=== PATIENT | male | born 1950 | race Caucasian/White ===

== ENCOUNTER 2019-06-18 12:07 | Observation (INO) | payer MEDICARE, OTHER, SELFPAY ==
[2019-06-18] VITALS (16 sets, daily range): BP systolic 122–177; BP diastolic 78–101; PULSE 66–98; RESP 14–21; TEMP 36.5–36.6; O2SAT 96–99; BMI 28.8; BMI 27.1
[2019-06-18 12:25] LABS: Bedside Glucose 133 mg/dL (70-110)
--- NOTE | 2019-06-18 12:30 | CM.ED ---
SOCIAL WORK RESPONDED TO STROKE ALERT. NO FAMILY PRESENT AT THIS TIME. THIS WORKER TO REMAIN AVAILABLE FOR NEEDS. Eva MADDEN, HEAD SCREEN WORKER, NET UI DEVELOPER.
--- NOTE | 2019-06-18 12:35 | CT_ITS ---
We are attempting to reach an attending provider to discuss findings. An addendum with communication details will be sent when the communication is complete. STUDY: CT BRAIN WITHOUT CONTRAST REASON FOR EXAM: Male, 68 years old. RT EYE TWITCHING, CVA RADIATION DOSAGE (If Supplied By Facility): CTDIvol = ( 44.99 ) mGy, DLP = ( 779.24 ) mGycm TECHNIQUE: Transaxial CT imaging of the brain was performed without administration of intravenous contrast material. Individualized dose optimization techniques were used for this CT. CLINICAL HISTORY: 68 years Male, RT EYE TWITCHING, CVA COMPARISON: TECHNIQUE: A CT scan of the head was performed without IV contrast in the axial plane. Coronal and sagittal reconstruction images were also obtained. This exam was performed according to our departmental dose-optimization program, which includes automated exposure control, adjustment of the mA and/or kV according to patient size and/or use of iterative reconstruction technique. FINDINGS: The rosette, medulla, and cerebellum appear to be normal. The ventricles appear normal in size. There appears to be some mild asymmetry in the right frontal cortical sulci probably due to mild head rotation. The basal ganglia appear to be normal. The inner and outer tables of the skull are intact. The frontal, ethmoid, maxillary, and sphenoid sinuses are normal. The mastoid air cells are normal. CT/Brain/Head without Contrast IMPRESSION: Normal CT scan of the head. Electronically Signed: Zach Escobedo, at 13:06 EST Tel , Service support ,
--- NOTE | 2019-06-18 12:41 | EKG12_ITS ---
Test Reason : STROKE ALERT Blood Pressure : / mmHG Vent. Rate : 081 BPM Atrial Rate : 081 BPM P-R Int : 156 ms QRS Dur : 110 ms QT Int : 402 ms P-R-T Axes : 033 013 006 degrees QTc Int : 466 ms Normal sinus rhythm Normal ECG Confirmed by OSEAS AGUERO, JESSI ([id number]), production editor DEN HECK ([id number]) on 06/23/2019 8:43:17 AM Referred By: RICK Confirmed By:ALEX FAROOQ MD
--- NOTE | 2019-06-18 12:45 | RAD_ITS ---
EXAM DESCRIPTION: PORTABLE AP CHEST CLINICAL HISTORY: 68 years Male, blurred vision, stroke protocol blurred vision, stroke protocol COMPARISON: None FINDINGS: The thorax is intact. The heart and mediastinum appear to be within normal limits. The patient''s taken a somewhat poor inspiratory effort with mild eventration of the right hemidiaphragm. This is causing some mild vascular and interstitial crowding in the right perihilar region. There is no evidence of pneumonic consolidation or pleural effusion. RAD/Chest 1 View IMPRESSION: No acute pathology. Electronically Signed: Zach Escobedo, at 13:56 EST Tel , Service support ,
[2019-06-18 12:53] LABS: Absolute Lymphocyte Count 1.13 X10^3/uL (0.83-4.51); Basophil# 0.05 X10^3/uL; Basophil% 0.9 % (0-1); Eosinophil# 0.22 X10^3/uL; Eosinophils% 3.8 % (0-5); Hematocrit 41.9 % (40-54); Hemoglobin 14.4 g/dL (13.0-16.5); Lymphocyte # 1.13 X10^3/ul (4.0); Lymphocyte % 19.3 % (19-41); Mean Corp Hgb Conc 34.4 g/dL (32-36); Mean Corpuscular Hgb 32.1 pg (27.0-32.0); Mean Corpuscular Volume 93.5 fL (80-94); Mean Platelet Vol. 8.8 fl (6.2-12.0); Monocyte# 0.48 X10^3/uL; Monocyte% 8.2 % (0-10); NRBC Flagged by Analyzer 0 % (0-5); Neutrophil # 3.97 X10^3/uL (2.7-7.7); Neutrophil % 67.6 % (47-70); Platelet Count 272 K/mm3 (150-450); RBC Distribution Width CV 12.9 % (11.6-14.6); RBC Distribution Width SD 44.1 fl (35.1-43.9); Red Blood Count 4.48 M/mm3 (4.6-6.2); White Blood Count 5.9 K/mm3 (4.4-11.0)
[2019-06-18 13:02] LABS: International Normalized Ratio 1.1; Prothrombin Time (Protime)PT. 13.8 SECONDS (11.7-14.9)
[2019-06-18 13:03] LABS: Partial Thromboplast Time 28.3 Seconds (24.1-36.2)
--- NOTE | 2019-06-18 13:10 | CT_ITS ---
STUDY: CTA HEAD AND NECK WITH CONTRAST REASON FOR EXAM: Male, 68 years old. VISION CHANGES RADIATION DOSAGE (If Supplied By Facility): CTDIvol = ( 17.43 ) mGy, DLP = ( 720.02 ) mGycm TECHNIQUE: CT angiography was performed with a multi-detector CT scanner. Data acquisition was obtained from the skull base through the vertex following intravenous administration of 100ML [id number]. MIP images were reconstructed from the axial data set. Post-processing of the angiographic images was performed, with multiplanar reformation and 3D reconstruction. Individualized dose optimization techniques were used for this CT. COMPARISON: No relevant priors. FINDINGS: Normal bilateral petrous carotid arteries. Normal right cavernous carotid artery with a normal supraclinoid bifurcation. Normal left cavernous carotid artery with a normal supraclinoid bifurcation. There is hypoplastic development of the right A1 segment of the anterior cerebral arteries with an atretic but intact artery. Normal left A1 segments of the anterior cerebral artery. Normal intact anterior communicating artery (ACOM). Normal bilateral A2 segments of the anterior cerebral arteries. Normal right M1 and M2 segments of the middle cerebral arteries, with a normal M1 bifurcation. Normal left M1 and M2 segments of the middle cerebral arteries, with a normal M1 bifurcation. There is a persistent origin of the right posterior cerebral artery with absence of the posterior communicating artery (PCOM). Normal left posterior communicating artery (PCOM). Normal bilateral vertebral arteries. Normal basilar artery with a normal basilar bifurcation. The visualized bilateral superior cerebellar (SCA) arteries are normal. Normal bilateral P1, P2 and visualized P3 segments of the posterior cerebral arteries. There is no demonstrated aneurysm of the [place]. There is no demonstrated abnormality of the visualized brain. AORTIC ARCH: There is a bovine origin of the great vessels arising from the aortic arch with a common origin of the brachiocephalic and left common carotid artery. Normal origin of the left subclavian artery. Normal origins of the brachiocephalic, left common carotid, and left subclavian arteries. RIGHT CAROTID ARTERIES: Normal right common carotid artery (CCA). There is moderate atherosclerotic plaque formation with moderate narrowing of the right carotid bulb. There is moderate atherosclerotic plaque formation of the origin of the right internal carotid artery with an estimated stenosis of 50-69% stenosis. Normal visualized cervical portion of the right internal carotid artery. Normal origin of the right external carotid artery (ECA). LEFT CAROTID ARTERIES: Normal left common carotid artery (CCA). There is mild atherosclerotic plaque formation with minimal narrowing of the left carotid bulb. There is mild atherosclerotic plaque formation of the origin of the left internal carotid artery with less than 50% cross sectional diameter stenosis. Normal visualized cervical portion of the left internal carotid artery. Normal origin of the left external carotid artery (ECA). VERTEBRAL ARTERIES: Normal bilateral vertebral arteries. CT/CTA Head AND Neck W/ Contrast IMPRESSION: 1. Bovine arch. 2. Moderate (60%) (right carotid stenosis. 3. Mild (30%) stenosis left carotid stenosis. 4. Patent vertebral arteries bilaterally. 5. 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 6. Persistent origin of the right posterior cerebral artery. 7. No intracranial stenosis or aneurysm. Electronically Signed: oTrsten Rodrigues MD at 14:37 EST Tel , Service support ,
[2019-06-18 13:12] LABS: Anion Gap 5 (5-15); BUN 14 mg/dL (7-18); BUN/Creat Ratio 12.1 RATIO (10-20); CRP < 2.90 mg/L (0.0-3.0); Calcium,Total 8.9 mg/dL (8.5-10.1); Chloride 103 mmol/L (98-107); Creatinine, Serum 1.16 mg/dL (0.70-1.30); EST Glomerular Filtration Rate 67 mL/min (>60); Est Glom Filt Rate - Afr Amer 81 mL/min (>60); Glucose 126 mg/dL (74-106); Potassium 3.2 mmol/L (3.5-5.1); Sodium Level 137 mmol/L (136-145)
[2019-06-18 13:13] LABS: Erythrocyte Sedimentation Rate 7 mm/hr (0-20)
--- NOTE | 2019-06-18 14:03 | ED.DCSUM_ITS ---
History of Present Illness Chief Complaint: Headache Informant: Patient Onset: Today Context: Sudden Onset Timing: Intermittent Quality and Location: - - Vision changes Associated Symptoms: Headache. Negative for: Nausea, Vomiting, Chest Pain Narrative: Patient is a 68-year-old male seen with blurry vision. Patient states he was at home when he suddenly had bilateral blurry vision. He developed a headache. He called 911 was brought to the hospital. His blurry vision had resolved initially when he was in the emergency room. At 1225 he started blurry vision again in his left eye. He states he still has a mild headache but the headache has improved. He denies any other symptoms. He states he otherwise feels well. He is never anything like this before. No other complaints at this time. Past Medical History - Allergies and Home Meds Allergies/Adverse Reactions: Allergies No Known Allergies Allergy (Verified 06/18/19 12:17) Past Medical History: None Surgical History: no surgical history Lives: Alone Smoking Status: Never smoker Alcohol: None Drugs: None Review of Systems General: Denies: Chills, Fever, Sweats Eyes: Reports: Blurred Vision - bilaterally. Denies: Visual changes - bilaterally, Diplopia ENT: Denies: Rhinorrhea, Sore throat Cardiovascular: Denies: Chest pain, Palpitations Respiratory: Denies: Dyspnea, Cough, Dyspnea on exertion Gastrointestinal: Denies: Abdominal pain, Nausea, Vomiting, Diarrhea, Melena, Hematochezia Genitourinary: Denies: Dysuria, Hematuria, Frequency Musculoskeletal: Denies: Back pain, Extremity Pain Skin: Denies: Rash, Wounds Neurological: Reports: Headache. Denies: Weakness, Numbness STROKE Vital Signs/Narrative: Vital Signs Temp Pulse Resp BP Pulse Ox 06/18/19 14:00 86 18 177/98 H 99 06/18/19 13:48 79 16 143/88 H 99 06/18/19 13:15 82 14 151/92 H 97 06/18/19 13:04 81 15 160/94 H 99 06/18/19 12:52 87 18 172/96 H 97 06/18/19 12:14 97.7 F L 89 19 H 176/101 H 98 Inital Vital Signs reviewed: Yes General: Well nourished, Well developed Head: Normocephalic, Atraumatic Eyes: Perrl, EOMI, - - Conjunctival injection, no nystagmus, no visual field cut ENT: Moist mucous membranes, No rhinorrhea Neck: Supple, Nontender Cardiovascular: Regular rate, Regular rhythm, No murmurs Respiratory: No distress, CTA bilaterally, Chest nontender Abdomen: Soft, Nontender, Nondistended, Normal bowel sounds Back: Nontender, Normal Inspection Extremities: Nontender, No edema Skin: Normal color, No rash Neurological: Alert, Oriented x3, Cranial nerves II-XII grossly intact, Normal Strength, Normal Sensation, Normal Gait, - - 0= NIH. Negative for: Parasthesia, Weakness, Left side facial droop, Right side facial droop Psychological: Normal affect Diagnostic/Tx/Re-eval Clinical Impression(s) from Imaging Studies Brain CT 06/18/19 12:35 IMPRESSION: Normal CT scan of the head. Electronically Signed: Zach Escobedo at 13:06 EST Tel , Service support , ADDENDUM: 06/18/19 1344 IMPRESSION: Normal CT scan of the head. N.B. : The above information has been verbally conveyed by Zach Escobedo to dr. Bob MD, on 06/18/2019 13:37:52 (ET). Electronically Signed: Zach Escobedo at 13:06 EST Tel , Service support , Chest X-Ray 06/18/19 12:45 IMPRESSION: No acute pathology. Electronically Signed: Zach Escobedo at 13:56 EST Tel , Service support , Head/Neck CTA 06/18/19 13:10 IMPRESSION: 1. Bovine arch. 2. Moderate (60%) (right carotid stenosis. 3. Mild (30%) stenosis left carotid stenosis. 4. Patent vertebral arteries bilaterally. 5. 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 6. Persistent origin of the right posterior cerebral artery. 7. No intracranial stenosis or aneurysm. Electronically Signed: Torsten Rodrigues MD at 14:37 EST Tel , Service support , Laboratory Data 06/18/19 06/18/19 06/18/19 12:15 12:15 12:15 WBC 5.9 RBC 4.48 L Hgb 14.4 Hct 41.9 MCV 93.5 MCH 32.1 H MCHC 34.4 RDW Std Deviation 44.1 H RDW Coeff of [place] 12.9 Plt Count 272 MPV 8.8 Immature Gran % (Auto) 0.200 Neut % (Auto) 67.6 Lymph % (Auto) 19.3 [place] % (Auto) 8.2 Eos % (Auto) 3.8 Baso % (Auto) 0.9 Absolute Neuts (auto) 4.0 Absolute Lymphs (auto) 1.13 Nucleated RBC % 0 ESR 7 PT 13.8 INR 1.1 APTT 28.3 Sodium 137 Potassium 3.2 L Chloride 103 Carbon Dioxide 29.0 Anion Gap 5 BUN 14 Creatinine 1.16 Estim Creat Clear Calc 60.60 Est GFR (MDRD) Af Amer 81 Est GFR (MDRD) Non-Af 67 BUN/Creatinine Ratio 12.1 Glucose 126 H Hemoglobin A1c Calcium 8.9 Magnesium Troponin I < 0.015 C-React Prot Ext Range < 2.90 TSH POC Glucose 06/18/19 06/18/19 06/18/19 12:15 12:15 12:18 WBC RBC Hgb Hct MCV MCH MCHC RDW Std Deviation RDW Coeff of [place] Plt Count MPV Immature Gran % (Auto) Neut % (Auto) Lymph % (Auto) [place] % (Auto) Eos % (Auto) Baso % (Auto) Absolute Neuts (auto) Absolute Lymphs (auto) Nucleated RBC % ESR PT INR APTT Sodium Potassium Chloride Carbon Dioxide Anion Gap BUN Creatinine Estim Creat Clear Calc Est GFR (MDRD) Af Amer Est GFR (MDRD) Non-Af BUN/Creatinine Ratio Glucose Hemoglobin A1c 5.6 Calcium Magnesium 2.2 Troponin I C-React Prot Ext Range TSH 2.33 POC Glucose 133 H Chest X-Ray - ED: 1 View, Read by ED Physician, Read by Radiologist, No Acute Disease - Rhythm Strip Rhythm Strip: Sinus Rhythm Rate: 81 Ectopy: None - EKG Initial EKG Interpretation: Sinus Rhythm, - - Sinus rhythm at a rate of 81 Normal axis Normal herbals Normal ST segments Compared to prior EKG on 02/10/2008 patient has reversal of T wave inversions in aVF - Medical Decision Making Stroke Team Activated: Yes Reviewed Inclusion/Exclusion criteria: No - NIH 0, symptoms resolved Patient evaluated for sudden onset of blurry vision bilaterally. His symptoms resolved but then returned in his left eye while in the emergency room. When his symptoms returned a stroke alert was called. His NIH was still 0 however. Patient was evaluated by , is concerned about TIA but did not think TPA was indicated at this time. She was stroke neurologist from [facility]. CTA does show some stenosis but no LVO. Patient is given aspirin the emergency room. He will be admitted for further neurologic evaluation. He is agreeable with this. His symptoms did once again resolved while in the emergency room. Of note shahrzad combs is mildly hypertensive while in the emergency room. Is possible that he has undiagnosed hypertension as he is not seen a doctor in years. I did check CRP and ESR as patient was having of vision changes with pain in his left tenriism. This was negative. I have a low suspicion for temporal arteritis. Patient does not currently have any vision changes and does not report any flashers, floaters or visual field cut. I have a lower suspicion for something like acute angle glaucoma with his relapsing and remitting nature. This does sound atypical for something like a retinal artery occlusion, retinal vein occlusion or retinal detachment. I do not think patient needs emergent ophthalmology evaluation at this time. Patient be admitted for medicine service and further evaluation. He is agreeable with this plan. He stable at time of disposition. ED Disposition - Plan for ED Patient: Disposition: Acute Care Hospital [facility] Diagnosis: Vision changes, Stroke-like symptoms
--- NOTE | 2019-06-18 14:32 | PCM.HP.STD ---
Problem List (1) TIA (transient ischemic attack) Status: Acute (2) Elevated BP without diagnosis of hypertension Status: Acute (3) Hypokalemia Status: Acute (4) Hyperglycemia Status: Acute (5) Vision changes Status: Acute History of Present Illness Date of Admission: 06/18/19 Chief Complaint: Vision changes, headache The patient is a 68 y/o M w/ no significant PMHx on no medications who presents to the [facility] ED on 06/18/19 with history of fasting all day the day prior for unclear reason but notes that he had breakfast this morning and went out to the post office when he was talking with an acquaintance in the parking lot at approximately 11 AM he notes sudden onset of bilateral blurry vision as well as bilateral temporal discomfort, not specifically a throbbing, rated maybe 1-2 out of 10 with some improvement upon returning to his car, notes that he sat for approximately 5 to 10 minutes and once he felt he was safe to drive drove down the street to a clinic and asked to be seen by physician with immediate call to EMS and transport to the hospital. Upon transport to the hospital he had resolution of his blurry vision but still had a mild headache but this resolved while in the emergency room. He did have a recurrent episode of left eye vision redness with stroke call at that time. Upon evaluation per hospitalist he had complete resolution of all symptoms. Work-up in the ED in the included T is 97.7, heart rate 89, BP initially 176/101, respiratory rate 18, 90% room air, CBC with WC 5.9, hemoglobin 14.4, platelet 272 without shift, unremarkable coags, BMP with potassium 3.2, glucose 126, troponin less than 0.015, EKG was sinus rhythm with no acute evidence of ischemia, chest x-ray with no acute cardiopulmonary findings, CT brain with no acute intracranial findings, CTA head and neck with a bovine arch, moderate 60% right carotid stenosis, mild 30% stenosis of the left carotid, patent vertebral arteries bilaterally, hypoplastic A1 segment of the right anterior cerebral artery, persistent origin of the right posterior cerebral artery, no intracranial stenosis or aneurysm evident. [facility] telemetry stroke consultation with recommended ESR and CRP which were also obtained and unremarkable. Following evaluation recommended admission to the hospital, FLP, hemoglobin A1c, basic labs as well as coags, echo, EKG, telemetry monitoring to be continued. Past Medical History Allergies No Known Allergies Allergy (Verified 06/18/19 12:17) Home Medications: Ambulatory Orders Medication Instructions Recorded NK 06/18/19 Surgical History: - - Cholecystectomy, left upper extremity surgery status post trauma with hardware. Psychiatric History: No pertinent psych hx Lives: Alone Smoking Status: Never smoker Tobacco Use: Non-smoker Alcohol: Occasional Drugs: None - *Family History Maternal History Items: High Cholesterol, Heart Disease, Hypertension, - - Patient notes that his mother at age 90, had a CABG in her 80s. Paternal History Items: - - Patient notes that his father in his 90s, no significant history, was healthy, no heart disease, diabetes, cancer. Review of Systems Constitutional: Reports: Malaise, Weakness, Fatigue. Denies: Anorexia, Chills, Fever, Weight Change HEENT: Reports: Head Aches, Visual Changes. Denies: Sinus Congestion, Sinus Drainage Cardiovascular: Denies: Chest Pain, Palpitations Respiratory: Denies: Cough, Shortness of breath at rest, Sputum production Gastrointestinal: Denies: Abdominal Pain, Nausea, Vomiting Genitourinary: Denies: Dysuria Musculoskeletal: Denies: Joint Pain, Joint Tenderness Skin: Denies: Rash, Wounds Neurological: Reports: Blurred vision. Denies: Focal weakness, Numbness, Tingling Psychiatric: Denies: Anxiety, Depression, Homicidal Ideations, Suicidal Ideations Hematologic/ Lymphatic: Denies: Easy Bruising, Easy Bleeding VTE Information - Inpt Only VTE Present on Admission: No VTE Mechan Device Prophylaxis: SCD's VTE Pharm Prophylaxis ordered?: Yes Patient Problems: Active and Suspected Problems Vision changes (Acute) Stroke-like symptoms (Acute) TIA (transient ischemic attack) (Acute) Elevated BP without diagnosis of hypertension (Acute) Hypokalemia (Acute) Hyperglycemia (Acute) Subjective: Seated upright in ED bed, no acute stress, continued complete resolution of vision changes and headache now resolved. Objective: Physical Examination: General: awake, alert, oriented x 3 and cooperative, seated upright in the ED bed in no apparent distress. Skin: normal color, turgor, no icterus, cyanosis. HEENT: AT/NC, EOMI, PERRLA, MMM, despite carotid stenosis noted bilaterally no obvious carotid bruits or JVD noted. Lungs: CTA bilaterally, moderate effort, mild decrease BL bases, no rales, ronchi or wheezing. Heart: Regular rate and rhythm; no gallop, rub audible. Abdomen: soft, NTTP, ND, normal BS, no HSM. Extremities: no cyanosis, clubbing, or edema. Neurological: patient awake, alert, oriented x 3; cognitive function intact; pupils equally reactive to light and accomodation; cranial nerves II-XII grossly normal, moving all 4 extremities, no focal deficits, strength preserved, sensation intact, [id number] and [id number] bilaterally appropriate, appropriate chase of vision, negative Babinski, no drift to lower extremities. Psychiatric: affect appears normal, no acute evidence of depressive or anxiety feelings. - Physical Exam Vitals/I&O's: Vital Signs Temp Pulse Resp BP Pulse Ox 97.7 F L 79 21 H 154/97 H 99 06/18/19 12:14 06/18/19 14:31 06/18/19 14:31 06/18/19 14:31 06/18/19 14:31 Oxygen Delivery Method Room Air Weight: 190 lb 0.615 oz Body Mass Index (BMI) 28.8 Finger Stick Blood Glucose 133 Laboratory Results 06/18/19 12:15: WBC 5.9, RBC 4.48 L, Hgb 14.4, Hct 41.9, MCV 93.5, MCH 32.1 H, MCHC 34.4, RDW Std Deviation 44.1 H, RDW Coeff of [place] 12.9, Plt Count 272, MPV 8.8, Immature Gran % (Auto) 0.200, Neut % (Auto) 67.6, Lymph % (Auto) 19.3, [place] % (Auto) 8.2, Eos % (Auto) 3.8, Baso % (Auto) 0.9, Absolute Neuts (auto) 4.0, Absolute Lymphs (auto) 1.13, Nucleated RBC % 0, ESR 7 06/18/19 12:15: PT 13.8, INR 1.1, APTT 28.3 06/18/19 12:15: Sodium 137, Potassium 3.2 L, Chloride 103, Carbon Dioxide 29.0, Anion Gap 5, BUN 14, Creatinine 1.16, Estim Creat Clear Calc 60.60, Est GFR (MDRD) Af Amer 81, Est GFR (MDRD) Non-Af 67, BUN/Creatinine Ratio 12.1, Glucose 126 H, Calcium 8.9, Troponin I < 0.015, C-React Prot Ext Range < 2.90 06/18/19 12:18: POC Glucose 133 H Assessment/Plan All Active Problems Vision changes (Acute) Stroke-like symptoms (Acute) TIA (transient ischemic attack) (Acute) Elevated BP without diagnosis of hypertension (Acute) Hypokalemia (Acute) Hyperglycemia (Acute) The patient is a 68 y/o M w/ no significant PMHx on no medications who presents to the [facility] ED on 06/18/19 with history of fasting all day the day prior for unclear reason but notes that he had breakfast this morning and went out to the post office when he was talking with an acquaintance in the parking lot at approximately 11 AM he notes sudden onset of bilateral blurry vision as well as bilateral temporal discomfort, not specifically a throbbing, rated maybe 1-2 out of 10 with some improvement upon returning to his car, notes that he sat for approximately 5 to 10 minutes and once he felt he was safe to drive drove down the street to a clinic and asked to be seen by physician with immediate call to EMS and transport to the hospital. 1. Transient bilateral vision changes and temporal headache concerning for possible TIA/CVA: Work-up in the ED in the included T is 97.7, heart rate 89, BP initially 176/101, respiratory rate 18, 90% room air, CBC with WC 5.9, hemoglobin 14.4, platelet 272 without shift, unremarkable coags, BMP with potassium 3.2, glucose 126, CRP and ESR normal, troponin less than 0.015, EKG was sinus rhythm with no acute evidence of ischemia, chest x-ray with no acute cardiopulmonary findings, CT brain with no acute intracranial findings, CTA head and neck with a bovine arch, moderate 60% right carotid stenosis, mild 30% stenosis of the left carotid, patent vertebral arteries bilaterally, hypoplastic A1 segment of the right anterior cerebral artery, 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 Will allow permissive HTN, maintain on asa, add high dose statin w/ AM FLP, fall precautions. Obtain mag, TSH, HgbA1c levels. 2. Carotid stenosis bilaterally: We will plan consultation with Dr. Ramirez however will initially obtain carotid ultrasound and once resulted will plan discussion of case with him. 3. Elevated BP without hypertensive diagnosis: We will continue permissive hypertension but if remains elevated once clinically appropriate may need to add oral regimen. 4. Hyperglycemia, mild: Admission glucose 126, possibly stress response, will obtain hemoglobin A1c per protocol #1. 5. Hypokalemia: Admission K+ 3.2, supplementation given, repeat level in AM. 6. DVT prophylaxis: SCDs, Lovenox. Code Visit OBSV E&M: 35047 Initial observation care L3
[2019-06-18] MEDS: Aspirin 325 MG Tablet PO (14:33)
--- NOTE | 2019-06-18 15:31 | MRI_ITS ---
STUDY: MRI BRAIN WITHOUT CONTRAST REASON FOR EXAM: Male, 68 years old. stroke -- blurred vision left eye, burk, today, now resolved TECHNIQUE: Standardized multiplanar fat and water weighted pulse sequences were obtained. COMPARISON: CT of the brain June 18, 2019. FINDINGS: Mild atrophy and mild to moderate periventricular white matter ischemic changes without mass effect or restricted diffusion.. Normal bilateral basal ganglia. Normal thalami. There is no extra-axial fluid accumulation. Normal flow voids within the major intracranial circulation suggesting patency by spin echo criteria. Normal sella turcica, pituitary gland, infundibular stalk, optic chiasm and hypothalamus. Normal tectal plate and pineal gland. Normal midbrain, rosette and medulla. Normal cerebellum. Normal basal cisterns. Normal bilateral temporal bones. Normal bilateral internal auditory canals. No demonstrated orbital abnormality, within the constraints of a routine brain study. Mild mucosal thickening of the ethmoid air cells.. Normal calvarium and skull base. Normal visualized soft tissue structures. Normal visualized upper cervical spine. MRI/Brain without Contrast IMPRESSION: Mild atrophy and mild to moderate periventricular white matter ischemic change without evidence for acute infarct. Electronically Signed: Elijah Marsh MD at 17:06 EST , Service support ,
--- NOTE | 2019-06-18 15:31 | CDU_ITS ---
Reason For Study: CVA Rt. Velocities/BP Lt. Velocities/BP Prox CCA 99.5/10.8 cm/sec. Prox CCA 91.9/18.8 cm/sec. Mid CCA 90.4/20 cm/sec. Mid CCA 97.4/27.9 cm/sec. Dist CCA 100.8/22.6 cm/sec. Dist CCA 95.5/27.9 cm/sec. Prox ICA 136.7/40.2 cm/sec. Prox ICA 71.8/22.5 cm/sec. Mid ICA 101.5/20.4 cm/sec. Mid ICA 70.6/23.4 cm/sec. Dist ICA 72.8/24.9 cm/sec. Dist ICA 85/31.1 cm/sec. Rt. ICA/CCA = 1.4. Lt. ICA/CCA = 0.9. Prox ECA 103.8/24.8 cm/sec. Prox ECA 101/20.6 cm/sec. Rt. Vert. 49.5/17.6 cm/sec. Lt. Vert. 48.7/15.7 cm/sec. Right Extracranial There is intimal thickening but no significant atherosclerotic plaque noted in the right common carotid artery. There is heterogeneous, irregular atherosclerotic plaque noted in the right internal carotid artery. There is intimal thickening but no significant atherosclerotic plaque noted in the right external carotid artery. Antegrade flow is noted in the right vertebral artery. Left Extracranial There is homogeneous, smooth atherosclerotic plaque noted in the left common carotid artery. There is homogeneous, smooth atherosclerotic plaque noted in the left internal carotid artery. There is intimal thickening but no significant atherosclerotic plaque noted in the left external carotid artery. Antegrade flow is noted in the left vertebral artery. Procedure Carotid Duplex [id number]. Exam performed portable in patient room. Interpretation Summary Irregular calcific plague at the proximal right internal and external carotid arteries 50-69% stenosis right internal carotid <50% stenosis right external carotid Smooth plague at the proximal left internal and external carotid arteries. <50% stenosis left internal carotid <50% stenosis left external carotid Patent, antegrade vertebrals bilaterally Ordering Physician: Christel Miguel Referring Physician: Adis Hickman Performed By: Leti Pham RVT
--- NOTE | 2019-06-18 15:31 | ECHOD_ITS ---
Reason For Study: TIA/CVA Procedure This was a 2D Doppler, Color Flow transthoracic echocardiogram. Exam performed portable in patient room. Left Ventricle Normal LV size. The estimated ejection fraction is 60 %. Normal diastology for age. No regional wall motion abnormalities noted. Right Ventricle Normal RV size. Normal systolic function. Atria Normal left atrium. Normal right atrium. No doppler evidence for ASD. Mitral Valve There is no mitral valve stenosis. No mitral valve insufficiency. Tricuspid Valve There is no tricuspid stenosis. Trivial tricuspid valve insufficiency. Unable to estimate RV systolic pressure due to insufficient tricuspid regurgitant envelope. Aortic Valve Trisinus/trileaflet aortic valve. There is no aortic stenosis. No aortic valve insufficiency. Pulmonic Valve There is no pulmonic valvular stenosis. No pulmonic valve insufficiency. Great Vessels Normal aortic root. Pericardium/Pleural No pericardial effusion. Medication Performed a rapid injection of agitated mix of 9 cc saline and 1cc air to assess for atrial septal defect. MMode/2D Measurements & Calculations LVIDd: 4.3 cm IVSd: 0.89 cm Ao root diam: 4.0 cm LVIDs: 2.8 cm LVPWd: 0.89 cm RVDd: 4.2 cm FS: 35.4 % LAV(MOD-bp): 29.6 ml LVAd ap4: 32.4 cm2 SV(MOD-sp4): 61.6 ml LAV(MOD-bp) Indexed: 14.8 ml/m2 EDV(MOD-sp4): 99.1 ml LAV(MOD-sp2): 26.1 ml EDV(sp4-el): 104.0 ml LAV(MOD-sp4): 28.8 ml LVAs ap4: 17.3 cm2 ESV(MOD-sp4): 37.4 ml ESV(sp4-el): 38.6 ml EF(MOD-sp4): 62.2 % EF(sp4-el): 62.9 % SV(sp4-el): 65.4 ml LA A4 area: 12.8 cm2 LA dimension(2D): 3.4 cm RA A4 area: 9.7 cm2 Time Measurements MV dec time: 0.20 sec Doppler Measurements & Calculations MV E max scott: 69.1 cm/sec Lat Peak E' Scott: 10.1 cm/sec Med Peak E' Scott: 8.3 cm/sec MV A max scott: 80.5 cm/sec E/E' lat: 6.8 E/E' med: 8.4 MV E/A: 0.86 Ao V2 max: 120.3 cm/sec LV V1 max: 100.7 cm/sec Ao max P.8 mmHg LV V1 max P.1 mmHg Interpretation Summary The estimated ejection fraction is 60 %. Normal diastology for age. Trivial tricuspid valve insufficiency. Ordering Physician: Christel Miguel Referring Physician: NURYS HUTCHINSON Performed By: Chetna Sanford, ORAL, RVT
[2019-06-18 15:59] LABS: Magnesium 2.2 mg/dL (1.6-2.6); Thyroid Stim Hormone (TSH) 2.33 uIU/mL (0.358-3.74)
[2019-06-18 16:01] LABS: Hemoglobin A1c 5.6 % (4.2-6.3)
[2019-06-18] MEDS: 0.9% Normal Saline 1,000 ML 100 ML IV (17:13)
[2019-06-18 19:04] LABS: Bacteria 0 SEEN /hpf (None Seen); Mucous, Urine 0 SEEN /hpf (<or=2+); Squamous Epithelial Cells - UA 0 SEEN /hpf (0-5); White Blood Cells 0 SEEN /hpf (0-5)
[2019-06-18 19:06] LABS: Color, Urine Yellow (Yellow); Glucose, Dipstick Normal (Normal); Ketone-Dipstick 50 mg/dl (Negative); Leukocyte Esterase-Dipstick Negative /ul (Negative); Nitrite-Dipstick Negative (Negative); Occult Blood-Urine 150 /ul (Negative); Protein-Dipstick Negative (Negative); Specific Gravity, Urine 1.015 (1.002-1.030); Urine Bilirubin Dipstick Negative (Negative); Urine Clarity Clear (Clear); Urine Urobilinogen Normal (Normal); Urine pH 6.5 (5.0 - 8.0)
[2019-06-18 19:17] LABS: Red Blood Cells-Urine 0-5 SEEN /hpf (0-5)
[2019-06-19 03:00] VITALS: PULSE 63
[2019-06-19 03:45] VITALS: BP 141/74; PULSE 66; RESP 16; TEMP 36.9; O2SAT 97
[2019-06-19] MEDS: Sodium Chloride 0.65% 1 SPRAY SPRAY.BTL NASAL (03:47)
[2019-06-19] MEDS: 0.9% Normal Saline 1,000 ML 100 ML IV (04:17)
[2019-06-19 06:18] LABS: Absolute Lymphocyte Count 1.06 X10^3/uL (0.83-4.51); Absolute Neutrophil Count 3.1 X10^3/uL (2.0-7.7); Basophil# 0.04 X10^3/uL; Basophil% 0.8 % (0-1); Eosinophil# 0.26 X10^3/uL; Eosinophils% 5.3 % (0-5); Hematocrit 38.3 % (40-54); Hemoglobin 13.3 g/dL (13.0-16.5); Lymphocyte # 1.06 X10^3/ul (4.0); Lymphocyte % 21.8 % (19-41); Mean Corp Hgb Conc 34.7 g/dL (32-36); Mean Corpuscular Hgb 32.4 pg (27.0-32.0); Mean Corpuscular Volume 93.4 fL (80-94); Mean Platelet Vol. 8.8 fl (6.2-12.0); Monocyte# 0.45 X10^3/uL; Monocyte% 9.2 % (0-10); NRBC Flagged by Analyzer 0 % (0-5); Neutrophil # 3.05 X10^3/uL (2.7-7.7); Neutrophil % 62.7 % (47-70); Platelet Count 231 K/mm3 (150-450); RBC Distribution Width CV 12.8 % (11.6-14.6); RBC Distribution Width SD 43.6 fl (35.1-43.9); White Blood Count 4.9 K/mm3 (4.4-11.0)
[2019-06-19 06:39] LABS: Anion Gap 6 (5-15); BUN 13 mg/dL (7-18); BUN/Creat Ratio 13.2 RATIO (10-20); Calcium,Total 8.5 mg/dL (8.5-10.1); Chloride 113 mmol/L (98-107); Cholesterol 136 mg/dL (200); Creatinine, Serum 0.98 mg/dL (0.70-1.30); EST Glomerular Filtration Rate 81 mL/min (>60); Est Glom Filt Rate - Afr Amer 98 mL/min (>60); Estimated Creatinine Clearance 71.73 ml/min; Glucose 101 mg/dL (74-106); High Density Lipoprotein 34 mg/dL; Potassium 3.6 mmol/L (3.5-5.1); Sodium Level 143 mmol/L (136-145); Triglycerides 114 mg/dL; Very Low Density Lipoprotein 23 mg/dL (5-40)
[2019-06-19 07:00] VITALS: PULSE 69
[2019-06-19 07:15] VITALS: O2SAT 98
[2019-06-19 09:43] VITALS: BP 152/93; PULSE 85; RESP 14; TEMP 36.6; O2SAT 96
--- NOTE | 2019-06-19 11:19 | DCINST_ITS ---
- Discharge Diagnoses Current Active Problems: Current Active and Chronic Problems Vision changes (Acute) Stroke-like symptoms (Acute) TIA (transient ischemic attack) (Acute) Elevated BP without diagnosis of hypertension (Acute) Hypokalemia (Acute) Hyperglycemia (Acute) You will use the following diet at home:: No restrictions Your food should be the consistency of: Regular Your liquids should be the consistency of: Regular/Thin Discharge Activity: Return to Normal Activity Weight Bearing Status: Full weight bearing Additional Instructions: You will need follow up periodically with your Family Doctor regarding you right carotid narrowing-you will need to discuss this with him-make an appointment with the next three months with your physician for follow up Allergies/Adverse Reactions: Allergies No Known Allergies Allergy (Verified 06/18/19 12:17) Medications to take at Discharge NK 06/18/19 Primary Care Physician: Adis Hickman MD [Primary Care Provider] - Please follow up with your Primary Care Physician in: as directed Test Results: Test results from this visit will be discussed in further detail at your follow- up appointment, if applicable.
--- NOTE | 2019-06-19 13:08 | CASEMGMT ---
Patient declined PHQ-9 as he said he did not have a Stroke or TIA. Yas LEON MSW
--- NOTE | 2019-06-22 09:00 | DS.PCM_ITS ---
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 Patient called 911 and was brought into the hospital by squad, blurred vision resolved initially when he was seen in the emergency room but this complaint began again in the left eye shortly after he arrived in the emergency room. A stroke team was called, patient had a CT of the brain and a CT of the head and neck, CT of the brain showed no evidence of stroke, CT of the neck showed moderate right carotid stenosis at 60% and mild left carotid stenosis. Tele- neurologist from [facility] did not feel the patient warranted TPA. Patient was placed in observation status on PCU and neurochecks were carried out, patient had an echocardiogram which was unremarkable, arterial duplex scan of the carotids which showed 50 to 69% stenosis in the right internal carotid and less than 50% stenosis in the left internal carotid. Patient underwent an MRI scan of the brain which showed no evidence of stroke. On 06/19/2019, patient was seen and examined: On examination he appeared in good health and spirits. Vital signs as documented. Skin warm and dry and without overt rashes. Neck without JVD. Lungs clear. Heart exam notable for regular rhythm, normal sounds and absence of murmurs, rubs or gallops. Abdomen unremarkable and without evidence of organomegaly, masses, or abdominal aortic enlargement. Extremities nonedematous. Neuro: Cranial nerves II through XII are grossly intact, no focal motor deficits were noted, sensation to light touch and pinprick intact. Psych: Patient is alert and oriented x3, he does not appear anxious or depressed On 06/19/2019, patient was seen and examined and felt to be in stable condition for discharge home, he was instructed to follow-up with his eye doctor concerning his complaints of blurred vision. - Physical Exam Vitals/I&O's: Vital Signs Temp Pulse Resp BP Pulse Ox 97.8 F 85 14 152/93 H 96 06/19/19 09:43 06/19/19 09:43 06/19/19 09:43 06/19/19 09:43 06/19/19 09:43 Oxygen Delivery Method Room Air Weight: 80.9 kg Body Mass Index (BMI) 27.1 Finger Stick Blood Glucose 133 Discharge Activity: Return to Normal Activity Weight Bearing Status: Full weight bearing Home Medications: Medications to take at Discharge NK 06/18/19 Primary Care Physician: Adis Hickman MD [Primary Care Provider] - Please follow up with your Primary Care Physician in: as directed Disposition: Home Minutes spent on discharge:: 30 Patient Condition:: Stable Medical Necessity - Tobacco Use Smoking Status: Never smoker Tobacco Use: Non-smoker Meaningful Use Info Meaningful Use Diagnoses (Choose all that apply): None applicable Code Visit OBSV E&M: 88443 Observation care discharge
== END 2019-06-19 11:23 | disposition home or self-care (01) ==
LOC: ED 14:16 → PCU 15:17
PROVIDERS: Admitting Provider Family Medicine; Emergency Provider Emergency Medicine; PCP Internal Medicine; Visit Provider Internal Medicine
DX: R51 Headache (principal); E87.6 Hypokalemia; H53.8 Other visual disturbances; R03.0 Elevated blood-pressure reading, without diagnosis of hypertension; R73.9 Hyperglycemia, unspecified; I65.23 Occlusion and stenosis of bilateral carotid arteries; I07.1 Rheumatic tricuspid insufficiency; R29.700 NIHSS score 0
CPT/HCPCS: 36415; 70450; 70496; 70498; 70551; 71045; 80048; 80061; 81001; 82962; 83036; 83735; 84443; 84484; 85025; 85610; 85652; 85730; 86140; 93005; 93306; 93880; 94762; 99285; J7030; Q9967; A4216

== ENCOUNTER 2019-09-01 11:21 | Inpatient (IN) | payer MEDICARE, SELFPAY ==
[2019-06-18 23:10] VITALS: BMI 27.1
[2019-09-01] VITALS (9 sets, daily range): BP systolic 138–160; BP diastolic 73–95; PULSE 75–87; RESP 14–20; TEMP 36.1–36.8; O2SAT 98–100; BMI 25.0; BMI 25.9
--- NOTE | 2019-09-01 11:45 | EKG12_ITS ---
Test Reason : CP Blood Pressure : / mmHG Vent. Rate : 085 BPM Atrial Rate : 085 BPM P-R Int : 120 ms QRS Dur : 104 ms QT Int : 398 ms P-R-T Axes : 012 029 019 degrees QTc Int : 473 ms Normal sinus rhythm Normal ECG Confirmed by FRITZ OBRIEN ([id number]), image editor JOSE MARTIN VASQUEZ ([id number]) on 09/08/2019 1:44:19 PM Referred By: ANJEL/IDRIS Confirmed By:FRITZ OBRIEN
--- NOTE | 2019-09-01 11:48 | ED.DCSUM_ITS ---
- ER Visit Summary Date of Service: 09/01/19 Chief Complaint: Chest pain and fatigue History of Present Illness: The patient is a 69 M who presents with fatigue and chest pain that is been getting worse over the past 2 weeks. Patient states is been waxing and waning but is been constant. Patient states it is worse with any exertion. Patient states he gets better with rest. Patient describes it as tightness. Patient states it is localized to the left chest area. Patient admits to some shortness of breath. Patient also admits to some lightheadedness that is worse when he bends over. Patient also admits to some acid reflux symptoms. Patient denies any nausea or vomiting. Patient denies any di aphoresis. Patient denies any cardiac or PE risk factors. Physical Examination: Vital signs are stable. Patient is afebrile. Patient is in no acute distress. Pupils are equal, round, reactive to light bilaterally. Extraocular muscles are intact. Neck is supple. Trachea is midline. There is no JVD. Heart was regular rate and rhythm. Lungs are clear and equal bilatera lly. Abdomen is soft. Bowel sounds are normal. There is no tenderness. Cranial nerves II through XII are intact. There are no focal motor or sensory deficits noted. Extremities are intact. There is no calf tenderness or edema. Skin is warm and dry. There is some icterus noted. Test Results: EKG showed normal sinus rhythm with a rate of 85. There are no acute ST or T wave changes. CBC is within normal limits. Comprehensive metabolic profile showed an elevated total bilirubin of 4.2, ALT of 308, AST of 185, and alk phos of 606. Lipase was added and is pending. Troponin was normal. CT scan of the abdomen pelvis was obtained. There is dilation of the bile duct, hepatic duct, and pancreatic ducts. This was interpreted by the radiologist and reviewed by myself. Emergency Department Course and Treatment: Patient was given aspirin. Patient was feeling better on reevaluation. Given the CT findings, case was discussed with Dr. Rodriguez. He will admit the patient to his service. Patient understood and was agreeable with the plan. All questions were answered. Disposition: Admit to hospital Impression: Biliary obstruction This note was generated with [employer] dictation software. It may contain incorrect words, spelling, and punctuation that were not noted in review of the chart prior to signing ED Disposition - Plan for ED Patient: Disposition: Acute Care Hospital [facility] Diagnosis: Biliary obstruction Referrals: Anjelica Mendoza MD [Primary Care Provider] -
[2019-09-01 11:54] LABS: Absolute Lymphocyte Count 0.67 X10^3/uL (0.83-4.51); Absolute Neutrophil Count 4.3 X10^3/uL (2.0-7.7); Basophil# 0.05 X10^3/uL; Basophil% 0.9 % (0-1); Eosinophil# 0.28 X10^3/uL; Eosinophils% 4.9 % (0-5); Hematocrit 38.9 % (40-54); Hemoglobin 13.1 g/dL (13.0-16.5); Lymphocyte # 0.67 X10^3/ul (4.0); Lymphocyte % 11.7 % (19-41); Mean Corp Hgb Conc 33.7 g/dL (32-36); Mean Corpuscular Hgb 33.2 pg (27.0-32.0); Mean Corpuscular Volume 98.7 fL (80-94); Mean Platelet Vol. 9.4 fl (6.2-12.0); Monocyte# 0.44 X10^3/uL; Monocyte% 7.7 % (0-10); NRBC Flagged by Analyzer 0 % (0-5); Neutrophil # 4.28 X10^3/uL (2.7-7.7); Neutrophil % 74.5 % (47-70); Platelet Count 382 K/mm3 (150-450); RBC Distribution Width CV 13.6 % (11.6-14.6); RBC Distribution Width SD 49.9 fl (35.1-43.9); Red Blood Count 3.94 M/mm3 (4.6-6.2); White Blood Count 5.7 K/mm3 (4.4-11.0)
--- NOTE | 2019-09-01 11:55 | RAD_ITS ---
STUDY: X-RAY CHEST REASON FOR EXAM: Male, 69 years old. chest tightness for several days, fatigue, insomnia, increased thirst, abd discomfort for a couple of weeks TECHNIQUE: Single AP portable view of the chest. COMPARISON: June 18, 2019 FINDINGS: The lungs are clear and expanded. There is no demonstrated pleural abnormality. Normal size heart. Stable visualized mediastinal and osseous structures. RAD/Chest 1 View (Portable) IMPRESSION: No acute process Electronically Signed: Fili Hines MD at 12:07 EDT , Service support ,
[2019-09-01 12:00] LABS: International Normalized Ratio 1.2; Partial Thromboplast Time 29.1 Seconds (24.1-36.2); Prothrombin Time (Protime)PT. 14.3 SECONDS (11.7-14.9)
[2019-09-01 12:07] LABS: ALB/GLOB Ratio 0.7 RATIO (0.9-2.4); AST(SGOT) 185 U/L (15-37); Alanine Aminotransfer ALT/SGPT 308 U/L (16-61); Alkaline Phosphatase 606 U/L (45-117); Anion Gap 6 (5-15); BUN 11 mg/dL (7-18); BUN/Creat Ratio 10.3 RATIO (10-20); Chloride 104 mmol/L (98-107); Creatinine, Serum 1.07 mg/dL (0.70-1.30); EST Glomerular Filtration Rate 73 mL/min (>60); Est Glom Filt Rate - Afr Amer 89 mL/min (>60); Estimated Creatinine Clearance 64.81 ml/min; Globulin 4.5 g/dL (2.2-4.2); Glucose 159 mg/dL (74-106); Protein, Total 7.5 g/dL (6.4-8.2); Sodium Level 139 mmol/L (136-145)
[2019-09-01] MEDS: Aspirin 81 MG TAB.CHEW 324 MG PO (12:11)
--- NOTE | 2019-09-01 12:20 | CT_ITS ---
STUDY: CT ABDOMEN AND PELVIS WITH CONTRAST REASON FOR EXAM: Male, 69 years old. CHEST HEAVINESS FOR SEVERAL DAYS, INCREASED FATIGUE, INSOMNIA, INCREASED THIRST, ABD DISCOMFORT, JAUNDICE, CHOLECYSTECTOMY RADIATION DOSAGE (If Supplied By Facility): CTDIvol = ( 12.66 ) mGy, DLP = ( 1652.30 ) mGycm TECHNIQUE: Transaxial images were obtained from the dome of the diaphragm to the symphysis pubis with oral contrast. Oral and amp;amp; IV Gastrografin and amp;amp; 100mL Isovue-300 was administered. Sagittal and coronal images were reconstructed. Individualized dose optimization techniques were used for this CT. COMPARISON: None. FINDINGS: Minimal degree of bibasilar atelectasis. Coronary artery calcification. The patient is status post cholecystectomy. There is evidence of a intrahepatic biliary ductal dilatation with the dilatation of the common bile duct down to the level of the ampulla of Vater. There is evidence of a diverticulum in the second portion of the duodenum. The common bile duct measures 1.5 cm distally. Normal spleen. There is evidence of a dilated pancreatic duct throughout the entire course of the pancreas. There is diffuse atrophy of the pancreas. Normal bilateral adrenal glands. Normal right kidney. Normal left kidney. Normal visualized stomach. Diverticulum in the second portion of the duodenum. Normal colon. The appendix is visualized and appears normal. There is scattered atherosclerotic calcification of the abdominal aorta, without a demonstrated aneurysm. Normal inferior vena cava. Normal retroperitoneum. Normal urinary bladder. Normal abdominal wall. Normal osseous structures. CT/Abdomen/Pelvis WITH Contrast IMPRESSION: Status post cholecystectomy. Dilatation of the intra and extrahepatic biliary ducts as well as the pancreatic duct. The pancreas is diffusely atrophied. Electronically Signed: Keenan Littlejohn, at 14:49 EDT , Service support ,
[2019-09-01 16:04] LABS: Lipase 541 U/L (73-393)
--- NOTE | 2019-09-01 16:36 | NURSING ---
MED SURG [facility] BILIARY OBSTRUCTION
--- NOTE | 2019-09-01 16:48 | MRI_ITS ---
HISTORY: jaundice, weight loss, abd pain, SOB x 2 days ADDITIONAL HISTORY: None provided. COMPARISON: CT 09/01/2019 TECHNIQUE: Multiplanar, multisequence MRI of the abdomen without contrast. MRCP images acquired with 2D and 3D MRCP images reviewed. FINDINGS: LOWER THORAX: Mild basilar atelectasis. LIVER: No concerning focal lesion, evaluation limited in the absence of contrast. GALLBLADDER: Cholecystectomy. BILE DUCTS: Moderate intrahepatic and extra hepatic biliary dilatation with abrupt caliber transition at the level of the pancreatic head. PANCREAS: Atrophic with pancreatic ductal dilatation including side branch dilatation. Area of slightly T2 hyperintense fullness is present at the caudal aspect of the ductal transition measuring approximately 2.3 x 2.6 cm on series 3 image 16. KIDNEYS/URETERS: Unremarkable. ADRENAL GLANDS: Unremarkable. SPLEEN: Unremarkable. GI TRACT: Unremarkable as imaged. LYMPH NODES: No pathologic appearing adenopathy. FREE FLUID: None. SKELETON AND SOFT TISSUES: No acute findings. MRI/MRCP Abdomen without Contrast IMPRESSION: Biliary and pancreatic ductal obstruction. Suspect pancreatic head mass, evaluation limited due to lack of contrast and due to motion artifact. Dynamic enhanced pancreatic mass protocol MRI or CT of the pancreas versus endoscopic ultrasound recommended for further evaluation. at 0034 Reported and signed by: Savannah Matta MD Electronically Signed: Savannah Matta MD at 0:33 EDT Tel , Service support ,
--- NOTE | 2019-09-01 16:50 | HP.PCM_ITS ---
Problem List (1) Biliary obstruction Status: Acute History of Present Illness Date of Admission: 09/01/19 The patient is a 69 year old M with multiple complaints. The patient reports for last 2 weeks has been very fatigued. He reports he is not able to take deep breaths as he is having chest pain. He does not say he is having shortness of breath or fevers or chills. He has having some nausea. He was recently admitted for rule out TIA after having blurry vision. He is not describe any back pain. He says he had his gallbladder out years ago. He also says he has had 10 pounds of weight loss over the past 2 weeks. Past Medical History Allergies No Known Allergies Allergy (Verified 09/01/19 11:23) Home Medications: Ambulatory Orders Medication Instructions Recorded NK 06/18/19 Surgical History: - - Cholecystectomy, left upper extremity surgery status post trauma with hardware. Psychiatric History: No pertinent psych hx Smoking Status: Never smoker - *Family History Maternal History Items: High Cholesterol, Heart Disease, Hypertension, - - Patient notes that his mother at age 90, had a CABG in her 80s. Paternal History Items: - - Patient notes that his father in his 90s, no significant history, was healthy, no heart disease, diabetes, cancer. Review of Systems Constitutional: Reports: Anorexia. Denies: Chills, Fever Eyes: Reports: Blurred vision HEENT: Denies: Difficulty Swallowing Cardiovascular: Reports: Chest Pain Respiratory: Denies: Cough, Shortness of Breath Gastrointestinal: Reports: Abdominal Pain, Nausea. Denies: Constipation, Diarrhea, Dyspepsia, Hematemesis, Hematochezia, Vomiting Genitourinary: Denies: Dysuria Skin: Reports: Jaundice Neurological: Denies: Balance problems Hematologic/ Lymphatic: Denies: Anemia VTE Information - Inpt Only VTE Present on Admission: No VTE Mechan Device Prophylaxis: SCD's Patient Problems: Active and Suspected Problems Biliary obstruction (Acute) - Physical Exam Vitals/I&O's: Vital Signs Temp Pulse Resp BP Pulse Ox 96.9 F L 80 14 138/94 H 98 09/01/19 11:23 09/01/19 15:38 09/01/19 15:38 09/01/19 15:38 09/01/19 15:38 Oxygen Delivery Method Room Air Weight: 165 lb Body Mass Index (BMI) 25.0 Finger Stick Blood Glucose 133 General: Alert, Oriented x3 HEENT: Atraumatic Neck: No JVD Lungs: Normal air movement Cardiovascular: Regular rate, Regular Rhythm Abdomen: Soft, Non-Distended Extremities: No clubbing Skin: No rashes Musculoskeletal: No Muscle Wasting Neurological: Cranial nerves II-XII grossly intact Psych/Mental Status: Normal Affect Laboratory Results 09/01/19 11:35: Sodium 139, Potassium 3.0 L, Chloride 104, Carbon Dioxide 29.0, Anion Gap 6, BUN 11, Creatinine 1.07, Estim Creat Clear Calc 64.81, Est GFR (MDRD) Af Amer 89, Est GFR (MDRD) Non-Af 73, BUN/Creatinine Ratio 10.3, Glucose 159 H, Calcium 9.0, Total Bilirubin 4.20 H, AST 185 H, ALT 308 H, Alkaline Phosphatase 606 H, Troponin I < 0.015, Total Protein 7.5, Albumin 3.0 L, Globulin 4.5 H, Albumin/Globulin Ratio 0.7 L 09/01/19 11:35: WBC 5.7, RBC 3.94 L, Hgb 13.1, Hct 38.9 L, MCV 98.7 H, MCH 33.2 H, MCHC 33.7, RDW Std Deviation 49.9 H, RDW Coeff of [place] 13.6, Plt Count 382, MPV 9.4, Immature Gran % (Auto) 0.300, Neut % (Auto) 74.5 H, Lymph % (Auto) 11.7 L, [place] % (Auto) 7.7, Eos % (Auto) 4.9, Baso % (Auto) 0.9, Absolute Neuts (auto) 4.3, Absolute Lymphs (auto) 0.67 L, Nucleated RBC % 0 09/01/19 11:35: PT 14.3, INR 1.2, APTT 29.1 09/01/19 11:35: Lipase 541 H 09/01/19 12:35: Hepatitis A IgM Ab Pending, Hep Bs Antigen Pending, Hep B Core IgM Ab Pending, Hepatitis C Ab (EIA) Pending Clinical Impression(s) from Imaging Studies Chest X-Ray 09/01/19 11:55 IMPRESSION: No acute process Electronically Signed: Fili Hines MD at 12:07 EDT , Service support , Abdomen/Pelvis CT 09/01/19 12:20 IMPRESSION: Status post cholecystectomy. Dilatation of the intra and extrahepatic biliary ducts as well as the pancreatic duct. The pancreas is diffusely atrophied. Electronically Signed: Keenan Littlejohn, at 14:49 EDT , Service support , Current Medications Sodium Chloride () 1,000 mls @ 125 mls/hr IV .Q8H BRIGITTE Morphine Sulfate () 2 - 4 mg IV Q2H PRN PRN PRN Reason: Pain Score 4-10/10 Ondansetron HCl (Zofran) 4 mg IV Q6H PRN PRN PRN Reason: NAUSEA Assessment/Plan All Active Problems Vision changes (Acute) Stroke-like symptoms (Acute) TIA (transient ischemic attack) (Acute) Elevated BP without diagnosis of hypertension (Acute) Hypokalemia (Acute) Hyperglycemia (Acute) Biliary obstruction (Acute) 69-year-old male with obstructive jaundice 1. The patient has many nonspecific symptoms. He does have elevated liver enzymes indicative of obstruction. His CT scan does show dilated bile ducts with no obvious stone or mass. I will admit the patient and order an MRCP. I will also consult the hospitalist group for second opinion due to his nonspecific symptoms. Navneet Rodriguez MD Pager: [facility] [address] [place] [address], [address] [place] [address] Office:
--- NOTE | 2019-09-01 16:51 | PN_ITS ---
Patient Problems: Active and Suspected Problems Biliary obstruction (Acute) Subjective: Patient is a 69-year-old male who was admitted through the ED with a constellation of very vague symptoms. He was admitted with a complaint of fatigue which have been going on for about 2 to 3 weeks and states that been worsening. He also found it difficult taking in a deep breath though he denied any chest pain or chest pressure. He admitted to some occasional shortness of breath and some lightheadedness and also thought he might have some reflux symptoms but denied any fever or chills, nausea vomiting or any recent travels. In the ED, vitals were significant for blood pressure of 153/82 with respiratory rate of 20 and was otherwise normal. Chemistry showed potassium of 3 and total bilirubin of 4.2 with AST of 185, ALT of 3 oh 88 ALP of 606. Lipase was 541. Total protein was 7.5 and albumin was 3. CBC showed hemoglobin of 13.1 and white cell count of 5.7 with platelets of 382. CT of the abdomen and pelvis shows status post cholecystectomy with dilatation of the intra-and extrahepatic biliary duct as well as pancreatic duct with the pancreas diffusely atrophic. He has been admitted to the general surgery service but hospitalist service was consulted by general surgery to help with medical management. Vitals/I&O's: Vital Signs Temp Pulse Resp BP Pulse Ox 96.9 F L 80 14 138/94 H 98 09/01/19 11:23 09/01/19 15:38 09/01/19 15:38 09/01/19 15:38 09/01/19 15:38 Oxygen Delivery Method Room Air Weight: 165 lb Body Mass Index (BMI) 25.0 Finger Stick Blood Glucose 133 General: Alert, Oriented x3, Cooperative, No apparent distress HEENT: Atraumatic, PERRLA, EOMI, Normocephalic, - - jaundiced sclera Oral: Dry Mucosa Neck: Supple, No JVD, Negative Carotid Bruits Lungs: Clear to auscultation, Normal air movement, No rhonchi, No wheeze, No rales Cardiovascular: Regular rate, Regular Rhythm, Normal S1, Normal S2, No murmurs Abdomen: Bowel Sounds Present, Soft, Non Tender, Non-Distended, No Hepato- splenomegaly Extremities: No clubbing, No cyanosis, No edema, Capillary Refill Less than 3 Seconds Skin: No rashes, No breakdown, - - has icteric skin Musculoskeletal: No Tenderness to Palpation of Joints or Extremities Lymphatic: No Cervical, Supraclavicular, or Inguinal Adenopathy Neurological: Cranial nerves II-XII grossly intact, Neuro grossly intact, Motor Exam 5/5 strength throughout Psych/Mental Status: Normal Affect, Appropriate, Alert and oriented to time, place, person, mood and affect Laboratory Results 09/01/19 11:35: Sodium 139, Potassium 3.0 L, Chloride 104, Carbon Dioxide 29.0, Anion Gap 6, BUN 11, Creatinine 1.07, Estim Creat Clear Calc 64.81, Est GFR (MDRD) Af Amer 89, Est GFR (MDRD) Non-Af 73, BUN/Creatinine Ratio 10.3, Glucose 159 H, Calcium 9.0, Total Bilirubin 4.20 H, AST 185 H, ALT 308 H, Alkaline Phosphatase 606 H, Troponin I < 0.015, Total Protein 7.5, Albumin 3.0 L, Globulin 4.5 H, Albumin/Globulin Ratio 0.7 L 09/01/19 11:35: WBC 5.7, RBC 3.94 L, Hgb 13.1, Hct 38.9 L, MCV 98.7 H, MCH 33.2 H, MCHC 33.7, RDW Std Deviation 49.9 H, RDW Coeff of [place] 13.6, Plt Count 382, MPV 9.4, Immature Gran % (Auto) 0.300, Neut % (Auto) 74.5 H, Lymph % (Auto) 11.7 L, [place] % (Auto) 7.7, Eos % (Auto) 4.9, Baso % (Auto) 0.9, Absolute Neuts (auto) 4.3, Absolute Lymphs (auto) 0.67 L, Nucleated RBC % 0 09/01/19 11:35: PT 14.3, INR 1.2, APTT 29.1 09/01/19 11:35: Lipase 541 H 09/01/19 12:35: Hepatitis A IgM Ab Pending, Hep Bs Antigen Pending, Hep B Core IgM Ab Pending, Hepatitis C Ab (EIA) Pending Diagnostic Data Chest X-Ray 09/01/19 11:55 IMPRESSION: No acute process Electronically Signed: Fili Hines MD at 12:07 EDT , Service support , Abdomen/Pelvis CT 09/01/19 12:20 IMPRESSION: Status post cholecystectomy. Dilatation of the intra and extrahepatic biliary ducts as well as the pancreatic duct. The pancreas is diffusely atrophied. Electronically Signed: Keenan Littlejohn, at 14:49 EDT , Service support , Current Medications Sodium Chloride () 1,000 mls @ 125 mls/hr IV .Q8H BRIGITTE Morphine Sulfate () 2 - 4 mg IV Q2H PRN PRN PRN Reason: Pain Score 4-10/10 Ondansetron HCl (Zofran) 4 mg IV Q6H PRN PRN PRN Reason: NAUSEA STROKE Vital Signs/Narrative: Vital Signs Pulse Resp BP Pulse Ox 09/01/19 15:38 80 14 138/94 H 98 Medical Necessity - Tobacco Use Smoking Status: Never smoker Assessment/Plan All Active Problems Vision changes (Acute) Stroke-like symptoms (Acute) TIA (transient ischemic attack) (Acute) Elevated BP without diagnosis of hypertension (Acute) Hypokalemia (Acute) Hyperglycemia (Acute) Biliary obstruction (Acute) 69 y/o admitted with a complaint of weakness and lethargy and found to have jaundice. 1. Obstructive jaundice of unclear etiology * CT of the abdomen and pelvis showed dilated intra-and extrahepatic ducts and dilated pancreatic duct as well. * Total bilirubin is 4.2 with AST of 185 and ALT of 308 with ALP of 606. * General surgery on board. For MRCP tomorrow. * 2. Chest pressure * Patient complains of vague occasional chest pressure but denies that is actually like chest pain. * IT does not worsen with exertion or relieved by rest. He has no cardiac history. He complains of mild rhinorrhea but denies any cough or shortness of breath. * Patient has other very vague symptoms which are not indicated of any clear pathology and had numerous complaints ranging from weakness to some abdominal pain though abdomen was soft on examination to lethargy and difficulty breathing though he denied being short of breath. There is no clear pathology apart from the obstructive jaundice and the vague chest pressure. * Initial troponin is negative. Will cycle troponins * Will consider stress test tomorrow if troponins are negative. * 3. Elevated blood pressure: * Blood pressure is 153/82 on admission. * Had come down to 138/94 at time of review. * Patient has no diagnosis of high blood pressure. * Put on IV hydralazine PRN. If blood pressure remains elevated, will consider starting oral blood pressure medication. * DVT prophylaxis: As per primary team. Thank you for the courtesy of the consult. We will continue to follow with you. Inpatient E&M: [id number] Subs Hosp L2
[2019-09-01] MEDS: 0.9% Normal Saline 1,000 ML 125 ML IV (20:56)
[2019-09-01] MEDS: 0.9% Saline Lock 10 ML Syringe IV (20:56)
[2019-09-02 03:01] VITALS: PULSE 74
--- NOTE | 2019-09-02 03:12 | NURSING ---
Verbal report given to Lorna Guillaume RN. She will resume care of patient.
[2019-09-02 04:25] VITALS: BP 122/62; PULSE 75; RESP 16; TEMP 36.8; O2SAT 100
[2019-09-02] MEDS: 0.9% Normal Saline 1,000 ML 125 ML IV (04:30)
[2019-09-02 05:07] LABS: HEPATITIS B SURFACE AG Negative (Negative); Hepatitis A IgM Antibody Negative (Negative); Hepatitis B Core AB IgM Negative (Negative)
--- NOTE | 2019-09-02 05:13 | NURSING ---
Handoff received from Sweta DIALLO. Nurse called in to help and report was then given to Gerda DIALLO.
[2019-09-02 05:54] LABS: Hep C Antibodies 0.1 s/co ratio (0.0-0.9)
--- NOTE | 2019-09-02 05:55 | EKG12_ITS ---
Test Reason : AM EKG Blood Pressure : / mmHG Vent. Rate : 073 BPM Atrial Rate : 073 BPM P-R Int : 150 ms QRS Dur : 100 ms QT Int : 406 ms P-R-T Axes : 040 045 025 degrees QTc Int : 447 ms Normal sinus rhythm Normal ECG When compared with ECG of 01-SEP-2019 11:34, MANUAL COMPARISON REQUIRED, DATA IS UNCONFIRMED Confirmed by FRITZ OBRIEN ([id number]), field map editor JOSE MARTIN VASQUEZ ([id number]) on 09/08/2019 1:57:20 PM Referred By: DR GALLO Confirmed By:FRITZ OBRIEN
[2019-09-02 06:09] VITALS: BP 124/74; PULSE 66; RESP 18; TEMP 37.3; O2SAT 99
[2019-09-02 06:51] VITALS: PULSE 63
[2019-09-02 07:27] LABS: Absolute Lymphocyte Count 0.69 X10^3/uL (0.83-4.51); Absolute Neutrophil Count 4.5 X10^3/uL (2.0-7.7); Basophil# 0.05 X10^3/uL; Basophil% 0.8 % (0-1); Eosinophil# 0.35 X10^3/uL; Eosinophils% 5.7 % (0-5); Hematocrit 32.9 % (40-54); Hemoglobin 11.4 g/dL (13.0-16.5); Lymphocyte # 0.69 X10^3/ul (4.0); Lymphocyte % 11.3 % (19-41); Mean Corp Hgb Conc 34.7 g/dL (32-36); Mean Corpuscular Hgb 33.8 pg (27.0-32.0); Mean Corpuscular Volume 97.6 fL (80-94); Mean Platelet Vol. 9.3 fl (6.2-12.0); Monocyte# 0.55 X10^3/uL; NRBC Flagged by Analyzer 0 % (0-5); Neutrophil # 4.47 X10^3/uL (2.7-7.7); Platelet Count 316 K/mm3 (150-450); RBC Distribution Width SD 50.3 fl (35.1-43.9); Red Blood Count 3.37 M/mm3 (4.6-6.2); White Blood Count 6.1 K/mm3 (4.4-11.0)
[2019-09-02 07:55] LABS: ALB/GLOB Ratio 0.6 RATIO (0.9-2.4); AST(SGOT) 181 U/L (15-37); Alanine Aminotransfer ALT/SGPT 274 U/L (16-61); Albumin, Serum 2.5 g/dL (3.2-5.0); Alkaline Phosphatase 575 U/L (45-117); Anion Gap 5 (5-15); BUN 9 mg/dL (7-18); BUN/Creat Ratio 13.5 RATIO (10-20); Calcium,Total 8.6 mg/dL (8.5-10.1); Chloride 107 mmol/L (98-107); Creatinine, Serum 0.67 mg/dL (0.70-1.30); EST Glomerular Filtration Rate 127 mL/min (>60); Est Glom Filt Rate - Afr Amer 153 mL/min (>60); Estimated Creatinine Clearance 69.35 ml/min; Globulin 4.1 g/dL (2.2-4.2); Glucose 101 mg/dL (74-106); Lipase 460 U/L (73-393); Potassium 3.8 mmol/L (3.5-5.1); Protein, Total 6.6 g/dL (6.4-8.2); Sodium Level 138 mmol/L (136-145)
--- NOTE | 2019-09-02 09:30 | PCM.PN.SRG ---
Patient Problems: Active and Suspected Problems Biliary obstruction (Acute) Subjective: Patient reports no changes overnight - Physical Exam Vitals/I&O's: Vital Signs Temp Pulse Resp BP Pulse Ox 99.1 F 63 18 124/74 H 99 09/02/19 06:09 09/02/19 06:51 09/02/19 06:09 09/02/19 06:09 09/02/19 06:09 Oxygen Flow Rate (L/min) 2 Oxygen Delivery Method Nasal Cannula Weight: 170 lb 6.4 oz Body Mass Index (BMI) 25.9 Finger Stick Blood Glucose 133 Intake and Output for Last 24 Hours 08/31/19 09/01/19 09/02/19 23:59 23:59 23:59 Intake Total 490 / 490 945.83 / 945.83 Balance 490 / 490 945.83 / 945.83 General: Alert, Oriented x3 Neck: No JVD Lungs: Normal air movement Abdomen: Soft, Non Tender, Non-Distended Laboratory Results 09/01/19 11:35: Sodium 139, Potassium 3.0 L, Chloride 104, Carbon Dioxide 29.0, Anion Gap 6, BUN 11, Creatinine 1.07, Estim Creat Clear Calc 64.81, Est GFR (MDRD) Af Amer 89, Est GFR (MDRD) Non-Af 73, BUN/Creatinine Ratio 10.3, Glucose 159 H, Calcium 9.0, Total Bilirubin 4.20 H, AST 185 H, ALT 308 H, Alkaline Phosphatase 606 H, Troponin I < 0.015, Total Protein 7.5, Albumin 3.0 L, Globulin 4.5 H, Albumin/Globulin Ratio 0.7 L 09/01/19 11:35: WBC 5.7, RBC 3.94 L, Hgb 13.1, Hct 38.9 L, MCV 98.7 H, MCH 33.2 H, MCHC 33.7, RDW Std Deviation 49.9 H, RDW Coeff of [place]ato 13.6, Plt Count 382, MPV 9.4, Immature Gran % (Auto) 0.300, Neut % (Auto) 74.5 H, Lymph % (Auto) 11.7 L, [place] % (Auto) 7.7, Eos % (Auto) 4.9, Baso % (Auto) 0.9, Absolute Neuts (auto) 4.3, Absolute Lymphs (auto) 0.67 L, Nucleated RBC % 0 09/01/19 11:35: PT 14.3, INR 1.2, APTT 29.1 09/01/19 11:35: Lipase 541 H 09/01/19 12:35: Hepatitis A IgM Ab Negative, Hep Bs Antigen Negative, Hep B Core IgM Ab Negative, Hepatitis C Ab (EIA) 0.1 09/01/19 18:26: Troponin I < 0.015 09/01/19 21:15: Troponin I < 0.015 09/02/19 07:11: WBC 6.1, RBC 3.37 L, Hgb 11.4 L, Hct 32.9 L, MCV 97.6 H, MCH 33.8 H, MCHC 34.7, RDW Std Deviation 50.3 H, RDW Coeff of [place] 14.0, Plt Count 316, MPV 9.3, Immature Gran % (Auto) 0.200, Neut % (Auto) 73.0 H, Lymph % (Auto) 11.3 L, [place] % (Auto) 9.0, Eos % (Auto) 5.7 H, Baso % (Auto) 0.8, Absolute Neuts (auto) 4.5, Absolute Lymphs (auto) 0.69 L, Nucleated RBC % 0 09/02/19 07:11: Sodium 138, Potassium 3.8, Chloride 107, Carbon Dioxide 26.0, Anion Gap 5, BUN 9, Creatinine 0.67 L, Estim Creat Clear Calc 69.35, Est GFR (MDRD) Af Amer 153, Est GFR (MDRD) Non-Af 127, BUN/Creatinine Ratio 13.5, Glucose 101, Calcium 8.6, Total Bilirubin 5.80 H, AST 181 H, ALT 274 H, Alkaline Phosphatase 575 H, Total Protein 6.6, Albumin 2.5 L, Globulin 4.1, Albumin/Globulin Ratio 0.6 L, Lipase 460 H 09/02/19 07:11: Carcinoembryonic Ag Pending, CA 19-9 Serial Monitor Pending 09/02/19 07:11: CA 19-9 Serial Monitor Pending Current Medications Sodium Chloride () 1,000 mls @ 125 mls/hr IV .Q8H BRIGITTE Last Admin: 09/02/19 04:30 Dose: 125 mls/hr Documented by: Sodium Chloride () 250 mls @ 15 mls/hr IV .[id number] PRN PRN Reason: Saline Flush Sodium Chloride () 250 mls @ 15 mls/hr IV .[id number] PRN PRN Reason: Additional IVPB Infusion Morphine Sulfate () 2 - 4 mg IV Q2H PRN PRN PRN Reason: Pain Score 4-10/10 Ondansetron HCl (Zofran) 4 mg IV Q6H PRN PRN PRN Reason: NAUSEA Sodium Chloride () 10 - 40 ml IV UD PRN PRN Reason: SALINE FLUSH Last Admin: 09/01/19 20:56 Dose: 10 ml Documented by: Medical Necessity - Tobacco Use Smoking Status: Never smoker Assessment/Plan All Active Problems Vision changes (Acute) Stroke-like symptoms (Acute) TIA (transient ischemic attack) (Acute) Elevated BP without diagnosis of hypertension (Acute) Hypokalemia (Acute) Hyperglycemia (Acute) Biliary obstruction (Acute) 69-year-old male with probable pancreatic mass 1. The patient had obstructive jaundice and a CT scan showed dilated bile ducts. Patient had MRCP yesterday evening which shows a probable pancreatic mass. CA-19-9 and CEA were checked this morning and are pending. I have discussed transfer to [facility] to the pancreatic surgeon. The pancreatic surgeon did accept. I discussed this with the patient in detail. I informed him of the mass and I informed that it was likely cancerous. I discussed transfer with him and he was agreeable. Navneet Rodriguez MD Pager: [facility] [address] [place] [address], [address] [place] [address] Office:
[2019-09-02 10:02] VITALS: BP 153/98; PULSE 82; RESP 16; TEMP 36.5; O2SAT 95
--- NOTE | 2019-09-02 10:05 | PN_ITS ---
Subjective: And examined. He said he felt much better today. He denied any fever, chills, nausea vomiting, abdominal pain or diarrhea. Review of systems otherwise negative. He has been managed for obstructive jaundice and he was due to have stress test today on account of vague complaints of chest pressure though he denied it was really pain. Review of symptoms otherwise negative. However per discussion with general surgery, his MRCP of the abdomen today showed a pancreatic mass so he is being transferred to [facility]. Vitals/I&O's: Vital Signs Temp Pulse Resp BP Pulse Ox 97.7 F L 82 16 153/98 H 95 09/02/19 10:02 09/02/19 10:02 09/02/19 10:02 09/02/19 10:02 09/02/19 10:02 Oxygen Flow Rate (L/min) 2 Oxygen Delivery Method Room Air Weight: 170 lb 6.4 oz Body Mass Index (BMI) 25.9 Finger Stick Blood Glucose 133 Intake and Output for Last 24 Hours 08/31/19 09/01/19 09/02/19 23:59 23:59 23:59 Intake Total 490 / 490 945.83 / 945.83 Balance 490 / 490 945.83 / 945.83 General: Alert, Oriented x3, Cooperative, No apparent distress HEENT: Atraumatic, PERRLA, EOMI, Normocephalic, - - jaundiced sclera Oral: Dry Mucosa Neck: Supple, No JVD, Negative Carotid Bruits Lungs: Clear to auscultation, Normal air movement, No rhonchi, No wheeze, No rales Cardiovascular: Regular rate, Regular Rhythm, Normal S1, Normal S2, No murmurs Abdomen: Bowel Sounds Present, Soft, Non Tender, Non-Distended, No Hepato- splenomegaly Extremities: No clubbing, No cyanosis, No edema, Capillary Refill Less than 3 Seconds Skin: No rashes, No breakdown, - - has icteric skin Musculoskeletal: No Tenderness to Palpation of Joints or Extremities Lymphatic: No Cervical, Supraclavicular, or Inguinal Adenopathy Neurological: Cranial nerves II-XII grossly intact, Neuro grossly intact, Motor Exam 5/5 strength throughout Psych/Mental Status: Normal Affect, Appropriate, Alert and oriented to time, place, person, mood and affect Laboratory Results 09/01/19 11:35: Sodium 139, Potassium 3.0 L, Chloride 104, Carbon Dioxide 29.0, Anion Gap 6, BUN 11, Creatinine 1.07, Estim Creat Clear Calc 64.81, Est GFR (MDRD) Af Amer 89, Est GFR (MDRD) Non-Af 73, BUN/Creatinine Ratio 10.3, Glucose 159 H, Calcium 9.0, Total Bilirubin 4.20 H, AST 185 H, ALT 308 H, Alkaline Phosphatase 606 H, Troponin I < 0.015, Total Protein 7.5, Albumin 3.0 L, Globulin 4.5 H, Albumin/Globulin Ratio 0.7 L 09/01/19 11:35: WBC 5.7, RBC 3.94 L, Hgb 13.1, Hct 38.9 L, MCV 98.7 H, MCH 33.2 H, MCHC 33.7, RDW Std Deviation 49.9 H, RDW Coeff of [place]ato 13.6, Plt Count 382, MPV 9.4, Immature Gran % (Auto) 0.300, Neut % (Auto) 74.5 H, Lymph % (Auto) 11.7 L, [place] % (Auto) 7.7, Eos % (Auto) 4.9, Baso % (Auto) 0.9, Absolute Neuts (auto) 4.3, Absolute Lymphs (auto) 0.67 L, Nucleated RBC % 0 09/01/19 11:35: PT 14.3, INR 1.2, APTT 29.1 09/01/19 11:35: Lipase 541 H 09/01/19 12:35: Hepatitis A IgM Ab Negative, Hep Bs Antigen Negative, Hep B Core IgM Ab Negative, Hepatitis C Ab (EIA) 0.1 09/01/19 18:26: Troponin I < 0.015 09/01/19 21:15: Troponin I < 0.015 09/02/19 07:11: WBC 6.1, RBC 3.37 L, Hgb 11.4 L, Hct 32.9 L, MCV 97.6 H, MCH 33.8 H, MCHC 34.7, RDW Std Deviation 50.3 H, RDW Coeff of [place] 14.0, Plt Count 316, MPV 9.3, Immature Gran % (Auto) 0.200, Neut % (Auto) 73.0 H, Lymph % (Auto) 11.3 L, [place] % (Auto) 9.0, Eos % (Auto) 5.7 H, Baso % (Auto) 0.8, Absolute Neuts (auto) 4.5, Absolute Lymphs (auto) 0.69 L, Nucleated RBC % 0 09/02/19 07:11: Sodium 138, Potassium 3.8, Chloride 107, Carbon Dioxide 26.0, Anion Gap 5, BUN 9, Creatinine 0.67 L, Estim Creat Clear Calc 69.35, Est GFR (MDRD) Af Amer 153, Est GFR (MDRD) Non-Af 127, BUN/Creatinine Ratio 13.5, Gluco se 101, Calcium 8.6, Total Bilirubin 5.80 H, AST 181 H, ALT 274 H, Alkaline Phosphatase 575 H, Total Protein 6.6, Albumin 2.5 L, Globulin 4.1, Albumin/Globulin Ratio 0.6 L, Lipase 460 H 09/02/19 07:11: Carcinoembryonic Ag Pending, CA 19-9 Serial Monitor Pending 09/02/19 07:11: CA 19-9 Serial Monitor Pending Diagnostic Data Chest X-Ray 09/01/19 11:55 IMPRESSION: No acute process Electronically Signed: Fili Hines MD at 12:07 EDT , Service support , Abdomen/Pelvis CT 09/01/19 12:20 IMPRESSION: Status post cholecystectomy. Dilatation of the intra and extrahepatic biliary ducts as well as the pancreatic duct. The pancreas is diffusely atrophied. Electronically Signed: Keenan Littlejohn, at 14:49 EDT , Service support , MRCP 09/01/19 16:48 IMPRESSION: Biliary and pancreatic ductal obstruction. Suspect pancreatic head mass, evaluation limited due to lack of contrast and due to motion artifact. Dynamic enhanced pancreatic mass protocol MRI or CT of the pancreas versus endoscopic ultrasound recommended for further evaluation. at 0034 Reported and signed by: Savannah Matta MD Electronically Signed: Savannah Matta MD at 0:33 EDT Tel , Service support , Current Medications Sodium Chloride () 1,000 mls @ 125 mls/hr IV .Q8H BRIGITTE Last Admin: 09/02/19 04:30 Dose: 125 mls/hr Documented by: Sodium Chloride () 250 mls @ 15 mls/hr IV .[id number] PRN PRN Reason: Saline Flush Sodium Chloride () 250 mls @ 15 mls/hr IV .[id number] PRN PRN Reason: Additional IVPB Infusion Morphine Sulfate () 2 - 4 mg IV Q2H PRN PRN PRN Reason: Pain Score 4-10/10 Ondansetron HCl (Zofran) 4 mg IV Q6H PRN PRN PRN Reason: NAUSEA Sodium Chloride () 10 - 40 ml IV UD PRN PRN Reason: SALINE FLUSH Last Admin: 09/01/19 20:56 Dose: 10 ml Documented by: STROKE Vital Signs/Narrative: Vital Signs Temp Pulse Resp BP Pulse Ox 09/02/19 10:02 97.7 F L 82 16 153/98 H 95 09/02/19 06:51 63 09/02/19 06:09 99.1 F 66 18 124/74 H 99 Medical Necessity - Tobacco Use Smoking Status: Never smoker Assessment/Plan All Active Problems Vision changes (Acute) Stroke-like symptoms (Acute) TIA (transient ischemic attack) (Acute) Elevated BP without diagnosis of hypertension (Acute) Hypokalemia (Acute) Hyperglycemia (Acute) Biliary obstruction (Acute) 69 y/o admitted with a complaint of weakness and lethargy and found to have jaundice. 1. Obstructive jaundice * Due to mass at the head of the pancreas * CT of the abdomen and pelvis showed dilated intra-and extrahepatic ducts and dilated pancreatic duct as well. * MRCP today showed suspected pancreatic head mass with evaluation limited due to contrast and biliary and pancreatic ductal obstruction * Bilirubin today is up to 5.8 with AST of 181 and ALT of 274 with ALP of 575 * Per discussion with general surgery, for transfer to [facility] today * * 2. Chest pressure * Patient complains of vague occasional chest pressure but denies that is actually like chest pain. * IT does not worsen with exertion or relieved by rest. He has no cardiac history. He complains of mild rhinorrhea but denies any cough or shortness of breath. * tropnins x 3 were negative * EKG showed no acute ST changes. * Due for stress test today but this was canceled as patient has been transferred to [facility] * 3. Elevated blood pressure: * Blood pressure went down to the 120s systolic but is up to 153/98 today. * Has no diagnosis of hypertension. * Will start patient on p.o. amlodipine 10 mg daily. * IV hydralazine 10mg prn * DVT prophylaxis: As per primary team. Thank you for the courtesy of the consult. We will continue to follow with you. Disposition: for transfer to [facility] today Inpatient E&M: [id number] Subs Hosp L3
--- NOTE | 2019-09-02 10:12 | PHA.DC.MR ---
Pharmacy Service has performed discharge medication reconciliation for this patient. The patient's discharge medication list was reviewed for discrepancies and discrepancies were resolved. Pt being transferred, inpatient medications also reviewed. Home Medications NK 06/18/19
--- NOTE | 2019-09-02 10:17 | NURSING ---
called report to kalen at [facility]. patient to be transfered to room 5210.
[2019-09-02] MEDS: Morphine 2 MG/ML Syringe IV (10:59)
[2019-09-02] MEDS: 0.9% Saline Lock 10 ML Syringe IV (11:00)
[2019-09-05 00:47] LABS: Carbohydrate Ag 19-9 2261 504 U/mL (0-35)
== END 2019-09-02 11:08 | disposition short-term general hospital (02) | DRG 446 ==
LOC: ED 16:28 → PCU 18:08
PROVIDERS: Student in an Organized Health Care Education/Training Program; Admitting Provider Surgery; Emergency Provider Emergency Medicine; PCP Internal Medicine; Visit Provider Surgery
DX: K83.1 Obstruction of bile duct (principal); K86.89 Other specified diseases of pancreas; R07.89 Other chest pain; R03.0 Elevated blood-pressure reading, without diagnosis of hypertension; Z90.49 Acquired absence of other specified parts of digestive tract
CPT/HCPCS: 36415; 71045; 74177; 74181; 80053; 80074; 82378; 83690; 84484; 85025; 85610; 85730; 86301; 93005; 96360; 96361; 99285; J7030; Q9967; A4216

== ENCOUNTER 2019-10-23 08:42 | Day surgery (SDC) | payer MEDICARE, SELFPAY ==
--- NOTE | 2019-10-17 01:00 | HP_ITS ---
Intake Intake Visit Reasons: PORT PLACEMENT Chief Complaint: Pancreas cancer Tongue Trimmer Required: No Is patient in pain?: No Allergies No Known Allergies Allergy (Verified 10/17/19 10:17) Medications Berberine Xts 2 tab PO BID 10/16/19 [History Confirmed 10/17/19] Armando Med 2 tab PO DAILY 10/16/19 [History Confirmed 10/17/19] Dr Trejo Super Food Plus 2 tab PO DAILY 10/16/19 [History Confirmed 10/17/19] Magnesium Oxide [Magnesium] 500 mg PO DAILY 10/16/19 [History Confirmed 10/17/19] [place] 3/Dha/Epa/Other Om3/D3 [[place]-3 + Vitamin D3 Liquid] 200 ml PO BID 10/16/19 [History Confirmed 10/17/19] Ondansetron [Zofran] 8 mg PO Q8H PRN PRN 10/16/19 [History Confirmed 10/17/19] Prochlorperazine Maleate [Compazine] 10 mg PO Q6H PRN 10/16/19 [History Confirmed 10/17/19] Super C Plus 1 tab PO BID 10/16/19 [History Confirmed 10/17/19] PFSH Medical History (Updated 10/17/19 @ 13:[address] Navneet Rodriguez MD) Adenocarcinoma of pancreas (Acute) Carotid artery stenosis (Acute) Hearing loss (Acute) Herpes zoster (Acute) PIN IN LEFT ARM (Acute) Surgical History History of cholecystectomy (Acute) Social History (Updated 10/17/19 @ 13:[address] Navneet Rodriguez MD) Smoking Status: Never smoker HPI HPI HPI: MOUSTAPHA VASQUEZ, is a 69 M who presents to the office today for HPI HPI Surgical H&P: Yes HPI: MOUSTAPHA VASQUEZ, is a 69 M who presents to the office today for Port placement. Patient was found to have pancreatic cancer and is receiving chemotherapy. ROS General General: No weight change or fatigue Cardio Cardiovascular: No murmur, pacemaker, heart disease, atrial fibrillation, high blood pressure, heart attack, heart stent, palpitations, shortness of breat with exertion or chest pain Psych Psychiatric: No depression or anxiety Resp Respiratory: No shortness of breath, No sleep apnea, No cough, No COPD, No asthma, No emphysema, No wheezing Gastro Gastrointestinal: No abdominal pain, No nausea or vomiting, No diarrhea, No constipation, No blood in stool, No acid reflux, No hemorrhoids, No ulcers, No gallbladder problem, No black,tarry stools Yasir Hematologic: No blood thinners Exam Const General: cooperative Orientation: alert, oriented x3 Resp Effort & Inspection: normal respiratory effort Auscultation: clear to auscultation bilaterally Cardio Rate: regular rate Rhythm: regular rhythm Heart Sounds: no murmurs GI Inspection: non-distended Palpation: soft, nontender Assessment & Plan Problems 1. Malignant neoplasm of head of pancreas C25.0 2. Encounter for adjustment and management of vascular access device Z45.2 Plan Patient requires port for chemotherapy. I discussed port placement with the patient in detail as well as the risks including but not limited to bleeding, infection, pneumothorax, line infection, DVT. Patient agrees to proceed with port placement. We discussed the current risks associated with COVID-19. While it is understood that there is a community spread of COVID-19, the risk of huan COVID-19 while at [facility] ([facility]) is very low; however, the risk cannot be completely mitigated because of the community spread of the disease. We discussed in detail the risk of exposure to and/or potential harm posed by the COVID-19 virus with having a surgery/procedure at this time versus the risk of delaying the surgery/procedure. It is not possible to know either the risk of delaying the surgery or procedure or chance of getting an infection with perfect accuracy, but a joint decision was made to proceed at this time with the scheduled surgery/procedure as indicated on the consent form. Patient was notified that we will need to comply with any screening or testing [facility] wishes to perform or that surgery may be delayed for any positive results. Navneet Rodriguez MD Pager: [facility] [address] [place] [address], [address] [place] [address] Office: Coding Level of Care Code Off vis,est,level 3 Diagnoses Malignant neoplasm of head of pancreas C25.0 ??Pancreatic malignancy location: head of pancreas Encounter for adjustment and management of vascular access device Z45.2 10/17/19 1300 <Electronically signed by Navneet mortensen MD> Date _ Navneet Rodriguez MD I have re-examined the patient. There are no clinical changes since date of exam.
[2019-10-17 10:17] VITALS: BMI 24.5
[2019-10-22 09:57] VITALS: BMI 24.1
[2019-10-23] VITALS (7 sets, daily range): BP systolic 118–144; BP diastolic 70–86; PULSE 67–77; RESP 16; TEMP 36.4–36.8; O2SAT 97–100; BMI 24.8
[2019-10-23] MEDS: Lactated Ringers 1,000 ML 100 ML IV (09:08)
[2019-10-23] MEDS: Cefazolin 2 GM in 0.9% Normal Saline 100 ML IV (10:12)
[2019-10-23] MEDS: Bupiv/Epi 0.5% Mpf 30 ML Vial (10:22)
--- NOTE | 2019-10-23 10:51 | PCM.DC.POR ---
Discharge Diet: No Restrictions - Pain medication may cause nausea. You should typically eat light foods as you take your pain medication. Discharge Activity: Return to Normal Activity, May Shower - with your bandage in place in 1-2 days after surgery. DO NOT SHOWER WHEN YOUR PORT IS ACCESSED. Call your doctor if your incision/area has: Continuous Slow Oozing, Sudden Increased Bleeding, Increased Pain/ Swelling, Increased Redness Call your doctor if you observe: Fever of 101 or Higher Remove Dressing in (days):: 3 - When you remove the bandage, leave the steri-strips intact until they fall off. Allergies/Adverse Reactions: Allergies No Known Allergies Allergy (Verified 10/23/19 09:02) Medications to take at Discharge Armando Med 2 tab PO DAILY 10/16/19 Dr Trejo Super Food Plus 2 packet PO DAILY 10/16/19 Magnesium Oxide [Magnesium] 500 mg PO DAILY 10/16/19 Ondansetron [Zofran] 8 mg PO Q8H PRN PRN 10/16/19 Super C Plus 1 tab PO BID 10/16/19 Cholecalciferol (Vitamin D3) [Vitamin D3] 3 drp PO DAILY 10/20/19 Digestive Plus 1 packet PO DAILY 10/22/19 Lidocaine/Prilocaine [Lidocaine-Prilocaine Cream] 1 applicatio TP DAILY PRN PRN 30 Days #1 tube 10/22/19 Orders to be completed after discharge: CORONAVIRUS 19, JENNIFER SCREEN Time Frame: 10/17/19, Facility: [facility], Location: Laboratory Primary Care Physician: Anjelica Mendoza MD [Primary Care Provider] - Test Results: Test results from this visit will be discussed in further detail at your follow-up appointment, if applicable. Please Follow Up With: Navneet Rodriguez MD When: Call to schedule 2 week follow up appt [phone]
--- NOTE | 2019-10-23 10:55 | RAD_ITS ---
STUDY: X-RAY CHEST REASON FOR EXAM: Male, 69 years old. POST PORT PLACEMENT TECHNIQUE: Single AP portable view of the chest. COMPARISON: Comparison is made with prior study dated September 01, 2019. FINDINGS: A right-sided anastasia catheter has been placed. The tip is at the junction of the superior vena cava and right atrium. Stable mild elevation of the right hemidiaphragm. No acute abnormality is seen. There is no demonstrated pleural abnormality. Normal size heart. Normal mediastinum and harvinder. Normal visualized pulmonary arteries. Normal visualized aortic arch and descending thoracic aorta. There are diffuse degenerative changes of the visualized thoracic spine. Normal visualized ribs, clavicles, and shoulders. There is no demonstrated abnormality of the visualized soft tissue structures of the upper abdomen. RAD/CXR for Line Placement IMPRESSION: The tip of the right anastasia catheter is at the junction of the superior vena cava and right atrium. Electronically Signed: Keenan Littlejohn, at 11:11 EDT , Service support ,
--- NOTE | 2019-10-23 12:42 | OP.PCM_ITS ---
Problem List (1) Pancreas cancer Status: Acute Qualifiers: Pancreatic malignancy location: unspecified Qualified Code(s): C25.9 - Malignant neoplasm of pancreas, unspecified Report of Operation Date of Procedure: 10/23/19 Pre-Operative Diagnosis: Pancreatic cancer need for vascular access port Post-Operative Diagnosis: Same Surgery/Procedure Performed:: Ultrasound and fluoroscopy guided right IJ chest port placement Description of Procedure: After obtaining informed consent patient was brought back to the operating room MAC anesthesia was induced and the right chest and neck were prepped in normal sterile fashion. Ultrasound was used to evaluate both IJs and the right IJ was selected. Next, using a needle, the right IJ was accessed and a guidewire was passed on into the superior vena cava under fluoroscopy guidance. A small incision was made over the puncture site and the dilator introducer was placed over the guidewire. Next this was capped and the pocket was made for the port. 1% lidocaine with epinephrine was injected in the proposed port site. An incision was made with scalpel. Electrocautery was used to make a pocket under the skin and subcutaneous tissue. Hemostasis was obtained. Next, the catheter was tunneled up to the neck incision site and placed through the introducer. The peel-away introducer was removed and the position of the catheter was confirmed on fluoroscopy. Next, the catheter was trimmed and attached to the port with the locking device. Interrupted 2-0 Vicryl sutures were used to anchor the port to the chest wall and then the port was placed inside the pocket. The pocket was then flushed with saline and the port irrigated with saline. There was good blood return and the port flushed easily. Next, heparin was injected into the port. The skin was closed with subcutaneous interrupted 3-0 Vicryl sutures. A single 3-0 Vicryl sutures placed under the skin at the neck incision site. Steri-Strips were placed as well as op sites. Patient tolerated procedure well, was taken to PACU in stable condition. Chest x-ray will be obtained. Grafts/Implants Used: 8 [place] PowerPort - Admit VTE Documentation VTE Mechan Device Prophylaxis: SCD's
== END 2019-10-23 11:56 | disposition home or self-care (01) ==
LOC: SDC 08:47 → AC 08:48
PROVIDERS: Anesthesiology; PCP Internal Medicine; Referring Provider Internal Medicine; Visit Provider Surgery
PROC: (CPT 36561; principal; 2019-10-23 10:15)
DX: Z45.2 Encounter for adjustment and management of vascular access device (principal); C25.0 Malignant neoplasm of head of pancreas; Z11.59 Encounter for screening for other viral diseases
CPT/HCPCS: 00532; 36561; 71045; 77001; 87635; G2023; J7120; C1788; U0003

== ENCOUNTER 2020-05-17 15:37 | Emergency (ER) | payer MEDICARE, SELFPAY ==
[2020-01-20 14:49] VITALS: BMI 24.7
[2020-05-17 15:39] VITALS: BP 132/56; PULSE 98; RESP 16; TEMP 36.6; O2SAT 99; BMI 22.0
--- NOTE | 2020-05-17 16:13 | CT_ITS ---
STUDY: CT ABDOMEN AND PELVIS WITH CONTRAST REASON FOR EXAM: Male, 69 years old. WEAKNESS,UNABLE TO EAT, BACK PAIN RADIATION DOSAGE (If Supplied By Facility): CTDIvol = ( 10.95 ) mGy, DLP = ( 498.44 ) mGycm TECHNIQUE: Transaxial images were obtained from the dome of the diaphragm to the symphysis pubis with oral contrast. 100 ML ISOVUE 370 was administered. Sagittal and coronal images were reconstructed. Individualized dose optimization techniques were used for this CT. COMPARISON: September 01, 2019 FINDINGS: There is lower lung atelectasis. There are coronary artery calcifications. There is mild pneumobilia. There is improvement of previously noted biliary dilatation. There is a 5.6 x 5.3 cm lobular fluid collection adjacent to the inferior vena cava, series 2 images 21/140 through 28/140. The gallbladder is not seen consistent with cholecystectomy. Normal spleen. There is diffuse atrophy of the pancreas. There is resection of the pancreatic head. Normal bilateral adrenal glands. Normal right kidney. Normal left kidney. Postoperative changes with resection of the distal stomach. Normal small intestine. There are multiple colonic diverticula consistent with diverticulosis. The appendix is visualized and appears normal. There is diffuse atherosclerotic calcification of the abdominal aorta, without a demonstrated aneurysm. Normal inferior vena cava. Normal retroperitoneum. Normal urinary bladder. There is subcutaneous air along the anterior abdominal wall. There is degenerative change of the spine. CT/Abdomen/Pelvis WITH Contrast IMPRESSION: Postoperative change. Improvement of previously noted biliary dilatation. There is mild pneumobilia. Fluid collection in the upper abdomen with possible seroma or biloma. Subcutaneous air of the abdominal wall could be related to recent postoperative change or infection. Electronically Signed: Armando Bingham MD at 19:30 EST , Service support ,
--- NOTE | 2020-05-17 16:13 | EKG12_ITS ---
Test Reason : ILLNESS Blood Pressure : / mmHG Vent. Rate : 083 BPM Atrial Rate : 083 BPM P-R Int : 144 ms QRS Dur : 106 ms QT Int : 406 ms P-R-T Axes : 043 042 011 degrees QTc Int : 477 ms Normal sinus rhythm Nonspecific ST abnormality Abnormal ECG Confirmed by ZACH AGUERO, RICA ([id number]), editor house organ ОЛЕГ GREGORY ([id number]) on 05/19/2020 11:14:21 AM Referred By: MARILUZ Confirmed By:RICA SERRANO MD
--- NOTE | 2020-05-17 16:14 | ED.VIS.GEN ---
History of Present Illness Chief Complaint: Weakness Informant: Patient Onset: Weeks Context: Gradual Onset Current Severity: Moderate Maximum Severity: Moderate Narrative: Patient presents secondary to generalized weakness. He has a history of pancreatic cancer. 3 weeks ago he had surgery at [facility] in [place]. Prior to his surgery he underwent chemotherapy and radiation here locally. Patient states that he remained in the hospital for 1 week after his surgery. Has been home for the past 1 week. He states he has had increasing weakness with very poor appetite. He is able to keep food and drink down, but really has no interest in eating. He states he has normal bowel movements and normal urine output. He has noted that he has back pain especially when he stands or walks across his lower back. He received a phone call from his cancer doctors in [place] today who advised him that if he was still feeling this way he should go to the emergency room. - Past Medical History (1) Pancreas cancer Status: Chronic (2) TIA (transient ischemic attack) Status: Chronic Past Medical History - Allergies and Home Meds Allergies/Adverse Reactions: Allergies No Known Allergies Allergy (Verified 05/17/20 15:39) Primary Care Physician: Anjelica Mendoza MD [Primary Care Provider] - Prior records reviewed: Yes Surgical History: - - Cholecystectomy, left upper extremity surgery status post trauma with hardware. Smoking Status: Never smoker - Family History Maternal Family History: Family History (Last Reviewed 01/19/20 @ 09:50 by Corina Powell) Son No problems noted. Sister Diabetes Mother CAD (coronary artery disease) Grandmother Breast cancer Family History: Reports: High Cholesterol, Heart Disease, Hypertension, - - Patient notes that his mother at age 90, had a CABG in her 80s. Paternal Family History: Family History (Last Reviewed 01/19/20 @ 09:50 by Corina Powell) Son No problems noted. Sister Diabetes Mother CAD (coronary artery disease) Grandmother Breast cancer Family History: Reports: - - Patient notes that his father in his 90s, no significant history, was healthy, no heart disease, diabetes, cancer. Review of Systems General: Denies: Chills, Fever Eyes: Denies: Visual changes - bilaterally ENT: Denies: Bilateral ear pain Cardiovascular: Denies: Chest pain Respiratory: Denies: Dyspnea, Cough Gastrointestinal: Reports: Abdominal pain. Denies: Vomiting Genitourinary: Denies: Dysuria Musculoskeletal: Denies: Swelling, Extremity Pain Skin: Denies: Rash Neurological: Reports: Weakness - Generalized weakness Allergy: Denies: Uticaria Physical Exam Vital Signs/Narrative: Vital Signs Temp Pulse Resp BP Pulse Ox 05/17/20 15:39 98 F 98 16 132/56 H 99 Inital Vital Signs reviewed: Yes General: Well nourished, Well developed Head: Normocephalic ENT: Moist mucous membranes Neck: Supple Cardiovascular: Regular rate, Regular rhythm Respiratory: No distress, CTA bilaterally Abdomen: Soft, Nontender, Hypoactive bowel sounds Extremities: Nontender, No edema Skin: - - Healing abdominal incisions. No sign of infection. Neurological: Alert, Oriented x3 Psychological: Normal affect Diagnostic/Tx/Re-eval Impressions Abdomen/Pelvis CT 05/17/20 16:13 IMPRESSION: Postoperative change. Improvement of previously noted biliary dilatation. There is mild pneumobilia. Fluid collection in the upper abdomen with possible seroma or biloma. Subcutaneous air of the abdominal wall could be related to recent postoperative change or infection. Electronically Signed: Armando Bingham MD at 19:30 EST , Service support , 05/17/20 16:13 Abdomen/Pelvis WITH Contrast [CT] Stat Laboratory Results 05/17/20 05/17/20 05/17/20 16:23 16:23 17:10 WBC 5.9 RBC 3.82 L Hgb 12.2 L Hct 36.0 L MCV 94.2 H MCH 31.9 MCHC 33.9 RDW Std Deviation 45.5 H RDW Coeff of [place] 13.2 Plt Count 357 MPV 8.2 Immature Gran % (Auto) 0.300 Neut % (Auto) 77.9 H Lymph % (Auto) 7.4 L [place] % (Auto) 10.2 H Eos % (Auto) 3.9 Baso % (Auto) 0.3 Absolute Neuts (auto) 4.6 Absolute Lymphs (auto) 0.44 L Nucleated RBC % 0 Differential Comment Platelet Estimate ADEQUATE RBC Morphology NORM C+C Sodium 138 Potassium 2.7 L* Chloride 99 Carbon Dioxide 29.0 Anion Gap 10 BUN 10 Creatinine 0.94 Estim Creat Clear Calc 70.94 Est GFR (MDRD) Af Amer 102 Est GFR (MDRD) Non-Af 85 BUN/Creatinine Ratio 10.6 Glucose 98 Calcium 9.0 Total Bilirubin 0.60 Direct Bilirubin 0.20 AST 36 ALT 58 Alkaline Phosphatase 127 H Total Protein 7.3 Albumin 3.0 L Globulin 4.3 H Lipase 26 L Urine Color Yellow Urine Clarity Clear Urine pH 7.0 Ur Specific [place] 1.005 Urine Protein Negative Urine Glucose (UA) Normal Urine Ketones 50 H Urine Occult Blood 25 H Urine Nitrite Negative Urine Bilirubin Negative Urine Urobilinogen Normal Ur Leukocyte Esterase Negative Urine RBC 0 SEEN Urine WBC 0 SEEN Ur Squamous Epith Cells 0 SEEN Urine Bacteria 0 SEEN Urine Mucus 0 SEEN - EKG Initial EKG Interpretation: Sinus Rhythm - Sinus 83 with no acute ischemia. - Medical Decision Making Patient was given fentanyl and Zofran for pain. He was given IV fluids. Upon completion of his lab work he is given p.o. replacement for potassium. Test results are discussed with him. I was able to have Dr. Mantilla review his CT images and look at this reported fluid collection. It does not appear to be concerning for infection, more consistent with a seroma. I did speak with Dr. Munroe and he is willing to follow patient up for repeat potassium levels. Patient has a meeting with his doctors in [place] on Sunday via telephone. He believes they will be ordering blood work at that time as well. Patient be given prescription for potassium replacement. ED Disposition - Plan for ED Patient: Disposition: Home or Assisted Living Diagnosis: Hypokalemia Instructions: ED Hypokalemia Prescriptions: Potassium Chl Soln 20 meq PO BID #5 days Transmission Status: Pending to [facility] Referrals: Anjelica Mendoza MD [Primary Care Provider] - 5-7 Days
[2020-05-17] MEDS: 0.9% Normal Saline 1,000 ML 150 ML IV (16:33)
[2020-05-17] MEDS: fentaNYL 100 MCG/2 ML Ampul 25 MCG IV ×2 (16:33→20:07)
[2020-05-17] MEDS: Ondansetron 4 MG/2 ML Vial IV (16:33)
[2020-05-17 16:35] LABS: Absolute Lymphocyte Count 0.44 X10^3/uL (0.83-4.51); Absolute Neutrophil Count 4.6 X10^3/uL (2.0-7.7); Basophil# 0.02 X10^3/uL; Basophil% 0.3 % (0-1); Eosinophil# 0.23 X10^3/uL; Eosinophils% 3.9 % (0-5); Hemoglobin 12.2 g/dL (13.0-16.5); Lymphocyte # 0.44 X10^3/ul (4.0); Lymphocyte % 7.4 % (19-41); Mean Corp Hgb Conc 33.9 g/dL (32-36); Mean Corpuscular Hgb 31.9 pg (27.0-32.0); Mean Corpuscular Volume 94.2 fL (80-94); Mean Platelet Vol. 8.2 fl (6.2-12.0); Monocyte% 10.2 % (0-10); NRBC Flagged by Analyzer 0 % (0-5); Neutrophil % 77.9 % (47-70); POSITIVE DIFFERENTIAL YES; Platelet Count 357 K/mm3 (150-450); RBC Distribution Width CV 13.2 % (11.6-14.6); RBC Distribution Width SD 45.5 fl (35.1-43.9); Red Blood Count 3.82 M/mm3 (4.6-6.2); White Blood Count 5.9 K/mm3 (4.4-11.0)
[2020-05-17 16:40] LABS: Differential Indicated SCAN CRITERIA MET
[2020-05-17 17:03] LABS: AST(SGOT) 36 U/L (15-37); Alanine Aminotransfer ALT/SGPT 58 U/L (16-61); Alkaline Phosphatase 127 U/L (45-117); Anion Gap 10 (5-15); BUN 10 mg/dL (7-18); BUN/Creat Ratio 10.6 RATIO (10-20); Chloride 99 mmol/L (98-107); Creatinine, Serum 0.94 mg/dL (0.70-1.30); EST Glomerular Filtration Rate 85 mL/min (>60); Est Glom Filt Rate - Afr Amer 102 mL/min (>60); Estimated Creatinine Clearance 70.94 ml/min; Globulin 4.3 g/dL (2.2-4.2); Glucose 98 mg/dL (74-106); Lipase 26 U/L (73-393); Potassium 2.7 mmol/L (3.5-5.1); Protein, Total 7.3 g/dL (6.4-8.2); Sodium Level 138 mmol/L (136-145)
[2020-05-17 17:17] LABS: Bacteria 0 SEEN /hpf (None Seen); Mucous, Urine 0 SEEN /hpf (<or=2+); Red Blood Cells-Urine 0 SEEN /hpf (0-5); Squamous Epithelial Cells - UA 0 SEEN /hpf (0-5)
[2020-05-17 17:18] LABS: Color, Urine Yellow (Yellow); Glucose, Dipstick Normal (Normal); Ketone-Dipstick 50 mg/dl (Negative); Leukocyte Esterase-Dipstick Negative /ul (Negative); Nitrite-Dipstick Negative (Negative); Occult Blood-Urine 25 /ul (Negative); Protein-Dipstick Negative (Negative); Specific Gravity, Urine 1.005 (1.002-1.030); Urine Bilirubin Dipstick Negative (Negative); Urine Clarity Clear (Clear); Urine Urobilinogen Normal (Normal)
[2020-05-17 17:22] LABS: Platelet Estimate ADEQUATE (ADEQ); Red Cell Morphology NORM C+C NORMAL (NORM C&C)
[2020-05-17 17:25] LABS: White Blood Cells 0 SEEN /hpf (0-5)
[2020-05-17 17:31] VITALS: BP 134/94; PULSE 86; RESP 13; O2SAT 98
[2020-05-17 18:31] VITALS: TEMP 36.6
[2020-05-17 20:49] VITALS: BP 170/99; PULSE 80; RESP 16; O2SAT 97
[2020-05-17 21:05] LABS: Magnesium 1.9 mg/dL (1.6-2.6)
== END 2020-05-17 21:31 | disposition home or self-care (01) ==
PROVIDERS: Emergency Provider Emergency Medicine; PCP Internal Medicine
DX: E87.6 Hypokalemia (principal); Z86.73 Personal history of transient ischemic attack (TIA), and cerebral infarction without residual deficits
CPT/HCPCS: 74177; 80048; 80076; 81001; 83690; 83735; 85025; 93005; 96361; 96374; 96375; 96376; 99285; J7030; Q9967; A4216; J2405

== ENCOUNTER 2020-05-26 20:02 | Inpatient (IN) | payer MEDICARE, SELFPAY ==
[2020-05-26 20:03] VITALS: BP 158/86; PULSE 93; RESP 25; TEMP 36.4; O2SAT 100; BMI 22.3
[2020-05-26 20:08] VITALS: BP 158/86; PULSE 93; RESP 22; O2SAT 99
--- NOTE | 2020-05-26 20:19 | EKG12_ITS ---
Test Reason : NAUESA Blood Pressure : / mmHG Vent. Rate : 086 BPM Atrial Rate : 086 BPM P-R Int : 140 ms QRS Dur : 100 ms QT Int : 398 ms P-R-T Axes : 000 125 142 degrees QTc Int : 476 ms Normal sinus rhythm Left posterior fascicular block Nonspecific ST abnormality Abnormal ECG Confirmed by ZACH AGUERO, RICA ([id number]), editorial director ОЛЕГ GREGORY ([id number]) on 05/28/2020 11:09:24 AM Referred By: BERLIN Confirmed By:RICA SERRANO MD
--- NOTE | 2020-05-26 20:20 | CT_ITS ---
STUDY: CT BRAIN WITHOUT CONTRAST REASON FOR EXAM: Male, 69 years old. DIZZINESS,NAUSEA AND VOMITING -- HX:PANCREATIC CANCER RADIATION DOSAGE (If Supplied By Facility): CTDIvol = ( 44.99 ) mGy, DLP = ( 829.85 ) mGycm TECHNIQUE: Transaxial CT imaging of the brain was performed without administration of intravenous contrast material. Individualized dose optimization techniques were used for this CT. COMPARISON: 06/18/2019. FINDINGS: Normal soft tissue structures. Normal calvarium. Mild atrophy and periventricular white matter ischemic change. Normal basal ganglia and thalami. Normal brainstem. Normal cerebellum. There is no intracranial hemorrhage. There are no findings of an acute ischemic infarction. Normal visualized paranasal sinuses. CT/Brain/Head without Contrast IMPRESSION: Mild atrophy and periventricular white matter ischemic change. No mass or acute bleed. MRI with contrast would be useful for further evaluation if concern for metastatic disease. Electronically Signed: Elijah Marsh MD at 21:27 EST , Service support ,
--- NOTE | 2020-05-26 20:21 | ED.VIS.GEN ---
History of Present Illness Chief Complaint: Nausea/Vomiting Narrative: This patient is a 69-year-old male who presents with pancreatic cancer. He has multiple complaints. He is a poor informant. He has a history of pancreatic cancer and underwent chemotherapy here. About 1 month ago he had an abdominal robotic surgery in [place]. He was also treated with a experimental medication while there. He was seen here in the emergency department for nausea and abdominal pain. He had hypokalemia and possibly a postoperative seroma. Patient states that since yesterday he just does not feel right. He has a funny feeling in his head. He states he feels lightheaded worse with standing. He continues to have abdominal pain. He has had intermittent vomiting since his surgery. It is unclear if this is worse currently. Past Medical History - Allergies and Home Meds Allergies/Adverse Reactions: Allergies No Known Allergies Allergy (Verified 05/26/20 20:02) Primary Care Physician: Anjelica Mendoza MD [Primary Care Provider] - Past Medical History: - - Pancreatic cancer Surgical History: - - Cholecystectomy, left upper extremity surgery status post trauma with hardware. Smoking Status: Never smoker - Family History Maternal Family History: Family History (Last Reviewed 01/19/20 @ 09:50 by Corina Powell) Son No problems noted. Sister Diabetes Mother CAD (coronary artery disease) Grandmother Breast cancer Family History: Reports: High Cholesterol, Heart Disease, Hypertension, - - Patient notes that his mother at age 90, had a CABG in her 80s. Paternal Family History: Family History (Last Reviewed 01/19/20 @ 09:50 by Corina Powell) Son No problems noted. Sister Diabetes Mother CAD (coronary artery disease) Grandmother Breast cancer Family History: Reports: - - Patient notes that his father in his 90s, no significant history, was healthy, no heart disease, diabetes, cancer. Review of Systems All systems negative except as indicated General: Denies: Fever Eyes: Denies: Visual changes - bilaterally ENT: Denies: Bilateral ear pain Cardiovascular: Denies: Chest pain Respiratory: Denies: Dyspnea Gastrointestinal: Reports: Abdominal pain, Nausea, Vomiting Neurological: Reports: Parasthesia - Of toes, - - Dizziness Hematologic: Denies: Easy bruising Allergy: Denies: Uticaria Physical Exam Vital Signs/Narrative: Vital Signs Temp Pulse Resp BP Pulse Ox 05/26/20 20:08 93 22 H 158/86 H 99 05/26/20 20:03 97.6 F L 93 25 H 158/86 H 100 Inital Vital Signs reviewed: Yes General: Well nourished, Well developed Head: Normocephalic Eyes: EOMI ENT: Moist mucous membranes Neck: Supple Cardiovascular: Regular rate, Regular rhythm Respiratory: No distress, CTA bilaterally Abdomen: Soft, Tender - Mild diffuse nonfocal abdominal tenderness without guarding without rebound surgical wounds clean dry and intact Skin: Normal color Neurological: Alert, - - No focal or lateralizing neurological deficit, normal strength, normal sensation Psychological: Normal affect Diagnostic/Tx/Re-eval Impressions Brain CT 05/26/20 20:20 IMPRESSION: Mild atrophy and periventricular white matter ischemic change. No mass or acute bleed. MRI with contrast would be useful for further evaluation if concern for metastatic disease. Electronically Signed: Elijah Marsh MD at 21:27 EST , Service support , Chest X-Ray 05/26/20 21:17 IMPRESSION: No acute cardiopulmonary pathology Electronically Signed: Elijah Marsh MD at 21:28 EST , Service support , Abdomen/Pelvis CT 05/26/20 22:07 IMPRESSION: Postoperative change including with resection of the pancreatic head. There is intrahepatic biliary dilatation. Stable fluid collection with possible biloma or seroma. Colonic diverticulosis. No obstruction. Electronically Signed: Armando Bingham MD at 23:41 EST , Service support , 05/26/20 20:20 CT Head [Brain/Head without Contrast] [CT] Stat 05/26/20 21:17 Chest 1 View (Portable) [RAD] Stat 05/26/20 22:07 CT Abd [Abdomen/Pelvis W IV Cont ONLY] [CT] Stat Laboratory Results 05/26/20 05/26/20 19:42 19:42 WBC 14.1 H RBC 3.90 L Hgb 12.6 L Hct 36.2 L MCV 92.8 MCH 32.3 H MCHC 34.8 RDW Std Deviation 43.8 RDW Coeff of [place] 12.9 Plt Count 384 MPV 8.9 Immature Gran % (Auto) 0.600 Neut % (Auto) 88.1 H Lymph % (Auto) 3.6 L [place] % (Auto) 7.2 Eos % (Auto) 0.3 Baso % (Auto) 0.2 Absolute Neuts (auto) 12.4 H Absolute Lymphs (auto) 0.50 L Nucleated RBC % 0 Differential Comment SCANNED Sodium 130 L Potassium 3.0 L Chloride 94 L Carbon Dioxide 27.0 Anion Gap 9 BUN 11 Creatinine 0.87 Estim Creat Clear Calc 77.50 Est GFR (MDRD) Af Amer 113 Est GFR (MDRD) Non-Af 93 BUN/Creatinine Ratio 12.7 Glucose 118 H Calcium 9.2 Total Bilirubin 0.80 AST 22 ALT 44 Alkaline Phosphatase 124 H Troponin I < 0.015 Total Protein 7.9 Albumin 3.0 L Globulin 4.9 H Albumin/Globulin Ratio 0.6 L Lipase 29 L - Medical Decision Making Patient was treated with IV fluids morphine Zofran. He required repeat dosing of intravenous opiates for pain control. EKG shows normal sinus rhythm with left posterior fascicular block at a rate of 86. CT the head shows no acute process. CT abdomen pelvis shows a stable seroma. Labs are notable for right blood cell count of 14,000. Chest x-ray shows no infiltrate. Urinalysis is ordered and pending at the time of this dictation. I did discuss the CT imaging results with Dr. Mantilla. She reviewed imaging and does not believe there is any acute surgical pathology. Patient we discussed with the hospitalist service and admitted. He was given IV potassium and IV fluids here. ED Disposition - Plan for ED Patient: Disposition: Acute Care Hospital [facility] Diagnosis: Hyponatremia, Hypokalemia, Abdominal pain Referrals: Anjelica Mendoza MD [Primary Care Provider] -
[2020-05-26] MEDS: Morphine 4 MG/ML Syringe IV ×2 (20:40→22:32)
[2020-05-26] MEDS: 0.9% Normal Saline 1,000 ML 1000 ML IV (20:40)
[2020-05-26] MEDS: Ondansetron 4 MG/2 ML Vial IV ×2 (20:40→22:32)
[2020-05-26 20:54] LABS: Absolute Neutrophil Count 12.4 X10^3/uL (2.0-7.7); Basophil# 0.03 X10^3/uL; Basophil% 0.2 % (0-1); Eosinophil# 0.04 X10^3/uL; Eosinophils% 0.3 % (0-5); Hematocrit 36.2 % (40-54); Hemoglobin 12.6 g/dL (13.0-16.5); Lymphocyte % 3.6 % (19-41); Mean Corp Hgb Conc 34.8 g/dL (32-36); Mean Corpuscular Hgb 32.3 pg (27.0-32.0); Mean Corpuscular Volume 92.8 fL (80-94); Mean Platelet Vol. 8.9 fl (6.2-12.0); Monocyte# 1.01 X10^3/uL; Monocyte% 7.2 % (0-10); NRBC Flagged by Analyzer 0 % (0-5); Neutrophil % 88.1 % (47-70); POSITIVE DIFFERENTIAL YES; Platelet Count 384 K/mm3 (150-450); RBC Distribution Width CV 12.9 % (11.6-14.6); RBC Distribution Width SD 43.8 fl (35.1-43.9); White Blood Count 14.1 K/mm3 (4.4-11.0)
[2020-05-26 20:57] LABS: Differential Indicated SCAN CRITERIA MET
[2020-05-26 21:09] LABS: ALB/GLOB Ratio 0.6 RATIO (0.9-2.4); AST(SGOT) 22 U/L (15-37); Alanine Aminotransfer ALT/SGPT 44 U/L (16-61); Alkaline Phosphatase 124 U/L (45-117); Anion Gap 9 (5-15); BUN 11 mg/dL (7-18); BUN/Creat Ratio 12.7 RATIO (10-20); Calcium,Total 9.2 mg/dL (8.5-10.1); Chloride 94 mmol/L (98-107); Creatinine, Serum 0.87 mg/dL (0.70-1.30); EST Glomerular Filtration Rate 93 mL/min (>60); Est Glom Filt Rate - Afr Amer 113 mL/min (>60); Globulin 4.9 g/dL (2.2-4.2); Glucose 118 mg/dL (74-106); Lipase 29 U/L (73-393); Protein, Total 7.9 g/dL (6.4-8.2); Sodium Level 130 mmol/L (136-145)
--- NOTE | 2020-05-26 21:17 | RAD_ITS ---
STUDY: X-RAY CHEST REASON FOR EXAM: Male, 69 years old. NAUSEA AND VOMITING FOR 2 DAYS WITH EATING. REPORT RECENTLY HAVING SURGERY FOR PANCREATIC CA IN [facility]. TECHNIQUE: AP portable COMPARISON: 10/23/2019 FINDINGS: There is elevated right hemidiaphragm and minor atelectasis at the right base. Lungs are clear.. There is no demonstrated pleural abnormality. Mediport catheter seen on the right with tip in distal superior vena cava Normal size heart. Normal mediastinum and harvinder. Normal visualized pulmonary arteries. Normal visualized aortic arch and descending thoracic aorta. Normal visualized thoracic spine. Normal visualized ribs, clavicles, and shoulders. There is no demonstrated abnormality of the visualized soft tissue structures of the upper abdomen. No significant change since prior exam RAD/Chest 1 View (Portable) IMPRESSION: No acute cardiopulmonary pathology Electronically Signed: Elijah Marsh MD at 21:28 EST , Service support ,
[2020-05-26 21:33] LABS: Differential Comment SCANNED
[2020-05-26 22:02] VITALS: BP 136/87; PULSE 70; RESP 19; O2SAT 97
--- NOTE | 2020-05-26 22:07 | CT_ITS ---
STUDY: CT ABDOMEN AND PELVIS WITH CONTRAST REASON FOR EXAM: Male, 69 years old. NAUSEA AND VOMITING,ELEVATED WBC,RECENT PANCREAS SURGERY FOR CANCER RADIATION DOSAGE (If Supplied By Facility): CTDIvol = ( 10.65 ) mGy, DLP = ( 466.62 ) mGycm TECHNIQUE: Transaxial images were obtained from the dome of the diaphragm to the symphysis pubis without oral contrast. IV 100mL Isovue-300 was administered. Sagittal and coronal images were reconstructed. Individualized dose optimization techniques were used for this CT. COMPARISON: May 17, 2020 and September 01, 2019. FINDINGS: There is lower lung scarring or atelectasis. There are coronary artery calcifications. There is mild intrahepatic biliary dilatation. Gallbladder is not seen consistent with cholecystectomy. There is stable 5.7 cm lobular fluid collection adjacent to the inferior vena cava and portal region, series 2 images 28/141 through 36/141. Normal spleen. There is resection of the pancreatic head. There is atrophy of the body and tail of the pancreas. Normal bilateral adrenal glands. Normal right kidney. Normal left kidney. Postoperative changes of the stomach and proximal small intestine. There are multiple colonic diverticula consistent with diverticulosis. The appendix is visualized and appears normal. There is diffuse atherosclerotic calcification of the abdominal aorta, without a demonstrated aneurysm. Normal inferior vena cava. Normal retroperitoneum. Normal urinary bladder. There is mild free fluid in the pelvis. Normal abdominal wall. Mild degenerative changes of the spine. Degenerative change of the right hip. CT/Abdomen/Pelvis W IV Cont ONLY IMPRESSION: Postoperative change including with resection of the pancreatic head. There is intrahepatic biliary dilatation. Stable fluid collection with possible biloma or seroma. Colonic diverticulosis. No obstruction. Electronically Signed: Armando Bingham MD at 23:41 EST , Service support ,
--- NOTE | 2020-05-26 22:18 | ED.RN ---
patient states he forgot to ask for pain med and nausea med again but feels it is coming back and would like more. He is on his way to [place] and aware we will get him down there and this nurse will talk to Dr Souza, in meantime, for request. rest of meds are pending return from imaging as well.
[2020-05-26] MEDS: Potassium Chloride 10mEq/100mL 10 MEQ/100 ML IV.SOLN. 100 MEQ IV BOLUS ×2 (22:35→23:36)
[2020-05-26] MEDS: 0.9% Normal Saline 1,000 ML 999 ML IV (22:35)
--- NOTE | 2020-05-26 22:50 | ED.RN ---
Patient states he cannot pee and is aware we will try for a specimen to send for lab when next potassium bag is due
--- NOTE | 2020-05-26 23:11 | ED.RN ---
Patient c/p pain from IV potassium. No s/sx of infiltration and flushes easily with good blood return. Addd IV NS to dilute IV potassium to see if will help him with the pain. Will monitor and reassess.
--- NOTE | 2020-05-26 23:23 | NURSING ---
Patient reports the pain at IV site had gone away.
[2020-05-26 23:29] VITALS: BP 141/84; PULSE 89; RESP 17; TEMP 37.6; O2SAT 97
[2020-05-27] VITALS (10 sets, daily range): BP systolic 138–160; BP diastolic 83–97; PULSE 85–99; RESP 16–18; TEMP 36.4–36.9; O2SAT 95–100; BMI 21.6; BMI 21.7
[2020-05-27] MEDS: Potassium Chloride 10mEq/100mL 10 MEQ/100 ML IV.SOLN. 100 MEQ IV BOLUS ×2 (00:44→02:17)
--- NOTE | 2020-05-27 00:44 | PCM.HP.STD ---
Problem List (1) TIA (transient ischemic attack) Status: Chronic (2) Hypokalemia Status: Acute (3) Pancreas cancer Status: Acute Qualifiers: Pancreatic malignancy location: unspecified Qualified Code(s): C25.9 - Malignant neoplasm of pancreas, unspecified (4) Lung nodule Status: Chronic (5) Hyponatremia Status: Acute (6) Abdominal pain Status: Acute History of Present Illness Date of Admission: 05/27/20 Chief Complaint: Light Headedness The patient is a 69 year old M with a significant history of pancreatic cancer who present to the emergency department with lightheadedness. Associated with symptoms is nausea and dysgeusia which causes him to vomit. Also he has some loose stools but within the last 24 hours his bowels has not moved because he has not been eating. His symptoms has been going on for the past 2 days. He was at our emergency department on 05/17/2020 where he was treated for hypokalemia. In regard to his prostate cancer he is status post chemotherapy; radiation and surgery. He was at [place] where he had robotic pancreatic surgery in April 26, 2020. In the past he saw Dr. Rodriguez and also Dr. Kaur. Previous CT of the abdomen had showed seroma. On this presentation Emergency department doctor discussed the case with Dr. Mantilla who upon reviewing the imaging agreed that patient continues to have seroma. Past Medical History Past Medical History (Chronic Problems): Chronic Problems (Last Reviewed 05/27/20 @ 04:[address] Vinny Fuentes MD) TIA (transient ischemic attack) (Chronic) Lung nodule (Chronic) Medical History: Medical History (Last Reviewed 05/27/20 @ 04:[address] Vinny Fuentes MD) Adenocarcinoma of pancreas C25.9 Carotid artery stenosis I65.29 Hearing loss H91.90 left ear 60 percent Herpes zoster B02.9 PIN IN LEFT ARM 2003 [place] October 2019 Allergies No Known Allergies Allergy (Verified 05/26/20 20:02) Surgical History: Surgical History (Last Reviewed 05/27/20 @ 04:[address] Vinny Fuentes MD) History of cholecystectomy Z90.49 2003 Surgical History: - - Cholecystectomy, left upper extremity surgery status post trauma with hardware. Psychiatric History: No pertinent psych hx Smoking Status: Never smoker - *Family History Maternal Family History: Family History (Last Reviewed 05/27/20 @ 01:[address] Vinny Fuentes MD) Son No problems noted. Sister Diabetes Mother CAD (coronary artery disease) Grandmother Breast cancer History Items: High Cholesterol, Heart Disease, Hypertension, - - Patient notes that his mother at age 90, had a CABG in her 80s. Paternal Family History: Family History (Last Reviewed 05/27/20 @ 01:[address] Vinny Fuentes MD) Son No problems noted. Sister Diabetes Mother CAD (coronary artery disease) Grandmother Breast cancer History Items: - - Patient notes that his father in his 90s, no significant history, was healthy, no heart disease, diabetes, cancer. Review of Systems Constitutional: Reports: Anorexia, Chills - Chronic, Weight Change - Lost 35 pounds since September 2019.. Denies: Fever HEENT: Denies: Head Aches, Sinus Congestion, Sinus Drainage Cardiovascular: Denies: Chest Pain, Palpitations Respiratory: Denies: Cough, Shortness of breath at rest, Sputum production Gastrointestinal: Reports: Abdominal Pain, Nausea, Vomiting Genitourinary: Denies: Dysuria Musculoskeletal: Denies: Joint Pain, Joint Tenderness Skin: Denies: Rash, Wounds Neurological: Denies: Numbness, Tingling, Focal weakness Psychiatric: Denies: Anxiety, Depression, Homicidal Ideations, Suicidal Ideations Hematologic/ Lymphatic: Denies: Easy Bruising, Easy Bleeding VTE Information - Inpt Only VTE Present on Admission: No VTE Mechan Device Prophylaxis: None VTE Pharm Prophylaxis ordered?: Yes Patient Problems: Active and Suspected Problems (Last Reviewed 05/27/20 @ 04:[address] Vinny Fuentes MD) Hypokalemia (Acute) Pancreas cancer (Acute) Hyponatremia (Acute) Abdominal pain (Acute) - Physical Exam Vitals/I&O's: Vital Signs Temp Pulse Resp BP Pulse Ox 99.6 F H 89 17 141/84 H 97 05/26/20 23:29 05/26/20 23:29 05/26/20 23:29 05/26/20 23:29 05/26/20 23:29 Oxygen Delivery Method Room Air Weight: 66.5 kg Body Mass Index (BMI) 22.3 Finger Stick Blood Glucose 133 Intake and Output for Last 24 Hours 05/25/20 05/26/20 05/27/20 23:59 23:59 23:59 Intake Total 1100 / 1100 100 / 100 Balance 1100 / 1100 100 / 100 General: Alert, Oriented x3, Cooperative HEENT: Atraumatic, PERRLA, EOMI, Normocephalic Neck: Supple, No JVD, Negative Carotid Bruits Lungs: Clear to auscultation, Normal air movement Cardiovascular: Regular rate, Normal S1, Normal S2, No murmurs Abdomen: Bowel Sounds Present, Soft, Non Tender, - - Healed incisions on abdomen Extremities: No edema, Capillary Refill Less than 3 Seconds Skin: No rashes, No breakdown Musculoskeletal: No Tenderness to Palpation of Joints or Extremities Neurological: Cranial nerves II-XII grossly intact Psych/Mental Status: Normal Affect, Appropriate Laboratory Results 05/26/20 19:42: WBC 14.1 H, RBC 3.90 L, Hgb 12.6 L, Hct 36.2 L, MCV 92.8, MCH 32.3 H, MCHC 34.8, RDW Std Deviation 43.8, RDW Coeff of [place] 12.9, Plt Count 384, MPV 8.9, Immature Gran % (Auto) 0.600, Neut % (Auto) 88.1 H, Lymph % (Auto) 3.6 L, [place] % (Auto) 7.2, Eos % (Auto) 0.3, Baso % (Auto) 0.2, Absolute Neuts (auto) 12.4 H, Absolute Lymphs (auto) 0.50 L, Nucleated RBC % 0, Differential Comment SCANNED 05/26/20 19:42: Sodium 130 L, Potassium 3.0 L, Chloride 94 L, Carbon Dioxide 27.0, Anion Gap 9, BUN 11, Creatinine 0.87, Estim Creat Clear Calc 77.50, Est GFR (MDRD) Af Amer 113, Est GFR (MDRD) Non-Af 93, BUN/Creatinine Ratio 12.7, Glucose 118 H, Calcium 9.2, Total Bilirubin 0.80, AST 22, ALT 44, Alkaline Phosphatase 124 H, Troponin I < 0.015, Total Protein 7.9, Albumin 3.0 L, Globulin 4.9 H, Albumin/Globulin Ratio 0.6 L, Lipase 29 L Current Medications Potassium Chloride () 10 meq in 100 mls @ 100 mls/hr IV BOLUS Q1H BRIGITTE Stop: 05/27/20 02:14 Last Infusion: 05/27/20 00:35 Dose: Infused Documented by: Assessment/Plan All Active Problems (Last Reviewed 05/27/20 @ 04:[address] Vinny Fuentes MD) Hypokalemia (Acute) Pancreas cancer (Acute) Hyponatremia (Acute) Abdominal pain (Acute) Biliary obstruction (Resolved) The patient is a 69 year old M with a significant history of pancreatic cancer status post chemotherapy, radiation and pancreatomy who present to the emergency department with light headedness; nausea; dysgeusia; vomiting; and abdominal pain. S/P pancreatectomy CT abdomen and pelvis with post operative changes with no evidence of evidence of pancreatic cancer. Supportive treatment with normal saline with IV potassium. Regular diet. Advised patient to direct all food which he may like. Dietitian consult. Pain control with IV as needed morphine. Antiemetics with as needed Zofran. He reports that he is on pancreatic enzymes. Pancreatic enzymes ordered. General surgery consult Lightheadedness Etiology could be from nausea and vomiting. Brain CT showed mild atrophy and periventricular white matter ischemic changes but with no mass of acute bleed. MRI contrast was recommended in the setting of history of cancer. MRI brain ordered. Hypokalemia Review of medical department labs showed a potassium of 3.0. Received potassium IV at the emergency department. Normal saline potassium as above. Trend CMP. Hyponatremia Review of medical department labs show sodium of 130. Normal saline potassium infusion as above. Trend CMP. Leukocytosis and low-grade fever Likely reactive Blood culture obtained in the emergency department; follow. DVT prophylaxis Subcutaneous Lovenox ordered. Inpatient E&M: 82095 Init Hosp L3
[2020-05-27 00:49] LABS: Bacteria 0 SEEN /hpf (None Seen); Mucous, Urine 0 SEEN /hpf (<or=2+); Squamous Epithelial Cells - UA 0 SEEN /hpf (0-5)
[2020-05-27 00:55] LABS: Color, Urine Yellow (Yellow); Glucose, Dipstick Normal (Normal); Ketone-Dipstick 50 mg/dl (Negative); Leukocyte Esterase-Dipstick Negative /ul (Negative); Nitrite-Dipstick Negative (Negative); Occult Blood-Urine 50 /ul (Negative); Protein-Dipstick 15 mg/dl (Negative); Urine Bilirubin Dipstick Negative (Negative); Urine Clarity Clear (Clear); Urine Urobilinogen Normal (Normal)
[2020-05-27 01:06] LABS: Red Blood Cells-Urine 0-5 SEEN /hpf (0-5); White Blood Cells 0-5 SEEN /hpf (0-5)
--- NOTE | 2020-05-27 01:31 | MRI_ITS ---
STUDY: MRI BRAIN WITH AND WITHOUT CONTRAST REASON FOR EXAM: Male, 69 years old patient with nausea, vomiting and lightheadedness. History of adenocarcinoma of the pancreas. Questionable metastases. TECHNIQUE: Standardized multiplanar fat and water weighted pulse sequences were obtained. 13 ml of IV Dotarem was administered for the contrast portion of the examination. Several images are limited by patient motion. COMPARISON: CT of the head dated 05/25/2020. FINDINGS: There is mild cerebral atrophy with widening of the extra-axial spaces and ventricular dilatation. There are a limited number of small white matter hyperintensities, distributed throughout the deep white matter tracts of the cerebral hemispheres, consistent with mild chronic white matter ischemic changes. There is no evidence for recent intracranial ischemia or other cause of cytotoxic edema on diffusion weighted imaging (DWI). Normal T2* images of the brain without demonstrated susceptibility artifact. There is no demonstrated hemosiderin stain. There are prominent perivascular spaces (PVS) involving the basal ganglia. Normal thalami. There is no extra-axial fluid accumulation. Normal flow voids within the major intracranial circulation suggesting patency by spin echo criteria. Normal venous enhancement. There is no enhancing intra-axial or extra-axial abnormality. Normal sella turcica, pituitary gland, infundibular stalk, optic chiasm and hypothalamus. Normal tectal plate and pineal gland. Normal midbrain, rosette and medulla. There is mild atrophy of the cerebellum. There are large basal cisterns. Normal bilateral temporal bones. Normal bilateral internal auditory canals. No demonstrated orbital abnormality, within the constraints of a routine brain study. Normal visualized paranasal sinuses. Normal calvarium and skull base. Normal visualized soft tissue structures. Normal visualized upper cervical spine. MRI/Brain W/WO Contrast IMPRESSION: 1. Involutional changes of the brain, as described above. 2. No MR evidence for acute infarct or metastasis Electronically Signed: Jyotsna Queen MD at 11:29 EST , Service support ,
[2020-05-27] MEDS: Morphine 2 MG/ML Syringe IV ×4 (02:00→23:45)
[2020-05-27] MEDS: Potassium Chloride 40 MEQ in 0.9% Normal Saline 1,000 ML 100 MEQ IV ×3 (02:03→23:45)
[2020-05-27 06:50] LABS: Absolute Lymphocyte Count 0.49 X10^3/uL (0.83-4.51); Absolute Neutrophil Count 12.6 X10^3/uL (2.0-7.7); Basophil# 0.05 X10^3/uL; Basophil% 0.4 % (0-1); Eosinophil# 0.03 X10^3/uL; Eosinophils% 0.2 % (0-5); Hematocrit 37.6 % (40-54); Hemoglobin 12.7 g/dL (13.0-16.5); Lymphocyte # 0.49 X10^3/ul (4.0); Lymphocyte % 3.4 % (19-41); Mean Corp Hgb Conc 33.8 g/dL (32-36); Mean Corpuscular Hgb 32.1 pg (27.0-32.0); Mean Corpuscular Volume 94.9 fL (80-94); Mean Platelet Vol. 9.5 fl (6.2-12.0); Monocyte# 1.04 X10^3/uL; Monocyte% 7.3 % (0-10); NRBC Flagged by Analyzer 0 % (0-5); Neutrophil # 12.61 X10^3/uL (2.7-7.7); Neutrophil % 88.3 % (47-70); POSITIVE DIFFERENTIAL YES; Platelet Count 352 K/mm3 (150-450); RBC Distribution Width SD 45.1 fl (35.1-43.9); Red Blood Count 3.96 M/mm3 (4.6-6.2); White Blood Count 14.3 K/mm3 (4.4-11.0)
[2020-05-27 06:57] LABS: Differential Indicated SCAN CRITERIA MET
[2020-05-27 07:07] LABS: Differential Comment SCANNED
[2020-05-27 07:25] LABS: ALB/GLOB Ratio 0.6 RATIO (0.9-2.4); AST(SGOT) 27 U/L (15-37); Alanine Aminotransfer ALT/SGPT 40 U/L (16-61); Albumin, Serum 2.9 g/dL (3.2-5.0); Alkaline Phosphatase 119 U/L (45-117); Anion Gap 9 (5-15); BUN 9 mg/dL (7-18); BUN/Creat Ratio 11.6 RATIO (10-20); Calcium,Total 9.2 mg/dL (8.5-10.1); Chloride 100 mmol/L (98-107); Creatinine, Serum 0.78 mg/dL (0.70-1.30); EST Glomerular Filtration Rate 105 mL/min (>60); Est Glom Filt Rate - Afr Amer 128 mL/min (>60); Globulin 4.6 g/dL (2.2-4.2); Glucose 102 mg/dL (74-106); Potassium 3.6 mmol/L (3.5-5.1); Protein, Total 7.5 g/dL (6.4-8.2); Sodium Level 130 mmol/L (136-145)
--- NOTE | 2020-05-27 08:38 | PCM.CONS.GEN ---
Reason for Consult Date of Consultation: 05/27/20 History of Present Illness: The patient is a 69 year old M Presented to the ER due to nausea and decreased appetite. Patient recently had a robotic Whipple done at [facility] on April 26, 2020For stage I pancreatic cancer patient also had previously had chemo and radiation. Patient was down there for 2 weeks.Patient states that more recently has not been able to tolerate the Ensure protein drinks. Patient did have a telephone appointment with his surgeon yesterday states that he was not surprised by the fluid collection previously seen on his CAT scan when he came to the ER here.Patient previously also states he was drinking a lot of water which his surgeon did tell him to cut back on the water and he did switch to electrolyte drinks. Patient sodium was 130 when he came in and potassium was 3.Patient also leukocytosis of 14.1 Past Medical History Past Medical History (Chronic Problems): Chronic Problems (Last Reviewed 05/27/20 @ 04:[address] Vinny Fuentes MD) TIA (transient ischemic attack) (Chronic) Lung nodule (Chronic) Medical History: Medical History (Last Reviewed 05/27/20 @ 04:[address] Vinny Fuentes MD) Adenocarcinoma of pancreas C25.9 Carotid artery stenosis I65.29 Hearing loss H91.90 left ear 60 percent Herpes zoster B02.9 PIN IN LEFT ARM 2003 [place] October 2019 Allergies No Known Allergies Allergy (Verified 05/26/20 20:02) Surgical History: Surgical History (Last Reviewed 05/27/20 @ 04:[address] Vinny Fuentes MD) History of cholecystectomy Z90.49 2003 Surgical History: - - Cholecystectomy, left upper extremity surgery status post trauma with hardware, Robotic Whipple done at [facility] on 04/26/2020-Status post Neoadjuvant chemo and radiation Psychiatric History: No pertinent psych hx Smoking Status: Never smoker - *Family History Maternal Family History: Family History (Last Reviewed 05/27/20 @ 01:[address] Vinny Fuentes MD) Son No problems noted. Sister Diabetes Mother CAD (coronary artery disease) Grandmother Breast cancer History Items: High Cholesterol, Heart Disease, Hypertension, - - Patient notes that his mother at age 90, had a CABG in her 80s. Paternal Family History: Family History (Last Reviewed 05/27/20 @ 01:[address] Vinny Fuentes MD) Son No problems noted. Sister Diabetes Mother CAD (coronary artery disease) Grandmother Breast cancer History Items: - - Patient notes that his father in his 90s, no significant history, was healthy, no heart disease, diabetes, cancer. Review of Systems Constitutional: Reports: Anorexia Eyes: Denies: Blurred vision HEENT: Denies: Difficulty Swallowing Cardiovascular: Denies: Chest Pain Respiratory: Denies: Cough Gastrointestinal: Reports: Nausea, Vomiting. Denies: Abdominal Pain, Constipation, Diarrhea Genitourinary: Denies: Dysuria Patient Problems: Active and Suspected Problems (Last Reviewed 05/27/20 @ 04:[address] Vinny Fuentes MD) Hypokalemia (Acute) Pancreas cancer (Acute) Hyponatremia (Acute) Abdominal pain (Acute) - Physical Exam Vitals/I&O's: Vital Signs Temp Pulse Resp BP Pulse Ox 97.6 F L 99 16 152/87 H 97 05/27/20 01:39 05/27/20 01:39 05/27/20 01:39 05/27/20 01:39 05/27/20 07:40 Oxygen Delivery Method Room Air Weight: 142 lb 6.698 oz Body Mass Index (BMI) 21.6 Finger Stick Blood Glucose 133 Intake and Output for Last 24 Hours 05/25/20 05/26/20 05/27/20 23:59 23:59 23:59 Intake Total 2099 550 / 550 Balance 2099 550 / 550 General: Alert, Cooperative, No apparent distress HEENT: Atraumatic Lungs: Normal air movement Cardiovascular: Regular rate Abdomen: Soft, Non Tender, Non-Distended, - - incisions healing well w dermabond Extremities: No clubbing, No cyanosis, No edema Neurological: Cranial nerves II-XII grossly intact Psych/Mental Status: Normal Affect Laboratory Results 05/26/20 19:42: WBC 14.1 H, RBC 3.90 L, Hgb 12.6 L, Hct 36.2 L, MCV 92.8, MCH 32.3 H, MCHC 34.8, RDW Std Deviation 43.8, RDW Coeff of [place] 12.9, Plt Count 384, MPV 8.9, Immature Gran % (Auto) 0.600, Neut % (Auto) 88.1 H, Lymph % (Auto) 3.6 L, [place] % (Auto) 7.2, Eos % (Auto) 0.3, Baso % (Auto) 0.2, Absolute Neuts (auto) 12.4 H, Absolute Lymphs (auto) 0.50 L, Nucleated RBC % 0, Differential Comment SCANNED 05/26/20 19:42: Sodium 130 L, Potassium 3.0 L, Chloride 94 L, Carbon Dioxide 27.0, Anion Gap 9, BUN 11, Creatinine 0.87, Estim Creat Clear Calc 77.50, Est GFR (MDRD) Af Amer 113, Est GFR (MDRD) Non-Af 93, BUN/Creatinine Ratio 12.7, Glucose 118 H, Calcium 9.2, Total Bilirubin 0.80, AST 22, ALT 44, Alkaline Phosphatase 124 H, Troponin I < 0.015, Total Protein 7.9, Albumin 3.0 L, Globulin 4.9 H, Albumin/Globulin Ratio 0.6 L, Lipase 29 L 05/27/20 00:40: Urine Color Yellow, Urine Clarity Clear, Urine pH 7.0, Ur Specific [place] 1.010, Urine Protein 15 H, Urine Glucose (UA) Normal, Urine Ketones 50 H, Urine Occult Blood 50 H, Urine Nitrite Negative, Urine Bilirubin Negative, Urine Urobilinogen Normal, Ur Leukocyte Esterase Negative, Urine RBC 0-5 SEEN, Urine WBC 0-5 SEEN, Ur Squamous Epith Cells 0 SEEN, Urine Bacteria 0 SEEN, Urine Mucus 0 SEEN 05/27/20 06:30: WBC 14.3 H, RBC 3.96 L, Hgb 12.7 L, Hct 37.6 L, MCV 94.9 H, MCH 32.1 H, MCHC 33.8, RDW Std Deviation 45.1 H, RDW Coeff of [place] 13.0, Plt Count 352, MPV 9.5, Immature Gran % (Auto) 0.400, Neut % (Auto) 88.3 H, Lymph % (Auto) 3.4 L, [place] % (Auto) 7.3, Eos % (Auto) 0.2, Baso % (Auto) 0.4, Absolute Neuts (auto) 12.6 H, Absolute Lymphs (auto) 0.49 L, Nucleated RBC % 0, Differential Comment SCANNED 05/27/20 06:30: Sodium 130 L, Potassium 3.6, Chloride 100, Carbon Dioxide 21.0, Anion Gap 9, BUN 9, Creatinine 0.78, Estim Creat Clear Calc 65.50, Est GFR (MDRD) Af Amer 128, Est GFR (MDRD) Non-Af 105, BUN/Creatinine Ratio 11.6, Glucose 102, Calcium 9.2, Total Bilirubin 0.70, AST 27, ALT 40, Alkaline Phosphatase 119 H, Total Protein 7.5, Albumin 2.9 L, Globulin 4.6 H, Albumin/Globulin Ratio 0.6 L Current Medications Acetaminophen (Acetaminophen 325 Mg Tablet) 650 mg PO Q6H PRN PRN PRN Reason: Pain Score 1-10/Temp > 100.7 F Potassium Chloride 40 meq/ (Sodium Chloride) 1,020 mls @ 100 mls/hr IV .[id number] [facility] Last Admin: 05/27/20 02:03 Dose: 100 mls/hr Documented by: Sodium Chloride () 250 mls @ 15 mls/hr IV .[id number] PRN PRN Reason: Saline Flush Sodium Chloride () 250 mls @ 15 mls/hr IV .[id number] PRN PRN Reason: Additional IVPB Infusion Melatonin (Melatonin 3 Mg Tablet) 3 mg PO QHS PRN PRN PRN Reason: INSOMNIA Morphine Sulfate (Morphine 2 Mg/Ml Syringe) 2 mg IV Q3H PRN PRN PRN Reason: Pain Score 6-10 Last Admin: 05/27/20 02:00 Dose: 2 mg Documented by: Nutritional Formula (Lactose Free) (Ensure Enlive 120 Ml Liquid) 120 ml PO 4X/DAY [facility] Ondansetron HCl (Ondansetron 4 Mg/2 Ml Vial) 4 mg IV Q8H PRN PRN PRN Reason: NAUSEA/VOMITING Pancrelipase (Creon 3,[address] Capsule) 1 capsule PO TIDCM [facility] Senna/Docusate Sodium (Senna/Docusate Sodium 1 Tablet) 2 tablet PO BID PRN PRN PRN Reason: Constipation Sodium Chloride (0.9% Saline Lock 10 Ml Syringe) 10 - 40 ml IV UD PRN PRN Reason: SALINE FLUSH Assessment/Plan All Active Problems (Last Reviewed 05/27/20 @ 04:[address] Vinny Fuentes MD) Hypokalemia (Acute) Pancreas cancer (Acute) Hyponatremia (Acute) Abdominal pain (Acute) Biliary obstruction (Resolved) 69-year-old male status post Robotic Whipple at [facility] on April 26 (Status post Neoadjuvant chemo and radiation) with decreased appetite and nausea 1. We will attempt clears and Ensure as patient states his appetite has been decreased also have antinausea meds. CT abdomen pelvis looks to be postop changes. And the fluid collection looks actually a little smaller posteriorly-Likely postoperative. 2. Patient's white blood cell count was elevated at 14.3 unsure of etiology. 3. Discussed with patient that if he were to need surgical intervention would not be planning to do that here; as we do not perform Whipple's here. Patient states that that were to be the case he would prefer to go to [facility]. Marisabel Mantilla M.D. Pager: [phone] [facility] [address] [place] [address], [facility], [address] [place] [id number] Office: [phone] Inpatient E&M: 01830 Init Hosp L2
--- NOTE | 2020-05-27 09:06 | NURSING ---
pt to mri
[2020-05-27] MEDS: 0.9% Saline Lock 10 ML Syringe IV ×3 (09:08→12:18)
[2020-05-27] MEDS: Ondansetron 4 MG/2 ML Vial IV ×2 (09:08→20:45)
[2020-05-27] MEDS: Ensure Clear 120 ML Liquid PO (10:17)
--- NOTE | 2020-05-27 10:45 | CASEMGMT ---
RN MARLENE Face to Face with patient for initial transition planning/care coordination assessment. RN CM introduced self and role at [facility]. Patient lying in bed, alert and oriented. Patient willing to participate in assessment and is able to answer all questions appropriately. Care providers, pharmacy, and demographics verified. Patient wishes to discharge home, denies need for home health at this time. Patient states he has no further needs or concerns at this time. CM to follow for discharge planning needs that may arise. PCP: Reji Specialists: none Preferred Pharmacy: [facility] in [place] Insurance: [facility] Prescription Benefit: none Living Will/HPOA: none LNOK: sons Living Arrangements: Patient lives alone in a 1 story home with 3 steps to enter the home. Patient states he is independent. Son lives next door Transportation: self/son DME/HHC: Patient denies DME or previous HHC. Disposition Plan: Patient to discharge home with family support and follow-up plans in place. Leti BENITEZ, RN, CM
--- NOTE | 2020-05-27 11:48 | NURSING ---
The student RN informed primary nurse that the patient takes a baby Asprin daily. Clinical instructor updated home medication list.
[2020-05-27] MEDS: Creon 3,000 unit DR Capsule 1 CAP PO (13:43)
[2020-05-27] MEDS: Sodium Chloride 0.65% 1 SPRAY SPRAY.BTL 2 SPRAY NASAL (23:15)
[2020-05-28] MEDS: Morphine 2 MG/ML Syringe IV ×3 (05:59→20:30)
[2020-05-28] MEDS: Ondansetron 4 MG/2 ML Vial IV ×2 (05:59→12:54)
[2020-05-28 06:05] VITALS: BP 162/101; PULSE 99; RESP 18; TEMP 36.8; O2SAT 98
--- NOTE | 2020-05-28 07:10 | PCS.PANDOC ---
PANDEMIC DOCUMENTATION INITIATED: Date: 03/29/2020 Time:
[2020-05-28 07:14] LABS: Absolute Lymphocyte Count 0.31 X10^3/uL (0.83-4.51); Absolute Neutrophil Count 8.3 X10^3/uL (2.0-7.7); Basophil# 0.03 X10^3/uL; Basophil% 0.3 % (0-1); Eosinophil# 0.11 X10^3/uL; Eosinophils% 1.2 % (0-5); Hematocrit 33.2 % (40-54); Hemoglobin 11.3 g/dL (13.0-16.5); Lymphocyte # 0.31 X10^3/ul (4.0); Lymphocyte % 3.3 % (19-41); Mean Corpuscular Hgb 32.2 pg (27.0-32.0); Mean Corpuscular Volume 94.6 fL (80-94); Mean Platelet Vol. 8.8 fl (6.2-12.0); Monocyte# 0.62 X10^3/uL; Monocyte% 6.6 % (0-10); NRBC Flagged by Analyzer 0 % (0-5); Neutrophil # 8.26 X10^3/uL (2.7-7.7); Neutrophil % 88.1 % (47-70); POSITIVE DIFFERENTIAL YES; Platelet Count 279 K/mm3 (150-450); RBC Distribution Width CV 13.1 % (11.6-14.6); Red Blood Count 3.51 M/mm3 (4.6-6.2); White Blood Count 9.4 K/mm3 (4.4-11.0)
[2020-05-28 07:17] LABS: Differential Indicated SCAN CRITERIA MET
[2020-05-28 08:01] LABS: ALB/GLOB Ratio 0.5 RATIO (0.9-2.4); AST(SGOT) 45 U/L (15-37); Alanine Aminotransfer ALT/SGPT 45 U/L (16-61); Albumin, Serum 2.3 g/dL (3.2-5.0); Alkaline Phosphatase 108 U/L (45-117); Anion Gap 6 (5-15); BUN 4 mg/dL (7-18); BUN/Creat Ratio 7.3 RATIO (10-20); Calcium,Total 8.6 mg/dL (8.5-10.1); Chloride 101 mmol/L (98-107); Creatinine, Serum 0.55 mg/dL (0.70-1.30); EST Glomerular Filtration Rate 158 mL/min (>60); Est Glom Filt Rate - Afr Amer 191 mL/min (>60); Globulin 4.4 g/dL (2.2-4.2); Glucose 107 mg/dL (74-106); Potassium 3.6 mmol/L (3.5-5.1); Protein, Total 6.7 g/dL (6.4-8.2); Sodium Level 134 mmol/L (136-145)
[2020-05-28 09:43] VITALS: BP 137/77; PULSE 97; RESP 16; TEMP 36.8; O2SAT 97
--- NOTE | 2020-05-28 10:09 | PN_ITS ---
Patient Problems: Active and Suspected Problems (Last Reviewed 05/27/20 @ 04:[address] Vinny Fuentes MD) Hypokalemia (Acute) Pancreas cancer (Acute) Hyponatremia (Acute) Abdominal pain (Acute) Subjective: Was able to tolerate some clear liquids yesterday. Denies any significant abdominal pain but he still has some nausea though does appear to be improving Vitals/I&O's: Vital Signs Temp Pulse Resp BP Pulse Ox 98.3 F 97 16 137/77 H 97 05/28/20 09:43 05/28/20 09:43 05/28/20 09:43 05/28/20 09:43 05/28/20 09:43 Oxygen Delivery Method Room Air Weight: 142 lb 6.698 oz Body Mass Index (BMI) 21.6 Finger Stick Blood Glucose 133 Intake and Output for Last 24 Hours 05/26/20 05/27/20 05/28/20 23:59 23:59 23:59 Intake Total 2099 / 2100 2908.33 / 2908.33 1126.67 / 1126.67 Output Total 1750 / 1750 1200 / 1200 Balance 2099 / 2100 1158.33 / 1158.33 -73.33 / -73.33 General: Alert, Oriented x3, Cooperative, No apparent distress HEENT: Atraumatic, PERRLA, EOMI, Normocephalic Oral: Moist Mucosa Neck: Supple, No JVD Lungs: Clear to auscultation, Normal air movement, No rhonchi, No wheeze, No rales Cardiovascular: Regular rate, Regular Rhythm, Normal S1, Normal S2, No murmurs Abdomen: Soft, Non Tender, Non-Distended, No Hepato-splenomegaly Extremities: No edema, Capillary Refill Less than 3 Seconds Skin: No rashes, No breakdown Neurological: Neuro grossly intact, Sensory exam intact to light touch and pain Psych/Mental Status: Normal Affect, Appropriate Laboratory Results 05/28/20 06:55: WBC 9.4, RBC 3.51 L, Hgb 11.3 L, Hct 33.2 L, MCV 94.6 H, MCH 32.2 H, MCHC 34.0, RDW Std Deviation 46.0 H, RDW Coeff of [place] 13.1, Plt Count 279, MPV 8.8, Immature Gran % (Auto) 0.500, Neut % (Auto) 88.1 H, Lymph % (Auto) 3.3 L, [place] % (Auto) 6.6, Eos % (Auto) 1.2, Baso % (Auto) 0.3, Absolute Neuts (auto) 8.3 H, Absolute Lymphs (auto) 0.31 L, Nucleated RBC % 0, Differential Comment COMMENT 05/28/20 06:55: Sodium 134 L, Potassium 3.6, Chloride 101, Carbon Dioxide 27.0, Anion Gap 6, BUN 4 L, Creatinine 0.55 L, Estim Creat Clear Calc 65.50, Est GFR (MDRD) Af Amer 191, Est GFR (MDRD) Non-Af 158, BUN/Creatinine Ratio 7.3 L, Glucose 107 H, Calcium 8.6, Total Bilirubin 0.60, AST 45 H, ALT 45, Alkaline Phosphatase 108, Total Protein 6.7, Albumin 2.3 L, Globulin 4.4 H, Albumin/Globulin Ratio 0.5 L Current Medications Acetaminophen (Acetaminophen 325 Mg Tablet) 650 mg PO Q6H PRN PRN PRN Reason: Pain Score 1-10/Temp > 100.7 F Potassium Chloride 40 meq/ (Sodium Chloride) 1,020 mls @ 100 mls/hr IV .[id number] [facility] Last Infusion: 05/28/20 09:49 Dose: 0 mls/hr Documented by: Sodium Chloride () 250 mls @ 15 mls/hr IV .[id number] PRN PRN Reason: Saline Flush Sodium Chloride () 250 mls @ 15 mls/hr IV .[id number] PRN PRN Reason: Additional IVPB Infusion Pantoprazole Sodium 40 mg/ (Sodium Chloride) 110 mls @ 330 mls/hr IV Q24 [facility] Last Admin: 05/28/20 09:48 Dose: 330 mls/hr Documented by: Melatonin (Melatonin 3 Mg Tablet) 3 mg PO QHS PRN PRN PRN Reason: INSOMNIA Morphine Sulfate (Morphine 2 Mg/Ml Syringe) 2 mg IV Q3H PRN PRN PRN Reason: Pain Score 6-10 Last Admin: 05/28/20 05:59 Dose: 2 mg Documented by: Nutritional Formula (Lactose Free) (Ensure Clear 120 Ml Liquid) 120 ml PO 4X/DAY [facility] Last Admin: 05/28/20 09:49 Dose: Not Given Documented by: Ondansetron HCl (Ondansetron 4 Mg/2 Ml Vial) 4 mg IV Q8H PRN PRN PRN Reason: NAUSEA/VOMITING Last Admin: 05/28/20 05:59 Dose: 4 mg Documented by: Pancrelipase (Creon 3,[address] Capsule) 1 capsule PO TIDCM [facility] Last Admin: 05/28/20 09:50 Dose: Not Given Documented by: Senna/Docusate Sodium (Senna/Docusate Sodium 1 Tablet) 2 tablet PO BID PRN PRN PRN Reason: Constipation Sodium Chloride (0.9% Saline Lock 10 Ml Syringe) 10 - 40 ml IV UD PRN PRN Reason: SALINE FLUSH Last Admin: 05/27/20 12:18 Dose: 10 ml Documented by: Sodium Chloride (Sodium Chloride 0.65% 1 [place].Btl) 2 spray NASAL TID PRN PRN PRN Reason: NASAL DRYNESS Last Admin: 05/27/20 23:15 Dose: 2 spray Documented by: STROKE Vital Signs/Narrative: Vital Signs Temp Pulse Resp BP Pulse Ox 05/28/20 09:43 98.3 F 97 16 137/77 H 97 Medical Necessity - Tobacco Use Smoking Status: Never smoker Assessment/Plan All Active Problems (Last Reviewed 05/27/20 @ 04:[address] Vinny Fuentes MD) Hypokalemia (Acute) Pancreas cancer (Acute) Hyponatremia (Acute) Abdominal pain (Acute) Biliary obstruction (Resolved) 1. Viral gastritis and dehydration/status post pancreatectomy about a month ago/hypokalemia/hyponatremia -White blood cell count is normalized -Continue with IV fluids -Appreciate surgical assistance -Continue with antinausea medications -Seroma on CT scan as expected after his pancreatectomy -Evaluated by PT and OT, for possible placement though he is hesitant about going to a care home facility though he does endorse being weak -Continue with Creon as well as PPI -I discussed with him that if he continues to refuse p.o. intake, he will only get weaker and then will be forced to go to a care home facility for rehab -Hyponatremia and hypokalemia resolving DVT: Lovenox Inpatient E&M: [id number] Subs Hosp L2
[2020-05-28] MEDS: Potassium Chloride 40 MEQ in 0.9% Normal Saline 1,000 ML 100 MEQ IV ×2 (10:29→21:25)
--- NOTE | 2020-05-28 12:21 | NURSING ---
pt states he gives permission for nurse to release information to Fabio Bret who is a son. Son states that he is concerned about pt- states that when pt was in [place], his dad did not want to get oob and move and has been nauseated, tired for the last 3 weeks. pt states he had to make his dad get oob and move. son states that his father has been through a lot. he has been sick, been mentally depressed, has very little support, has just been through a divorce this past year and he doesn't talk with anyone about this. Son is requesting that a social media marketing analyst speak with his dad so he can voice some of his emotions and frustrations, he needs to talk with someone and get it out. He needs to find a reason to push through this. Phone number given to [facility] floor and son Fabio states he will call back, updated on visitation policy. Will notify Md of son's concern.
[2020-05-28] MEDS: 0.9% Saline Lock 10 ML Syringe IV ×2 (12:55→20:34)
[2020-05-28 15:33] VITALS: BP 158/99; PULSE 94; RESP 18; TEMP 36.9; O2SAT 99
--- NOTE | 2020-05-28 15:59 | NT.THERAPY_ITS ---
Nutrition Therapy Report - History Nutrition Services has been consulted to:: Manage nutrient details of diet order Current diet / nutrition support order:: regular, 120mL ensure clear 4x/day - Anthropometric Measurements Height:: 5 ft 8 in Weight:: 64.6 kg Body Mass Index (BMI):: 21.6 - Relevant Labs Relevant Labs:: WBC 14.3 K/mm3 (4.4-11.0) H 05/27/20 06:30 RBC 3.51 M/mm3 (4.6-6.2) L 05/28/20 06:55 Hgb 11.3 g/dL (13.0-16.5) L 05/28/20 06:55 Hct 33.2 % (40-54) L 05/28/20 06:55 MCV 94.6 fL (80-94) H 05/28/20 06:55 MCH 32.2 pg (27.0-32.0) H 05/28/20 06:55 RDW Std Deviation 46.0 fl (35.1-43.9) H 05/28/20 06:55 Neut % (Auto) 88.1 % (47-70) H 05/28/20 06:55 Lymph % (Auto) 3.3 % (19-41) L 05/28/20 06:55 Absolute Neuts (auto) 8.3 X10^3/uL (2.0-7.7) H 05/28/20 06:55 Absolute Lymphs (auto) 0.31 X10^3/uL (0.83-4.51) L 05/28/20 06:55 Sodium 134 mmol/L (136-145) L 05/28/20 06:55 Potassium 3.0 mmol/L (3.5-5.1) L 05/26/20 19:42 Chloride 94 mmol/L (98-107) L 05/26/20 19:42 BUN 4 mg/dL (7-18) L 05/28/20 06:55 Creatinine 0.55 mg/dL (0.70-1.30) L 05/28/20 06:55 BUN/Creatinine Ratio 7.3 RATIO (10-20) L 05/28/20 06:55 Glucose 107 mg/dL (74-106) H 05/28/20 06:55 AST 45 U/L (15-37) H 05/28/20 06:55 Alkaline Phosphatase 119 U/L (45-117) H 05/27/20 06:30 Albumin 2.3 g/dL (3.2-5.0) L 05/28/20 06:55 Globulin 4.4 g/dL (2.2-4.2) H 05/28/20 06:55 Albumin/Globulin Ratio 0.5 RATIO (0.9-2.4) L 05/28/20 06:55 Lipase 29 U/L (73-393) L 05/26/20 19:42 - Assessment Food / Nutrition-Related History:: S/p whipple procedure on 04/26/20 for pancreatic cancer. Continues w/ very minimal PO intake- only tolerated sips of clears today. C/o abd pain, nausea. States he weighed 175# in October 2019-32.6#/ 18.6% wt loss x 7 months, significant for malnutrition. Overall decreased appetite/intake d/t cancer. States he was tolerating a regular diet a few weeks after whipple surgery and recently began not tolerating ensure at home. - Nutrition Diagnosis Problem / Etiology / Signs & Symptoms (PES):: chronic, severe malnutrition related to increased energy needs w/ pancreatic cancer as evidenced by estimated PO intake meeting less than 75% of estimated nutritional needs >3 months, wt loss of 32.6#/18.6% x 7 months. Evidence of Malnutrition Exists:: Yes Severe PCM:: Chronic Illness - Nutrition Intervention Nutrition Prescription:: Kcal:7236-0902 (30 kcal/kg). Pro:65-75g (1g/kg). Fluid: 5743-9309 (1mL/kcal) - Food / Nutrient Delivery Interventions Summary of nutrition intervention:: Pt refusing other offers of Ensure/supplements, foods. Encouraged PO intake. Discussed w/ RN Rosemarie- pt may be w/ low motivation d/t depression. Antidepressant started by hospitalist. Nutrition support ordered as / adjusted to:: Continue Regular diet w/ ONS ensure clear w/ medpass. Consider nutrition support if unable to tolerate PO intake. Nutrition education provided?: Yes - MNT Monitoring Further MNT monitoring and evaluation required?: Yes MNT Follow-up in:: 3-5 days
[2020-05-28 16:14] VITALS: BMI 21.6
[2020-05-28 18:04] VITALS: BP 165/93; PULSE 97; RESP 16; O2SAT 98
[2020-05-28] MEDS: Sodium Chloride 0.65% 1 SPRAY SPRAY.BTL 2 SPRAY NASAL (20:05)
[2020-05-28 21:39] VITALS: BP 171/104; PULSE 111; RESP 20; TEMP 36.8; O2SAT 95
[2020-05-29 03:55] VITALS: BP 163/103; PULSE 101; RESP 20; TEMP 36.7; O2SAT 97
[2020-05-29] MEDS: Ondansetron 4 MG/2 ML Vial IV ×3 (04:06→21:40)
[2020-05-29] MEDS: 0.9% Saline Lock 10 ML Syringe IV ×3 (04:08→21:40)
[2020-05-29] MEDS: Potassium Chloride 40 MEQ in 0.9% Normal Saline 1,000 ML 100 MEQ IV (06:02)
[2020-05-29 07:30] VITALS: O2SAT 97
--- NOTE | 2020-05-29 09:47 | PN.SURG_ITS ---
Patient Problems: Active and Suspected Problems (Last Reviewed 05/27/20 @ 04:[address] Vinny Fuentes MD) Hypokalemia (Acute) Pancreas cancer (Acute) Hyponatremia (Acute) Abdominal pain (Acute) Subjective: Patient complaining still of significant nausea and vomiting. Even the smell of food makes him want to gag. Not able to put in any p.o. intake. Not complaining of any abdominal pain. Objective: Incisions are healing well there is no signs of infection his abdomen is soft nontender nondistended. - Physical Exam Vitals/I&O's: Vital Signs Temp Pulse Resp BP Pulse Ox 98.1 F 101 H 20 H 163/103 H 97 05/29/20 03:55 05/29/20 03:55 05/29/20 03:55 05/29/20 03:55 05/29/20 03:55 Oxygen Delivery Method Room Air Weight: 142 lb 6.698 oz Body Mass Index (BMI) 21.6 Finger Stick Blood Glucose 133 Intake and Output for Last 24 Hours 05/27/20 05/28/20 05/29/20 23:59 23:59 23:59 Intake Total 2908.33 / 2908.33 2286.67 / 2286.67 861.67 / 861.67 Output Total 1750 / 1750 1200 / 1200 Balance 1158.33 / 1158.33 1086.67 / 1086.67 861.67 / 861.67 Microbiology Past 72 Hours 05/27/20 01:00 Blood Culture (Wb) - Anticubital Left Blood Culture - Preliminary No growth in 48 hours. 05/27/20 01:12 Blood Culture (Wb) - Anticubital Right Blood Culture - Preliminary No growth in 48 hours. 05/28/20 14:15 Mucosa - Nose SARS-CoV-2 Antigen (Rapid) - Final Current Medications Acetaminophen (Acetaminophen 325 Mg Tablet) 650 mg PO Q6H PRN PRN PRN Reason: Pain Score 1-10/Temp > 100.7 F Sodium Chloride () 250 mls @ 15 mls/hr IV .[id number] PRN PRN Reason: Saline Flush Sodium Chloride () 250 mls @ 15 mls/hr IV .[id number] PRN PRN Reason: Additional IVPB Infusion Pantoprazole Sodium 40 mg/ (Sodium Chloride) 110 mls @ 330 mls/hr IV Q24 [facility] Last Infusion: 05/28/20 10:31 Dose: Infused Documented by: Potassium Chloride/Dextrose/Sod Cl () 1,000 mls @ 100 mls/hr IV .Q10H [facility] Melatonin (Melatonin 3 Mg Tablet) 3 mg PO QHS PRN PRN PRN Reason: INSOMNIA Morphine Sulfate (Morphine 2 Mg/Ml Syringe) 2 mg IV Q3H PRN PRN PRN Reason: Pain Score 6-10 Last Admin: 05/28/20 20:30 Dose: 2 mg Documented by: Nutritional Formula (Lactose Free) (Ensure Clear 120 Ml Liquid) 120 ml PO 4X/DAY [facility] Last Admin: 05/28/20 21:25 Dose: Not Given Documented by: Ondansetron HCl (Ondansetron 4 Mg/2 Ml Vial) 4 mg IV Q8H PRN PRN PRN Reason: NAUSEA/VOMITING Last Admin: 05/29/20 04:06 Dose: 4 mg Documented by: Pancrelipase (Creon 3,[address] Capsule) 1 capsule PO TIDCM [facility] Last Admin: 05/28/20 15:35 Dose: Not Given Documented by: Senna/Docusate Sodium (Senna/Docusate Sodium 1 Tablet) 2 tablet PO BID PRN PRN PRN Reason: Constipation Sertraline HCl (Sertraline 50 Mg Tablet) 50 mg PO DAILY [facility] Last Admin: 05/28/20 15:36 Dose: Not Given Documented by: Sodium Chloride (0.9% Saline Lock 10 Ml Syringe) 10 - 40 ml IV UD PRN PRN Reason: SALINE FLUSH Last Admin: 05/29/20 06:07 Dose: 10 ml Documented by: Sodium Chloride (Sodium Chloride 0.65% 1 [place].Btl) 2 spray NASAL TID PRN PRN PRN Reason: NASAL DRYNESS Last Admin: 05/28/20 20:05 Dose: 2 spray Documented by: Medical Necessity - Tobacco Use Smoking Status: Never smoker Assessment/Plan All Active Problems (Last Reviewed 05/27/20 @ 04:[address] Vinny Fuentes MD) Hypokalemia (Acute) Pancreas cancer (Acute) Hyponatremia (Acute) Abdominal pain (Acute) Biliary obstruction (Resolved) This point I would place a PICC line in him. Start him on TPN. He has had over a week of almost no p.o. intake. And he is probably starting to be significantly in negative nitrogen balance. Probably would order a small bowel follow-through on him on Sunday.
[2020-05-29 09:55] VITALS: BP 150/96; PULSE 90; RESP 16; TEMP 36.7; O2SAT 98
[2020-05-29] MEDS: Creon 3,000 unit DR Capsule 1 CAP PO (10:15)
[2020-05-29] MEDS: Ensure Clear 120 ML Liquid PO ×2 (10:15→14:54)
--- NOTE | 2020-05-29 11:16 | PCM.PN.HOSP ---
Patient Problems: Active and Suspected Problems (Last Reviewed 05/27/20 @ 04:[address] Vinny Fuentes MD) Hypokalemia (Acute) Pancreas cancer (Acute) Hyponatremia (Acute) Abdominal pain (Acute) Subjective: Still with nausea, unable to eat anything. Mild abdominal pain that seems to have improved a little Vitals/I&O's: Vital Signs Temp Pulse Resp BP Pulse Ox 98.0 F 90 16 150/96 H 98 05/29/20 09:55 05/29/20 09:55 05/29/20 09:55 05/29/20 09:55 05/29/20 09:55 Oxygen Delivery Method Room Air Weight: 142 lb 6.698 oz Body Mass Index (BMI) 21.6 Finger Stick Blood Glucose 133 Intake and Output for Last 24 Hours 05/27/20 05/28/20 05/29/20 23:59 23:59 23:59 Intake Total 2908.33 / 2908.33 2286.67 / 2286.67 971.67 / 971.67 Output Total 1750 / 1750 1200 / 1200 Balance 1158.33 / 1158.33 1086.67 / 1086.67 971.67 / 971.67 General: Alert, Oriented x3, Cooperative, No apparent distress HEENT: Atraumatic, PERRLA, EOMI, Normocephalic Oral: Moist Mucosa Neck: Supple, No JVD Lungs: Clear to auscultation, Normal air movement, No rhonchi, No wheeze, No rales Cardiovascular: Regular rate, Regular Rhythm, Normal S1, Normal S2, No murmurs Abdomen: Soft, Non Tender, Non-Distended, No Hepato-splenomegaly Extremities: No edema, Capillary Refill Less than 3 Seconds Skin: No rashes, No breakdown Neurological: Neuro grossly intact, Sensory exam intact to light touch and pain Psych/Mental Status: Normal Affect, Appropriate Microbiology Past 72 Hours 05/27/20 01:00 Blood Culture (Wb) - Anticubital Left Blood Culture - Preliminary No growth in 48 hours. 05/27/20 01:12 Blood Culture (Wb) - Anticubital Right Blood Culture - Preliminary No growth in 48 hours. 05/28/20 14:15 Mucosa - Nose SARS-CoV-2 Antigen (Rapid) - Final Current Medications Acetaminophen (Acetaminophen 325 Mg Tablet) 650 mg PO Q6H PRN PRN PRN Reason: Pain Score 1-10/Temp > 100.7 F Sodium Chloride () 250 mls @ 15 mls/hr IV .[id number] PRN PRN Reason: Saline Flush Sodium Chloride () 250 mls @ 15 mls/hr IV .[id number] PRN PRN Reason: Additional IVPB Infusion Pantoprazole Sodium 40 mg/ (Sodium Chloride) 110 mls @ 330 mls/hr IV Q24 [facility] Last Infusion: 05/29/20 10:45 Dose: Infused Documented by: Potassium Chloride/Dextrose/Sod Cl () 1,000 mls @ 100 mls/hr IV .Q10H [facility] Melatonin (Melatonin 3 Mg Tablet) 3 mg PO QHS PRN PRN PRN Reason: INSOMNIA Morphine Sulfate (Morphine 2 Mg/Ml Syringe) 2 mg IV Q3H PRN PRN PRN Reason: Pain Score 6-10 Last Admin: 05/28/20 20:30 Dose: 2 mg Documented by: Nutritional Formula (Lactose Free) (Ensure Clear 120 Ml Liquid) 120 ml PO 4X/DAY [facility] Last Admin: 05/29/20 10:15 Dose: 120 ml Documented by: Ondansetron HCl (Ondansetron 4 Mg/2 Ml Vial) 4 mg IV Q8H PRN PRN PRN Reason: NAUSEA/VOMITING Last Admin: 05/29/20 04:06 Dose: 4 mg Documented by: Pancrelipase (Creon 3,[address] Capsule) 1 capsule PO TIDCM [facility] Last Admin: 05/29/20 10:15 Dose: 1 capsule Documented by: Prochlorperazine Edisylate (Prochlorperazine 10 Mg/2 Ml Vial) 5 mg IV Q4H PRN PRN PRN Reason: NAUSEA/VOMITING Senna/Docusate Sodium (Senna/Docusate Sodium 1 Tablet) 2 tablet PO BID PRN PRN PRN Reason: Constipation Sertraline HCl (Sertraline 50 Mg Tablet) 50 mg PO DAILY [facility] Last Admin: 05/29/20 10:15 Dose: Not Given Documented by: Sodium Chloride (0.9% Saline Lock 10 Ml Syringe) 10 - 40 ml IV UD PRN PRN Reason: SALINE FLUSH Last Admin: 05/29/20 06:07 Dose: 10 ml Documented by: Sodium Chloride (Sodium Chloride 0.65% 1 [place].Btl) 2 spray NASAL TID PRN PRN PRN Reason: NASAL DRYNESS Last Admin: 05/28/20 20:05 Dose: 2 spray Documented by: STROKE Vital Signs/Narrative: Vital Signs Temp Pulse Resp BP Pulse Ox 05/29/20 09:55 98.0 F 90 16 150/96 H 98 05/29/20 07:30 97 Medical Necessity - Tobacco Use Smoking Status: Never smoker Assessment/Plan All Active Problems (Last Reviewed 05/27/20 @ 04:[address] Vinny Fuentes MD) Hypokalemia (Acute) Pancreas cancer (Acute) Hyponatremia (Acute) Abdominal pain (Acute) Biliary obstruction (Resolved) 1. Viral gastritis and dehydration/status post pancreatectomy about a month ago/hypokalemia/hyponatremia -White blood cell count is normalized -Given his lack of p.o. intake, will place a PICC line and start him on TPN -Appreciate surgical assistance, they would like to proceed with small bowel follow-through on Sunday to make sure there is no stricture -Continue with antinausea medications -Seroma on CT scan as expected after his pancreatectomy -Evaluated by PT and OT, for possible placement though he is hesitant about going to a snf facility though he does endorse being weak -Continue with Creon as well as PPI, I discussed with him that he needs to take his p.o. medications can help him with digestion and possibly his nausea DVT: Lovenox Inpatient E&M: [id number] Subs Hosp L2
[2020-05-29] MEDS: proCHLORPERazine 10 MG/2 ML Vial 5 MG IV (11:47)
--- NOTE | 2020-05-29 12:42 | NURSING ---
access services representative in to start picc line when pt asked why cant you just use my port i have here? charge machine operator aware and texted ok to use port. port accessed by access services representative at bedside.
--- NOTE | 2020-05-29 13:35 | NT.THERAPY_ITS ---
Nutrition Therapy Report - History Nutrition Services has been consulted to:: Manage parenteral nutrition Current diet / nutrition support order:: Regular vegetarian w/ CIB at meals - Anthropometric Measurements Height:: 5 ft 8 in Weight:: 64.6 kg Body Mass Index (BMI):: 21.6 - Relevant Labs Relevant Labs:: WBC 14.3 K/mm3 (4.4-11.0) H 05/27/20 06:30 RBC 3.51 M/mm3 (4.6-6.2) L 05/28/20 06:55 Hgb 11.3 g/dL (13.0-16.5) L 05/28/20 06:55 Hct 33.2 % (40-54) L 05/28/20 06:55 MCV 94.6 fL (80-94) H 05/28/20 06:55 MCH 32.2 pg (27.0-32.0) H 05/28/20 06:55 RDW Std Deviation 46.0 fl (35.1-43.9) H 05/28/20 06:55 Neut % (Auto) 88.1 % (47-70) H 05/28/20 06:55 Lymph % (Auto) 3.3 % (19-41) L 05/28/20 06:55 Absolute Neuts (auto) 8.3 X10^3/uL (2.0-7.7) H 05/28/20 06:55 Absolute Lymphs (auto) 0.31 X10^3/uL (0.83-4.51) L 05/28/20 06:55 Sodium 134 mmol/L (136-145) L 05/28/20 06:55 Potassium 3.0 mmol/L (3.5-5.1) L 05/26/20 19:42 Chloride 94 mmol/L (98-107) L 05/26/20 19:42 BUN 4 mg/dL (7-18) L 05/28/20 06:55 Creatinine 0.55 mg/dL (0.70-1.30) L 05/28/20 06:55 BUN/Creatinine Ratio 7.3 RATIO (10-20) L 05/28/20 06:55 Glucose 107 mg/dL (74-106) H 05/28/20 06:55 AST 45 U/L (15-37) H 05/28/20 06:55 Alkaline Phosphatase 119 U/L (45-117) H 05/27/20 06:30 Albumin 2.3 g/dL (3.2-5.0) L 05/28/20 06:55 Globulin 4.4 g/dL (2.2-4.2) H 05/28/20 06:55 Albumin/Globulin Ratio 0.5 RATIO (0.9-2.4) L 05/28/20 06:55 Lipase 29 U/L (73-393) L 05/26/20 19:42 - Assessment Food / Nutrition-Related History:: Has port - plan per surgery to start TPN for nutrition - given verbal order by Dr. Hernandez to order TPN. Continues w/ very minimal PO intake- only tolerated sips of clears today. C/o abd pain, nausea. S tates he weighed 175# in October 2019. [ End ] - Nutrition Diagnosis Problem / Etiology / Signs & Symptoms (PES):: Altered GI function r/t alteration in GI tract structure reported nausea, abd pain and need for TPN for adequate nutrition Evidence of Malnutrition Exists:: Yes Severe PCM:: Chronic Illness - Nutrition Intervention Nutrition Prescription:: Kcal:4106-8514 (30 kcal/kg). Pro:65-75g (1g/kg). Fluid: 4534-7545 (1mL/kcal). [ End ] - Food / Nutrient Delivery Interventions Summary of nutrition intervention:: Need to be cautious w/ TPN d/t possible issues w/ refeeding syndrome: Provide 15-25 kcal/kg/day x days 1-3, then increase to 30 neha/kg/day x day 3 = 969 - 1615 neha/ 65-75 gm pro/day. [ End ] Nutrition support ordered as / adjusted to:: 1 L 4.25%AA/10%dextrose to provide ~510 neha/ 42 gm pro/day. [ End ] Nutrition education provided?: No - MNT Monitoring Further MNT monitoring and evaluation required?: Yes MNT Follow-up in:: 1-2 days - please call if questions @ [phone]
[2020-05-29 13:42] VITALS: BMI 21.6
[2020-05-29] MEDS: Morphine 2 MG/ML Syringe IV ×2 (13:57→21:40)
[2020-05-29 14:00] VITALS: BP 167/85; PULSE 99; RESP 16; TEMP 37; O2SAT 99
[2020-05-29 21:37] VITALS: BP 156/91; PULSE 105; RESP 18; TEMP 36.8; O2SAT 97
[2020-05-29 23:10] LABS: Bedside Glucose 196 mg/dL (70-110)
--- NOTE | 2020-05-29 23:20 | PCM.PN.BLA ---
Progress Note With hyperglycemia with TPN. Start on low dose correction scale insulin. Check A1C. STROKE Vital Signs/Narrative: Vital Signs Temp Pulse Resp BP Pulse Ox 05/29/20 21:37 98.3 F 105 H 18 156/91 H 97
[2020-05-29] MEDS: Insulin Lispro 100 UNIT/ML INSULN.PEN SC (23:27)
[2020-05-30] VITALS (11 sets, daily range): BP systolic 131–162; BP diastolic 80–94; PULSE 93–108; RESP 16–20; TEMP 36.3–36.7; O2SAT 94–98
--- NOTE | 2020-05-30 01:11 | NURSING ---
pt called out reporting TPN is making his head feel like it's exploding and making him sick this rn at bedside and pt is demanding to be unhooked from TPN. Discussed importance of the nutrition for this pt given his condition and inability to take in P.O. pt states i need a break, i want it off until morning when the doctor comes in. SL pt's port. pt dry heaving. discussed other nausea medications with pt, pt declines. informed MD Agyepong that pt is refusing TPN and demanded to be unhooked from it and believes it is making him sick. MD came to pt's room and spoke with him about options for his nausea and pt declines. continue current treatment plan, per MD.
[2020-05-30 05:56] LABS: Bedside Glucose 133 mg/dL (70-110)
[2020-05-30 07:28] LABS: Absolute Lymphocyte Count 0.27 X10^3/uL (0.83-4.51); Absolute Neutrophil Count 12.4 X10^3/uL (2.0-7.7); Basophil# 0.02 X10^3/uL; Basophil% 0.1 % (0-1); Eosinophil# 0.01 X10^3/uL; Eosinophils% 0.1 % (0-5); Hematocrit 33.3 % (40-54); Hemoglobin 11.4 g/dL (13.0-16.5); Lymphocyte # 0.27 X10^3/ul (4.0); Mean Corp Hgb Conc 34.2 g/dL (32-36); Mean Corpuscular Hgb 31.9 pg (27.0-32.0); Mean Corpuscular Volume 93.3 fL (80-94); Monocyte# 1.01 X10^3/uL; Monocyte% 7.4 % (0-10); NRBC Flagged by Analyzer 0 % (0-5); Neutrophil # 12.35 X10^3/uL (2.7-7.7); POSITIVE DIFFERENTIAL YES; Platelet Count 339 K/mm3 (150-450); RBC Distribution Width CV 12.8 % (11.6-14.6); RBC Distribution Width SD 43.9 fl (35.1-43.9); Red Blood Count 3.57 M/mm3 (4.6-6.2); White Blood Count 13.7 K/mm3 (4.4-11.0)
[2020-05-30 07:31] LABS: Differential Indicated SCAN CRITERIA MET
[2020-05-30 07:48] LABS: ALB/GLOB Ratio 0.5 RATIO (0.9-2.4); AST(SGOT) 42 U/L (15-37); Alanine Aminotransfer ALT/SGPT 56 U/L (16-61); Albumin, Serum 2.3 g/dL (3.2-5.0); Alkaline Phosphatase 122 U/L (45-117); Anion Gap 9 (5-15); BUN 11 mg/dL (7-18); BUN/Creat Ratio 17.4 RATIO (10-20); Calcium,Total 8.9 mg/dL (8.5-10.1); Chloride 96 mmol/L (98-107); Creatinine, Serum 0.63 mg/dL (0.70-1.30); EST Glomerular Filtration Rate 134 mL/min (>60); Est Glom Filt Rate - Afr Amer 162 mL/min (>60); Globulin 4.9 g/dL (2.2-4.2); Glucose 142 mg/dL (74-106); Potassium 3.4 mmol/L (3.5-5.1); Protein, Total 7.2 g/dL (6.4-8.2); Sodium Level 131 mmol/L (136-145); Triglycerides 73 mg/dL
[2020-05-30 08:02] LABS: Atypical Lymphocyte 1+ %
[2020-05-30 08:04] LABS: Hemoglobin A1c 5.7 % (3.8-5.6)
[2020-05-30] MEDS: Ensure Clear 120 ML Liquid PO ×2 (09:05→17:05)
--- NOTE | 2020-05-30 09:28 | PN.SURG_ITS ---
Patient Problems: Active and Suspected Problems (Last Reviewed 05/27/20 @ 04:[address] Vinny Fuentes MD) Hypokalemia (Acute) Pancreas cancer (Acute) Hyponatremia (Acute) Abdominal pain (Acute) Subjective: No complaints of abdominal pain today. Was unable to tolerate the TPN felt very lightheaded short of breath which improved with them discontinuing it. Still unable to eat having nausea with just the smell of food. Objective: Abdomen is soft and nontender - Physical Exam Vitals/I&O's: Vital Signs Temp Pulse Resp BP Pulse Ox 97.5 F L 100 20 H 141/86 H 94 05/30/20 05:50 05/30/20 05:50 05/30/20 08:00 05/30/20 05:50 05/30/20 08:00 Oxygen Delivery Method Room Air Weight: 139 lb 15.896 oz Body Mass Index (BMI) 21.6 Finger Stick Blood Glucose 133 Intake and Output for Last 24 Hours 05/28/20 05/29/20 05/30/20 23:59 23:59 23:59 Intake Total 2286.67 / 2286.67 2068.34 / 2068.34 818.8 / 818.8 Output Total 1200 / 1200 Balance 1086.67 / 1086.67 2068.34 / 2068.34 818.8 / 818.8 Microbiology Past 72 Hours 05/27/20 01:00 Blood Culture (Wb) - Anticubital Left Blood Culture - Preliminary No growth in 48 hours. 05/27/20 01:12 Blood Culture (Wb) - Anticubital Right Blood Culture - Preliminary No growth in 48 hours. 05/28/20 14:15 Mucosa - Nose SARS-CoV-2 Antigen (Rapid) - Final Laboratory Results 05/29/20 23:05: POC Glucose 196 H 05/30/20 05:40: POC Glucose 133 H 05/30/20 06:19: WBC 13.7 H, RBC 3.57 L, Hgb 11.4 L, Hct 33.3 L, MCV 93.3, MCH 31.9, MCHC 34.2, RDW Std Deviation 43.9, RDW Coeff of [place] 12.8, Plt Count 339, MPV 9.0, Immature Gran % (Auto) 0.400, Neut % (Auto) 90.0 H, Lymph % (Auto) 2.0 L, [place] % (Auto) 7.4, Eos % (Auto) 0.1, Baso % (Auto) 0.1, Absolute Neuts (auto) 12.4 H, Absolute Lymphs (auto) 0.27 L, Nucleated RBC % 0, Atypical Lymphocytes 1+ 05/30/20 06:19: Sodium 131 L, Potassium 3.4 L, Chloride 96 L, Carbon Dioxide 26.0, Anion Gap 9, BUN 11, Creatinine 0.63 L, Estim Creat Clear Calc 65.50, Est GFR (MDRD) Af Amer 162, Est GFR (MDRD) Non-Af 134, BUN/Creatinine Ratio 17.4, Glucose 142 H, Calcium 8.9, Total Bilirubin 0.80, AST 42 H, ALT 56, Alkaline Phosphatase 122 H, Total Protein 7.2, Albumin 2.3 L, Globulin 4.9 H, Albumin/Globulin Ratio 0.5 L, Triglycerides 73 05/30/20 06:19: Hemoglobin A1c 5.7 H Current Medications Acetaminophen (Acetaminophen 325 Mg Tablet) 650 mg PO Q6H PRN PRN PRN Reason: Pain Score 1-10/Temp > 100.7 F Dextrose (Dextrose 50%-Water 25 Gm/50 Ml Disp.Syrin) 0 gm IV X1 PRN; Protocol PRN Reason: Hypoglycemia Glucagon (Glucagon 1 Mg/Ml Syringe) 1 mg IM .X1 PRN PRN Reason: Hypoglycemia Sodium Chloride () 250 mls @ 15 mls/hr IV .[id number] PRN PRN Reason: Saline Flush Sodium Chloride () 250 mls @ 15 mls/hr IV .[id number] PRN PRN Reason: Additional IVPB Infusion Pantoprazole Sodium 40 mg/ (Sodium Chloride) 110 mls @ 330 mls/hr IV Q24 [facility] Last Infusion: 05/29/20 10:45 Dose: Infused Documented by: Multivitamins 10 ml/ Chromium/Copper/Manganese/Seleni/Zn 1 ml/ Folic Acid 1 mg/ Amino Acids/Electrolytes/Dextrose 2,011 mls @ 84 mls/hr IV .[id number] [facility] Stop: 05/30/20 15:48 Last Infusion: 05/30/20 00:50 Dose: 0 mls/hr Documented by: Potassium Chloride/Dextrose/Sod Cl () 1,000 mls @ 100 mls/hr IV .Q10H [facility] Insulin Human Lispro (Insulin Lispro 100 Unit/Ml Insuln.Pen) 0 unit SC Q6 [facility]; Protocol Last Admin: 05/30/20 05:57 Dose: Not Given Documented by: Melatonin (Melatonin 3 Mg Tablet) 3 mg PO QHS PRN PRN PRN Reason: INSOMNIA Morphine Sulfate (Morphine 2 Mg/Ml Syringe) 2 mg IV Q3H PRN PRN PRN Reason: Pain Score 6-10 Last Admin: 05/29/20 21:40 Dose: 2 mg Documented by: Nutritional Formula (Lactose Free) (Ensure Clear 120 Ml Liquid) 120 ml PO 4X/DAY [facility] Last Admin: 05/30/20 09:05 Dose: 120 ml Documented by: Ondansetron HCl (Ondansetron 4 Mg/2 Ml Vial) 4 mg IV Q8H PRN PRN PRN Reason: NAUSEA/VOMITING Last Admin: 05/29/20 21:40 Dose: 4 mg Documented by: Pancrelipase (Creon 3,[address] Capsule) 1 capsule PO TIDCM [facility] Last Admin: 05/30/20 09:03 Dose: Not Given Documented by: Prochlorperazine Edisylate (Prochlorperazine 10 Mg/2 Ml Vial) 5 mg IV Q4H PRN PRN PRN Reason: NAUSEA/VOMITING Last Admin: 05/29/20 11:47 Dose: 5 mg Documented by: Senna/Docusate Sodium (Senna/Docusate Sodium 1 Tablet) 2 tablet PO BID PRN PRN PRN Reason: Constipation Sertraline HCl (Sertraline 50 Mg Tablet) 50 mg PO DAILY [facility] Last Admin: 05/29/20 10:15 Dose: Not Given Documented by: Sodium Chloride (0.9% Saline Lock 10 Ml Syringe) 10 - 40 ml IV UD PRN PRN Reason: SALINE FLUSH Last Admin: 05/29/20 21:40 Dose: 10 ml Documented by: Sodium Chloride (Sodium Chloride 0.65% 1 [place].Btl) 2 spray NASAL TID PRN PRN PRN Reason: NASAL DRYNESS Last Admin: 05/28/20 20:05 Dose: 2 spray Documented by: Medical Necessity - Tobacco Use Smoking Status: Never smoker Assessment/Plan All Active Problems (Last Reviewed 05/27/20 @ 04:[address] Vinny Fuentes MD) Hypokalemia (Acute) Pancreas cancer (Acute) Hyponatremia (Acute) Abdominal pain (Acute) Biliary obstruction (Resolved) In a precarious situation here. Patient's been without nutrition not quite a week. Not responding to antiemetic medications still having nausea and vomiting with just the simplest attempts of p.o. unsuccessful tolerating TPN not quite sure if this is a component of just how fast it was infused and will need to get looked into by nutrition on Sunday. More pressing situation is if he can tolerate TPN and he had no way of getting nutritional therapy he will need to be transferred out to a tertiary referral center for possible operation and placement of a jejunostomy tube. I do not think there is anything we can offer him here [facility]. He needs to be at a center where they actually do Whipple procedures. We will cancel small bowel follow-through for tomorrow.
--- NOTE | 2020-05-30 09:52 | PN_ITS ---
Patient Problems: Active and Suspected Problems (Last Reviewed 05/27/20 @ 04:[address] Vinny Fuentes MD) Hypokalemia (Acute) Pancreas cancer (Acute) Hyponatremia (Acute) Abdominal pain (Acute) Subjective: Was unable to tolerate TPN last night, it was running at 84 cc/h so slower than his IV fluids have been running at earlier which he tolerated just fine. Continues to be nauseated and not taking in any p.o. Vitals/I&O's: Vital Signs Temp Pulse Resp BP Pulse Ox 97.5 F L 100 20 H 141/86 H 94 05/30/20 05:50 05/30/20 05:50 05/30/20 08:00 05/30/20 05:50 05/30/20 08:00 Oxygen Delivery Method Room Air Weight: 139 lb 15.896 oz Body Mass Index (BMI) 21.6 Finger Stick Blood Glucose 133 Intake and Output for Last 24 Hours 05/28/20 05/29/20 05/30/20 23:59 23:59 23:59 Intake Total 2286.67 / 2286.67 2068.34 / 2068.34 818.8 / 818.8 Output Total 1200 / 1200 Balance 1086.67 / 1086.67 2068.34 / 2068.34 818.8 / 818.8 General: Alert, Oriented x3, Cooperative, No apparent distress HEENT: Atraumatic, PERRLA, EOMI, Normocephalic Oral: Moist Mucosa Neck: Supple, No JVD Lungs: Clear to auscultation, Normal air movement, No rhonchi, No wheeze, No rales Cardiovascular: Regular rate, Regular Rhythm, Normal S1, Normal S2, No murmurs Abdomen: Soft, Non Tender, Non-Distended, No Hepato-splenomegaly Extremities: No edema, Capillary Refill Less than 3 Seconds Skin: No rashes, No breakdown Neurological: Neuro grossly intact, Sensory exam intact to light touch and pain Psych/Mental Status: Appears apathetic and depressed Microbiology Past 72 Hours 05/27/20 01:00 Blood Culture (Wb) - Anticubital Left Blood Culture - Preliminary No growth in 48 hours. 05/27/20 01:12 Blood Culture (Wb) - Anticubital Right Blood Culture - Preliminary No growth in 48 hours. 05/28/20 14:15 Mucosa - Nose SARS-CoV-2 Antigen (Rapid) - Final Laboratory Results 05/29/20 23:05: POC Glucose 196 H 05/30/20 05:40: POC Glucose 133 H 05/30/20 06:19: WBC 13.7 H, RBC 3.57 L, Hgb 11.4 L, Hct 33.3 L, MCV 93.3, MCH 31.9, MCHC 34.2, RDW Std Deviation 43.9, RDW Coeff of [place] 12.8, Plt Count 339, MPV 9.0, Immature Gran % (Auto) 0.400, Neut % (Auto) 90.0 H, Lymph % (Auto) 2.0 L, [place] % (Auto) 7.4, Eos % (Auto) 0.1, Baso % (Auto) 0.1, Absolute Neuts (auto) 12.4 H, Absolute Lymphs (auto) 0.27 L, Nucleated RBC % 0, Atypical Lymphocytes 1+ 05/30/20 06:19: Sodium 131 L, Potassium 3.4 L, Chloride 96 L, Carbon Dioxide 26.0, Anion Gap 9, BUN 11, Creatinine 0.63 L, Estim Creat Clear Calc 65.50, Est GFR (MDRD) Af Amer 162, Est GFR (MDRD) Non-Af 134, BUN/Creatinine Ratio 17.4, Glucose 142 H, Calcium 8.9, Total Bilirubin 0.80, AST 42 H, ALT 56, Alkaline Phosphatase 122 H, Total Protein 7.2, Albumin 2.3 L, Globulin 4.9 H, Albumin/Globulin Ratio 0.5 L, Triglycerides 73 05/30/20 06:19: Hemoglobin A1c 5.7 H Current Medications Acetaminophen (Acetaminophen 325 Mg Tablet) 650 mg PO Q6H PRN PRN PRN Reason: Pain Score 1-10/Temp > 100.7 F Dextrose (Dextrose 50%-Water 25 Gm/50 Ml Disp.Syrin) 0 gm IV X1 PRN; Protocol PRN Reason: Hypoglycemia Glucagon (Glucagon 1 Mg/Ml Syringe) 1 mg IM .X1 PRN PRN Reason: Hypoglycemia Sodium Chloride () 250 mls @ 15 mls/hr IV .[id number] PRN PRN Reason: Saline Flush Sodium Chloride () 250 mls @ 15 mls/hr IV .[id number] PRN PRN Reason: Additional IVPB Infusion Pantoprazole Sodium 40 mg/ (Sodium Chloride) 110 mls @ 330 mls/hr IV Q24 [facility] Last Infusion: 05/29/20 10:45 Dose: Infused Documented by: Multivitamins 10 ml/ Chromium/Copper/Manganese/Seleni/Zn 1 ml/ Folic Acid 1 mg/ Amino Acids/Electrolytes/Dextrose 2,011 mls @ 84 mls/hr IV .[id number] [facility] Stop: 05/30/20 15:48 Last Infusion: 05/30/20 00:50 Dose: 0 mls/hr Documented by: Potassium Chloride/Dextrose/Sod Cl () 1,000 mls @ 100 mls/hr IV .Q10H [facility] Insulin Human Lispro (Insulin Lispro 100 Unit/Ml Insuln.Pen) 0 unit SC Q6 [facility]; Protocol Last Admin: 05/30/20 05:57 Dose: Not Given Documented by: Melatonin (Melatonin 3 Mg Tablet) 3 mg PO QHS PRN PRN PRN Reason: INSOMNIA Morphine Sulfate (Morphine 2 Mg/Ml Syringe) 2 mg IV Q3H PRN PRN PRN Reason: Pain Score 6-10 Last Admin: 05/29/20 21:40 Dose: 2 mg Documented by: Nutritional Formula (Lactose Free) (Ensure Clear 120 Ml Liquid) 120 ml PO 4X/DAY [facility] Last Admin: 05/30/20 09:05 Dose: 120 ml Documented by: Ondansetron HCl (Ondansetron 4 Mg/2 Ml Vial) 4 mg IV Q8H PRN PRN PRN Reason: NAUSEA/VOMITING Last Admin: 05/29/20 21:40 Dose: 4 mg Documented by: Pancrelipase (Creon 3,[address] Capsule) 1 capsule PO TIDCM [facility] Last Admin: 05/30/20 09:03 Dose: Not Given Documented by: Prochlorperazine Edisylate (Prochlorperazine 10 Mg/2 Ml Vial) 5 mg IV Q4H PRN PRN PRN Reason: NAUSEA/VOMITING Last Admin: 05/29/20 11:47 Dose: 5 mg Documented by: Senna/Docusate Sodium (Senna/Docusate Sodium 1 Tablet) 2 tablet PO BID PRN PRN PRN Reason: Constipation Sertraline HCl (Sertraline 50 Mg Tablet) 50 mg PO DAILY [facility] Last Admin: 05/29/20 10:15 Dose: Not Given Documented by: Sodium Chloride (0.9% Saline Lock 10 Ml Syringe) 10 - 40 ml IV UD PRN PRN Reason: SALINE FLUSH Last Admin: 05/29/20 21:40 Dose: 10 ml Documented by: Sodium Chloride (Sodium Chloride 0.65% 1 [place].Btl) 2 spray NASAL TID PRN PRN PRN Reason: NASAL DRYNESS Last Admin: 05/28/20 20:05 Dose: 2 spray Documented by: STROKE Vital Signs/Narrative: Vital Signs Resp Pulse Ox 05/30/20 08:00 20 H 94 Medical Necessity - Tobacco Use Smoking Status: Never smoker Assessment/Plan All Active Problems (Last Reviewed 05/27/20 @ 04:[address] Vinny Fuentes MD) Hypokalemia (Acute) Pancreas cancer (Acute) Hyponatremia (Acute) Abdominal pain (Acute) Biliary obstruction (Resolved) 1. Viral gastritis and dehydration/status post pancreatectomy about a month ago/hypokalemia/hyponatremia -White blood cell count is normalized -Refused TPN because he said it gave him a headache still not taking anything p.o. -Surgery will discuss whether or not they should proceed with a small bowel follow-through or plan for transfer to a tertiary care center that performs Whipple's on Sunday. -Continue with antinausea medications -Seroma on CT scan as expected after his pancreatectomy -Evaluated by PT and OT, for possible placement though he is hesitant about going to a correction facility though he does endorse being weak -Continue with Creon as well as PPI, I discussed with him that he needs to take his p.o. medications can help him with digestion and possibly his nausea 2. Depression -Refusing all attempts at assistance, refuses all medications offered DVT: Lovenox Inpatient E&M: 86525 Subs Hosp L2
--- NOTE | 2020-05-30 10:56 | CT_ITS ---
STUDY: CT ABDOMEN AND PELVIS WITH CONTRAST REASON FOR EXAM: Male, 69 years old. Intractable nausea/vomiting, 1 month post Whipple, eval for possible anastomotic leak. RADIATION DOSAGE (If Supplied By Facility): CTDIvol = ( 12.73 ) mGy, DLP = ( 521.02 ) mGycm TECHNIQUE: Transaxial images were obtained from the dome of the diaphragm to the symphysis pubis with oral contrast. Oral and amp; IV Gastrografin and amp; 100mL Isovue-370 was administered. Sagittal and coronal images were reconstructed. Individualized dose optimization techniques were used for this CT. COMPARISON: 05/26/2020 FINDINGS: There is atelectasis of the right lung base. The visualized portions of the heart are within normal limits. Minimal intrahepatic bile duct dilation although lesser amount as compared to the prior study. Normal gallbladder and extrahepatic biliary system. Normal spleen. Normal pancreas. Normal bilateral adrenal glands. Normal right kidney. Normal left kidney. Operative changes compatible with WHIPPLE procedure. No extraluminal contrast or pneumoperitoneum identified. Horseshoe-shaped fluid collection adjacent to the caudate lobe is smaller when compared to the prior study, extending to the pancreatic bed region. No dilated loops of small bowel. Moderate fecal retention of the colon. The appendix is visualized and appears normal. There is diffuse atherosclerotic calcification of the abdominal aorta, without a demonstrated aneurysm. Normal inferior vena cava. Normal retroperitoneum. Normal urinary bladder. Trace pelvic free fluid. Normal abdominal wall. No lytic or sclerotic bone lesions. There are degenerative changes of the lumbar spine. There are degenerative changes of the right more than left hip. CT/Abdomen/Pelvis WITH Contrast IMPRESSION: 1. No extraluminal contrast or pneumoperitoneum. Anastomotic leak/breakdown UNLIKELY. 2. Status post WHIPPLE. Decreased horseshoe fluid collection adjacent to the caudate head/pancreatic/surgical bed. Could represent postoperative biloma or seroma. 3. Decreased intrahepatic bile duct dilation. 4. Moderate fecal retention. Electronically Signed: Louis Marroquin MD ([place]) at 14:32 EST , Service support ,
[2020-05-30] MEDS: 0.9% Saline Lock 10 ML Syringe IV ×2 (12:20→14:23)
--- NOTE | 2020-05-30 12:29 | NURSING ---
[id number] Dr June called this nurse. new orders given-see JUN, CT abd/pelvis, restart TPN. Also requested Dr Spring to call Dr Cain. Genoveva Pendleton RN
--- NOTE | 2020-05-30 15:14 | NURSING ---
sent both Dr. Hernandez and Dr. June copy of CT results as they were faxed.
--- NOTE | 2020-05-30 16:29 | NURSING ---
1625 talked to pt about restarting TPN. Pt does not want to restart TPN. informed pt rate would be decreased. Pt does not want TPN, will inform Dr. Genoveva Gallego RN
[2020-05-30] MEDS: Senna/Docusate Sodium 1 Tablet 2 TABLET PO (17:06)
--- NOTE | 2020-05-30 17:09 | NURSING ---
[address] Hernandez's instructions on importance of TPN. Pt still refuses TPN. informed pt this nurse will start IVFS. pt understands Genoveva Gallego RN
[2020-05-31] VITALS (11 sets, daily range): BP systolic 146–160; BP diastolic 82–90; PULSE 81–99; RESP 18; TEMP 36.6–37.2; O2SAT 98–99
[2020-05-31] MEDS: 0.9% Saline Lock 10 ML Syringe IV ×2 (04:13→10:35)
--- NOTE | 2020-05-31 07:42 | PCM.PN.SRG ---
Patient Problems: Active and Suspected Problems (Last Reviewed 05/27/20 @ 04:[address] Vinny Fuentes MD) Hypokalemia (Acute) Pancreas cancer (Acute) Hyponatremia (Acute) Abdominal pain (Acute) Subjective: Patient evaluated resting restlessly in bed. Patient was noted to continuously moan and move his body throughout the interview. I had addressed this and he noted he was hot. Patient stated he did not want to try the TPN again yesterday due to having symptoms the night previously. He noted having high blood pressure, elevated pulse, and headache following 8 hours of TPN. He refused to try TPN at half the rate. He noted he had a little bit of mashed potatoes and eggs yesterday. He noted drinking the contrast did not help him with his diet yesterday. Patient states he has had minimal nausea. He notes very little abdominal discomfort in the left upper quadrant. - Physical Exam Vitals/I&O's: Vital Signs Temp Pulse Resp BP Pulse Ox 98.3 F 99 18 146/90 H 98 05/31/20 02:10 05/31/20 04:05 05/31/20 02:10 05/31/20 02:10 05/31/20 02:10 Oxygen Delivery Method Room Air Weight: 140 lb 3.424 oz Body Mass Index (BMI) 21.6 Finger Stick Blood Glucose 133 Intake and Output for Last 24 Hours 05/29/20 05/30/20 05/31/20 23:59 23:59 23:59 Intake Total 8.34 / 2068.34 1957.72 / 1957.72 868.33 / 868.33 Output Total 200 / 200 800 / 800 Balance 8.34 / 8.34 1757.72 / 1757.72 68.33 / 68.33 General: Alert, Oriented x3, Cooperative Abdomen: Bowel Sounds Present, Soft, Tender - minimally tender in the LUQ Psych/Mental Status: Anxious, Restless Microbiology Past 72 Hours 05/27/20 01:00 Blood Culture (Wb) - Anticubital Left Blood Culture - Preliminary No growth in 48 hours. 05/27/20 01:12 Blood Culture (Wb) - Anticubital Right Blood Culture - Preliminary No growth in 48 hours. 05/28/20 14:15 Mucosa - Nose SARS-CoV-2 Antigen (Rapid) - Final Laboratory Results 05/30/20 06:19: Atypical Lymphocytes 1+ 05/30/20 06:19: Sodium 131 L, Potassium 3.4 L, Chloride 96 L, Carbon Dioxide 26.0, Anion Gap 9, BUN 11, Creatinine 0.63 L, Estim Creat Clear Calc 65.50, Est GFR (MDRD) Af Amer 162, Est GFR (MDRD) Non-Af 134, BUN/Creatinine Ratio 17.4, Glucose 142 H, Calcium 8.9, Total Bilirubin 0.80, AST 42 H, ALT 56, Alkaline Phosphatase 122 H, Total Protein 7.2, Albumin 2.3 L, Globulin 4.9 H, Albumin/Globulin Ratio 0.5 L, Triglycerides 73 05/30/20 06:19: Hemoglobin A1c 5.7 H Current Medications Acetaminophen (Acetaminophen 325 Mg Tablet) 650 mg PO Q6H PRN PRN PRN Reason: Pain Score 1-10/Temp > 100.7 F Dextrose (Dextrose 50%-Water 25 Gm/50 Ml Disp.Syrin) 0 gm IV X1 PRN; Protocol PRN Reason: Hypoglycemia Glucagon (Glucagon 1 Mg/Ml Syringe) 1 mg IM .X1 PRN PRN Reason: Hypoglycemia Sodium Chloride () 250 mls @ 15 mls/hr IV .[id number] PRN PRN Reason: Saline Flush Sodium Chloride () 250 mls @ 15 mls/hr IV .[id number] PRN PRN Reason: Additional IVPB Infusion Last Infusion: 05/30/20 17:49 Dose: 0 mls/hr Documented by: Pantoprazole Sodium 40 mg/ (Sodium Chloride) 110 mls @ 330 mls/hr IV Q24 [facility] Last Infusion: 05/30/20 13:20 Dose: Infused Documented by: Erythromycin Lactobionate 250 (mg/ Sodium Chloride) 105 mls @ 100 mls/hr IV Q8 [facility] Last Infusion: 05/31/20 06:25 Dose: Infused Documented by: Multivitamins 10 ml/ Chromium/Copper/Manganese/Seleni/Zn 1 ml/ Folic Acid 1 mg/ Amino Acids/Electrolytes/Dextrose 2,011 mls @ 42 mls/hr IV .Q24H [facility] Stop: 05/31/20 15:47 Last Admin: 05/30/20 17:00 Dose: Not Given Documented by: Potassium Chloride/Dextrose/Sod Cl () 1,000 mls @ 100 mls/hr IV .Q10H [facility] Last Infusion: 05/31/20 06:25 Dose: 100 mls/hr Documented by: Insulin Human Lispro (Insulin Lispro 100 Unit/Ml Insuln.Pen) 0 unit SC Q6 [facility]; Protocol Last Admin: 05/31/20 05:05 Dose: Not Given Documented by: Melatonin (Melatonin 3 Mg Tablet) 3 mg PO QHS PRN PRN PRN Reason: INSOMNIA Nutritional Formula (Lactose Free) (Ensure Clear 120 Ml Liquid) 120 ml PO 4X/DAY [facility] Last Admin: 05/30/20 21:52 Dose: Not Given Documented by: Ondansetron HCl (Ondansetron 4 Mg/2 Ml Vial) 4 mg IV Q8H PRN PRN PRN Reason: NAUSEA/VOMITING Last Admin: 05/29/20 21:40 Dose: 4 mg Documented by: Pancrelipase (Creon 3,[address] Capsule) 1 capsule PO TIDCM [facility] Last Admin: 05/30/20 17:08 Dose: Not Given Documented by: Prochlorperazine Edisylate (Prochlorperazine 10 Mg/2 Ml Vial) 5 mg IV Q4H PRN PRN PRN Reason: NAUSEA/VOMITING Last Admin: 05/29/20 11:47 Dose: 5 mg Documented by: Senna/Docusate Sodium (Senna/Docusate Sodium 1 Tablet) 2 tablet PO BID PRN PRN PRN Reason: Constipation Last Admin: 05/30/20 17:06 Dose: 2 tablet Documented by: Sertraline HCl (Sertraline 50 Mg Tablet) 50 mg PO DAILY [facility] Last Admin: 05/30/20 11:50 Dose: Not Given Documented by: Sodium Chloride (0.9% Saline Lock 10 Ml Syringe) 10 - 40 ml IV UD PRN PRN Reason: SALINE FLUSH Last Admin: 05/31/20 04:13 Dose: 10 ml Documented by: Sodium Chloride (Sodium Chloride 0.65% 1 [place].Btl) 2 spray NASAL TID PRN PRN PRN Reason: NASAL DRYNESS Last Admin: 05/28/20 20:05 Dose: 2 spray Documented by: Medical Necessity - Tobacco Use Smoking Status: Never smoker Assessment/Plan All Active Problems (Last Reviewed 05/27/20 @ 04:[address] Vinny Fuentes MD) Hypokalemia (Acute) Pancreas cancer (Acute) Hyponatremia (Acute) Abdominal pain (Acute) Biliary obstruction (Resolved) I am following this patient in conjunction with Dr. Mantilla Impression: S/p Whipple for pancreatic cancer in [place]. Nausea, vomiting, lack of appetite. Etiology probable gastroparesis. Discussed patient with Dr. Mantilla Trial of regular vegetarian diet with Ensure clear If tolerates without nausea/vomiting, may be discharged Nutrition may need to discuss smaller more frequent meals. Will hold off on the TPN at this time. Inpatient E&M: 40792 Subs Hosp L2
--- NOTE | 2020-05-31 07:51 | PN_ITS ---
Patient Problems: Active and Suspected Problems (Last Reviewed 05/27/20 @ 04:[address] Vinny Fuentes MD) Hypokalemia (Acute) Pancreas cancer (Acute) Hyponatremia (Acute) Abdominal pain (Acute) Subjective: Patient overnight with continued various complaints including abdominal discomfort, flushed sensation, elevated blood pressures and pulse as well as headache following TPN initiation which was then discontinued and refused. Patient has tolerated oral intake and notes decreased nausea. He states that his emesis is primarily increased oral secretions causing him to cough these had no significantly recently witnessed emesis. Patient currently noting he feels improved this a.m. and is willing to trial a vegetarian, lactose-free diet per surgery recommendation. He is currently tolerated breakfast and understands that he would benefit from at least some small portion of meal intake with each meal around. Patient denies fevers, chills, chest pain or dyspnea. Objective: Physical Examination: General: awake, alert, oriented x 3 and cooperative, seated upright in the medical surgical bed, no acute distress. Skin: normal color, turgor, no icterus, cyanosis, resolving recent abdominal surgical incisions, well appearing. HEENT: AT/NC, EOMI, PERRLA, mildly dry MM. Lungs: Diminished breath sounds, greater bases, moderate effort, no rales, ronchi or wheezing. Heart: Regular rate and rhythm; no gallop, rub audible. Abdomen: soft, mild diffuse generalized discomfort but no rebound or guarding, worse in the left upper quadrant, no obvious distention, normal bowel sounds, see skin. Extremities: no cyanosis, clubbing, or edema. Neurological: patient awake, alert, oriented as noted; cognitive function intact; pupils equally reactive to light and accomodation; cranial nerves II-XII grossly normal, moving all 4 extremities, no focal deficits, strength mildly global decreased secondary to patient recent history, recent surgery and patient unwillingness to be more active. Psychiatric: affect appears flat, suspect underlying depression but patient has refused any interventions or treatments, no obvious anxiety feelings. Vitals/I&O's: Vital Signs Temp Pulse Resp BP Pulse Ox 98.3 F 99 18 146/90 H 98 05/31/20 02:10 05/31/20 04:05 05/31/20 02:10 05/31/20 02:10 05/31/20 02:10 Oxygen Delivery Method Room Air Weight: 140 lb 3.424 oz Body Mass Index (BMI) 21.6 Finger Stick Blood Glucose 133 Intake and Output for Last 24 Hours 05/29/20 05/30/20 05/31/20 23:59 23:59 23:59 Intake Total 2067.34 / 2067.34 1957.72 / 7.72 868.33 / 868.33 Output Total 200 / 200 800 / 800 Balance 8.34 / 8.34 1757.72 / 1757.72 68.33 / 68.33 Microbiology Past 72 Hours 05/27/20 01:00 Blood Culture (Wb) - Anticubital Left Blood Culture - Preliminary No growth in 48 hours. 05/27/20 01:12 Blood Culture (Wb) - Anticubital Right Blood Culture - Preliminary No growth in 48 hours. 05/28/20 14:15 Mucosa - Nose SARS-CoV-2 Antigen (Rapid) - Final Laboratory Results 05/30/20 06:19: Atypical Lymphocytes 1+ 05/30/20 06:19: Hemoglobin A1c 5.7 H 05/31/20 07:40: WBC Pending, RBC Pending, Hgb Pending, Hct Pending, MCV Pending, MCH Pending, MCHC Pending, RDW Std Deviation Pending, RDW Coeff of Nato Pending, Plt Count Pending, Neut % (Auto) Pending, Absolute Neuts (auto) Pending 05/31/20 07:40: Sodium Pending, Potassium Pending, Chloride Pending, Carbon Dioxide Pending, Anion Gap Pending, BUN Pending, Creatinine Pending, Est GFR (MDRD) Af Amer Pending, Est GFR (MDRD) Non-Af Pending, BUN/Creatinine Ratio Pending, Glucose Pending, Calcium Pending, Total Bilirubin Pending, AST Pending, ALT Pending, Alkaline Phosphatase Pending, Total Protein Pending, Albumin Pending Current Medications Acetaminophen (Acetaminophen 325 Mg Tablet) 650 mg PO Q6H PRN PRN PRN Reason: Pain Score 1-10/Temp > 100.7 F Dextrose (Dextrose 50%-Water 25 Gm/50 Ml Disp.Syrin) 0 gm IV X1 PRN; Protocol PRN Reason: Hypoglycemia Glucagon (Glucagon 1 Mg/Ml Syringe) 1 mg IM .X1 PRN PRN Reason: Hypoglycemia Sodium Chloride () 250 mls @ 15 mls/hr IV .[id number] PRN PRN Reason: Saline Flush Sodium Chloride () 250 mls @ 15 mls/hr IV .[id number] PRN PRN Reason: Additional IVPB Infusion Last Infusion: 05/30/20 17:49 Dose: 0 mls/hr Documented by: Pantoprazole Sodium 40 mg/ (Sodium Chloride) 110 mls @ 330 mls/hr IV Q24 [facility] Last Infusion: 05/30/20 13:20 Dose: Infused Documented by: Erythromycin Lactobionate 250 (mg/ Sodium Chloride) 105 mls @ 100 mls/hr IV Q8 [facility] Last Infusion: 05/31/20 06:25 Dose: Infused Documented by: Multivitamins 10 ml/ Chromium/Copper/Manganese/Seleni/Zn 1 ml/ Folic Acid 1 mg/ Amino Acids/Electrolytes/Dextrose 2,011 mls @ 42 mls/hr IV .Q24H [facility] Stop: 05/31/20 15:47 Last Admin: 05/30/20 17:00 Dose: Not Given Documented by: Potassium Chloride/Dextrose/Sod Cl () 1,000 mls @ 100 mls/hr IV .Q10H [facility] Last Infusion: 05/31/20 06:25 Dose: 100 mls/hr Documented by: Insulin Human Lispro (Insulin Lispro 100 Unit/Ml Insuln.Pen) 0 unit SC Q6 [facility]; Protocol Last Admin: 05/31/20 05:05 Dose: Not Given Documented by: Melatonin (Melatonin 3 Mg Tablet) 3 mg PO QHS PRN PRN PRN Reason: INSOMNIA Nutritional Formula (Lactose Free) (Ensure Clear 120 Ml Liquid) 120 ml PO 4X/DAY [facility] Last Admin: 05/30/20 21:52 Dose: Not Given Documented by: Ondansetron HCl (Ondansetron 4 Mg/2 Ml Vial) 4 mg IV Q8H PRN PRN PRN Reason: NAUSEA/VOMITING Last Admin: 05/29/20 21:40 Dose: 4 mg Documented by: Pancrelipase (Creon 3,[address] Capsule) 1 capsule PO TIDCM [facility] Last Admin: 05/30/20 17:08 Dose: Not Given Documented by: Prochlorperazine Edisylate (Prochlorperazine 10 Mg/2 Ml Vial) 5 mg IV Q4H PRN PRN PRN Reason: NAUSEA/VOMITING Last Admin: 05/29/20 11:47 Dose: 5 mg Documented by: Senna/Docusate Sodium (Senna/Docusate Sodium 1 Tablet) 2 tablet PO BID PRN PRN PRN Reason: Constipation Last Admin: 05/30/20 17:06 Dose: 2 tablet Documented by: Sertraline HCl (Sertraline 50 Mg Tablet) 50 mg PO DAILY [facility] Last Admin: 05/30/20 11:50 Dose: Not Given Documented by: Sodium Chloride (0.9% Saline Lock 10 Ml Syringe) 10 - 40 ml IV UD PRN PRN Reason: SALINE FLUSH Last Admin: 05/31/20 04:13 Dose: 10 ml Documented by: Sodium Chloride (Sodium Chloride 0.65% 1 [place].Btl) 2 spray NASAL TID PRN PRN PRN Reason: NASAL DRYNESS Last Admin: 05/28/20 20:05 Dose: 2 spray Documented by: STROKE Vital Signs/Narrative: Vital Signs Pulse 05/31/20 04:05 99 Medical Necessity - Tobacco Use Smoking Status: Never smoker Assessment/Plan All Active Problems (Last Reviewed 05/27/20 @ 04:[address] Vinny Fuentes MD) Hypokalemia (Acute) Pancreas cancer (Acute) Hyponatremia (Acute) Abdominal pain (Acute) Biliary obstruction (Resolved) The patient is a 69 y/o M w/ PMHx: Hx TIA, Hx carotid stenosis, Hx chronic L sided hearing loss, Pancreatic cancer s/p recent Whipple at [facility] ~ 1 month prior who presented to the [facility] ED on 05/27/20 with history of persistent nausea and occasional emesis although describes increased oral secretions as primary source with some loose stools ongoing x2 days with inability to care for self and some intractable abdominal pain following recent surgery prompting ED evaluation. 1. Pancreatic cancer with recent Whipple with intractable nausea, emesis and poor oral intake with failure to thrive in adult: Patient with surgery at [facility] in [place] with robotic pancreatic intervention 04/26/2020, admitted secondary to failure to thrive with poor oral intake and reported nausea and emesis, initially attempted TPN however this has failed this patient significant side effects, often picking and choosing what interventions he is amenable to, general surgery consulted and following, repeat CT of the abdomen and pelvis upon presentation and most recently 05/30/2020 with no extraluminal contrast or pneumoperitoneum with anastomotic leak or breakdown considered very unlikely wi th evidence status post Whipple with decreased horseshoe fluid collection adjacent to the caudate head/pancreatic/surgical bed possibly postoperative bilioma or seroma with decreased intrahepatic bile duct dilatation and noted moderate fecal retention. Given patient current presentation and often unwillingness to perform recommended medical interventions felt transfer would not benefit patient and eventually he became willing on 05/31/2020 to trial oral intake specifically low-fat, low-cholesterol, vegetarian and lactose free diet which she is tolerated through the day. If patient continues to have appropriate oral intake would encourage continuation of this diet with possible discharge 06/01/2020 pending reevaluation. We will also continue patient erythromycin IV as well as Protonix IV with need for oral transition if clinically continued to improve and possible to discharge 06/01/2020. We will continue as needed antiemetic and pain regimen. We will continue patient Creon additionally. 2. Anxiety and depression, uncontrolled: Contributing to likely current presentation and failure to thrive as noted #1, started on Zoloft however patient has been intermittently refusing this medication, will encourage continued intake at discharge and encourage follow-up therapy. 3. Hyperglycemia: Patient with intermittently elevated blood sugars, hemoglobin A1c obtained and noted to be 5.7%, given current presentation with #1 we will continue broadened allowed diet but will encourage close follow-up especially given Whipple status with primary care physician to monitor hemoglobin A1c is currently in the prediabetic stage. 4. Hyponatremia, hypovolemic: Admission sodium 130, likely secondary to poor oral intake and questionable GI losses, judiciously hydrated, oral intake initiated and currently successful, repeat 05/31/2020 sodium 133, continue to monitor. 5. Hypokalemia: Admission K+ 3.2, supplementation given, repeat level in AM. 6. Elevated LFTs: Patient LFTs have increased through admission, admission 05/26/2020 AST/ALT 22/44, alk phos 124, increased 05/31/2020 2 total bilirubin 0.8, AST/ALT 169/139, alk phos 133, general surgery following, CT abdomen pelvis upon presentation and repeat 05/31/2020 as noted, continue to trend CMP and appreciate surgery input. 7. Elevated BP without hypertensive diagnosis: Patient with elevated blood pressures throughout admission above goal, given prediabetic status will attempt addition of low-dose DYLON inhibitor with continued close monitoring, as needed hydralazine. 8. History of prostate cancer: Patient status post radiation, surgery and chemotherapy, resolved and considered in remission. 9. Chronic anemia: Admission hemoglobin 12.7, 05/31/2020 hemoglobin 10.6, MCV normal, will continue to closely monitor, did have recent extensive surgery, encourage follow-up outpatient with oncology. 10. History of TIA and carotid stenosis: We will continue aspirin therapy, not on statin and given elevated LFTs and recent interventions will defer, BP as above goal therefore will initiate oral regimen with continue as needed agents. 11. DVT prophylaxis: radha Caban. Inpatient E&M: [id number] [facility] L3
[2020-05-31 07:52] LABS: Absolute Lymphocyte Count 0.37 X10^3/uL (0.83-4.51); Absolute Neutrophil Count 8.7 X10^3/uL (2.0-7.7); Basophil# 0.01 X10^3/uL; Basophil% 0.1 % (0-1); Eosinophil# 0.05 X10^3/uL; Eosinophils% 0.5 % (0-5); Hemoglobin 10.6 g/dL (13.0-16.5); Lymphocyte # 0.37 X10^3/ul (4.0); Lymphocyte % 3.7 % (19-41); Mean Corp Hgb Conc 35.3 g/dL (32-36); Mean Corpuscular Hgb 32.2 pg (27.0-32.0); Mean Corpuscular Volume 91.2 fL (80-94); Mean Platelet Vol. 8.7 fl (6.2-12.0); Monocyte# 0.83 X10^3/uL; Monocyte% 8.3 % (0-10); NRBC Flagged by Analyzer 0 % (0-5); Neutrophil # 8.69 X10^3/uL (2.7-7.7); Neutrophil % 86.8 % (47-70); POSITIVE DIFFERENTIAL YES; Platelet Count 311 K/mm3 (150-450); RBC Distribution Width CV 12.6 % (11.6-14.6); RBC Distribution Width SD 42.2 fl (35.1-43.9); Red Blood Count 3.29 M/mm3 (4.6-6.2)
[2020-05-31 07:53] LABS: Differential Indicated SCAN CRITERIA MET
[2020-05-31 08:08] LABS: ALB/GLOB Ratio 0.4 RATIO (0.9-2.4); AST(SGOT) 169 U/L (15-37); Alanine Aminotransfer ALT/SGPT 139 U/L (16-61); Alkaline Phosphatase 133 U/L (45-117); Anion Gap 8 (5-15); BUN 7 mg/dL (7-18); BUN/Creat Ratio 12.2 RATIO (10-20); Calcium,Total 8.3 mg/dL (8.5-10.1); Chloride 99 mmol/L (98-107); Creatinine, Serum 0.57 mg/dL (0.70-1.30); EST Glomerular Filtration Rate 150 mL/min (>60); Est Glom Filt Rate - Afr Amer 182 mL/min (>60); Estimated Creatinine Clearance 63.57 ml/min; Globulin 4.6 g/dL (2.2-4.2); Glucose 141 mg/dL (74-106); Potassium 3.2 mmol/L (3.5-5.1); Protein, Total 6.6 g/dL (6.4-8.2); Sodium Level 133 mmol/L (136-145)
[2020-05-31 08:11] LABS: Hypochromasia RARE; Platelet Estimate ADEQUATE (ADEQ)
[2020-05-31] MEDS: Creon 3,000 unit DR Capsule 1 CAP PO ×2 (09:44→12:57)
[2020-05-31] MEDS: Ensure Clear 120 ML Liquid PO ×3 (09:48→17:25)
[2020-05-31] MEDS: Ondansetron 4 MG/2 ML Vial IV ×2 (10:34→20:24)
--- NOTE | 2020-05-31 13:58 | CASEMGMT ---
Addendum entered by Leti Tucker 05/31/20 14:33: SW in to speak with pt. SW introduced self and role at [facility]. Pt is alert and orientated. Pt states I just got done talking to Oscar but pt is agreeable to speaking to this worker again. Pt states that about a year ago his second left him. Pt states that he was to his first and had his two sons with her. Pt states that the relationship with his first is ok. Pt states that about seven years ago he got to his second . Pt states his second was younger than him and had a four year old daughter. Pt states that he helped her get out of a bad relationship with her then . Pt states that he was close with her four year daughter and would go to her soccer games and school events. Pt states he thought the world of his second . Pt states that his second all of sudden up and left him. Pt states his second 's son came and got her one night and she was gone. 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 SW explored with pt about how he not only lost the relationship with his second but also lost relationships with her daughter and the rest of her family. Pt states he still talks to his ex-'s parents and son in law. Pt states soon after his left, about a year to the day, he was diagnosed with pancreatic cancer. Pt states that from September-December he was on chemo. Pt states that he then went to [facility] to get a second opinion as [facility] in the [facility]. Pt states that in January he was scheduled to have surgery but instead spent three weeks in [place] having radiation treatment. Pt states that he recently had the Whipple Procedure and is still recovering from it. Pt states he had only been home a couple weeks and then had to come to [facility]. Pt states he had nausea and vomiting and was dehydrated and his electrolytes were off. Pt states if I had to do the surgery over again, I wouldn't. Pt states he is being told now though that he is Cancer free at this time. Pt states it can always come back, but right now I am cancer free. SW offered support to pt. SW spoke with pt regarding mental health. Pt denied having been diagnosed with Anxiety or Depression. SW completed PHQ-9 with pt. Pt scored 13 which is Moderate on Depression Scale. SW spoke with pt regarding counseling and medications. Pt states he was offered antidepressants but doesn't believe in them. Pt denied any history and current suicidal thoughts/plans/ideations. Pt states his neighbor is a counselor and he spoke to him a lot last Summer and may speak to him again. SW offered to provide pt with counseling resources and Cancer Support group resources and pt denied. Pt states he used to attend [facility] in [place] and there was a new voodoo that is by his home and he may start going there. Pt states he has been not wanting to go due to COVID but again states he may start going again. Pt states he doesn't believe in spiritism but does believe in relationship with Brock Bowens. Pt states I want to live as long as the world lets me. Support System: Pt states that he has two sons, one that lives next door to him and one that lives in [place]. Pt states he talks daily to the son that lives in [place] and he was the son that went to [place] with him for surgery. Pt states he also has three grandchildren. Pt states he will sometimes talk to his grandchildren and he will see them a couple times a year. Pt also mentioned his neighbor and voodoo being good supports for him as well. Coping Skills. Pt states he used to like to Watch TV, go out to eat and liked to watch High School Basketball. Pt states that his one son coaches basketball and his one grandchild plays basketball. SW spent much time with pt, offering support to pt. Pt with flat affect and minimal eye contact. Pt is able to identify support systems and coping skills. Pt is future thinking, able to state he has a relationship with Brock Bowens. Pt plans on starting to talk to his neighbor again, who is a counselor, and plans to start going back to voodoo. Pt denied additional needs or concerns at this time. Leti Tucker MSW, [employer]ACHINE [employer]EDER Original Note: Social Work Note SW received consult for recent divorce, recent pancreatic cancer, recent Whipple, limited support system. SW attempted to meet with pt, Internal Control Manager is currently with pt. SW will attempt again to meet with pt as time allows. Leti Tucker MSW, [employer] MACHINE FEEDER
--- NOTE | 2020-05-31 14:45 | CHAPLAIN ---
Type of Pastoral Visit _x__ Initial Visit ___ Follow-up Visit ___ On-call Visit ___ General Patient Visit ___ Spiritual Assessment ___ Family Conference ___ Bereavement ___ Rapid Response ___ Code Blue ___ Other (describe below) Pastoral Care Referral From ___ Patient ___ Family _x__ Nurse ___ Physician ___ Crystal Gazer ___ Refrigeration Engineer ___ Other (describe below) Sacrament/Intervention _x__ Active listening ___ Anointing ___ Latter-Day ___ Bereavement ___ Communion _x__ Rama exploration ___ _x__ Life review _x__ Prayer ___ Reconciliation ___ Sacrament of Sick _x__ Supportive presence ___ Wedding ___ Other (describe below) Pastoral Comments support recommended by primary RN; met with patient who tells his current situation and his review of life; pt is tearful throughout the conversation; pt had recent cancer surgery but has had difficulty since the surgery; pt spouse left him one year to the day before his cancer diagnosis; pt has one son that lives locally and one son that lives out of state; pt states that his support is rama in the [employer]; pt welcomes the support of the comparator operator and the time for talking about it and prayer; pt would benefit from further visits
[2020-05-31] MEDS: Lisinopril 5 MG Tablet PO (17:25)
[2020-05-31] MEDS: MELATONIN 3 MG TABLET PO (22:26)
[2020-06-01 03:14] VITALS: PULSE 88; RESP 18; TEMP 36.9; O2SAT 98
[2020-06-01] MEDS: proCHLORPERazine 10 MG/2 ML Vial 5 MG IV (03:23)
[2020-06-01 03:29] VITALS: PULSE 86
[2020-06-01] MEDS: Enoxaparin 40 MG/0.4 ML Syringe SC (05:28)
[2020-06-01 06:38] LABS: Absolute Lymphocyte Count 0.32 X10^3/uL (0.83-4.51); Absolute Neutrophil Count 6.2 X10^3/uL (2.0-7.7); Basophil# 0.01 X10^3/uL; Basophil% 0.1 % (0-1); Eosinophil# 0.08 X10^3/uL; Eosinophils% 1.1 % (0-5); Hematocrit 28.8 % (40-54); Hemoglobin 9.8 g/dL (13.0-16.5); Lymphocyte # 0.32 X10^3/ul (4.0); Lymphocyte % 4.4 % (19-41); Mean Corpuscular Hgb 31.6 pg (27.0-32.0); Mean Corpuscular Volume 92.9 fL (80-94); Mean Platelet Vol. 8.7 fl (6.2-12.0); Monocyte% 9.5 % (0-10); NRBC Flagged by Analyzer 0 % (0-5); Neutrophil # 6.16 X10^3/uL (2.7-7.7); Neutrophil % 84.1 % (47-70); POSITIVE DIFFERENTIAL YES; Platelet Count 278 K/mm3 (150-450); RBC Distribution Width CV 13.1 % (11.6-14.6); RBC Distribution Width SD 44.4 fl (35.1-43.9); White Blood Count 7.3 K/mm3 (4.4-11.0)
[2020-06-01 06:39] LABS: Differential Indicated SCAN CRITERIA MET
[2020-06-01 07:00] VITALS: PULSE 83
[2020-06-01 07:05] LABS: ALB/GLOB Ratio 0.5 RATIO (0.9-2.4); AST(SGOT) 174 U/L (15-37); Alanine Aminotransfer ALT/SGPT 181 U/L (16-61); Alkaline Phosphatase 144 U/L (45-117); Anion Gap 6 (5-15); BUN 4 mg/dL (7-18); Calcium,Total 8.3 mg/dL (8.5-10.1); Chloride 101 mmol/L (98-107); Creatinine, Serum 0.57 mg/dL (0.70-1.30); EST Glomerular Filtration Rate 150 mL/min (>60); Est Glom Filt Rate - Afr Amer 181 mL/min (>60); Estimated Creatinine Clearance 63.57 ml/min; Globulin 4.4 g/dL (2.2-4.2); Glucose 134 mg/dL (74-106); Potassium 2.9 mmol/L (3.5-5.1); Protein, Total 6.4 g/dL (6.4-8.2); Sodium Level 133 mmol/L (136-145)
[2020-06-01 07:16] VITALS: O2SAT 97
--- NOTE | 2020-06-01 07:19 | PN_ITS ---
Patient Problems: Active and Suspected Problems (Last Reviewed 05/27/20 @ 04:[address] Vinny Fuentes MD) Hypokalemia (Acute) Pancreas cancer (Acute) Hyponatremia (Acute) Abdominal pain (Acute) Vitals/I&O's: Vital Signs Temp Pulse Resp BP Pulse Ox 98.5 F 86 18 151/82 H 98 06/01/20 03:14 06/01/20 03:29 06/01/20 03:14 05/31/20 22:11 06/01/20 03:14 Oxygen Delivery Method Room Air Weight: 138 lb 3.677 oz Body Mass Index (BMI) 21.6 Finger Stick Blood Glucose 133 Intake and Output for Last 24 Hours 05/30/20 05/31/20 06/01/20 23:59 23:59 23:59 Intake Total 1957.72 / 1957.72 3243.33 / 3243.33 878.33 / 878.33 Output Total 200 / 200 800 / 800 Balance 1757.72 / 1757.72 2443.33 / 2443.33 878.33 / 878.33 Microbiology Past 72 Hours 05/27/20 01:00 Blood Culture (Wb) - Anticubital Left Blood Culture - Preliminary No growth in 48 hours. 05/27/20 01:12 Blood Culture (Wb) - Anticubital Right Blood Culture - Preliminary No growth in 48 hours. Laboratory Results 05/31/20 07:40: WBC 10.0, RBC 3.29 L, Hgb 10.6 L, Hct 30.0 L, MCV 91.2, MCH 32.2 H, MCHC 35.3, RDW Std Deviation 42.2, RDW Coeff of Nato 12.6, Plt Count 311, MPV 8.7, Immature Gran % (Auto) 0.600, Neut % (Auto) 86.8 H, Lymph % (Auto) 3.7 L, Eddy % (Auto) 8.3, Eos % (Auto) 0.5, Baso % (Auto) 0.1, Absolute Neuts (auto) 8.7 H, Absolute Lymphs (auto) 0.37 L, Nucleated RBC % 0, Platelet Estimate ADEQU ATE, Hypochromasia RARE 05/31/20 07:40: Sodium 133 L, Potassium 3.2 L, Chloride 99, Carbon Dioxide 26.0, Anion Gap 8, BUN 7, Creatinine 0.57 L, Estim Creat Clear Calc 63.57, Est GFR (MDRD) Af Amer 182, Est GFR (MDRD) Non-Af 150, BUN/Creatinine Ratio 12.2, Glucose 141 H, Calcium 8.3 L, Total Bilirubin 0.80, AST 169 H, ALT 139 H, Alkaline Phosphatase 133 H, Total Protein 6.6, Albumin 2.0 L, Globulin 4.6 H, Albumin/Globulin Ratio 0.4 L 06/01/20 06:20: WBC 7.3, RBC 3.10 L, Hgb 9.8 L, Hct 28.8 L, MCV 92.9, MCH 31.6, MCHC 34.0, RDW Std Deviation 44.4 H, RDW Coeff of Nato 13.1, Plt Count 278, MPV 8.7, Immature Gran % (Auto) 0.800, Neut % (Auto) 84.1 H, Lymph % (Auto) 4.4 L, Eddy % (Auto) 9.5, Eos % (Auto) 1.1, Baso % (Auto) 0.1, Absolute Neuts (auto) 6.2, Absolute Lymphs (auto) 0.32 L, Nucleated RBC % 0 06/01/20 06:20: Sodium 133 L, Potassium 2.9 L, Chloride 101, Carbon Dioxide 26.0, Anion Gap 6, BUN 4 L, Creatinine 0.57 L, Estim Creat Clear Calc 63.57, Est GFR (MDRD) Af Amer 181, Est GFR (MDRD) Non-Af 150, BUN/Creatinine Ratio 7.0 L, Glucose 134 H, Calcium 8.3 L, Total Bilirubin 0.70, AST 174 H, ALT 181 H, Alkaline Phosphatase 144 H, Total Protein 6.4, Albumin 2.0 L, Globulin 4.4 H, Albumin/Globulin Ratio 0.5 L Current Medications Acetaminophen (Acetaminophen 325 Mg Tablet) 650 mg PO Q6H PRN PRN PRN Reason: Pain Score 1-10/Temp > 100.7 F Dextrose (Dextrose 50%-Water 25 Gm/50 Ml Disp.Syrin) 0 gm IV X1 PRN; Protocol PRN Reason: Hypoglycemia Enoxaparin Sodium (Enoxaparin 40 Mg/0.4 Ml Syringe) 40 mg SC DAILY@0600 [facility] Last Admin: 02/09/21 05:28 Dose: 40 mg Documented by: Glucagon (Glucagon 1 Mg/Ml Syringe) 1 mg IM .X1 PRN PRN Reason: Hypoglycemia Hydralazine HCl (Hydralazine 20 Mg/Ml Vial) 10 mg IV Q4H PRN PRN PRN Reason: SBP > 160 Sodium Chloride () 250 mls @ 15 mls/hr IV .[id number] PRN PRN Reason: Saline Flush Sodium Chloride () 250 mls @ 15 mls/hr IV .[id number] PRN PRN Reason: Additional IVPB Infusion Last Infusion: 05/30/20 17:49 Dose: 0 mls/hr Documented by: Pantoprazole Sodium 40 mg/ (Sodium Chloride) 110 mls @ 330 mls/hr IV Q24 [facility] Last Infusion: 05/31/20 10:04 Dose: Infused Documented by: Erythromycin Lactobionate 250 (mg/ Sodium Chloride) 105 mls @ 100 mls/hr IV Q8 [facility] Last Infusion: 06/01/20 06:31 Dose: Infused Documented by: Potassium Chloride/Dextrose/Sod Cl () 1,000 mls @ 100 mls/hr IV .Q10H [facility] Last Infusion: 06/01/20 06:31 Dose: 100 mls/hr Documented by: Lisinopril (Lisinopril 5 Mg Tablet) 5 mg PO DAILY [facility] Melatonin (Melatonin 3 Mg Tablet) 3 mg PO QHS PRN PRN PRN Reason: INSOMNIA Last Admin: 05/31/20 22:26 Dose: 3 mg Documented by: Nutritional Formula (Lactose Free) (Ensure Clear 120 Ml Liquid) 120 ml PO 4X/DAY [facility] Last Admin: 05/31/20 22:11 Dose: Not Given Documented by: Ondansetron HCl (Ondansetron 4 Mg/2 Ml Vial) 4 mg IV Q8H PRN PRN PRN Reason: NAUSEA/VOMITING Last Admin: 05/31/20 20:24 Dose: 4 mg Documented by: Pancrelipase (Creon 3,[address] Capsule) 1 capsule PO TIDCM [facility] Last Admin: 05/31/20 18:19 Dose: Not Given Documented by: Potassium Chloride (Potassium Chloride 20 Meq Tablet) 40 meq PO X1 ONE Stop: 06/01/20 07:19 Prochlorperazine Edisylate (Prochlorperazine 10 Mg/2 Ml Vial) 5 mg IV Q4H PRN PRN PRN Reason: NAUSEA/VOMITING Last Admin: 06/01/20 03:23 Dose: 5 mg Documented by: Senna/Docusate Sodium (Senna/Docusate Sodium 1 Tablet) 2 tablet PO BID PRN PRN PRN Reason: Constipation Last Admin: 05/30/20 17:06 Dose: 2 tablet Documented by: Sertraline HCl (Sertraline 50 Mg Tablet) 50 mg PO DAILY [facility] Last Admin: 05/31/20 09:55 Dose: Not Given Documented by: Sodium Chloride (0.9% Saline Lock 10 Ml Syringe) 10 - 40 ml IV UD PRN PRN Reason: SALINE FLUSH Last Admin: 05/31/20 10:35 Dose: 10 ml Documented by: Sodium Chloride (Sodium Chloride 0.65% 1 [place].Btl) 2 spray NASAL TID PRN PRN PRN Reason: NASAL DRYNESS Last Admin: 05/28/20 20:05 Dose: 2 spray Documented by: STROKE Vital Signs/Narrative: Vital Signs Pulse 06/01/20 03:29 86 Medical Necessity - Tobacco Use Smoking Status: Never smoker Assessment/Plan All Active Problems (Last Reviewed 05/27/20 @ 04:[address] Vinny Fuentes MD) Hypokalemia (Acute) Pancreas cancer (Acute) Hyponatremia (Acute) Abdominal pain (Acute) Biliary obstruction (Resolved)
[2020-06-01] MEDS: Creon 3,000 unit DR Capsule 1 CAP PO ×2 (08:41→12:15)
--- NOTE | 2020-06-01 08:44 | PCM.DC ---
- Discharge Diagnoses Current Active Problems: Current Active and Chronic Problems (Last Reviewed 05/27/20 @ 04:[address] Vinny Fuentes MD) 1. Pancreatic cancer with recent Whipple with intractable nausea primarily, rare emesis with poor oral intake with failure to thrive in adult, complicated in large part by Depression 2. Anxiety and depression, uncontrolled 3. Hyperglycemia with Prediabetes mellitus (HgbA1c 5.7%) 4. Hyponatremia, hypovolemic 5. Hypokalemia 6. Elevated LFTs, possible secondary to recent surgery (No acute findings on CT A/P, Surgery recommended continued follow-up of profile with PCP) 7. Elevated BP without hypertensive diagnosis 8. History of prostate cancer 9. Chronic anemia 10. History of TIA and carotid stenosis You will use the following diet at home:: Other - Surgery recommends continued vegetarian diet with avoidance of lactose products. Also recommend consideration ADA given rising HgBA1c. We encourage routine meals and recommend that you eat a small portion of each meals even if you do not have an appetite. Your food should be the consistency of: Regular Your liquids should be the consistency of: Regular/Thin Discharge Activity: - - Encourage regular movement and activity. Please be out of bed for all meals. We recommend you walk at least around your house several times a day. Please continue usage of your incentive spirometer 10x/hr 7a-7p. Call your doctor if your incision/area has: Continuous Slow Oozing, Sudden Increased Bleeding, Increased Pain/ Swelling, Increased Redness, Foul Smelling Discharge, Swelling at the incision site Call your doctor if you observe: Fever of 101 or Higher, Inability to urinate, Inability to have a bowel movement, Shortness of breath, Dizziness, Chest pain, Uncontrolled pain, - - Recurrent intractable emesis of your actual meals, not saliva. Instructions: What Can Cause Depression?, Counseling for Depression, Depression: Tips to Help Yourself, Know the Signs and Symptoms of Depression, Selective Serotonin Reuptake Inhibitors, Oncology: Controlling Nausea and Vomiting, Prediabetes Additional Instructions: Please continue to trend your liver panel with your primary care physician at follow-up. Per discussion with Surgery your CT A/P with oral and IV contrast does not show any concerning findings with your liver at this time and the duct appears appropriate. Your bilirubin remained normal, only your LFTs and alk phos elevated mildly. Please assure your continue to closely follow-up with your surgeon, PCP as well as Oncology. WE STRONGLY recommend you take the sertraline regimen and undergo routine counseling for depression as we believe this is in part affecting your oral intake and ability for you to care for your self at home. This medication may be increased incrementally per your primary care physician (PCP) at follow-up. Surgery would like you to continue protonix daily as well as oral erythromycin prior to your meals 3x daily for 4 weeks to assess if this helps with your symptoms. We recommend you keep a diet diary and bring this with you to your follow-up with your primary care and your surgeon. While in the hospital you declined meals several times but again WE strongly recommend you eat a small portion of each meal and if needed may pretreat with nausea medications. During the admission your blood pressure was routinely elevated above goal. We started you on low dose lisinopril. Please continue to have your blood pressure assessed per your primary care and the regimen altered as needed. Please also have repeat basic metabolic panel in 1-2 weeks with your primary care physician. During the admission your blood sugars were elevated. Your HgbA1c was obtained and noted to be 5.7% which given your recent surgery is not unexpected. Please continue to follow this with your primary care. Allergies/Adverse Reactions: Allergies No Known Allergies Allergy (Verified 05/26/20 20:02) Medications to take at Discharge Aspirin [Aspirin, Baby] 81 mg PO DAILY@0800 05/27/20 Ensure Clear 120 ml PO 4X/DAY liquid 06/01/20 Erythromycin Base 250 mg PO TIDCM #90 tab 06/01/20 Lisinopril [Prinivil] 10 mg PO DAILY #30 tab 06/01/20 Ondansetron [Zofran Odt] 4 mg PO Q8H PRN PRN #30 tab 06/01/20 Pantoprazole Sodium [Protonix] 40 mg PO DAILY #30 tab 06/01/20 Sertraline HCl [Zoloft] 50 mg PO DAILY #30 tab 06/01/20 lipase/protease/amylase [Augie COPELAND 3,000 Unit Capsule] 1 cap PO TIDCM #90 cap 06/01/20 The following prescriptions were given: lipase/protease/amylase [Auige COPELAND 3,000 Unit Capsule] 1 cap PO TIDCM #90 cap Transmission Status: Pending to [facility] Erythromycin Base 250 mg PO TIDCM #90 tab Transmission Status: Pending to [facility] Lisinopril [Prinivil] 10 mg PO DAILY #30 tab Transmission Status: Pending to [facility] Pantoprazole Sodium [Protonix] 40 mg PO DAILY #30 tab Transmission Status: Pending to [facility] Ondansetron [Zofran Odt] 4 mg PO Q8H PRN PRN #30 tab PRN Reason: nausea, emesis Transmission Status: Pending to [facility] Sertraline HCl [Zoloft] 50 mg PO DAILY #30 tab Transmission Status: Pending to [facility] Primary Care Physician: Anjelica Mendoza MD [Primary Care Provider] - Please follow up with your Primary Care Physician in: Follow-up within 3-5 days to review admission. Have repeat hepatic profile. Test Results: Test results from this visit will be discussed in further detail at your follow-up appointment, if applicable. Please Follow Up With: Peyton Kaur MD When: Follow-up within 1 week. Please Follow Up With: [facility] When: Follow-up with your surgeon arranged at d/c from [facility] within 1 week. Proposed Discharge Date: 06/01/20
[2020-06-01] MEDS: Acetaminophen 325 MG Tablet 650 MG PO (08:49)
--- NOTE | 2020-06-01 09:02 | PCM.DC.SUM ---
Discharge Date and Diagnosis - Problem List Patient Problems: Active and Suspected Problems (Last Reviewed 05/27/20 @ 04:[address] Vinny Fuentes MD) Hypokalemia (Acute) Pancreas cancer (Acute) Hyponatremia (Acute) Abdominal pain (Acute) Date of Admission: 05/27/20 Date of Discharge: 06/01/20 - Primary Discharge Diagnosis Acute Problems: Active Problems (Last Reviewed 05/27/20 @ 04:[address] Vinny Fuentes MD) 1. Pancreatic cancer with recent Whipple with intractable nausea primarily, rare emesis suspected secondary to gastroparesis component with poor oral intake with failure to thrive in adult, complicated in large part by Depression 2. Anxiety and depression, uncontrolled 3. Hyperglycemia with Prediabetes mellitus (HgbA1c 5.7%) 4. Hyponatremia, hypovolemic 5. Hypokalemia 6. Elevated LFTs, possible secondary to recent surgery (No acute findings on CT A/P, Surgery recommended continued follow-up of profile with PCP) 7. Elevated BP without hypertensive diagnosis 8. History of prostate cancer 9. Chronic anemia 10. History of TIA and carotid stenosis - Secondary Discharge Diagnosis Chronic Problems: Chronic Problems (Last Reviewed 05/27/20 @ 04:[address] Vinny Fuentes MD) TIA (transient ischemic attack) (Chronic) Lung nodule (Chronic) Hospital Course and Treatment Dr. Mantilla General Surgery Operations: None Procedures: - - Serial CT A/P assessment Summary of Care Provided: The patient is a 69 y/o M w/ PMHx: Hx TIA, Hx carotid stenosis, Hx chronic L sided hearing loss, Pancreatic cancer s/p recent Whipple at [facility] ~ 1 month prior who presented to the [facility] ED on 05/27/20 with history of persistent nausea and occasional emesis although describes increased oral secretions as primary source with some loose stools ongoing x2 days with inability to care for self and some intractable abdominal pain following recent surgery prompting ED evaluation. Patient with surgery at [facility] in [place] with robotic pancreatic intervention 04/26/2020, admitted secondary to failure to thrive with poor oral intake and reported nausea and emesis, initially attempted TPN however this has failed this patient significant side effects, often picking and choosing what interventions he is amenable to, general surgery consulted and following, repeat CT of the abdomen and pelvis upon presentation and most recently 05/30/2020 with no extraluminal contrast or pneumoperitoneum with anastomotic leak or breakdown considered very unlikely with evidence status post Whipple with decreased horseshoe fluid collection adjacent to the caudate head/pancreatic/surgical bed possibly postoperative bilioma or seroma with decreased intrahepatic bile duct dilatation and noted moderate fecal retention. Given patient current presentation and often unwillingness to perform recommended medical interventions felt transfer would not benefit patient and eventually he became willing on 05/31/2020 to trial oral intake specifically low-fat, low-cholesterol, vegetarian and lactose free diet which was tolerated when patient willing. Patient transitioned from IV to oral erythromycin per Surgery recommendation and maintained on creon as well as protonix. Discussed depression as significant etiology for his current presentation several times, by several providers during admission with zoloft start; however, patient frequently refused. Encouraged continuation at discharge as well as therapy/counseling. Patient with intermittently elevated blood sugars, hemoglobin A1c obtained and noted to be 5.7%, thus encouraged close follow-up especially given Whipple status with primary care physician to monitor hemoglobin A1c is currently in the prediabetic stage. Patient LFTs have increased through admission, admission 05/26/2020 AST/ALT 22/44, alk phos 124, increased 06/01/2020 total bilirubin 0.7, AST/ALT 174/181, alk phos [address] abdomen pelvis upon presentation and repeat 05/31/2020 as noted. Surgery noted given CT with oral and IV contrast no need for additional liver imaging. Recommended continued trending with his PCP upon discharge. Patient with elevated blood pressures throughout admission above goal, given prediabetic status added low-dose DYLON inhibitor with recommended BP trending with PCP and follow-up renal function given this start. Given patient tolerance of oral intake when not refusing per discussion with Surgery, patient discharged to home given family present from out of state to be of more assist with strong recommendations to continue altered diet, at least small portion intake with each meal, continued 4 week course erythromycin, continued creon and protonix with follow-up with his PCP, Oncology and his surgeon arranged per [facility] following his recent surgery. Strongly encouraged continuation of his sertraline and outpatient counseling. DAY OF DISCHARGE PROGRESS NOTE: Subjective: Patient without acute event overnight per self and nursing report. Patient ambulating in his room without issue. He has no abdominal pain. He is tolerating his diet when he is willing to eat. Notes occasional nausea improved with zofran. Patient denies fever, chills, emesis, abdominal pain, chest pain or dyspnea. Patient agreeable to discharge to home although reticent and continues to request staff perform near all his activities. Still refusing depression medications or that he is depressed. Patient will be discharged with follow-up with primary care physician within 3-5 days in addition to Oncology and planned [facility] surgeon previously arranged but earlier following his discharge. Objective: T 97.8, heart rate 88, BP 147/90, respiratory rate 14, 98% on room air. Physical Examination: General: awake, alert, oriented x 3 and cooperative, seated upright in the medical surgical bed, no acute distress, notes he was up and walking and now fatigued. Skin: normal color, turgor, no icterus, cyanosis, resolving recent abdominal surgical incisions, well appearing. HEENT: AT/NC, EOMI, PERRLA, mildly dry MM. Lungs: Diminished breath sounds, greater bases, moderate effort, no rales, ronchi or wheezing. Heart: Regular rate and rhythm; no gallop, rub audible. Abdomen: soft, mild diffuse generalized discomfort but no rebound or guarding, worse in the left upper quadrant, no obvious distention, normal bowel sounds, see skin. Extremities: no cyanosis, clubbing, or edema. Neurological: patient awake, alert, oriented as noted; cognitive function intact; pupils equally reactive to light and accomodation; cranial nerves II-XII grossly normal, moving all 4 extremities, no focal deficits, strength mildly global decreased secondary to patient recent history, up and moving more today. Psychiatric: affect appears flat, suspect underlying depression but patient has refused any interventions or treatments, no obvious anxiety feelings. Assessment and Plan: Please see hospital summary above. Patient Problems: Active and Suspected Problems (Last Reviewed 05/27/20 @ 04:[address] Vinny Funetes MD) Hypokalemia (Acute) Pancreas cancer (Acute) Hyponatremia (Acute) Abdominal pain (Acute) - Physical Exam Vitals/I&O's: Vital Signs Temp Pulse Resp BP Pulse Ox 98.5 F 86 18 151/82 H 97 06/01/20 03:14 06/01/20 03:29 06/01/20 03:14 05/31/20 22:11 06/01/20 07:16 Oxygen Delivery Method Room Air Weight: 138 lb 3.677 oz Body Mass Index (BMI) 21.6 Finger Stick Blood Glucose 133 Intake and Output for Last 24 Hours 05/30/20 05/31/20 06/01/20 23:59 23:59 23:59 Intake Total 1957.72 / 1957.72 3243.33 / 3243.33 878.33 / 878.33 Output Total 200 / 200 800 / 800 Balance 1757.72 / 1757.72 2443.33 / 2443.33 878.33 / 878.33 Microbiology Past 72 Hours 05/27/20 01:00 Blood Culture (Wb) - Anticubital Left Blood Culture - Final No growth in 5 days. 05/27/20 01:12 Blood Culture (Wb) - Anticubital Right Blood Culture - Final No growth in 5 days. Laboratory Results 06/01/20 06:20: WBC 7.3, RBC 3.10 L, Hgb 9.8 L, Hct 28.8 L, MCV 92.9, MCH 31.6, MCHC 34.0, RDW Std Deviation 44.4 H, RDW Coeff of [place] 13.1, Plt Count 278, MPV 8.7, Immature Gran % (Auto) 0.800, Neut % (Auto) 84.1 H, Lymph % (Auto) 4.4 L, [place] % (Auto) 9.5, Eos % (Auto) 1.1, Baso % (Auto) 0.1, Absolute Neuts (auto) 6.2, Absolute Lymphs (auto) 0.32 L, Nucleated RBC % 0 06/01/20 06:20: Sodium 133 L, Potassium 2.9 L, Chloride 101, Carbon Dioxide 26.0, Anion Gap 6, BUN 4 L, Creatinine 0.57 L, Estim Creat Clear Calc 63.57, Est GFR (MDRD) Af Amer 181, Est GFR (MDRD) Non-Af 150, BUN/Creatinine Ratio 7.0 L, Glucose 134 H, Calcium 8.3 L, Total Bilirubin 0.70, AST 174 H, ALT 181 H, Alkaline Phosphatase 144 H, Total Protein 6.4, Albumin 2.0 L, Globulin 4.4 H, Albumin/Globulin Ratio 0.5 L Current Medications Acetaminophen (Acetaminophen 325 Mg Tablet) 650 mg PO Q6H PRN PRN PRN Reason: Pain Score 1-10/Temp > 100.7 F Dextrose (Dextrose 50%-Water 25 Gm/50 Ml Disp.Syrin) 0 gm IV X1 PRN; Protocol PRN Reason: Hypoglycemia Enoxaparin Sodium (Enoxaparin 40 Mg/0.4 Ml Syringe) 40 mg SC DAILY@0600 [facility] Last Admin: 06/01/20 05:28 Dose: 40 mg Documented by: Erythromycin (Erythromycin Base 250 Mg Tablet) 250 mg PO TID [facility] Glucagon (Glucagon 1 Mg/Ml Syringe) 1 mg IM .X1 PRN PRN Reason: Hypoglycemia Hydralazine HCl (Hydralazine 20 Mg/Ml Vial) 10 mg IV Q4H PRN PRN PRN Reason: SBP > 160 Sodium Chloride () 250 mls @ 15 mls/hr IV .[id number] PRN PRN Reason: Saline Flush Sodium Chloride () 250 mls @ 15 mls/hr IV .[id number] PRN PRN Reason: Additional IVPB Infusion Last Infusion: 05/30/20 17:49 Dose: 0 mls/hr Documented by: Potassium Chloride/Dextrose/Sod Cl () 1,000 mls @ 100 mls/hr IV .Q10H [facility] Last Infusion: 06/01/20 06:31 Dose: 100 mls/hr Documented by: Lisinopril (Lisinopril 10 Mg Tablet) 10 mg PO DAILY [facility] Melatonin (Melatonin 3 Mg Tablet) 3 mg PO QHS PRN PRN PRN Reason: INSOMNIA Last Admin: 05/31/20 22:26 Dose: 3 mg Documented by: Nutritional Formula (Lactose Free) (Ensure Clear 120 Ml Liquid) 120 ml PO 4X/DAY [facility] Last Admin: 05/31/20 22:11 Dose: Not Given Documented by: Ondansetron HCl (Ondansetron 4 Mg/2 Ml Vial) 4 mg IV Q8H PRN PRN PRN Reason: NAUSEA/VOMITING Last Admin: 05/31/20 20:24 Dose: 4 mg Documented by: Pancrelipase (Creon 3,[address] Capsule) 1 capsule PO TIDCM [facility] Last Admin: 05/31/20 18:19 Dose: Not Given Documented by: Pantoprazole Sodium (Pantoprazole Sodium 40 Mg Tablet) 40 mg PO DAILY [facility] Prochlorperazine Edisylate (Prochlorperazine 10 Mg/2 Ml Vial) 5 mg IV Q4H PRN PRN PRN Reason: NAUSEA/VOMITING Last Admin: 06/01/20 03:23 Dose: 5 mg Documented by: Senna/Docusate Sodium (Senna/Docusate Sodium 1 Tablet) 2 tablet PO BID PRN PRN PRN Reason: Constipation Last Admin: 05/30/20 17:06 Dose: 2 tablet Documented by: Sertraline HCl (Sertraline 50 Mg Tablet) 50 mg PO DAILY [facility] Last Admin: 05/31/20 09:55 Dose: Not Given Documented by: Sodium Chloride (0.9% Saline Lock 10 Ml Syringe) 10 - 40 ml IV UD PRN PRN Reason: SALINE FLUSH Last Admin: 05/31/20 10:35 Dose: 10 ml Documented by: Sodium Chloride (Sodium Chloride 0.65% 1 [place].Btl) 2 spray NASAL TID PRN PRN PRN Reason: NASAL DRYNESS Last Admin: 05/28/20 20:05 Dose: 2 spray Documented by: Discharge Activity: - - Encourage regular movement and activity. Please be out of bed for all meals. We recommend you walk at least around your house several times a day. Please continue usage of your incentive spirometer 10x/hr 7a-7p. Call your doctor if your incision/area has: Continuous Slow Oozing, Sudden Increased Bleeding, Increased Pain/ Swelling, Increased Redness, Foul Smelling Discharge, Swelling at the incision site Call your doctor if you observe: Fever of 101 or Higher, Inability to urinate, Inability to have a bowel movement, Shortness of breath, Dizziness, Chest pain, Uncontrolled pain, - - Recurrent intractable emesis of your actual meals, not saliva. Home Medications: Medications to take at Discharge Aspirin [Aspirin, Baby] 81 mg PO DAILY@0800 05/27/20 Ensure Clear 120 ml PO 4X/DAY liquid 06/01/20 Erythromycin Base 250 mg PO TIDCM #90 tab 06/01/20 Lisinopril [Prinivil] 10 mg PO DAILY #30 tab 06/01/20 Ondansetron [Zofran Odt] 4 mg PO Q8H PRN PRN #30 tab 06/01/20 Pantoprazole Sodium [Protonix] 40 mg PO DAILY #30 tab 06/01/20 Sertraline HCl [Zoloft] 50 mg PO DAILY #30 tab 06/01/20 lipase/protease/amylase [Crehugo DR 3,000 Unit Capsule] 1 cap PO TIDCM #90 cap 06/01/20 Following Prescriptions Were Given to Patient: lipase/protease/amylase [Creon DR 3,000 Unit Capsule] 1 cap PO TIDCM #90 cap Transmission Status: Received by [facility] Erythromycin Base 250 mg PO TIDCM #90 tab Transmission Status: Received by [facility] Lisinopril [Prinivil] 10 mg PO DAILY #30 tab Transmission Status: Received by [facility] Pantoprazole Sodium [Protonix] 40 mg PO DAILY #30 tab Transmission Status: Received by [facility] Ondansetron [Zofran Odt] 4 mg PO Q8H PRN PRN #30 tab PRN Reason: nausea, emesis [facility] Status[facility] Sertraline HCl [Zoloft] 50 mg PO DAILY #30 tab [facility] Status[facility] Primary Care Physician: Anjelica Mendoza MD [Primary Care Provider] - Please follow up with your Primary Care Physician in: Follow-up within 3-5 days to review admission. Have repeat hepatic profile. Please Follow Up With: Peyton Kaur MD When: Follow-up within 1 week. Please Follow Up With: [facility] When: Follow-up with your surgeon arranged at d/c from [facility] within 1 week. Patient Instructions: Prediabetes, Oncology: Controlling Nausea and Vomiting, What Can Cause Depression?, Counseling for Depression, Depression: Tips to Help Yourself, Know the Signs and Symptoms of Depression, Selective Serotonin Reuptake Inhibitors Disposition: Home Minutes spent on discharge:: 35 Patient Condition:: Fair Medical Necessity - Tobacco Use Smoking Status: Never smoker Meaningful Use Info Meaningful Use Diagnoses (Choose all that apply): None applicable Inpatient E&M: [id number] [facility]
[2020-06-01 09:06] VITALS: BP 147/90; PULSE 88; RESP 14; TEMP 36.6; O2SAT 98
--- NOTE | 2020-06-01 09:58 | PCM.PN.SRG ---
Patient Problems: Active and Suspected Problems (Last Reviewed 05/27/20 @ 04:[address] Vinny Fuentes MD) Hypokalemia (Acute) Pancreas cancer (Acute) Hyponatremia (Acute) Abdominal pain (Acute) Subjective: Patient evaluated resting comfortably in his chair. He states food went okay yesterday. He notes keeping all of his food down yesterday. He states however being slightly nauseated. Patient states he had vegetable soup with potatoes and broth. He is refusing antidepressant. He denies being depressed. He states his son is flying here from [place] today to stay with him for a few days. Patient is unsure when his next appointment is with his surgeon from [place]. He denies having an oncologist here locally. He states he was told he is cancer free and does not need a local oncologist. He does have a family physician, Dr. Mendoza. Patient is unsure if he will continue blood pressure medication at home. He does not like taking all of these pills. - Physical Exam Vitals/I&O's: Vital Signs Temp Pulse Resp BP Pulse Ox 97.8 F 88 14 147/90 H 98 06/01/20 09:06 06/01/20 09:06 06/01/20 09:06 06/01/20 09:06 06/01/20 09:06 Oxygen Delivery Method Room Air Weight: 138 lb 3.677 oz Body Mass Index (BMI) 21.6 Finger Stick Blood Glucose 133 Intake and Output for Last 24 Hours 05/30/20 05/31/20 06/01/20 23:59 23:59 23:59 Intake Total 1957.72 / 1957.72 3243.33 / 3243.33 878.33 / 878.33 Output Total 200 / 200 800 / 800 Balance 1757.72 / 1757.72 2443.33 / 2443.33 878.33 / 878.33 General: Alert, Oriented x3, Cooperative Abdomen: Bowel Sounds Present, Soft, Non Tender Psych/Mental Status: Flat Affect, Depressed, Restless Microbiology Past 72 Hours 05/27/20 01:00 Blood Culture (Wb) - Anticubital Left Blood Culture - Final No growth in 5 days. 05/27/20 01:12 Blood Culture (Wb) - Anticubital Right Blood Culture - Final No growth in 5 days. Laboratory Results 06/01/20 06:20: WBC 7.3, RBC 3.10 L, Hgb 9.8 L, Hct 28.8 L, MCV 92.9, MCH 31.6, MCHC 34.0, RDW Std Deviation 44.4 H, RDW Coeff of [place] 13.1, Plt Count 278, MPV 8.7, Immature Gran % (Auto) 0.800, Neut % (Auto) 84.1 H, Lymph % (Auto) 4.4 L, [place] % (Auto) 9.5, Eos % (Auto) 1.1, Baso % (Auto) 0.1, Absolute Neuts (auto) 6.2, Absolute Lymphs (auto) 0.32 L, Nucleated RBC % 0 06/01/20 06:20: Sodium 133 L, Potassium 2.9 L, Chloride 101, Carbon Dioxide 26.0, Anion Gap 6, BUN 4 L, Creatinine 0.57 L, Estim Creat Clear Calc 63.57, Est GFR (MDRD) Af Amer 181, Est GFR (MDRD) Non-Af 150, BUN/Creatinine Ratio 7.0 L, Glucose 134 H, Calcium 8.3 L, Total Bilirubin 0.70, AST 174 H, ALT 181 H, Alkaline Phosphatase 144 H, Total Protein 6.4, Albumin 2.0 L, Globulin 4.4 H, Albumin/Globulin Ratio 0.5 L Current Medications Acetaminophen (Acetaminophen 325 Mg Tablet) 650 mg PO Q6H PRN PRN PRN Reason: Pain Score 1-10/Temp > 100.7 F Last Admin: 06/01/20 08:49 Dose: 650 mg Documented by: Dextrose (Dextrose 50%-Water 25 Gm/50 Ml Disp.Syrin) 0 gm IV X1 PRN; Protocol PRN Reason: Hypoglycemia Enoxaparin Sodium (Enoxaparin 40 Mg/0.4 Ml Syringe) 40 mg SC DAILY@0600 BRIGITTE Last Admin: 06/01/20 05:28 Dose: 40 mg Documented by: Erythromycin (Erythromycin Base 250 Mg Tablet) 250 mg PO TID RBIGITTE Glucagon (Glucagon 1 Mg/Ml Syringe) 1 mg IM .X1 PRN PRN Reason: Hypoglycemia Hydralazine HCl (Hydralazine 20 Mg/Ml Vial) 10 mg IV Q4H PRN PRN PRN Reason: SBP > 160 Sodium Chloride () 250 mls @ 15 mls/hr IV .[id number] PRN PRN Reason: Saline Flush Sodium Chloride () 250 mls @ 15 mls/hr IV .[id number] PRN PRN Reason: Additional IVPB Infusion Last Infusion: 05/30/20 17:49 Dose: 0 mls/hr Documented by: Potassium Chloride/Dextrose/Sod Cl () 1,000 mls @ 100 mls/hr IV .Q10H [facility] Last Infusion: 06/01/20 06:31 Dose: 100 mls/hr Documented by: Lisinopril (Lisinopril 10 Mg Tablet) 10 mg PO DAILY [facility] Melatonin (Melatonin 3 Mg Tablet) 3 mg PO QHS PRN PRN PRN Reason: INSOMNIA Last Admin: 05/31/20 22:26 Dose: 3 mg Documented by: Nutritional Formula (Lactose Free) (Ensure Clear 120 Ml Liquid) 120 ml PO 4X/DAY [facility] Last Admin: 06/01/20 08:42 Dose: Not Given Documented by: Ondansetron HCl (Ondansetron 4 Mg/2 Ml Vial) 4 mg IV Q8H PRN PRN PRN Reason: NAUSEA/VOMITING Last Admin: 05/31/20 20:24 Dose: 4 mg Documented by: Pancrelipase (Creon 3,[address] Capsule) 1 capsule PO TIDCM [facility] Last Admin: 06/01/20 08:41 Dose: 1 capsule Documented by: Pantoprazole Sodium (Pantoprazole Sodium 40 Mg Tablet) 40 mg PO DAILY [facility] Last Admin: 06/01/20 09:05 Dose: Not Given Documented by: Prochlorperazine Edisylate (Prochlorperazine 10 Mg/2 Ml Vial) 5 mg IV Q4H PRN PRN PRN Reason: NAUSEA/VOMITING Last Admin: 06/01/20 03:23 Dose: 5 mg Documented by: Senna/Docusate Sodium (Senna/Docusate Sodium 1 Tablet) 2 tablet PO BID PRN PRN PRN Reason: Constipation Last Admin: 05/30/20 17:06 Dose: 2 tablet Documented by: Sertraline HCl (Sertraline 50 Mg Tablet) 50 mg PO DAILY [facility] Last Admin: 06/01/20 08:42 Dose: Not Given Documented by: Sodium Chloride (0.9% Saline Lock 10 Ml Syringe) 10 - 40 ml IV UD PRN PRN Reason: SALINE FLUSH Last Admin: 05/31/20 10:35 Dose: 10 ml Documented by: Sodium Chloride (Sodium Chloride 0.65% 1 [place].Btl) 2 spray NASAL TID PRN PRN PRN Reason: NASAL DRYNESS Last Admin: 05/28/20 20:05 Dose: 2 spray Documented by: Medical Necessity - Tobacco Use Smoking Status: Never smoker Assessment/Plan All Active Problems (Last Reviewed 05/27/20 @ 04:[address] Vinny Fuentes MD) Hypokalemia (Acute) Pancreas cancer (Acute) Hyponatremia (Acute) Abdominal pain (Acute) Biliary obstruction (Resolved) I am following this patient in conjunction with Dr. Mantilla Impression: S/p Robotic Whipple for pancreatic cancer in [place]. Nausea, vomiting, lack of appetite. Etiology probable gastroparesis. Discussed patient with Dr. Mantilla Continue regular vegetarian diet with Ensure clear at discharge Recommend smaller meals throughout the day Patient not receptive with follow-through and unwilling to assist in his care Recommend oncology establishment locally following discharge Follow-up with PCP at discharge No surgical intervention being recommended at this time Patient may continue with PPI and erythromycin x 4 weeks for gastroparesis. Patient ready for discharge Inpatient E&M: [id number] [facility] [[email or web address]] Hosp L1
--- NOTE | 2020-06-01 10:33 | CASEMGMT ---
YOEL ROSARIO NOTE: Therapy recommending walker and additional therapy. YOEL ROSRAIO to room to talk with pt and he was made aware of recommendations. He is agreeable to getting a walker. Provided with list of local DME co's. He denies having preference. Made aware Kam is affiliated with [facility] and he is agreeable to [facility]. Script obtained from Dr Miguel and faxed to [facility] at this time. Call placed to [facility] and they were made aware pt is discharging home today. They will deliver walker to pt's room today prior to discharge. Discussed HHC with pt and OP therapy. Pt states his son is coming from [place] and plans to stay with him for awhile. He declines wanting HHC or OP therapy at this time, stating, Maybe down the road. He states he wants to see how he does when he gets home first. Pt was made aware if he decides in the future that he would like either HHC or OP therapy to discuss this with his PCP. He voices understanding. Jacinto BENITEZ RN, CM
[2020-06-01] MEDS: 0.9% Saline Lock 10 ML Syringe IV (13:06)
--- NOTE | 2020-06-02 11:00 | CASEMGMT ---
YOEL ROSARIO Discharge Follow-up Phone Call: MURALI: Piedad Strata: 3 Call Date: 06/02/20 Discharge Date: 06/01/20 Time of Call: 1100 Duration: 15 min Admitting Diagnosis: Intractable nausea and vomiting YOEL ROSARIO received call from getachew Mccarthy stating that patient is not doing well at home. YOEL ROSARIO was updated by charge nurse that son had called in and that patient did not tile picker prescriptions and was nauseous all night. YOEL ROSARIO spoke to getachew Mccarthy. Fabio states that the patient has not been able to tolerate food at home and is not able to care for self at home. Getachew Mccarthy is here from [place] and will not be staying with patient. Patient has another son that lives close but is not able to help patient. Getachew Mccarthy inquired about possible SNF or rehab unit. YOEL ROSARIO instructed son to call patient's PCP Dr. Mendoza and update on patient's status and to assist with placement from the community. Getachew Mccarthy voiced understanding. YOEL ROSARIO provided contact information should son have any more questions or concerns.
--- NOTE | 2020-06-02 16:14 | CASEMGMT ---
This RN CM received a messaged from Dr. Mendoza (pt's PCP) regarding concerns expressed by pt's son of pt not being safe to stay by himself at home. This RN CM spoke with Dr. Mendoza's staff (Arianne and Ammy) and determined that the patient has not yet established with Dr. Mendoza but they do have an appointment scheduled for next week. Due to this, Dr. Mendoza would not be able to provide orders to the SNF at this time. This RN CM spoke with pt's son Fabio who states he has been in contact with the surgeon's office in [place] who is willing to provide orders for the SNF. Pt's son states he was just beginning to get on line to review potential SNF facilities. Provided him with Medicare.gov/care-compare website and talked him through the site to obtain a list of facilities around his father's zip code. Instructed him on how to use the compare site to review quality and resource use data of different facilities. Pt's son expressed understanding. Provided son with option to return his father to the ED where we could facilitate the SNF admission. Son states he is here until Sunday so he will use that as a last resort if he is unsuccessful by then. Return call received from pt's son Fabio stating he had spoken with Mihaela from [facility] and that she was helping him facilitate his father's admission and that HIM was sending the needed medical record documentation to [facility]. He denied any further needs. Kai Vazquez RN CM
== END 2020-06-01 14:26 | disposition home or self-care (01) | DRG 391 ==
LOC: ED 05-27 00:31 → MS3 05-27 00:48
PROVIDERS: Family Medicine; Admitting Provider Hospitalist; Emergency Provider Emergency Medicine; PCP Internal Medicine; Visit Provider Family Medicine
DX: K31.84 Gastroparesis (principal); E43 Unspecified severe protein-calorie malnutrition; E87.1 Hypo-osmolality and hyponatremia; R62.7 Adult failure to thrive; F32.9 Major depressive disorder, single episode, unspecified; F41.9 Anxiety disorder, unspecified; R73.03 Prediabetes; E87.6 Hypokalemia; R03.0 Elevated blood-pressure reading, without diagnosis of hypertension; E86.1 Hypovolemia; I65.29 Occlusion and stenosis of unspecified carotid artery; H91.92 Unspecified hearing loss, left ear; R63.8 Other symptoms and signs concerning food and fluid intake; Z83.3 Family history of diabetes mellitus; R91.1 Solitary pulmonary nodule; R42 Dizziness and giddiness; E86.0 Dehydration; D64.9 Anemia, unspecified; D72.829 Elevated white blood cell count, unspecified; R94.5 Abnormal results of liver function studies; Z53.29 Procedure and treatment not carried out because of patient's decision for other reasons; Z85.07 Personal history of malignant neoplasm of pancreas; Z90.411 Acquired partial absence of pancreas; Z85.46 Personal history of malignant neoplasm of prostate; Z92.3 Personal history of irradiation; Z92.21 Personal history of antineoplastic chemotherapy; Z90.49 Acquired absence of other specified parts of digestive tract; Z79.899 Other long term (current) drug therapy; Z86.73 Personal history of transient ischemic attack (TIA), and cerebral infarction without residual deficits
CPT/HCPCS: 36415; 70450; 70553; 71045; 74177; 80053; 81001; 82962; 83036; 83690; 84478; 84484; 85025; 87040; 87426; 93005; 97116; 97162; 97166; 97530; 97535; 97802; 97803; 99285; A9575; J7030; J7050; Q9967; A4216; J2405

== ENCOUNTER → 2020-06-07 15:33 | Outpatient (CLI) | payer MEDICARE, SELFPAY ==
[2020-06-07 13:56] VITALS: BMI 20.5
[2020-06-07 16:36] LABS: Absolute Lymphocyte Count 0.44 X10^3/uL (0.83-4.51); Absolute Neutrophil Count 4.1 X10^3/uL (2.0-7.7); Basophil# 0.03 X10^3/uL; Basophil% 0.6 % (0-1); Eosinophil# 0.08 X10^3/uL; Eosinophils% 1.6 % (0-5); Hematocrit 35.1 % (40-54); Hemoglobin 11.3 g/dL (13.0-16.5); Lymphocyte # 0.44 X10^3/ul (4.0); Lymphocyte % 8.6 % (19-41); Mean Corp Hgb Conc 32.2 g/dL (32-36); Mean Corpuscular Hgb 30.9 pg (27.0-32.0); Mean Corpuscular Volume 95.9 fL (80-94); Mean Platelet Vol. 10.5 fl (6.2-12.0); Monocyte# 0.41 X10^3/uL; NRBC Flagged by Analyzer 0 % (0-5); Neutrophil # 4.14 X10^3/uL (2.7-7.7); Neutrophil % 80.6 % (47-70); POSITIVE DIFFERENTIAL YES; Platelet Count 214 K/mm3 (150-450); RBC Distribution Width CV 13.3 % (11.6-14.6); RBC Distribution Width SD 47.2 fl (35.1-43.9); Red Blood Count 3.66 M/mm3 (4.6-6.2); White Blood Count 5.1 K/mm3 (4.4-11.0)
[2020-06-07 16:42] LABS: Differential Indicated SCAN CRITERIA MET
[2020-06-07 16:51] LABS: Vitamin D,25 Hydroxy 49.7 ng/mL
[2020-06-07 17:01] LABS: ALB/GLOB Ratio 0.4 RATIO (0.9-2.4); AST(SGOT) 59 U/L (15-37); Alanine Aminotransfer ALT/SGPT 93 U/L (16-61); Albumin, Serum 2.3 g/dL (3.2-5.0); Alkaline Phosphatase 202 U/L (45-117); Anion Gap 5 (5-15); BUN 13 mg/dL (7-18); BUN/Creat Ratio 16.4 RATIO (10-20); Calcium,Total 8.7 mg/dL (8.5-10.1); Chloride 96 mmol/L (98-107); Creatinine, Serum 0.79 mg/dL (0.70-1.30); EST Glomerular Filtration Rate 104 mL/min (>60); Est Glom Filt Rate - Afr Amer 125 mL/min (>60); Globulin 5.4 g/dL (2.2-4.2); Glucose 109 mg/dL (74-106); Magnesium 1.9 mg/dL (1.6-2.6); Potassium 3.5 mmol/L (3.5-5.1); Protein, Total 7.7 g/dL (6.4-8.2); Sodium Level 133 mmol/L (136-145); Thyroid Stim Hormone (TSH) 2.88 uIU/mL (0.358-3.74)
[2020-06-07 17:05] LABS: Differential Comment SCANNED
== END ==
PROVIDERS: PCP Internal Medicine; Referring Provider Internal Medicine; Visit Provider Internal Medicine
DX: H53.9 Unspecified visual disturbance (principal); E87.6 Hypokalemia; C25.9 Malignant neoplasm of pancreas, unspecified; E87.1 Hypo-osmolality and hyponatremia; K59.00 Constipation, unspecified; K76.9 Liver disease, unspecified
CPT/HCPCS: 36415; 80053; 82306; 83735; 84443; 85025

== ENCOUNTER → 2020-09-10 15:11 | Outpatient (CLI) | payer MEDICARE, SELFPAY ==
[2020-09-09 16:24] VITALS: BMI 20.5
[2020-09-10 16:34] LABS: Absolute Lymphocyte Count 0.44 X10^3/uL (0.83-4.51); Absolute Neutrophil Count 2.6 X10^3/uL (2.0-7.7); Basophil# 0.01 X10^3/uL; Basophil% 0.3 % (0-1); Eosinophil# 0.07 X10^3/uL; Eosinophils% 2.1 % (0-5); Hematocrit 32.6 % (40-54); Hemoglobin 11.1 g/dL (13.0-16.5); Lymphocyte # 0.44 X10^3/ul (0.83-4.51); Lymphocyte % 13.2 % (19-41); Mean Corpuscular Hgb 32.3 pg (27.0-32.0); Mean Corpuscular Volume 94.8 fL (80-94); Mean Platelet Vol. 8.7 fl (6.2-12.0); Monocyte# 0.26 X10^3/uL; Monocyte% 7.8 % (0-10); NRBC Flagged by Analyzer 0 % (0-5); Neutrophil # 2.55 X10^3/uL (2.7-7.7); Neutrophil % 76.3 % (47-70); POSITIVE DIFFERENTIAL YES; Platelet Count 269 K/mm3 (150-450); RBC Distribution Width CV 15.6 % (11.6-14.6); RBC Distribution Width SD 53.7 fl (35.1-43.9); Red Blood Count 3.44 M/mm3 (4.6-6.2); White Blood Count 3.3 K/mm3 (4.4-11.0)
[2020-09-10 16:39] LABS: Differential Indicated SCAN CRITERIA MET
[2020-09-10 16:50] LABS: Vitamin D,25 Hydroxy 63.8 ng/mL
[2020-09-10 16:54] LABS: ALB/GLOB Ratio 0.9 RATIO (0.9-2.4); AST(SGOT) 130 U/L (15-37); Alanine Aminotransfer ALT/SGPT 115 U/L (16-61); Albumin, Serum 2.7 g/dL (3.2-5.0); Alkaline Phosphatase 130 U/L (45-117); Anion Gap 4 (5-15); BUN 15 mg/dL (7-18); BUN/Creat Ratio 18.7 RATIO (10-20); Calcium,Total 8.2 mg/dL (8.5-10.1); Chloride 106 mmol/L (98-107); EST Glomerular Filtration Rate 102 mL/min (>60); Est Glom Filt Rate - Afr Amer 123 mL/min (>60); Globulin 3.1 g/dL (2.2-4.2); Glucose 111 mg/dL (74-106); Potassium 3.1 mmol/L (3.5-5.1); Protein, Total 5.8 g/dL (6.4-8.2); Sodium Level 140 mmol/L (136-145); Thyroid Stim Hormone (TSH) 3.75 uIU/mL (0.358-3.74)
[2020-09-12 08:42] LABS: Carbohydrate AG 19-9 41 U/mL (0-35)
[2020-09-13 13:26] LABS: Pathologist Review Reviewed
== END ==
PROVIDERS: PCP Internal Medicine; Referring Provider Internal Medicine; Visit Provider Internal Medicine
DX: H53.9 Unspecified visual disturbance (principal); K91.2 Postsurgical malabsorption, not elsewhere classified; K59.00 Constipation, unspecified; C25.9 Malignant neoplasm of pancreas, unspecified; R64 Cachexia
CPT/HCPCS: 36415; 80053; 82306; 84443; 85025; 86301

== ENCOUNTER → 2020-09-22 15:41 | Outpatient (CLI) | payer MEDICARE, SELFPAY ==
[2020-09-09 16:24] VITALS: BMI 20.5
--- NOTE | 2020-09-22 15:43 | CT_ITS ---
STUDY: CT ABDOMEN AND PELVIS WITH CONTRAST REASON FOR EXAM: Male, 70 years old. History S/P Whipple pancreatic CA weight loss RADIATION DOSAGE (If Supplied By Facility): CTDIvol = ( 10.28 ) mGy, DLP = ( 392.17 ) mGycm TECHNIQUE: Transaxial images were obtained from the dome of the diaphragm to the symphysis pubis without oral contrast. Oral and amp; IV Readi-CAT and amp; 100mL Isovue-300 was administered. Sagittal and coronal images were reconstructed. Individualized dose optimization techniques were used for this CT. COMPARISON: Prior abdomen and pelvic CT exam of 05/30/2020 FINDINGS: The visualized lung bases are unremarkable. Prior atelectasis has resolved. Normal liver. Status post cholecystectomy. Biliary dilatation as resolved. Minimal pneumobilia. The pancreatic head has been removed. Marked atrophy of the remaining pancreatic body and tail with a stable appearance of the pancreatic duct. Unremarkable spleen. The portal, splenic and superior mesenteric veins remain patent. The previous postoperative fluid collections have essentially resolved with minimal remaining fat stranding in the operative bed. Stable 7 mm adenoma of the right adrenal gland. Normal left adrenal gland. Normal right kidney. Normal left kidney. Unremarkable stomach status post gastrojejunostomy. Normal small intestine. Normal colon. The appendix is visualized and appears normal. Mild atherosclerotic changes of the aorta. Normal inferior vena cava. Incidental retroaortic left renal vein. Normal urinary bladder. Normal abdominal wall. Normal osseous structures. CT/Abdomen/Pelvis WITH Contrast IMPRESSION: Resolved right basilar atelectasis. Unremarkable liver. Status post cholecystectomy with no biliary dilatation, minimal pneumatobilia. Status post surgical removal of the pancreatic head with stable appearance of the remaining atrophic pancreatic body and tail. Stable prominence of the pancreatic duct. Peripancreatic fluid collections have essentially resolved. Minimal remaining postoperative changes. Stable 7 mm right adrenal adenoma. No acute renal findings or changes. Negative for bowel obstruction, perforation or inflammatory changes. Status post gastrojejunostomy. Electronically Signed: Jackie Aguilar MD at 16:20 EDT , Service support ,
[2020-09-22] MEDS: 0.9% Saline Lock 10 ML Syringe IV (16:05)
== END ==
PROVIDERS: PCP Internal Medicine; Referring Provider Internal Medicine; Visit Provider Internal Medicine
DX: C25.9 Malignant neoplasm of pancreas, unspecified (principal)
CPT/HCPCS: 74177; Q9967; A4216

== ENCOUNTER 2021-04-28 14:40 | Outpatient (CLI) | payer MEDICARE, SELFPAY | END 2021-04-28 23:59 | disposition short-term general hospital (02) | LOC: LABSPEC 14:41 | PROVIDERS: PCP Internal Medicine; Referring Provider Physician Assistant; Visit Provider Physician Assistant | DX: U07.1 COVID-19 (principal) | CPT/HCPCS: 87635; U0003; U0005 ==

== ENCOUNTER → 2021-09-26 | Outpatient (CLI) | payer MEDICARE, SELFPAY ==
[2021-09-26 15:28] LABS: Absolute Lymphocyte Count 0.76 X10^3/uL (0.83-4.51); Absolute Neutrophil Count 1.7 X10^3/uL (2.0-7.7); Basophil# 0.04 X10^3/uL; Basophil% 1.2 % (0-1); Eosinophil# 0.38 X10^3/uL; Eosinophils% 11.8 % (0-5); Hemoglobin 12.2 g/dL (13.0-16.5); Lymphocyte # 0.76 X10^3/ul (0.83-4.51); Lymphocyte % 23.6 % (19-41); Mean Corpuscular Hgb 33.1 pg (27.0-32.0); Mean Corpuscular Volume 100.3 fL (80-94); Mean Platelet Vol. 8.8 fl (6.2-12.0); Monocyte# 0.37 X10^3/uL; Monocyte% 11.5 % (0-10); NRBC Flagged by Analyzer 0 % (0-5); Neutrophil # 1.66 X10^3/uL (2.7-7.7); Neutrophil % 51.6 % (47-70); Platelet Count 246 K/mm3 (150-450); RBC Distribution Width CV 13.5 % (11.6-14.6); RBC Distribution Width SD 49.7 fl (35.1-43.9); Red Blood Count 3.69 M/mm3 (4.6-6.2); White Blood Count 3.2 K/mm3 (4.4-11.0)
[2021-09-26 16:25] LABS: Vitamin D,25 Hydroxy 13.9 ng/mL
[2021-09-26 17:02] LABS: AST(SGOT) 27 U/L (15-37); Alanine Aminotransfer ALT/SGPT 38 U/L (16-61); Albumin, Serum 3.2 g/dL (3.2-5.0); Alkaline Phosphatase 83 U/L (45-117); Anion Gap 6 (5-15); BUN 14 mg/dL (7-18); BUN/Creat Ratio 18.4 RATIO (10-20); Calcium,Total 8.3 mg/dL (8.5-10.1); Chloride 110 mmol/L (98-107); Creatinine, Serum 0.76 mg/dL (0.70-1.30); EST Glomerular Filtration Rate 108 mL/min (>60); Est Glom Filt Rate - Afr Amer 130 mL/min (>60); Globulin 3.3 g/dL (2.2-4.2); Glucose 86 mg/dL (74-106); PSA,Total - Annual Screen 0.73 ng/mL (0.00-4.00); Potassium 2.7 mmol/L (3.5-5.1); Protein, Total 6.5 g/dL (6.4-8.2); Sodium Level 141 mmol/L (136-145); Thyroid Stim Hormone (TSH) 3.51 uIU/mL (0.358-3.74)
[2021-09-27 08:50] LABS: Vitamin B12 270 pg/mL (211-911)
== END | disposition home or self-care (01) ==
LOC: BIMLAB 14:14
PROVIDERS: PCP Internal Medicine; Referring Provider Internal Medicine; Visit Provider Internal Medicine
DX: H53.9 Unspecified visual disturbance (principal); C25.9 Malignant neoplasm of pancreas, unspecified; R64 Cachexia; K76.9 Liver disease, unspecified; K59.00 Constipation, unspecified; R19.5 Other fecal abnormalities; R71.8 Other abnormality of red blood cells; Z12.5 Encounter for screening for malignant neoplasm of prostate
CPT/HCPCS: 36415; 80053; 82306; 82607; 84153; 84443; 85025; G0103

== ENCOUNTER → 2021-10-05 | Outpatient (CLI) | payer MEDICARE, SELFPAY ==
[2021-10-05 15:37] LABS: Anion Gap 8 (5-15); BUN 13 mg/dL (7-18); BUN/Creat Ratio 15.6 RATIO (10-20); Calcium,Total 8.2 mg/dL (8.5-10.1); Chloride 112 mmol/L (98-107); Creatinine, Serum 0.84 mg/dL (0.70-1.30); EST Glomerular Filtration Rate 97 mL/min (>60); Est Glom Filt Rate - Afr Amer 117 mL/min (>60); Glucose 202 mg/dL (74-106); Potassium 3.4 mmol/L (3.5-5.1); Sodium Level 143 mmol/L (136-145)
== END | disposition home or self-care (01) ==
LOC: BIMLAB 14:28
PROVIDERS: PCP Internal Medicine; Referring Provider Internal Medicine; Visit Provider Internal Medicine
DX: E87.6 Hypokalemia (principal)
CPT/HCPCS: 36415; 80048

== ENCOUNTER → 2021-10-07 | Outpatient (CLI) | payer MEDICARE, SELFPAY ==
--- NOTE | 2021-10-07 13:43 | CT_ITS ---
STUDY: CT ABDOMEN AND PELVIS WITH CONTRAST REASON FOR EXAM: Male, 71 years old. Followup whipple 2020 for pancreatic head cancer RADIATION DOSAGE (If Supplied By Facility): CTDIvol = ( 8.91 ) mGy, DLP = ( 442.12 ) mGycm TECHNIQUE: Transaxial images were obtained from the dome of the diaphragm to the symphysis pubis with oral contrast. Oral and amp; IV Readi-CAT and amp; 75mL Isovue-300 was administered. Sagittal and coronal images were reconstructed. Individualized dose optimization techniques were used for this CT. COMPARISON: Comparison is made with prior study dated 09/22/2020. FINDINGS: The visualized lung bases are unremarkable. Coronary artery calcification. There is decreased attenuation of the liver consistent with steatosis. Stable minimal central intrahepatic biliary ductal dilatation. The patient is status post WHIPPLE procedure with resection of the gallbladder in the head of the pancreas. There is evidence of diffuse atrophy of the body and tail portions of the pancreas with diffuse punctate calcifications in comparison with the findings suggestive of chronic pancreatitis. Normal spleen. Stable 7 mm adenoma of the right adrenal gland. Normal right kidney. Normal left kidney. Normal visualized stomach. Normal small intestine. Moderate amount of fecal material is seen throughout the colon. The appendix is visualized and appears normal. There is scattered atherosclerotic calcification of the abdominal aorta, without a demonstrated aneurysm. Normal inferior vena cava. Normal retroperitoneum. Normal urinary bladder. Normal abdominal wall. Mild degree of degenerative changes of the lumbar spine. CT/Abdomen/Pelvis WITH Contrast IMPRESSION: Stable examination. Electronically Signed: Keenan Littlejohn MD at 15:26 EDT ,
== END | disposition home or self-care (01) ==
LOC: CT 13:41
PROVIDERS: PCP Internal Medicine; Referring Provider Internal Medicine; Visit Provider Internal Medicine
DX: C25.9 Malignant neoplasm of pancreas, unspecified (principal)
CPT/HCPCS: 74177; Q9967

== ENCOUNTER 2022-04-26 10:53 | Observation (INO) | payer MEDICARE, SELFPAY ==
[2022-04-26] VITALS (11 sets, daily range): BP systolic 128–151; BP diastolic 76–96; PULSE 60–86; RESP 14–18; TEMP 35.9–36.8; O2SAT 98–100; BMI 22.6; BMI 20.7
--- NOTE | 2022-04-26 11:01 | CT_ITS ---
We are attempting to reach an attending provider to discuss findings. An addendum with communication details will be sent when the communication is complete. EXAM: CT HEAD WITHOUT INTRAVENOUS CONTRAST CLINICAL INDICATION: Neuro deficit, acute, stroke suspected TECHNIQUE: Multiple axial images were obtained of the head without intravenous contrast. This CT exam was performed using one or more of the following dose reduction techniques: automated exposure control, adjustment of the mA and/or kV according to patient size, and/or use of iterative reconstruction technique. This report was created using [employer] report [employer] technology. COMPARISON: CT Head dated 05/26/2020 FINDINGS: BRAIN AND EXTRA-AXIAL SPACES: Areas of diminished white matter density noted within both cerebral hemispheres suggestive of chronic microvascular change. Prominence of the cortical sulci and ventricles related to volume loss change. No intra- or extra-axial hemorrhage. No evidence of acute infarct. No intracranial mass or mass effect. There is preservation of the lopez/white matter interface. Posterior fossa structures are unremarkable. Basal cisterns are patent. BONES/JOINTS: Normal. No discrete lytic or blastic abnormalities. SINUSES: Unremarkable as visualized. No acute sinusitis. MASTOID AIR CELLS: Normal. Clear. ORBITS: Visualized globes, extraocular muscles, optic nerves and retrobulbar fat appear unremarkable. CT/STROKE Brain/Head without Cont IMPRESSION: 1. No acute intracranial abnormality. 2. Senescent changes. Aspect score 10 Electronically Signed: Jarett Jacobsen MD at 11:33 EST ,
--- NOTE | 2022-04-26 11:01 | EKG12_ITS ---
Test Reason : DYSRHYTHMIA Blood Pressure : / mmHG Vent. Rate : 063 BPM Atrial Rate : 063 BPM P-R Int : 166 ms QRS Dur : 114 ms QT Int : 444 ms P-R-T Axes : 056 052 038 degrees QTc Int : 454 ms Normal sinus rhythm with sinus arrhythmia Normal ECG Confirmed by OSEAS AGUERO, JESSI ([id number]), design editor DEN HECK ([id number]) on 04/28/2022 6:26:43 AM Referred By: LUÍS Confirmed By:ALEX FAROOQ MD
[2022-04-26 11:15] LABS: Absolute Lymphocyte Count 0.73 X10^3/uL (0.83-4.51); Absolute Neutrophil Count 1.7 X10^3/uL (2.0-7.7); Basophil# 0.03 X10^3/uL; Eosinophil# 0.31 X10^3/uL; Eosinophils% 10.1 % (0-5); Hematocrit 36.1 % (40-54); Hemoglobin 12.6 g/dL (13.0-16.5); Lymphocyte # 0.73 X10^3/ul (0.83-4.51); Lymphocyte % 23.9 % (19-41); Mean Corp Hgb Conc 34.9 g/dL (32-36); Mean Corpuscular Hgb 33.9 pg (27.0-32.0); Mean Platelet Vol. 8.6 fl (6.2-12.0); Monocyte# 0.27 X10^3/uL; Monocyte% 8.8 % (0-10); NRBC Flagged by Analyzer 0 % (0-5); Neutrophil # 1.72 X10^3/uL (2.7-7.7); Neutrophil % 56.2 % (47-70); Platelet Count 212 K/mm3 (150-450); RBC Distribution Width CV 13.9 % (11.6-14.6); RBC Distribution Width SD 49.6 fl (35.1-43.9); Red Blood Count 3.72 M/mm3 (4.6-6.2); White Blood Count 3.1 K/mm3 (4.4-11.0)
--- NOTE | 2022-04-26 11:15 | RAD_ITS ---
EXAM: XR CHEST, 1 VIEW CLINICAL INDICATION: Neuro deficit, acute, stroke suspected TECHNIQUE: Frontal view of the chest. This report was created using [employer] report generation technology. COMPARISON: XR Chest dated 05/26/2020 FINDINGS: LUNGS AND PLEURAL SPACES: Normal. No consolidation or edema. No pneumothorax. No effusion. HEART: Normal heart size. MEDIASTINUM: No mediastinal or hilar mass. BONES/JOINTS: No acute abnormality. SOFT TISSUES: Normal. TUBES, LINES AND DEVICES: Interval removal of the right-sided infusion catheter. RAD/Chest 1 View IMPRESSION: No acute cardiopulmonary abnormality. Electronically Signed: Jarett Jacobsen MD at 11:41 EST ,
--- NOTE | 2022-04-26 11:15 | ED.VIS.STROK ---
HPI History of Present Illness Chief Complaint: Neuro S/Sx Informant: patient Onset/Context/Timing Onset: Hours (1) Context: Sudden Onset Timing: Continuous and Lasts (20-30 min) Quality and Location: Positive for Left Arm Weakness Current Severity: Gone Maximum Severity: Severe Worsened by: nothing Relieved by: nothing Associated Symptoms Associated Symptoms: Negative for Headache, Nausea, Vomiting or Chest Pain Narrative Narrative: Patient states he was using his left arm and then suddenly it was paralyzed/weak to the point where he could not use it. He was at work. EMS was called. He states now it is back to normal. He had no other symptoms. He did have some global blurry vision earlier this morning that did not last very long, he has had that off and on for several months but not very often. EMS checked his blood sugar, it was 320. They did not administer any medication such as insulin. [facility] Medical History Adenocarcinoma of pancreas Carotid artery stenosis Hearing loss Herpes zoster PIN IN LEFT ARM [place] Home Medications Digestive Enzymes(mal,lac,inv) 2 tab PO/SL TIDCM DIGESTION 04/26/22 [History Last Taken Unknown] Allergy/AdvReac Type Severity Reaction Status Date / Time No Known Allergies Allergy Verified 04/26/22 11:03 Family History Son No problems noted. Sister Diabetes Mother CAD (coronary artery disease) Grandmother Breast cancer Surgical History History of cholecystectomy whipple surgery Social History Smoking Status: Never smoker alcohol intake: current alcohol intake frequency: holidays/special occasions only substance use type: does not use ROS ROS ED Constitutional Constitutional ED: Denies chills or fever(s) Eyes Eyes: Reports blurry vision bilateral (Earlier, presently gone, but occurred during the evaluation again transiently, with all visual chase intact while blurry); Denies change in vision or diplopia ENT ENT ED: Denies rhinorrhea or sore throat Cardiovascular Cardiovascular: Denies chest pain or palpitations Respiratory/Chest Respiratory/Chest: Denies cough or dyspnea Gastrointestinal Gastrointestinal: Denies abdominal pain, diarrhea, nausea or vomiting Genitourinary Genitourinary ED: Denies dysuria or hematuria Musculoskeletal Musculoskeletal: Denies back pain or neck pain Integumentary Denies abscess or rash Neurologic Neurologic: Reports weakness; Denies headache(s) or paresthesias Psychiatric Psychiatric: Denies anxiety or suicidal thoughts Endocrine Endocrinology: Reports polydipsia and other Details: Significant increased thirst for the past month or so ; Denies polyuria EXAM Physical Exam Const Vital Signs: 04/26/22 10:56 04/26/22 11:04 Temperature 96.6 F L Temperature Source Temporal Pulse Rate 66 Respiratory Rate 18 Blood Pressure 146/96 H Blood Pressure Mean 112 Pulse Ox 100 100 Oxygen Delivery Method Room Air Room Air Positive well nourished and well developed General Appearance ED: well developed and NAD HEENT Reports moist mucous membranes normocephalic and atraumatic Eyes PERRL and EOMs intact bilaterally Neck full ROM and supple Resp normal respiratory effort and clear to auscultation bilaterally Cardio regular rate, regular rhythm and no murmurs GI non-tender and non-distended Auscultation: normoactive bowel sounds Palpation: soft Back/Spine no CVA tenderness General Back: other FROM Extremity normal to inspection General Extremety ED: Negative for edema, pulses abnormal or tenderness General Extremity: Negative for edema or pulses abnormal Neuro oriented x3, CN's II-XII intact bilaterally and no sensory deficits noted Sensorium / Orientation: awake and alert Motor Exam: strength 5/5 throughout Skin no rashes or lesions noted and no wounds NIHSS NIHSS Initial: 1a Level of Consciousness: 0 1b LOC Questions (Score 2 if aphasic/stupor): 0 1c LOC Commands (Only score 1st attempt): 0 2 Best Gaze (If aphasic, use reflexive mvmts.): 0 3 Visual: 0 4 Facial Palsy: 0 5 Motor Arm Right (UN = amputation/fusion): 0 5 Motor Arm Left: 0 6 Motor Leg Right: 0 6 Motor Leg Left: 0 7 Limb ataxia (Only + if out of proportion): 0 8 Sensory (Aphasia/stupor=0 or 1, coma=2): 0 9 Best Language: 0 10 Dysarthria (mute, coma=2, intubated=UN): 0 11 Extinction and Inattention (only scored if +): 0 Total Score: 0 MDM MDM MDM Narrative Medical decision making narrative: Stroke work-up ordered, but I did not call a team since the patient symptoms are completely resolved and he is more likely a TIA at this point, not a tPA candidate for that. He is not a known diabetic, but he has had polydipsia, he has been urinating quite a bit every morning but not necessarily urinating more than he usually does or more often to his knowledge. I discussed with him this is consistent with diabetes, it may or may not be related to the fact that he had a Whipple procedure for pancreatic cancer remotely. Work-up shows that his potassium is very low at 2.4, however this does not usually cause focal paralysis, more generalized weakness/paralysis if diagnosis was periodic hypokalemic paralysis. We will start treating this, and admit him to the hospital. My interpretation of the CT agrees with that of the radiologist. CT is negative for anything acute. Appears blood sugar is 167 on his chemistry panel. Why this is somewhat lower than just prior to getting here at 320 is unclear at this time. Lab Data Attestation: I reviewed the patient's lab results. Labs: Laboratory Results - last 24 hr 04/26/22 04/26/22 04/26/22 11:00 11:00 11:00 WBC 3.1 L RBC 3.72 L Hgb 12.6 L Hct 36.1 L MCV 97.0 H MCH 33.9 H MCHC 34.9 RDW Std Deviation 49.6 H RDW Coeff of [place] 13.9 Plt Count 212 MPV 8.6 Immature Gran % (Auto) 0.000 Neut % (Auto) 56.2 Lymph % (Auto) 23.9 [place] % (Auto) 8.8 Eos % (Auto) 10.1 H Baso % (Auto) 1.0 Absolute Neuts (auto) 1.7 L Absolute Lymphs (auto) 0.73 L Nucleated RBC % 0 PT 13.9 INR 1.1 APTT 24.6 Sodium 143 Potassium 2.4 L* Chloride 114 H Carbon Dioxide 25.0 Anion Gap 4 L BUN 15 Creatinine 0.87 Estim Creat Clear Calc 76.40 Est GFR (MDRD) Af Amer 112 Est GFR (MDRD) Non-Af 92 BUN/Creatinine Ratio 17.2 Glucose 167 H Calcium 8.1 L Troponin I High Sens 11 Radiography Diagnostic Testing: Clinical Impression(s) from Imaging Studies Brain CT 04/26/22 11:01 IMPRESSION: 1. No acute intracranial abnormality. 2. Senescent changes. Aspect score 10 Electronically Signed: Jarett Jacobsen MD at 11:33 EST , ADDENDUM: 04/26/22 1146 IMPRESSION: 1. No acute intracranial abnormality. 2. Senescent changes. Aspect score 10 N.B. : The above Results were Read Back by Jarett Jacobsen MD to Armando Chan MD, and understanding confirmed on 04/26/2022 11:39:43 (ET). Electronically Signed: Jarett Jacobsen MD at 11:33 EST , Chest X-Ray 04/26/22 11:15 IMPRESSION: No acute cardiopulmonary abnormality. Electronically Signed: Jarett Jacobsen MD at 11:41 EST , Rhythm Strip Rhythm Strip: Sinus Rhythm Rate: 63 Ectopy: None EKG Initial EKG: Attestation: I personally reviewed and interpreted this EKG as follows: Interpretation: Sinus Rhythm and No Acute Injury Pattern Stroke Documentation Questions Stroke Team Activated: No (sx resolvedm, nihss 0) Was Patient considered for Endovascular Intervention?: No-CTA not indicated (Symptoms resolved, no bulbar/cortical symptoms) IV Alteplase (t-PA) Administered: No (Symptoms resolved) Discharge Plan Dx/Rx/DC Orders Clinical Impression: Brain TIA, Hypokalemia, Hyperglycemia Disposition Disposition: Acute Care Hospital [facility]
[2022-04-26 11:26] LABS: International Normalized Ratio 1.1; Prothrombin Time (Protime)PT. 13.9 SECONDS (11.7-14.9)
[2022-04-26 11:27] LABS: Partial Thromboplast Time 24.6 Seconds (24.1-36.2)
[2022-04-26 11:34] LABS: Anion Gap 4 (5-15); BUN 15 mg/dL (7-18); BUN/Creat Ratio 17.2 RATIO (10-20); Calcium,Total 8.1 mg/dL (8.5-10.1); Chloride 114 mmol/L (98-107); Creatinine, Serum 0.87 mg/dL (0.70-1.30); EST Glomerular Filtration Rate 92 mL/min (>60); Est Glom Filt Rate - Afr Amer 112 mL/min (>60); Glucose 167 mg/dL (74-106); Potassium 2.4 mmol/L (3.5-5.1); Sodium Level 143 mmol/L (136-145); Troponin-I HS 11 pg/mL (3.0-78.0)
[2022-04-26] MEDS: Potassium Chloride 10mEq/100mL 10 MEQ/100 ML IV.SOLN. 100 MEQ IV BOLUS ×4 (12:43→23:15)
--- NOTE | 2022-04-26 17:02 | CT_ITS ---
INDICATION: LEFT ARM WEAKNESS EXAMINATION: CT BRAIN WITH CONTRAST TECHNIQUE: Noncontrast axial images were obtained of the brain. Subsequently, routine carotid CT angiogram protocol was performed without and with IV contrast. In addition, images were obtained of the [place]. NASCET criteria using the distal ICAs for comparison were used for evaluation of stenoses. 3D reconstructions were reviewed. A radiation dose optimization technique was used for this scan. IV Contrast dosage and agent: COMPARISON: None. FINDINGS: --CT BRAIN: BRAIN PARENCHYMA: No intra- or extra-axial hemorrhage. No evidence of acute infarct. No intracranial mass or mass effect. There is preservation of the lopez/white matter interface. Posterior fossa structures are unremarkable. CSF SPACES: Mild atrophy and periventricular white matter ischemic changes. Basal cisterns are patent. CALVARIUM, SKULL BASE, PARANASAL SINUSES AND MASTOID AIR CELLS: Clear. No discrete lytic or blastic abnormalities. ASPECTS Score for Acute Strokes: 10 --CTA NECK: AORTIC ARCH AND BRANCHES: Normal anatomy, patent. RIGHT CCA: No occlusion, significant stenosis or dissection. Moderate calcific plaquing of the right carotid bulb RIGHT ICA: Severe calcific plaquing of the origin of the right internal carotid creating borderline hemodynamically significant stenosis LEFT CCA: Minor calcific plaquing without occlusion, significant stenosis or dissection. LEFT ICA: No occlusion, significant stenosis or dissection. RIGHT VERTEBRAL ARTERY: No occlusion, significant stenosis or dissection. LEFT VERTEBRAL ARTERY: No occlusion, significant stenosis or dissection. NECK SOFT TISSUES: Unremarkable. --CTA HEAD: --Anterior circulation: ICAs: No significant stenosis at the intracranial/visualized segments. ACAs: No significant stenosis at the visualized segments. ACOM: Present. MCAs: No significant stenosis at the visualized segments. --Posterior circulation: PCOMs: Normal left posterior communicating artery and absence of the right posterior communicating artery public policy associate: Left posterior cerebral is normal.. origin of the right posterior cerebral artery BASILAR ARTERY: No significant stenosis. VERTEBRAL ARTERIES: No significant stenosis at the intradural/visualized segments. No evidence of intracranial aneurysm or vascular malformation. CT/CTA Head AND Neck W/ Contrast IMPRESSION: Mild atrophy and periventricular white matter ischemic changes. No acute bleed If concern for acute infarct MRI recommended No significant atherosclerotic disease of the brain Atherosclerotic changes of the neck more severe on the right with borderline hemodynamically significant stenosis of the origin of the internal carotid. .. Catheter angiography would be helpful for further evaluation if clinically warranted Electronically Signed: Elijah Marsh MD at 21:04 EST ,
[2022-04-26] MEDS: KCL 20MEQ in 0.9% NS 20 MEQ/1,000 ML IV.SOLN. 75 MEQ IV (18:44)
[2022-04-26] MEDS: Potassium Chloride Oral Tablet 20 MEQ 40 MEQ PO (18:44)
--- NOTE | 2022-04-26 19:29 | MRI_ITS ---
INDICATION: left arm weakness EXAMINATION: MRI - MR Brain W/O Contrast TECHNIQUE: MRI examination of the brain obtained with standard protocol clearly multiplanar multiecho noncontrast imaging. IV Contrast Dosage and Agent: None. COMPARISON: 05/27/2020 MRI, and CT examination of 04/26/2022 FINDINGS: HEMISPHERES, CEREBELLUM AND BRAINSTEM: 1. The cerebral parenchyma, ventricular system and gyral pattern have normal configuration. Mild involutional changes and chronic microvascular deep white matter disease is present. 2. Current examination remarkable for a subtle area of fluid restriction along the subependymal surface of the atrium of the RIGHT lateral ventricle measuring approximately 5 mm which matched 80 cc abnormality consistent with a small focal acute nonhemorrhagic lacunar infarct.. 3. No other intraparenchymal mass, hemorrhage, or acute territorial infarct. 4. The cerebellum, brainstem, basilar and suprasellar cisterns have normal appearance. No Chiari malformation. PITUITARY: Infundibulum and pituitary have normal configuration. Midline structures appear normal. CSF SPACES: Appropriate for age. No hydrocephalus. Basal cisterns are patent. VESSELS: 1. There are normal flow voids noted in the great vessels at the skull base ORBITS AND PARANASAL SINUSES: 1. Both globes, extraocular muscles, optic nerves and retrobulbar fat appear unremarkable. 2. Paranasal sinuses are clear. BONY ELEMENTS: Bony elements of the cranial vault, facial skeleton and skull base have normal appearance. SCALP AND SOFT TISSUES: Normal appearance of the soft tissues of the scalp and the visualized face OTHER: None MRI/Brain without Contrast IMPRESSION: 1. There is a subtle area of fluid restriction along the subependymal surface of the RIGHT lateral ventricle measuring approximately 5 mm consistent with a acute nonhemorrhagic lacunar infarct 2. No other evidence mass, hemorrhage, or acute territorial infarct. 3. Chronic microvascular deep white matter changes are present. Electronically Signed: Torsten Layton MD at 20:56 EST ,
--- NOTE | 2022-04-26 20:04 | HP.PCM.HOS_ITS ---
HPI - General General Date of Admission: 04/26/22 Date of Service: 04/26/22 Chief Complaint: Weakness in the left arm and hand, paralysis of the left arm and hand HPI Narrative MOUSTAPHA VASQUEZ, is a 71 M who presents to the emergency room at [facility] after being brought in by squad, patient was at a restaurant earlier today and suddenly noticed that his left hand would not function, then he noticed he was unable to move his left arm. The squad was called, patient had no problems with speech or vision, he had no problems on his right side. Patient takes no medications except for pancreatic enzymes which he gets over-th [id number] has had a history 2 years ago of pancreatic cancer and was treated with radiation therapy, chemotherapy, and surgical resection. He has not had a recurrence of the cancer. By the time the patient got to the emergency room, he stated that his left hand and arm were functioning properly, labs obtained in the emergency room showed a white blood cell count of 3.1, hemoglobin was 12.6, chemistry panel was abnormal for potassium of 2.4, patient's glucose was 167. Patient had a CT of the brain which showed no pathology. Patient's NIH score was 0. Patient was admitted to PCU, he will be given IV potassium and labs will be monitored, I do not think it necessary at this point to perform neurochecks-the patient's NIH score is 0, he will undergo an MRI of the brain and a CT of the head and neck, I have elected to place the patient on an aspirin a day, I will obtain lipid profile. [facility] Medical History Adenocarcinoma of pancreas Carotid artery stenosis Hearing loss Herpes zoster PIN IN LEFT ARM [place] Home Medications Digestive Enzymes(mal,lac,inv) 2 tab PO/SL TIDCM DIGESTION 04/26/22 [History Last Taken Unknown] Allergy/AdvReac Type Severity Reaction Status Date / Time No Known Allergies Allergy Verified 04/26/22 11:03 Family History Son No problems noted. Sister Diabetes Mother CAD (coronary artery disease) Grandmother Breast cancer Surgical History History of cholecystectomy whipple surgery Social History Smoking Status: Never smoker alcohol intake: current alcohol intake frequency: holidays/special occasions only substance use type: does not use ROS Constitutional Constitutional: Denies anorexia, change in weight, chills, fatigue, fever(s), night sweats or weakness Eyes Eyes: Denies blurry vision, change in vision, discharge from eye(s) or eye pain Cardiovascular Cardiovascular: Denies chest pain, claudication, edema or palpitations Respiratory/Chest Respiratory/Chest: Denies cough, hemoptysis, shortness of breath at rest or shortness of breath with exertion Gastrointestinal Gastrointestinal: Denies abdominal pain, constipation, diarrhea, hematemesis, hematochezia, melena, nausea or vomiting Genitourinary Genitourinary: Denies dysuria, hematuria, urinary frequency, urinary hesitancy, urinary incontinence or urinary urgency Musculoskeletal Musculoskeletal: Denies back pain, joint pain, joint stiffness, joint swelling, myalgias or neck pain Neurologic Neurologic: Reports focal weakness; Denies abnormal gait, abnormal speech, dizziness, headache(s), loss of vision, numbness, other visual disturbances, paresthesias, syncope or tingling Psychiatric Psychiatric: Denies anxiety, cognitive impairment, depression, irritability, mood swings or suicidal ideation Endocrine Endocrinology: Denies change in body appearance, cold intolerance, excessive sweating, heat intolerance, polydipsia or polyuria Hematologic/Lymphatic Hematologic/Lymphatic: Denies none, anemia, easy bleeding, easy bruising or lymphadenopathy Allergic/Immunologic Allergic/Immunologic: Denies rhinitis, urticaria, eczemia or asthma Vital Signs Vital Signs Vital Signs: 04/26/22 10:56 04/26/22 11:04 04/26/22 11:34 Temperature 96.6 F L Temperature Source Temporal Pulse Rate 66 67 Respiratory Rate 18 16 Respiratory Effort Respiratory Depth Respiratory Pattern Blood Pressure 146/96 H 134/76 H Blood Pressure Mean 112 95 Blood Pressure Source Blood Pressure Position Blood Pressure Location Pulse Ox 100 100 99 Oxygen Delivery Method Room Air Room Air Room Air 04/26/22 12:04 04/26/22 12:34 04/26/22 13:08 Temperature 96.6 F L Temperature Source Temporal Pulse Rate 66 61 Respiratory Rate 16 14 Respiratory Effort Respiratory Depth Respiratory Pattern Blood Pressure 128/81 H 145/83 H Blood Pressure Mean 96 103 Blood Pressure Source Blood Pressure Position Blood Pressure Location Pulse Ox 98 99 99 Oxygen Delivery Method Room Air Room Air Room Air 04/26/22 13:10 04/26/22 14:00 04/26/22 17:18 Temperature 97.9 F 97.8 F Temperature Source Oral Oral Pulse Rate 61 60 Respiratory Rate 16 16 Respiratory Effort Normal Non-Labored Respiratory Depth Normal Respiratory Pattern Normal Blood Pressure 151/81 H 134/81 H Blood Pressure Mean 104 93 Blood Pressure Source Monitor Monitor Blood Pressure Position Semi-Fowlers Semi-Fowlers Blood Pressure Location Left Arm Left Arm Pulse Ox 100 99 Oxygen Delivery Method Room Air Room Air Room Air 04/26/22 14:03 Temperature Temperature Source Pulse Rate 64 Respiratory Rate Respiratory Effort Respiratory Depth Respiratory Pattern Blood Pressure Blood Pressure Mean Blood Pressure Source Blood Pressure Position Blood Pressure Location Pulse Ox Oxygen Delivery Method Weight Weight: 62 kg Body Mass Index (BMI) 20.7 Physical Exam Const alert, oriented x3, no apparent distress, average body habitus and healthy appearing General Appearance: cooperative, well kempt and well developed Orientation / Consciousness: awake, oriented to person, oriented to place and oriented to time HEENT normocephalic, head/scalp atraumatic, hearing grossly normal bilaterally and moist oral mucous membranes Eyes PERRL, EOMs intact bilaterally and conjunctivae normal Neck supple, no JVD, thyroid normal and no carotid bruits General: trachea midline Resp normal respiratory effort, no retractions, no use of accessory muscles and clear to auscultation bilaterally Auscultation: Negative for rales, rhonchi or wheezes Cardio regular rate, regular rhythm, S1 normal heart sound, S2 normal heart sound, no murmurs, no rub and no gallops GI normal to inspection, nondistended, normoactive bowel sounds, soft to palpation, non-tender and non-distended Extremity no clubbing, cyanosis or edema Skin no rashes or lesions noted General Skin Exam: no breakdown Neuro oriented x3, CN's II-XII intact bilaterally, no focal motor deficits and no sensory deficits noted Sensorium / Orientation: awake, alert, oriented to person, oriented to place and oriented to time Speech: speech normal Psych affect normal Results Lab / Micro Data Result Diagrams: 04/26/22 11:00 04/26/22 11:00 Labs: Laboratory Results - last 24 hr 04/26/22 11:00: WBC 3.1 L, RBC 3.72 L, Hgb 12.6 L, Hct 36.1 L, MCV 97.0 H, MCH 33.9 H, MCHC 34.9, RDW Std Deviation 49.6 H, RDW Coeff of [place] 13.9, Plt Count 212, MPV 8.6, Immature Gran % (Auto) 0.000, Neut % (Auto) 56.2, Lymph % (Auto) 23.9, [place] % (Auto) 8.8, Eos % (Auto) 10.1 H, Baso % (Auto) 1.0, Absolute Neuts (auto) 1.7 L, Absolute Lymphs (auto) 0.73 L, Nucleated RBC % 0 04/26/22 11:00: PT 13.9, INR 1.1, APTT 24.6 04/26/22 11:00: Sodium 143, Potassium 2.4 L*, Chloride 114 H, Carbon Dioxide 25.0, Anion Gap 4 L, BUN 15, Creatinine 0.87, Estim Creat Clear Calc 76.40, Est GFR (MDRD) Af Amer 112, Est GFR (MDRD) Non-Af 92, BUN/Creatinine Ratio 17.2, Glucose 167 H, Calcium 8.1 L, Troponin I High Sens 11 Rhythm Strip Rhythm Strip: Sinus Rhythm Rate: 63 Ectopy: None Radiology Impression Brain CT 04/26/22 11:01 IMPRESSION: 1. No acute intracranial abnormality. 2. Senescent changes. Aspect score 10 Electronically Signed: Jarett Jacobsen MD at 11:33 EST Reading Location ID and State: [facility] / MD Tel , Service support , ADDENDUM: 04/26/22 1146 IMPRESSION: 1. No acute intracranial abnormality. 2. Senescent changes. Aspect score 10 N.B. : The above Results were Read Back by Jarett Jacobsen MD to Armando Chan MD, and understanding confirmed on 04/26/2022 11:39:43 (ET). Electronically Signed: Jarett Jacobsen MD at 11:33 EST , Chest X-Ray 04/26/22 11:15 IMPRESSION: No acute cardiopulmonary abnormality. Electronically Signed: Jarett Jacobsen MD at 11:41 EST Reading Location ID and State: [address] [place] [address] Tel , Service support , Assessment & Plan Assessment/Plan (1) Stroke-like symptoms: PLAN: Plan 1. Transient paralysis of the left arm-etiology unclear at this point, patient appears back to baseline at this time, patient's NIH score is 0. Patient will be admitted to PCU, I do not feel he needs neurochecks at this time, he will undergo an MRI of the brain as well as a CT of the head and neck. I have elected to place the patient on aspirin-he is not taking this at home, I have ordered a lipid profile and will not start a statin at this time. I do not think the patient needs to see PT, OT or speech therapy at this time #2 hypokalemia-etiology unclear at this time, patient will be given potassium supplementation and a BMP will be rechecked tomorrow, I will draw a serum magnesium on the patient #3 pancreatic insufficiency-patient takes [id number] pancreatic enzymes #4 hyperglycemia-patient's blood sugar in the emergency room was slightly elevated, the squad got a different reading-they got a highly elevated blood sugar of 320, patient has never had diabetes in the past, patient will get another BMP tomorrow morning, if the blood sugar is high tomorrow morning he will need hemoglobin A1c ordered. Total clinical time spent by myself addressing the patient's medical issues, reviewing all the data, and collaborating with patient's care team: 75 minutes Charges/Coding Visit Charges Inpatient E&M: 26313 Init Hosp L3
[2022-04-26 21:48] LABS: Cholesterol 119 mg/dL (200); High Density Lipoprotein 53 mg/dL; Magnesium 2.2 mg/dL (1.6-2.6); Triglycerides 92 mg/dL; Very Low Density Lipoprotein 18 mg/dL (5-40)
[2022-04-27] VITALS (7 sets, daily range): BP systolic 122–141; BP diastolic 70–85; PULSE 56–66; RESP 14–18; TEMP 36.4–36.7; O2SAT 97–100; BMI 20.7
--- NOTE | 2022-04-27 07:58 | ECHOD_ITS ---
Reason For Study: tia Procedure This was a 2D Doppler, Color Flow transthoracic echocardiogram. Exam performed portable in patient room. Left Ventricle Normal LV size. The estimated ejection fraction is 60 %. No evidence for diastolic dysfunction. No regional wall motion abnormalities noted. Right Ventricle Normal RV size. Normal systolic function. Atria Normal left atrium. Normal right atrium. No doppler evidence for ASD. Mitral Valve There is mild to moderate mitral annular calcification. There is no mitral valve stenosis. No mitral valve insufficiency. Tricuspid Valve There is no tricuspid stenosis. Unable to estimate RV systolic pressure due to inadequate jet, pulmonary artery pressure probably normal. Aortic Valve Trisinus/trileaflet aortic valve. There is no aortic stenosis. No aortic valve insufficiency. Pulmonic Valve There is no pulmonic valvular stenosis. No pulmonic valve insufficiency. Great Vessels Normal aortic root. Pericardium/Pleural No pericardial effusion. MMode/2D Measurements & Calculations LVIDd: 4.5 cm IVSd: 0.72 cm LAV(MOD-sp4): 40.5 ml LVIDs: 3.1 cm LVPWd: 0.88 cm FS: 31.3 % LVAd ap4: 29.3 cm2 SV(MOD-sp4): 60.0 ml SV(sp4-el): 64.0 ml LVLd ap4: 8.1 cm EDV(MOD-sp4): 84.9 ml EDV(sp4-el): 89.9 ml LVAs ap4: 13.3 cm2 LVLs ap4: 5.8 cm ESV(MOD-sp4): 24.9 ml ESV(sp4-el): 25.8 ml EF(MOD-sp4): 70.6 % EF(sp4-el): 71.3 % LA A4 area: 16.6 cm2 RA A4 area: 10.9 cm2 Time Measurements MV dec time: 0.24 sec Doppler Measurements & Calculations MV E max scott: 52.5 cm/sec Lat Peak E' Scott: 12.7 cm/sec Med Peak E' Scott: 8.6 cm/sec MV A max scott: 51.3 cm/sec E/E' lat: 4.1 E/E' med: 6.1 MV E/A: 1.0 MV V2 max: 66.0 cm/sec Ao V2 max: 113.1 cm/sec MV max P.7 mmHg MV dec slope: 239.5 cm/sec2 Ao max P.1 mmHg MV V2 mean: 38.9 cm/sec Ao V2 mean: 76.6 cm/sec MV mean P.72 mmHg Ao mean P.7 mmHg MV V2 VTI: 19.5 cm Ao V2 VTI: 26.1 cm AV (velocity ratio): 0.74 LV V1 max: 82.2 cm/sec LV V1 max P.7 mmHg LV V1 mean P.4 mmHg LV V1 mean: 56.1 cm/sec LV V1 VTI: 19.2 cm ECHO/Echo Complete Interpretation Summary The estimated ejection fraction is 60 %. No evidence for diastolic dysfunction. Ordering Physician: Cosmo Hernandez Referring Physician: Anjelica Mendoza M.D. Performed By: Lucia Barrera RCS
[2022-04-27 08:09] LABS: Anion Gap 7 (5-15); BUN 11 mg/dL (7-18); BUN/Creat Ratio 13.8 RATIO (10-20); Calcium,Total 7.9 mg/dL (8.5-10.1); Chloride 118 mmol/L (98-107); EST Glomerular Filtration Rate 102 mL/min (>60); Est Glom Filt Rate - Afr Amer 123 mL/min (>60); Estimated Creatinine Clearance 76.42 ml/min; Glucose 107 mg/dL (74-106); Potassium 2.6 mmol/L (3.5-5.1); Sodium Level 146 mmol/L (136-145)
[2022-04-27 08:31] LABS: Magnesium 2.1 mg/dL (1.6-2.6); Phosphorus 3.1 mg/dL (2.5-4.9)
[2022-04-27] MEDS: KCL 20MEQ in 0.9% NS 20 MEQ/1,000 ML IV.SOLN. 75 MEQ IV (09:01)
[2022-04-27] MEDS: Potassium Chloride Oral Tablet 20 MEQ 60 MEQ PO (10:19)
--- NOTE | 2022-04-27 10:20 | CASEMGMT ---
RN CM Face to Face with patient for initial transition planning/care coordination assessment. RN CM introduced self and role at [facility]. Patient lying in bed, alert and oriented. Patient willing to participate in assessment and is able to answer all questions appropriately. Care providers, pharmacy, and demographics verified. Patient wishes to discharge home, denies need for home health at this time. Patient states he has no further needs or concerns at this time. CM to follow for discharge planning needs that may arise. PCP: Reji Specialists: none Preferred Pharmacy: [facility]; [facility] [place] at [place] Insurance: [employer] Prescription Benefit: yes Living Will/HPOA: patient is not sure believes it would be his son LNOK: sons Living Arrangements: Patient lives in a single story home with 3 steps with no railing, no step at front door. Patient lives next door to son. Patient states he is independent at home. Transportation: self, son DME/HHC: Patient denies DME in the home. Patient was previously at [facility]. No previous HHC. Disposition Plan: Patient to discharge home with family support and follow-up plans in place. Leti BENITEZ, RN, CM
[2022-04-27] MEDS: Aspirin 81 MG TAB.CHEW PO (10:22)
--- NOTE | 2022-04-27 12:25 | DCINST_ITS ---
Discharge Instructions Diet Discharge Diet: Low fat / Low cholesterol Activity Discharge Activity: Return to Normal Activity Dressing / Incision Call your doctor if you observe: Fever of 101 or Higher, Shortness of breath, Dizziness, Fainting spells, Swelling in the ankles, Chest pain and Increased palpitations (irregular heartbeat) Follow Up Care Test Results: Test results from this visit will be discussed in further detail at your follow- up appointment, if applicable. Discharge Plan Admission Admit Date/Time: 04/26/22 16:18 Attending Provider: Cosmo Hernandez Primary Care Provider: Anjelica Mendoza Consulting Providers: Justo Crum Additional Instructions / Restrictions: Follow-up with your PCP in 3 to 5 days to evaluate your potassium, will discharge on potassium replacement. Discharge Orders/Prescriptions Prescriptions: New aspirin 81 mg Tablet,Chewable 81 mg PO BREAKFAST Qty: 30 0RF potassium chloride 20 mEq tablet extended release 20 meq PO DAILY Qty: 30 0RF atorvastatin [Lipitor] 40 mg tablet 40 mg PO QHS Qty: 30 0RF Continued Digestive Enzymes(mal,lac,inv) 2 tab PO/SL TIDCM Referrals / Follow Up: Anjelica Mendoza MD [Primary Care Provider] - Within 1 Week Roger Butler MD [Non-Staff] - Within 3 Months Disposition Disposition (needs filled in before D/C Order can be placed): Home, Self Care
--- NOTE | 2022-04-27 15:17 | DS.PCM_ITS ---
Providers Date of Admission: 04/26/22 Primary Care Physician: Dr. Anjelica Mendoza MD Reason For Visit: TIA, HYPOKALEMIA Diagnosis Discharge Diagnosis (1) Stroke-like symptoms: Status: Inactive Code(s): R29.90 - Unspecified symptoms and signs involving the nervous system Medications at Discharge Home Medications Digestive Enzymes(mal,lac,inv) 2 tab PO/SL TIDCM DIGESTION 04/26/22 aspirin 81 mg chewable tablet 81 mg PO BREAKFAST #30 tabs 04/27/22 atorvastatin 40 mg tablet (Lipitor) 40 mg PO QHS #30 tabs 04/27/22 potassium chloride 20 mEq tablet,extended release 20 meq PO DAILY #30 tabs 04/27/22 Hospital Course Operations None Procedures 2-D Echocardiogram Summary of Care Provided Minutes Spent on Discharge: 38 Hospital Course: Per HPI: MOUSTAPHA VASQUEZ, is a 71 M who presents to the emergency room at [facility] after being brought in by squad, patient was at a restaurant earlier today and suddenly noticed that his left hand would not function, then he noticed he was unable to move his left arm.? The squad was called, patient had no problems with speech or vision, he had no problems on his right side.? Patient takes no medications except for pancreatic enzymes which he gets [id number]-patient has had a history 2 years ago of pancreatic cancer and was treated with radiation therapy, chemotherapy, and surgical resection.? He has not had a recurrence of the cancer. By the time the patient got to the emergency room, he stated that his left hand and arm were functioning properly, labs obtained in the emergency room showed a white blood cell count of 3.1, hemoglobin was 12.6, chemistry panel was abnormal for potassium of 2.4, patient's glucose was 167.? Patient had a CT of the brain which showed no pathology. Patient's NIH score was 0.? Patient was admitted to PCU, he will be given IV potassium and labs will be monitored, I do not think it necessary at this point to perform neurochecks-the patient's NIH score is 0, he will undergo an MRI of the brain and a CT of the head and neck, I have elected to place the patient on an aspirin a day, I will obtain lipid profile. Hospital Course: 1. Right-sided lacunar infarct?71-year-old male presented to the hospital after he had an episode yesterday of his left arm being completely paralyzed for about 5 to 10 minutes. He states that he was in breakfast and his left hand was paralyzed and then his left arm was paralyzed, he could not move it. When he presented to the ER he was an NIH of 0 at that time a CTA was not done however a CTA was done on admission which was unremarkable. An MRI was obtained which demonstrated right lacunar infarct. An echo was obtained after his MRI came back positive for stroke which was unremarkable. Given the fact that his symptoms are completely resolved and he did not take any that home, and given the current volume in the hospital I elected to discharge on aspirin and Lipitor, despite a normal lipid panel, and have him follow-up as an outpatient with neurology. I discussed with him the plan for discharge today and he expressed understanding of the risk benefits of going home and would like to go home today. I discussed with him the possibility of having [facility] neurology consulted but that it could potentially delay discharge and he would prefer to go home today. Of note he was also hypokalemic and he states that he was supposed to be on potassium pills but he stopped taking them he was repleted today with 60 mEq p.o. and I did discharge him on 20 mEq p.o. potassium chloride and I discussed with him the need to follow-up with his PCP as an outpatient for repeat lab work to monitor his electrolytes. He had resolution of his symptoms and required no further interventions which is why he was discharged earlier than expected. Physical Exam Narrative General: Alert, Oriented x3, Cooperative, No apparent distress HEENT: Atraumatic, PERRLA, EOMI, Normocephalic Oral: Moist Mucosa Neck: Supple, No JVD Lungs: Clear to auscultation, Normal air movement, No rhonchi, No wheeze, No rales Cardiovascular: Regular rate, Regular Rhythm, Normal S1, Normal S2, No murmurs Abdomen: Soft, Non Tender, Non-Distended, No Hepato-splenomegaly Extremities: No edema, Capillary Refill Less than 3 Seconds Skin: No rashes, No breakdown Musculoskeletal: No Tenderness to Palpation of Joints or Extremities Neurological: Cranial nerves II-XII grossly intact, Motor Exam 5/5 strength throughout, Sensory exam intact to light touch and pain Psych/Mental Status: Normal Affect, Appropriate Weight / BMI Weight Weight: 136 lb 10.986 oz Body Mass Index (BMI) 20.7 ABG / Lab / Microbiology Data Result Diagrams: 04/26/22 11:00 04/27/22 06:05 Laboratory: Laboratory Results - last 24 hr 04/26/22 11:00: Magnesium 2.2, Triglycerides 92, Cholesterol 119, LDL Cholesterol 48, VLDL Cholesterol 18, HDL Cholesterol 53 04/27/22 06:05: Sodium 146 H, Potassium 2.6 L*, Chloride 118 H, Carbon Dioxide 21.0, Anion Gap 7, BUN 11, Creatinine 0.80, Estim Creat Clear Calc 76.42, Est GFR (MDRD) Af Amer 123, Est GFR (MDRD) Non-Af 102, BUN/Creatinine Ratio 13.8, Glucose 107 H, Calcium 7.9 L 04/27/22 06:05: Phosphorus 3.1, Magnesium 2.1 Radiography Diagnostic Testing: Radiology Impression Head/Neck CTA 04/26/22 17:02 IMPRESSION: Mild atrophy and periventricular white matter ischemic changes. No acute bleed If concern for acute infarct MRI recommended No significant atherosclerotic disease of the brain Atherosclerotic changes of the neck more severe on the right with borderline hemodynamically significant stenosis of the origin of the internal carotid. .. Catheter angiography would be helpful for further evaluation if clinically warranted Electronically Signed: Elijah Marsh MD at 21:04 EST , Brain MRI 04/26/22 19:29 IMPRESSION: 1. There is a subtle area of fluid restriction along the subependymal surface of the RIGHT lateral ventricle measuring approximately 5 mm consistent with a acute nonhemorrhagic lacunar infarct 2. No other evidence mass, hemorrhage, or acute territorial infarct. 3. Chronic microvascular deep white matter changes are present. Electronically Signed: Torsten Layton MD at 20:56 EST , Echocardiogram 04/27/22 07:58 Interpretation Summary The estimated ejection fraction is 60 %. No evidence for diastolic dysfunction. Ordering Physician: Cosmo Hernandez Referring Physician: Anjelica Mendoza M.D. Performed By: Lucia Barrera RCS D/C Instructions Discharge Diet: Low fat / Low cholesterol Call your doctor if you observe: Fever of 101 or Higher, Shortness of breath, Dizziness, Fainting spells, Swelling in the ankles, Chest pain and Increased palpitations (irregular heartbeat) Meaningful Use Info Meaningful Use Diagnoses (Choose all that apply): None applicable Discharge Plan Admission Admit Date/Time: 04/26/22 16:18 Attending Provider: Cosmo Hernandez Primary Care Provider: Anjelica Mendoza Consulting Providers: Justo Crum Instructions Additional Instructions / Restrictions: Follow-up with your PCP in 3 to 5 days to evaluate your potassium, will discharge on potassium replacement. Discharge Orders/Prescriptions Prescriptions: New aspirin 81 mg Tablet,Chewable 81 mg PO BREAKFAST Qty: 30 0RF potassium chloride 20 mEq tablet extended release 20 meq PO DAILY Qty: 30 0RF atorvastatin [Lipitor] 40 mg tablet 40 mg PO QHS Qty: 30 0RF Continued Digestive Enzymes(mal,lac,inv) 2 tab PO/SL TIDCM Referrals / Follow Up: Anjelica Mendoza MD [Primary Care Provider] - Within 1 Week Roger Butler MD [Non-Staff] - Within 3 Months Disposition Disposition (needs filled in before D/C Order can be placed): Home, Self Care Charges/Coding Visit Charges Inpatient E&M: 66656 Disch Hosp >30min
== END 2022-04-27 14:13 | disposition home or self-care (01) | DRG 66 ==
LOC: ED 11:55 → PCU 12:43
PROVIDERS: Admitting Provider Internal Medicine; Emergency Provider Emergency Medicine; PCP Internal Medicine; Visit Provider Family Medicine
DX: I63.81 Other cerebral infarction due to occlusion or stenosis of small artery (principal); G83.24 Monoplegia of upper limb affecting left nondominant side; K86.89 Other specified diseases of pancreas; E87.6 Hypokalemia; R29.700 NIHSS score 0; R73.9 Hyperglycemia, unspecified; Z79.82 Long term (current) use of aspirin; Z79.899 Other long term (current) drug therapy; Z85.07 Personal history of malignant neoplasm of pancreas; Z92.3 Personal history of irradiation; Z92.21 Personal history of antineoplastic chemotherapy; H53.8 Other visual disturbances
CPT/HCPCS: 36415; 70450; 70496; 70498; 70551; 71045; 80048; 80061; 83735; 84100; 84484; 85025; 85610; 85730; 93005; 93306; 96365; 96366; 97161; 97166; 99221; 99285; J7040; Q9967; A4216; G0378

== ENCOUNTER → 2022-05-08 | Outpatient (CLI) | payer MEDICARE, SELFPAY ==
[2022-05-08 15:39] LABS: ALB/GLOB Ratio 1.2 RATIO (0.9-2.4); AST(SGOT) 28 U/L (15-37); Alanine Aminotransfer ALT/SGPT 38 U/L (16-61); Albumin, Serum 3.6 g/dL (3.2-5.0); Alkaline Phosphatase 79 U/L (45-117); Anion Gap 9 (5-15); BUN 14 mg/dL (7-18); BUN/Creat Ratio 18.3 RATIO (10-20); Calcium,Total 8.2 mg/dL (8.5-10.1); Chloride 111 mmol/L (98-107); Creatinine, Serum 0.76 mg/dL (0.70-1.30); EST Glomerular Filtration Rate 107 mL/min (>60); Est Glom Filt Rate - Afr Amer 130 mL/min (>60); Globulin 3.1 g/dL (2.2-4.2); Glucose 98 mg/dL (74-106); Magnesium 2.1 mg/dL (1.6-2.6); Protein, Total 6.7 g/dL (6.4-8.2); Sodium Level 144 mmol/L (136-145)
== END | disposition home or self-care (01) ==
LOC: LAB 14:42
PROVIDERS: PCP Internal Medicine; Referring Provider Internal Medicine; Visit Provider Internal Medicine
DX: E87.6 Hypokalemia (principal); H53.9 Unspecified visual disturbance; R73.9 Hyperglycemia, unspecified; R19.5 Other fecal abnormalities; Z86.73 Personal history of transient ischemic attack (TIA), and cerebral infarction without residual deficits
CPT/HCPCS: 36415; 80053; 83735

== ENCOUNTER → 2022-06-29 | Outpatient (CLI) | payer MEDICARE, SELFPAY ==
[2022-06-29 09:18] LABS: Anion Gap 7 (5-15); BUN 15 mg/dL (7-18); BUN/Creat Ratio 18.7 RATIO (10-20); Calcium,Total 8.4 mg/dL (8.5-10.1); Chloride 113 mmol/L (98-107); EST Glomerular Filtration Rate 101 mL/min (>60); Est Glom Filt Rate - Afr Amer 122 mL/min (>60); Glucose 106 mg/dL (74-106); Potassium 2.8 mmol/L (3.5-5.1); Sodium Level 146 mmol/L (136-145)
== END | disposition home or self-care (01) ==
LOC: LAB 08:29
PROVIDERS: PCP Internal Medicine; Visit Provider Internal Medicine
DX: E87.6 Hypokalemia (principal)
CPT/HCPCS: 36415; 80048

== ENCOUNTER → 2022-07-17 | Outpatient (CLI) | payer MEDICARE, SELFPAY ==
[2022-07-17 10:29] LABS: Anion Gap 5 (5-15); BUN 17 mg/dL (7-18); BUN/Creat Ratio 20.3 RATIO (10-20); Calcium,Total 8.4 mg/dL (8.5-10.1); Chloride 117 mmol/L (98-107); Creatinine, Serum 0.84 mg/dL (0.70-1.30); EST Glomerular Filtration Rate 96 mL/min (>60); Est Glom Filt Rate - Afr Amer 117 mL/min (>60); Glucose 116 mg/dL (74-106); Potassium 3.2 mmol/L (3.5-5.1); Sodium Level 144 mmol/L (136-145)
== END | disposition home or self-care (01) ==
LOC: LAB 09:29
PROVIDERS: PCP Internal Medicine; Referring Provider Internal Medicine; Visit Provider Internal Medicine
DX: E87.6 Hypokalemia (principal)
CPT/HCPCS: 36415; 80048

== ENCOUNTER → 2022-09-12 | Outpatient (CLI) | payer MEDICARE, SELFPAY ==
[2022-09-12 13:08] LABS: Anion Gap 7 (5-15); BUN 17 mg/dL (7-18); BUN/Creat Ratio 20.2 RATIO (10-20); Calcium,Total 7.8 mg/dL (8.5-10.1); Chloride 115 mmol/L (98-107); Creatinine, Serum 0.84 mg/dL (0.70-1.30); EST Glomerular Filtration Rate 96 mL/min (>60); Est Glom Filt Rate - Afr Amer 116 mL/min (>60); Glucose 79 mg/dL (74-106); Potassium 2.9 mmol/L (3.5-5.1); Sodium Level 144 mmol/L (136-145)
== END | disposition home or self-care (01) ==
LOC: LAB 12:17
PROVIDERS: PCP Internal Medicine; Referring Provider Internal Medicine; Visit Provider Internal Medicine
DX: E87.6 Hypokalemia (principal)
CPT/HCPCS: 36415; 80048

== ENCOUNTER → 2023-05-09 | Outpatient (CLI) | payer MEDICARE, SELFPAY ==
--- OUTSIDE RECORDS SUMMARY | 2023-05-09 11:00 | XMS RPT_ITS | CCD ---
Author Name Unknown Address [address] [place] [address] [place] [id number] Organization [facility] Care Team Providers Care Concreter Name Role Phone SURESH CARRERA Attending Unavailable SELF, SELF Referring Unavailable NURYS HUTCHINSON Primary Care Unavailable SHANNON VASQUEZ MD Attending Unavailable SHANNON VASQUEZ MD Primary Care Unavailable SHANNON VASQUEZ MD Admitting Unavailable Results Test Name Value Interpretation Reference Range Facil ity Encounters Encounter Date Encounter Type Care Provider Facility Start: 06-09-2020 Encounter for genera l adult medical examination without abnormal findings SHANNONPRISCA VASQUEZ [facility] Start: 06-09-2020 End: 06-12-2020 Patient encounter procedure SHANNON AGUERO [facility] Start: 08-15-2019 Patient encounter procedure SURESH CARRERA Facility:[facility] Encounter for genera l adult medical examination without abnormal findings SHANNON [facility] Payers Date Payer Category Payer Unknown [id number] 1950 Unknown [id number] 1950 Unknown [id number] Medicare [id number] Summary Purpose Family History No Family History Records FoundNo Family History Records FoundNo Family History Records FoundNo Family History Records Found Advance Directives No Advanced Directives Records FoundNo Advanced Directives Records FoundNo Advanced Directives Records FoundNo Advanced Directives Records Found Hospital Course Note HNO ID: [id number] Author: Toby solis (Lynne Walker DO Service: General Surgery Author Type: Resident Type: Discharge Summary Filed: 09/07/2019 11:39 AM Note Text: Attestation signed by Navneet Benavides at 09/07/2019 11:47 AM I personally saw and examined the patient. I reviewed the resident's note. I agree with the resident's assessment and plan except as noted below. Plan of care discussed with Patient and RN DISCHARGE SUMMARY PATIENT NAME: Moustapha Vasquez Code Status: Not on file Highest Readmission Risk Score: 10 The 30 day readmissions risk score is derived from an internally validated risk model which evaluates patient level characteristics, utilization history, medication orders and lab results up until the day of discharge. Patients with a score of 40 or above are considered highest risk for readmission. Specif (more content not included)... Additional Source Comments (unrecognized sect ion and content) No Status Records FoundNo Status Records FoundNo Status Records FoundNo Status Records Found INFORMATION SOURCE (unrecogn ized section and content) DATE CREATED AUTHOR AUTHOR'S ORGANIZ ATION 09/19/2019 [facility] DATE CREATED AUTHOR AUTHOR'S ORGANIZ ATION 09/22/2019 [facility] DATE CREATED AUTHOR AUTHOR'S ORGANIZ ATION 06/21/2020 [facility] FOR RECORDS PERTAINING TO PATIENTS WHO ARE OR HAVE BEEN ENROLLED IN A CHEMICAL DEPENDENCY/SUBSTANCEABUSE PROGRAM, SOME INFORMATION MAY BE OMITTED. This clinical summary was aggregated from multiple sources. Caution should be exercised in using it in the provision of clinical care. This summary normalizes information from multiple sources, and as a consequence, information in this document may materially change the coding, format and clinical context of patient data. In addition, data may be omitted in some cases. CLINICAL DECISIONS SHOULD BE BASED ON THE PRIMARY CLINICAL RECORDS. [facility]. provides no warranty or guarantee of the accuracy or completeness of information in this document.
[2023-05-09 11:56] LABS: Urine Chloride 113 mmol/L (Not Establ.); Urine Sodium 92 mmol/L (Not Establ.)
[2023-05-09 11:58] LABS: Anion Gap 4 (5-15); BUN 16 mg/dL (7-18); BUN/Creat Ratio 18.7 RATIO (10-20); Calcium,Total 8.6 mg/dL (8.5-10.1); Chloride 115 mmol/L (98-107); Creatinine, Serum 0.86 mg/dL (0.70-1.30); EST Glomerular Filtration Rate 94 mL/min (>60); Est Glom Filt Rate - Afr Amer 114 mL/min (>60); Glucose 94 mg/dL (74-106); Magnesium 2.3 mg/dL (1.6-2.6); Potassium 3.1 mmol/L (3.5-5.1); Sodium Level 145 mmol/L (136-145)
== END | disposition home or self-care (01) ==
LOC: LAB 10:38
PROVIDERS: PCP Internal Medicine; Referring Provider Internal Medicine; Visit Provider Internal Medicine
DX: E87.6 Hypokalemia (principal)
CPT/HCPCS: 36415; 80048; 82436; 83735; 84133; 84300

== ENCOUNTER 2023-06-15 21:15 | Emergency (ER) | payer MEDICARE, SELFPAY ==
[2023-06-15 21:16] VITALS: BP 144/83; PULSE 77; RESP 16; TEMP 36.2; O2SAT 100; BMI 20.5
--- NOTE | 2023-06-15 21:27 | US_ITS ---
EXAM: US DUPLEX RIGHT LOWER EXTREMITY VEINS CLINICAL INDICATION: PAIN TECHNIQUE: Real-time duplex ultrasound scan of the right lower extremity veins integrating B-mode two-dimensional vascular structure, Doppler spectral analysis, color flow Doppler imaging and compression. COMPARISON: No relevant prior studies available. FINDINGS: DEEP VEINS: No significant abnormality. No DVT in the visualized common femoral, femoral, or popliteal veins. The veins demonstrate normal color flow, are normally compressible, with normal phasic flow and/or augmentation response. SUPERFICIAL VEINS: No significant abnormality. No thrombus in the visualized great saphenous vein. SOFT TISSUES: No significant findings. No popliteal cyst. US/Venous Duplex Imag/Limited/Uni IMPRESSION: Normal right lower extremity duplex venous ultrasound. Electronically Signed: Lacho Elizabeth DO at 21:59 EST ,
--- NOTE | 2023-06-15 22:59 | EDS_ITS ---
HPI History of Present Illness Chief Complaint: Lower Extremity Injury Informant: patient Narrative Narrative: Patient is a 72-year-old male with past medical history of pancreatic adenocarcinoma with last chemotherapy 3 years ago as well as previous TIA not on anticoagulation other than aspirin. He states that today he noticed a burning sensation along the inner aspect of his right thigh. He states there is no redness. He denies any injury or increased activity. He denies any recent travel surgery or history of DVT/PE. He denies any history of back disorders such as spinal stenosis or herniated disc. He states that the warmth sensation/burning is intermittent in nature but he was on his phone and read this could be possible to a blood clot so therefore he comes in for evaluation. [facility] Medical History Adenocarcinoma of pancreas Carotid artery stenosis Hearing loss Herpes zoster Hypokalemia PIN IN LEFT ARM Port Plalcement Home Medications Digestive Enzymes(mal,lac,inv) 2 tab PO/SL TIDCM DIGESTION 04/26/22 [History Last Taken Unknown] aspirin 81 mg chewable tablet 81 mg PO BREAKFAST #30 tabs 04/27/22 [Rx Last Taken Unknown] potassium chloride 20 mEq tablet,extended release 20 meq PO TID #270 tabs 07/17/22 [Rx Last Taken Unknown] Allergy/AdvReac Type Severity Reaction Status Date / Time No Known Allergies Allergy Verified 06/15/23 21:19 Family History Son No problems noted. Sister Diabetes Mother CAD (coronary artery disease) Grandmother Breast cancer Surgical History History of cholecystectomy whipple surgery Social History Smoking Status: Never smoker alcohol intake: current alcohol intake frequency: holidays/special occasions only substance use type: does not use ROS ROS ED Constitutional Constitutional ED: Denies chills or fever(s) Eyes Eyes: Denies change in vision ENT ENT ED: Denies sore throat Cardiovascular Cardiovascular: Denies chest pain Respiratory/Chest Respiratory/Chest: Denies cough or dyspnea Gastrointestinal Gastrointestinal: Denies abdominal pain, diarrhea, nausea or vomiting Genitourinary Genitourinary ED: Denies dysuria Musculoskeletal Musculoskeletal: Reports other Details: Positive right leg pain/burning ; Denies myalgias Integumentary Denies rash Neurologic Neurologic: Denies headache(s) Hematologic/Lymphatic Hematologic/Lymphatic: Denies easy bleeding or easy bruising EXAM Physical Exam Const Vital Signs: 06/15/23 21:16 Temperature 97.2 F L Temperature Source Temporal Pulse Rate 77 Respiratory Rate 16 Blood Pressure 144/83 H Blood Pressure Mean 103 Pulse Ox 100 Oxygen Delivery Method Room Air Positive well nourished and well developed General Appearance ED: well developed; Negative for pallor HEENT HEENT Narrative: Normocephalic atraumatic Eyes PERRL and EOMs intact bilaterally Neck supple Resp normal respiratory effort and clear to auscultation bilaterally Cardio regular rate and regular rhythm Extremity normal to inspection Extremity Narrative: Right lower extremity is neurovascularly intact. There is no asymmetric swelling no pitting edema and negative Homans' sign bilaterally. Patient reports a warm sensation along the medial aspect of his right distal thigh in the L1-3 dermatome. There is no overlying erythema or warmth no induration or fluctuance no ecchymosis noted. Neuro oriented x3, CN's II-XII intact bilaterally and no sensory deficits noted Sensorium / Orientation: alert Motor Exam: strength 5/5 throughout Psych mental status grossly normal Skin no rashes or lesions noted and no wounds General Skin Exam: Negative for jaundice or pallor MDM MDM MDM Narrative Medical decision making narrative: Patient presented to ER with stable vitals and reported a intermittent warm sensation to the medial aspect of his right thigh. He has no recent history of surgery or travel or previous DVT/PE and his risk factors for a DVT are low but as he had concern for this a venous duplex was obtained. This revealed no signs of DVT. Patient is also at risk for cellulitis versus abscess versus herpes zoster. However there are no overlying soft tissue changes to suggest this. Patient denies any recent increased physical activity but there is possibility that his warm sensation is just due to overuse of the muscle belly. However this time as the main concern for DVT has been ruled out by venous duplex and there are no signs of infection and otherwise his physical exam is normal he is otherwise safe for discharge History & Record Review Discussion w/independent historian: Patient Radiography Diagnostic Testing: Clinical Impression(s) from Imaging Studies Venous Duplex 06/15/23 21:27 IMPRESSION: Normal right lower extremity duplex venous ultrasound. Electronically Signed: Lacho Elizabeth DO at 21:59 EST , Discharge Plan Triage Chief Complaint: Lower Extremity Injury ED Provider: Chacorta Frey Dx/Rx/DC Orders Clinical Impression: Leg pain, medial, Pancreatic adenocarcinoma Instructions: ED Myalgias, ED Muscle Strain, Extremity Prescriptions: No Action Digestive Enzymes(mal,lac,inv) 2 tab PO/SL TIDCM aspirin 81 mg Tablet,Chewable 81 mg PO BREAKFAST Qty: 30 0RF potassium chloride 20 mEq tablet extended release 20 meq PO TID Qty: 270 1RF Primary Care Provider: Anjelica Mendoza Referrals: Anjelica Mendoza MD [Primary Care Provider] - Activity Restrictions/Additional Instructions: Your ultrasound showed no sign of DVT/blood clot and on exam there is no sign of infection. Follow-up with your family doctor for repeat evaluation return to the ER should you have any further concerns Disposition Disposition: Home, Self Care Discharge Date/Time: 06/15/23 23:07
--- OUTSIDE RECORDS SUMMARY | 2023-06-15 23:09 | XMS RPT_ITS | CCD ---
Author Name Unknown Address [address] [place] [address] [place] [address] Organization [facility] Care Team Providers Care Binding Printer Name Role Phone SUREHS CARRERA Attending Unavailable SELF, SELF Referring Unavailable NURYS HUTCHINSON Primary Care Unavailable SHANNON VASQUEZ MD Attending Unavailable SHANNON VASQUEZ MD Primary Care Unavailable SHANNON VASQUEZ MD Admitting Unavailable Results Test Name Value Interpretation Reference Range Facil ity Encounters Encounter Date Encounter Type Care Provider Facility Start: 06-09-2020 Encounter for genera l adult medical examination without abnormal findings SHANNONPRISCA VASQUEZ [facility] Start: 06-09-2020 End: 06-12-2020 Patient encounter procedure SHANNON AGUERO [facility] Start: 08-15-2019 Patient encounter procedure SURESH CARRERA Facility:[facility] Encounter for genera l adult medical examination without abnormal findings SHANNON [facility] Payers Date Payer Category Payer Unknown [id number] 1950 Unknown [id number] 1950 Unknown [id number] Medicare [id number] Summary Purpose Family History No Family History Records FoundNo Family History Records FoundNo Family History Records FoundNo Family History Records Found Advance Directives No Advanced Directives Records FoundNo Advanced Directives Records FoundNo Advanced Directives Records FoundNo Advanced Directives Records Found Hospital Course Note HNO ID: [id number] Author: Toby solis (Lynne Walker DO Service: [...] DATE CREATED AUTHOR AUTHOR'S ORGANIZ ATION 09/19/2019 [facility] DATE CREATED AUTHOR AUTHOR'S ORGANIZ ATION 09/22/2019 [facility] DATE CREATED AUTHOR AUTHOR'S ORGANIZ ATION 06/21/2020 [facility] FOR RECORDS PERTAINING TO PATIENTS WHO [...] BE BASED ON THE PRIMARY CLINICAL RECORDS. [facility] provides no warranty or guarantee of the accuracy or completeness of information in this document.
== END 2023-06-15 23:07 | disposition home or self-care (01) ==
LOC: ED 23:04
PROVIDERS: Emergency Provider Emergency Medicine; PCP Internal Medicine; Visit Provider Emergency Medicine
DX: M79.651 Pain in right thigh (principal); Z79.82 Long term (current) use of aspirin; Z85.07 Personal history of malignant neoplasm of pancreas; Z86.73 Personal history of transient ischemic attack (TIA), and cerebral infarction without residual deficits
CPT/HCPCS: 93971; 99282

== ENCOUNTER → 2023-10-05 | Outpatient (CLI) | payer MEDICARE, SELFPAY ==
[2023-10-05 12:13] LABS: Absolute Lymphocyte Count 0.79 X10^3/uL (0.83-4.51); Absolute Neutrophil Count 1.8 X10^3/uL (2.0-7.7); Basophil# 0.03 X10^3/uL; Basophil% 0.9 % (0-1); Eosinophil# 0.34 X10^3/uL; Eosinophils% 10.1 % (0-5); Hematocrit 35.7 % (40-54); Hemoglobin 12.3 g/dL (13.0-16.5); Lymphocyte # 0.79 X10^3/ul (0.83-4.51); Lymphocyte % 23.4 % (19-41); Mean Corp Hgb Conc 34.5 g/dL (32-36); Mean Corpuscular Volume 98.6 fL (80-94); Mean Platelet Vol. 8.9 fl (6.2-12.0); Monocyte# 0.42 X10^3/uL; Monocyte% 12.4 % (0-10); NRBC Flagged by Analyzer 0 % (0-5); Neutrophil # 1.79 X10^3/uL (2.7-7.7); Neutrophil % 52.9 % (47-70); Platelet Count 241 K/mm3 (150-450); RBC Distribution Width CV 13.7 % (11.6-14.6); RBC Distribution Width SD 49.5 fl (35.1-43.9); Red Blood Count 3.62 M/mm3 (4.6-6.2); White Blood Count 3.4 K/mm3 (4.4-11.0)
[2023-10-05 13:13] LABS: Vitamin B12 282 pg/mL (211-911)
--- NOTE | 2023-10-05 14:00 | CT_ITS ---
STUDY: CT ABDOMEN AND PELVIS WITH CONTRAST REASON FOR EXAM: Male, 73 years old. Ab pain, nausea, status post Whipple pancreatic CA RADIATION DOSAGE (If Supplied By Facility): CTDIvol = ( 10.38 ) mGy, DLP = ( 419.43 ) mGycm TECHNIQUE: Transaxial images were obtained from the dome of the diaphragm to the symphysis pubis with oral contrast. Oral and amp; IV Gastrografin and amp; 100mL Isovue-300 was administered. Sagittal and coronal images were reconstructed. Individualized dose optimization techniques were used for this CT. COMPARISON: Comparison is made with prior study dated October 07, 2021. FINDINGS: The visualized lung bases are unremarkable. Coronary artery calcification. There is decreased attenuation of the liver consistent with steatosis. The patient is status post cholecystectomy. Normal spleen. The patient is status post Whipple procedure. Marked degree of atrophy of the pancreas with a dilated pancreatic duct. The head portion of the pancreas has been resected. Normal bilateral adrenal glands. Normal right kidney. Normal left kidney. Normal visualized stomach. Normal small intestine. Moderate amount of fecal material is seen throughout the colon. The appendix is visualized and appears normal. There is scattered atherosclerotic calcification of the abdominal aorta, without a demonstrated aneurysm. Normal inferior vena cava. Normal retroperitoneum. Mild degree of diffuse bladder wall thickening. There is enlargement of the prostate gland. The prostate measures 3.8 cm x 5 cm. This causes indentation of the bladder base. Normal abdominal wall. There are mild degenerative changes of the visualized lumbar spine. CT/Abdomen/Pelvis WITH Contrast IMPRESSION: Fatty infiltration of the liver. Status post Whipple procedure. Moderate amount of fecal material is seen throughout the colon. Electronically Signed: Keenan Littlejohn MD at 14:27 EDT ,
[2023-10-05 14:21] LABS: CREATININE FINGERSTICK 1.2 mg/dL (0.70-1.30); EGFR FINGERSTICK > 60.0000 mL/min (>60)
[2023-10-05 14:50] LABS: AST(SGOT) 38 U/L (15-37); Alanine Aminotransfer ALT/SGPT 43 U/L (16-61); Albumin, Serum 3.4 g/dL (3.2-5.0); Alkaline Phosphatase 93 U/L (45-117); Anion Gap 9 (5-15); BUN 15 mg/dL (7-18); BUN/Creat Ratio 15.4 RATIO (10-20); Calcium,Total 8.5 mg/dL (8.5-10.1); Chloride 114 mmol/L (98-107); Creatinine, Serum 0.97 mg/dL (0.70-1.30); EST Glomerular Filtration Rate 81 mL/min (>60); Est Glom Filt Rate - Afr Amer 98 mL/min (>60); Globulin 3.3 g/dL (2.2-4.2); Glucose 91 mg/dL (74-106); Lipase < 10 U/L (13-75); Magnesium 2.4 mg/dL (1.6-2.6); PSA,Total - Annual Screen 0.79 ng/mL (0.00-4.00); Potassium 2.9 mmol/L (3.5-5.1); Protein, Total 6.7 g/dL (6.4-8.2); Sodium Level 144 mmol/L (136-145)
[2023-10-08 16:09] LABS: Carbohydrate Ag 19-9 2261 20 U/mL (0-35)
== END | disposition home or self-care (01) ==
LOC: CT 11:43
PROVIDERS: PCP Internal Medicine; Referring Provider Internal Medicine; Visit Provider Internal Medicine
DX: Z01.812 Encounter for preprocedural laboratory examination (principal); C25.9 Malignant neoplasm of pancreas, unspecified; R10.9 Unspecified abdominal pain; R11.0 Nausea; E87.1 Hypo-osmolality and hyponatremia; R73.9 Hyperglycemia, unspecified; E55.9 Vitamin D deficiency, unspecified; Z12.5 Encounter for screening for malignant neoplasm of prostate; Z13.220 Encounter for screening for lipoid disorders; E53.8 Deficiency of other specified B group vitamins
CPT/HCPCS: 36415; 74177; 80053; 82306; 82607; 83690; 83735; 84153; 84443; 85025; 86301; Q9967; G0103

== ENCOUNTER → 2024-03-27 | Outpatient (CLI) | payer MEDICARE, SELFPAY ==
[2024-03-27 12:47] LABS: Absolute Lymphocyte Count 0.73 X10^3/uL (0.83-4.51); Absolute Neutrophil Count 2.4 X10^3/uL (2.0-7.7); Basophil# 0.05 X10^3/uL; Basophil% 1.3 % (0-1); Eosinophil# 0.41 X10^3/uL; Eosinophils% 10.5 % (0-5); Hematocrit 37.3 % (40-54); Hemoglobin 12.4 g/dL (13.0-16.5); Lymphocyte # 0.73 X10^3/ul (0.83-4.51); Lymphocyte % 18.6 % (19-41); Mean Corp Hgb Conc 33.2 g/dL (32-36); Mean Corpuscular Hgb 32.6 pg (27.0-32.0); Mean Corpuscular Volume 98.2 fL (80-94); Mean Platelet Vol. 9.1 fl (6.2-12.0); Monocyte# 0.36 X10^3/uL; Monocyte% 9.2 % (0-10); NRBC Flagged by Analyzer 0 % (0-5); Neutrophil # 2.36 X10^3/uL (2.7-7.7); Neutrophil % 60.1 % (47-70); Platelet Count 268 K/mm3 (150-450); RBC Distribution Width CV 15.1 % (11.6-14.6); RBC Distribution Width SD 54.4 fl (35.1-43.9); White Blood Count 3.9 K/mm3 (4.4-11.0)
[2024-03-27 13:33] LABS: ALB/GLOB Ratio 1.1 RATIO (0.9-2.4); AST(SGOT) 23 U/L (15-37); Alanine Aminotransfer ALT/SGPT 37 U/L (16-61); Albumin, Serum 3.5 g/dL (3.2-5.0); Alkaline Phosphatase 91 U/L (45-117); Anion Gap 4 (5-15); BUN 15 mg/dL (7-18); Calcium,Total 8.4 mg/dL (8.5-10.1); Chloride 119 mmol/L (98-107); Creatinine, Serum 1.07 mg/dL (0.70-1.30); EST Glomerular Filtration Rate 72 mL/min (>60); Est Glom Filt Rate - Afr Amer 87 mL/min (>60); Globulin 3.2 g/dL (2.2-4.2); Glucose 140 mg/dL (74-106); Magnesium 2.4 mg/dL (1.6-2.6); Potassium 2.9 mmol/L (3.5-5.1); Protein, Total 6.7 g/dL (6.4-8.2); Sodium Level 144 mmol/L (136-145)
== END | disposition home or self-care (01) ==
LOC: LAB 11:05
PROVIDERS: PCP Internal Medicine; Referring Provider Internal Medicine; Visit Provider Internal Medicine
DX: R11.0 Nausea (principal); R63.0 Anorexia
CPT/HCPCS: 36415; 80053; 83735; 84443; 85025

== ENCOUNTER → 2024-04-01 | Outpatient (CLI) | payer MEDICARE, SELFPAY ==
[2024-04-11 15:07] LABS: Aldosterone, Serum 1.3 ng/dL (0.0-30.0)
== END | disposition home or self-care (01) ==
LOC: LAB 09:07
PROVIDERS: PCP Internal Medicine; Referring Provider Internal Medicine; Visit Provider Internal Medicine
DX: R11.0 Nausea (principal); E87.6 Hypokalemia
CPT/HCPCS: 36415; 82024; 82088; 82533; 84244

== ENCOUNTER → 2024-07-10 | Outpatient (CLI) | payer MEDICARE, SELFPAY ==
--- NOTE | 2024-07-10 12:54 | RAD_ITS ---
PROCEDURE: CHEST PA AND LATERAL (RADCXR), 07/10/2024 REASON FOR EXAM: COUGH TECHNIQUE: PA and lateral views of the chest were obtained. COMPARISON: 04/26/2022 FINDINGS: Heart: Unremarkable. Mediastinum: Unremarkable. Lungs/pleura: Similar elevation of the RIGHT hemidiaphragm. No convincing focal consolidation. No pleural effusion or visible pneumothorax. Bones: Suspect demineralization. Multilevel spondylosis.. Other: None. RAD/Chest PA and Lateral IMPRESSION: 1. No visible acute cardiopulmonary findings 2. Additional description as above. Reading Location: [id number]
== END | disposition home or self-care (01) ==
LOC: MTRAD 12:54
PROVIDERS: PCP Internal Medicine; Referring Provider Physician Assistant Surgical; Visit Provider Physician Assistant Surgical
DX: R05.9 Cough, unspecified (principal)
CPT/HCPCS: 71046

== ENCOUNTER → 2024-10-29 | Outpatient (CLI) | payer MEDICARE, SELFPAY ==
--- NOTE | 2024-10-29 12:32 | RAD_ITS ---
PROCEDURE: THORACIC SPINE 3 VIEWS 10/29/2024 REASON FOR EXAM: THORACIC BACK PAIN TECHNIQUE: THORACIC SPINE 3 VIEWS COMPARISON: None FINDINGS: The vertebral alignment is maintained with no spondylolisthesis visualized. No evidence of vertebral body fracture. Intervertebral disc spaces are reduced and facet joint arthropathy. No scoliosis seen. Degenerative osteophytes seen. Normal paravertebral soft tissue densities noted. RAD/Thoracic Spine 3 Views IMPRESSION: Thoracic spondylosis. No acute fracture. Reading Location[facility]
[2024-10-29 12:56] LABS: Hematocrit 33.2 % (40-54); Hemoglobin 10.9 g/dL (13.0-16.5); Immature Granulocytes Count 0.010 X10^3/uL (0.0-0.0); Mean Corp Hgb Conc 32.8 g/dL (32-36); Mean Corpuscular Volume 99.1 fL (80-94); Mean Platelet Vol. 8.7 fl (6.2-12.0); NRBC Flagged by Analyzer 0 % (0-5); Platelet Count 424 K/mm3 (150-450); RBC Distribution Width CV 13.5 % (11.6-14.6); RBC Distribution Width SD 49.5 fl (35.1-43.9); Red Blood Count 3.35 M/mm3 (4.6-6.2); White Blood Count 5.2 K/mm3 (4.4-11.0)
[2024-10-29 14:20] LABS: AST(SGOT) 28 U/L (<=37); Alanine Aminotransfer ALT/SGPT 29 U/L (<=46); Albumin, Serum 2.9 g/dL (3.4-4.8); Alkaline Phosphatase 98 U/L (40-129); Anion Gap 8 (5-15); BUN 12 mg/dL (4-19); BUN/Creat Ratio 11.7 RATIO (10-20); Calcium,Total 8.3 mg/dL (7.6-11.0); Carbon Dioxide 22.6 mmol/L (21.0-32.0); Chloride 108 mmol/L (98-108); Globulin 3.1 g/dL (2.2-4.2); Glucose 122 mg/dL (70-99); Lipase 6 U/L (13-75); Magnesium 1.9 mg/dL (1.5-2.2); Potassium 4.4 mmol/L (3.3-5.1)
== END | disposition home or self-care (01) ==
LOC: LAB 12:20
PROVIDERS: PCP Internal Medicine; Referring Provider Internal Medicine; Visit Provider Internal Medicine
DX: E87.6 Hypokalemia (principal); M54.6 Pain in thoracic spine
CPT/HCPCS: 36415; 72072; 80053; 83690; 83735; 85025

== ENCOUNTER → 2024-12-04 | Outpatient (CLI) | payer MEDICARE, SELFPAY ==
--- NOTE | 2024-12-04 13:21 | MRI_ITS ---
PROCEDURE: SPINE CERVICAL (ROUTINE) 12/04/2024 REASON FOR EXAM: CERVICAL NECK PAIN, HISTORY OF PANCREATIC CA TECHNIQUE: SPINE CERVICAL (ROUTINE) Multiplanar and multisequence images were obtained without IV contrast administration. COMPARISON: None. FINDINGS: Vertebrae: Cervical vertebral body heights are preserved. Bone marrow signal is unremarkable. Alignment: Normal. No spondylolisthesis. Spinal Cord: Cervical spinal cord is of normal size and signal intensities. Structures at the foramen magnum are unremarkable. C2-3: Unremarkable C3-4: Unremarkable C4-5: Unremarkable C5-6: Disc desiccation. Left paracentral disc osteophyte complex measures 3 mm. Severe left foramina stenosis. No canal stenosis. C6-7: Uncovertebral hypertrophy. Mild bilateral foramina stenosis. No canal stenosis. C7-T1: Unremarkable MRI/Spine Cervical (Routine) IMPRESSION: C5-6, disc desiccation. Left paracentral disc osteophyte complex measures 3 mm . Severe left foramina stenosis. No canal stenosis. Reading Location: [id number]
--- NOTE | 2024-12-04 13:21 | MRI_ITS ---
PROCEDURE: SPINE THORACIC (ROUTINE) 12/04/2024 REASON FOR EXAM: THORACIC BACK PAIN, HISTORY OF PANCREATIC CA TECHNIQUE: SPINE THORACIC (ROUTINE) Multiplanar and multisequence images were obtained. CONTRAST: None COMPARISON: October 29, 2024 x-ray FINDINGS: Vertebrae: Vertebral body height is preserved. No fracture seen. No bone marrow edema identified. No significant exit foraminal narrowing seen. Alignment: Normal thoracic kyphosis. Spinal Cord: No abnormal signal within the spinal cord. No central stenosis. Thoracic aorta is normal caliber. Branching pattern is conventional of the aortic arch. No mass is identified. MRI/Spine Thoracic (Routine) IMPRESSION: No acute abnormality Reading Location: [id number]
== END | disposition home or self-care (01) ==
LOC: MRI 13:19
PROVIDERS: PCP Internal Medicine; Referring Provider Internal Medicine; Visit Provider Internal Medicine
DX: M54.2 Cervicalgia (principal); C25.9 Malignant neoplasm of pancreas, unspecified; M54.6 Pain in thoracic spine
CPT/HCPCS: 72141; 72146

== ENCOUNTER → 2024-12-05 | Outpatient (CLI) | payer MEDICARE, SELFPAY ==
[2024-12-05 15:24] LABS: CRP 8.64 mg/L (0.0-3.0)
--- OUTSIDE RECORDS SUMMARY | 2024-12-05 19:50 | XMS RPT_ITS | CCD ---
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 Anjelica Mendoza Primary Care Provider Dr. Anjelica Mendoza Attending Provider [phone] Dr. Anjelica Mendoza Referring Provider [phone] Dr. Anjelica Mendoza Primary Care Provider Dr. Armando Chan Emergency Provider Dr. Suresh Crum Admit Provider Dr. Suresh Crum Attending Provider Dr. Suresh Crum Other Provider Dr. Russ Kim Attending Provider Dr. Cosmo Hernandez Attending Provider Dr. Cosmo Hernandez Other Provider Dr. Anjelica Mendoza Attending Provider [phone] Dr. Anjelica Mendoza Primary Care Provider Dr. Armando Chan Emergency Provider Dr. Suresh Crum Admit Provider Dr. Suresh Crum Attending Provider Dr. Suresh Crum Other Provider Dr. Russ Kim Attending Provider Dr. Cosmo Hernandez Attending Provider Dr. Cosmo Hernandez Other Provider Dr. Anjelica Mendoza Attending Provider Reji AGUERO, Dr. Dejesus Primary Care Provider Reji AGUERO, Dr. Dejesus Attending Provider Reji AGUERO, Dr. Dejesus Referring Provider Bhavin PA, Arsen Attending Provider Bhavin SINGER, Arsen Referring Provider Reji AGUERO, Dr. Dejesus Primary Care Provider Reji AGUERO, Dr. Dejesus Referring Provider Reji AGUERO, Dr. Dejesus Attending Provider Reji, Anjelica Primary Care Unavailable Reji, Anjelica Attending Unavailable Reji, Anjelica Referring Unavailable Reji, Anjelica Primary Care Unavailable RejiAnjelica Attending Unavailable Reji, Anjelica Referring Unavailable Bhavin PA, Arsen Attending Unavailable Bhavin PA, Arsen Referring Unavailable Reji, Anjelica Primary Care Unavailable Bhavin PA, Arsen Attending Unavailable Reji, Anjelica Referring Unavailable Reji, Anjelica Primary Care Unavailable Reji, Anjelica Attending Unavailable Reji, Anjelica Primary Care Unavailable Reji, Anjelica Primary Care Unavailable Reji, Anjelica Attending Unavailable Reji, Anjelica Attending Unavailable Reji, Anjelica Primary Care Unavailable Reji, Anjelica Attending Unavailable Reji, Anjelica Referring Unavailable Reji, Anjelica Primary Care Unavailable Medications Current Medications Medication Drug Class(es) Dates Sig (Normalized) Sig (Original) aspirin 81 mg chewable tablet (20 sources) Platelet Aggregation Inhibitor, Nonsteroidal Anti-inflammatory Drug Start: 04-27-2022 take 1 tablet by mouth at breakfast Aspirin 81 mg Tablet,Chewable Active 81 mg PO WITH BREAKFAST 30 0 April 27, 2022 1:00am Start: 05-27-2020 End: 04-07-2021 take 1 tablet by mouth once daily Aspirin 81 MG tablet,chewable Discontinued 81 mg PO DAILY@0800 May 27, 2020 1:00am April 07, 2021 4:08pm blood thinner benzocaine 15 mg / menthol 2.6 mg oral lozenge (3 sources) Standardized Chemical Allergen Start: 04-28-2021 Benzocaine-Menthol A ctive 1 LOZENGE MUCOUS MEM Q2H 16 April 28, 2021 1:00am Digestive Enzymes(mal,lac,inv ) (10 sources) Start: 04-26-2022 Digestive Enzymes(mal,lac,inv) Active 2 {tbl} SL/PO 3 TIMES DAILY WITH MEALS April 26, 2022 1:00am DIGESTION Start: 04-26-2022 Digestive Enzy mes(mal,lac,inv) Active 2 {tbl} SL/PO 3 TIMES DAILY WITH MEALS April 26, 2022 1:00am Start: 04-26-2022 take 2 tablets by mo ut three times daily at mealtime Digestive Enzymes(mal,lac,inv) Active 2 TABLET SL/PO 3 TIMES DAILY WITH MEALS April 26, 2022 1:00am Start: 04-26-2022 take 2 tablets by mo uth three times daily at mealtime Digestive Enzymes(mal,lac,inv) Active 2 TABLET SL/PO 3 TIMES DAILY WITH MEALS April 26, 2022 12:00am guaiFENesin 400 mg oral tablet (3 sources) Start: 04-28-2021 take 400 mg by mouth three times daily Guaifenesin Active 400 MG PO THREE TIMES A DAY April 28, 2021 1:00am rowdy-zyme (3 sources) Start: 04-07-2021 rowdy-zyme Acti ve PO April 07, 2021 4:09pm amylase 81,250 ,protease 81,250 , lipase 6,500 Start: 04-07-2021 rowdy-zyme Acti ve PO April 07, 2021 1:00am amylase 81,250 ,protease 81,250 , lipase 6,500 pancreas glanular lai (3 sources) Start: 04-07-2021 pancreas glanu lar lai Active PO April 07, 2021 4:08pm 1 before each meal Start: 04-07-2021 pancreas glanu lar lai Active PO April 07, 2021 1:00am 1 before each meal potassium chloride 1.33 meq/ml oral solution (20 sources) Start: 07-09-2025 take 1 tablet by mouth three times daily Potassium Chloride 20 mEq/15 mL liquid Active 20 meq PO THREE TIMES A DAY 1500 3 October 29, 2024 12:00am Pt. intolerant/unable to take tablet form of potassium. Fill as directed. Start: 06-29-2022 End: 10-23-2024 take 1 tablet by mouth three times daily Potassium Chloride 20 mEq tablet extended release Discontinued 20 meq PO THREE TIMES A DAY 270 1 October 04, 2023 3:14pm October 23, 2024 2:37pm Start: 04-27-2022 End: 06-29-2022 take 1 tablet by mouth once daily Potassium Chloride 20 mEq tablet extended release Discontinued 20 meq PO DAILY 30 April 27, 2022 1:00am June 29, 2022 12:56pm Start: 09-26-2021 take 20 mEq by mouth twice daily Potassium Chloride Active 20 MEQ PO TWICE A DAY 60 September 26, 2021 12:00am Completed/Discontinued Medications Medication Drug Class(es) Dates Sig (Normalized) Sig (Original) amylase 08397 unt / lipase 3000 unt / protease 9500 unt delayed release oral capsule (20 sources) Start: 06-01-2020 End: 04-07-2021 Rawlbx-Nyxkvcuh-Ivvo ase 3,000-9,500- 15,000 unit capsule,delayed release(DR/EC) Discontinued 1 NMA PO 3 TIMES DAILY WITH MEALS 90 February 16, 2021 2:40pm April 07, 2021 4:08pm Start: 06-01-2020 End: 04-07-2021 take 1 capsule by mouth three times daily at mealtime Mophab-Fswrscxg-Cfizqxp Discontinued 1 CAP PO 3 TIMES DAILY WITH MEALS February 16, 2021 1:40pm April 07, 2021 3:08pm atorvastatin 40 mg oral tablet (9 sources) HMG-CoA Reductase Inhibitor Start: 04-27-2022 End: 05-08-2022 take 1 tablet by mouth at bedtime Atorvastatin (Lipitor) 40 mg tablet Discontinued 40 mg PO AT BEDTIME 30 April 27, 2022 1:00am May 08, 2022 2:43pm benzonatate 100 mg oral capsule (6 sources) Non-narcotic Antitussive Start: 07-10-2024 End: 07-21-2024 take 2 capsules by mouth three times daily as needed for cough Benzonatate 100 mg capsule Discontinued 200 mg PO THREE TIMES A DAY as needed for cough 30 0 July 10, 2024 12:00am July 21, 2024 10:05am Start: 04-28-2021 take 200 mg by mouth three times daily Benzonatate Active 200 MG PO THREE TIMES A DAY April 28, 2021 1:00am erythromycin 250 mg oral tablet (13 sources) Macrolide, Macrolide Antimicrobial Start: 06-01-2020 End: 06-07-2020 take 1 tablet by mouth three times daily at mealtime Erythromycin 250 MG tablet Discontinued 250 mg PO 3 TIMES DAILY WITH MEALS 90 0 June 01, 2020 1:00am June 07, 2020 2:54pm Food Supplemt, Lactose-Reduced (10 sources) Start: 06-01-2020 End: 01-03-2021 take 1 mL by mouth four times daily Food Supplemt, Lactose-Reduced Discontinued 120 ML PO 4 TIMES DAILY June 01, 2020 9:41am January 03, 2021 1:20pm Start: 06-01-2020 End: 01-03-2021 take 1 mL by mouth four times daily Food Supplemt, Lactose-Reduced Discontinued 120 ML PO 4 TIMES DAILY June 01, 2020 12:00am January 03, 2021 12:20pm Start: 06-01-2020 End: 01-03-2021 take 1 mL by mouth four times daily Food Supplemt, Lactose-Reduced Discontinued 120 ML PO 4 TIMES DAILY June 01, 2020 1:00am January 03, 2021 1:20pm Food Supplemt, Lactose-Reduced 120 ML liquid (3 sources) Start: 06-01-2020 End: 01-03-2021 take 1 mL by mouth four times daily Food Supplemt, Lactose-Reduced 120 ML liquid Discontinued 120 mL PO 4 TIMES DAILY 0 June 01, 2020 1:00am January 03, 2021 1:20pm Start: 06-01-2020 End: 01-03-2021 take 1 mL by mouth four times daily Food Supplemt, Lactose-Reduced 120 ML liquid Discontinued 120 mL PO 4 TIMES DAILY June 01, 2020 1:00am January 03, 2021 1:20pm lisinopril 10 mg oral tablet (13 sources) Angiotensin Converting Enzyme Inhibitor Start: 06-01-2020 End: 06-07-2020 take 1 tablet by mouth once daily Lisinopril 10 MG tablet Discontinued 10 mg PO DAILY 30 June 01, 2020 1:00am June 07, 2020 2:54pm loperamide hydrochloride 2 mg oral tablet (16 sources) Opioid Agonist Start: 04-07-2021 End: 09-26-2021 take 1 tablet by mouth once daily as needed, then take 2 tablets by mouth once daily as needed Loperamide (Imodium A-D) 2 mg tablet Discontinued 0 PO DAILY as needed for loose stool 22 05April 07, 2021 1:00am September 26, 2021 2:56pm Take one or two tabs daily as needed. ondansetron 4 mg disintegrating oral tablet (13 sources) Serotonin-3 Receptor Antagonist Start: 06-01-2020 End: 09-09-2020 take 1 tablet by mouth every eight hours at mealtime as needed for nausea Ondansetron 4 MG tablet Discontinued 4 mg PO EVERY 8 HOURS NEEDED as needed for nausea, emesis June 01, 2020 1:00am September 09, 2020 4:22pm May take prior to meals to assist with oral intake to avoid nausea. pantoprazole 20 mg delayed release oral tablet (20 sources) Proton Pump Inhibitor Start: 08-31-2020 End: 09-09-2020 take 1 tablet by mouth once daily Pantoprazole 20 mg tablet,delayed release (DR/EC) Discontinued 20 mg PO DAILY 30 August 31, 2020 12:00am September 09, 2020 4:22pm Start: 06-01-2020 End: 08-31-2020 take 1 tablet by mouth once daily Pantoprazole 40 MG tablet Discontinued 40 mg PO DAILY 30 June 01, 2020 1:00am August 31, 2020 4:27pm sertraline 50 mg oral tablet (13 sources) Serotonin Reuptake Inhibitor Start: 06-01-2020 End: 09-09-2020 take 1 tablet by mouth once daily Sertraline 50 MG tablet Discontinued 50 mg PO DAILY 30 June 01, 2020 1:00am September 09, 2020 4:23pm Problems Active Problems Problem Classification Problem Date Documented Da te Episodic/Chronic Abdominal pain (13 sources) Abdominal pain; Translations: [Unspecified abdominal pain] 05-27-2020 Episodic Administrative/social admission (20 sources) Patient encounter status; Translations: [Counseling, unspecified] 05-27-2020 Episodic Biliary tract disease (13 sources) Obstruction of biliary tree; 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 Blindness and vision defects (13 sources) Eye / vision finding; Translations: [Unspecified visual disturbance] 05-27-2020 Episodic Cancer of pancreas (20 sources) Adenocarcinoma of pancreas; Translations: [Malignant neoplasm of pancreas, unspecified] Chronic Complications of surgical procedures or medical care (19 sources) Post-gastrointestina l tract surgery malnutrition; Translations: [Postsurgical malabsorption, not elsewhere classified] Chronic Diabetes mellitus without complication (17 sources) Hyperglycemia; Translations: [Hyperglycemia, unspecified] Episodic Diseases of mouth; excluding dental (4 sources) Xerostomia; Translations: [Dry mouth, unspecified] 07-21-2024 Episodic Fluid and electrolyte disorders (20 sources) Hyponatremia; Translations: [Hypo-osmolality and hyponatremia] Onset: 11-04-2024 Episodic Malaise and fatigue (2 sources) Tires quickly; Translations: [Other fatigue] 10-29-2024 Episodic Nutritional deficiencies (13 sources) Malignant cachexia; 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] 06-08-2020 Episodic Other circulatory disease (13 sources) Elevated blood-pressure reading without diagnosis of hypertension; Translations: [Elevated blood-pressure reading, without diagnosis of hypertension] 05-27-2020 Episodic Other connective tissue disease (5 sources) Neurological symptom; Translations: [Unspecified symptoms and signs involving the nervous system] Episodic Other connective tissue disease (4 sources) Pain in lower limb; Translations: [Pain in leg, unspecified] 06-15-2023 Episodic Other gastrointestinal disorders (14 sources) Loose stool; Translations: [Other fecal abnormalities] 04-07-2021 Episodic Other gastrointestinal disorders (13 sources) Constipation; Translations: [Constipation, unspecified] 05-27-2020 Episodic Other gastrointestinal disorders (3 sources) Other fecal abnormalities; Translations: [Abnormal feces] Episodic Other hematologic conditions (13 sources) MCV - raised; Translations: [Other abnormality of red blood cells] 09-26-2021 Episodic Other liver diseases (13 sources) Lesion of liver; Translations: [Liver disease, unspecified] 05-27-2020 Chronic Other lower respiratory disease (13 sources) Nodule of lung; Translations: [Solitary pulmonary nodule] 05-27-2020 Episodic Other nutritional; endocrine; and metabolic disorders (13 sources) Loss of appetite; Translations: [Anorexia] 06-08-2020 Episodic Other nutritional; endocrine; and metabolic disorders (13 sources) Abnormal weight loss; Translations: [Abnormal weight loss] 06-07-2020 Episodic Spondylosis; intervertebral disc disorders; other back problems (17 sources) Chronic back pain ; Translations: [Dorsalgia, unspecified] Onset: 10-29-2024 06-07-2020 Episodic Transient cerebral ischemia (20 sources) Transient cerebral ischemia; 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, unspecified] Chronic Unclassified (13 sources) Age more than 65 years; Translations: [Over 65 years old] 05-03-2021 Unclassified (11 sources) whipple surgery 11-12-2021 Unclassified (1 source) Cough, unspecified; Translations: [Cough, unspecified] Onset: 07-18-2024 Viral infection (13 sources) Disease caused by 2019-nCoV; Translations: [COVID-19] 05-03-2021 Episodic Past or Other Problems Problem Classification Problem Date Documented Da te Episodic/Chronic Influenza (7 sources) Influenza due to Influenza A virus; Translations: [Influenza due to other identified influenza virus with other respiratory manifestations] Onset: 07-11-2024 07-10-2024 Episodic Nausea and vomiting (18 sources) Nausea and vomiting; Translations: [Nausea with vomiting, unspecified] Onset: 04-30-2024 06-07-2020 Episodic Other nutritional; endocrine; and metabolic disorders (1 source) Anorexia; Translations: [Anorexia] Onset: 03-27-2024 Episodic Unclassified (10 sources) PIN IN LEFT ARM 11-12-2021 Comment on above: 2003 Unclassified (10 sources) [place] 11-12-2021 Comment on above: October 2019 removed Results Test Name Value Interpretation Reference Range Facility Absolute lymphocyte countOrd ered By: Anjelica Mendoza on 10-29-2024 Lymphocytes Auto (Unsp spec) [#/Vol] 0.63 10*3/uL Low 0.83-4.51 [facility] Absolute neutrophil countOrd ered By: Anjelica Mendoza on 10-29-2024 Neutrophils (Bld) [#/Vol] 3.8 10*3/uL 2.0-7.7 [facility] Anion gap in Serum or Plasma Ordered By: Anjelica Mendoza on 10-29-2024 Anion gap [Moles/Vol] 8 mmol/L 5-15 [facility] Automated lymphocyte count a s percentage of total leukocytesOrdered By: Anjelica Mendoza on 10-29-2024 Lymphocytes/100 WBC Auto (Unsp spec) 12.1 % Low 19- [facility] BUN/creatinine ratioOrdered By: Anjelica Mendoza on 10-29-2024 Urea nitrogen/Creatinine [Mass ratio] 11.7 mg/mg 10- [facility] Basophil percentageOrdered B y: Anjelica Mendoza on 10-29-2024 Basophils/100 WBC (Bld) 0.8 % 0-1 [facility] Bilirubin, totalOrdered By: Anjelica Mendoza on 10-29-2024 Bilirubin [Mass/Vol] 0.26 mg/dL 0.00-1.30 [facility] CBC W/Diff, Automatedon 07-0 Absolute Lymph 0.63 X10 3/uL Low 0.83-4.51 [facility] Comment on above: Performed By: #### L [id number], [id number], [id number], L100.0100 #### [facility] [address] [place], [address] Absolute Neut 3.8 X10 3/uL Normal 2.0-7.7 [facility] Comment on above: Performed By: #### L [id number], [id number], [id number], L100.0100 #### [facility] [address] [place], [address] Basophils/100 WBC (Bld) 0.8 % Normal 0-1 [facility] Comment on above: Performed By: #### L [id number], [id number], [id number], L100.0100 #### [facility] [address] [place], [address] Eosinophils/100 WBC (Bld) 5.4 % High 0-5 [facility] Comment on above: Performed By: #### L [id number], [id number], [id number], [id number] #### [facility] [address] [place], [address] Erythrocyte distribution width (RBC) [Ratio] 13.5 % Normal 11.6-14.6 [facility] Comment on above: Performed By: #### L [id number], [id number], [id number], L100.0100 #### [facility] [address] [place], [address] Hematocrit (Bld) [Volume fraction] 33.2 % Low 40-54 [facility] Comment on above: Performed By: #### L [id number], [id number], [id number], L100.0100 #### [facility] [address] [place], [address] Hemoglobin (Bld) [Mass/Vol] 10.9 g/dL Low 13.0-16.5 [facility] Comment on above: Performed By: #### L [id number], [id number], [id number], L100.0100 #### [facility] [address] [place], [address] IG% 0.200 Normal 0.0-0.9 [facility] Comment on above: Result Comment: IG% - Immature Granulocytes (promyelocytes, myelocytes and metamyelocytes) > 1% indicates that a LEFT SHIFT is Present. Performed By: #### L [id number], [id number], [id number], L100.0100 #### [facility] [address] [place], [address] Lymphocytes/100 WBC (Bld) 12.1 % Low 19-41 [facility] Comment on above: Performed By: #### L 501.5200, [id number], [id number], [id number] #### [facility] [address] [place], [address] MCH (RBC) [Entitic mass] 32.5 pg High 27.0-32.0 [facility] Comment on above: Performed By: #### L [id number], [id number], [id number], L100.0100 #### [facility] [address] [place], [address] MCHC (RBC) [Mass/Vol] 32.8 g/dL Normal 32-36 [facility] Comment on above: Performed By: #### L 501.5200, [id number], [id number], L100.0100 #### [facility] [address] [place], [address] MCV (RBC) [Entitic vol] 99.1 fL High 80-94 [facility] Comment on above: Performed By: #### L 501.5200, [id number], [id number], [id number] #### [facility] [address] [place], [address] Monocytes/100 WBC (Bld) 7.7 % Normal 0-10 [facility] Comment on above: Performed By: #### L 501.5200, [id number], [id number], L100.0100 #### [facility] [address] [place], [address] Neutrophils/100 WBC (Bld) 73.8 % High 47-70 [facility] Comment on above: Performed By: #### L 501.5200, [id number], [id number], L100.0100 #### [facility] [address] [place], [address] Nucleated RBC (Bld) [#/Vol] 0 10*3/uL Normal 0-5 [facility] Comment on above: Performed By: #### L 501.5200, [id number], [id number], L100.0100 #### [facility] [address] [place], [address] Platelet mean volume (Bld) [Entitic vol] 8.7 fL Normal 6.2-12.0 [facility] Comment on above: Performed By: #### L 501.5200, [id number], [id number], L100.0100 #### [facility] [address] [place], [address] Platelets (Bld) [#/Vol] 424 10*3/uL Normal 150-450 [facility] Comment on above: Performed By: #### L 501.5200, [id number], [id number], L100.0100 #### [facility] [address] [place], [address] RBC (Bld) [#/Vol] 3.35 10*6/uL Low 4.6-6.2 [facility] Comment on above: Performed By: #### L 501.5200, [id number], [id number], L100.0100 #### [facility] [address] [place], [address] RDW SD 49.5 fl High 35.1-43.9 [facility] Comment on above: Performed By: #### L 501.5200, [id number], [id number], L100.0100 #### [facility] [address] [place], [address] WBC (Bld) [#/Vol] 5.2 10*3/uL Normal 4.4-11.0 [facility] Comment on above: Performed By: #### L 501.5200, [id number], [id number], L100.0100 #### [facility] [address] [place], [address] Carbon dioxide, total [Moles /volume] in Central venous bloodOrdered By: Anjelica Mendoza on 10-29-2024 CO2 [Moles/Vol] 22.6 mmol/L 21.0-32.0 [facility] Chloride assayOrdered By: Margarita Mendoza on 10-29-2024 Chloride [Moles/Vol] 108 mmol/L 98-108 [facility] Comprehensive Metabolic Prof ilon 10-29-2024 Albumin [Mass/Vol] 2.9 g/dL Low 3.4-4.8 [facility] Comment on above: Performed By: #### L 501.5200, [id number], [id number], L100.0100 #### [facility] [address] [place], [address] Albumin/Globulin [Mass ratio] 0.9 {ratio} Normal 0.9-2.4 [facility] Comment on above: Performed By: #### L 501.5200, [id number], [id number], L100.0100 #### [facility] [address] [place], [address] ALK PHOS 98 U/L Normal 40-129 [facility] Comment on above: Performed By: #### L 501.5200, [id number], [id number], L100.0100 #### [facility] [address] [place], [address] ALT [Catalytic activity/Vol] 29 U/L Normal <=46 [facility] Comment on above: Performed By: #### L 501.5200, [id number], [id number], L100.0100 #### [facility] [address] [place], [address] AST [Catalytic activity/Vol] 28 U/L Normal <=37 [facility] Comment on above: Performed By: #### L 501.5200, [id number], [id number], L100.0100 #### [facility] [address] [place], [address] Bilirubin [Mass/Vol] 0.26 mg/dL Normal 0.00-1.30 [facility] Comment on above: Performed By: #### L 501.5200, [id number], [id number], L100.0100 #### [facility] [address] [place], [address] BUN/CRE 11.7 RATIO Normal 10-20 [facility] Comment on above: Performed By: #### L 501.5200, [id number], [id number], L100.0100 #### [facility] [address] [place], [address] Calcium [Mass/Vol] 8.3 mg/dL Normal 7.6-11.0 [facility] Comment on above: Performed By: #### L 501.5200, [id number], [id number], L100.0100 #### [facility] [address] [place], [address] Chloride [Moles/Vol] 108 mmol/L Normal 98-108 [facility] Comment on above: Performed By: #### L 501.5200, [id number], [id number], L100.0100 #### [facility] [address] [place], [address] CO2 [Moles/Vol] 22.6 mmol/L Normal 21.0-32.0 [facility] Comment on above: Performed By: #### L 501.5200, [id number], [id number], L100.0100 #### [facility] [address] [place], [address] Creatinine [Mass/Vol] 0.99 mg/dL Normal 0.70-1.20 [facility] Comment on above: Performed By: #### L 501.5200, [id number], [id number], L100.0100 #### [facility] [address] [place], [address] GAP 8 Normal 5-15 [facility] Comment on above: Performed By: #### L 501.5200, [id number], [id number], L100.0100 #### [facility] [address] [place], [address] GFR/1.73 sq M.predicted among non-blacks MDRD (S/P/Bld) [Vol rate/Area] 81 mL/min/{1.73_m2} Normal >60 [facility] Comment on above: Result Comment: mL/m in/1.73m2 CKD-EPI Creatinine Equation (2020) Performed By: #### L [id number], [id number], [id number], L100.0100 #### [facility] [address] [place], [address] Globulin (S) [Mass/Vol] 3.1 g/dL Normal 2.2-4.2 [facility] Comment on above: Performed By: #### L 501.5200, [id number], [id number], L100.0100 #### [facility] [address] [place], [address] Glucose [Mass/Vol] 122 mg/dL High 70-99 [facility] Comment on above: Performed By: #### L 501.5200, [id number], [id number], [id number] #### [facility] [address] [place], [address] Potassium [Moles/Vol] 4.4 mmol/L Normal 3.3-5.1 [facility] Comment on above: Performed By: #### L [id number], [id number], [id number], L100.0100 #### [facility] [address] [place], [address] Sodium [Moles/Vol] 138 mmol/L Normal 133-145 [facility] Comment on above: Performed By: #### L 501.5200, L501.2450, L500.4050, L100.0100 #### [facility] [address] [place], [address] T PROT 6.0 g/dL Normal 5.9-8.4 [facility] Comment on above: Performed By: #### L 501.5200, L501.2450, L500.4050, L100.0100 #### [facility] [address] [place], [address] Urea nitrogen [Mass/Vol] 12 mg/dL Normal 4-19 [facility] Comment on above: Performed By: #### L 501.5200, L501.2450, L500.4050, L100.0100 #### [facility] [address] [place], [address] Eosinophil percentageOrdered By: Anjelica Mendoza on 10-29-2024 Eosinophils/100 WBC (Bld) 5.4 % High 0-5 [facility] Erythrocyte distribution wid th ratioOrdered By: Anjelica Mendoza on 10-29-2024 Erythrocyte distribution width (RBC) [Ratio] 13.5 % 11.6-14.6 [facility] Erythrocyte distribution wid th standard deviationOrdered By: Anjelica Mendoza on 10-29-2024 Erythrocyte distribution width (RBC) [Ratio] 49.5 fl High 35.1-43.9 [facility] Glomerular filtration rate ( GFR) estimation/1.73 sq m using serum, plasma, or whole bOrdered By: Anjelica Mendoza on 07-09-2025 GFR/1.73 sq M.predicted among non-blacks MDRD (S/P/Bld) [Vol rate/Area] 81 mL/min/{1.73_m2} >60 [facility] Comment on above: mL/min/1.73m2 CKD-EP I Creatinine Equation (2020) Hematocrit Auto (Bld) [Volum e fraction]Ordered By: Anjelica Mendoza on 10-29-2024 Hematocrit (Bld) [Volume fraction] 33.2 % Low 40-54 [facility] Hemoglobin measurementOrdere d By: Anjelica Mendoza on 10-29-2024 Hemoglobin (Bld) [Mass/Vol] 10.9 g/dL Low 13.0-16.5 [facility] Immature granulocytes/100 WB C Auto (Bld)Ordered By: Anjelicaigor Mendoza on 10-29-2024 Immature granulocytes/100 WBC (Bld) 0.200 % 0.0-0.9 [facility] Comment on above: IG% - Immature Granu locytes (promyelocytes, myelocytes and metamyelocytes) > 1% indicates that a LEFT SHIFT is Present. Laboratory - Chemistry and C hemistry - challengeOrdered By: Anjelica Mendoza on 10-29-2024 AST [Catalytic activity/Vol] 28 U/L <38 [facility] Lipaseon 10-29-2024 Lipase [Catalytic activity/Vol] 6 U/L Low 13-75 [facility] Comment on above: Result Comment: David marcus note: LIPASE revised reference range effective 22. New Lipase methodology. Expected to produce lower values than the previous assay method. NEW Reference Range: 13 - 75 U/L Performed By: #### L 501.5200, L501.2450, L500.4050, L100.0100 ####[facility] [id number] [place], [place], [address] Lipase measurementOrdered By : Anjelica Mendoza on 10-29-2024 Lipase [Catalytic activity/Vol] 6 U/L Low 13-75 [facility] Comment on above: Please note:LIPASE r evised reference range effective 22. New Lipase methodology. Expected to produce lower values than the previous assay method. NEW Reference Range: 13 - 75 U/L MCV (mean corpuscular volume ) determinationOrdered By: Anjelica Mendoza on 10-29-2024 MCV (RBC) [Entitic vol] 99.1 fL High 80-94 [facility] MR/BMS.IMBon 10-29-2024 MR/BMS.IMB [facility] [address] [place] [address] OFFICE VISIT Date of Service: 10/29/24 MR#: [id number] Acct: [id number] Name: MOUSTAPHA VASQUEZ Rep #: [id number] : 1950 Provider: Dr. Anjelica crawford MD Age/Sex: 74/M Location: [facility] Status: Signed Intake Vital Signs 07/21/24 10:06 10/29/24 11:11 Height 5 ft 8 in 5 ft 8 in Weight: 129 lb 4 oz 131 lb 8 oz BMI 19.6 20.0 BP 120/73 98/58 L Blood Pressure Location Lt brachial Lt brachial Position Sitting Sitting Respiration 16 16 Pulse 65 72 Pulse Source Monitor Monitor Temp 98.2 F 98.6 F Temp Source Temporal Temporal Pulse Oximetry (%) 98 97 Oxygen Delivery Method room air room air Intake Visit Reasons: BACK PAIN, FATIGUE Chief Complaint: Back pain, fatigue Software Client Architect Required: No Accompanied by: Self Is patient in pain?: Yes (Back and neck) Pain scale (1-10): 7 Allergies No Known Allergies Allergy (Verified 10/29/24 11:05) Medications ???Medication ???Instructions ???Recorded ???Confirmed ???Type Digestive Enzymes(mal,lac,inv) 2 tab PO/SL TIDCM DIGESTION 10/29/24 History aspirin 81 mg chewable tablet 81 mg PO BREAKFAST #30 tabs 10/29/24 Rx potassium chloride 20 mEq 20 meq PO TID #270 tabs 10/23/24 0 10/29/24 Rx tablet,extended release potassium chloride 20 mEq/15 mL 20 meq (15 mL) PO TID #1,500 mL 10/29/24 Rx oral liquid Have you fallen in the past year?: No [facility] Medical History (Updated 07/09/25 @ 13:[address] Anjelica Mendoza MD) Easy fatigability Thoracic back pain Dry mouth Nausea Hypokalemia Port Plalcement PIN IN LEFT ARM Herpes zoster Hearing loss Carotid artery stenosis Adenocarcinoma of pancreas Surgical History whipple surgery History of cholecystectomy Family History Son No problems noted. Sister Diabetes Mother CAD (coronary artery disease) Grandmother Breast cancer Social History Smoking Status: Never smoker alcohol intake: current alcohol intake frequency: holidays/special occasions only substance use type: does not use HPI HPI Chief Complaint: Back pain, fatigue Details: MOUSTAPHA VASQUEZ, is a 74 M who presents to the office today for an acute care follow-up visit. 74-year-old gentleman presented today with several acute onset issues. Moustapha has a history of pancreatic cancer, who underwent chemotherapy followed by resection, at [facility]. He has not had follow-up there really basically since then. We had several CAT scans over the ensuing years, showing no clear evidence of recurrence. He has had problems with regulation of potassium since then. Presumably related to his treatment program. He was profoundly protein calorie malnourished but that has gradually improved. Diet has somewhat improved, largely focusing on better quality foods. He has been having regular bowel movements he states, daily. About 2+ weeks ago, he developed back pain, neck pain and spasm. He really points to the area initially he believes to be along the right side of the neck to where he developed pain. He did see chiropractic and had an adjustment. He did not feel any better afterwards, felt somewhat worse. He had been dealing with the pain, symptomatically at home without any specific treatment plan. He did see a massage therapist for a single visit and that seemed to help some but still has back pain, and neck discomfort. There was no acute trauma leading up to this. No heavy lifting. He has not had a history of osteoporosis, osteoporotic fractures. He has no rash on his back. No fever or chills. However after this back pain and treatment had started with chiropractic and massage, he developed profound tiredness, fatigue beyond his usual, unsteadiness upon standing, and change in bowel movements. He describes the changes to be having several bowel movements daily which has seemingly gotten a little bit better. No blood in the stool. He describes the consistency to be somewhat thick cottage cheese. He has not had tenesmus, abdominal cramping, bloody stools, madalyn watery diarrhea, foul-smelling stools. He has not been out of the area recently, consuming his usual regular diet. He again does have problems regulation of potassium which has been relieved since he returned after treatment for the pancreatic CA. He has been on potassium supplement 20 mill equivalents 3 times daily and despite that his potassium at best is mild to moderately subnormal range. Sometimes he cannot get the third dose down. He complains of the pill sticking in the throat, just difficult to take on a 3 time a day basis. He has been trying to mix with applesauc (more content not included)... Normal [facility] Magnesiumon 10-29-2024 Magnesium [Mass/Vol] 1.9 mg/dL Normal 1.5-2.2 [facility] Comment on above: Performed By: #### L 501.5200, L501.2450, L500.4050, L100.0100 ####[facility] [id number] [place], [place], [id number] Magnesium measurement (mass/ volume)Ordered By: Anjelica Mendoza on 10-29-2024 Magnesium (Unsp spec) [Mass/Vol] 1.9 mg/dL 1.5-2.2 [facility] Mean corpuscular hemoglobin (MCH) determinationOrdered By: Anjelica Mendoza on 10-29-2024 MCH (RBC) [Entitic mass] 32.5 pg High 27.0-32.0 [facility] Mean corpuscular hemoglobin concentration (MCHC) determinationOrdered By: Anjelica Mendoza on 10-29-2024 MCHC (RBC) [Mass/Vol] 32.8 g/dL 32-36 [facility] Mean platelet volume determi nationOrdered By: Anjelica Mendoza on 10-29-2024 Platelet mean volume (Bld) [Entitic vol] 8.7 fL 6.2-12.0 [facility] Monocyte percentageOrdered B y: Anjelica Mendzoa on 10-29-2024 Monocytes/100 WBC (Bld) 7.7 % 0-10 [facility] Neutrophil percentageOrdered By: Anjelica Mendoza on 10-29-2024 Neutrophils/100 WBC (Bld) 73.8 % High 47-70 [facility] Nucleated red blood cell per centageOrdered By: Anjelica Mendoza on 10-29-2024 Nucleated RBC/100 WBC (Bld) [Ratio] 0 % 0-5 [facility] Platelet countOrdered By: Margarita Mendoza on 10-29-2024 Platelets (Bld) [#/Vol] 424 10*3/uL 150-450 [facility] Potassium measurement (mass/ volume)Ordered By: Anjelica Mendoza on 10-29-2024 Potassium (Unsp spec) [Mass/Vol] 4.4 mmol/L 3.3-5.1 [facility] RBC Auto (Bld) [#/Vol]Ordere d By: Anjelica Mendoza on 10-29-2024 RBC (Bld) [#/Vol] 3.35 10*6/uL Low 4.6-6.2 [facility] Serum creatinine measurement (mass/volume)Ordered By: Anjelica Mendoza on 10-29-2024 Creatinine [Mass/Vol] 0.99 mg/dL 0.70-1.20 [facility] Serum globulin measurementOr dered By: Anjelica Mendoza on 10-29-2024 Globulin (S) [Mass/Vol] 3.1 g/dL 2.2-4.2 [facility] Serum glucose measurement (m ass/volume)Ordered By: Anjelica Mendoza on 10-29-2024 Glucose [Mass/Vol] 122 mg/dL High 70-99 [facility] Serum or plasma alanine webster otransferase (ALT) measurementOrdered By: Anjelica Mendoza on 10-29-2024 ALT [Catalytic activity/Vol] 29 U/L <47 [facility] Serum or plasma albumin pretty urement (mass/volume)Ordered By: Anjelica Mendoza on 10-29-2024 Albumin [Mass/Vol] 2.9 g/dL Low 3.4-4.8 [facility] Serum or plasma albumin/glob ulin mass ratioOrdered By: Anjelica Mendoza on 10-29-2024 Albumin/Globulin [Mass ratio] 0.9 {ratio} 0.9-2.4 [facility] Serum or plasma alkaline rosenda sphatase measurementOrdered By: Anjelica Mendoza on 10-29-2024 ALP [Catalytic activity/Vol] 98 U/L 40-129 [facility] Serum or plasma calcium pretty urement (mass/volume)Ordered By: Anjelica Mendoza on 10-29-2024 Calcium [Mass/Vol] 8.3 mg/dL 7.6-11.0 [facility] Serum or plasma urea nitroge n measurement (mass/volume)Ordered By: Anjelica Mendoza on 10-29-2024 Urea nitrogen [Mass/Vol] 12 mg/dL 4-19 [facility] Sodium levelOrdered By: Martha Mendoza on 10-29-2024 Sodium [Moles/Vol] 138 mmol/L 133-145 [facility] Thoracic Spine 3 Viewson Thoracic Spine 3 Views [facility] [address] [place], [place] [address] Thoracic Spine 3 Views MR#: [id number] Acct: [id number] Name: MOUSTAPHA VASQUEZ Rep #: [id number] : 1950 M 74 From: Kisha graham MD PCP: Dr. Anjelica Mendoza MD Status: REG CLI Study: Thoracic Spine 3 Views Date of Exam: 10/29/24 Exam# [id number] Ordering Dr: Anjelica Mendoza MD PROCEDURE: THORACIC SPINE 3 VIEWS 10/29/2024 REASON FOR EXAM: THORACIC BACK PAIN TECHNIQUE: THORACIC SPINE 3 VIEWS COMPARISON: None FINDINGS: The vertebral alignment is maintained with no spondylolisthesis visualized. No evidence of vertebral body fracture. Intervertebral disc spaces are reduced and facet joint arthropathy. No scoliosis seen. Degenerative osteophytes seen. Normal paravertebral soft tissue densities noted. RAD/Thoracic Spine 3 Views IMPRESSION: Thoracic spondylosis. No acute fracture. Reading Location: [place] [address] CC: Dr. Anjelica Mendoza MD Mathematics Faculty Member: Signed Normal [facility] Total proteinOrdered By: Jessica Mendoza on 10-29-2024 Protein [Mass/Vol] 6.0 g/dL 5.9-8.4 [facility] Vitamin B12 ser/plasOrdered By: Anjelica Mendoza on 10-29-2024 Cobalamin (Vitamin B12) [Mass/Vol] 301 pg/mL 180-914 [facility] White blood cell (WBC) count Ordered By: Anjelica Mendoza on 10-29-2024 WBC (Bld) [#/Vol] 5.2 10*3/uL 4.4-11.0 [facility] MR/BMS.IMBon 07-21-2024 MR/BMS.IMB [facility] [address] [place] [address] OFFICE VISIT Date of Service: 07/21/24 MR#: [id number] Acct: [id number] Name: MOUSTAPHA VASQUEZ Rep #: [id number] : 1950 Provider: Dr. Anjelica crawford MD Age/Sex: 74/M Location[place] [facility] Status: Signed Intake Vital Signs 03/27/24 10:19 07/21/24 10:06 Height 5 ft 8 in 5 ft 8 in Weight: 129 lb 4 oz BMI 19.6 BP 120/73 Blood Pressure Location Lt brachial Position Sitting Respiration 16 Pulse 65 Pulse Source Monitor Temp 98.2 F Temp Source Temporal Pulse Oximetry (%) 98 Oxygen Delivery Method room air Intake Visit Reasons: Dry Mouth Chief Complaint: Dry Mouth Software Client Architect Required: No Accompanied by: Self Is patient in pain?: No Allergies No Known Allergies Allergy (Verified 07/21/24 10:00) Medications ???Medication ???Instructions ???Recorded ???Confirmed ???Type Digestive Enzymes(mal,lac,inv) 2 tab PO/SL TIDCM DIGESTION 07/21/24 History aspirin 81 mg chewable tablet 81 mg PO BREAKFAST #30 tabs 07/21/24 Rx potassium chloride 20 mEq 20 meq PO TID #270 tabs 10/04/23 0 07/21/24 Rx tablet,extended release Have you fallen in the past year?: No [facility] Medical History (Updated 07/21/24 @ 13:[address] Anjelica Mendoza MD) Dry mouth Nausea Hypokalemia Port Plalcement PIN IN LEFT ARM Herpes zoster Hearing loss Carotid artery stenosis Adenocarcinoma of pancreas Surgical History whipple surgery History of cholecystectomy Family History Son No problems noted. Sister Diabetes Mother CAD (coronary artery disease) Grandmother Breast cancer Social History Smoking Status: Never smoker alcohol intake: current alcohol intake frequency: holidays/special occasions only substance use type: does not use HPI HPI Chief Complaint: Dry Mouth Details: MOUSTAPHA VASQUEZ, is a 74 M who presents to the office today for an acute care follow-up visit. This is a 74-year-old gentleman who has a history of pancreatic adenocarcinoma, status postchemotherapy followed by surgical resection, [place] in [place]. Also history of TIA. He takes aspirin although he has not been taking that recently states. Otherwise he does take potassium supplement 20 mill equivalents p.o. 3 times daily. He has had hypokalemia, since he had been treated with chemotherapy, gemcitabine and paclitaxel. That was noted while at [facility]. In any event, he presents today with dry mouth. This been going on for some months, did briefly mention it in the past. Tends to somewhat come and go. He has been using some chewing gum which she normally does not do and that seems to help. He just wonders if there is anything that can be done. We spent a fair amount of time discussing this issue. My suspicion is that this is probably related to his cancer treatment that he had. He has no longstanding autoimmune types of problems that could be associated with dry mouth/Sj???gren's syndrome. He does not have dry eyes he states. This is not painful, but not burning or any other symptoms aside from dry. Does make it little bit more difficult to eat at times. He does note some sense that some foods will have slow transit through the esophagus but does not block up he states. It some sense of uncomfortable but not pain. He does drink a fair amount of water through the day and that helps as well with the mouth. However that his natural tendency is to drink more water. He did have influenza A recently. Apparently he waited several days, by the time he presented to the now clinic, it had already been about 5 or 6 days since the onset of symptoms. He tested positive for influenza A. He was not given Tamiflu. Symptomatic care but he really did not take any specific medications for that. He picked up a prescription that was sent but he side effects and did not take it. He is feeling better from that standpoint but that was about 10 days ago when he was there in urgent care. Review of systems per chart. States that he saw ENT locally for hearing aids but was not happy with those. He is thinking about other options. He returned the ones that they got for him. Physical exam. Vital signs on chart. PERRLA. Sclera are clear. TMs are unremarkable with normal light reflexes. Minimal ceruminosis bilateral. Canals are unremarkable. Posterior pharynx is unremarkable. Good dentition. No cervical or supraclavicular lymph nodes enlarged or tender. No clear thyromegaly. No thyroid nodules readily palpable. Lungs are without wheeze, rhonchi, rales. No E/A changes are heard. Heart is regular. Not tachycardic. No clear murmur, rub, or gallop is ident (more content not included)... Normal [facility] Chest PA and Lateralon 07-10 Chest PA and Lateral [facility] [address], [place] [id number] Chest PA and Lateral MR#: [id number] Acct: [id number] Name: MOUSTAPHA VASQUEZ Rep #: [id number] : 1950 M 74 From: Suresh Rasmussen MD PCP: Dr. Anjelica Mendoza MD Status: REG CLI Study: Chest PA and Lateral Date of Exam: 07/10/24 Exam# [id number] Ordering Dr: Arsen Delcid PA PROCEDURE: CHEST PA AND LATERAL (RADCXR), 07/10/2024 REASON FOR EXAM: COUGH TECHNIQUE: PA and lateral views of the chest were obtained. COMPARISON: 04/26/2022 FINDINGS: Heart: Unremarkable. Mediastinum: Unremarkable. Lungs/pleura: Similar elevation of the RIGHT hemidiaphragm. No convincing focal consolidation. No pleural effusion or visible pneumothorax. Bones: Suspect demineralization. Multilevel spondylosis.. Other: None. RAD/Chest PA and Lateral IMPRESSION: 1. No visible acute cardiopulmonary findings 2. Additional description as above. Reading Location: [id number] CC: LUCRECIA Prieto; Dr. Anjelica Mendoza MD Mathematics Faculty Member: Signed Normal [facility] No Panel InformationOrdered By: Arsen Delcid on 07-10-2024 Influenza Types A,B Rapid (Clinic) Pos FLU A &Neg FLU B [facility] Urgent Care Visit Reporton 0 07-10-2024 Urgent Care Visit Report [facility] [address], [address] [place] [id number] OFFICE VISIT Date of Service: 07/10/24 MR#: [id number] Acct: [id number] Name: MOUSTAPHA VASQUEZ Rep #: [id number] : 1950 Provider: LUCRECIA Prieto Age/Sex: 74/M Location[place] [facility] [place] Status: Signed Intake Vital Signs 03/27/24 10:19 07/10/24 12:34 Height 5 ft 8 in Weight: 137 lb 8 oz BMI 20.9 BP 117/62 98/60 Blood Pressure Location Lt brachial Position Sitting Sitting Respiration 16 Pulse 77 61 Pulse Source Monitor Temp 98.6 F 98.0 F Temp Source Temporal Oral Pulse Oximetry (%) 97 96 Oxygen Delivery Method room air room air Intake Visit Reasons: Cough/ CLOGGED EARS Accompanied by: Self Allergies No Known Allergies Allergy (Verified 07/10/24 12:41) Medications ???Medication ???Instructions ???Recorded ???Confirmed ???Type Digestive Enzymes(mal,lac,inv) 2 tab PO/SL TIDCM DIGESTION 07/10/24 History aspirin 81 mg chewable tablet 81 mg PO BREAKFAST #30 tabs 07/10/24 Rx potassium chloride 20 mEq 20 meq PO TID #270 tabs 10/04/23 0 07/10/24 Rx tablet,extended release Have you fallen in the past year?: No Nurse's Note: Patient has a cough, and he is tired. Patient states his nose was plugged when this all first started on Sunday, but its not anymore. Patient has no wheezing or SOB but he is concerned for pneumonia. Patient also states that his ear are clogged. [facility] Medical History (Updated 07/10/24 @ 13:14 by LUCRECIA Pal) Nausea Hypokalemia Port Plalcement PIN IN LEFT ARM Herpes zoster Hearing loss Carotid artery stenosis Adenocarcinoma of pancreas Surgical History (Updated 03/27/24 @ 12:[address] Anjelica Mendoza MD) whipple surgery History of cholecystectomy Family History Son No problems noted. Sister Diabetes Mother CAD (coronary artery disease) Grandmother Breast cancer Social History Smoking Status: Never smoker alcohol intake: current alcohol intake frequency: holidays/special occasions only substance use type: does not use HPI HPI Details: MOUSTAPHA VASQUEZ, is a 74 M who presents to the office today for complaint of cough, congestion, fatigue and chills along with sweats. Patient states this started 5 days ago. Patient denies nausea, vomiting or diarrhea. No hemoptysis, shortness of breath or difficulty breathing. No loss of taste or smell. No other associated symptoms or alleviating/aggravating factors. ROS Const Constitutional: Positive for other (6 system ROS completed with pertinent findings in the HPI otherwise normal.) Exam Const General: cooperative and well developed HENUT Head: normal to inspection and atraumatic Ears: hearing grossly normal bilaterally Nose: nasal discharge clear Face and sinus: normal facial exam Mouth: oral mucosae normal Throat: abnormal tonsil bilaterally hypertrophy 1+ Resp Effort Inspection: normal respiratory effort and no audible wheezes Auscultation: Bilateral: Clear to Auscultation Cardio Rate: regular rate Rhythm: regular rhythm Neuro General: patient alert Psych Appearance: grossly normal Mental Status: mental status grossly normal Results POC FLU A B Office Flu A B Pos FLU A Neg FLU B Last Edit by Edita Liu MA on 07/10/24 13:09 Coding Level of Care Code Off vis,est,level 4 Diagnoses Influenza due to influenza virus, type A, human J10.1 Assessment and Plan Assessment and Plan (1) Influenza due to influenza virus, type A, human: Status: Acute Orders: Orders Chest PA and Lateral Today R05.9 - Cough, unspecified POC FLU A B Today R05.9 - Cough, unspecified Plan Chest x-ray two-view read and interpreted by myself finding no cardiopulmonary disease. Awaiting radiology interpretation at time of patient discharge. Encouraged to get plenty of rest, drink lots of clear liquids, and use Tylenol or Ibuprofen (unless contraindicated) for fever and comfort. Patient also educated on other symptomatic management techniques. To be seen in 7-10 days if no improvement; sooner if worsening of symptoms. Patient advised of potential red flags and when appropriate to report to the ED. Patient verbalized understanding and agreement with all the above. Clinical Quality Measures Falls Risk Screening/Assistive Devices Have you fallen in the past year?: No 07/10/24 1320 Date Arsen Hammond Signature: Date (if applicable) CC: Normal [facility] Aldosterone, Serumon 2 024 ALDOSTERONE,S 1.3 ng/dL Normal 0.0-30.0 [facility] Comment on above: Order Comment: Test( s) 444100-Szwdk Activity, Plasma was developed and its performance characteristics determined by [employer]. It has not been cleared or approved by the Food and Drug Administration. Performed By: #### L 509.6000, L3400.4000, L3300.1100 #### [facility] [address] [place], [place], [id number] Renin, Plasmaon 04-11-2024 RENIN, PLASMA 0.560 ng/mL/hr Normal 0.167-5.380 [facility] Comment on above: Order Comment: Test( s) 433923-Rmenz Activity, Plasma was developed and its performance characteristics determined by [employer]. It has not been cleared or approved by the Food and Drug Administration. Performed By: #### L 509.6000, L3400.4000, L3300.1100 #### [facility] [address] [place], [address] Aldosterone, serumOrdered By : Anjelica Mendoza on 04-01-2024 Aldosterone 1.3 ng/dL 0.0-30.0 [facility] CORTISOL SERUMon 04-01-2024 CORTISOL 13.80 ug/dL Normal 3.44-22.45 [facility] Comment on above: Result Comment: Adul t (AM) 5.27 - 22.45 ug/dL Adult (PM) 3.44 - 16.76 ug/dL Performed By: #### L 509.6000, L3400.4000, L3300.1100 #### [facility] [address] [place], [address] Cortisol [Mass/Vol]Ordered B y: Anjelcia Mendoza on 04-01-2024 Cortisol 13.80 ug/dL 3.44-22.45 [facility] Comment on above: Adult (AM) 5.27 - 22 .45 ug/dL Adult (PM) 3.44 - 16.76 ug/dL Renin (P) [Catalytic activit y/Vol]Ordered By: Anjelica Mendoza on 04-01-2024 Renin 0.560 ng/mL/hr 0.167-5.380 [facility] Absolute neutrophil countOrd ered By: Anjelica Mendoza on 03-27-2024 Neutrophils (Bld) [#/Vol] 2.4 10*3/uL 2.0-7.7 [facility] Albumin to globulin ratioOrd ered By: Anjelica Mendoza on 03-27-2024 Albumin/Globulin [Mass ratio] 1.1 {ratio} 0.9-2.4 [facility] Basophil percentageOrdered B y: Anjelica Mendoza on 03-27-2024 Basophils/100 WBC (Bld) 1.3 % High 0-1 [facility] Bilirubin, totalOrdered By: Anjelica Mendoza on 03-27-2024 Bilirubin [Mass/Vol] 0.50 mg/dL 0.20-1.00 [facility] Comment on above: For patients on eltr ombopag therapy, use of Dimension [place] TBIL is not recommended. Blood urea nitrogen (BUN)/cr eatinine ratioOrdered By: Anjelica Mendoza on 03-27-2024 Urea nitrogen/Creatinine [Mass ratio] 14.0 mg/mg 10- [facility] CBC W/Diff, Automatedon Absolute Lymph 0.73 X10 3/uL Low 0.83-4.51 [facility] Comment on above: Performed By: #### L 500.4050, L501.5200, L501.9520, L100.0100 ####[facility] [address] [place], [address] Absolute Neut 2.4 X10 3/uL Normal 2.0-7.7 [facility] Comment on above: Performed By: #### L 500.4050, L501.5200, L501.9520, L100.0100 ####[facility] [address] [place], [address] Basophils/100 WBC (Bld) 1.3 % High 0-1 [facility] Comment on above: Performed By: #### L 500.4050, L501.5200, L501.9520, L100.0100 ####[facility] [address] [place], [address] Eosinophils/100 WBC (Bld) 10.5 % High 0-5 [facility] Comment on above: Performed By: #### L 500.4050, L501.5200, L501.9520, L100.0100 ####[facility] [address] [place], [address] Erythrocyte distribution width (RBC) [Ratio] 15.1 % High 11.6-14.6 [facility] Comment on above: Performed By: #### L 500.4050, L501.5200, L501.9520, L100.0100 ####[facility] [address] [place], [address] Hematocrit (Bld) [Volume fraction] 37.3 % Low 40-54 [facility] Comment on above: Performed By: #### L 500.4050, L501.5200, L501.9520, L100.0100 ####[facility] [address] [place], [address] Hemoglobin (Bld) [Mass/Vol] 12.4 g/dL Low 13.0-16.5 [facility] Comment on above: Performed By: #### L 500.4050, L501.5200, L501.9520, L100.0100 ####[facility] [address] [place], [address] IG% 0.300 Normal 0.0-0.9 [facility] Comment on above: Result Comment: IG% - Immature Granulocytes (promyelocytes, myelocytes and metamyelocytes) > 1% indicates that a LEFT SHIFT is Present. Performed By: #### L 500.4050, L501.5200, L501.9520, L100.0100 ####[facility] [address] [place], [address] Lymphocytes/100 WBC (Bld) 18.6 % Low 19-41 [facility] Comment on above: Performed By: #### L 500.4050, L501.5200, L501.9520, L100.0100 ####[facility] [address] [place], [address] MCH (RBC) [Entitic mass] 32.6 pg High 27.0-32.0 [facility] Comment on above: Performed By: #### L 500.4050, L501.5200, L501.9520, L100.0100 ####[facility] [address] [place], [address] MCHC (RBC) [Mass/Vol] 33.2 g/dL Normal 32-36 [facility] Comment on above: Performed By: #### L 500.4050, L501.5200, L501.9520, L100.0100 ####[facility] [address] [place], [address] MCV (RBC) [Entitic vol] 98.2 fL High 80-94 [facility] Comment on above: Performed By: #### L 500.4050, L501.5200, L501.9520, L100.0100 ####[facility] [address] [place], [address] Monocytes/100 WBC (Bld) 9.2 % Normal 0-10 [facility] Comment on above: Performed By: #### L 500.4050, L501.5200, L501.9520, L100.0100 ####[facility] [address] [place], [address] Neutrophils/100 WBC (Bld) 60.1 % Normal 47-70 [facility] Comment on above: Performed By: #### L 500.4050, L501.5200, L501.9520, L100.0100 ####[facility] [address] [place], [address] Nucleated RBC (Bld) [#/Vol] 0 10*3/uL Normal 0-5 [facility] Comment on above: Performed By: #### L 500.4050, L501.5200, L501.9520, L100.0100 ####[facility] [address] [place], [address] Platelet mean volume (Bld) [Entitic vol] 9.1 fL Normal 6.2-12.0 [facility] Comment on above: Performed By: #### L 500.4050, L501.5200, L501.9520, L100.0100 ####[facility] [address] [place], [address] Platelets (Bld) [#/Vol] 268 10*3/uL Normal 150-450 [facility] Comment on above: Performed By: #### L 500.4050, L501.5200, L501.9520, L100.0100 ####[facility] [address] [place], [address] RBC (Bld) [#/Vol] 3.80 10*6/uL Low 4.6-6.2 [facility] Comment on above: Performed By: #### L 500.4050, L501.5200, L501.9520, L100.0100 ####[facility] [address] [place], [address] RDW SD 54.4 fl High 35.1-43.9 [facility] Comment on above: Performed By: #### L 500.4050, L501.5200, L501.9520, L100.0100 ####[facility] [address] [place], [address] WBC (Bld) [#/Vol] 3.9 10*3/uL Low 4.4-11.0 [facility] Comment on above: Performed By: #### L 500.4050, L501.5200, L501.9520, L100.0100 ####[facility] [address] [place], [address] Carbon dioxide measurementOr dered By: Anjelica Mendoza on 03-27-2024 CO2 [Moles/Vol] 21.0 mmol/L 21.0-32.0 [facility] Chloride measurementOrdered By: Anjelica Mendoza on 03-27-2024 Chloride [Moles/Vol] 119 mmol/L High 98-107 [facility] Comprehensive Metabolic Prof ilon 03-27-2024 Albumin [Mass/Vol] 3.5 g/dL Normal 3.2-5.0 [facility] Comment on above: Performed By: #### L 500.4050, L501.5200, L501.9520, L100.0100 ####[facility] [address] [place], [address] Albumin/Globulin [Mass ratio] 1.1 {ratio} Normal 0.9-2.4 [facility] Comment on above: Performed By: #### L 500.4050, L501.5200, L501.9520, L100.0100 ####[facility] [address] [place], [address] ALK P 91 U/L Normal 45-117 [facility] Comment on above: Performed By: #### L 500.4050, L501.5200, L501.9520, L100.0100 ####[facility] [address] [place], [address] ALT [Catalytic activity/Vol] 37 U/L Normal 16-61 [facility] Comment on above: Performed By: #### L 500.4050, L501.5200, L501.9520, L100.0100 ####[facility] [address] [place], [address] AST [Catalytic activity/Vol] 23 U/L Normal 15-37 [facility] Comment on above: Performed By: #### L 500.4050, L501.5200, L501.9520, L100.0100 ####[facility] [address] [place], [address] Bilirubin [Mass/Vol] 0.50 mg/dL Normal 0.20-1.00 [facility] Comment on above: Result Comment: For patients on eltrombopag therapy, use of Dimension Chandler TBIL is not recommended. Performed By: #### L 500.4050, L501.5200, L501.9520, L100.0100 ####[facility] [address] [place], [address] BUN/CRE 14.0 RATIO Normal 10-20 [facility] Comment on above: Performed By: #### L 500.4050, L501.5200, L501.9520, L100.0100 ####[facility] [address] [place], [address] CA,Total 8.4 mg/dL Low 8.5-10.1 [facility] Comment on above: Performed By: #### L 500.4050, L501.5200, L501.9520, L100.0100 ####[facility] [address] [place], [address] Chloride [Moles/Vol] 119 mmol/L High 98-107 [facility] Comment on above: Performed By: #### L 500.4050, L501.5200, L501.9520, L100.0100 ####[facility] [address] [place], [address] CO2 [Moles/Vol] 21.0 mmol/L Normal 21.0-32.0 [facility] Comment on above: Performed By: #### L 500.4050, L501.5200, L501.9520, L100.0100 ####[facility] [address] [place], [address] Creatinine [Mass/Vol] 1.07 mg/dL Normal 0.70-1.30 [facility] Comment on above: Result Comment: The validity of the calculated GFR GFRAA in patients over 70 years has not been determined. Clinical correlation is essential. Performed By: #### L 500.4050, L501.5200, L501.9520, L100.0100 ####[facility] [address] [place], [address] EST GFR - AA 87 mL/min Normal >60 [facility] Comment on above: Result Comment: Afri can Turkish GFR Calc Performed By: #### L 500.4050, L501.5200, L501.9520, L100.0100 ####[facility] [address] [place], [address] GAP 4 Low 5-15 [facility] Comment on above: Performed By: #### L 500.4050, L501.5200, L501.9520, L100.0100 ####[facility] [address] [place], [address] GFR/1.73 sq M.predicted among non-blacks MDRD (S/P/Bld) [Vol rate/Area] 72 mL/min/{1.73_m2} Normal >60 [facility] Comment on above: Result Comment: Non- GFR Calc Performed By: #### L 500.4050, L501.5200, L501.9520, L100.0100 ####[facility] [address] [place], [address] Globulin (S) [Mass/Vol] 3.2 g/dL Normal 2.2-4.2 [facility] Comment on above: Performed By: #### L 500.4050, L501.5200, L501.9520, L100.0100 ####[facility] [address] [place], [address] Glucose [Mass/Vol] 140 mg/dL High 74-106 [facility] Comment on above: Result Comment: Fast ing Glucose result greater than or equal to 126 mg/dL suggests DIABETES MELLITUS per A.D.A. criteria. Performed By: #### L 500.4050, L501.5200, L501.9520, L100.0100 ####[facility] [address] [place], [address] Potassium [Moles/Vol] 2.9 mmol/L Low 3.5-5.1 [facility] Comment on above: Performed By: #### L 500.4050, L501.5200, L501.9520, L100.0100 ####[facility] [address] [place], [address] Sodium [Moles/Vol] 144 mmol/L Normal 136-145 [facility] Comment on above: Performed By: #### L 500.4050, L501.5200, L501.9520, L100.0100 ####[facility] [address] [place], [address] T PROT 6.7 g/dL Normal 6.4-8.2 [facility] Comment on above: Performed By: #### L 500.4050, L501.5200, L501.9520, L100.0100 ####[facility] [address] [place], [address] Urea nitrogen [Mass/Vol] 15 mg/dL Normal 7-18 [facility] Comment on above: Performed By: #### L 500.4050, L501.5200, L501.9520, L100.0100 ####[facility] [address] [place], [address] Eosinophil percentageOrdered By: Anjelica Mendoza on 03-27-2024 Eosinophils/100 WBC (Bld) 10.5 % High 0-5 [facility] Erythrocyte distribution wid th ratioOrdered By: Anjelica Mendoza on 03-27-2024 Erythrocyte distribution width (RBC) [Ratio] 15.1 % High 11.6-14.6 [facility] Erythrocyte distribution wid th standard deviationOrdered By: Anjelica Mendoza on 03-27-2024 Erythrocyte distribution width (RBC) [Entitic vol] 54.4 fL High 35.1-43.9 [facility] Estimated glomerular filtrat ion rate (GFR) AmericanOrdered By: Anjelica Mendoza on 03-27-2024 Estimated GFR (MDRD) Amer 87 mL/min >60 [facility] Comment on above: GFR Calc Glomerular filtration rate ( GFR) estimationOrdered By: Anjelica Mendoza on 03-27-2024 Estimated GFR (MDRD) Non-Af Amer 72 mL/min >60 [facility] Comment on above: Non- GFR Calc Glucose measurementOrdered B y: Anjelica Mendoza on 03-27-2024 Glucose [Mass/Vol] 140 mg/dL High 74-106 [facility] Comment on above: Fasting Glucose resu lt greater than or equal to 126 mg/dL suggests DIABETES MELLITUS per A.D.A. criteria. Hematocrit Auto (Bld) [Volum e fraction]Ordered By: Anjelica Mendoza on 03-27-2024 Hematocrit (Bld) [Volume fraction] 37.3 % Low 40-54 [facility] Hemoglobin measurementOrdere d By: Anjelica Mendoza on 03-27-2024 Hemoglobin (Bld) [Mass/Vol] 12.4 g/dL Low 13.0-16.5 [facility] Immature granulocytes/100 WB C Auto (Bld)Ordered By: Anjelica Mendoza on 03-27-2024 Immature granulocytes/100 WBC (Bld) 0.300 % 0.0-0.9 [facility] Comment on above: IG% - Immature Granu locytes (promyelocytes, myelocytes and metamyelocytes) > 1% indicates that a LEFT SHIFT is Present. Laboratory - Chemistry and C hemistry - challengeOrdered By: Anjelica Mendoza on 03-27-2024 AST [Catalytic activity/Vol] 23 U/L 15-37 [facility] Lymphocytes Auto (Unsp spec) [#/Vol]Ordered By: Anjelica Mendoza on 03-27-2024 Lymphocytes (Bld) [#/Vol] 0.73 10*3/uL Low 0.83-4.51 [facility] Lymphocytes/100 WBC Auto (Un sp spec)Ordered By: Anjelica Mendoza on 03-27-2024 Lymphocytes/100 WBC (Bld) 18.6 % Low 19-41 [facility] MCV (mean corpuscular volume ) determinationOrdered By: Anjelica Mendoza on 03-27-2024 MCV (RBC) [Entitic vol] 98.2 fL High 80-94 [facility] MR/BMS.IMBon 03-27-2024 MR/BMS.IMB [facility] [address] [place], [place] [address] OFFICE VISIT Date of Service: 03/27/24 MR#: [id number] Acct: [id number] Name: MOUSTAPHA VASQUEZ Rep #: [id number] : 1950 Provider: Dr. Anjelica crawford MD Age/Sex: 73/M Location: [facility] Status: Signed Intake Vital Signs 06/15/23 21:16 03/27/24 10:19 Height 5 ft 8 in 5 ft 8 in Weight: 137 lb 8 oz BMI 20.9 BP 117/62 Blood Pressure Location Lt brachial Position Sitting Respiration 16 Pulse 77 Pulse Source Monitor Temp 98.6 F Temp Source Temporal Pulse Oximetry (%) 97 Oxygen Delivery Method room air Intake Visit Reasons: Annual/Physical Chief Complaint: annual/physical Software Client Architect Required: No Accompanied by: Self Is patient in pain?: No Allergies No Known Allergies Allergy (Verified 03/27/24 10:10) Medications ???Medication ???Instructions ???Recorded ???Confirmed ???Type Digestive Enzymes(mal,lac,inv) 2 tab PO/SL TIDCM DIGESTION 04/26/22 03/27/24 History aspirin 81 mg chewable tablet 81 mg PO BREAKFAST #30 tabs 04/27/22 03/27/24 Rx potassium chloride 20 mEq 20 meq PO TID #270 tabs 10/04/23 03/27/24 Rx tablet,extended release Have you fallen in the past year?: No PFSH Medical History (Updated 03/27/24 @ 10:[address] Anjelica Mendoza MD) Nausea Hypokalemia Port Plalcement PIN IN LEFT ARM Herpes zoster Hearing loss Carotid artery stenosis Adenocarcinoma of pancreas Surgical History (Updated 03/27/24 @ 12:[address] Anjelica Mendoza MD) whipple surgery History of cholecystectomy Family History Son No problems noted. Sister Diabetes Mother CAD (coronary artery disease) Grandmother Breast cancer Social History Smoking Status: Never smoker alcohol intake: current alcohol intake frequency: holidays/special occasions only substance use type: does not use HPI HPI Chief Complaint: annual/physical Details: MOUSTAPHA VASQUEZ, is a 73 M who presents to the office today for an acute care follow-up visit for nausea episodes. 73-year-old gentleman who had pancreatic cancer, initially diagnosed August 2019. He ultimately decided to go to [facility] where he underwent chemotherapy regimen, regimen that included probiotics that were in evaluation and then ultimately Whipple procedure. I saw him in 2020 after he had surgery. He had gradually improved. To this point there is been no recurrence of or evidence of recurrence of malignancy. He has been having nausea episodes however, pretty much on a daily basis. Does not wake with it in the morning and does not wake him up at night. He describes this seemingly most frequently as being perhaps an hour or so after eating. No accompanying vomiting. He has noted this over about 6 months, after I had last seen him. He may have had some minor episodes of this in the past but really did not think much of it but they are now more frequent, pretty much daily. He will feel weak, tired when these come as well. Will last a certain length of time, perhaps half hour to an hour and then we will rapidly clear and he feels like he is back to normal. From a diet standpoint he is eating a reasonable quality diet. No red meat but does eat some fish, and a lot of fruits and vegetables. He was instructed previously about doing small more frequent meals but basically has not been doing that. Sometimes he will only eat a couple of times a day. Bowel movements are regular. More formed than they had in the past over the last several months. Seemingly somewhat larger but again firmer but not hard and not constipated. He has not checked his sugar with any of these episodes. Has not checked blood pressure with these episodes either. Review of systems per chart. Physical exam. Vital signs on chart. PERRLA. Sclera are clear. TMs are unremarkable with normal light reflexes. Canals are unremarkable. Posterior pharynx is unremarkable. Good dentition. No cervical or supraclavicular lymph nodes enlarged or tender. No clear thyromegaly. No thyroid nodules readily palpable. Lungs are without wheeze, rhonchi, rales. No E/A changes are heard. Heart is regular. Not tachycardic. No clear murmur, rub, or gallop is identified. The abdomen is soft. Bowel sounds are present. Nontender nondistended abdomen. No clear palpable masses in the abdomen. No significant leg edema. No obvious rashes. ROS Const Constitutional: Positive for fatigue; No body ache, chills, excessive sweating, fever(s), frequent falls, headache(s), snoring, weakness or change in appetite Eyes Eyes: No blurry vision, change in vision, eye pain or Light sensitivity ENT ENT: No abnormal hearing, ear or mastoid pain, tinnitus, nasal congestion, headache(s), neck pa (more content not included)... Normal [facility] Magnesiumon 03-27-2024 Magnesium [Mass/Vol] 2.4 mg/dL Normal 1.6-2.6 [facility] Comment on above: Performed By: #### L 500.4050, L501.5200, L501.9520, L100.0100 ####[facility] [address] [place], [address] Magnesium measurementOrdered By: Anjelica Mendoza on 03-27-2024 Magnesium [Mass/Vol] 2.4 mg/dL 1.6-2.6 [facility] Mean corpuscular hemoglobin (MCH) determinationOrdered By: Anjelica Mendoza on 03-27-2024 MCH (RBC) [Entitic mass] 32.6 pg High 27.0-32.0 [facility] Mean corpuscular hemoglobin concentration (MCHC) determinationOrdered By: Anjelica Mendoza on 03-27-2024 MCHC (RBC) [Mass/Vol] 33.2 g/dL 32-36 [facility] Mean platelet volume determi nationOrdered By: Anjelica Mendoza on 03-27-2024 Platelet mean volume (Bld) [Entitic vol] 9.1 fL 6.2-12.0 [facility] Monocyte percentageOrdered B y: Anjelica Mendoza on 03-27-2024 Monocytes/100 WBC (Bld) 9.2 % 0-10 [facility] Neutrophil percentageOrdered By: Anjelica Mendoza on 03-27-2024 Neutrophils/100 WBC (Bld) 60.1 % 47-70 [facility] Nucleated red blood cell per centageOrdered By: Anjelica Mendoza on 03-27-2024 Nucleated RBC/100 WBC (Bld) [Ratio] 0 % 0-5 [facility] Platelet countOrdered By: Margarita Mendoza on 03-27-2024 Platelets (Bld) [#/Vol] 268 10*3/uL 150-450 [facility] Potassium measurementOrdered By: Anjelica Mendoza on 03-27-2024 Potassium [Moles/Vol] 2.9 mmol/L Low 3.5-5.1 [facility] RBC Auto (Bld) [#/Vol]Ordere d By: Anjelica Mendoza on 03-27-2024 RBC (Bld) [#/Vol] 3.80 10*6/uL Low 4.6-6.2 [facility] Serum anion gap measurementO rdered By: Anjelica Mendoza on 03-27-2024 Anion gap [Moles/Vol] 4 mmol/L Low 5-15 [facility] Serum globulin measurementOr dered By: Anjelica Mendoza on 03-27-2024 Globulin (S) [Mass/Vol] 3.2 g/dL 2.2-4.2 [facility] Serum or plasma alanine webster otransferase (ALT) measurementOrdered By: Anjelica Mendoza on 03-27-2024 ALT [Catalytic activity/Vol] 37 U/L 16-61 [facility] Serum or plasma albumin pretty urement (mass/volume)Ordered By: Anjelica Mendoza on 03-27-2024 Albumin [Mass/Vol] 3.5 g/dL 3.2-5.0 [facility] Serum or plasma alkaline rosenda sphatase measurementOrdered By: Anjelica Mendoza on 03-27-2024 ALP [Catalytic activity/Vol] 91 U/L 45-117 [facility] Serum or plasma calcium pretty urement (mass/volume)Ordered By: Anjelica Mendoza on 03-27-2024 Calcium [Mass/Vol] 8.4 mg/dL Low 8.5-10.1 [facility] Serum or plasma creatinine m easurement (mass/volume)Ordered By: Anjelica Mendoza on 03-27-2024 Creatinine [Mass/Vol] 1.07 mg/dL 0.70-1.30 [facility] Comment on above: The validity of the calculated GFR & GFRAA in patients over 70 years has not been determined. Clinical correlation is essential. Serum or plasma urea nitroge n measurement (mass/volume)Ordered By: Anjelica Mendoza on 03-27-2024 Urea nitrogen [Mass/Vol] 15 mg/dL 7-18 [facility] Sodium levelOrdered By: Martha Mendoza on 03-27-2024 Sodium [Moles/Vol] 144 mmol/L 136-145 [facility] TSH QnOrdered By: Anjelica Dickson hner on 03-27-2024 Thyroid Stimulating Hormone (TSH) 3.020 uIU/mL 0.358-3.740 [facility] Thyroid Stim Hormone (TSH)on 03-27-2024 TSH 3.020 uIU/mL Normal 0.358-3.740 [facility] Comment on above: Performed By: #### L 500.4050, L501.5200, L501.9520, L100.0100 ####[facility] [address] [place], [address] Total proteinOrdered By: Jessica Mendoza on 03-27-2024 Protein [Mass/Vol] 6.7 g/dL 6.4-8.2 [facility] White blood cell (WBC) count Ordered By: Anjelica Mendoza on 03-27-2024 WBC (Bld) [#/Vol] 3.9 10*3/uL Low 4.4-11.0 [facility] Basophil percentageOrdered B y: Anjelica Mendoza on 05-09-2023 Chloride [Moles/Vol] 115 mmol/L 98-107 [facility] Glucose [Mass/Vol] 94 mg/dL 74-106 [facility] Potassium [Moles/Vol] 3.1 mmol/L 3.5-5.1 [facility] Sodium [Moles/Vol] 145 mmol/L 136-145 [facility] Laboratory - Chemistry and C hemistry - challengeOrdered By: Anjelica Mendoza on 05-09-2023 CO2 [Moles/Vol] 26.0 mmol/L 21.0-32.0 [facility] Magnesium [Mass/Vol] 2.3 mg/dL 1.6-2.6 [facility] Sodium (U) [Moles/Vol] 92 mmol/L Not Establ. [facility] Urea nitrogen/Creatinine [Mass ratio] 18.7 mg/mg 10-20 [facility] No Panel InformationOrdered By: Anjelica Mendoza on 05-09-2023 Estimated GFR (MDRD) Amer 114 mL/min >60 [facility] Comment on above: GFR Calc Estimated GFR (MDRD) Non-Af Amer 94 mL/min >60 [facility] Comment on above: Non- GFR Calc Urine Potassium 7.0 mmol/L Not Establ. [facility] Serum or plasma calcium pretty urement (mass/volume)Ordered By: Anjelica Mendoza on 05-09-2023 Calcium [Mass/Vol] 8.6 mg/dL 8.5-10.1 [facility] Serum or plasma creatinine m easurement (mass/volume)Ordered By: Anjelica Mendoza on 05-09-2023 Creatinine [Mass/Vol] 0.86 mg/dL 0.70-1.30 [facility] Comment on above: The validity of the calculated GFR & GFRAA in patients over 70 years has not been determined. Clinical correlation is essential. Serum or plasma urea nitroge n measurement (mass/volume)Ordered By: Anjelica Mendoza on 05-09-2023 Urea nitrogen [Mass/Vol] 16 mg/dL 7-18 [facility] Thin prep Papanicolaou smear with manual screeningOrdered By: Anjelica Mendoza on 05-09-2023 Thin prep Papanicolaou smear with manual screening 4 5-15 [facility] Urine chloride measurement ( moles/volume)Ordered By: Anjelica Mendoza on 05-09-2023 Chloride (U) [Moles/Vol] 113 mmol/L Not Establ. [facility] Basophil percentageOrdered B y: Dr. Mendoza on 09-12-2022 Chloride [Moles/Vol] 115 mmol/L 98-107 [facility] Glucose [Mass/Vol] 79 mg/dL 74-106 [facility] Potassium [Moles/Vol] 2.9 mmol/L 3.5-5.1 [facility] Sodium [Moles/Vol] 144 mmol/L 136-145 [facility] Laboratory - Chemistry and C hemistry - challengeOrdered By: Dr. Mendoza on 09-12-2022 CO2 [Moles/Vol] 22.0 mmol/L 21.0-32.0 [facility] Urea nitrogen/Creatinine [Mass ratio] 20.2 mg/mg 10-20 [facility] No Panel InformationOrdered By: Dr. Mendoza on 09-12-2022 Estimated GFR (MDRD) Amer 116 mL/min >60 [facility] Comment on above: GFR Calc Estimated GFR (MDRD) Non-Af Amer 96 mL/min >60 [facility] Comment on above: Non- GFR Calc Serum or plasma calcium pretty urement (mass/volume)Ordered By: Dr. Mendoza on 09-12-2022 Calcium [Mass/Vol] 7.8 mg/dL 8.5-10.1 [facility] Serum or plasma creatinine m easurement (mass/volume)Ordered By: Dr. Mendoza on 09-12-2022 Creatinine [Mass/Vol] 0.84 mg/dL 0.70-1.30 [facility] Comment on above: The validity of the calculated GFR & GFRAA in patients over 70 years has not been determined. Clinical correlation is essential. Serum or plasma urea nitroge n measurement (mass/volume)Ordered By: Dr. Mendoza on 09-12-2022 Urea nitrogen [Mass/Vol] 17 mg/dL 7-18 [facility] Thin prep Papanicolaou smear with manual screeningOrdered By: Dr. Mendoza on 09-12-2022 Thin prep Papanicolaou smear with manual screening 7 5-15 [facility] Basophil percentageOrdered B y: Dr. Mendoza on 07-17-2022 Chloride [Moles/Vol] 117 mmol/L 98-107 [facility] Glucose [Mass/Vol] 116 mg/dL 74-106 [facility] Comment on above: Fasting Glucose resu lt from 100 to 125 mg/dL suggests IMPAIRED HOMEOSTASIS per A.D.A. criteria. Potassium [Moles/Vol] 3.2 mmol/L 3.5-5.1 [facility] Sodium [Moles/Vol] 144 mmol/L 136-145 [facility] Laboratory - Chemistry and C hemistry - challengeOrdered By: Dr. Mendoza on 07-17-2022 CO2 [Moles/Vol] 22.0 mmol/L 21.0-32.0 [facility] Urea nitrogen/Creatinine [Mass ratio] 20.3 mg/mg 10-20 [facility] No Panel InformationOrdered By: Dr. Mendoza on 07-17-2022 Estimated GFR (MDRD) Amer 117 mL/min >60 [facility] Comment on above: GFR Calc Estimated GFR (MDRD) Non-Af Amer 96 mL/min >60 [facility] Comment on above: Non- GFR Calc Serum or plasma calcium pretty urement (mass/volume)Ordered By: Dr. Mendoza on 07-17-2022 Calcium [Mass/Vol] 8.4 mg/dL 8.5-10.1 [facility] Serum or plasma creatinine m easurement (mass/volume)Ordered By: Dr. Mendoza on 07-17-2022 Creatinine [Mass/Vol] 0.84 mg/dL 0.70-1.30 [facility] Comment on above: The validity of the calculated GFR & GFRAA in patients over 70 years has not been determined. Clinical correlation is essential. Serum or plasma urea nitroge n measurement (mass/volume)Ordered By: Dr. Mendoza on 07-17-2022 Urea nitrogen [Mass/Vol] 17 mg/dL 7-18 [facility] Thin prep Papanicolaou smear with manual screeningOrdered By: Dr. Mendoza on 07-17-2022 Thin prep Papanicolaou smear with manual screening 5 5-15 [facility] Basophil percentageOrdered B y: Dr. Mendoza on 06-29-2022 Chloride [Moles/Vol] 113 mmol/L 98-107 [facility] Glucose [Mass/Vol] 106 mg/dL 74-106 [facility] Comment on above: Fasting Glucose resu lt from 100 to 125 mg/dL suggests IMPAIRED HOMEOSTASIS per A.D.A. criteria. Potassium [Moles/Vol] 2.8 mmol/L 3.5-5.1 [facility] Sodium [Moles/Vol] 146 mmol/L 136-145 [facility] Laboratory - Chemistry and C hemistry - challengeOrdered By: Dr. Mendoza on 06-29-2022 CO2 [Moles/Vol] 26.0 mmol/L 21.0-32.0 [facility] Urea nitrogen/Creatinine [Mass ratio] 18.7 mg/mg 10-20 [facility] No Panel InformationOrdered By: Dr. Mendoza on 06-29-2022 Estimated GFR (MDRD) Amer 122 mL/min >60 [facility] Comment on above: GFR Calc Estimated GFR (MDRD) Non-Af Amer 101 mL/min >60 [facility] Comment on above: Non- GFR Calc Serum or plasma calcium pretty urement (mass/volume)Ordered By: Dr. Mendoza on 06-29-2022 Calcium [Mass/Vol] 8.4 mg/dL 8.5-10.1 [facility] Serum or plasma creatinine m easurement (mass/volume)Ordered By: Dr. Mendoza on 06-29-2022 Creatinine [Mass/Vol] 0.80 mg/dL 0.70-1.30 [facility] Comment on above: The validity of the calculated GFR & GFRAA in patients over 70 years has not been determined. Clinical correlation is essential. Serum or plasma urea nitroge n measurement (mass/volume)Ordered By: Dr. Mendoza on 06-29-2022 Urea nitrogen [Mass/Vol] 15 mg/dL -18 [facility] Thin prep Papanicolaou smear with manual screeningOrdered By: Dr. Mendoza on 06-29-2022 Thin prep Papanicolaou smear with manual screening 7 -15 [facility] Basophil percentageOrdered B y: Dr. Mendoza on 05-08-2022 Bilirubin [Mass/Vol] 0.40 mg/dL 0.20-1.00 [facility] Comment on above: For patients on eltr ombopag therapy, use of Dimension [place] TBIL is not recommended. Chloride [Moles/Vol] 111 mmol/L 98-107 [facility] Glucose [Mass/Vol] 98 mg/dL 74-106 [facility] Potassium [Moles/Vol] 3.0 mmol/L 3.5-5.1 [facility] Protein [Mass/Vol] 6.7 g/dL 6.4-8.2 [facility] Sodium [Moles/Vol] 144 mmol/L 136-145 [facility] Laboratory - Chemistry and C hemistry - challengeOrdered By: Dr. Mendoza on 05-08-2022 ALP [Catalytic activity/Vol] 79 U/L 45-117 [facility] ALT [Catalytic activity/Vol] 38 U/L 16-61 [facility] CO2 [Moles/Vol] 24.0 mmol/L 21.0-32.0 [facility] Globulin (S) [Mass/Vol] 3.1 g/dL 2.2-4.2 [facility] Magnesium [Mass/Vol] 2.1 mg/dL 1.6-2.6 [facility] Urea nitrogen/Creatinine [Mass ratio] 18.3 mg/mg 10-20 [facility] No Panel InformationOrdered By: Dr. Mendoza on 05-08-2022 Estimated GFR (MDRD) Amer 130 mL/min >60 [facility] Comment on above: GFR Calc Estimated GFR (MDRD) Non-Af Amer 107 mL/min >60 [facility] Comment on above: Non- GFR Calc Serum or plasma albumin pretty urement (mass/volume)Ordered By: Dr. Mendoza on 05-08-2022 Albumin [Mass/Vol] 3.6 g/dL 3.2-5.0 [facility] Serum or plasma albumin/glob ulin mass ratioOrdered By: Dr. Mendoza on 05-08-2022 Albumin/Globulin [Mass ratio] 1.2 {ratio} 0.9-2.4 [facility] Serum or plasma calcium pretty urement (mass/volume)Ordered By: Dr. Mendoza on 05-08-2022 Calcium [Mass/Vol] 8.2 mg/dL 8.5-10.1 [facility] Serum or plasma creatinine m easurement (mass/volume)Ordered By: Dr. Mendoza on 05-08-2022 Creatinine [Mass/Vol] 0.76 mg/dL 0.70-1.30 [facility] Comment on above: The validity of the calculated GFR & GFRAA in patients over 70 years has not been determined. Clinical correlation is essential. Serum or plasma urea nitroge n measurement (mass/volume)Ordered By: Dr. Mendoza on 05-08-2022 Urea nitrogen [Mass/Vol] 14 mg/dL 7-18 [facility] Thin prep Papanicolaou smear with manual screeningOrdered By: Dr. Mendoza on 05-08-2022 Thin prep Papanicolaou smear with manual screening 28 U/L 15-37 [facility] Thin prep Papanicolaou smear with manual screening 9 5-15 [facility] Basophil percentageOrdered B y: Dr. Hernandez on 04-27-2022 Basophil percentage 3.1 mg/dL 2.5-4.9 [facility] Basophil percentageOrdered B y: Dr. Crum on 04-27-2022 Chloride [Moles/Vol] 118 mmol/L 98-107 [facility] Glucose [Mass/Vol] 107 mg/dL 74-106 [facility] Comment on above: Fasting Glucose resu lt from 100 to 125 mg/dL suggests IMPAIRED HOMEOSTASIS per A.D.A. criteria. Potassium [Moles/Vol] 2.6 mmol/L 3.5-5.1 [facility] Comment on above: Critical Result(s) C alled at: 08:15:44 04/27/2022 by: Fatou Mcgregor. Results read back by same. Sodium [Moles/Vol] 146 mmol/L 136-145 [facility] Laboratory - Chemistry and C hemistry - challengeOrdered By: Dr. Crum on 04-27-2022 CO2 [Moles/Vol] 21.0 mmol/L 21.0-32.0 [facility] Urea nitrogen/Creatinine [Mass ratio] 13.8 mg/mg 10-20 [facility] Laboratory - Chemistry and C hemistry - challengeOrdered By: Dr. Hernandez on 04-27-2022 Magnesium [Mass/Vol] 2.1 mg/dL 1.6-2.6 [facility] No Panel InformationOrdered By: Dr. Crum on 04-27-2022 Estimated Creatinine Clearance Calc 76.42 ml/min [facility] Estimated GFR (MDRD) Amer 123 mL/min >60 [facility] Comment on above: GFR Calc Estimated GFR (MDRD) Non-Af Amer 102 mL/min >60 [facility] Comment on above: Non- GFR Calc Serum or plasma calcium pretty urement (mass/volume)Ordered By: Dr. Crum on 04-27-2022 Calcium [Mass/Vol] 7.9 mg/dL 8.5-10.1 [facility] Serum or plasma creatinine m easurement (mass/volume)Ordered By: Dr. Crum on 04-27-2022 Creatinine [Mass/Vol] 0.80 mg/dL 0.70-1.30 [facility] Comment on above: The validity of the calculated GFR & GFRAA in patients over 70 years has not been determined. Clinical correlation is essential. Serum or plasma urea nitroge n measurement (mass/volume)Ordered By: Dr. Crum on 04-27-2022 Urea nitrogen [Mass/Vol] 11 mg/dL 7-18 [facility] Thin prep Papanicolaou smear with manual screeningOrdered By: Dr. Crum on 04-27-2022 Thin prep Papanicolaou smear with manual screening 7 5-15 [facility] Absolute lymphocyte countOrd ered By: Dr. Chan on 04-26-2022 Lymphocytes Auto (Unsp spec) [#/Vol] 0.73 10*3/uL 0.83-4.51 [facility] Basophil percentageOrdered B y: Dr. Chan on 04-26-2022 Basophils/100 WBC (Bld) 1.0 % 0-1 [facility] Eosinophils/100 WBC (Bld) 10.1 % 0-5 [facility] Neutrophils (Bld) [#/Vol] 1.7 10*3/uL 2.0-7.7 [facility] Neutrophils/100 WBC (Bld) 56.2 % 47-70 [facility] WBC (Bld) [#/Vol] 3.1 10*3/uL 4.4-11.0 [facility] Basophil percentageon 2022 Chloride [Moles/Vol] 114 mmol/L 98-107 [facility] Work Phone: Glucose [Mass/Vol] 167 mg/dL 74-106 [facility] Work Phone: Comment on above: Fasting Glucose resu lt greater than or equal to 126 mg/dL suggests DIABETES MELLITUS per A.D.A. criteria. Potassium [Moles/Vol] 2.4 mmol/L 3.5-5.1 [facility] Work Phone: Comment on above: Critical Result(s) C alled at: 11:41:36 04/26/2022 by: Fatou Hmephill to [facility]. Results read back by same. Sodium [Moles/Vol] 143 mmol/L 136-145 [facility] Work Phone: Basophil percentageOrdered B y: Dr. Crum on 04-26-2022 Cholesterol [Mass/Vol] 119 mg/dL <200 [facility] Comment on above: <200 mg/dL Desirable 200-240 mg/dL Borderline >240 mg/dL High Risk Triglyceride [Mass/Vol] 92 mg/dL <199 [facility] Comment on above: The drugs N-Acetylcy steine and Metamizole may falsely depress this assay.Serum Triglycerides Reference Interval Normal <150 mg/dL Borderline high 150 - 199 mg/dL High 200 - 499 mg/dL Very High > or = 500 mg/dL Blood erythrocytes count (nu mber/volume)Ordered By: Dr. Chan on 04-26-2022 RBC (Bld) [#/Vol] 3.72 10*6/uL 4.6-6.2 [facility] Blood hemoglobin measurement (mass/volume)Ordered By: Dr. Chan on 04-26-2022 Hemoglobin (Bld) [Mass/Vol] 12.6 g/dL 13.0-16.5 [facility] Blood lymphocytes/100 leukoc ytesOrdered By: Dr. Chan on 04-26-2022 Lymphocytes/100 WBC (Bld) 23.9 % 19-41 [facility] Blood monocytes/100 leukocyt esOrdered By: Dr. Chan on 04-26-2022 Monocytes/100 WBC (Bld) 8.8 % 0-10 [facility] Blood platelet mean volumeOr dered By: Dr. Chan on 04-26-2022 Platelet mean volume (Bld) [Entitic vol] 8.6 fL 6.2-12.0 [facility] Determination of erythrocyte mean corpuscular volume (MCV)Ordered By: Dr. Chan on 04-26-2022 MCV (RBC) [Entitic vol] 97.0 fL 80-94 [facility] Hematocrit Auto (Bld) [Volum e fraction]Ordered By: Dr. Chan on 04-26-2022 Hematocrit (Bld) [Volume fraction] 36.1 % 40-54 [facility] INR in Blood by Coagulation assayOrdered By: Dr. Chan on 04-26-2022 INR Coag (Bld) [Relative time] 1.1 {INR} [facility] Laboratory - Chemistry and C hemistry - challengeon 04-26-2022 CO2 [Moles/Vol] 25.0 mmol/L 21.0-32.0 [facility] Work Phone: Urea nitrogen/Creatinine [Mass ratio] 17.2 mg/mg 10-20 [facility] Work Phone: Laboratory - CoagulationOrde red By: Dr. Chan on 04-26-2022 aPTT Coag (Bld) [Time] 24.6 s 24.1-36.2 [facility] PT Coag (PPP) [Time] 13.9 s 11.7-14.9 [facility] Laboratory - Hematology and Cell countsOrdered By: Dr. Chan on 04-26-2022 Erythrocyte distribution width (RBC) [Entitic vol] 49.6 fL 35.1-43.9 [facility] Erythrocyte distribution width (RBC) [Ratio] 13.9 % 11.6-14.6 [facility] Immature granulocytes/100 WBC (Bld) 0.000 % 0.0-0.9 [facility] Comment on above: IG% - Immature Granu locytes (promyelocytes, myelocytes and metamyelocytes) > 1% indicates that a LEFT SHIFT is Present. MCH (RBC) [Entitic mass] 33.9 pg 27.0-32.0 [facility] Nucleated RBC/100 WBC (Bld) [Ratio] 0 % 0-5 [facility] MCHC Auto (RBC) [Mass/Vol]Or dered By: Dr. Chan on 04-26-2022 MCHC (RBC) [Mass/Vol] 34.9 g/dL 32-36 [facility] No Panel Informationon 04-26 Estimated Creatinine Clearance Calc 76.40 ml/min [facility] Work Phone: Estimated GFR (MDRD) Amer 112 mL/min >60 [facility] Work Phone: Comment on above: GFR Calc Estimated GFR (MDRD) Non-Af Amer 92 mL/min >60 [facility] Work Phone: Comment on above: Non- GFR Calc No Panel InformationOrdered By: Dr. Chan on 04-26-2022 Troponin I High Sensitivity 11 pg/mL 3.0-78.0 [facility] Comment on above: Please Note: [place] t Units and Gender Specific Reference Ranges. For more information see Policy Stat Procedure [place] High Sensitivity Troponin (TNIH) and attachments. Platelets bldOrdered By: Dr. Chan on 04-26-2022 Platelets (Bld) [#/Vol] 212 10*3/uL 150-450 [facility] Serum or plasma calcium pretty urement (mass/volume)on 04-26-2022 Calcium [Mass/Vol] 8.1 mg/dL 8.5-10.1 [facility] Work Phone: Serum or plasma cholesterol in HDL measurement (mass/volume)Ordered By: Dr. Crum on 04-26-2022 Cholesterol in HDL [Mass/Vol] 53 mg/dL >40 [facility] Comment on above: The drugs N-Acetylcy steine and Metamizole may falsely depress this assay. Reference Range HDL <40 mg/dL Low HDL Cholesterol HDL >or= 60 mg/dL High HDL Cholesterol Serum or plasma cholesterol in VLDL measurement (mass/volume)Ordered By: Dr. Crum on 04-26-2022 Cholesterol in VLDL [Mass/Vol] 18 mg/dL 5-40 [facility] Serum or plasma creatinine m easurement (mass/volume)on 04-26-2022 Creatinine [Mass/Vol] 0.87 mg/dL 0.70-1.30 [facility] Work Phone: Comment on above: The validity of the calculated GFR & GFRAA in patients over 70 years has not been determined. Clinical correlation is essential. Serum or plasma low density lipoprotein (LDL) cholesterol measurement (mass/volume)Ordered By: Dr. Crum on 04-26-2022 Cholesterol in LDL [Mass/Vol] 48 mg/dL 0-130 [facility] Serum or plasma urea nitroge n measurement (mass/volume)on 04-26-2022 Urea nitrogen [Mass/Vol] 15 mg/dL 7-18 [facility] Work Phone: Thin prep Papanicolaou smear with manual screeningon 04-26-2022 Thin prep Papanicolaou smear with manual screening 4 5-15 [facility] Work Phone: Basophil percentageon 2021 Chloride [Moles/Vol] 112 mmol/L 98-107 [facility] Work Phone: Glucose [Mass/Vol] 202 mg/dL 74-106 [facility] Work Phone: Comment on above: Glucose result great er than or equal to 200 mg/dLsuggests DIABETES MELLITUS per A.D.A. criteria. Potassium [Moles/Vol] 3.4 mmol/L 3.5-5.1 [facility] Work Phone: Sodium [Moles/Vol] 143 mmol/L 136-145 [facility] Work Phone: Laboratory - Chemistry and C hemistry - challengeon 10-05-2021 CO2 [Moles/Vol] 23.0 mmol/L 21.0-32.0 [facility] Work Phone: Urea nitrogen/Creatinine [Mass ratio] 15.6 mg/mg 10-20 [facility] Work Phone: No Panel Informationon 10-05 Estimated GFR (MDRD) Amer 117 mL/min >60 [facility] Work Phone: Comment on above: GFR Calc Estimated GFR (MDRD) Non-Af Amer 97 mL/min >60 [facility] Work Phone: Comment on above: Non- GFR Calc Serum or plasma calcium pretty urement (mass/volume)on 10-05-2021 Calcium [Mass/Vol] 8.2 mg/dL 8.5-10.1 [facility] Work Phone: Serum or plasma creatinine m easurement (mass/volume)on 10-05-2021 Creatinine [Mass/Vol] 0.84 mg/dL 0.70-1.30 [facility] Work Phone: Comment on above: The validity of the calculated GFR & GFRAA in patients over 70 years has not been determined. Clinical correlation is essential. Serum or plasma urea nitroge n measurement (mass/volume)on 10-05-2021 Urea nitrogen [Mass/Vol] 13 mg/dL 7-18 [facility] Work Phone: Thin prep Papanicolaou smear with manual screeningon 10-05-2021 Thin prep Papanicolaou smear with manual screening 8 5-15 [facility] Work Phone: Absolute lymphocyte counton 09-26-2021 Lymphocytes Auto (Unsp spec) [#/Vol] 0.76 10*3/uL 0.83-4.51 [facility] Work Phone: Basophil percentageon 2021 Basophils/100 WBC (Bld) 1.2 % 0-1 [facility] Work Phone: Bilirubin [Mass/Vol] 0.30 mg/dL 0.20-1.00 [facility] Work Phone: Comment on above: For patients on eltr ombopag therapy, use of Dimension [place] TBIL is not recommended. Chloride [Moles/Vol] 110 mmol/L 98-[address] [facility]: Eosinophils/100 WBC (Bld) 11.8 % 0-5 [facility] Work Phone: Glucose [Mass/Vol] 86 mg/dL 74-106 [facility] Work Phone: Neutrophils (Bld) [#/Vol] 1.7 10*3/uL 2.0-7.7 [facility] Work Phone: Neutrophils/100 WBC (Bld) 51.6 % 47-70 [facility] Work Phone: Potassium [Moles/Vol] 2.7 mmol/L 3.5-5.1 [facility] Work Phone: Comment on above: Critical Result(s) C alled at: 17:06:44 09/26/2021 by: Huber Hamilton to Dr Medina . Results read back by same. Protein [Mass/Vol] 6.5 g/dL 6.4-8.2 [facility] Work Phone: Sodium [Moles/Vol] 141 mmol/L 136-145 [facility] Work Phone: WBC (Bld) [#/Vol] 3.2 10*3/uL 4.4-11.0 [facility] Work Phone: Blood erythrocytes count (nu mber/volume)on 09-26-2021 RBC (Bld) [#/Vol] 3.69 10*6/uL 4.6-6.2 [facility] Work Phone: Blood hemoglobin measurement (mass/volume)on 09-26-2021 Hemoglobin (Bld) [Mass/Vol] 12.2 g/dL 13.0-16.5 [facility] Work Phone: Blood lymphocytes/100 leukoc yteson 09-26-2021 Lymphocytes/100 WBC (Bld) 23.6 % 19-41 [facility] Work Phone: Blood monocytes/100 leukocyt eson 09-26-2021 Monocytes/100 WBC (Bld) 11.5 % 0-10 [facility] Work Phone: Blood platelet mean volumeon 09-26-2021 Platelet mean volume (Bld) [Entitic vol] 8.8 fL 6.2-12.0 [facility] Work Phone: Determination of erythrocyte mean corpuscular volume (MCV)on 09-26-2021 MCV (RBC) [Entitic vol] 100.3 fL 80-94 [facility] Work Phone: Hematocrit Auto (Bld) [Volum e fraction]on 09-26-2021 Hematocrit (Bld) [Volume fraction] 37.0 % 40-54 [facility] Work Phone: Laboratory - Chemistry and C hemistry - challengeon 09-26-2021 Cobalamin (Vitamin B12) [Mass/Vol] 270 pg/mL 211-911 [facility] Work Phone: ALP [Catalytic activity/Vol] 83 U/L 45-117 [facility] Work Phone: ALT [Catalytic activity/Vol] 38 U/L 16-61 [facility] Work Phone: CO2 [Moles/Vol] 25.0 mmol/L 21.0-32.0 [facility] Work Phone: Globulin (S) [Mass/Vol] 3.3 g/dL 2.2-4.2 [facility] Work Phone: Urea nitrogen/Creatinine [Mass ratio] 18.4 mg/mg 10-20 [facility] Work Phone: Laboratory - Hematology and Cell countson 09-26-2021 Erythrocyte distribution width (RBC) [Entitic vol] 49.7 fL 35.1-43.9 [facility] Work Phone: Erythrocyte distribution width (RBC) [Ratio] 13.5 % 11.6-14.6 [facility] Work Phone: Immature granulocytes/100 WBC (Bld) 0.300 % 0.0-0.9 [facility] Work Phone: Comment on above: IG% - Immature Granu locytes (promyelocytes, myelocytes and metamyelocytes) > 1% indicates that a LEFT SHIFT is Present. MCH (RBC) [Entitic mass] 33.1 pg 27.0-32.0 [facility] Work Phone: Nucleated RBC/100 WBC (Bld) [Ratio] 0 % 0-5 [facility] Work Phone: MCHC Auto (RBC) [Mass/Vol]on 09-26-2021 MCHC (RBC) [Mass/Vol] 33.0 g/dL 32-36 [facility] Work Phone: No Panel Informationon 09-26 Estimated GFR (MDRD) Amer 130 mL/min >60 [facility] Work Phone: Comment on above: GFR Calc Estimated GFR (MDRD) Non-Af Amer 108 mL/min >60 [facility] Work Phone: Comment on above: Non- GFR Calc Prostate Specific Antigen Screen 0.73 ng/mL 0.00-4.00 [facility] Work Phone: Comment on above: This test was perfor med using the TPSA assay method for the[employer] chemistry system. Values obtained with differentassay methods cannot be used interchangably.When changing PSA assays in the course of monitoring apatient, additional sequential testing should be carriedout to confirm baseline values. Thyroid Stimulating Hormone (TSH) 3.51 uIU/mL 0.358-3.74 [facility] Work Phone: Vitamin D 25-Hydroxy 13.9 ng/mL [facility] Work Phone: Comment on above: Vitamin D 25(OH) Sta tus Range Deficiency <20 ng/mL (50nmol/L) Insufficiency 20 - 30 ng/mL (50 - 75 nmol/L) Sufficiency 30 - 100 ng/mL (75 - 250 nmol/L) Toxicity >100 ng/mL (>250 nmol/L) Platelets bldon 09-26-2021 Platelets (Bld) [#/Vol] 246 10*3/uL 150-450 [facility] Work Phone: Serum or plasma albumin pretty urement (mass/volume)on 09-26-2021 Albumin [Mass/Vol] 3.2 g/dL 3.2-5.0 [facility] Work Phone: Serum or plasma albumin/glob ulin mass ratioon 09-26-2021 Albumin/Globulin [Mass ratio] 1.0 {ratio} 0.9-2.4 [facility] Work Phone: Serum or plasma calcium pretty urement (mass/volume)on 09-26-2021 Calcium [Mass/Vol] 8.3 mg/dL 8.5-10.1 [facility] Work Phone: Serum or plasma creatinine m easurement (mass/volume)on 09-26-2021 Creatinine [Mass/Vol] 0.76 mg/dL 0.70-1.30 [facility] Work Phone: Comment on above: The validity of the calculated GFR & GFRAA in patients over 70 years has not been determined. Clinical correlation is essential. Serum or plasma urea nitroge n measurement (mass/volume)on 09-26-2021 Urea nitrogen [Mass/Vol] 14 mg/dL 7-18 [facility] Work Phone: Thin prep Papanicolaou smear with manual screeningon 09-26-2021 Thin prep Papanicolaou smear with manual screening 27 U/L 15-37 [facility] Work Phone: Thin prep Papanicolaou smear with manual screening 6 5-15 [facility] Work Phone: PROGRESSon 09-07-2019 PROGRESS HNO ID: [id number] Author: Sergey Ceron Service: General Surgery Author Type: Resident Type: Progress Notes Filed: 09/07/2019 12:22 PM Note Text: -- Attestation signed by Navneet Benavides at 09/07/2019 12:26 PM I personally saw and examined the patient. I reviewed the resident's note. I agree with the resident's assessment and plan except as noted below. Plan of care discussed with Patient and RN -- PROGRESS NOTE Elective Surgery Progress Note Elective General Surgery Service Pager: For questions or concerns Mon-Fri 6a-5p please page [phone]. After 5pm and on Weekends and Holidays, please page [phone] if in ICU or [phone] if on RNF. SERVICE DATE: 09/07/2019 SERVICE TIME: 12:21 PM SUBJECTIVE: Subjective Subjective: This is a 69 year old male w/ pancreatic mass s/p ERCP Pt feels well today. Pain better controled. Tolerating diet. Ambulating. Plan for discharge home. Bowel movement No Flatus Yes Diet DIET REGULAR Ambulating Yes Nausea No Emesis No Current Facility-Administered Medications Medication Dose Route Frequency - ibuprofen 600 mg tab(s) (MOTRIN) 600 mg ORAL TID - traMADol 100 mg tab(s) (ULTRAM) 100 mg ORAL q 6 H PRN - oxyCODONE IR 5 mg tab(s) (ROXICODONE) 5 mg ORAL q 4 H PRN - acetaminophen 975 mg tab(s) (TYLENOL) 975 mg ORAL q 6 H - diphenhydrAMINE 25 mg (BENADRYL) 25 mg ORAL q 6 H PRN - ondansetron (PF) 4 mg injection (ZOFRAN) 4 mg INTRAVENOUS PRN - benzocaine-menthol 1 Lozenge (CEPACOL) 1 Lozenge MUCOUS MEMBRANE (TOPICAL MOUTH AND THROAT) q 2 H PRN - melatonin 3 mg tab(s) 3 mg ORAL DAILY (8 PM) - morphine 2 mg injection 2 mg INTRAVENOUS q 2 H PRN - NaCl 0.9% 3-5 mL 3-5 mL INTRAVENOUS q 12 H - ondansetron 4 mg tab(s) (ZOFRAN) 4 mg ORAL q 6 H PRN Or - ondansetron (PF) 4 mg injection (ZOFRAN) 4 mg INTRAVENOUS q 6 H PRN - hydrOXYzine HCl 10 mg tab(s) (ATARAX) 10 mg ORAL q 6 H PRN - iv contrast (radiology procedure) INTRAVENOUS DIRECTED PRN OBJECTIVE: Objective PHYSICAL EXAM: VITAL SIGNS BP 135/99 Pulse 90 Temp (Src) 98.2 (Oral) Resp 18 Ht 5' 8 (1.73m) Wt 159 lb (72.1kg) SpO2 98% BMI 24.18 kg/(m2). O2 Therapy: Room Air Temp (24hrs), Av.7 ?C (98 ?F), Min:36.5 ?C (97.7 ?F), Max:36.8 ?C (98.2 ?F) Date 09/06/19 07 - 09/07/19 0659 09/07/19 07 - 09/08/19 0659 Shift 3301-2041 3744-3163 8592-0479 24 Hour Total 6533-9879 7054-0462 5434-0051 24 Hour Total INTAKE PO 340 240 240 820 360 360 PO 340 240 240 820 360 360 Shift Total 340 240 240 820 360 360 OUTPUT Urine Urine Not Saved. 2 x 1 x 1 x 4 x 1 x 1 x Shift Total Weight (kg) 72.1 72.1 72.1 72.1 72.1 72.1 72.1 72.1 GENERAL: Alert, no distress, cooperative SKIN: Skin, texture, turgor normal. Still jaundiced, No rashes or lesions. LUNGS: Unlabored breathing on O2 Therapy: Room Air on Liters: 3 sating at SpO2: 98 % CARDIAC: rate and rhythm as above, ABDOMEN: Benign, Soft, non-tender, No masses, hepatosplenomegaly and No lymphadenopathy EXTREMITIES: ROM of all joint grossly normal: strength grossly normal bilaterally. No deformities noted. WOUND: N/A DATA: Diagnostic tests reviewed for today's visit: No results for input(s): BODSITE, CTYPE, PH, PCO2, PO2, BE, HCO3, CO2CT, O2HB, COHB, MHGB, TEMP, PHTC, PCO2T, PO2T, O2AD in the last 72 hours. Recent Labs 09/05/19 0500 ALB 3.1* AST 97* ALT 168* ALKPHOS 438* TBILI 3.7* ASSESSMENT AND PLAN: Active Hospital Problems Diagnosis Date Noted - Pancreatic mass 09/02/2019 Assessment/Plan This is a 69 year old male admitted for CT A/P concerning for mass within the pancreatic head, dilation of bile ducts and diffuse atrophy of pancreas.?EUS 09/02: Mass in head of pancreas, Dilated PD and?CBD. ? - regular diet - abd pain improving - cytology pending - lvx - Plan discharge 09/06 SIGNATURE: Sergey Ceron MD PATIENT NAME: Moustapha Vasquez DATE: September 07, 2019 TIME: 12:21 PM PAGER: [phone] Plan of care discussed with: RN. Normal [facility] Lipase Bloodon 09-06-2019 Lipase Blood 534 U/L High 16-61 [facility] Comment on above: Performed By: #### P T #### [facility] [address] [address] PROGRESSon 09-06-2019 PROGRESS HNO ID: [id number] Author: Julio Hancock MD Service: General Surgery Author Type: Resident Type: Progress Notes Filed: 09/06/2019 6:52 AM Note Text: -- Attestation signed by Navneet Benavides at 09/07/2019 11:46 AM I personally saw and examined the patient. I reviewed the resident's note. I agree with the resident's assessment and plan except as noted below. Plan of care discussed with Patient and RN Delayed entry - I personally saw/examined the patient on 09/06/2019 -- PROGRESS NOTE Elective Surgery Progress Note Elective General Surgery Service Pager: For questions or concerns Mon-Sun 6a-5p please page [phone]. After 5pm and on Weekends and Holidays, please page [phone] if in ICU or [phone] if on RNF. SERVICE DATE: 09/06/2019 SERVICE TIME: 6:50 AM SUBJECTIVE: Pt complaining of intermittent pain in epigastric area. Some nausea, no vomiting, doesn't have much of an appetite. Not passing much gas or stool but states he hasn't been eating much. Current Facility-Administered Medications Medication Dose Route Frequency - oxyCODONE IR 5-10 mg tab(s) (ROXICODONE) 5-10 mg ORAL q 6 H PRN - diphenhydrAMINE 25 mg (BENADRYL) 25 mg ORAL q 6 H PRN - lactated ringers infusion 125 mL/hr INTRAVENOUS CONTINUOUS - ondansetron (PF) 4 mg injection (ZOFRAN) 4 mg INTRAVENOUS PRN - benzocaine-menthol 1 Lozenge (CEPACOL) 1 Lozenge MUCOUS MEMBRANE (TOPICAL MOUTH AND THROAT) q 2 H PRN - melatonin 3 mg tab(s) 3 mg ORAL DAILY (8 PM) - acetaminophen 325 mg tab(s) (TYLENOL) 325 mg ORAL q 4 H PRN - morphine 2 mg injection 2 mg INTRAVENOUS q 2 H PRN - NaCl 0.9% 3-5 mL 3-5 mL INTRAVENOUS q 12 H - ondansetron 4 mg tab(s) (ZOFRAN) 4 mg ORAL q 6 H PRN Or - ondansetron (PF) 4 mg injection (ZOFRAN) 4 mg INTRAVENOUS q 6 H PRN - hydrOXYzine HCl 10 mg tab(s) (ATARAX) 10 mg ORAL q 6 H PRN - iv contrast (radiology procedure) INTRAVENOUS DIRECTED PRN - dextrose 5% in LR infusion (D5-LR) 75 mL/hr INTRAVENOUS CONTINUOUS OBJECTIVE: Objective PHYSICAL EXAM: VITAL SIGNS BP 146/79 Pulse 71 Temp (Src) 98.1 (Oral) Resp 18 Ht 5' 8 (1.73m) Wt 159 lb (72.1kg) SpO2 98% BMI 24.18 kg/(m2). O2 Therapy: Room Air Temp (24hrs), Av.7 ?C (98.1 ?F), Min:36.4 ?C (97.5 ?F), Max:36.9 ?C (98.4 ?F) Date 09/05/19 07 - 09/06/19 0659 09/06/19 07 - 09/07/19 0659 Shift 1875-1994 8375-5206 1546-9430 24 Hour Total 5374-4465 8614-3525 0343-1062 24 Hour Total INTAKE PO 450 120 240 810 PO 450 120 240 810 IV 1000 1250 2250 Volume (mL) (lactated ringers infusion) 1000 1250 2250 Shift Total 2650 929 2776 3060 OUTPUT Urine 600 600 Void (ml) 600 600 Urine Not Saved. 2 x 1 x 1 x 4 x Shift Total 600 600 Weight (kg) 72.1 72.1 72.1 72.1 72.1 72.1 72.1 72.1 GENERAL: Alert, no distress, cooperative SKIN: jaundiced LUNGS: Unlabored breathing on O2 Therapy: Room Air on Liters: 3 sating at SpO2: 98 % CARDIAC: rate and rhythm as above, ABDOMEN:soft, nonTTP DATA: Diagnostic tests reviewed for today's visit: No results for input(s): BODSITE, CTYPE, PH, PCO2, PO2, BE, HCO3, CO2CT, O2HB, COHB, MHGB, TEMP, PHTC, PCO2T, PO2T, O2AD in the last 72 hours. Recent Labs 09/05/19 0500 09/03/19 0742 CREAT -- 0.65* BUN -- 5* NA -- 138 K -- 3.3* CHLOR -- 102 CO2 -- 25 ANION -- 11 GLUC -- 122* CA -- 8.7 ALB 3.1* 3.3* AST 97* 178* ALT 168* 228* ALKPHOS 438* 495* TBILI 3.7* 5.9* ASSESSMENT AND PLAN: Active Hospital Problems Diagnosis Date Noted - Pancreatic mass 09/02/2019 Assessment/Plan 69 year old male admitted for CT A/P concerning for mass within the pancreatic head, dilation of bile ducts and diffuse atrophy of pancreas.?EUS 09/02: Mass in head of pancreas, Dilated PD and?CBD. - regular diet - abd pain: low suspicion of pancreatitis, but will check blood lipase - cytology pending - lvx - likely dc today, will discuss Will d/w Dr. Benavides Elective General Surgery Service Pager: For questions or concerns Mon-Sun 6a-5p please page [phone]. After 5pm and on Weekends and Holidays, please page [phone] if in ICU or [phone] if on RNF. SIGNATURE: Julio Hancock MD PATIENT NAME: Moustapha Vasquez DATE: September 06, 2019 TIME: 6:50 AM PAGER: [facility] CASE MANAGEMon 09-05-2019 CASE MANAGEM HNO ID: [id number] Author: Tammy Barrios Service: Care Management Author Type: ? Type: Care Mgt Progress Note Filed: 09/05/2019 11:03 AM Note Text: CARE MANAGEMENT PROGRESS NOTE SERVICE DATE: 09/05/2019 SERVICE TIME: 0900 LOS: 3 days IMM Follow Up Copy Given: Yes(verbal reminder) Copy given to:: Patient Method: By Phone(covid protocol) SIGNATURE: Tammy Barrios PATIENT NAME: Moustapha Vasquez DATE: September 05, 2019 TIME: 11:02 AM PAGER/CONTACT #: [phone] [facility] CONSULT PROGon 09-05-2019 CONSULT PROG HNO ID: [id number] Author: Nabila Olivas (Pa) Service: Gastroenterology Author Type: Physician Bag Sewer Type: Consult Progress Note Filed: 09/05/2019 3:11 PM Note Text: GI CONSULT PROGRESS NOTE SERVICE DATE: 09/05/2019 SERVICE TIME: 3:04 PM CONSULTING SERVICE: Gastroenterology Subjective INTERVAL HISTORY: GI following for pancreatic head mass. S/p EUS 09/02, ERCP 09/03. Patient feeling okay today. Having some abdominal pain but well controlled w/ pain meds. Tolerating PO diet without N/V. MEDICATIONS: Current Facility-Administered Medications Medication Dose Route Frequency - NaCl 0.9% 3-5 mL 3-5 mL INTRAVENOUS q 12 H - ondansetron 4 mg tab(s) (ZOFRAN) 4 mg ORAL q 6 H PRN Or - ondansetron (PF) 4 mg injection (ZOFRAN) 4 mg INTRAVENOUS q 6 H PRN - hydrOXYzine HCl 10 mg tab(s) (ATARAX) 10 mg ORAL q 6 H PRN - iv contrast (radiology procedure) INTRAVENOUS DIRECTED PRN - dextrose 5% in LR infusion (D5-LR) 75 mL/hr INTRAVENOUS CONTINUOUS - lactated ringers infusion 125 mL/hr INTRAVENOUS CONTINUOUS - ondansetron (PF) 4 mg injection (ZOFRAN) 4 mg INTRAVENOUS PRN - benzocaine-menthol 1 Lozenge (CEPACOL) 1 Lozenge MUCOUS MEMBRANE (TOPICAL MOUTH AND THROAT) q 2 H PRN - melatonin 3 mg tab(s) 3 mg ORAL DAILY (8 PM) - acetaminophen 325 mg tab(s) (TYLENOL) 325 mg ORAL q 4 H PRN - morphine 2 mg injection 2 mg INTRAVENOUS q 2 H PRN - diphenhydrAMINE 25 mg (BENADRYL) 25 mg ORAL q 6 H PRN Objective PHYSICAL EXAM: VITALS:BP 151/85 Pulse 91 Temp 36.8 ?C (98.2 ?F) (Tympanic) Resp 18 Ht 172.7 cm (5' 8) Wt 72.1 kg (159 lb) SpO2 98% BMI 24.18 kg/m? ABDOMEN: PE deferred to decrease risk of spreading COVID 19 DATA: Diagnostic tests reviewed for today's visit: Most recent labs and imaging results. CBC, Coags, BMP, Mg, Phos Recent Labs 09/03/19 0742 NA 138 K 3.3* CHLOR 102 CO2 25 BUN 5* CREAT 0.65* GLUC 122* CA 8.7 CSF AND Dilantin Liver Function, Amylase, AND Lipase Recent Labs 09/05/19 0500 09/03/19 0742 TPROT 6.0* 6.2* ALB 3.1* 3.3* ALT 168* 228* AST 97* 178* ALKPHOS 438* 495* TBILI 3.7* 5.9* Cardiac Enzymes ABGs Impression/Recommendations 1) Pancreatic head mass: - s/p EUS 09/02 w/ biopsy, path pending - s/p ERCP 09/03 w/ fully covered metal stent placement - Down trending t bili and transaminases - pain and nausea management prn - Surgery following, planning for whipple September [address] Jonathan Orozco: likely DC today or early in AM - GI will sign off D/w Dr. Acevedo. SIGNATURE: Nabila Olivas PA-C PATIENT NAME: Moustapha Vasquez DATE: September 05, 2019 TIME: 3:04 PM PAGER/CONTACT #: [phone] [facility] Hepatic Function Panelon Albumin [Mass/Vol] 3.1 g/dL Low 3.9-4.9 [facility] Comment on above: Performed By: #### H FP #### [facility] [address] [place], [place] [address] ALP [Catalytic activity/Vol] 438 U/L High 38-113 [facility] Comment on above: Performed By: #### H FP #### [address] [address] ALT [Catalytic activity/Vol] 168 U/L High 10-54 [facility] Comment on above: Performed By: #### H FP #### [address] [address] AST [Catalytic activity/Vol] 97 U/L High 14-40 [facility] Comment on above: Performed By: #### H FP #### [address] [address] Bilirubin [Mass/Vol] 3.7 mg/dL High 0.2-1.3 [facility] Comment on above: Performed By: #### H FP #### [address] [address] Bilirubin [Mass/Vol] 2.3 mg/dL High 0.0-0.2 [facility] Comment on above: Performed By: #### H FP #### [address] [address] Protein [Mass/Vol] 6.0 g/dL Low 6.3-8.0 [facility] Comment on above: Performed By: #### H FP #### [address] [address] PROGRESSon 09-05-2019 PROGRESS HNO ID: [id number] Author: German Cruz DO Service: General Surgery Author Type: Resident Type: Progress Notes Filed: 09/05/2019 8:13 AM Note Text: -- Attestation signed by Margarita Castillo at 09/19/2019 2:01 PM (Updated) Attending Note I personally saw and examined the patient. I reviewed the resident's note. I agree with the resident's assessment and plan with the following revisions and/or additions: Pt with some pain now. DC tomorrow. Signature: Margarita Castillo MD Date: 09/05/2019 Time: 5:29 PM EUS shows pancreatic adenocarcinoma. Will plan on surgical resection in a few weeks -- Elective General Surgery Progress Note SERVICE DATE: 09/05/2019 Elective General Surgery Service Pager: For questions or concerns Mon-Fri 6a-5p please page [phone]. After 5pm and on Weekends and Holidays, please page [phone] if in ICU or [phone] if on RNF. SUBJECTIVE: NAEON. Having some pain s/p ERCP. Tolerable pain. Plan for whipple on the 21 of September. Tolerating diet DIET LIQUID OBJECTIVE: Vitals: Temp (24hrs), Av.6 ?C (97.8 ?F), Min:36 ?C (96.8 ?F), Max:36.9 ?C (98.4 ?F) BP 112/67 Pulse 88 Temp 36.6 ?C (97.9 ?F) (Oral) Resp 16 Ht 172.7 cm (5' 8) Wt 72.1 kg (159 lb) SpO2 99% BMI 24.18 kg/m? O2 Therapy: Room Air IANDO: Date 09/04/19 07 - 09/05/19 0659 09/05/19699 - 09/06/19 0659 Shift 8797-2842 7335-5795 9065-5679 24 Hour Total 3182-0077 3175-8290 2936-6677 24 Hour Total INTAKE PO 120 360 480 PO 120 360 480 IV 1400 1250 2650 OR Crystalloid intake (mL) 800 800 Volume (mL) (lactated ringers infusion) 1250 1250 Volume (mL) (lactated ringers infusion) 200 200 Volume (mL) (lactated ringers infusion) 400 400 Shift Total 1098 733 8371 3130 OUTPUT Urine 507 250 4902 Void (ml) 732 663 0748 # of BMs Number of BMs 1 x 1 x Shift Total 280 630 7715 Weight (kg) 72.1 72.1 72.1 72.1 72.1 72.1 72.1 72.1 MEDICATIONS Current Facility-Administered Medications Medication Dose Route Frequency - diphenhydrAMINE 25 mg (BENADRYL) 25 mg ORAL q 6 H PRN - lactated ringers infusion 125 mL/hr INTRAVENOUS CONTINUOUS - ondansetron (PF) 4 mg injection (ZOFRAN) 4 mg INTRAVENOUS PRN - benzocaine-menthol 1 Lozenge (CEPACOL) 1 Lozenge MUCOUS MEMBRANE (TOPICAL MOUTH AND THROAT) q 2 H PRN - melatonin 3 mg tab(s) 3 mg ORAL DAILY (8 PM) - acetaminophen 325 mg tab(s) (TYLENOL) 325 mg ORAL q 4 H PRN - morphine 2 mg injection 2 mg INTRAVENOUS q 2 H PRN - NaCl 0.9% 3-5 mL 3-5 mL INTRAVENOUS q 12 H - ondansetron 4 mg tab(s) (ZOFRAN) 4 mg ORAL q 6 H PRN Or - ondansetron (PF) 4 mg injection (ZOFRAN) 4 mg INTRAVENOUS q 6 H PRN - hydrOXYzine HCl 10 mg tab(s) (ATARAX) 10 mg ORAL q 6 H PRN - iv contrast (radiology procedure) INTRAVENOUS DIRECTED PRN - dextrose 5% in LR infusion (D5-LR) 75 mL/hr INTRAVENOUS CONTINUOUS Labs: Recent Labs 09/05/19 0500 09/03/19 0742 09/02/19 1400 NA -- 138 141 K -- 3.3* 3.8 CHLOR -- 102 102 CO2 -- 25 27 BUN -- 5* 8* CREAT -- 0.65* 0.69* GLUC -- 122* 135* ANION -- 11 12 CA -- 8.7 8.9 ALB 3.1* 3.3* 3.5* AST 97* 178* 161* ALT 168* 228* 230* ALKPHOS 438* 495* 518* TBILI 3.7* 5.9* 5.6* WBC -- -- 5.81 HB -- -- 12.7* HCT -- -- 37.5* PLT -- -- 360 INR -- -- 1.32* Exam: GENERAL: resting comfortably, in no acute distress HEENT: normocephalic, atraumatic, EOMI NECK: trachea midline, no JVD LUNGS: Unlabored breathing, equal chest rise bilaterally CARDIAC: Regular rate and rhythm as above ABDOMEN: Soft, mild tenderness in epigastric region, non-distended EXTREMITIES: COY, No deformities SKIN: Skin color - jaundice, texture, turgor normal NEURO: AANDOx3, CN II-XII grossly intact PSYCH: normal mood and affect No change from 09/03 ASSESSMENT AND PLAN: Active Hospital Problems Diagnosis Date Noted - Pancreatic mass 09/02/2019 69 year old male admitted for CT A/P concerning for mass within the pancreatic head, dilation of bile ducts and diffuse atrophy of pancreas. EUS 09/02: Mass in head of pancreas, Dilated PD and CBD. - Diet: REG -- Pain and nausea control - EUS cyto pending - PRN atarax - Trend LFTs - downtrending BILI - DVT PPx: LVX - Encourage ambulation, IS - dispo planning - likely DC today Staff Surgeon: Dr. Castillo SIGNATURE: German Cruz DO PATIENT NAME: Moustapha Vasquez DATE: September 05, 2019 TIME: 8:13 AM Pager: see below Elective General Surgery Service Pager: For questions or concerns Mon-Fri 6a-5p please page [phone]. After 5pm and on Weekends and Holidays, please page [phone]. Normal [facility] ANES Sarah 09-04-2019 ANES POST HNO ID: [id number] Author: Arnol Kuo Service: Anesthesiology Author Type: Physician Type: Anesthesia PostOp Filed: 09/04/2019 4:53 PM Note Text: POST ANESTHESIA EVALUATION NOTE SERVICE DATE: 09/04/2019 SERVICE TIME: 4:53 PM : 1950 Vitals: 09/04/19 1117 09/04/19 1300 09/04/19 1445 09/04/19 1553 Temp: 36.6 ?C (97.9 ?F) 36 ?C (96.8 ?F) 36.9 ?C (98.4 ?F) 36.3 ?C (97.3 ?F) 09/04/19 1415 09/04/19 1430 09/04/19 1445 09/04/19 1553 BP: 171/92 173/95 171/90 163/89 09/04/19 1415 09/04/19 1430 09/04/19 1445 09/04/19 1553 Pulse: 65 67 66 61 09/04/19 1415 09/04/19 1430 09/04/19 1445 09/04/19 1553 Resp: 16 12 15 16 09/04/19 1415 09/04/19 1430 09/04/19 1445 09/04/19 1553 SpO2: 100% 100% 100% 99% Validated Vital Signs: Yes POST ANES STATUS: No apparent anesthetic complications. The patient is appropriately hydrated with stable respiratory and cardiovascular status. Patient has safe and adequate airway control. The patient has appropriate pain relief and no significant post operative nausea or vomiting. The patient has achieved baseline mental status. Intra-Operative Events: No Significant Anesthesia Events Further assessment by Anesthesia Service: None Other Remarks: SIGNATURE: Arnol Kuo MD PATIENT NAME: Moustapha Vasquez DATE: September 04, 2019 TIME: 4:52 PM PAGER/CONTACT #: [facility] ANES PREOPon 09-04-2019 ANES PREOP HNO ID: [id number] Author: Cecil Walter Service: Anesthesiology Author Type: Physician Type: Anesthesia PreOp Filed: 09/04/2019 11:08 AM Note Text: ANESTHESIOLOGY DAY OF SURGERY NOTE SERVICE DATE: 09/04/2019 SERVICE TIME: 1100 : 1950 Procedure(s) (LRB): ERCP W/ BRUSHING (N/A) Surgeon(s): Pily Acevedo Estimated body mass index is 24.18 kg/m? as calculated from the following: Height as of this encounter: 172.7 cm (5' 8). Weight as of this encounter: 72.1 kg (159 lb). Most recent hematocrit and potassium results: Hematocrit 37.5 09/02/2019 Potassium 3.3 09/03/2019 ANES DOS/PREOP NOTE: Vitals: 09/03/19 1437 09/03/19 1906 09/03/19 2216 09/04/19 0739 BP: 151/82 149/91 152/91 134/76 Pulse: 65 91 89 77 Resp: 18 18 18 Temp: 36.4 ?C (97.5 ?F) 36.6 ?C (97.9 ?F) 36.4 ?C (97.5 ?F) 36.8 ?C (98.2 ?F) TempSrc: Oral Oral Oral Oral SpO2: 99% 99% 98% 98% Weight: Height: ACTIVE PROBLEM LIST Closed Dislocation of Elbow Laxity of Ligament Pain in Joint, Upper Arm Follow-Up Examination Following Surgery CHOLECYSTITIS SEE ALSO GALLBLADDER ACUTE WITH CALCULUS( Without obstruction) Pancreatic Mass PAST MEDICAL HISTORY Diagnosis Date - Acute cholecystitis PAST SURGICAL HISTORY Procedure Laterality Date - LAP CHOLECYSTECT/CHOLANGIOGRAP 02-10-08 - UPPER ARM/ELBOW SURGERY UNLISTED Left pin No family history on file. Social History: Social History Tobacco Use - Smoking status: Never Smoker - Smokeless tobacco: Never Used Substance Use Topics - Alcohol use: Not Currently - Drug use: Never No current facility-administered medications on file prior to encounter. No current outpatient medications on file prior to encounter. Current Facility-Administered Medications Medication Dose Route Frequency Provider Last Rate Last Dose - [MAR Hold due to Transfer] diphenhydrAMINE 25 mg (BENADRYL) 25 mg ORAL q 6 H PRN Sergey Ceron - [MAR Hold due to Transfer] lactated ringers infusion 125 mL/hr INTRAVENOUS CONTINUOUS Cecil Jose Angel 125 mL/hr at 09/04/19 0636 125 mL/hr at 09/04/19 0636 - [MAR Hold due to Transfer] ondansetron (PF) 4 mg injection (ZOFRAN) 4 mg INTRAVENOUS PRN Cecil Jose Angel - [MAR Hold due to Transfer] benzocaine-menthol 1 Lozenge (CEPACOL) 1 Lozenge MUCOUS MEMBRANE (TOPICAL MOUTH AND THROAT) q 2 H PRN Sergey Waltoneb - [MAR Hold due to Transfer] melatonin 3 mg tab(s) 3 mg ORAL DAILY (8 PM) German (Res) Anthony, DO 3 mg at 09/03/192054 - [MAR Hold due to Transfer] acetaminophen 325 mg tab(s) (TYLENOL) 325 mg ORAL q 4 H PRN German (Res) Anthony, DO - [MAR Hold due to Transfer] morphine 2 mg injection 2 mg INTRAVENOUS q 2 H PRN German (Res) Anthony, DO 2 mg at 09/03/192111 - [MAR Hold due to Transfer] NaCl 0.9% 3-5 mL 3-5 mL INTRAVENOUS q 12 H Aijaz Kristina 3 mL at 09/04/19 0807 - [MAR Hold due to Transfer] ondansetron 4 mg tab(s) (ZOFRAN) 4 mg ORAL q 6 H PRN Aijaz Kristina Or - [MAR Hold due to Transfer] ondansetron (PF) 4 mg injection (ZOFRAN) 4 mg INTRAVENOUS q 6 H PRN Aijaz Kristina 4 mg at 09/03/19 184 - [MAR Hold due to Transfer] hydrOXYzine HCl 10 mg tab(s) (ATARAX) 10 mg ORAL q 6 H PRN Aijaz Kristina - [MAR Hold due to Transfer] iv contrast (radiology procedure) INTRAVENOUS DIRECTED PRN Aijaz Kristina - [MAR Hold due to Transfer] dextrose 5% in LR infusion (D5-LR) 75 mL/hr INTRAVENOUS CONTINUOUS Aijaz Kristina 75 mL/hr at 09/02/19 2100 75 mL/hr at 09/02/192099 Allergies: ALLERGIES No Known Allergies DOS EXAM: Adequate NPO status: Yes Anesthetic risks, benefits, alternatives, personnel and consent discussed: Yes Patient agrees to proceed: Yes Previous Anesthesia: No history of adverse event. Airway Assessment: MP 2; Neck ROM: Full ROM without neurologic symptoms; Airway Evaluation: No significant abnormalities Symptoms of Sleep Apnea: None Dentition: Teeth intact Additional Physical Exam: Lungs: Patient health status unchanged since recent history and physical. See history and physical for exam findings. Cardiac: Patient health status unchanged since recent history and physical. See history and physical for exam findings. Additional Pertinent Findings: N/A Blood Products: Not anticipated for this procedure. Anesthetic Plan: General, Standard ASA Monitors Pain Management Plan: Parenteral or Oral ASA Class: 3 Other Medical Problems: None Chronic Beta Thierno medication administered within 24 hours: N/A I have interviewed and examined the patient. I have reviewed the medical record and/or the pre-anesthesia evaluation, pertinent labs, and test results. Significant changes in the patient's condition since the History and Physical, not otherwise documented in primary service progress notes: No This contains updated information obtained within 48 hours of Surgery/Procedure. SIGNATURE: Cecil Walter MD PATIENT NAME: Moustapha Vasquez DATE: September 04, 2019 TIME: 10:57 AM CSN: [id number] [facility] CASE MANAGEMon 09-04-2019 CASE MANAGEM HNO ID: [id number] Author: Corie Douglas ([place]) Service: ? Author Type: Truck Trailer Mechanic Type: Care Mgt Progress Note Filed: 09/04/2019 10:40 AM Note Text: CARE MANAGEMENT PROGRESS NOTE SERVICE DATE: 09/04/2019 SERVICE TIME: 10:32 AM LOS: 2 days PHQ-9 PATIENT HEALTH QUESTIONNAIRE (PHQ-9) 1. Over the last 2 weeks, how often have you been bothered by any of the following problems? A. Little interest or pleasure in doing things: More than Half the Days (2) B. Feeling down, depressed, or hopeless: Several Days (1) C. Trouble falling asleep, staying asleep, or sleeping too much: Nearly Every Day (3) D. Feeling tired or having little energy: Nearly Every Day (3) E. Poor appetite or overeating: Nearly Every Day (3) F. Feeling bad about yourself, feeling that you are a failure, or feeling that you have let yourself or your family down: None at All (0) G. Trouble concentrating on things such as reading the newspaper or watching television: None at All (0) H. Moving or speaking so slowly that other people could have noticed. Or being so fidgety or restless that you have been moving around a lot more than usual: None at All (0) I. Thoughts that you would be better off or that you want to hurt yourself in some way: None at All (0) 2. If you checked off any problem on this questionnaire so far, how difficult have these problems made it for you to do your work, take care of things at home, or get along with other people: Very difficult TOTAL: 12 Score Depression Severity 1-4 Minimal Depression 5-9 Mild Depression 10-14 Moderate Depression 15-19 Moderately Severe Depression 20-27 Severe Depression Pt consulted for depression screen due to recent life stressors. Pt was tearful during initial assessment and also during this SW's assessment. Provided emotional support. Pt reported separation from and physical health concerns which have impacted his overall functioning and mental health. Pt reports he believes he has been grieving and has been seeking support from his neighbor who runs a counseling practice. Pt feels he has strong support at this time from son and neighbor. Pt denied any mental health resources at this time. Provided education on depression symptoms and encouraged seeking support. SIGNATURE: MARA Camacho PATIENT NAME: Moustapha Vasquez DATE: September 04, 2019 TIME: 10:32 AM PAGER/CONTACT #: [phone] [facility] CASE MANAGEM HNO ID: [id number] Author: Sosa MillerRn) YOEL Jean Service: Care Management Author Type: Registered Nurse Type: Care Mgt Progress Note Filed: 09/04/2019 9:17 AM Note Text: CARE MANAGEMENT PROGRESS NOTE SERVICE DATE: 09/04/2019 SERVICE TIME: 9:15 AM LOS: 2 days Needs Prior to Discharge: To Be Determined;Pharmacy Bedside Delivery Chart reviewed. Patient independent at home alone prior to admission. Patient hopeful to return home at discharge. Plan for ERCP today with GI. Will continue to follow clinical course for DC planning needs. SIGNATURE: Sosa Jean RN PATIENT NAME: Moustapha Vasquez DATE: September 04, 2019 TIME: 9:15 AM PAGER/CONTACT #: [phone] [facility] NURSING PROGon 09-04-2019 NURSING PROG HNO ID: [id number] Author: Elijah MillerRn) YOEL Willingham Service: ? Author Type: Registered Nurse Type: Nursing Progress Note Filed: 09/04/2019 2:28 PM Note Text: Dr Acevedo in at bedside talking to pt [facility] OPERATIVE NOon 09-04-2019 OPERATIVE NO HNO ID: [id number] Author: Pily Acevedo Service: Gastroenterology Author Type: Physician Type: Operative Report Filed: 09/04/2019 1:02 PM Note Text: OPERATIVE/PROCEDURE REPORT LOG ID: [id number] Surgery/Procedure Date: 09/04/2019 Incision/Procedure Start Time: 12:05 PM Incision Close/Procedure End Time: Surgeon(s)/Proceduralist(s ) and Bag Sewer(s): Surgeon(s) and Role: * Pily Acevedo - Primary No Additional Staff Procedure(s): Endoscopic Retrograde Cholangiopancreatography (ERCP) with sphincterotomy, brush cytology and biliary metal stenting Anesthesia: General Brief History: 69/M, admitted with jaundice with MRI evidence of blocked CBD with possible mass in head of pancreas Procedure Details: The patient was placed in the prone position on the fluoroscopy table. A bite block was placed and medications administered as above. The Olympus side-viewing duodenoscope was introduced into the oropharynx and we intubated the esophagus with ease. We proceeded down to the second part of the duodenum. The ampulla was visualized and appeared normal with no evidence of papillitis or trauma. Using Dreamtome, we tried to cannulate the CBD but the guidewire would pass into PD a few times. Therefore, we placed a 5 F x 7 cm plastic stent; however, it fell out. We were later able to obtain access to the common bile duct (CBD) using a short-wire Dreamtome and wire-guided cannulation. Contrast injection confirmed placement fluoroscopically. I personally interpreted all fluoroscopy images. Cholangiogram revealed- abnormal, tight stricture in distil CBD, about 3 cm in length with marked dilation of CBD proximal to the stricture. A sphincterotomy was performed and no immediate complications were noted. We then used a 12/15 mm extraction balloon to sweep the CBD. Tight stricture was noted in distil CBD. We then obtained brush cytology from distil CBD. A single fully covered metallic biliary stent (10 mm x 6 cm) was placed in CBD. Position was good with good bile drainage. Pancreatogram (partial) was obtained due to inadvertent PD cannulation which revealed abnormal, markedly dilated proximal PD. The scope was then withdrawn and the patient tolerated the procedure well. Pre-Op/Pre-Procedure Diagnosis: Pancreatic mass with obstructive jaundice Post-Op/Post-Procedure Diagnosis: Tight distil CBD stricture S/P sphincterotomy, brush cytology and biliary stenting (fully covered metal stent) PD stenting which fell out during the procedure Specimens: See above EBL: None Complications: None Recommendations:1. NPO for next 4 hours, if no symptoms, then start on clears 2. Lactated Ringer's @ 250 ml/ hour x 8 hours 3. If the patient experiences abdominal pain with or without nausea and vomiting, please check lipase and inform the endoscopist as they may be at risk for post-ERCP pancreatitis or perforation. 4 Monitor for GI bleeding, fever, chills 5. Check LFT's in AM If the patient experiences abdominal pain with or without nausea and vomiting, please check lipase and inform the endoscopist as they may be at risk for post-ERCP pancreatitis or perforation. Monitor for GI bleeding, fever, chills No qualified resident/fellow was available. Pily Acevedo MD SIGNATURE: Pily Acevedo MD PATIENT NAME: Moustapha Vasquez DATE: September 04, 2019 TIME: 12:53 PM PAGER/CONTACT #: [phone] [facility] PROGRESSon 09-04-2019 PROGRESS HNO ID: [id number] Author: Celeste Mcmahan Service: General Surgery Author Type: Resident Type: Progress Notes Filed: 09/04/2019 7:31 AM Note Text: -- Attestation signed by Margarita Castillo at 09/04/2019 7:18 PM Attending Note I personally saw and examined the patient. I reviewed the resident's note. I agree with the resident's assessment and plan with the following revisions and/or additions: Await ERCP today. Signature: Margarita Castillo MD Date: 09/04/2019 Time: 7:18 PM -- Elective General Surgery Progress Note SERVICE DATE: 09/04/2019 Elective General Surgery Service Pager: For questions or concerns Mon-Fri 6a-5p please page [phone]. After 5pm and on Weekends and Holidays, please page [phone] if in ICU or [phone] if on RNF. SUBJECTIVE: NAEON. Denies fevers, chills, CP, SOB, or any other complaints this AM. Tolerating diet DIET NPO Nausea No Emesis No Flatus Yes Bowel movement Yes Pain Controlled Yes Ambulating Yes OBJECTIVE: Vitals: Temp (24hrs), Av.6 ?C (97.8 ?F), Min:36.4 ?C (97.5 ?F), Max:36.9 ?C (98.4 ?F) BP 152/91 Pulse 89 Temp 36.4 ?C (97.5 ?F) (Oral) Resp 18 Ht 172.7 cm (5' 8) Wt 72.1 kg (159 lb) SpO2 98% BMI 24.18 kg/m? O2 Therapy: Room Air IANDO: Date 09/03/19699 - 09/04/1965809/04/19699 - 09/05/19 0659 Shift 9990-1801 4039-0544 7511-6056 24 Hour Total 4159-3095 8664-9726 0119-5453 24 Hour Total INTAKE PO 360 360 PO 360 360 IV 800 1000 1000 2800 OR Crystalloid intake (mL) 800 800 Volume (mL) (lactated ringers infusion) 1000 1000 2000 Shift Total 800 1360 1000 3160 OUTPUT Urine Urine Not Saved. 1 x 1 x 2 x Shift Total Weight (kg) 72.1 72.1 72.1 72.1 72.1 72.1 72.1 72.1 MEDICATIONS Current Facility-Administered Medications Medication Dose Route Frequency - lactated ringers infusion 125 mL/hr INTRAVENOUS CONTINUOUS - ondansetron (PF) 4 mg injection (ZOFRAN) 4 mg INTRAVENOUS PRN - benzocaine-menthol 1 Lozenge (CEPACOL) 1 Lozenge MUCOUS MEMBRANE (TOPICAL MOUTH AND THROAT) q 2 H PRN - melatonin 3 mg tab(s) 3 mg ORAL DAILY (8 PM) - acetaminophen 325 mg tab(s) (TYLENOL) 325 mg ORAL q 4 H PRN - morphine 2 mg injection 2 mg INTRAVENOUS q 2 H PRN - NaCl 0.9% 3-5 mL 3-5 mL INTRAVENOUS q 12 H - ondansetron 4 mg tab(s) (ZOFRAN) 4 mg ORAL q 6 H PRN Or - ondansetron (PF) 4 mg injection (ZOFRAN) 4 mg INTRAVENOUS q 6 H PRN - hydrOXYzine HCl 10 mg tab(s) (ATARAX) 10 mg ORAL q 6 H PRN - iv contrast (radiology procedure) INTRAVENOUS DIRECTED PRN - dextrose 5% in LR infusion (D5-LR) 75 mL/hr INTRAVENOUS CONTINUOUS Labs: Recent Labs 09/03/19 0742 09/02/19 1400 NA 138 141 K 3.3* 3.8 CHLOR 102 102 CO2 25 27 BUN 5* 8* CREAT 0.65* 0.69* GLUC 122* 135* ANION 11 12 CA 8.7 8.9 ALB 3.3* 3.5* AST 178* 161* ALT 228* 230* ALKPHOS 495* 518* TBILI 5.9* 5.6* WBC -- 5.81 HB -- 12.7* HCT -- 37.5* PLT -- 360 INR -- 1.32* Exam: GENERAL: resting comfortably, in no acute distress HEENT: normocephalic, atraumatic, EOMI NECK: trachea midline, no JVD LUNGS: Unlabored breathing, equal chest rise bilaterally CARDIAC: Regular rate and rhythm as above ABDOMEN: Soft, mild tenderness in epigastric region, non-distended EXTREMITIES: COY, No deformities SKIN: Skin color, texture, turgor normal NEURO: AANDOx3, CN II-XII grossly intact PSYCH: normal mood and affect ASSESSMENT AND PLAN: Active Hospital Problems Diagnosis Date Noted - Pancreatic mass 09/02/2019 69 year old male admitted for CT A/P concerning for mass within the pancreatic head, dilation of bile ducts and diffuse atrophy of pancreas. EUS 09/02: Mass in head of pancreas, Dilated PD and CBD. - Diet: NPO - Plan for ERCP today with GI - Pain and nausea control - EUS cyto pending - PRN atarax - Trend LFTs - DVT PPx: LVX - Encourage ambulation, IS Staff Surgeon: Dr. Castillo SIGNATURE: Celeste Mcmahan MD PATIENT NAME: Moustapha Vasquez DATE: September 04, 2019 TIME: 6:20 AM Pager: see below Elective General Surgery Service Pager: For questions or concerns Mon-Fri 6a-5p please page [phone]. After 5pm and on Weekends and Holidays, please page [phone]. [facility] PT EDon 09-04-2019 PT ED HNO ID: [id number] Author: Luna (Rn) YOEL Olivas Service: ? Author Type: Registered Nurse Type: Patient Education Filed: 09/04/2019 11:22 AM Note Text: PRE OP LEARNING ASSESSMENT PROCEDURE/SURGERY: SURGERY: ercp READINESS TO LEARN COGNITIVE ABILITY: Alert and oriented MOTIVATION TO LEARN: Interested FAMILY SUPPORT: None - Unavailable/disinterested PATIENT LEARNS BEST BY: Individual Instruction Verbal Instruction FACTORS AFFECTING LEARNING: None PHYSICAL LIMITATIONS AFFECTING LEARNING: None Electronically Signed By: Luna Olivas (RN) In Department: [place] SUR[facility]ERY OR [facility] XR ERCP READ ONLYon 09-04-19 XR ERCP READ ONLY * * *Final Report* * * DATE OF EXAM: Sep 04 2019 1:01PM [facility] [id number] - XR ERCP READ ONLY / PROCEDURE REASON: ERCP * * * * Physician Interpretation * * * * EXAM TITLE: XR ERCP READ ONLY DATE: 09/04/2019 INDICATION: Images for ERCP in patient with suspected bile duct obstruction. COMPARISON: CT scan dated 09/02/2019 Study consists of 14 images showing an endoscope within the second portion duodenum. There is narrowing of the distal common bile duct. A guidewires placed into a dilated common bile duct and balloon dilatation is performed. Finally, a biliary wall stent is placed across the area of distal common bile duct stricture. 1 minute and 39 seconds of fluoroscopic time utilized. IMPRESSION: Procedure films for evaluation of distal common bile duct stricture and placement of Wallstent. Mathematics Faculty Member: LUIS Transcribe Date/Time: Sep 04 2019 1:43P Dictated by : MANASA JANE MD This examination was interpreted and the report reviewed and electronically signed by: MANASA JANE MD on Sep 04 2019 1:45PM EST [facility] ANES Sarah 09-03-2019 ANES POST HNO ID: [id number] Author: Cecil Walter Service: Anesthesiology Author Type: Physician Type: Anesthesia PostOp Filed: 09/03/2019 2:50 PM Note Text: POST ANESTHESIA EVALUATION NOTE SERVICE DATE: 09/03/2019 SERVICE TIME: 1449 : 1950 Vitals: 09/02/19 1239 09/02/19 1924 09/03/19 0800 09/03/19 1437 Temp: 36.7 ?C (98.1 ?F) 36.4 ?C (97.5 ?F) 36.9 ?C (98.4 ?F) 36.4 ?C (97.5 ?F) 09/03/19 1328 09/03/19 1343 09/03/19 13509/03/19 1437 BP: 120/65 121/84 146/82 151/82 09/03/19 1328 09/03/19 1343 09/03/19 1359 09/03/19 1437 Pulse: 63 65 75 65 09/03/19 1328 09/03/19 1343 09/03/19 1359 09/03/19 1437 Resp: 16 18 18 18 09/03/19 1328 09/03/19 1343 09/03/19 1359 09/03/19 1437 SpO2: 99% 99% 99% 99% Validated Vital Signs: Yes POST ANES STATUS: No apparent anesthetic complications. The patient is appropriately hydrated with stable respiratory and cardiovascular status. Patient has safe and adequate airway control. The patient has appropriate pain relief and no significant post operative nausea or vomiting. The patient has achieved baseline mental status. Intra-Operative Events: No Significant Anesthesia Events Further assessment by Anesthesia Service: None Other Remarks: Per report, pt met criteria for discharge from PACU SIGNATURE: Cecil Walter MD PATIENT NAME: Moustapha Vasquez DATE: September 03, 2019 TIME: 2:50 PM PAGER/CONTACT #: [facility] ANES PREOPon 09-03-2019 ANES PREOP HNO ID: [id number] Author: Cecil Walter Service: Anesthesiology Author Type: Physician Type: Anesthesia PreOp Filed: 09/03/2019 10:45 AM Note Text: ANESTHESIOLOGY DAY OF SURGERY NOTE SERVICE DATE: 09/03/2019 SERVICE TIME: 1020 : 1950 Procedure(s) (LRB): ENDOSCOPY UPPER GI W/ ENDOSCOPIC ULTRASOUND EXAMINATION, (Left) Surgeon(s): Pily Acevedo Estimated body mass index is 24.18 kg/m? as calculated from the following: Height as of this encounter: 172.7 cm (5' 8). Weight as of this encounter: 72.1 kg (159 lb). Most recent hematocrit and potassium results: Hematocrit 37.5 09/02/2019 Potassium 3.3 09/03/2019 ANES DOS/PREOP NOTE: Vitals: 09/02/19 1547 09/02/19 1924 09/03/19 0800 09/03/19 0955 BP: 154/92 138/93 146/83 155/85 Pulse: 85 83 66 82 Resp: 16 16 16 16 Temp: 36.4 ?C (97.5 ?F) 36.9 ?C (98.4 ?F) TempSrc: Temporal Oral SpO2: 100% 99% 100% 97% Weight: Height: ACTIVE PROBLEM LIST Closed Dislocation of Elbow Laxity of Ligament Pain in Joint, Upper Arm Follow-Up Examination Following Surgery CHOLECYSTITIS SEE ALSO GALLBLADDER ACUTE WITH CALCULUS( Without obstruction) Pancreatic Mass PAST MEDICAL HISTORY Diagnosis Date - Acute cholecystitis PAST SURGICAL HISTORY Procedure Laterality Date - LAP CHOLECYSTECT/CHOLANGIOGRAP 02-10-08 - UPPER ARM/ELBOW SURGERY UNLISTED Left pin No family history on file. Social History: Social History Tobacco Use - Smoking status: Never Smoker - Smokeless tobacco: Never Used Substance Use Topics - Alcohol use: Not Currently - Drug use: Never No current facility-administered medications on file prior to encounter. No current outpatient medications on file prior to encounter. Current Facility-Administered Medications Medication Dose Route Frequency Provider Last Rate Last Dose - lactated ringers infusion 5-30 mL/hr INTRAVENOUS CONTINUOUS Pily Acevedo 30 mL/hr at 09/03/19 1000 30 mL/hr at 09/03/19 1000 - [MAR Hold due to Transfer] NaCl 0.9% 3-5 mL 3-5 mL INTRAVENOUS q 12 H Moustapha (Lynne Gasca MD 3 mL at 09/02/19 1248 - [MAR Hold due to Transfer] ondansetron 4 mg tab(s) (ZOFRAN) 4 mg ORAL q 6 H PRN Moustapha Gasca MD Or - [MAR Hold due to Transfer] ondansetron (PF) 4 mg injection (ZOFRAN) 4 mg INTRAVENOUS q 6 H PRN Moustapha Gasca MD 4 mg at 09/02/19 193 - [MAR Hold due to Transfer] hydrOXYzine HCl 10 mg tab(s) (ATARAX) 10 mg ORAL q 6 H PRN Moustapha Gasca MD - [MAR Hold due to Transfer] iv contrast (radiology procedure) INTRAVENOUS DIRECTED PRBebe Hancock MD - [MAR Hold due to Transfer] iv contrast (radiology procedure) INTRAVENOUS DIRECTED PRBebe Hancock MD And - [MAR Hold due to Transfer] enteric contrast (radiology procedure) ORAL DIRECTED PRBebe Hancock MD - [MAR Hold due to Transfer] dextrose 5% in LR infusion (D5-LR) 75 mL/hr INTRAVENOUS CONTINUOUS Julio Hancock MD 75 mL/hr at 09/02/192099 75 mL/hr at 09/02/192099 Allergies: ALLERGIES No Known Allergies DOS EXAM: Adequate NPO status: Yes Anesthetic risks, benefits, alternatives, personnel and consent discussed: Yes Patient agrees to proceed: Yes Previous Anesthesia: No history of adverse event. Airway Assessment: MP 2; Neck ROM: Full ROM without neurologic symptoms; Airway Evaluation: No significant abnormalities Symptoms of Sleep Apnea: None Dentition: Teeth intact Additional Physical Exam: Lungs: Patient health status unchanged since recent history and physical. See history and physical for exam findings. Cardiac: Patient health status unchanged since recent history and physical. See history and physical for exam findings. Additional Pertinent Findings: N/A Blood Products: Not anticipated for this procedure. Anesthetic Plan: MAC with Sedation and Standard ASA Monitors Pain Management Plan: Parenteral or Oral ASA Class: 3 Other Medical Problems: None Chronic Beta Thierno medication administered within 24 hours: N/A I have interviewed and examined the patient. I have reviewed the medical record and/or the pre-anesthesia evaluation, pertinent labs, and test results. Significant changes in the patient's condition since the History and Physical, not otherwise documented in primary service progress notes: No This contains updated information obtained within 48 hours of Surgery/Procedure. SIGNATURE: Cecil Walter MD PATIENT NAME: Moustapha Vasquez DATE: September 03, 2019 TIME: 10:44 AM CSN: [id number] [facility] [id number] 09-03-2019 CA19-9 140.7 U/ml High 0.0-35.0 [facility] Comment on above: Performed By: #### C A199 #### [facility] [address] [address] CONSULTon 09-03-2019 CONSULT HNO ID: [id number] Author: Susana Brown Service: Gastroenterology Author Type: Nurse Practitioner Type: Consults Filed: 09/03/2019 9:54 AM Note Text: CONSULT: GI SERVICE SERVICE DATE: 09/03/2019 SERVICE TIME: 8:55 am REASON FOR CONSULT: EUS REQUESTING PHYSICIAN: surgery PRIMARY CARE PHYSICIAN: Anjelica Mendoza MD Subjective Mr. Vasquez is a 69 year old male who presents from [facility] as transfer for pancreatic mass. PMHx of acute cholecystitis s/p lap joshua 2007. GI was consulted for EUS. Patient reports fatigues, loss of appetite and weight loss for 2 weeks. He states that he was also told that he is jaundice at [place]. He does c/o shortness of breath with activity as well. He denies any fever, no chest pain and no shortness of breath at rest. He did have workup done at [place] for obstructive jaundice and MRCP showed a mass in the pancreatic head so patient was transferred to [facility] under general surgery. He does not take OAC. INR 1.39. T bili 5.8 today with elevation in AST, ALT and alk phos as well. Vital signs stable and he is afebrile with no leukocytosis. CT pancrease and pelvis done showing marked biliary dilatation and moderate pancreatic duct dilatation with the point of transition near the ampulla. Patient is NPO at this time. He has no additional GI complaints. FUNCTIONAL STATUS: Independent PAST MEDICAL HISTORY Diagnosis Date - Acute cholecystitis PAST SURGICAL HISTORY Procedure Laterality Date - LAP CHOLECYSTECT/CHOLANGIOGRAP 02-10-08 No family history on file. Social History Tobacco Use - Smoking status: Never Smoker Substance Use Topics - Alcohol use: Not on file - Drug use: Not on file No medications prior to admission. Current Facility-Administered Medications Medication Dose Route Frequency - NaCl 0.9% 3-5 mL 3-5 mL INTRAVENOUS q 12 H - ondansetron 4 mg tab(s) (ZOFRAN) 4 mg ORAL q 6 H PRN Or - ondansetron (PF) 4 mg injection (ZOFRAN) 4 mg INTRAVENOUS q 6 H PRN - hydrOXYzine HCl 10 mg tab(s) (ATARAX) 10 mg ORAL q 6 H PRN - iv contrast (radiology procedure) INTRAVENOUS DIRECTED PRN - iv contrast (radiology procedure) INTRAVENOUS DIRECTED PRN And - enteric contrast (radiology procedure) ORAL DIRECTED PRN - dextrose 5% in LR infusion (D5-LR) 75 mL/hr INTRAVENOUS CONTINUOUS Allergies As of Date: 09/02/2019 (No Known Allergies) Fully Assessed 09/02/2019 COMPLETE REVIEW OF SYSTEMS: PAIN ASSESSMENT: has right upper abdominal pain after eating at times GENERAL: Unintentional weight loss, Fatigue, Negative for malaise RESPIRATORY: Negative for cough, hemoptysis, wheezing, COPD, dyspnea or shortness of breath CARDIOVASCULAR: Negative for chest pain, leg swelling, hypertension, CHF or palpitations GI: Positive for abdominal discomfort general , anorexia for 2 weeks : Negative SKIN: Positive for yellow skin per patient HEMATOLOGY/LYMPHOLOGY: Negative for prolonged bleeding, bruising easily or swollen nodes ENDOCRINE: Negative for cold or heat intolerance, polyuria, polydipsia and goiter Objective PHYSICAL EXAM: Physical Exam Performed: GENERAL: Alert, no distress, cooperative SKIN: Positive findings: Jaundice OROPHARYNX: Lips, mucosa, and tongue normal. Teeth and gums normal. Oropharynx normal. LUNGS: Lungs clear to auscultation, Good diaphragmatic excursion CARDIAC: Normal S1 and S2; no rubs, murmurs, or gallops ABDOMEN: abdomen soft with left upper mild tenderness with palpation, no rebound tenderness or rigidity EXTREMITIES: Normal exam of the extremities PULSES: 2+ radial, 2+ dorsalis pedis The remainder of the physical exam is noncontributory. BP 146/83 Pulse 66 Temp (Src) 98.4 (Oral) Resp 16 Ht 5' 8 (1.73m) Wt 159 lb (72.1kg) SpO2 100% BMI 24.18 kg/(m2). O2 Therapy: Room Air DATA: Diagnostic tests reviewed for today's visit: Most recent labs and imaging results. WBC (thou/cmm) Date Value 09/02/2019 5.81 RBC (mil/cmm) Date Value 09/02/2019 3.77 (L) Hemoglobin (g/dL) Date Value 08/28/2003 12.9 (A) HGB (g/dL) Date Value 09/02/2019 12.7 (L) Hematocrit (%) Date Value 09/02/2019 37.5 (L) MCV (fl) Date Value 09/02/2019 99.5 (H) MCH (pg) Date Value 09/02/2019 33.7 (H) MCHC (%) Date Value 09/02/2019 33.9 RDW-CV (%) Date Value 08/28/2003 13.0 Platelet Count (thou/cmm) Date Value 09/02/2019 360 MPV (fl) Date Value 09/02/2019 9.2 Glucose (mg/dL) Date Value 09/03/2019 122 (H) BUN (mg/dL) Date Value 09/03/2019 5 (L) Creatinine (mg/dL) Date Value 09/03/2019 0.65 (L) Sodium (mmol/L) Date Value 09/03/2019 138 Potassium (mmol/L) Date Value 09/03/2019 3.3 (L) Chloride (mmol/L) Date Value 09/03/2019 102 CO2 (mmol/L) Date Value 09/03/2019 25 Protein, Total (g/dL) Date Value 09/03/2019 6.2 (L) Albumin (g/dL) Date Value 09/03/2019 3.3 (L) Calcium (mg/dL) Date Value 09/03/2019 8.7 Alkaline Phosphatase (U/L) Date Value 09/03/2019 495 (H) Bilirubin, Total (mg/dL) Date Value 09/03/2019 5.9 (H) AST (U/L) Date Value 09/03/2019 178 (H) ALT (U/L) Date Value 09/03/2019 228 (H) CA -19-9 - pending URINALYSIS No results found for: PH, SPGR, UGLUC, UBILI, UKET, UHB, UPROT, UROBIL, UWBC, SSA CT Pancrease and pelvis W IVCON 09/02/19 IMPRESSION: There is marked biliary dilatation and moderate pancreatic duct dilatation with the point of transition near the ampulla. A very small ampullary or pancreatic tumor. This site is suspected but not definitely visualized. There is one enlarged lymph node at the level of the celiac axis between the portal vein and inferior vena cava. No other suspicious lymphadenopathy is appreciated. There is no evidence of any metastatic disease in the liver. There is some colonic diverticulosis without evidence of diverticulitis. The gallbladder is absent. No other significant abdominal or pelvic abnormality is appreciated. Biliary: There is extensive intrahepatic biliary dilation with common bile duct is dilated to as much as 26 mm. It tapers abruptly in the lower pancreatic head near the ampulla. ?No intraluminal filling defects are identified. The gallbladder is absent. Pancreas: There is dilation of the pancreatic duct throughout its length with proximal maximum diameter of 7 mm. There is some dilation of side branches in the body and tail of the pancreas. These are better appreciated on the outside MRI. A definite well-defined identifiable pancreatic head or ampullary mass is not appreciated. CT chest 09/02/19 IMPRESSION: There is some right costophrenic angle pleural thickening with a focal area measuring 12 x 9 mm. No other significant active disease is identified in the rest of the chest. Impression/Recommendations Active Problems: 69 yo male with 2 weeks of abdominal pain, loss of appetite and weight loss and fatigue who was transferred from [facility] for pancreatic mass. He had workup for obstructive jaundice with MRCP that revealed pancreatic mass. 1. Suspect pancreatic mass with biliary and pancreatic duct dilation - seen on CT pancrease and pelvis done 09/01 with results above. T bili 5.9 today with elevated alt, ast and alk phos. INR 1.32. patient was admitted to surgery for this and GI was consulted for EUS. Patient is NPO and agreeable to EUS today with Dr. Acevedo. - monitor LFT's - INR 1.39 - NPO - CA 19-9 pending - EUS today with Dr. Acevedo - surgery following 2. Juandice with elevated LFT's - likely related to #1. T bili 5.9 today, alk phos 495, ALT [address] abdomen and pelvis with results as above. Patient c/o fatigue, weight loss, jaundice and mild abdominal pain at times for 2 weeks. S/p cholecystectomy some years ago per patient - Monitor LFT's - CT pancrease and pelvis done - CT chest done - NPO - EUS today - pain and nausea control per primary team EUS today with Dr. Acevedo GI will follow SIGNATURE: Susana Brown APRN.CNP PATIENT NAME: Moustapha Vasquez DATE: September 03, 2019 TIME: 9:18 AM PAGER: [phone] [facility] Comprehensive Metabolic Pane kendrick 09-03-2019 Albumin [Mass/Vol] 3.3 g/dL Low 3.9-4.9 [facility] Comment on above: Performed By: #### C MP #### [facility] [address] [place], [place] [address] ALP [Catalytic activity/Vol] 495 U/L High 38-113 [facility] Comment on above: Performed By: #### C MP #### [facility] [address] [place], [place] [address] ALT [Catalytic activity/Vol] 228 U/L High 10-54 [facility] Comment on above: Performed By: #### C MP #### [facility] [address] [place], [place] [address] Anion gap [Moles/Vol] 11 mmol/L Normal 9-18 [facility] Comment on above: Performed By: #### C MP #### [facility] [address] [place], [place] [address] AST [Catalytic activity/Vol] 178 U/L High 14-40 [facility] Comment on above: Performed By: #### C MP #### [facility] [address] [place], [place] [address] Bilirubin [Mass/Vol] 5.9 mg/dL High 0.2-1.3 [facility] Comment on above: Performed By: #### C MP #### [facility] [address] [place], [place] [address] Calcium [Mass/Vol] 8.7 mg/dL Normal 8.5-10.2 [facility] Comment on above: Performed By: #### C MP #### [address] [address] Chloride [Moles/Vol] 102 mmol/L Normal 97-105 [facility] Comment on above: Performed By: #### C MP #### [facility] [address] [place], [place] [address] CO2 Blood 25 mmol/L Normal 22-30 [facility] Comment on above: Performed By: #### C MP #### [facility] [address] [place], [place] [address] Creatinine [Mass/Vol] 0.65 mg/dL Low 0.73-1.22 [facility] Comment on above: Performed By: #### C MP #### [facility] [address] [place], [place] [address] Glucose [Mass/Vol] 122 mg/dL High 74-99 [facility] Comment on above: Result Comment: The [place] Diabetes Association (ADA) provides guidance for cutoff values for fasting glucose and random glucose. The ADA defines fasting as no caloric intake for at least 8 hours.Fasting plasma glucose results between 100 to 125 mg/dL indicate increased risk for diabetes (prediabetes). Fasting plasma glucose results greater than or equal to 126 mg/dL meet the criteria for diagnosis of diabetes. In the absence of unequivocal hyperglycemia, results should be confirmed by repeat testing. In a patient with classic symptoms of hyperglycemia or hyperglycemic crisis, random plasma glucose results greater than or equal to 200 mg/dL meet the criteria for diagnosis of diabetes. Reference: Standards of Medical Care in Diabetes 2016; [place] [employer] Association. Diabetes Care. 2016;39(Suppl 1). Performed By: #### C MP #### [facility] [address] [place], [place] [address] Potassium [Moles/Vol] 3.3 mmol/L Low 3.7-5.1 [facility] Comment on above: Performed By: #### C MP #### [facility] [address] [place], [place] [address] Protein [Mass/Vol] 6.2 g/dL Low 6.3-8.0 [facility] Comment on above: Performed By: #### C MP #### [facility] [address] [place], [place] [address] Sodium [Moles/Vol] 138 mmol/L Normal 136-144 [facility] Comment on above: Performed By: #### C MP #### [facility] [address] [place] [address] Urea nitrogen [Mass/Vol] 5 mg/dL Low 9-24 [facility] Comment on above: Performed By: #### C MP #### [facility] [address] [place] [address] Cytology, Medicalon 09-03-19 20 Cytology, Medical Test performed at [place] [address] NAME: MOUSTAPHA VASQUEZ REQUESTING: MARGARITA CASTILLO MD COPY TO: PILY ACEVEDO DIAGNOSIS PANCREATIC HEAD MASS, ENDOSCOPIC ULTRASOUND GUIDED ASPIRATION - POSITIVE FOR MALIGNANT CELLS. ADENOCARCINOMA. COMMENT A KERATIN STAIN IS POSITIVE WITHIN NEOPLASTIC CELLS. THE CASE HAS BEEN REVIEWED AT [facility] AND A SEPARATE CONCURRING REPORT HAS BEEN ISSUED. SPECIMEN: A) FAP, PANCREATIC MASS HEAD - EUS Description: Materials Prepared & Examined: Other: ............. 1 # of Cell Blocks: .......... 1 SALINE # of Monolayers: .......... 1 8 AIR DRIED SMEARS # of Smear slides: ......... 6 ALC FIXED SMEARS 14 NO COVID TEST # of Slides: ................. 20 PROCEDURE: Adequacy Interpretation *DIFF Quik RAPID READ* Each number in this assessment references a discrete evaluation episode. ADQ # 1 (2 slides), 2, 3, 5, 6: Not adequate by Automotive Light Mechanic: RUPERTO. ADQ # 4, 7: Adequate by Automotive Light Mechanic: RUPERTO. Electronically Signed: 09/10/2019 Screened by: DEEPTI MCDONNELL(ASCP) Signed Out by: JAYESH DAVIDSON M.D., PATHOLOGIST Printed on: September 10, 2019 Page 1 of 1 Normal [facility] Comment on above: Performed By: #### P T #### [place] [address] MDRD GFRon 09-03-2019 GFR/1.73 sq M predicted among non-blacks MDRD (S/P/Bld) [Vol rate/Area] mL/min/{1.73_m2} Normal >60mL/min/1 .73m2 [facility] Comment on above: Result Comment: If t he patient is , multiply the result by 1.210. Performed By: #### G FR #### [facility] [address] [place] [id number] OPERATIVE NOon 09-03-2019 OPERATIVE NO HNO ID: [id number] Author: Pily Acevedo Service: Gastroenterology Author Type: Physician Type: Operative Report Filed: 09/03/2019 1:23 PM Note Text: OPERATIVE/PROCEDURE REPORT LOG ID: [id number] Surgery/Procedure Date: 09/03/2019 Incision/Procedure Start Time: 11:46 AM Incision Close/Procedure End Time: Surgeon(s)/Proceduralist(s ) and Bag Sewer(s): Surgeon(s) and Role: * Pily Acevedo - Primary No Additional Staff Procedure(s): Endoscopic Ultrasound (EUS) and Fine Needle Aspiration (FNA) Esophagogastroduodenoscopy (EGD) Anesthesia: Monitored Anesthesia Care Brief History: 69/M, admitted with jaundice with CT-scan showing dilated CBD and PD, however, no mass seen on CT-scan Procedure Details: The patient was placed in the left lateral decubitus position. A bite block was placed and medications administered as above. The Olympus gastroscope was used to intubate the oropharynx and esophagus with ease. We proceeded down to the second part of the duodenum. The duodenal mucosa and bulb appeared normal. We then withdrew into the stomach and visualized a normal antrum and body. Retroflexion was performed and this showed a normal fundus and cardia. The squamocolumnar junction, GE junction and esophagus appeared normal. The scope was then withdrawn and the patient tolerated the procedure well. With the patient in the same position, the Olympus radial echoendoscope was then used to intubate the oropharynx and esophagus with ease. We proceeded down to the posterior aspect of the gastric body. Esophagus and stomach- normal CBD and GB- normal Pancreas- abnormal, mass in the head of pancreas Liver- normal Left kidney and adrenal- normal The aorta and celiac artery takeoff were visualized. The splenic vasculature appeared normal. The pancreatic parenchyma was visualized and had normal echogenicity in the body and tail. The pancreatic duct in the body was dilated and measured 5 mm. There is no evidence of cystic structures, masses or chronic pancreatitis. The pancreatic parenchyma was scanned down to the tail and appeared normal. We then advanced the scope to the duodenal bulb. The CBD was dilated to 1.57 cm with no evidence of intraductal stones. A normal stack sign was seen with normal portal vein, pancreatic duct and CBD. The scope was advanced to the second part of the duodenum. The ampullary view appeared normal. Mass seen in head of pancreas, size 2.4 cm x 2.17 cm. Mass as not invading portal vein or other major vessels. Using Pivotstream 22 G needle, 7 passes made into the mass and tissue obtained. On site kaiako kura tuarua confirmed adequate tissue sample. In addition, one per-pancreatic lymph node seen, size 1 cm- FNA obtained. The scope was then withdrawn and the patient tolerated the procedure well. Pre-Op/Pre-Procedure Diagnosis: Suspected pancreatic mass Post-Op/Post-Procedure Diagnosis: Mass in head of pancreas FNA obtained Dilated PD and CBD Specimens: see above EBL: None Complications: None Recommendations: Monitor for GI bleeding, acute pancreatitis or GI perforation Follow up pathology/cytology ERCP in AM No qualified resident/fellow was available. Pily Acevedo MD SIGNATURE: Pily Acevedo MD PATIENT NAME: Moustapha Vasquez DATE: September 03, 2019 TIME: 1:12 PM PAGER/CONTACT #:[phone] [facility] PROGRESSon 09-03-2019 PROGRESS HNO ID: [id number] Author: Virginie Moss MD Service: General Surgery Author Type: Resident Type: Progress Notes Filed: 09/03/2019 8:23 AM Note Text: -- Attestation signed by Margarita Castillo at 09/03/2019 10:26 AM Attending Note I personally saw and examined the patient. I reviewed the resident's note. I agree with the resident's assessment and plan with the following revisions and/or additions: Await EUS today. CT did not show a distinct mass. Constancebun higher today. Signature: Margarita Castillo MD Date: 09/03/2019 Time: 10:25 AM -- Elective General Surgery Progress Note SERVICE DATE: 09/03/2019 Elective General Surgery Service Pager: For questions or concerns Mon-Fri 6a-5p please page [phone]. After 5pm and on Weekends and Holidays, please page [phone] if in ICU or [phone] if on RNF. SUBJECTIVE: NAEON. Denies fevers, chills, CP, SOB, headache, cough, muscle weakness, numbness, urinary difficulty, or any other complaints this AM. Tolerating diet DIET NPO Nausea No Emesis No Flatus Yes Bowel movement Yes Pain Controlled Yes Ambulating Yes OBJECTIVE: Vitals: Temp (24hrs), Av.6 ?C (97.8 ?F), Min:36.4 ?C (97.5 ?F), Max:36.7 ?C (98.1 ?F) BP 138/93 Pulse 83 Temp 36.4 ?C (97.5 ?F) (Temporal) Resp 16 Ht 172.7 cm (5' 8) Wt 72.1 kg (159 lb) SpO2 99% BMI 24.18 kg/m? O2 Therapy: Room Air IANDO: Date 09/02/19699 - 09/03/19 0609/03/19699 - 09/04/19 0659 Shift 4344-6583 4787-3500 8333-1449 24 Hour Total 0111-8454 3854-7902 5892-8082 24 Hour Total INTAKE PO 200 200 PO 200 200 Shift Total 200 200 OUTPUT Urine Urine Not Saved. 1 x 1 x Shift Total Weight (kg) 72.1 72.1 72.1 72.1 72.1 72.1 72.1 72.1 MEDICATIONS Current Facility-Administered Medications Medication Dose Route Frequency - NaCl 0.9% 3-5 mL 3-5 mL INTRAVENOUS q 12 H - ondansetron 4 mg tab(s) (ZOFRAN) 4 mg ORAL q 6 H PRN Or - ondansetron (PF) 4 mg injection (ZOFRAN) 4 mg INTRAVENOUS q 6 H PRN - hydrOXYzine HCl 10 mg tab(s) (ATARAX) 10 mg ORAL q 6 H PRN - iv contrast (radiology procedure) INTRAVENOUS DIRECTED PRN - iv contrast (radiology procedure) INTRAVENOUS DIRECTED PRN And - enteric contrast (radiology procedure) ORAL DIRECTED PRN - dextrose 5% in LR infusion (D5-LR) 75 mL/hr INTRAVENOUS CONTINUOUS Labs: Recent Labs 09/02/19 1400 NA 141 K 3.8 CHLOR 102 CO2 27 BUN 8* CREAT 0.69* GLUC 135* ANION 12 CA 8.9 ALB 3.5* AST 161* ALT 230* ALKPHOS 518* TBILI 5.6* WBC 5.81 HB 12.7* HCT 37.5* PLT 360 INR 1.32* Exam: GENERAL: resting comfortably, in no acute distress HEENT: normocephalic, atraumatic, EOMI NECK: trachea midline, no JVD LUNGS: Unlabored breathing, equal chest rise bilaterally CARDIAC: Regular rate and rhythm as above ABDOMEN: Soft, non-tender, non-distended, no masses or organomegaly EXTREMITIES: COY, No deformities, No edema SKIN: Skin color, texture, turgor normal, No rashes or lesions NEURO: AANDOx3, CN II-XII grossly intact PSYCH: normal mood and affect ASSESSMENT AND PLAN: Active Hospital Problems Diagnosis Date Noted - Pancreatic mass 09/02/2019 69 year old male admitted for CT A/P concerning for mass within the pancreatic head, dilation of bile ducts and diffuse atrophy of pancreas. - Diet: NPO - Plan for EUS today - Pain and nausea control - PRN atarax - Trend LFTs - DVT PPx: LVX - Encourage ambulation, IS Staff Surgeon: Dr. Castillo SIGNATURE: Virginie Moss MD PATIENT NAME: Moustapha Vasquez DATE: September 03, 2019 TIME: 8:20 AM Pager: see below Elective General Surgery Service Pager: For questions or concerns Mon-Fri 6a-5p please page [phone]. After 5pm and on Weekends and Holidays, please page [phone]. [facility] PT EDon 09-03-2019 PT ED HNO ID: [id number] Author: Bisi MillerRnAntelmo Dunlap RN Service: Nursing Author Type: Registered Nurse Type: Patient Education Filed: 09/03/2019 1:31 PM Note Text: ONGOING PATIENT EDUCATION TOPIC Reinforced: sedation Patient Name: Moustapha Vasquez [place] Readiness To Learn Motivation To Learn: Interested Instruction Provided To: Patient Learning Response Patient/Family Response: Verbalizes understanding of: POST-PROCEDURE INSTRUCTIONS-Correct actions to take to reduce post procedure complications Method of Instruction: Verbal instruction Follow-Up Plan: Complete - No need for follow-up Electronically signed by: Bisi Dunlap RN [facility] PT ED HNO ID: [id number] Author: Libia MillerRn) YOEL Lovell Service: Nursing Author Type: Registered Nurse Type: Patient Education Filed: 09/03/2019 9:52 AM Note Text: PRE OP LEARNING ASSESSMENT PROCEDURE/SURGERY: GI PROCEDURES: EUS READINESS TO LEARN COGNITIVE ABILITY: Alert and oriented MOTIVATION TO LEARN: Interested FAMILY SUPPORT: None - Unavailable/disinterested PATIENT LEARNS BEST BY: Individual Instruction FACTORS AFFECTING LEARNING: None PHYSICAL LIMITATIONS AFFECTING LEARNING: None Electronically Signed By: Libia Lovell RN In Department: [place] ENDO [facility] ALLIED HEALTHon 09-02-2019 ALLIED HEALTH HNO ID: [id number] Author: Mari Peralta (Chaplain) Service: ? Author Type: Rail Bonder Type: Allied Health Filed: 09/02/2019 4:31 PM Note Text: SPIRITUAL CARE PROGRESS NOTE SERVICE DATE: 09/02/2019 SERVICE TIME: 4:00 PM As a director product safety responded to Consult Requisition for PT. Actively listened to PT, connected PT with his ganga, and prayed with PT. To contact the Spiritual Care Department: Please call [phone]. SIGNATURE: Chaplain Pa PATIENT NAME: Moustapha Vasquez DATE: September 02, 2019 TIME: 3:55 PM PAGER/CONTACT #: [phone] [facility] CASE MGT INIT ASSESon 2019 CASE MGT INIT ASSES HNO ID: [id number] Author: Sosa MillerRn) YOEL Jean Service: Care Management Author Type: Registered Nurse Type: Care Mgt Initial Assessment Filed: 09/02/2019 4:08 PM Note Text: CARE MANAGEMENT: ASSESSMENT AND DISCHARGE PLAN SERVICE DATE: September 02, 2019 SERVICE TIME: 3:56 PM PRIMARY CARE PHYSICIAN: Dr. Anjelica Mendoza -Confirmed with patient -Admitting notified ADMISSION STATUS: Inpatient Needs Prior to Discharge: To Be Determined;Pharmacy Bedside Delivery MEDICAL: Medicare -Admitting notified -Patient unsure if he has Rx coverage. Will follow. Patient/Pit Recorder Stated Goals: To return home to life as it was Health Insurance: Medicare Health Issues Impacting Discharge Plan: Newly diagnosed Newly Diagnosed: Pancreatic mass Last Discharge Date: N/A Is this Within the Past 30 days? Last discharge within 30 days: No Advance Directive: Current Advance Directive: None Quarter Inspector Attempted to Assist with AD Completion: Yes Action: Patient Unwilling Health LiteracyHow often do you need to have someone help you when you read instructions, pamphlets, or other written material from your doctor or pharmacy? : 1 - Never How confident are you filling out medical forms by yourself?: 1 - Extremely If Patient scores > 3 on either question, the following interventions were put into place:: Patient did not score > 3 on either question. Baseline Mental Status Prior to this Illness what was the patient's Baseline Mental Status?: Alert AND Oriented Prior to this illness, has anyone described the patient having any of the following behaviors?: Not Applicable Relationship of the informant to the patient:: Self Functional Status: Independent Does Patient Currently Receive Any Community Services or Home Care?: None Equipment Prior to Admission: None SOCIAL: Living Arrangements: Home Lives With: Alone Financial Resources: EmployedPrimary Contact: Shiva Vasquez Relation: Son Phone number: [phone] Supportive Patient Contact:: Yes Contact Resources: Family Social Needs Food insecurity Worry: Never true Inability: Never true Resources Needed: No Social Needs Financial resource strain: Not hard at all Social Needs Transportation needs Medical: No Non-medical: No Caregiver AssessmentCaregiver is ready, willing and able to meet the patient's needs as recommended by the inter-professional team:: Yes Does the patient have an acute stroke diagnosis, or has the patient had a stroke during this admission?: No Patient's transition needs and plan for meeting these needs: To be determined. Will follow. 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 Yes Is Patient Psychosocially Complex?: Yes, refer to Social Work ASSESSMENT AND PLAN: Medical Needs: Medical Needs: None Psychosocial Needs: Psychosocial Needs: Other: See Comment(Depression Screen. Social work consulted.) FREEDOM OF CHOICE EXPLAINED: [place] of Choice Given: No Reason Not Given: No placements necessary at this time POTENTIAL TRANSITION PLANS To Be Determined Chart reviewed. Spoke with patient at the bedside. Patient independent at home alone prior to admission. Patient hopeful to return home at discharge once medically stable. Social work consulted for complex psychosocial needs. Will follow clinical course for DC planning needs. SIGNATURE: Sosa Jean RN PATIENT NAME: Moustapha Vasquez DATE: September 02, 2019 TIME: 3:56 PM PAGER/CONTACT #: [phone] [facility] CONSULTon 09-02-2019 CONSULT HNO ID: [id number] Author: Patrick Recinos Service: Cardiovascular Medicine Author Type: Physician Type: Consults Filed: 09/02/2019 3:55 PM Note Text: CONSULT: CARDIOLOGY SERVICE SERVICE DATE: 09/02/2019 CONSULTING PHYSICIAN: Patrick Recinos MD PCP: Nurys Hutchinson MD ATTENDING: Margarita Castillo REASON FOR CONSULT: Pre-operative cardiac risk assessment Subjective CHIEF COMPLAINT: Pancreatic mass [K86.89] HISTORY OF PRESENT ILLNESS: Mr. Vasquez is a 69 year old male with no significant past medical history who was transferred from [facility] due to findings of a pancreatic mass. Cardiology consulted for preoperative cardiac risk assessment. Patient reports that for the last month, he is experiencing symptoms of fatigue and developed decreased appetite, mild abdominal pain after eating, nausea, nocturia, light colored stools and dark colored urine in the last couple weeks. In addition, he reported 10-15 pound unintentional weight loss in the last month. Given his symptoms, he went to [facility] with workup revealing findings consistent with obstructive jaundiced an MRCP revealing a mass in the pancreatic head. As a result, he was transferred to [facility] for evaluation for surgery. In discussion with the patient, he denies any cardiac complaints. He specifically denies any complaints of exertional chest pain, dyspnea on exertion, orthopnea, paroxysmal nocturnal dyspnea, lower extremity edema, presyncope, syncope, or palpitations. He reports that he exercises on a regular basis and was doing a high intensity exercise routine on a Rebounder Trampoline for 10-20 minutes daily without limitations. 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 Patient does report he had cardiac evaluation a few months ago at [facility] with an echocardiogram which was unremarkable per his report. PAST MEDICAL HISTORY Diagnosis Date - Acute cholecystitis PAST SURGICAL HISTORY Procedure Laterality Date - LAP CHOLECYSTECT/CHOLANGIOGRAP 02-10-08 Left elbow surgery Family history: Notable for his mother having bypass surgery in her 80s Social history: Patient denies any history of tobacco, alcohol or illicit substance use. Home Meds: None Current Facility-Administered Medications Medication Dose Route Frequency - NaCl 0.9% 3-5 mL 3-5 mL INTRAVENOUS q 12 H - lactated ringers infusion 75 mL/hr INTRAVENOUS CONTINUOUS - ondansetron 4 mg tab(s) (ZOFRAN) 4 mg ORAL q 6 H PRN Or - ondansetron (PF) 4 mg injection (ZOFRAN) 4 mg INTRAVENOUS q 6 H PRN - hydrOXYzine HCl 10 mg tab(s) (ATARAX) 10 mg ORAL q 6 H PRN - iv contrast (radiology procedure) INTRAVENOUS DIRECTED PRN - iv contrast (radiology procedure) INTRAVENOUS DIRECTED PRN And - enteric contrast (radiology procedure) ORAL DIRECTED PRN ALLERGIES No Known Allergies Review of Systems: General: Positive for 10-15 pound unintentional weight loss in the last month; Positive for malaise/fatigue; No fevers, chills, or night sweats HEENT: Negative for epistaxis Neck: Negative for pain and significant neck swelling Respiratory: Negative for cough, shortness of breath at rest or on exertion, wheezing Cardiac: Negative history of chest pain on exertion, dyspnea on exertion, orthopnea, paroxysmal nocturnal dyspnea, lower extremity edema, presyncope, syncope, or palpitations Gastrointestinal: Positive for mild abdominal pain, nausea, light colored stools; Negative history of vomiting, constipation, diarrhea, melena, or hematochezia Urinary: Positive for nocturia, dark colored urine; Negative history of dysuria, hematuria, or frequency Peripheral vascular: No claudication Musculoskeletal: Negative for joint aches/pain, neck pain, or back pain Neurologic: Negative history of dizziness/lightheadedness, vertigo, numbness/tingling of hands or feet Hematologic: Negative for easy bruising or easy bleeding. Endocrine: Negative history of obesity Skin: Negative history of rash and itching Other: The rest of the review of systems is unremarkable and negative or non-contributory Physical Examination: 09/02/19 1239 BP: 151/88 Pulse: 78 Resp: 16 Temp: 36.7 ?C (98.1 ?F) TempSrc: Axillary SpO2: 98% Weight: 72.1 kg (159 lb) Height: 172.7 cm (5' 8) Patient Vitals for the past 12 hrs: BP Temp Temp src Pulse Resp SpO2 Height Weight 09/02/19 1239 151/88 36.7 ?C (98.1 ?F) Axillary 78 16 98 % 172.7 cm (5' 8) 72.1 kg (159 lb) General appearance: Jaundiced appearing M, lying in bed, alert, appears to be in no acute distress, cooperative Head: Normocephalic, atraumatic HEENT: Extraocular movements intact; mucous membranes moist; no JVD Lungs: CTAB; no rales, rhonchi, or wheezes Heart: RRR; normal S1/S2; no murmurs/gallops/rubs Abdomen: Abdomen soft, non-distended, non-tender. NABS Extremities: No lower extremity edema bilaterally Skin: No rashes noted; jaundice noted Neurologic: Nonfocal Psych: Normal mood/affect DATA: Past 72 Hour Labs: Recent Labs 09/02/19 1400 NA 141 K 3.8 CA 8.9 BUN 8* CREAT 0.69* GLUC 135* WBC 5.81 HB 12.7* PLT 360 ALB 3.5* ALKPHOS 518* TBILI 5.6* AST 161* ALT 230* PTSEC 14.2* INR 1.32* InsANDOuts: No intake or output data in the 24 hours ending 09/02/19 1544 Last Lab Drawn: No results found for this basename: TSH,PROBNP,TG,HDL,LDL,CHOL CARDIAC WORKUP: EKG: OSH EKG, 09/02/2019 (personally reviewed): Normal sinus rhythm. Normal EKG. Echocardiogram: TTE within the last few months at [facility] which was unremarkable per patient report I personally reviewed patient's labs, EKG, and records from [facility]. AANDP: Mr. Vasquez is a 69 year old male with no significant past medical history who was transferred from [facility] due to findings of a pancreatic mass. Cardiology consulted for preoperative cardiac risk assessment. 1. Pre-operative cardiac assessment: Mr. Vasquez does not have any high-risk features of unstable angina, decompensated heart failure, severe valve disease, or malignant arrhythmias. His EKG reveals normal sinus rhythm without any ischemic changes. He also reports having had a recent echocardiogram (which has been requested from [facility]) which was reportedly unremarkable. In addition, he engages in at least 4 METS of physical activity without cardiac limitations. Assuming his records confirm unremarkable findings on his recent echocardiogram, no further cardiac evaluation would be necessary at this time and he would be at overall low risk of cardiac complications from an anticipated intermediate risk surgical procedure. He is not a candidate for ashley-operative beta blockade as it is contraindicated to start beta thierno therapy only a few days prior to surgery. 2. Elevated blood pressure without diagnosis of hypertension: - Patient found to have elevated blood pressure on admission but reports his blood pressure is typically well controlled. - Continue to monitor blood pressures while inpatient. Can consider starting antihypertensive medications if blood pressures remain consistently elevated 3. Pancreatic mass: Ongoing management by the primary service We will continue to follow with you. Please call if further ?s. SIGNATURE: Patrick Recinos MD PATIENT NAME: Moustapha Vasquez DATE: September 02, 2019 TIME: 3:44 PM PAGER/CONTACT #: [phone] [facility] CT CHEST W IVCONon 0 CT CHEST W IVCON * * *Final Report* * * DATE OF EXAM: Sep 02 2019 4:51PM [facility] 0539 - CT CHEST W IVCON / PROCEDURE REASON: Neoplasm: pancreas, staging * * * * Physician Interpretation * * * * EXAMINATION: CHEST CT WITH CONTRAST CLINICAL HISTORY: Neoplasm: pancreas, staging. Technique: Spiral CT acquisition of the chest from the thoracic inlet to the upper abdomen following IV contrast. MQ: CTCW_6 Contrast: 100 mL Omnipaque [address] Dose-Length Product: 540 mGy*cm CT Dose Reduction Employed: Automated exposure control(AEC) and iterative recon Comparison: None RESULT: Limitations: None. Lines, tubes, and devices: None. Lung parenchyma and airways: There is some bilateral platelike atelectasis right side greater than left involving the lower lobes. No consolidation. No suspicious pulmonary nodule. The central airways are patent. Pleural space: No pleural effusion. There is some right costophrenic angle pleural thickening adjacent to the platelike atelectasis. It measures 12 x 9 mm. No left pleural thickening. Lower neck, lymph nodes, and mediastinum: The imaged thyroid gland is normal. No lymphadenopathy in the supraclavicular, axillary, mediastinal, or hilar regions. Heart, pericardium, and thoracic vessels: The thoracic aorta and main pulmonary artery are normal in caliber. The left common carotid artery arises off the right brachiocephalic artery. The cardiac chambers are normal in size. Minimal scattered coronary artery atherosclerotic calcifications are noted, although the study is not optimized for coronary assessment. No pericardial effusion or thickening. Bones and soft tissues: No destructive bone lesion. Chest wall is unremarkable. Upper abdomen: Please refer to the CT scan of the abdomen and pelvis with attention to the pancreas obtained concurrently. IMPRESSION: There is some right costophrenic angle pleural thickening with a focal area measuring 12 x 9 mm. No other significant active disease is identified in the rest of the chest. Mathematics Faculty Member: PSCB Transcribe Date/Time: Sep 02 2019 6:30P Dictated by : ALAYNA BENJAMIN MD This examination was interpreted and the report reviewed and electronically signed by: ALAYNA BENJAMIN MD on Sep 02 2019 6:35PM EST Normal [facility] CT PANCREAS/PELVIS W IVCONon 09-02-2019 CT PANCREAS/PELVIS W IVCON * * *Final Report* * * DATE OF EXAM: Sep 02 2019 4:51PM [facility] 0553 - CT PANCREAS/PELVIS W IVCON / PROCEDURE REASON: Pancreatic adenocarcinoma suspected, dilated pancreatic and/or bile duct (strict * * * * Physician Interpretation * * * * EXAMINATION: CT ABDOMEN AND PELVIS WITH IV CONTRAST HISTORY: The patient is a 69-year-old male with jaundice and known pancreatic and biliary ductal dilation. Pancreatic carcinoma is suspected. TECHNIQUE: CT of the abdomen and pelvis with pancreatic protocol was performed using standard technique, scanning from just above the dome of the diaphragm to the symphysis pubis during arterial phase and portal venous phase. Images were reconstructed in sagittal and coronal planes during each phase. M: CTAP_1 Contrast: IV 100 cc of Omnipaque 300 CT Radiation dose: Integrated Dose-length product (DLP) for this visit = 540 mGy*cm. CT Dose Reduction Employed: Automated exposure control (AEC) was used. COMPARISON: Outside CT scan of the abdomen and outside MRI of the abdomen from September 01, 2019 RESULT: Liver: No mass. The liver is normal in size and density. Biliary: There is extensive intrahepatic biliary dilation with common bile duct is dilated to as much as 26 mm. It tapers abruptly in the lower pancreatic head near the ampulla. No intraluminal filling defects are identified. The gallbladder is absent. Spleen: No mass. No splenomegaly. Pancreas: There is dilation of the pancreatic duct throughout its length with proximal maximum diameter of 7 mm. There is some dilation of side branches in the body and tail of the pancreas. These are better appreciated on the outside MRI. A definite well-defined identifiable pancreatic head or ampullary mass is not appreciated. Adrenals: No mass. Kidneys: Normal in appearance GI tract: No dilation or wall thickening. There are some descending colon and proximal sigmoid diverticula without surrounding inflammation or focal wall thickening. The appendix is normal. Lymph nodes: There is a 23 x 11 mm lymph node anterior to the inferior vena cava at the level of the celiac axis and posterior to the portal vein. No other abdominal or pelvic lymphadenopathy. Mesentery/Peritoneum: No ascites or mass. Vasculature: The celiac axis and SMA are patent. There is no evidence of any soft tissue around the SMA or celiac arterial trunk and there is no soft tissue around the superior mesenteric vein. The portal vein and branches, splenic vein, SMV, and hepatic veins are patent. Pelvis: No mass, ascites or fluid collection. The prostate, seminal vesicles, and bladder are within normal limits. Bones/Soft Tissues: Within normal limits. Lower thorax: Please see the dictation of CT scan of the chest obtained concurrently. IMPRESSION: There is marked biliary dilatation and moderate pancreatic duct dilatation with the point of transition near the ampulla. A very small ampullary or pancreatic tumor. This site is suspected but not definitely visualized. There is one enlarged lymph node at the level of the celiac axis between the portal vein and inferior vena cava. No other suspicious lymphadenopathy is appreciated. There is no evidence of any metastatic disease in the liver. There is some colonic diverticulosis without evidence of diverticulitis. The gallbladder is absent. No other significant abdominal or pelvic abnormality is appreciated. Mathematics Faculty Member: LUIS Transcribe Date/Time: Sep 02 2019 6:39P Dictated by : ALAYNA BENJAMIN MD This examination was interpreted and the report reviewed and electronically signed by: ALAYNA BENJAMIN MD on Sep 02 2019 6:51PM EST Normal [facility] Comprehensive Metabolic Pane kendrick 09-02-2019 Albumin [Mass/Vol] 3.5 g/dL Low 3.9-4.9 [facility] Comment on above: Performed By: #### C MP #### [facility] [address] [place], [place] [address] ALP [Catalytic activity/Vol] 518 U/L High 38-113 [facility] Comment on above: Performed By: #### C MP #### [address] [address] ALT [Catalytic activity/Vol] 230 U/L High 10-54 [facility] Comment on above: Performed By: #### C MP #### [facility] [address] [place], [place] [address] Anion gap [Moles/Vol] 12 mmol/L Normal 9-18 [facility] Comment on above: Performed By: #### C MP #### [address] [address] AST [Catalytic activity/Vol] 161 U/L High 14-40 [facility] Comment on above: Performed By: #### C MP #### [facility] [address] [place], [place] [address] Bilirubin [Mass/Vol] 5.6 mg/dL High 0.2-1.3 [facility] Comment on above: Performed By: #### C MP #### [facility] [address] [place], [place] [address] Calcium [Mass/Vol] 8.9 mg/dL Normal 8.5-10.2 [facility] Comment on above: Performed By: #### C MP #### [address] [address] Chloride [Moles/Vol] 102 mmol/L Normal 97-105 [facility] Comment on above: Performed By: #### C MP #### [facility] [address] [place], [place] [address] CO2 Blood 27 mmol/L Normal 22-30 [facility] Comment on above: Performed By: #### C MP #### [facility] [address] [place], [place] [address] Creatinine [Mass/Vol] 0.69 mg/dL Low 0.73-1.22 [facility] Comment on above: Performed By: #### C MP #### [facility] [address] [place], [place] [address] Glucose [Mass/Vol] 135 mg/dL High 74-99 [facility] Comment on above: Result Comment: The [place] [employer] (ADA) provides guidance for cutoff values for fasting glucose and random glucose. The ADA defines fasting as no caloric intake for at least 8 hours.Fasting plasma glucose results between 100 to 125 mg/dL indicate increased risk for diabetes (prediabetes). Fasting plasma glucose results greater than or equal to 126 mg/dL meet the criteria for diagnosis of diabetes. In the absence of unequivocal hyperglycemia, results should be confirmed by repeat testing. In a patient with classic symptoms of hyperglycemia or hyperglycemic crisis, random plasma glucose results greater than or equal to 200 mg/dL meet the criteria for diagnosis of diabetes. Reference: Standards of Medical Care in Diabetes 2016; [place] [employer] Association. Diabetes Care. 2016;39(Suppl 1). Performed By: #### C MP #### [facility] [address] [place], [place] [address] Potassium [Moles/Vol] 3.8 mmol/L Normal 3.7-5.1 [facility] Comment on above: Performed By: #### C MP #### [facility] [address] [place], [place] [address] Protein [Mass/Vol] 6.6 g/dL Normal 6.3-8.0 [facility] Comment on above: Performed By: #### C MP #### [facility] [address] [place], [place] [address] Sodium [Moles/Vol] 141 mmol/L Normal 136-144 [facility] Comment on above: Performed By: #### C MP #### [facility] [address] [place], [place] [address] Urea nitrogen [Mass/Vol] 8 mg/dL Low 9-24 [facility] Comment on above: Performed By: #### C MP #### [facility] [address] [place], [place] [address] HISTORY PHYSICALon 0 HISTORY PHYSICAL HNO ID: [id number] Author: Moustapha Gasca MD Service: General Surgery Author Type: Resident Type: HANDP Filed: 09/02/2019 1:53 PM Note Text: -- Attestation signed by Margarita Castillo at 09/02/2019 5:06 PM Attending Note I personally saw and examined the patient. I reviewed the resident's note. I agree with the resident's assessment and plan with the following revisions and/or additions: Concern for pancreatic head mass. Will obtain CT scans to evaluate. Will need cardiac clearance for possible whipple operation Signature: Margarita Castillo MD Date: 09/02/2019 Time: 5:05 PM -- GENERAL SURGERY HANDP Pt: MOUSTAPHA VASQUEZ Date of Admission: 09/02/2019 Chief Complaint: Pancreatic mass HPI: 69 year old male presented to [facility] with a pancreatic mass. Patient originally presented to an outside hospital after experiencing 1 month of fatigue. Patient states they have lost roughly 12 pounds over the past 2 weeks. Endorses some nausea with no vomiting. States fatigue gets worse with exertion and he endorses some SOB. Visibly jaundiced on exam. Denies itching of the skin. Endorse some change in urine color over past few weeks and loss of appetite. Endorses change in stool color. Endorses history of cholycystectomy years ago. Workup at outside hospital demonstrated labs consistent with obstructive juandice and MRCP revealed a mass in the pancreatic head. PAST MEDICAL HISTORY Diagnosis Date - Acute cholecystitis PAST SURGICAL HISTORY Procedure Laterality Date - LAP CHOLECYSTECT/CHOLANGIOGRAP 02-10-08 Allergies: Patient has no known allergies. Current Facility-Administered Medications Medication Dose Route Frequency - NaCl 0.9% 3-5 mL 3-5 mL INTRAVENOUS q 12 H - lactated ringers infusion 75 mL/hr INTRAVENOUS CONTINUOUS - ondansetron 4 mg tab(s) (ZOFRAN) 4 mg ORAL q 6 H PRN Or - ondansetron (PF) 4 mg injection (ZOFRAN) 4 mg INTRAVENOUS q 6 H PRN No family history on file. Negative for family history of bleeding and clotting disorders. Social History Tobacco Use - Smoking status: Never Smoker Substance Use Topics - Alcohol use: Not on file - Drug use: Not on file ROS: 10 pt ROS neg except in HPI O: Vitals: BP 151/88 Pulse 78 Temp 36.7 ?C (98.1 ?F) (Axillary) Resp 16 Ht 172.7 cm (5' 8) Wt 72.1 kg (159 lb) SpO2 98% BMI 24.18 kg/m? Physical exam: General: AANDO x 3; NAD.Cooperative throughout entire interview Skin: Jaundiced Head: Atraumatic, Normocephalic Neck: Supple Chest: Unlabored breathing Cardiovascular: Strong pulses Abdomen: Soft, non-tender, non-distended Pelvis: Deferred Neuro: Grossly intact Secondary Survey: No TTP of any other bony prominences or joints of the upper and lower extremities bilaterally except that described above. Labs: BMP: Sodium 139 08/28/2003 Potassium 3.6 08/28/2003 Chloride 105 08/28/2003 CO2 23 08/28/2003 BUN 9 08/28/2003 Creatinine 0.9 08/28/2003 Glucose 127 08/28/2003 CBC: WBC 6.41 08/28/2003 Hemoglobin 12.9 08/28/2003 Hematocrit 37.1 08/28/2003 Platelet Count 243 08/28/2003 COAGS: APTT 24.9 08/28/2003 PT INR 1.1 08/28/2003 SED RATE/CRP: No results found for this basename: wsr:*,crp:* Imaging: - CT A/P concerning for mass within the pancreatic head, dilation of bile ducts and diffuse atrophy of pancreas. A/P: 69 year old male with a pancreatic mass - Admit to General Surgery - Management per general surgery - Diet: NPO until after imaging workup complete - Pain/nausea control - Atarax for itching prn - CMP, CBC, INR - will check CA-19-9 levels - CT C/A/P - Definitive management TBD pending workup - Plan discussed with Dr. Jonathan Gasca MD 09/02/2019 12:[address] [facility] HOSPon 09-02-2019 HOSP Patient:Moustapha Vasquez MRN: Height:5' 8(1.727 m) Weight:159 lb (72.122 kg) Outpatient Medications as of 09/04/19: Patient has no current outpatient medications. Admission/Clinic Administered Medications as of 09/04/19: diphenhydrAMINE 25 mg (BENADRYL) lactated ringers infusion ondansetron (PF) 4 mg injection (ZOFRAN) benzocaine-menthol 1 Lozenge (CEPACOL) melatonin 3 mg tab(s) acetaminophen 325 mg tab(s) (TYLENOL) morphine 2 mg injection NaCl 0.9% 3-5 mL ondansetron 4 mg tab(s) (ZOFRAN) ondansetron (PF) 4 mg injection (ZOFRAN) hydrOXYzine HCl 10 mg tab(s) (ATARAX) iv contrast (radiology procedure) dextrose 5% in LR infusion (D5-LR) Problem List: Closed dislocation of elbow [832.0] Laxity of ligament [M24.20] Pain in joint, upper arm [M25.529] Follow-up examination following surgery [V67.0] CHOLECYSTITIS SEE ALSO GALLBLADDER ACUTE WITH CALCULUS( Without obstruction) [K80.00] Pancreatic mass [K86.89] Allergies: No Known Allergies Date Verified:09/04/19 Lab Values Lab Value Units Date High Low POTA* 3.3 mmol/L 09/03/2019 5.1 3.7 IVY* 37.5 % 09/02/2019 51.0 40.1 Progress Notes (): Moustapha Gasca MD, 09/02/2019 1:53 PM Attested -- Attestation signed by Margarita Castillo at 09/02/2019 5:06 PM Attending Note I personally saw and examined the patient. I reviewed the resident's note. I agree with the resident's assessment and plan with the following revisions and/or additions: Concern for pancreatic head mass. Will obtain CT scans to evaluate. Will need cardiac clearance for possible whipple operation Signature: Margarita Castillo MD Date: 09/02/2019 Time: 5:05 PM -- GENERAL SURGERY HANDP Pt: MOUSTAPHA VASQUEZ Date of Admission: 09/02/2019 Chief Complaint: Pancreatic mass HPI: 69 year old male presented to [facility] with a pancreatic mass. Patient originally presented to an outside hospital after experiencing 1 month of fatigue. Patient states they have lost roughly 12 pounds over the past 2 weeks. Endorses some nausea with no vomiting. States fatigue gets worse with exertion and he endorses some SOB. Visibly jaundiced on exam. Denies itching of the skin. Endorse some change in urine color over past few weeks and loss of appetite. Endorses change in stool color. Endorses history of cholycystectomy years ago. Workup at outside hospital demonstrated labs consistent with obstructive juandice and MRCP revealed a mass in the pancreatic head. PAST MEDICAL HISTORY Diagnosis Date - Acute cholecystitis PAST SURGICAL HISTORY Procedure Laterality Date - LAP CHOLECYSTECT/CHOLANGIOGRAP 02-10-08 Allergies: Patient has no known allergies. Current Facility-Administered Medications Medication Dose Route Frequency - NaCl 0.9% 3-5 mL 3-5 mL INTRAVENOUS q 12 H - lactated ringers infusion 75 mL/hr INTRAVENOUS CONTINUOUS - ondansetron 4 mg tab(s) (ZOFRAN) 4 mg ORAL q 6 H PRN Or - ondansetron (PF) 4 mg injection (ZOFRAN) 4 mg INTRAVENOUS q 6 H PRN No family history on file. Negative for family history of bleeding and clotting disorders. Social History Tobacco Use - Smoking status: Never Smoker Substance Use Topics - Alcohol use: Not on file - Drug use: Not on file ROS: 10 pt ROS neg except in HPI O: Vitals: BP 151/88 Pulse 78 Temp 36.7 ?C (98.1 ?F) (Axillary) Resp 16 Ht 172.7 cm (5' 8) Wt 72.1 kg (159 lb) SpO2 98% BMI 24.18 kg/m? Physical exam: General: AANDO x 3; NAD.Cooperative throughout entire interview Skin: Jaundiced Head: Atraumatic, Normocephalic Neck: Supple Chest: Unlabored breathing Cardiovascular: Strong pulses Abdomen: Soft, non-tender, non-distended Pelvis: Deferred Neuro: Grossly intact Secondary Survey: No TTP of any other bony prominences or joints of the upper and lower extremities bilaterally except that described above. Labs: BMP: Sodium 139 08/28/2003 Potassium 3.6 08/28/2003 Chloride 105 08/28/2003 CO2 23 08/28/2003 BUN 9 08/28/2003 Creatinine 0.9 08/28/2003 Glucose 127 08/28/2003 CBC: WBC 6.41 08/28/2003 Hemoglobin 12.9 08/28/2003 Hematocrit 37.1 08/28/2003 Platelet Count 243 08/28/2003 COAGS: APTT 24.9 08/28/2003 PT INR 1.1 08/28/2003 SED RATE/CRP: No results found for this basename: wsr:*,crp:* Imaging: - CT A/P concerning for mass within the pancreatic head, dilation of bile ducts and diffuse atrophy of pancreas. A/P: 69 year old male with a pancreatic mass - Admit to General Surgery - Management per general surgery - Diet: NPO until after imaging workup complete - Pain/nausea control - Atarax for itching prn - CMP, CBC, INR - will check CA-19-9 levels - CT C/A/P - Definitive management TBD pending workup - Plan discussed with Dr. Jonathan Gasca MD 09/02/2019 12:58 PM Previous Version Patrick Recinos MD 09/02/2019 3:55 PM Signed CONSULT: CARDIOLOGY SERVICE SERVICE DATE: 09/02/2019 CONSULTING PHYSICIAN: Patrick Recinos MD PCP: Nurys Hutchinson MD ATTENDING: Margarita Castillo REASON FOR CONSULT: Pre-operative cardiac risk assessment Subjective CHIEF COMPLAINT: Pancreatic mass [K86.89] HISTORY OF PRESENT ILLNESS: Mr. Vasquez is a 69 year old male with no significant past medical history who was transferred from [facility] due to findings of a pancreatic mass. Cardiology consulted for preoperative cardiac risk assessment. Patient reports that for the last month, he is experiencing symptoms of fatigue and developed decreased appetite, mild abdominal pain after eating, nausea, nocturia, light colored stools and dark colored urine in the last couple weeks. In addition, he reported 10-15 pound unintentional weight loss in the last month. Given his symptoms, he went to [facility] with workup revealing findings consistent with obstructive jaundiced an MRCP revealing a mass in the pancreatic head. As a result, he was transferred to [facility] for evaluation for surgery. In discussion with the patient, he denies any cardiac complaints. He specifically denies any complaints of exertional chest pain, dyspnea on exertion, orthopnea, paroxysmal nocturnal dyspnea, lower extremity edema, presyncope, syncope, or palpitations. He reports that he exercises on a regular basis and was doing a high intensity exercise routine on a [employer] for 10-20 minutes daily without limitations. 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 Patient does report he had cardiac evaluation a few months ago at [facility] with an echocardiogram which was unremarkable per his report. PAST MEDICAL HISTORY Diagnosis Date - Acute cholecystitis PAST SURGICAL HISTORY Procedure Laterality Date - LAP CHOLECYSTECT/CHOLANGIOGRAP 02-10-08 Left elbow surgery Family history: Notable for his mother having bypass surgery in her 80s Social history: Patient denies any history of tobacco, alcohol or illicit substance use. Home Meds: None Current Facility-Administered Medications Medication Dose Route Frequency - NaCl 0.9% 3-5 mL 3-5 mL INTRAVENOUS q 12 H - lactated ringers infusion 75 mL/hr INTRAVENOUS CONTINUOUS - ondansetron 4 mg tab(s) (ZOFRAN) 4 mg ORAL q 6 H PRN Or - ondansetron (PF) 4 mg injection (ZOFRAN) 4 mg INTRAVENOUS q 6 H PRN - hydrOXYzine HCl 10 mg tab(s) (ATARAX) 10 mg ORAL q 6 H PRN - iv contrast (radiology procedure) INTRAVENOUS DIRECTED PRN - iv contrast (radiology procedure) INTRAVENOUS DIRECTED PRN And - enteric contrast (radiology procedure) ORAL DIRECTED PRN ALLERGIES No Known Allergies Review of Systems: General: Positive for 10-15 pound unintentional weight loss in the last month; Positive for malaise/fatigue; No fevers, chills, or night sweats HEENT: Negative for epistaxis Neck: Negative for pain and significant neck swelling Respiratory: Negative for cough, shortness of breath at rest or on exertion, wheezing Cardiac: Negative history of chest pain on exertion, dyspnea on exertion, orthopnea, paroxysmal nocturnal dyspnea, lower extremity edema, presyncope, syncope, or palpitations Gastrointestinal: Positive for mild abdominal pain, nausea, light colored stools; Negative history of vomiting, constipation, diarrhea, melena, or hematochezia Urinary: Positive for nocturia, dark colored urine; Negative history of dysuria, hematuria, or frequency Peripheral vascular: No claudication Musculoskeletal: Negative for joint aches/pain, neck pain, or back pain Neurologic: Negative history of dizziness/lightheadedness, vertigo, numbness/tingling of hands or feet Hematologic: Negative for easy bruising or easy bleeding. Endocrine: Negative history of obesity Skin: Negative history of rash and itching Other: The rest of the review of systems is unremarkable and negative or non-contributory Physical Examination: 09/02/19 1239 BP: 151/88 Pulse: 78 Resp: 16 Temp: 36.7 ?C (98.1 ?F) TempSrc: Axillary SpO2: 98% Weight: 72.1 kg (159 lb) Height: 172.7 cm (5' 8) Patient Vitals for the past 12 hrs: BP Temp Temp src Pulse Resp SpO2 Height Weight 09/02/19 1239 151/88 36.7 ?C (98.1 ?F) Axillary 78 16 98 % 172.7 cm (5' 8) 72.1 kg (159 lb) General appearance: Jaundiced appearing M, lying in bed, alert, appears to be in no acute distress, cooperative Head: Normocephalic, atraumatic HEENT: Extraocular movements intact; mucous membranes moist; no JVD Lungs: CTAB; no rales, rhonchi, or wheezes Heart: RRR; normal S1/S2; no murmurs/gallops/rubs Abdomen: Abdomen soft, non-distended, non-tender. NABS Extremities: No lower extremity edema bilaterally Skin: No rashes noted; jaundice noted Neurologic: Nonfocal Psych: Normal mood/affect DATA: Past 72 Hour Labs: Recent Labs 09/02/19 1400 NA 141 K 3.8 CA 8.9 BUN 8* CREAT 0.69* GLUC 135* WBC 5.81 HB 12.7* PLT 360 ALB 3.5* ALKPHOS 518* TBILI 5.6* AST 161* ALT 230* PTSEC 14.2* INR 1.32* InsANDOuts: No intake or output data in the 24 hours ending 09/02/19 1544 Last Lab Drawn: No results found for this basename: TSH,PROBNP,TG,HDL,LDL,CHOL CARDIAC WORKUP: EKG: OSH EKG, 09/02/2019 (personally reviewed): Normal sinus rhythm. Normal EKG. Echocardiogram: TTE within the last few months at [facility] which was unremarkable per patient report I personally reviewed patient's labs, EKG, and records from [facility]. AANDP: Mr. Vasquez is a 69 year old male with no significant past medical history who was transferred from [facility] due to findings of a pancreatic mass. Cardiology consulted for preoperative cardiac risk assessment. 1. Pre-operative cardiac assessment: Mr. Vasquez does not have any high-risk features of unstable angina, decompensated heart failure, severe valve disease, or malignant arrhythmias. His EKG reveals normal sinus rhythm without any ischemic changes. He also reports having had a recent echocardiogram (which has been requested from [facility]) which was reportedly unremarkable. In addition, he engages in at least 4 METS of physical activity without cardiac limitations. Assuming his records confirm unremarkable findings on his recent echocardiogram, no further cardiac evaluation would be necessary at this time and he would be at overall low risk of cardiac complications from an anticipated intermediate risk surgical procedure. He is not a candidate for ashley-operative beta blockade as it is contraindicated to start beta thierno therapy only a few days prior to surgery. 2. Elevated blood pressure without diagnosis of hypertension: - Patient found to have elevated blood pressure on admission but reports his blood pressure is typically well controlled. - Continue to monitor blood pressures while inpatient. Can consider starting antihypertensive medications if blood pressures remain consistently elevated 3. Pancreatic mass: Ongoing management by the primary service We will continue to follow with you. Please call if further ?s. SIGNATURE: Patrick Recinos MD PATIENT NAME: Moustapha Vasquez DATE: September 02, 2019 TIME: 3:44 PM PAGER/CONTACT #: [phone] Chaplain Pa 09/02/2019 4:31 PM Addendum SPIRITUAL CARE PROGRESS NOTE SERVICE DATE: 09/02/2019 SERVICE TIME: 4:00 PM As a director product safety responded to Consult Requisition for PT. Actively listened to PT, connected PT with his ganga, and prayed with PT. To contact the Spiritual Care Department: Please call [phone]. SIGNATURE: Chaplain Pa PATIENT NAME: Moustapha Vasquez DATE: September 02, 2019 TIME: 3:55 PM PAGER/CONTACT #: [phone] Previous Version Sosa Jean RN, RN 09/02/2019 4:08 PM Addendum CARE MANAGEMENT: ASSESSMENT AND DISCHARGE PLAN SERVICE DATE: September 02, 2019 SERVICE TIME: 3:56 PM PRIMARY CARE PHYSICIAN: Dr. Anjelica Mendoza -Confirmed with patient -Admitting notified ADMISSION STATUS: Inpatient Needs Prior to Discharge: To Be Determined;Pharmacy Bedside Delivery MEDICAL: Medicare -Admitting notified -Patient unsure if he has Rx coverage. Will follow. Patient/Pit Recorder Stated Goals: To return home to life as it was Health Insurance: Medicare Health Issues Impacting Discharge Plan: Newly diagnosed Newly Diagnosed: Pancreatic mass Last Discharge Date: N/A Is this Within the Past 30 days? Last discharge within 30 days: No Advance Directive: Current Advance Directive: None Quarter Inspector Attempted to Assist with AD Completion: Yes Action: Patient Unwilling Health LiteracyHow often do you need to have someone help you when you read instructions, pamphlets, or other written material from your doctor or pharmacy? : 1 - Never How confident are you filling out medical forms by yourself?: 1 - Extremely If Patient scores > 3 on either question, the following interventions were put into place:: Patient did not score > 3 on either question. Baseline Mental Status Prior to this Illness what was the patient's Baseline Mental Status?: Alert AND Oriented Prior to this illness, has anyone described the patient having any of the following behaviors?: Not Applicable Relationship of the informant to the patient:: Self Functional Status: Independent Does Patient Currently Receive Any Community Services or Home Care?: None Equipment Prior to Admission: None SOCIAL: Living Arrangements: Home Lives With: Alone Financial Resources: EmployedPrimary Contact: Shiva Vasquez Relation: Son Phone number: [phone] Supportive Patient Contact:: Yes Contact Resources: Family Social Needs Food insecurity Worry: Never true Inability: Never true Resources Needed: No Social Needs Financial resource strain: Not hard at all Social Needs Transportation needs Medical: No Non-medical: No Caregiver AssessmentCaregiver is ready, willing and able to meet the patient's needs as recommended by the inter-professional team:: Yes Does the patient have an acute stroke diagnosis, or has the patient had a stroke during this admission?: No Patient's transition needs and plan for meeting these needs: To be determined. Will follow. 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 Yes Is Patient Psychosocially Complex?: Yes, refer to Social Work ASSESSMENT AND PLAN: Medical Needs: Medical Needs: None Psychosocial Needs: Psychosocial Needs: Other: See Comment(Depression Screen. Social work consulted.) FREEDOM OF CHOICE EXPLAINED: [place] of Choice Given: No Reason Not Given: No placements necessary at this time POTENTIAL TRANSITION PLANS To Be Determined Chart reviewed. Spoke with patient at the bedside. Patient independent at home alone prior to admission. Patient hopeful to return home at discharge once medically stable. Social work consulted for complex psychosocial needs. Will follow clinical course for DC planning needs. SIGNATURE: Sosa Jean RN PATIENT NAME: Moustapha Vasquez DATE: September 02, 2019 TIME: 3:56 PM PAGER/CONTACT #: [phone] Previous Version Nicole Kwok (Forest Pathologist) 09/02/2019 4:34 PM Addendum PASTA PRESS OPERATOR BEDSIDE DELIVERY SURVEY 1. Patient to use [facility] Bedside Delivery - YES Insurance Information as follows: 2. Insurance card on file - NO 3. Credit card for payment - N/A Patient elected to use bedside delivery. No prescriptions currently written. Please call pharmacy bedside delivery at [phone] or [phone] when patient has discharge orders and prescriptions are ready to be filled and delivered prior to discharge. Thank you. Nicole Kwok (Forest Pathologist) Previous Version Virginie Moss MD, MD 09/03/2019 8:23 AM Attested -- Attestation signed by Margarita Castillo at 09/03/2019 10:26 AM Attending Note I personally saw and examined the patient. I reviewed the resident's note. I agree with the resident's assessment and plan with the following revisions and/or additions: Await EUS today. CT did not show a distinct mass. Biliribun higher today. Signature: Margarita Castillo MD Date: 09/03/2019 Time: 10:25 AM -- Elective General Surgery Progress Note SERVICE DATE: 09/03/2019 Elective General Surgery Service Pager: For questions or concerns Mon-Fri 6a-5p please page [phone]. After 5pm and on Weekends and Holidays, please page [phone] if in ICU or [phone] if on RNF. SUBJECTIVE: NAEON. Denies fevers, chills, CP, SOB, headache, cough, muscle weakness, numbness, urinary difficulty, or any other complaints this AM. Tolerating diet DIET NPO Nausea No Emesis No Flatus Yes Bowel movement Yes Pain Controlled Yes Ambulating Yes OBJECTIVE: Vitals: Temp (24hrs), Av.6 ?C (97.8 ?F), Min:36.4 ?C (97.5 ?F), Max:36.7 ?C (98.1 ?F) BP 138/93 Pulse 83 Temp 36.4 ?C (97.5 ?F) (Temporal) Resp 16 Ht 172.7 cm (5' 8) Wt 72.1 kg (159 lb) SpO2 99% BMI 24.18 kg/m? O2 Therapy: Room Air IANDO: Date 09/02/19699 - 09/03/1965809/03/19699 - 09/04/19 0659 Shift 6287-6594 7122-3197 3650-6449 24 Hour Total 4284-9294 1929-5041 7796-1270 24 Hour Total INTAKE PO 200 200 PO 200 200 Shift Total 200 200 OUTPUT Urine Urine Not Saved. 1 x 1 x Shift Total Weight (kg) 72.1 72.1 72.1 72.1 72.1 72.1 72.1 72.1 MEDICATIONS Current Facility-Administered Medications Medication Dose Route Frequency - NaCl 0.9% 3-5 mL 3-5 mL INTRAVENOUS q 12 H - ondansetron 4 mg tab(s) (ZOFRAN) 4 mg ORAL q 6 H PRN Or - ondansetron (PF) 4 mg injection (ZOFRAN) 4 mg INTRAVENOUS q 6 H PRN - hydrOXYzine HCl 10 mg tab(s) (ATARAX) 10 mg ORAL q 6 H PRN - iv contrast (radiology procedure) INTRAVENOUS DIRECTED PRN - iv contrast (radiology procedure) INTRAVENOUS DIRECTED PRN And - enteric contrast (radiology procedure) ORAL DIRECTED PRN - dextrose 5% in LR infusion (D5-LR) 75 mL/hr INTRAVENOUS CONTINUOUS Labs: Recent Labs 09/02/19 1400 NA 141 K 3.8 CHLOR 102 CO2 27 BUN 8* CREAT 0.69* GLUC 135* ANION 12 CA 8.9 ALB 3.5* AST 161* ALT 230* ALKPHOS 518* TBILI 5.6* WBC 5.81 HB 12.7* HCT 37.5* PLT 360 INR 1.32* Exam: GENERAL: resting comfortably, in no acute distress HEENT: normocephalic, atraumatic, EOMI NECK: trachea midline, no JVD LUNGS: Unlabored breathing, equal chest rise bilaterally CARDIAC: Regular rate and rhythm as above ABDOMEN: Soft, non-tender, non-distended, no masses or organomegaly EXTREMITIES: COY, No deformities, No edema SKIN: Skin color, texture, turgor normal, No rashes or lesions NEURO: AANDOx3, CN II-XII grossly intact PSYCH: normal mood and affect ASSESSMENT AND PLAN: Active Hospital Problems Diagnosis Date Noted - Pancreatic mass 09/02/2019 69 year old male admitted for CT A/P concerning for mass within the pancreatic head, dilation of bile ducts and diffuse atrophy of pancreas. - Diet: NPO - Plan for EUS today - Pain and nausea control - PRN atarax - Trend LFTs - DVT PPx: LVX - Encourage ambulation, IS Staff Surgeon: Dr. Castillo SIGNATURE: Virginie Moss MD PATIENT NAME: Moustapha Vasquez DATE: September 03, 2019 TIME: 8:20 AM Pager: see below Elective General Surgery Service Pager: For questions or concerns Mon-Fri 6a-5p please page [phone]. After 5pm and on Weekends and Holidays, please page [phone]. Susana Brown, PLYCOR OPERATOR.FACILITIES AND GROUNDS DIRECTOR 09/03/2019 9:54 AM Signed CONSULT: GI SERVICE SERVICE DATE: 09/03/2019 SERVICE TIME: 8:55 am REASON FOR CONSULT: EUS REQUESTING PHYSICIAN: surgery PRIMARY CARE PHYSICIAN: Anjelica Mendoza MD Subjective Mr. Vasquez is a 69 year old male who presents from [facility] as transfer for pancreatic mass. PMHx of acute cholecystitis s/p lap joshua 2007. GI was consulted for EUS. Patient reports fatigues, loss of appetite and weight loss for 2 weeks. He states that he was also told that he is jaundice at [place]. He does c/o shortness of breath with activity as well. He denies any fever, no chest pain and no shortness of breath at rest. He did have workup done at [place] for obstructive jaundice and MRCP showed a mass in the pancreatic head so patient was transferred to [facility] under general surgery. He does not take OAC. INR 1.39. T bili 5.8 today with elevation in AST, ALT and alk phos as well. Vital signs stable and he is afebrile with no leukocytosis. CT pancrease and pelvis done showing marked biliary dilatation and moderate pancreatic duct dilatation with the point of transition near the ampulla. Patient is NPO at this time. He has no additional GI complaints. FUNCTIONAL STATUS: Independent PAST MEDICAL HISTORY Diagnosis Date - Acute cholecystitis PAST SURGICAL HISTORY Procedure Laterality Date - LAP CHOLECYSTECT/CHOLANGIOGRAP 02-10-08 No family history on file. Social History Tobacco Use - Smoking status: Never Smoker Substance Use Topics - Alcohol use: Not on file - Drug use: Not on file No medications prior to admission. Current Facility-Administered Medications Medication Dose Route Frequency - NaCl 0.9% 3-5 mL 3-5 mL INTRAVENOUS q 12 H - ondansetron 4 mg tab(s) (ZOFRAN) 4 mg ORAL q 6 H PRN Or - ondansetron (PF) 4 mg injection (ZOFRAN) 4 mg INTRAVENOUS q 6 H PRN - hydrOXYzine HCl 10 mg tab(s) (ATARAX) 10 mg ORAL q 6 H PRN - iv contrast (radiology procedure) INTRAVENOUS DIRECTED PRN - iv contrast (radiology procedure) INTRAVENOUS DIRECTED PRN And - enteric contrast (radiology procedure) ORAL DIRECTED PRN - dextrose 5% in LR infusion (D5-LR) 75 mL/hr INTRAVENOUS CONTINUOUS Allergies As of Date: 09/02/2019 (No Known Allergies) Fully Assessed 09/02/2019 COMPLETE REVIEW OF SYSTEMS: PAIN ASSESSMENT: has right upper abdominal pain after eating at times GENERAL: Unintentional weight loss, Fatigue, Negative for malaise RESPIRATORY: Negative for cough, hemoptysis, wheezing, COPD, dyspnea or shortness of breath CARDIOVASCULAR: Negative for chest pain, leg swelling, hypertension, CHF or palpitations GI: Positive for abdominal discomfort general , anorexia for 2 weeks : Negative SKIN: Positive for yellow skin per patient HEMATOLOGY/LYMPHOLOGY: Negative for prolonged bleeding, bruising easily or swollen nodes ENDOCRINE: Negative for cold or heat intolerance, polyuria, polydipsia and goiter Objective PHYSICAL EXAM: Physical Exam Performed: GENERAL: Alert, no distress, cooperative SKIN: Positive findings: Jaundice OROPHARYNX: Lips, mucosa, and tongue normal. Teeth and gums normal. Oropharynx normal. LUNGS: Lungs clear to auscultation, Good diaphragmatic excursion CARDIAC: Normal S1 and S2; no rubs, murmurs, or gallops ABDOMEN: abdomen soft with left upper mild tenderness with palpation, no rebound tenderness or rigidity EXTREMITIES: Normal exam of the extremities PULSES: 2+ radial, 2+ dorsalis pedis The remainder of the physical exam is noncontributory. BP 146/83 Pulse 66 Temp (Src) 98.4 (Oral) Resp 16 Ht 5' 8 (1.73m) Wt 159 lb (72.1kg) SpO2 100% BMI 24.18 kg/(m2). O2 Therapy: Room Air DATA: Diagnostic tests reviewed for today's visit: Most recent labs and imaging results. WBC (thou/cmm) Date Value 09/02/2019 5.81 RBC (mil/cmm) Date Value 09/02/2019 3.77 (L) Hemoglobin (g/dL) Date Value 08/28/2003 12.9 (A) HGB (g/dL) Date Value 09/02/2019 12.7 (L) Hematocrit (%) Date Value 09/02/2019 37.5 (L) MCV (fl) Date Value 09/02/2019 99.5 (H) MCH (pg) Date Value 09/02/2019 33.7 (H) MCHC (%) Date Value 09/02/2019 33.9 RDW-CV (%) Date Value 08/28/2003 13.0 Platelet Count (thou/cmm) Date Value 09/02/2019 360 MPV (fl) Date Value 09/02/2019 9.2 Glucose (mg/dL) Date Value 09/03/2019 122 (H) BUN (mg/dL) Date Value 09/03/2019 5 (L) Creatinine (mg/dL) Date Value 09/03/2019 0.65 (L) Sodium (mmol/L) Date Value 09/03/2019 138 Potassium (mmol/L) Date Value 09/03/2019 3.3 (L) Chloride (mmol/L) Date Value 09/03/2019 102 CO2 (mmol/L) Date Value 09/03/2019 25 Protein, Total (g/dL) Date Value 09/03/2019 6.2 (L) Albumin (g/dL) Date Value 09/03/2019 3.3 (L) Calcium (mg/dL) Date Value 09/03/2019 8.7 Alkaline Phosphatase (U/L) Date Value 09/03/2019 495 (H) Bilirubin, Total (mg/dL) Date Value 09/03/2019 5.9 (H) AST (U/L) Date Value 09/03/2019 178 (H) ALT (U/L) Date Value 09/03/2019 228 (H) CA -19-9 - pending URINALYSIS No results found for: PH, SPGR, UGLUC, UBILI, UKET, UHB, UPROT, UROBIL, UWBC, SSA CT Pancrease and pelvis W IVCON 09/02/19 IMPRESSION: There is marked biliary dilatation and moderate pancreatic duct dilatation with the point of transition near the ampulla. A very small ampullary or pancreatic tumor. This site is suspected but not definitely visualized. There is one enlarged lymph node at the level of the celiac axis between the portal vein and inferior vena cava. No other suspicious lymphadenopathy is appreciated. There is no evidence of any metastatic disease in the liver. There is some colonic diverticulosis without evidence of diverticulitis. The gallbladder is absent. No other significant abdominal or pelvic abnormality is appreciated. Biliary: There is extensive intrahepatic biliary dilation with common bile duct is dilated to as much as 26 mm. It tapers abruptly in the lower pancreatic head near the ampulla. ?No intraluminal filling defects are identified. The gallbladder is absent. Pancreas: There is dilation of the pancreatic duct throughout its length with proximal maximum diameter of 7 mm. There is some dilation of side branches in the body and tail of the pancreas. These are better appreciated on the outside MRI. A definite well-defined identifiable pancreatic head or ampullary mass is not appreciated. CT chest 09/02/19 IMPRESSION: There is some right costophrenic angle pleural thickening with a focal area measuring 12 x 9 mm. No other significant active disease is identified in the rest of the chest. Impression/Recommendations Active Problems: 69 yo male with 2 weeks of abdominal pain, loss of appetite and weight loss and fatigue who was transferred from [facility] for pancreatic mass. He had workup for obstructive jaundice with MRCP that revealed pancreatic mass. 1. Suspect pancreatic mass with biliary and pancreatic duct dilation - seen on CT pancrease and pelvis done 09/01 with results above. T bili 5.9 today with elevated alt, ast and alk phos. INR 1.32. patient was admitted to surgery for this and GI was consulted for EUS. Patient is NPO and agreeable to EUS today with Dr. Acevedo. - monitor LFT's - INR 1.39 - NPO - CA 19-9 pending - EUS today with Dr. Acevedo - surgery following 2. [place] with elevated LFT's - likely related to #1. T bili 5.9 today, alk phos 495, ALT [address] abdomen and pelvis with results as above. Patient c/o fatigue, weight loss, jaundice and mild abdominal pain at times for 2 weeks. S/p cholecystectomy some years ago per patient - Monitor LFT's - CT pancrease and pelvis done - CT chest done - NPO - EUS today - pain and nausea control per primary team EUS today with Dr. Acevedo GI will follow SIGNATURE: Susana Brown APRN.FACILITIES AND GROUNDS DIRECTOR PATIENT NAME: Moustapha Vasquez DATE: September 03, 2019 TIME: 9:18 AM PAGER: [phone] Libia Lovell RN, RN 09/03/2019 9:52 AM Signed PRE OP LEARNING ASSESSMENT PROCEDURE/SURGERY: GI PROCEDURES: EUS READINESS TO LEARN COGNITIVE ABILITY: Alert and oriented MOTIVATION TO LEARN: Interested FAMILY SUPPORT: None - Unavailable/disinterested PATIENT LEARNS BEST BY: Individual Instruction FACTORS AFFECTING LEARNING: None PHYSICAL LIMITATIONS AFFECTING LEARNING: None Electronically Signed By: Libia Lovell RN In Department: ELLY Walter MD 09/03/2019 10:45 AM Signed ANESTHESIOLOGY DAY OF SURGERY NOTE SERVICE DATE: 09/03/2019 SERVICE TIME: 1020 : 1950 Procedure(s) (LRB): ENDOSCOPY UPPER GI W/ ENDOSCOPIC ULTRASOUND EXAMINATION, (Left) Surgeon(s): Pily Acevedo Estimated body mass index is 24.18 kg/m? as calculated from the following: Height as of this encounter: 172.7 cm (5' 8). Weight as of this encounter: 72.1 kg (159 lb). Most recent hematocrit and potassium results: Hematocrit 37.5 09/02/2019 Potassium 3.3 09/03/2019 ANES DOS/PREOP NOTE: Vitals: 09/02/19 1547 09/02/19 1924 09/03/19 0800 09/03/19 0955 BP: 154/92 138/93 146/83 155/85 Pulse: 85 83 66 82 Resp: 16 16 16 16 Temp: 36.4 ?C (97.5 ?F) 36.9 ?C (98.4 ?F) TempSrc: Temporal Oral SpO2: 100% 99% 100% 97% Weight: Height: ACTIVE PROBLEM LIST Closed Dislocation of Elbow Laxity of Ligament Pain in Joint, Upper Arm Follow-Up Examination Following Surgery CHOLECYSTITIS SEE ALSO GALLBLADDER ACUTE WITH CALCULUS( Without obstruction) Pancreatic Mass PAST MEDICAL HISTORY Diagnosis Date - Acute cholecystitis PAST SURGICAL HISTORY Procedure Laterality Date - LAP CHOLECYSTECT/CHOLANGIOGRAP 02-10-08 - UPPER ARM/ELBOW SURGERY UNLISTED Left pin No family history on file. Social History: Social History Tobacco Use - Smoking status: Never Smoker - Smokeless tobacco: Never Used Substance Use Topics - Alcohol use: Not Currently - Drug use: Never No current facility-administered medications on file prior to encounter. No current outpatient medications on file prior to encounter. Current Facility-Administered Medications Medication Dose Route Frequency Provider Last Rate Last Dose - lactated ringers infusion 5-30 mL/hr INTRAVENOUS CONTINUOUS Aijaz Kristina 30 mL/hr at 09/03/19 1000 30 mL/hr at 09/03/19 1000 - [MAR Hold due to Transfer] NaCl 0.9% 3-5 mL 3-5 mL INTRAVENOUS q 12 H Moustapha Gasca MD 3 mL at 09/02/19 1248 - [MAR Hold due to Transfer] ondansetron 4 mg tab(s) (ZOFRAN) 4 mg ORAL q 6 H PRN Moustapha Gasca MD Or - [MAR Hold due to Transfer] ondansetron (PF) 4 mg injection (ZOFRAN) 4 mg INTRAVENOUS q 6 H PRN Moustapha Gasca MD 4 mg at 09/02/19 1936 - [MAR Hold due to Transfer] hydrOXYzine HCl 10 mg tab(s) (ATARAX) 10 mg ORAL q 6 H PRN Moustapha Gasca MD - [MAR Hold due to Transfer] iv contrast (radiology procedure) INTRAVENOUS DIRECTED PRBebe Hancock MD - [MAR Hold due to Transfer] iv contrast (radiology procedure) INTRAVENOUS DIRECTED PRBebe Hancock MD And - [MAR Hold due to Transfer] enteric contrast (radiology procedure) ORAL DIRECTED PRBebe Hancock MD - [MAR Hold due to Transfer] dextrose 5% in LR infusion (D5-LR) 75 mL/hr INTRAVENOUS CONTINUOUS Julio (Res) MD Santi 75 mL/hr at 09/02/192099 75 mL/hr at 09/02/192099 Allergies: ALLERGIES No Known Allergies DOS EXAM: Adequate NPO status: Yes Anesthetic risks, benefits, alternatives, personnel and consent discussed: Yes Patient agrees to proceed: Yes Previous Anesthesia: No history of adverse event. Airway Assessment: MP 2; Neck ROM: Full ROM without neurologic symptoms; Airway Evaluation: No significant abnormalities Symptoms of Sleep Apnea: None Dentition: Teeth intact Additional Physical Exam: Lungs: Patient health status unchanged since recent history and physical. See history and physical for exam findings. Cardiac: Patient health status unchanged since recent history and physical. See history and physical for exam findings. Additional Pertinent Findings: N/A Blood Products: Not anticipated for this procedure. Anesthetic Plan: MAC with Sedation and Standard ASA Monitors Pain Management Plan: Parenteral or Oral ASA Class: 3 Other Medical Problems: None Chronic Beta Thierno medication administered within 24 hours: N/A I have interviewed and examined the patient. I have reviewed the medical record and/or the pre-anesthesia evaluation, pertinent labs, and test results. Significant changes in the patient's condition since the History and Physical, not otherwise documented in primary service progress notes: No This contains updated information obtained within 48 hours of Surgery/Procedure. SIGNATURE: Cecil Walter MD PATIENT NAME: Moustapha Vasquez DATE: September 03, 2019 TIME: 10:44 AM CSN: [id number] Pily Acevedo MD 09/03/2019 1:23 PM Signed OPERATIVE/PROCEDURE REPORT LOG ID: [id number] Surgery/Procedure Date: 09/03/2019 Incision/Procedure Start Time: 11:46 AM Incision Close/Procedure End Time: Surgeon(s)/Proceduralist(s ) and Bag Sewer(s): Surgeon(s) and Role: * Pily Acevedo - Primary No Additional Staff Procedure(s): Endoscopic Ultrasound (EUS) and Fine Needle Aspiration (FNA) Esophagogastroduodenoscopy (EGD) Anesthesia: Monitored Anesthesia Care Brief History: 69/M, admitted with jaundice with CT-scan showing dilated CBD and PD, however, no mass seen on CT-scan Procedure Details: The patient was placed in the left lateral decubitus position. A bite block was placed and medications administered as above. The Olympus gastroscope was used to intubate the oropharynx and esophagus with ease. We proceeded down to the second part of the duodenum. The duodenal mucosa and bulb appeared normal. We then withdrew into the stomach and visualized a normal antrum and body. Retroflexion was performed and this showed a normal fundus and cardia. The squamocolumnar junction, GE junction and esophagus appeared normal. The scope was then withdrawn and the patient tolerated the procedure well. With the patient in the same position, the Olympus radial echoendoscope was then used to intubate the oropharynx and esophagus with ease. We proceeded down to the posterior aspect of the gastric body. Esophagus and stomach- normal CBD and GB- normal Pancreas- abnormal, mass in the head of pancreas Liver- normal Left kidney and adrenal- normal The aorta and celiac artery takeoff were visualized. The splenic vasculature appeared normal. The pancreatic parenchyma was visualized and had normal echogenicity in the body and tail. The pancreatic duct in the body was dilated and measured 5 mm. There is no evidence of cystic structures, masses or chronic pancreatitis. The pancreatic parenchyma was scanned down to the tail and appeared normal. We then advanced the scope to the duodenal bulb. The CBD was dilated to 1.57 cm with no evidence of intraductal stones. A normal stack sign was seen with normal portal vein, pancreatic duct and CBD. The scope was advanced to the second part of the duodenum. The ampullary view appeared normal. Mass seen in head of pancreas, size 2.4 cm x 2.17 cm. Mass as not invading portal vein or other major vessels. Using Sharkcore 22 G needle, 7 passes made into the mass and tissue obtained. On site kaiako kura tuarua confirmed adequate tissue sample. In addition, one per-pancreatic lymph node seen, size 1 cm- FNA obtained. The scope was then withdrawn and the patient tolerated the procedure well. Pre-Op/Pre-Procedure Diagnosis: Suspected pancreatic mass Post-Op/Post-Procedure Diagnosis: Mass in head of pancreas FNA obtained Dilated PD and CBD Specimens: see above EBL: None Complications: None Recommendations: Monitor for GI bleeding, acute pancreatitis or GI perforation Follow up pathology/cytology ERCP in AM No qualified resident/fellow was available. Pily Acevedo MD SIGNATURE: Pily Acevedo MD PATIENT NAME: Moustapha Vasquez DATE: September 03, 2019 TIME: 1:12 PM PAGER/CONTACT #:[phone] Bisi Dunlap RN, RN 09/03/2019 1:31 PM Signed ONGOING PATIENT EDUCATION TOPIC Reinforced: sedation Patient Name: Moustapha Vasquez Patient Location: [place] Readiness To Learn Motivation To Learn: Interested Instruction Provided To: Patient Learning Response Patient/Family Response: Verbalizes understanding of: POST-PROCEDURE INSTRUCTIONS-Correct actions to take to reduce post procedure complications Method of Instruction: Verbal instruction Follow-Up Plan: Complete - No need for follow-up Electronically signed by: YOEL Fuller MD 09/03/2019 2:50 PM Signed POST ANESTHESIA EVALUATION NOTE SERVICE DATE: 09/03/2019 SERVICE TIME: 1450 : 1950 Vitals: 09/02/19 1239 09/02/19 1924 09/03/19 0800 09/03/19 1437 Temp: 36.7 ?C (98.1 ?F) 36.4 ?C (97.5 ?F) 36.9 ?C (98.4 ?F) 36.4 ?C (97.5 ?F) 09/03/19 1328 09/03/19 1343 09/03/19 1359 09/03/19 1437 BP: 120/65 121/84 146/82 151/82 09/03/19 1328 09/03/19 1343 09/03/19 1359 09/03/19 1437 Pulse: 63 65 75 65 09/03/19 1328 09/03/19 1343 09/03/19 1359 09/03/19 1437 Resp: 16 18 18 18 09/03/19 1328 09/03/19 1343 09/03/19 1359 09/03/19 1437 SpO2: 99% 99% 99% 99% Validated Vital Signs: Yes POST ANES STATUS: No apparent anesthetic complications. The patient is appropriately hydrated with stable respiratory and cardiovascular status. Patient has safe and adequate airway control. The patient has appropriate pain relief and no significant post operative nausea or vomiting. The patient has achieved baseline mental status. Intra-Operative Events: No Significant Anesthesia Events Further assessment by Anesthesia Service: None Other Remarks: Per report, pt met criteria for discharge from PACU SIGNATURE: Cecil Walter MD PATIENT NAME: Moustapha Vasquez DATE: September 03, 2019 TIME: 2:50 PM PAGER/CONTACT #: Celeste Mcmahan MD 09/04/2019 7:31 AM Cosign Needed Elective General Surgery Progress Note SERVICE DATE: 09/04/2019 Elective General Surgery Service Pager: For questions or concerns Mon-Fri 6a-5p please page [phone]. After 5pm and on Weekends and Holidays, please page [phone] if in ICU or [phone] if on RNF. SUBJECTIVE: NAEON. Denies fevers, chills, CP, SOB, or any other complaints this AM. Tolerating diet DIET NPO Nausea No Emesis No Flatus Yes Bowel movement Yes Pain Controlled Yes Ambulating Yes OBJECTIVE: Vitals: Temp (24hrs), Av.6 ?C (97.8 ?F), Min:36.4 ?C (97.5 ?F), Max:36.9 ?C (98.4 ?F) BP 152/91 Pulse 89 Temp 36.4 ?C (97.5 ?F) (Oral) Resp 18 Ht 172.7 cm (5' 8) Wt 72.1 kg (159 lb) SpO2 98% BMI 24.18 kg/m? O2 Therapy: Room Air IANDO: Date 09/03/19699 - 09/04/19 0659 09/04/19699 - 09/05/19 0659 Shift 9010-0714 4904-2378 2319-9566 24 Hour Total 1018-4408 7543-5409 7912-6389 24 Hour Total INTAKE PO 360 360 PO 360 360 IV 800 1000 1000 2800 OR Crystalloid intake (mL) 800 800 Volume (mL) (lactated ringers infusion) 1000 1000 2000 Shift Total 800 1360 1000 3160 OUTPUT Urine Urine Not Saved. 1 x 1 x 2 x Shift Total Weight (kg) 72.1 72.1 72.1 72.1 72.1 72.1 72.1 72.1 MEDICATIONS Current Facility-Administered Medications Medication Dose Route Frequency - lactated ringers infusion 125 mL/hr INTRAVENOUS CONTINUOUS - ondansetron (PF) 4 mg injection (ZOFRAN) 4 mg INTRAVENOUS PRN - benzocaine-menthol 1 Lozenge (CEPACOL) 1 Lozenge MUCOUS MEMBRANE (TOPICAL MOUTH AND THROAT) q 2 H PRN - melatonin 3 mg tab(s) 3 mg ORAL DAILY (8 PM) - acetaminophen 325 mg tab(s) (TYLENOL) 325 mg ORAL q 4 H PRN - morphine 2 mg injection 2 mg INTRAVENOUS q 2 H PRN - NaCl 0.9% 3-5 mL 3-5 mL INTRAVENOUS q 12 H - ondansetron 4 mg tab(s) (ZOFRAN) 4 mg ORAL q 6 H PRN Or - ondansetron (PF) 4 mg injection (ZOFRAN) 4 mg INTRAVENOUS q 6 H PRN - hydrOXYzine HCl 10 mg tab(s) (ATARAX) 10 mg ORAL q 6 H PRN - iv contrast (radiology procedure) INTRAVENOUS DIRECTED PRN - dextrose 5% in LR infusion (D5-LR) 75 mL/hr INTRAVENOUS CONTINUOUS Labs: Recent Labs 09/03/19 0742 09/02/19 1400 NA 138 141 K 3.3* 3.8 CHLOR 102 102 CO2 25 27 BUN 5* 8* CREAT 0.65* 0.69* GLUC 122* 135* ANION 11 12 CA 8.7 8.9 ALB 3.3* 3.5* AST 178* 161* ALT 228* 230* ALKPHOS 495* 518* TBILI 5.9* 5.6* WBC -- 5.81 HB -- 12.7* HCT -- 37.5* PLT -- 360 INR -- 1.32* Exam: GENERAL: resting comfortably, in no acute distress HEENT: normocephalic, atraumatic, EOMI NECK: trachea midline, no JVD LUNGS: Unlabored breathing, equal chest rise bilaterally CARDIAC: Regular rate and rhythm as above ABDOMEN: Soft, mild tenderness in epigastric region, non-distended EXTREMITIES: COY, No deformities SKIN: Skin color, texture, turgor normal NEURO: AANDOx3, CN II-XII grossly intact PSYCH: normal mood and affect ASSESSMENT AND PLAN: Active Hospital Problems Diagnosis Date Noted - Pancreatic mass 09/02/2019 69 year old male admitted for CT A/P concerning for mass within the pancreatic head, dilation of bile ducts and diffuse atrophy of pancreas. EUS 09/02: Mass in head of pancreas, Dilated PD and CBD. - Diet: NPO - Plan for ERCP today with GI - Pain and nausea control - EUS cyto pending - PRN atarax - Trend LFTs - DVT PPx: LVX - Encourage ambulation, IS Staff Surgeon: Dr. Castillo SIGNATURE: Celeste Mcmahan MD PATIENT NAME: Moustapha Vasquez DATE: September 04, 2019 TIME: 6:20 AM Pager: see below Elective General Surgery Service Pager: For questions or concerns Mon-Fri 6a-5p please page [phone]. After 5pm and on Weekends and Holidays, please page [phone]. Sosa Jean RN, RN 09/04/2019 9:17 AM Signed CARE MANAGEMENT PROGRESS NOTE SERVICE DATE: 09/04/2019 SERVICE TIME: 9:15 AM LOS: 2 days Needs Prior to Discharge: To Be Determined;Pharmacy Bedside Delivery Chart reviewed. Patient independent at home alone prior to admission. Patient hopeful to return home at discharge. Plan for ERCP today with GI. Will continue to follow clinical course for DC planning needs. SIGNATURE: Sosa Jean RN PATIENT NAME: Moustapha Vasquez DATE: September 04, 2019 TIME: 9:15 AM PAGER/CONTACT #: [phone] MARA Camacho 09/04/2019 10:40 AM Signed CARE MANAGEMENT PROGRESS NOTE SERVICE DATE: 09/04/2019 SERVICE TIME: 10:32 AM LOS: 2 days PHQ-9 PATIENT HEALTH QUESTIONNAIRE (PHQ-9) 1. Over the last 2 weeks, how often have you been bothered by any of the following problems? A. Little interest or pleasure in doing things: More than Half the Days (2) B. Feeling down, depressed, or hopeless: Several Days (1) C. Trouble falling asleep, staying asleep, or sleeping too much: Nearly Every Day (3) D. Feeling tired or having little energy: Nearly Every Day (3) E. Poor appetite or overeating: Nearly Every Day (3) F. Feeling bad about yourself, feeling that you are a failure, or feeling that you have let yourself or your family down: None at All (0) G. Trouble concentrating on things such as reading the newspaper or watching television: None at All (0) H. Moving or speaking so slowly that other people could have noticed. Or being so fidgety or restless that you have been moving around a lot more than usual: None at All (0) I. Thoughts that you would be better off or that you want to hurt yourself in some way: None at All (0) 2. If you checked off any problem on this questionnaire so far, how difficult have these problems made it for you to do your work, take care of things at home, or get along with other people: Very difficult TOTAL: 12 Score Depression Severity 1-4 Minimal Depression 5-9 Mild Depression 10-14 Moderate Depression 15-19 Moderately Severe Depression 20-27 Severe Depression Pt consulted for depression screen due to recent life stressors. Pt was tearful during initial assessment and also during this SW's assessment. Provided emotional support. Pt reported separation from and physical health concerns which have impacted his overall functioning and mental health. Pt reports he believes he has been grieving and has been seeking support from his neighbor who runs a counseling practice. Pt feels he has strong support at this time from son and neighbor. Pt denied any mental health resources at this time. Provided education on depression symptoms and encouraged seeking support. SIGNATURE: MARA Camacho PATIENT NAME: Moustapha Vasquez DATE: September 04, 2019 TIME: 10:32 AM PAGER/CONTACT #: [phone] Cecil Walter MD 09/04/2019 11:08 AM Signed ANESTHESIOLOGY DAY OF SURGERY NOTE SERVICE DATE: 09/04/2019 SERVICE TIME: 1100 : 1950 Procedure(s) (LRB): ERCP W/ BRUSHING (N/A) Surgeon(s): Pily Acevedo Estimated body mass index is 24.18 kg/m? as calculated from the following: Height as of this encounter: 172.7 cm (5' 8). Weight as of this encounter: 72.1 kg (159 lb). Most recent hematocrit and potassium results: Hematocrit 37.5 09/02/2019 Potassium 3.3 09/03/2019 ANES DOS/PREOP NOTE: Vitals: 09/03/19 1437 09/03/19 1906 09/03/19 2216 09/04/19 0739 BP: 151/82 149/91 152/91 134/76 Pulse: 65 91 89 77 Resp: 18 18 18 17 Temp: 36.4 ?C (97.5 ?F) 36.6 ?C (97.9 ?F) 36.4 ?C (97.5 ?F) 36.8 ?C (98.2 ?F) TempSrc: Oral Oral Oral Oral SpO2: 99% 99% 98% 98% Weight: Height: ACTIVE PROBLEM LIST Closed Dislocation of Elbow Laxity of Ligament Pain in Joint, Upper Arm Follow-Up Examination Following Surgery CHOLECYSTITIS SEE ALSO GALLBLADDER ACUTE WITH CALCULUS( Without obstruction) Pancreatic Mass PAST MEDICAL HISTORY Diagnosis Date - Acute cholecystitis PAST SURGICAL HISTORY Procedure Laterality Date - LAP CHOLECYSTECT/CHOLANGIOGRAP 02-10-08 - UPPER ARM/ELBOW SURGERY UNLISTED Left pin No family history on file. Social History: Social History Tobacco Use - Smoking status: Never Smoker - Smokeless tobacco: Never Used Substance Use Topics - Alcohol use: Not Currently - Drug use: Never No current facility-administered medications on file prior to encounter. No current outpatient medications on file prior to encounter. Current Facility-Administered Medications Medication Dose Route Frequency Provider Last Rate Last Dose - [MAR Hold due to Transfer] diphenhydrAMINE 25 mg (BENADRYL) 25 mg ORAL q 6 H PRN Sergey Hieb - [MAR Hold due to Transfer] lactated ringers infusion 125 mL/hr INTRAVENOUS CONTINUOUS Cecil Jose Angel 125 mL/hr at 09/04/19 0636 125 mL/hr at 09/04/19 06 - [MAR Hold due to Transfer] ondansetron (PF) 4 mg injection (ZOFRAN) 4 mg INTRAVENOUS PRN Cecil Jose Angel - [MAR Hold due to Transfer] benzocaine-menthol 1 Lozenge (CEPACOL) 1 Lozenge MUCOUS MEMBRANE (TOPICAL MOUTH AND THROAT) q 2 H PRN Sergey Hieb - [MAR Hold due to Transfer] melatonin 3 mg tab(s) 3 mg ORAL DAILY (8 PM) German (Res) Anthony, DO 3 mg at 09/03/192054 - [MAR Hold due to Transfer] acetaminophen 325 mg tab(s) (TYLENOL) 325 mg ORAL q 4 H PRN German (Res) Anthony, DO - [MAR Hold due to Transfer] morphine 2 mg injection 2 mg INTRAVENOUS q 2 H PRN German (Res) Anthony, DO 2 mg at 09/03/192111 - [MAR Hold due to Transfer] NaCl 0.9% 3-5 mL 3-5 mL INTRAVENOUS q 12 H Airachelz Kristina 3 mL at 09/04/19 0807 - [MAR Hold due to Transfer] ondansetron 4 mg tab(s) (ZOFRAN) 4 mg ORAL q 6 H PRN Aijaz Kristina Or - [MAR Hold due to Transfer] ondansetron (PF) 4 mg injection (ZOFRAN) 4 mg INTRAVENOUS q 6 H PRN Aijaz Kristina 4 mg at 09/03/19 1840 - [MAR Hold due to Transfer] hydrOXYzine HCl 10 mg tab(s) (ATARAX) 10 mg ORAL q 6 H PRN Aijaz Kristina - [MAR Hold due to Transfer] iv contrast (radiology procedure) INTRAVENOUS DIRECTED PRN Aijaz Kristina - [MAR Hold due to Transfer] dextrose 5% in LR infusion (D5-LR) 75 mL/hr INTRAVENOUS CONTINUOUS Aijaz Kristina 75 mL/hr at 09/02/19 2100 75 mL/hr at 09/02/192099 Allergies: ALLERGIES No Known Allergies DOS EXAM: Adequate NPO status: Yes Anesthetic risks, benefits, alternatives, personnel and consent discussed: Yes Patient agrees to proceed: Yes Previous Anesthesia: No history of adverse event. Airway Assessment: MP 2; Neck ROM: Full ROM without neurologic symptoms; Airway Evaluation: No significant abnormalities Symptoms of Sleep Apnea: None Dentition: Teeth intact Additional Physical Exam: Lungs: Patient health status unchanged since recent history and physical. See history and physical for exam findings. Cardiac: Patient health status unchanged since recent history and physical. See history and physical for exam findings. Additional Pertinent Findings: N/A Blood Products: Not anticipated for this procedure. Anesthetic Plan: General, Standard ASA Monitors Pain Management Plan: Parenteral or Oral ASA Class: 3 Other Medical Problems: None Chronic Beta Thierno medication administered within 24 hours: N/A I have interviewed and examined the patient. I have reviewed the medical record and/or the pre-anesthesia evaluation, pertinent labs, and test results. Significant changes in the patient's condition since the History and Physical, not otherwise documented in primary service progress notes: No This contains updated information obtained within 48 hours of Surgery/Procedure. SIGNATURE: Cecil Walter MD PATIENT NAME: Moustapha Vasquez DATE: September 04, 2019 TIME: 10:57 AM CSN: [id number] Luna Olivas (RN), YOEL 09/04/2019 11:22 AM Signed PRE OP LEARNING ASSESSMENT PROCEDURE/SURGERY: SURGERY: ercp READINESS TO LEARN COGNITIVE ABILITY: Alert and oriented MOTIVATION TO LEARN: Interested FAMILY SUPPORT: None - Unavailable/disinterested PATIENT LEARNS BEST BY: Individual Instruction Verbal Instruction FACTORS AFFECTING LEARNING: None PHYSICAL LIMITATIONS AFFECTING LEARNING: None Electronically Signed By: Luna Olivas (RN) In Department: [place] SURGERY OR Normal [facility] Hemogram/Diffon 09-02-2019 Abs Immature Grans 0.01 thou/cmm Normal 0.00-0.05 [facility] Comment on above: Performed By: #### C BCD1 #### [facility] [address] [place] [address] Abs Neut (ANC) 4.19 thou/cmm Normal 1.78-5.38 [facility] Comment on above: Performed By: #### C BCD1 #### [place] [address] Abs. Baso 0.05 thou/cmm Normal 0.01-0.08 [facility] Comment on above: Performed By: #### C BCD1 #### [place] [address] Abs. Esmeralda 0.55 thou/cmm Normal 0.30-0.82 [facility] Comment on above: Performed By: #### C BCD1 #### [place] [address] Basophils/100 WBC (Bld) 0.9 % Normal [facility] Comment on above: Performed By: #### C BCD1 #### [place] [address] Eosinophils (Bld) [#/Vol] 0.31 thou/cmm Normal 0.04-0.54 [facility] Comment on above: Performed By: #### C BCD1 #### [place] [address] Eosinophils/100 WBC (Bld) 5.3 % Normal [facility] Comment on above: Performed By: #### C BCD1 #### [place] [address] Erythrocyte distribution width (RBC) [Ratio] 13.9 % Normal 11.6-14.4 [facility] Comment on above: Performed By: #### C BCD1 #### [facility] [address] [place] [address] Hematocrit (Bld) [Volume fraction] 37.5 % Low 40.1-51.0 [facility] Comment on above: Performed By: #### C BCD1 #### [facility] [address] [place] [address] Hemoglobin (Bld) [Mass/Vol] 12.7 g/dL Low 13.7-17.5 [facility] Comment on above: Performed By: #### C BCD1 #### [place] [address] Immature Grans 0.20 % Normal [facility] Comment on above: Performed By: #### C BCD1 #### [place] [address] Lymphocytes (Bld) [#/Vol] 0.70 thou/cmm Low 0.84-2.85 [facility] Comment on above: Performed By: #### C BCD1 #### [place] [address] Lymphocytes/100 WBC (Bld) 12.0 % Normal [facility] Comment on above: Performed By: #### C BCD1 #### [place] [address] MCH (RBC) [Entitic mass] 33.7 pg High 25.7-32.2 [facility] Comment on above: Performed By: #### C BCD1 #### [facility] [address] [place] [address] MCHC (RBC) [Mass/Vol] 33.9 % Normal 32.3-36.5 [facility] Comment on above: Performed By: #### C BCD1 #### [place] [address] MCV (RBC) [Entitic vol] 99.5 fL High 83.2-95.6 [facility] Comment on above: Performed By: #### C BCD1 #### [facility] [address] [place], [place] [address] Monocytes/100 WBC (Bld) 9.5 % Normal [facility] Comment on above: Performed By: #### C BCD1 #### [facility] [address] [place], [place] [address] Platelet mean volume (Bld) [Entitic vol] 9.2 fL Normal 8.7-12.0 [facility] Comment on above: Performed By: #### C BCD1 #### [facility] [address] [place], [place] [address] Platelets (Bld) [#/Vol] 360 thou/cmm Normal 141-365 [facility] Comment on above: Performed By: #### C BCD1 #### [facility] [address] [place], [place] [address] RBC (Bld) [#/Vol] 3.77 mil/cmm Low 4.63-6.08 [facility] Comment on above: Performed By: #### C BCD1 #### [facility] [address] [address] RDW SD 50.8 fl High 36.1-45.8 [facility] Comment on above: Performed By: #### C BCD1 #### [facility] [address] [place], [place] [address] Seg Neutrophil 72.1 % Normal [facility] Comment on above: Performed By: #### C BCD1 #### [facility] [address] [place], [place] [address] WBC (Bld) [#/Vol] 5.81 thou/cmm Normal 4.23-9.07 [facility] Comment on above: Performed By: #### C BCD1 #### [facility] [address] [place] [address] PLAN OF CAREon 09-02-2019 PLAN OF CARE HNO ID: [id number] Author: Nicole Kwok (Forest Pathologist) Service: ? Author Type: ? 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 Patient to use [facility] Bedside Delivery - YES Insurance Information as follows: 2. Insurance card on file - NO 3. Credit card for payment - N/A Patient elected to use bedside delivery. No prescriptions currently written. Please call pharmacy bedside delivery at [phone] or [phone] when patient has discharge orders and prescriptions are ready to be filled and delivered prior to discharge. Thank you. Nicole Kwok (Forest Pathologist) Normal [facility] Protimeon 09-02-2019 INR Coag (PPP) [Relative time] 1.32 {INR} High 0.90-1.30 [facility] Comment on above: Result Comment: Lela min K Antagonist (VKA) Therapeutic Range: INR 2 to 3 (Target INR of 2.5) Note: For patients treated with VKA drugs, such as warfarin, the [employer] 2012 Guideline recommends a therapeutic INR range of 2 to 3 (target INR of 2.5). This recommendation includes high-risk patients with antiphospholipid syndrome with previous arterial or venous thromboembolism, current-generation mechanical or bioprosthetic aortic heart valve replacement. Note: Patients with mechanical aortic valve replacement and additional risk factors for thromboembolic events (atrial fibrillation, previous thromboembolism, LV dysfunction, hypercoagulable conditions) or an older generation mechanical AVR (i.e., ball in-Cage) or any mechanical MVR should have a INR therapeutic range of 2.5 to 3.5 target INR of 3). Isa GH, et al. Chest 2012; 141:7S-47S Amrik RA et al. [facility] 2017; 70: 252-289 Performed By: #### P T #### [address] [address] PT Coag (PPP) [Time] 14.2 s High 9.7-13.0 [facility] Comment on above: Performed By: #### P T #### [address] [address] Vital Signs Date Time Vital Sign Value Performing Clinician Hernesto jewell 10-29-2024 11:110400 Body height 172.[address] Anjelica Mendoza MD Work Phone: [facility] 10-29-2024 11:11-0400 Body mass index (BMI) [Ratio] 20 kg/m2 Dr. Anjelica Mendoza MD Work Phone: [facility] 10-29-2024 11:11-0400 Body temperature 98.6 [degF] Dr. Anjelica Mendoza MD Work Phone: [facility] 10-29-2024 11:11-0400 Body weight 59.[address] Anjelica Mendoza MD Work Phone: [facility] 10-29-2024 11:11-0400 Diastolic blood pressure 58 mm[Hg] Dr. Anjelica Mendoza MD Work Phone: [facility] 10-29-2024 11:11-0400 Heart rate 72 /min Dr. Anjelica Mendoza MD Work Phone: [facility] 10-29-2024 11:11-0400 Respiratory rate 16 /min Dr. Anjelica eMndoza MD Work Phone: [facility] 10-29-2024 11:11-0400 SaO2% (BldA) [Mass fraction] 97 % Dr. Anjelica Mendoza MD Work Phone: [facility] 10-29-2024 11:11-0400 Systolic blood pressure 98 mm[Hg] Dr. Anjelica Mendoza MD Work Phone: [facility] 07-21-2024 10:06-0400 Body mass index (BMI) [Ratio] 19.6 kg/m2 Dr. Anjelica Mendoza MD Work Phone: [facility] 07-21-2024 10:06-0400 Body temperature 98.2 [degF] Dr. Anjelica Mendoza MD Work Phone: [facility] 07-21-2024 10:06-0400 Body weight 58.[address] Anjelica Mendoza MD Work Phone: [facility] 07-21-2024 10:06-0400 Diastolic blood pressure 73 mm[Hg] Dr. Anjelica Mendoza MD Work Phone: [facility] 07-21-2024 10:06-0400 Heart rate 65 /min Dr. Anjelica Mendoza MD Work Phone: [facility] 07-21-2024 10:06-0400 Respiratory rate 16 /min Dr. Anjelica Mendoza MD Work Phone: [facility] 07-21-2024 10:06-0400 SaO2% (BldA) [Mass fraction] 98 % Dr. Anjelica Mendoza MD Work Phone: [facility] 07-21-2024 10:06-0400 Systolic blood pressure 120 mm[Hg] Dr. Anjelica Mendoza MD Work Phone: [facility] 07-10-2024 12:34-0400 Body temperature 98 [degF] Dr. Anjelica Mendoza MD Work Phone: [facility] 07-10-2024 12:34-0400 Diastolic blood pressure 60 mm[Hg] Dr. Anjelica Mendoza MD Work Phone: [facility] 07-10-2024 12:34-0400 Heart rate 61 /min Dr. Anjelica Mendoza MD Work Phone: [facility] 07-10-2024 12:34-0400 SaO2% (BldA) [Mass fraction] 96 % Dr. Anjelica Mendoza MD Work Phone: [facility] 07-10-2024 12:34-0400 Systolic blood pressure 98 mm[Hg] Dr. Anjelica Mendoza MD Work Phone: [facility] 03-27-2024 10:19-0500 Body height 172.[address] Anjelica Mendoza MD Work Phone: [facility] 03-27-2024 10:19-0500 Body mass index (BMI) [Ratio] 20.9 kg/m2 Dr. Anjelica Mendoza MD Work Phone: [facility] 03-27-2024 10:19-0500 Body temperature 98.6 [degF] Dr. Anjelica Mendoza MD Work Phone: [facility] 03-27-2024 10:19-0500 Body weight 62.[address] Anjelica Mendoza MD Work Phone: [facility] 03-27-2024 10:19-0500 Diastolic blood pressure 62 mm[Hg] Dr. Anjelica Mendoza MD Work Phone: [facility] 03-27-2024 10:19-0500 Heart rate 77 /min Dr. Anjelica Mendoza MD Work Phone: [facility] 03-27-2024 10:19-0500 Respiratory rate 16 /min Dr. Anjelica Mendoza MD Work Phone: [facility] 03-27-2024 10:19-0500 SaO2% (BldA) [Mass fraction] 97 % Dr. Anjelica Mendoza MD Work Phone: [facility] 03-27-2024 10:19-0500 Systolic blood pressure 117 mm[Hg] Dr. Anjelica Mendoza MD Work Phone: [facility] 06-15-2023 21:16-0500 Body height 172.72 cm [facility] 06-15-2023 21:16-0500 Body mass index (BMI) [Ratio] 20.5 kg/m2 [facility] 06-15-2023 21:16-0500 Body temperature 97.2 [degF] [facility] 06-15-2023 21:16-0500 Body weight 61.23 kg [facility] 06-15-2023 21:16-0500 Diastolic blood pressure 83 mm[Hg] [facility] 06-15-2023 21:16-0500 Heart rate 77 /min [facility] 06-15-2023 21:16-0500 Respiratory rate 16 /min [facility] 06-15-2023 21:16-0500 SaO2% (BldA) [Mass fraction] 100 % [facility] 06-15-2023 21:16-0500 Systolic blood pressure 144 mm[Hg] [facility] 05-08-2022 13:41-0500 Body temperature 97.2 [degF] Dr. Anjelica Mendoza Work Phone: [facility] 05-08-2022 13:41-0500 Body weight 62.[address] Anjelica Mendoza Work Phone: [facility] 05-08-2022 13:41-0500 Diastolic blood pressure 75 mm[Hg] Dr. Anjelica Mendoza Work Phone: [facility] 05-08-2022 13:41-0500 Heart rate 58 /min Dr. Anjelica Mendoza Work Phone: [facility] 05-08-2022 13:41-0500 Respiratory rate 16 /min Dr. Anjelica Mendoza Work Phone: [facility] 05-08-2022 13:41-0500 SaO2% (BldA) [Mass fraction] 98 % Dr. Anjelica Mendoza Work Phone: [facility] 05-08-2022 13:41-0500 Systolic blood pressure 135 mm[Hg] Dr. Anjelica Mendoza Work Phone: [facility] 04-27-2022 12:49-0500 Body temperature 98.1 [degF] Dr. Anjelica Mendoza Work Phone: [facility] 04-27-2022 12:49-0500 Diastolic blood pressure 70 mm[Hg] Dr. Anjelica Mendoza Work Phone: [facility] 04-27-2022 12:49-0500 Heart rate 60 /min Dr. Anjelica Mendoza Work Phone: [facility] 04-27-2022 12:49-0500 Respiratory rate 14 /min Dr. Anjelica Mendoza Work Phone: [facility] 04-27-2022 12:49-0500 SaO2% (BldA) [Mass fraction] 100 % Dr. Anjelica Mendoza Work Phone: [facility] 04-27-2022 12:49-0500 Systolic blood pressure 122 mm[Hg] Dr. Anjelica Mendoza Work Phone: [facility] 04-27-2022 12:35-0500 Body mass index (BMI) [Ratio] 20.7 kg/m2 Dr. Anjelica Mendoza Work Phone: [facility] 04-26-2022 13:09-0500 Body height 172.[address] Anjelica Mendoza Work Phone: [facility] 04-26-2022 13:09-0500 Body weight [address] Anjelica Mendoza Work Phone: [facility] 04-26-2022 12:34-0500 Body temperature 96.6 [degF] [facility] Work Phone: 04-26-2022 12:34-0500 Diastolic blood pressure 83 mm[Hg] [facility] Work Phone: 04-26-2022 12:34-0500 Heart rate 61 /min [facility] Work Phone: 04-26-2022 12:34-0500 Respiratory rate 14 /min [facility] Work Phone: 04-26-2022 12:34-0500 SaO2% (BldA) [Mass fraction] 99 % [facility] Work Phone: 04-26-2022 12:34-0500 Systolic blood pressure 145 mm[Hg] [facility] Work Phone: 04-26-2022 11:04-0500 Body height 172.72 cm [facility] Work Phone: 04-26-2022 11:04-0500 Body mass index (BMI) [Ratio] 22.6 kg/m2 [facility] Work Phone: 04-26-2022 11:04-0500 Body weight 67.4 kg [facility] Work Phone: 09-26-2021 13:17-0400 Body height 172.[address] Anjelica Mendoza Work Phone: [facility] Work Phone: 09-26-2021 13:17-0400 Body mass index (BMI) [Ratio] 20.9 kg/m2 Dr. Anjelica Mendoza Work Phone: [facility] Work Phone: 09-26-2021 13:17-0400 Body temperature 97.8 [degF] Dr. Anjelica Mendoza Work Phone: [facility] Work Phone: 09-26-2021 13:17-0400 Body weight 62.[address] Anjelica Mendoza Work Phone: [facility] Work Phone: 09-26-2021 13:17-0400 Diastolic blood pressure 66 mm[Hg] Dr. Anjelica Mendoza Work Phone: [facility] Work Phone: 09-26-2021 13:17-0400 Heart rate 65 /min Dr. Anjelica Mendoza Work Phone: [facility] Work Phone: 09-26-2021 13:17-0400 Respiratory rate 16 /min Dr. Anjelica Mendoza Work Phone: [facility] Work Phone: 09-26-2021 13:17-0400 SaO2% (BldA) [Mass fraction] 99 % Dr. Anjelica Mendoza Work Phone: [facility] Work Phone: 09-26-2021 13:17-0400 Systolic blood pressure 118 mm[Hg] Dr. Anjelica Mendoza Work Phone: [facility] Work Phone: 09-26-2021 13:17-0400 Body height 172.[address] Anjelica Mendoza Work Phone: [facility] Work Phone: 09-26-2021 13:17-0400 Body mass index (BMI) [Ratio] 20.9 kg/m2 Dr. Anjelica Mendoza Work Phone: [facility] Work Phone: 09-26-2021 13:17-0400 Body temperature 97.8 [degF] Dr. Anjelica Mendoza Work Phone: [facility] Work Phone: 09-26-2021 13:17-0400 Body weight 62.[address] Anjelica Mendoza Work Phone: [facility] Work Phone: 09-26-2021 13:17-0400 Diastolic blood pressure 66 mm[Hg] Dr. Anjelica Mendoza Work Phone: [facility] Work Phone: 09-26-2021 13:17-0400 Heart rate 65 /min Dr. Anjelica Mendoza Work Phone: [facility] Work Phone: 09-26-2021 13:17-0400 Respiratory rate 16 /min Dr. Anjelica Mendoza Work Phone: [facility] Work Phone: 09-26-2021 13:17-0400 SaO2% (BldA) [Mass fraction] 99 % Dr. Anjelica Mendoza Work Phone: [facility] Work Phone: 09-26-2021 13:17-0400 Systolic blood pressure 118 mm[Hg] Dr. Anjelica Mendoza Work Phone: [facility] Work Phone: Encounters Encounter Date Encounter Type Care Provider Facility Start: 10-29-2024 End: 10-29-[address] Anjelica Mendoza MD Work Phone: -Laboratory Start: 10-29-2024 End: 10-29-[address] Anjelica Mendoza MD -Laboratory Work Phone: Start: 10-29-2024 End: 10-29-[address] Anjelica Mendoza MD -[facility] Work Phone: Start: 10-29-2024 End: 10-29-[address] Anjelica Mendoza MD Work Phone: -[facility] Start: 10-29-2024 End: 10-29-2024 ambulatory Anjelica Mendoza Facility:[facility] Start: 07-21-2024 End: 07-21-[address] Anjelica Mendoza MD -[facility] Work Phone: Start: 07-21-2024 End: 07-21-2024 ambulatory Anjelica Mendoza [place] [place]: 07-10-2024 End: 07-10-2024 Patient encounter procedure Arsen SINGER -[facility] Work Phone: Start: 07-10-2024 End: 07-10-[address] Anjelica Mendoza MD Work Phone: [facility] Work Phone: Start: 07-10-2024 End: 07-10-2024 ambulatory Arsen SINGER Facility:[facility] Start: 04-01-2024 End: 04-01-[address] Anjelica Mendoza MD -Laboratory Work Phone: Start: 04-01-2024 End: 04-01-2024 ambulatory Anjelica Mendoza Facility:[facility] Start: 03-27-2024 End: 03-27-[address] Anjelica Mendoza MD -[facility] Work Phone: Start: 03-27-2024 End: 03-27-2024 ambulatory Anjelica Mendoza [place] [place]: 03-27-2024 End: 03-27-2024 ambulatory Anjelica Mendoza Facility:[facility] Start: 06-15-2023 End: 06-15-2023 [facility] Start: 05-09-2023 End: 05-09-2023 ambulatory [facility] Work Phone: Start: 05-09-2023 End: 05-09-2023 Patient encounter procedure [facility] Work Phone: Start: 09-12-2022 End: 09-12-2022 ambulatory [facility] Work Phone: Start: 09-12-2022 End: 09-12-2022 [facility]: 07-17-2022 End: 07-17-[address] Anjelica Mendoza Work Phone: [facility] Work Phone: Start: 07-17-2022 End: 07-17-[address] [facility] Start: 06-29-2022 End: 06-29-[address] [facility] Start: 05-08-2022 End: 05-08-[address] Anjelica Mendoza Work Phone: [facility] Work Phone: Start: 05-08-2022 End: 05-08-[address] [facility] Start: 05-08-2022 End: 05-08-[address] Anjelica Mendoza Work Phone: [place] [facility] Start: 04-27-2022 Non-patient / Non-visit Dr. Margarita Mendoza Work Phone: [facility] Start: 04-27-2022 Non-patient / Non-visit Dr. Margarita Mendoza Work Phone: [facility] Start: 04-26-2022 Non-patient / Non-visit Dr. Margarita Mendoza Work Phone: [facility] Start: 04-26-2022 End: 04-27-2022 Evaluation and management of inpatient Dr. Anjelica Mendoza [facility] Start: 04-26-2022 [facility] Start: 10-07-2021 End: 10-07-[address] Anjelica Mendoza Work Phone: [facility] Start: 10-05-2021 End: 10-05-[address] Anjelica Mendoza [facility] Start: 09-26-2021 End: 09-26-[address] Anjelica Mendoza Work Phone: [facility] Start: 09-26-2021 End: 09-26-[address] Anjelica Mendoza Work Phone: [facility] Start: 06-09-2020 Encounter for genera l adult medical examination without abnormal findings [facility] Start: 06-09-2020 End: 06-12-2020 Patient encounter procedure SHANNON AGUERO [facility] Start: 08-15-2019 Patient encounter procedure SURESH CRUM Facility:[facility] Encounter for genera l adult medical examination without abnormal findings SHANNON [facility] Procedures Date Procedure Procedure Detail Performing Clinician Start: 10-29-2024 X-ray of thoracic sp ine, three views Dr. Anjelica Mendoza MD Work Phone: Start: 10-29-2024 Vitamin D, 25-hydrox y measurement Dr. Anjelica Mendoza MD Work Phone: Comment on above: Vitamin D StatusDefi ciency: <20 ng/mL (50nmol/L)Insufficiency: 20-30 ng/mL (50-75 nmol/L)Sufficiency: 30-100 ng/mL (75-250 nmol/L)Toxicity: >100 ng/mL (>250 nmol/L) Start: 07-10-2024 X-ray of chest, PA a nd lateral views Dr. Anjelica Mendoza MD Work Phone: Start: 04-26-2022 MRI of brain without contrast Dr. Anjelica Mendoza Work Phone: Start: 04-26-2022 CT angiography of he ad and neck Dr. Anjelica Mendoza Work Phone: Start: 04-26-2022 Plain chest X-ray Start: 04-26-2022 CT of head without contrast Start: 10-07-2021 Computed tomography of abdomen and pelvis with contrast Dr. Anjelica Mendoza Work Phone: Plan of Treatment Date Care Activity Detail Author Start: 10-29-2024 X-ray of thoracic spine, three views Thoracic Spine 3 Views [facility] Start: 10-29-2024 XR Thoracic spine 3 Views [facility] Start: 10-29-2024 CBC W Auto Differential panel - Blood [facility] Start: 10-29-2024 Comprehensive metabolic 2000 panel - Serum or Plasma [facility] Start: 10-29-2024 Magnesium measurement [facility] Start: 10-29-2024 Triacylglycerol lipase measurement [facility] Start: 06-15-2023 [facility] Start: 04-27-2022 Patient discharge [facility] Start: 04-26-2022 Ambulation without limitation [facility] Start: 04-26-2022 Assessment of risk of venous thromboembolism [facility] Start: 04-26-2022 Insertion of catheter into peripheral vein [facility] Start: 04-26-2022 Measuring intake and output [facility] Start: 04-26-2022 Providing care according to standard [facility] Start: 04-26-2022 Referral to occupational therapist [facility] Start: 04-26-2022 Referral to service [facility] Start: 04-26-2022 [facility] Start: 04-26-2022 Admission procedure [facility] Start: 04-26-2022 Following clinical pathway protocol [facility] Start: 04-26-2022 Oxygen therapy [facility] Start: 04-26-2022 End: 04-26-2022 [facility] Work Phone: Alanine aminotransfe rase [Enzymatic activity/volume] in Serum or Plasma [facility] Albumin [Mass/volume ] in Serum or Plasma [facility] Alkaline phosphatase [Enzymatic activity/volume] in Serum or Plasma [facility] Anion gap in Serum or Plasma [facility] Bilirubin, total measurement [facility] BUN/Creatinine ratio [facility] Calcium [Mass/volume ] in Serum or Plasma [facility] Carbon dioxide, tota l [Moles/volume] in Central venous blood [facility] Creatinine [Mass/vol ume] in Serum or Plasma [facility] Glucose [Mass/volume ] in Serum or Plasma [facility] Measurement of renal function [facility] Patient Education ED Myalgias ED Muscle Strain, Extremity [facility] Work Phone: Patient referral [facility] Work Phone: Potassium measurement [facility] Serum chloride measurement [facility] Sodium measurement [facility] Total protein measurement [facility] Urea nitrogen [Mass/ volume] in Serum or Plasma [facility] Payers Date Payer Category Payer Self-pay [id number] 2024 Medicare [id number] 2019 Unknown [id number] 1950 Unknown [id number] [id number] 1950 Unknown [id number] [id number] Medicare [id number] Unknown [id number] Unknown [id number] 2.16.8 [id number] Unknown [id number] 2.16.8 [id number] Unknown [id number] 2.16.8 [id number] Unknown [id number] 2.16.8 [id number] Unknown [id number] 2.16.8 [id number] Unknown [id number] 2.16.8 [id number] Unknown [id number] 2.16.8 [id number] Unknown [id number] 2.16.8 [id number] Social History Date Type Detail Facility Start: 09-26-2021 End: 06-15-2023 Tobacco smoking status NHIS Unknown if ever smoked [facility] Start: 06-18-2019 Occasional [facility] Start: 06-18-2019 None [facility] Start: 06-18-2019 Alone [facility] Start: 01-19-2020 Non-smoker [facility] Start: 1950 Sex Assigned At Male [facility] Start: 06-15-2023 Tobacco smoking stat [facility] Never smoked tobacco (finding) [facility] Start: 07-18-2024 Sex Male (finding) [facility] Medical Equipment Procedure Code Equipment Code Equipment Origin al Text Equipment Identifier Dates Insertion, vascular access port PORT,POWER 8FR FDA Start: 10-23-2019 Insertion, vascular access port PORT,POWER 8FR FDA Start: 10-23-2019 Insertion, vascular access port PORT,POWER 8FR FDA Start: 10-23-2019 Insertion, vascular access port PORT,POWER 8FR FDA Start: 10-23-2019 Insertion, vascular access port PORT,POWER 8FR FDA Start: 10-23-2019 Insertion, vascular access port PORT,POWER 8FR FDA Start: 10-23-2019 Insertion, vascular access port PORT,POWER 8FR FDA Start: 10-23-2019 Insertion, vascular access port PORT,POWER 8FR FDA Start: 10-23-2019 Insertion, vascular access port PORT,POWER 8FR FDA Start: 10-23-2019 Insertion, vascular access port PORT,POWER 8FR FDA Start: 10-23-2019 Insertion, vascular access port PORT,POWER 8FR FDA Start: 10-23-2019 Insertion, vascular access port PORT,POWER 8FR FDA Start: 10-23-2019 Insertion, vascular access port PORT,POWER 8FR FDA Start: 10-23-2019 Goals Date Patient Goal Desired Activity /State Functional Status Date Assessment Result Facility 04-27-2022 Functional status Ambulates;Up ad louisa [facility] Work Phone: Mental Status Date Assessment Result Facility 04-27-2022 Cognitive function Voice/Name [facility] Work Phone: Clinical Notes 03-27-2024 to 10-30-2024 Note Date & Type Note Facility 10-30-2024 Radiology Diagnostic study note [facility] Services [address] [place], [place] [id number] Thoracic Spine 3 Views MR#: [id number] Acct: [id number] Name: MOUSTAPHA VASQUEZ Rep #: [id number] : 1950 M 74 From: Nito Franks MD PCP: Dr. Anjelica Mendoza MD Status: REG CLI Study:Thoracic Spine 3 Views Date of Exam: 10/29/24 Exam# [id number] Ordering Dr: Anjelica Mendoza MD PROCEDURE: THORACIC SPINE 3 VIEWS 10/29/2024 REASON FOR EXAM: THORACIC BACK PAIN TECHNIQUE: THORACIC SPINE 3 VIEWS COMPARISON: None FINDINGS: The vertebral alignment is maintained with no spondylolisthesis visualized. No evidence of vertebral body fracture. Intervertebral disc spaces are reduced and facet joint arthropathy. No scoliosis seen. Degenerative osteophytes seen. Normal paravertebral soft tissue densities noted. RAD/Thoracic Spine 3 Views IMPRESSION: Thoracic spondylosis. No acute fracture. [facility] CC: Dr. Anjelica Mendoza MD ~ Mathematics Faculty Member: Signed [facility] 07-10-2024 Evaluation note Diagnosis Onset Date Resolution Influenza due to influenza virus, type A, human acute July 10, 2024 12:33pm Dry mouth acute July 21 9:58am Hypokalemia acute July 21, 2 025 9:58am Pancreatic adenocarcinoma chronic July 21, 2024 9:58am TIA (transient ischemic attack) chronic July 21, 2024 9:58am 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 Anjelica Mendoza MD Status: REG CLI Study:Chest PA and Lateral Date of Exam: 07/10/24 Exam# [id number] Ordering Dr: Kell Delcid PA PA PROCEDURE: CHEST PA AND LATERAL (RADCXR), 07/10/2024 REASON FOR EXAM: COUGH TECHNIQUE: PA and lateral views of the chest were obtained. COMPARISON: 04/26/2022 FINDINGS: Heart: Unremarkable. Mediastinum: Unremarkable. Lungs/pleura: Similar elevation of the RIGHT hemidiaphragm. No convincing focalconsolidation. No pleural effusion or visible pneumothorax. Bones: Suspect demineralization. Multilevel spondylosis.. Other: None. RAD/Chest PA and Lateral IMPRESSION: 1. No visible acute cardiopulmonary findings 2. Additional description as above. Reading Location: [id number] CC: LUCRECIA Prieto; Dr. Anjelica Mendoza MD ~ Mathematics Faculty Member: Signed [facility]12-05-2024 Evaluation note* Diagnosis Onset Date Resolution Status Admit Date Hypokalemia acute March 27, 2024 10:09am Hyponatremia acute March 10:09am Nausea acute March 27, 2024 10:09am whipple surgery acute March 27, 2024 10:09am Malnutrition following gastrointestinal surgery chronic Decembe 2023 10:09am Pancreatic adenocarcinoma chronic March 27, 2024 10:09am Influenza due to influenza virus, type A, human acute July 10, 2024 12:33pm [facility] Work Phone: Evaluation note* Diagnosis Onset Date Resolution Status Loose stools acute Malnutrition following gastrointestinal surgery chronic Pancreatic adenocarcinoma ch ronic [facility] Work Phone: Evaluation note* Diagnosis Onset Date Resolution Status Brain TIA acute Hyperglycemia acute Hypokalemia acute [facility] Work Phone: Evaluation note* Diagnosis Onset Date Resolution Status Hypokalemia acute Malnutrition following gastrointestinal surgery chronic Pancreatic adenocarcinoma ch ronic TIA (transient ischemic attack) chronic [facility] Work Phone: Evaluation noteNo assessment information available [facility] Work Phone: Hospital Discharge instructions Additional Instructions Your ultrasound showed no sign of DVT/blood clot and on exam there is no sign of infection. Follow-up with your family doctor for repeat evaluation return to the ER should [facility] have any [facility] Work Phone: Reason for referral (narrative)No reason for referral information availableW[facility] Work Phone: Summary Purpose Family History No Family History Records Found Relationship Condition Age at Onset Recorded Date/T mary sister Diabetes mellitus Unknown mother Coronary artery disease Unknown grandmother Malignant neoplasm of breast Unknown Advance Directives No Advanced Directives Records Found Advance Directive Response Recorded Date/ Time Advance Directives No September 07 1:18pm Living Will Yes September 07, 2020 1 :18pm Power of Manager Business Management Yes September 07, 2020 1:18pm Advance Directive Response Recorded Date/ Time Advance Directives No September 07 1 12:18pm Living Will No April 26 3 11:04am Power of Manager Business Management No April 26, 2 023 11:04am Advance Directive Response Recorded Date/ Time Advance Directives No September 07 12:18pm Living Will No April 26 3 1:09pm Power of Manager Business Management No April 26, 2 023 1:09pm Advance Directive Response Recorded Date/ Time Advance Directives No September 07 1 1:18pm Living Will No April 26 3 2:09pm Power of Manager Business Management No April 26, 2 023 2:09pm Advance Directive Response Recorded Date/ Time Name of Medical Power of Manager Business Management [email or web address] [email or web address] June 15, 2023 11:05pm Advance Directives No September 07 12:18pm Living Will Yes June 15, 2 024 11:05pm Power of Manager Business Management Yes June 15, 2023 11:05pm Advance Directive Response Recorded Date/ Time Advance Directives No September 07 1 1:18pm Hospital Course Note HNO ID: [id number] Author: Toby Walker DO Service: General Surgery Author Type: [...] for readmission. Specif (more content not included)... Chief Complaint and Reason for Visit Chief Complaint FOLLOW UP Reason for Visit Loose stools Malnutrition following gastrointestinal surgery Pancreatic adenocarcinoma Chief Complaint FOLLOW UP PANCREAS CA Reason for Visit Loose stools Malnutrition following gastrointestinal surgery Pancreatic adenocarcinoma Chief Complaint TIA, HYPOKALEMIA Reason for Visit Brain TIA Hyperglycemia Hypokalemia Chief Complaint TIA, HYPOKALEMIA TIA, HYPOKALEMIA Reason for Visit Brain TIA Hyperglycemia Hypokalemia Chief Complaint TIA, HYPOKALEMIA TIA, HYPOKALEMIA TIA, HYPOKALEMIA [facility] ER FU EORDER Reason for Visit Hypokalemia Malnutrition following gastrointestinal surgery Pancreatic adenocarcinoma TIA (transient ischemic attack) Chief Complaint TIA, HYPOKALEMIA TIA, HYPOKALEMIA TIA, HYPOKALEMIA [facility] ER FU EORDER INT LABS Reason for Visit Hypokalemia Malnutrition following gastrointestinal surgery Pancreatic adenocarcinoma TIA (transient ischemic attack) Chief Complaint INT LABS INT LABS Chief Complaint E-ORDER Chief Complaint E-ORDER LOWER EXTREMITY Chief Complaint Admit Date Annual/Physical March 27, 2024 1 0:09am E ORDERS April 01, 2024 9:06am Cough/ CLOGGED EARS July 10, 2024 12: 33pm cough July 10, 2024 12: 53pm Reason for Visit Admit Date Hypokalemia March 27, 2024 1 0:09am Hyponatremia March 27, 2024 1 0:09am Nausea March 27, 2024 1 0:09am whipple surgery March 27, 2024 1 0:09am Malnutrition following gastrointestinal surgery March 27, 2024 10:09am Pancreatic adenocarcinoma March 27, 2024 10:09am Influenza due to influenza virus, type A , human July 10, 2024 12:33pm Chief Complaint Admit Date Cough/ CLOGGED EARS July 10, 2024 12: 33pm cough July 10, 2024 12: 53pm Dry Mouth July 21, 2024 9:5 8am BACK PAIN, FATIGUE October 29, 2024 11:02 am E-ORDER October 29, 2024 12:19 pm Reason for Visit Admit Date Influenza due to influenza virus, type A , human July 10, 2024 12:33pm Dry mouth July 21, 2024 9:5 8am Hypokalemia July 21, 2024 9:5 8am Pancreatic adenocarcinoma July 21 9:58am TIA (transient ischemic attack) July 212024 9:58am Reason for Visit Admit Date Influenza due to influenza virus, type A , human July 10, 2024 12:33pm Dry mouth July 21, 2024 9:5 8am Hypokalemia July 21, 2024 9:5 8am Pancreatic adenocarcinoma July 21 9:58am TIA (transient ischemic attack) July 212024 9:58am Easy fatigability October 29, 2024 11:02 am Loose stools October 29, 2024 11:02 am Thoracic back pain October 29, 2024 11:02 am Pancreatic adenocarcinoma October 29, 2024 11:02am Additional Source Comments (unrecognized sect ion and content) No Status Records FoundNo Status Records FoundNo Status Records FoundNo Status Records FoundNo Status Records Found INFORMATION SOURCE (unrecogn ized section and content) DATE CREATED AUTHOR 08/15/2019 [facility] DATE CREATED AUTHOR AUTHOR'S ORGANIZ ATION 09/19/2019 [facility] DATE CREATED AUTHOR AUTHOR'S ORGANIZ ATION 09/22/2019 [facility] DATE CREATED AUTHOR AUTHOR'S ORGANIZ ATION 06/21/2020 [facility] DATE CREATED AUTHOR AUTHOR'S ORGANIZ ATION 11/08/2024 [facility] Goals (unrecognized section and content) Goals may be documented in a n alternate sectionGoals may be documented in an alternate sectionGoals may be documented in an alternate sectionGoals may be documented in an alternate sectionGoals may be documented in an alternate sectionGoals may be documented in an alternate sectionGoals may be documented in an alternate sectionGoals may be documented in an alternate sectionGoals may be documented in an alternate sectionGoals may be documented in an alternate section Care Teams (unrecognized sec tion and content) Team Status: Active Member Role Status Dates Dr. Nurys Hutchinson MD Family Provider Active Dr. Anjelica Mendoza MD Primary Care Provider Active Team Status: Active Member Role Status Dates Dr. Anjelica Mendoza MD Primary Care Provider Active Dr. Armando Chan MD Emergency Provider Active Dr. Suresh Crum DO Admit Provider, Attending Provider, Other Provider Active Team Status: Active Member Role Status Dates Dr. Anjelica Mendoza MD Primary Care Provider Active Dr. Russ Kim MD Attending Provider Activ e Team Status: Active Member Role Status Dates Dr. Anjelica Mendoza MD Primary Care Provider Active Dr. Armando Chan MD Emergency Provider Active Dr. Suresh Crum DO Admit Provider, Other Provide r Active Dr. Cosmo Hernandez MD Attending Provider, Other Provider Active Team Status: Inactive Member Role Status Dates Dr. Anjelica Mendoza MD Primary Care Provider, Attendi ng Provider Active Team Status: Inactive Member Role Status Dates Dr. Anjelica Mendoza MD Primary Care Provider Active Dr. Armando Chan MD Emergency Provider Active Dr. Suresh Crum DO Admit Provider, Other Provide r Active Dr. Cosmo Hernandez MD Attending Provider Active Team Status: Inactive Member Role Status Dates Dr. Anjelica Mendoza MD Primary Care Pro vider, Attending Provider, Referring Provider Active Team Status: Inactive Member Role Status Dates Dr. Anjelica Mendoza MD Primary Care Provider Active Dr. Chacorta Frey DO Emergency Provider Active Team Status: Inactive Member Role Status Dates Dr. Anjelica Mendoza MD Primary Care Provider Active Start: March 27, 2024 End: March 27, 2024 Dr. Anjelica Mendoza MD Attending Provider Active Start: March 27, 2024 End: March 27, 2024 Team Status: Inactive Member Role Status Dates Dr. Anjelica Mendoza MD Primary Care Provider Active Start: March 27, 2024 End: March 27, 2024 Dr. Anjelica Mendoza MD Attending Provider Active Start: March 27, 2024 End: March 27, 2024 Dr. Anjelica Mendoza MD Referring Provider Active Start: March 27, 2024 End: March 27, 2024 Team Status: Inactive Member Role Status Dates Dr. Anjelica Mendoza MD Primary Care Provider Active Start: April 01, 2024 End: April 01, 2024 Dr. Anjelica Mendoza MD Attending Provider Active Start: April 01, 2024 End: April 01, 2024 Dr. Anjelica Mendoza MD Referring Provider Active Start: April 01, 2024 End: April 01, 2024 Team Status: Inactive Member Role Status Dates Dr. Anjelica Mendoza MD Primary Care Provider Active Start: July 10, 2024 End: July 10, 2024 Dr. Anjelica Mendoza MD Referring Provider Active Start: July 10, 2024 End: July 10, 2024 LUCRECIA Pal Attending Provider Active Sta rt: July 10, 2024 End: July 10, 2024 Team Status: Inactive Member Role Status Dates Dr. Anjelica Mendoza MD Primary Care Provider Active Start: July 10, 2024 End: July 10, 2024 LUCRECIA Pal Attending Provider Active Sta rt: July 10, 2024 End: July 10, 2024 Arsen SINGER PA Referring Provider Active Sta rt: July 10, 2024 End: July 10, 2024 Team Status: Active Member Role/Relationship Status Dates Dr. Nurys Hutchinson MD Family Provider Active Dr. Anjelica Mendoza MD Primary Care Provider Active Team Status: Inactive Member Role/Relationship Status Dates Dr. Anjelica Mendoza MD Primary Care Provider Active Start: July 10, 2024 End: July 10, 2024 Dr. Anjelica Mendoza MD Referring Provider Active Start: July 10, 2024 End: July 10, 2024 Arsen SINGER PA Attending Provider Active Sta rt: July 10, 2024 End: July 10, 2024 Team Status: Inactive Member Role/Relationship Status Dates Dr. Anjelica Mendoza MD Primary Care Provider Active Start: July 10, 2024 End: July 10, 2024 LUCRECIA Pal Attending Provider Active Sta rt: July 10, 2024 End: July 10, 2024 LUCRECIA Pal Referring Provider Active Sta rt: July 10, 2024 End: July 10, 2024 Team Status: Inactive Member Role/Relationship Status Dates Dr. Anjelica Mendoza MD Primary Care Provider Active Start: July 21, 2024 End: July 21, 2024 Dr. Anjelica Mendoza MD Attending Provider Active Start: July 21, 2024 End: July 21, 2024 Team Status: Inactive Member Role/Relationship Status Dates Dr. Anjelica Mendoza MD Primary Care Provider Active Start: October 29, 2024 End: October 29, 2024 Dr. Anjelica Mendoza MD Attending Provider Active Start: October 29, 2024 End: October 29, 2024 Team Status: Active Member Role/Relationship Status Dates Dr. Anjelica Mendoza MD Primary Care Provider Active Start: October 29, 2024 Dr. Anjelica Mendoza MD Attending Provider Active Start: October 29, 2024 Dr. Anjelica Mendoza MD Referring Provider Active Start: October 29, 2024 Team Status: Inactive Member Role/Relationship Status Dates Dr. Anjelica Mendoza MD Primary Care Provider Active Start: October 29, 2024 End: October 29, 2024 Dr. Anjelica Mendoza MD Attending Provider Active Start: October 29, 2024 End: October 29, 2024 Dr. Anjelica Mendoza MD Referring Provider Active Start: October 29, 2024 End: October 29, 2024 FOR RECORDS PERTAINING TO PATIENTS WHO ARE [...] BE BASED ON THE PRIMARY CLINICAL RECORDS. [facility] [employer] [facility]. provides no warranty or guarantee of the accuracy or completeness of information in this document.
== END | disposition home or self-care (01) ==
LOC: LAB 14:12
PROVIDERS: PCP Internal Medicine; Referring Provider Internal Medicine; Visit Provider Internal Medicine
DX: M54.2 Cervicalgia (principal); M54.6 Pain in thoracic spine
CPT/HCPCS: 36415; 85652; 86140

== ENCOUNTER 2025-01-15 11:56 | Inpatient (IN) | payer MEDICARE, SELFPAY ==
[2025-01-15 11:58] VITALS: BP 138/75; PULSE 74; RESP 18; TEMP 36.4; O2SAT 100; BMI 18.8
--- NOTE | 2025-01-15 12:44 | EDS_ITS ---
HPI History of Present Illness HPI Narrative: Patient presents with left hip pain that has been getting worse over the past 5 to 6 days. Patient states it is constant. Patient denies any trauma or injury. Patient denies any falls. Patient states he is unable to stand due to the pain. Patient describes his pain as sharp. Patient states that the pain is worse with standing and movement. Patient denies any paresthesias or weakness. Patient denies any radiation of the pain down his leg. Chief Complaint: Lower Extremity Injury Informant: patient Onset/Context/Timing Onset: Days (5) Context: Gradual Onset Timing: Continuous Quality of Pain: Sharp Location: Left hip Worsened by: Movement, weightbearing Relieved by: Nothing Associated Symptoms Associated Symptoms: Negative for Parasthesia, Weakness or Loss of Funtion PFSH [facility] Medical History Non-smoker Left hip pain Polymyalgia rheumatica Diarrhea Cervical pain (neck) Easy fatigability Thoracic back pain Dry mouth Nausea Hypokalemia Port Plalcement PIN IN LEFT ARM Herpes zoster Hearing loss Carotid artery stenosis Adenocarcinoma of pancreas Home Medications Medication Instructions Recorded Last Taken Type Digestive Enzymes(mal,lac,inv) 2 tab PO/SL TIDCM DIGES TION 04/26/22 Unknown History aspirin 81 mg chewable tablet 81 mg PO BREAKFAST #30 t abs 04/27/22 Unknown Rx potassium chloride 20 mEq 20 meq PO TID #270 tabs 07/15 Unknown Rx tablet,extended release potassium chloride 20 mEq/15 mL 20 meq (15 mL) PO TID #1,500 mL 10/29/24 Unknown Rx oral liquid diphenoxylate-atropine 2.5 1 tab PO BID PRN diarrhea # 20 tabs 12/25/24 Unknown Rx mg-0.025 mg tablet prednisone 10 mg tablet 20 mg (2 x 10 mg) PO QDAY #9 0 tabs 01/12/25 Unknown Rx suzetrigine 50 mg tablet (Journavx) 50 mg PO BID PRN p ain #15 tabs 01/14/25 Unknown Rx Allergy/AdvReac Type Severity Reaction Status Date / Time acetaminophen (From Vicodin) AdvReac Intermediate Nausea/Vom/ Verified 01/15/25 12:02 Diarrhea hydrocodone (From Vicodin) AdvReac Intermediate Nausea/Vom/ Verified 01/15/25 12:02 Diarrhea Family History Son No problems noted. Sister Diabetes Mother CAD (coronary artery disease) Grandmother Breast cancer Surgical History whipple surgery History of cholecystectomy Social History Smoking Status: Never smoker alcohol intake: current alcohol intake frequency: holidays/special occasions only substance use type: does not use ROS ROS ED Constitutional Constitutional ED: Reports chills and subjective; Denies fever(s) Eyes Eyes: Denies blurry vision or change in vision ENT ENT ED: Denies rhinorrhea or sore throat Cardiovascular Cardiovascular: Denies chest pain or palpitations Respiratory/Chest Respiratory/Chest: Denies cough or dyspnea Gastrointestinal Gastrointestinal: Denies nausea or vomiting Genitourinary Genitourinary ED: Denies dysuria or hematuria Musculoskeletal Musculoskeletal: Reports back pain and neck pain Integumentary Denies abscess or rash Neurologic Neurologic: Denies headache(s) or weakness Allergic/Immunologic Allergic/Immunologic ED: Denies mouth swelling or urticaria EXAM Physical Exam Const Vital Signs: 01/15/25 11:58 Temperature 97.6 F L Temperature Source Oral Pulse Rate 74 Respiratory Rate 18 Blood Pressure 138/75 H Blood Pressure Mean 96 Pulse Ox 100 Positive well nourished and well developed Constitutional Narrative: BMI is 18.9. General Appearance ED: well developed and NAD HEENT Reports moist mucous membranes normocephalic and atraumatic Neck full ROM and supple Resp normal respiratory effort and clear to auscultation bilaterally Cardio regular rate and regular rhythm GI non-tender and non-distended Palpation: soft Extremity Extremity Narrative: There is tenderness over the anterior aspect of the left hip. Range of motion was limited in all motions of the left hip secondary to pain. There is no obvious deformity noted. The left hip was flexed. Pedal pulses are equal bilaterally. Sensation was intact to light touch bilaterally in the lower extremities. Strength is 5/5 bilaterally in the lower extremities. Neuro oriented x3, CN's II-XII intact bilaterally, moves all extremities and no sensory deficits noted Sensorium / Orientation: alert Motor Exam: strength 5/5 throughout Psych mental status grossly normal MDM MDM MDM Narrative Medical decision making narrative: Differential diagnosis includes hip fracture, contusion, sprain, electrolyte abnormality, anemia, and anxiety. X-rays of the left hip will be obtained to assess for fracture and dislocation. CBC will be obtained to assess for leukocytosis and anemia. Basic metabolic profile will be obtained to assess for electrolyte abnormality and renal function. Lab Data Attestation: I reviewed the patient's lab results. Lab results narrative: Basic metabolic profile was reviewed. Potassium was low at 2.1. CBC was reviewed. There is a mild anemia with a hemoglobin of 10.6 and hematocrit of 31.4. The remainder is within normal limits. Labs: Laboratory Results - last 24 hr 01/15/25 12:00 WBC 9.3 RBC 3.60 L Hgb 10.6 L Hct 31.4 L MCV 87.2 MCH 29.4 MCHC 33.8 RDW Std Deviation 44.9 H RDW Coeff of [place] 14.0 Plt Count 177 MPV 10.4 Immature Gran % (Auto) 1.200 H Neut % (Auto) 91.7 H Lymph % (Auto) 4.6 L Schleicher % (Auto) 2.1 Eos % (Auto) 0.3 Baso % (Auto) 0.1 Absolute Neuts (auto) 8.5 H Absolute Lymphs (auto) 0.43 L Nucleated RBC % 0 Sodium 137 Potassium 2.1 L* Chloride 103 Carbon Dioxide 20.9 L Anion Gap 12 BUN 17 Creatinine 0.90 Estim Creat Clear Calc 59.08 Est GFR (MDRD) Non-Af 91 BUN/Creatinine Ratio 19.0 Glucose 104 H Calcium 7.9 Radiography Diagnostic Testing: Clinical Impression(s) from Imaging Studies Hip/Pelvis X-Ray 01/15/25 13:50 IMPRESSION: No acute bony abnormalities. Reading Location: [facility] X-rays of the left hip were obtained. There are 3 views. On my independent interpretation, there is no acute fracture or dislocation noted. Radiologist also interpreted the x-rays and agrees. CT scan of the left hip was obtained. There is no acute fracture or dislocation. This was interpreted by the radiologist was also independently reviewed by myself. Management Discussion w/another healthcare provider: Hospitalist (Dr. Nicole) Treatment and Re-Evaluation Narrative: Patient was given an injection of morphine initially. Patient still was having pain after this. Patient was given a repeat dose of morphine. Because of the hypokalemia, patient was given oral and IV potassium. Patient's primary care physician called and case was discussed with him. He agrees with CT scan and possible admission for further evaluation. Patient was still unable to ambulate. Because of this, I recommended admission to the hospital. Case was discussed with the hospitalist. She will admit the patient to her service. Discharge Plan Triage Chief Complaint: Lower Extremity Injury ED Provider: Edgardo Florian Dx/Rx/DC Orders Clinical Impression: Intractable pain, Inability to ambulate due to hip, Pancreatic adenocarcinoma Prescriptions: No Action potassium chloride 20 mEq/15 mL liquid 20 meq PO TID Qty: 1500 3RF Rx Instructions: Pt. intolerant/unable to take tablet form of potassium. Fill as directed. Digestive Enzymes(mal,lac,inv) 2 tab PO/SL TIDCM aspirin 81 mg Tablet,Chewable 81 mg PO BREAKFAST Qty: 30 0RF potassium chloride 20 mEq tablet extended release 20 meq PO TID Qty: 270 1RF diphenoxylate-atropine 2.5-0.025 mg tablet 1 tab PO BID PRN (Reason: diarrhea) Qty: 20 0RF prednisone 10 mg tablet 20 mg PO QDAY Qty: 90 1RF Rx Instructions: Take 20 mg (2 tabs) daily. Take both tabs at same time. Take with food on the stomach. Journavx 50 mg tablet 50 mg PO BID PRN (Reason: pain) Qty: 15 0RF Primary Care Provider: Anjelica Mendoza Referrals: Anjelica Mendoza MD [Primary Care Provider, Internal Medicine - [facility]] Print Language: Greenlandic
[2025-01-15 13:10] LABS: Hematocrit 31.4 % (40-54); Hemoglobin 10.6 g/dL (13.0-16.5); Immature Granulocytes Count 0.110 X10^3/uL (0.0-0.0); Mean Corp Hgb Conc 33.8 g/dL (32-36); Mean Corpuscular Volume 87.2 fL (80-94); Mean Platelet Vol. 10.4 fl (6.2-12.0); NRBC Flagged by Analyzer 0 % (0-5); POSITIVE DIFFERENTIAL YES; Platelet Count 177 K/mm3 (150-450); RBC Distribution Width CV 14.0 % (11.6-14.6); RBC Distribution Width SD 44.9 fl (35.1-43.9); Red Blood Count 3.60 M/mm3 (4.6-6.2); White Blood Count 9.3 K/mm3 (4.4-11.0)
[2025-01-15 13:50] LABS: Anion Gap 12 (5-15); BUN 17 mg/dL (4-19); BUN/Creat Ratio 19.0 RATIO (10-20); Calcium,Total 7.9 mg/dL (7.6-11.0); Carbon Dioxide 20.9 mmol/L (21.0-32.0); Chloride 103 mmol/L (98-108); Estimated Creatinine Clearance 59.08 ml/min (50-250); Glucose 104 mg/dL (70-99); Potassium 2.1 mmol/L (3.3-5.1)
--- NOTE | 2025-01-15 13:50 | RAD_ITS ---
PROCEDURE: HIP, UNI W/ PELVIS 2-3 VIEWS 01/15/2025 REASON FOR EXAM: INJURY/PAIN TECHNIQUE: Procedure Code: RAD Modality: DX Procedure: HIP, UNI W/ PELVIS 2-3 VIEWS Laterality: Left COMPARISON: None. FINDINGS: Bones: No acute bony abnormalities. Joints: Unremarkable. No dislocation. Soft tissues: No soft tissue abnormalities. RAD/HIP, UNI W/ Pelvis 2-3 Views IMPRESSION: No acute bony abnormalities. Reading Location: [id number]
[2025-01-15] MEDS: Potassium Chloride Oral Tablet 20 MEQ 40 MEQ PO (14:35)
[2025-01-15] MEDS: Potassium Chloride 10mEq/100mL 10 MEQ/100 ML IV.SOLN. 100 MEQ IV BOLUS ×5 (14:36→23:03)
--- NOTE | 2025-01-15 15:30 | CT_ITS ---
PROCEDURE: CT EXTREMITY LOWER WITHOUT CONTRAST - LEFT 01/15/2025 REASON FOR EXAM: PAIN TECHNIQUE: Procedure Code: CTELWO Modality: CT Procedure: EXTREMITY LOWER WITHOUT CONTRA CT left hip without contrast. Coronal and Sagittal reconstruction series were provided. One or more dose reduction techniques were used (e.g., Automated exposure control, adjustment of the mA and/or kV according to patient size, use of iterative reconstruction technique). RADIATION DOSE SUMMARY: CTDlvol: 12.06 mGy DLP: 478.96 mGycm COMPARISON: Radiographs earlier same day 01/15/2025. FINDINGS: No acute fracture or dislocation. Left hip joint is intact, without erosion or substantial arthrosis. No osseous erosion/destruction or periosteal reaction is appreciated. Nonspecific small left hip joint effusion, potentially related to synovitis. Otherwise no significant abnormality visualized within the superficial soft tissues or left intrapelvic contents. CT/Extremity Lower without Contra IMPRESSION: No acute or aggressive osseous abnormality. Nonspecific small hip joint effusi on. Reading Location: [id number]
[2025-01-15 15:57] VITALS: BP 138/100; PULSE 89; RESP 16; O2SAT 98
--- NOTE | 2025-01-15 16:20 | ED.RN ---
iv frequently alarming occlusion, iv positional. potassium infusion delayed. disconnected for imaging. now reconnected.
--- NOTE | 2025-01-15 16:48 | PCM.HP.STD ---
HPI - General General Date of Admission: 01/15/25 Date of Service: 01/15/25 Chief Complaint: Left hip pain HPI Narrative MOUSTAPHA VASQUEZ, is a 74-year-old male with a history of PMR and adenocarcinoma of the pancreas as well as carotid artery stenosis who presented [facility] ED 01/15/2025 with left hip pain that has been worsening over the past 5 to 6 days. The pain is constant without any trauma or injury or recent falls. He is unable to stand due to the pain in his leg which she describes as sharp and is worse with standing and movement. In the ED temp 97.6, heart rate 74, blood pressure 138/75, respiratory rate 18 pulse ox 100% on room air. CBC with white count 9.3 and hemoglobin 10.6. Potassium 2.1, BUN 17 and a creatinine 0.90. Hip x-ray no acute bony abnormalities. Lower extremity CT ordered and read pending however given patient's inability to ambulate hospitalist contacted for admission. Patient evaluated bedside. He reports that he had an MRI for back pain not long ago and they saw inflammation in his back, neck, and shoulders so he was given steroids which helped significantly but he has resurgence of symptoms as he comes off of the steroids. He reports that since he went down to 2 steroid pills on he has had significant pain in his left hip which is painful when he pushes on it and when he walks on it or straighten/moves it. Said very specifically this started with onset of steroid decrease and he feels like his pain is worse right now because he missed his dose of steroids today. Denies any other joint pain, feels generally weak but no focal weakness or sensory changes, no fevers, no other new or acute complaints [facility] Medical History Non-smoker Left hip pain Polymyalgia rheumatica Diarrhea Cervical pain (neck) Easy fatigability Thoracic back pain Dry mouth Nausea Hypokalemia [place] Plalcement PIN IN LEFT ARM Herpes zoster Hearing loss Carotid artery stenosis Adenocarcinoma of pancreas Home Medications Medication Instructions Recorded Last Taken Type Digestive Enzymes(mal,lac,inv) 2 tab PO/SL TIDCM DIGESTION 04/26/22 Unknown History aspirin 81 mg chewable tablet 81 mg PO BREAKFAST #30 tabs 04/27/22 Unknown Rx potassium chloride 20 mEq 20 meq PO TID #270 tabs 10/23/24 Unknown Rx tablet,extended release potassium chloride 20 mEq/15 mL 20 meq (15 mL) PO TID #1,500 mL 10/29/24 Unknown Rx oral liquid diphenoxylate-atropine 2.5 1 tab PO BID PRN diarrhea #20 tabs 12/25/24 Unknown Rx mg-0.025 mg tablet prednisone 10 mg tablet 20 mg (2 x 10 mg) PO QDAY #90 tabs 01/12/25 Unknown Rx suzetrigine 50 mg tablet (Journavx) 50 mg PO BID PRN pain #15 tabs 01/14/25 Unknown Rx Allergy/AdvReac Type Severity Reaction Status Date / Time acetaminophen (From Vicodin) AdvReac Intermediate Nausea/Vom/ Verified 01/15/25 12:02 Diarrhea hydrocodone (From Vicodin) AdvReac Intermediate Nausea/Vom/ Verified 01/15/25 12:02 Diarrhea Family History Son No problems noted. Sister Diabetes Mother CAD (coronary artery disease) Grandmother Breast cancer Surgical History whipple surgery History of cholecystectomy Social History Smoking Status: Never smoker alcohol intake: current alcohol intake frequency: holidays/special occasions only substance use type: does not use ROS ROS Narrative General: Denies fever/chills HENT: Denies headache, denies stuffy nose, denies sore throat EYES: Denies changes in vision Resp: Denies cough, denies shortness of breath Cardiac: Denies chest pain GI: Denies abdominal pain, denies changes in bowel, denies nausea/vomiting : Denies changes in urination Extremity: Denies swelling MSK: General weakness, left hip/groin pain Neuro: Denies any numbness/tingling Heme: Denies any bleeding or bruising Skin: Denies rashes Psychiatric: No complaints voiced Vital Signs Vital Signs Vital Signs: 01/15/25 11:58 Temperature 97.6 F L Temperature Source Oral Pulse Rate 74 Respiratory Rate 18 Blood Pressure 138/75 H Blood Pressure Mean 96 Pulse Ox 100 Weight Weight: 56.3 kg Body Mass Index (BMI) 18.8 Physical Exam Narrative General: Alert, oriented, no apparent distress but does appear uncomfortable when he is moving HEENT: Atraumatic, normocephalic Eyes: Anicteric, normal conjunctiva, extraocular movements grossly intact Neck: Supple Respiratory: Clear to auscultation bilaterally, normal respiratory effort Cardiovascular: Regular rate and rhythm GI: Soft, nontender, nondistended Extremities: No edema Musculoskeletal: Moving all extremities but resistant to moving left lower extremity so keeps it flexed due to pain, tender to palpation when pushing on anterior hip area and notes some pain laterally and up his thigh Neuro: No overt focal neurological deficits Skin: No rashes appreciated Psych: Cooperative Results Lab / Micro Data 01/15/25 12:00 01/15/25 12:00 Labs: Laboratory Results - last 24 hr 01/15/25 12:00: WBC 9.3, RBC 3.60 L, Hgb 10.6 L, Hct 31.4 L, MCV 87.2, MCH 29.4, MCHC 33.8, RDW Std Deviation 44.9 H, RDW Coeff of [place] 14.0, Plt Count 177, MPV 10.4, Immature Gran % (Auto) 1.200 H, Neut % (Auto) 91.7 H, Lymph % (Auto) 4.6 L, [place] % (Auto) 2.1, Eos % (Auto) 0.3, Baso % (Auto) 0.1, Absolute Neuts (auto) 8.5 H, Absolute Lymphs (auto) 0.43 L, Nucleated RBC % 0, Sodium 137, Potassium 2.1 L*, Chloride 103, Carbon Dioxide 20.9 L, Anion Gap 12, BUN 17, Creatinine 0.90, Estim Creat Clear Calc 59.08, Est GFR (MDRD) Non-Af 91, BUN/Creatinine Ratio 19.0, Glucose 104 H, Calcium 7.9 Imaging Radiology Impression Hip/Pelvis X-Ray 01/15/25 13:50 IMPRESSION: No acute bony abnormalities. Reading Location: [facility] Assessment & Plan Assessment/Plan (1) Left hip pain: PLAN: Plan # Increasing left hip pain -Hip x-ray no acute process -Lower extremity CT official read pending -Reports very specifically that this pain started when he decreased dose of steroids, discussed going back up on the steroids and patient presently refusing, said he wants to completely get off of the steroids and does not want to go backwards and go up at this time, discussed that we can try supportive care with anti-inflammatories and pain control but if that does not work may need to give higher dose of steroids and have him follow-up with rheumatology -Will continue 20 mg of prednisone which is what patient was supposed to be on 1 try scheduled Tylenol, Toradol and pain control -ESR and CRP were ordered in ED and are pending - PT/OT -Pain control -Supportive care -Case management consult # Hypokalemia -Potassium 2.1 -Patient reports he had ran out of his potassium and due to pain in his leg he had not gone and refilled it so he has not taken potassium in several days -Will replace and repeat BMP # History of pancreatic adenocarcinoma -Status post chemo, reportedly no active disease # History of carotid stenosis - Per chart review -Continue aspirin #DVT ppx: SCDs Isabelle Nicole MD Charges/Coding Visit Charges Inpatient E&M: 40999 Init Hosp L2
[2025-01-15 17:10] LABS: CRP 93.30 mg/L (0.0-3.0)
--- OUTSIDE RECORDS SUMMARY | 2025-01-15 17:45 | XMS RPT_ITS | CCD ---
Author Organization [facility]ini[employer] Care Team Providers [place] Extension Agent Name Role Phone SURESH CRUM Attending Unavailable [...] Dejesus Attending Provider Reji AGUERO, Dr. Dejesus Primary Care Provider Reji AGUERO, Dr. Dejesus Attending Provider Reji AGUERO, Dr. Dejesus Referring Provider Reji, Anjelica Primary Care Unavailable Reji, [...] Unavailable Reji, Anjelica Referring Unavailable Reji, Anjelica Attending Unavailable Reji, Anjelica Primary Care Unavailable Reji, Anjelica Primary Care Unavailable Reji, Anjelica Attending Unavailable Reji, Anjelica Primary Care Unavailable Reji, Anjelica Attending Unavailable Reji, Anjelica Primary Care Unavailable Bhavin PA, Arsen Attending Unavailable Reji, Anjelica Referring Unavailable Reji, Anjelica Primary Care Unavailable Reji, Anjelica Attending Unavailable Reji, Anjelica Referring Unavailable Reji, Anjelica Primary Care Unavailable Bhavin PA, Arsen Attending Unavailable Arsen Flanagan Referring Unavailable Reji, Anjelica Primary Care Unavailable Anjelica Mendoza Attending Unavailable Anjelica Mendoza Referring Unavailable Allergies Allergy Classification Reported Allergen(s) Allergy Type Date of Onset Reaction(s) Facility (1 source) Acetaminophen Drug Allergy 01-14-2025 [facility] Repository (1 source) HYDROcodone Drug Allergy 01-14-2025 [facility] Repository Medications Current Medications Medication Drug Class(es) Dates [...] 1:00am April 07, 2021 4:08pm blood thinner atropine sulfate 0.025 mg / diphenoxylate hydrochloride 2.5 mg oral tablet (1 source) Anticholinergic, Cholinergic Muscarinic Antagonist, Antidiarrheal Start: 12-15-2024 Diphenoxylate-Atropine 2.5-0.025 mg tablet Active 1 {tbl} PO TWICE A DAY as needed for diarrhea 10 0 December 15, 2024 12:00am benzocaine 15 mg / menthol 2.6 mg oral lozenge (3 sources) Standardized Chemical Allergen Start: 04-28-2021 Benzocaine-Menthol Active 1 LOZENGE MUCOUS MEM Q2H 16 April 28, 2021 1:00am Digestive Enzymes(mal,lac,inv ) (13 sources) Start: 04-26-2022 Digestive Enzymes(mal,lac,inv) Active 2 [...] 1.33 meq/ml oral solution (20 sources) Start: 10-29-2024 take 1 tablet by mouth three times [...] release Discontinued 20 meq PO DAILY 30 0 April 27, 2022 1:00am June 29, 2022 12:56pm Start: 09-26-2021 take 20 mEq by mouth twice daily Potassium Chloride Active 20 MEQ PO TWICE A DAY September 26, 2021 12:00am predniSONE 10 mg oral tablet (6 sources) Start: 12-08-2024 take 2 tablets by mouth once daily at mealtime Prednisone 10 mg tablet Active 20 mg PO daily 90 1 December 08, 2024 9:50am Take 20 mg (2 tabs) daily. Take both tabs at same time. Take with food on the stomach. Start: 12-05-2024 End: 12-08-2024 take 4 tablets by mouth once daily at mealtime Prednisone 10 mg tablet Discontinued 40 mg PO daily 28 7 0 December 05, 2024 12:00am December 11, 2024 12:00am December 08, 2024 9:51am Take 40 mg (4 tabs) daily. Take all 4 tabs at same time. Take with food on the stomach. Completed/Discontinued Medications Medication Drug Class(es) Dates Sig (Normalized) Sig (Original) amylase 19418 unt / lipase 3000 unt / protease 9500 unt delayed release oral capsule (20 sources) Start: 06-01-2020 End: 04-07-2021 Elotxs-Wjhuhmtl-Vcur ase 3,000-9,500- 15,000 unit capsule,delayed release(DR/EC) Discontinued 1 NMA PO 3 TIMES DAILY WITH MEALS 90 February 16, 2021 2:40pm April 07, 2021 4:08pm Start: 06-01-2020 End: 04-07-2021 take 1 capsule by mouth three times daily at mealtime Zbmlzc-Bhypfadn-Preckys Discontinued 1 CAP PO 3 TIMES DAILY WITH MEALS February 16, 2021 1:40pm April 07, 2021 3:08pm atorvastatin 40 mg oral tablet (12 sources) HMG-CoA Reductase Inhibitor Start: 04-27-2022 End: 05-08-2022 take 1 tablet by mouth at bedtime Atorvastatin (Lipitor) 40 mg tablet Discontinued 40 mg PO AT BEDTIME 30 0 April 27, 2022 1:00am May 08, 2022 2:43pm benzonatate 100 mg oral capsule (9 sources) Non-narcotic Antitussive Start: 07-10-2024 End: 07-21-2024 take 2 capsules by mouth three times daily as needed for cough Benzonatate 100 mg capsule Discontinued 200 mg PO THREE TIMES A DAY as needed for cough 30 0 July 10, 2024 12:00am July 21, 2024 10:05am Start: 01-06-2022 take 200 mg by mouth three times daily Benzonatate Active 200 MG PO THREE TIMES A DAY April 28, 2021 1:00am erythromycin 250 mg oral tablet (16 sources) Macrolide, Macrolide Antimicrobial Start: 06-01-2020 End: [...] 1:20pm Food Supplemt, Lactose-Reduced 120 ML liquid (6 sources) Start: 06-01-2020 End: 01-03-2021 take 1 [...] 2021 1:20pm lisinopril 10 mg oral tablet (16 sources) Angiotensin Converting Enzyme Inhibitor Start: 06-01-2020 End: 06-07-2020 take 1 tablet by mouth once daily Lisinopril 10 MG tablet Discontinued 10 mg PO DAILY 30 0 June 01, 2020 1:00am June 07, 2020 2:54pm loperamide hydrochloride 2 mg oral tablet (19 sources) Opioid Agonist Start: 04-07-2021 End: 09-26-2021 take 1 tablet by mouth once daily as needed, then take 2 tablets by mouth once daily as needed Loperamide (Imodium A-D) 2 mg tablet Discontinued 0 PO DAILY as needed for loose stool 30 April 07, 2021 1:00am September 26, 2021 2:56pm Take one or two tabs daily as needed. ondansetron 4 mg disintegrating oral tablet (16 sources) Serotonin-3 Receptor Antagonist Start: 06-01-2020 End: [...] 2020 4:27pm sertraline 50 mg oral tablet (16 sources) Serotonin Reuptake Inhibitor Start: 06-01-2020 End: 09-09-2020 take 1 tablet by mouth once daily Sertraline 50 MG tablet Discontinued 50 mg PO DAILY 30 June 01, 2020 1:00am September 09, 2020 4:23pm Problems Active Problems Problem Classification Problem Date Documented Da te Episodic/Chronic Abdominal pain (16 sources) Abdominal pain; Translations: [Unspecified abdominal pain] 05-27-2020 Episodic Administrative/social admission (20 sources) Patient encounter status; Translations: [Counseling, unspecified] 05-27-2020 Episodic Biliary tract disease (16 sources) Obstruction of biliary tree; 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 Blindness and vision defects (16 sources) Eye / vision finding; Translations: [Unspecified visual disturbance] 05-27-2020 Episodic Cancer of pancreas (20 sources) Adenocarcinoma of pancreas; Translations: [Malignant neoplasm of pancreas, unspecified] Onset: 01-14-2025 Chronic Complications of surgical procedures or medical care (20 sources) Post-gastrointestina l tract surgery malnutrition; Translations: [Postsurgical malabsorption, not elsewhere classified] Chronic Diabetes mellitus without complication (20 sources) Hyperglycemia; Translations: [Hyperglycemia, unspecified] Episodic Diseases of mouth; excluding dental (7 sources) Xerostomia; Translations: [Dry mouth, unspecified] 07-21-2024 Episodic Fluid and electrolyte disorders (20 sources) Hyponatremia; Translations: [Hypo-osmolality and hyponatremia] Onset: 11-04-2024 Episodic Malaise and fatigue (8 sources) Tires quickly; Translations: [Other fatigue] 10-29-2024 Episodic Nutritional deficiencies (16 sources) Malignant cachexia; 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] 06-08-2020 Episodic Other circulatory disease (16 sources) Elevated blood-pressure reading without diagnosis of hypertension; Translations: [Elevated blood-pressure reading, without diagnosis of hypertension] 05-27-2020 Episodic Other connective tissue disease (5 sources) Neurological symptom; Translations: [Unspecified symptoms and signs involving the nervous system] Episodic Other connective tissue disease (7 sources) Pain in lower limb; Translations: [Pain in leg, unspecified] 06-15-2023 Episodic Other gastrointestinal disorders (20 sources) Loose stool; Translations: [Other fecal abnormalities] 04-07-2021 Episodic Other gastrointestinal disorders (16 sources) Constipation; Translations: [Constipation, unspecified] 05-27-2020 Episodic Other gastrointestinal disorders (3 sources) Other fecal abnormalities; Translations: [Abnormal feces] Episodic Other gastrointestinal disorders (1 source) Diarrhea, unspecified; Translations: [Diarrhea, unspecified] Onset: 01-14-2025 Episodic Other hematologic conditions (16 sources) MCV - raised; Translations: [Other abnormality of red blood cells] 09-26-2021 Episodic Other liver diseases (16 sources) Lesion of liver; Translations: [Liver disease, unspecified] 05-27-2020 Chronic Other lower respiratory disease (16 sources) Nodule of lung; Translations: [Solitary pulmonary nodule] 05-27-2020 Episodic Other nutritional; endocrine; and metabolic disorders (16 sources) Loss of appetite; Translations: [Anorexia] 06-08-2020 Episodic Other nutritional; endocrine; and metabolic disorders (16 sources) Abnormal weight loss; Translations: [Abnormal weight loss] 06-07-2020 Episodic Spondylosis; intervertebral disc disorders; other back problems (20 sources) Chronic back pain ; Translations: [Dorsalgia, unspecified] Onset: 10-29-2024 06-07-2020 Episodic Transient cerebral ischemia (20 sources) Transient cerebral ischemia; 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, unspecified] Chronic Unclassified (16 sources) Age more than 65 years; Translations: [Over 65 years old] 05-03-2021 Unclassified (14 sources) whipple surgery 11-12-2021 Unclassified (1 source) Cough, unspecified; Translations: [Cough, unspecified] Onset: 07-18-2024 Viral infection (16 sources) Disease caused by 2019-nCoV; Translations: [COVID-19] 05-03-2021 Episodic Past or Other Problems Problem Classification Problem Date Documented Da te Episodic/Chronic Influenza (10 sources) Influenza due to Influenza A virus; Translations: [Influenza due to other identified influenza virus with other respiratory manifestations] Onset: 07-11-2024 07-10-2024 Episodic Nausea and vomiting (20 sources) Nausea and vomiting; Translations: [Nausea with vomiting, unspecified] Onset: 04-30-2024 06-07-2020 Episodic Other nutritional; endocrine; and metabolic disorders (1 source) Anorexia; Translations: [Anorexia] Onset: 03-27-2024 Episodic Unclassified (13 sources) PIN IN LEFT ARM 11-12-2021 Comment on above: 2003 Unclassified (13 sources) [place] 11-12-2021 Comment on above: October 2019 removed Results Test Name Value Interpretation Reference Range Facility /[place]ar 12-18-2024 /MATHIEU [facility] [address] [place], [place] [address] OFFICE VISIT Date of Service: 12/18/24 MR#: [id number] Acct: [id number] Name: CHRISTINAMOUSTAPHA Rep #: [id number] : 1950 Provider: Dr. Anjelica crawford MD Age/Sex: 74/M Location: [facility] Status: Signed Intake Vital Signs 10/29/24 11:11 12/18/24 10:35 Height 5 ft 8 in 5 ft 8 in Weight: 131 lb 8 oz 126 lb 4 oz BMI 20.0 19.2 BP 98/58 L 119/73 Blood Pressure Location Lt brachial Rt brachial Position Sitting Sitting Respiration 16 16 Pulse 72 69 Pulse Source Monitor Monitor Temp 98.6 F 98.4 F Temp Source Temporal Temporal Pulse Oximetry (%) 97 98 Oxygen Delivery Method room air room air Intake Visit Reasons: 2 WK FU Chief Complaint: Back pain Promotions Assistant Sales Marketing Required: No Accompanied by: Self Is patient in pain?: Yes (Back pain ) Pain scale (1-10): 4 Allergies No Known Allergies Allergy (Verified 12/18/24 10:29) Medications ???Medication ???Instructions ???Recorded ???Confirmed ???Type Digestive Enzymes(mal,lac,inv) 2 tab PO/SL TIDCM DIGESTION 12/18/24 History aspirin 81 mg chewable tablet 81 mg PO BREAKFAST #30 tabs 12/18/24 Rx potassium chloride 20 mEq 20 meq PO TID #270 tabs 10/23/24 0 12/18/24 Rx tablet,extended release potassium chloride 20 mEq/15 mL 20 meq (15 mL) PO TID #1,500 mL 12/18/24 Rx oral liquid prednisone 10 mg tablet 20 mg (2 x 10 mg) PO QDAY #90 tabs 12/08/24 12/18/24 Rx diphenoxylate-atropine 2.5 1 tab PO BID PRN diarrhea #10 tabs 12/15/24 12/18/24 Rx mg-0.025 mg tablet Have you fallen in the past year?: No PFSH Medical History (Updated 12/18/24 @ 13:[address] Anjelica Mendoza MD) Polymyalgia rheumatica Diarrhea Cervical pain (neck) Easy fatigability Thoracic back pain Dry mouth [...] not use HPI HPI Chief Complaint: Back pain Details: MOUSTAPHA VASQUEZ, is a 74 M who presents to the office today for 2-week follow-up after he started on prednisone for shoulder, neck, back and low back pain, and the tentative diagnosis of PMR. Sed rate and CRP were elevated, at least consistent with PMR. He had marked improvement, within 24 hours of starting prednisone 40 mg. He states he had a little bit of recurrence while he was still at 40 mg daily. However I was unaware of that. In any event he was reduced to 20 mg daily about 1 week ago and has overall been much better across the shoulders, neck, arms with does have some intermittent back pain, upper lumbar area, mostly states towards the evenings. It will be relatively short-lived but somewhat intense pain he states. He had MRI obtained of the thoracic and cervical spine due to the significant degree of pain issues and his history of pancreatic adenocarcinoma. He has not had any evidence of clear intra-abdominal recurrence or recurrence elsewhere of adenocarcinoma at this point and the MRIs did not show any significant bothersome findings. In addition he also had diarrhea for a few days, and while things settle down somewhat, and he has used a little bit of Lomotil, he still has some bowel irregularity. He describes the stools as segmented, pieces but brown, softer but formed. No pain associated with bowel movements, no cramping, no fever no chills. In regards to the back pain he is using some Tylenol and pain cream as needed which is not unreasonable. Review of systems per chart. Physical exam. Vital signs on chart. I am not performing significant new physical exam today. See prior exam from a couple of weeks ago. ROS Const Constitutional: No body ache, chills, excessive sweating, fatigue, fever(s), frequent falls, headache(s), snoring, weakness or change in appetite Eyes Eyes: No blurry vision, change in vision, eye pain or Light sensitivity ENT ENT: No abnormal hearing, ear or mastoid pain, tinnitus, nasal congestion, headache(s), neck pain or sore throat Resp Respiratory: No cough, shortness of breath, snoring or wheezing Cardio Cardiology: No chest pain at rest, chest pain with exertion, excessive sweating, dyspnea on exertion, lightheadedness, orthopnea or palpitations Gastro GI: Positive (more content not included)... Normal [facility] CRPon 12-05-2024 C-REACTIVE PROT 8.64 mg/L High 0.0-3.0 [facility] Comment on above: Performed By: #### L 101.9900, L501.6710 #### [facility] [address] [place], [address] Erythrocyte Sed Rateon 12-05 SED RATE 31 mm/hr [facility] [address] Comment on above: Performed By: #### L 101.9900, L501.6710 ####[facility] [address] [place], [address] Erythrocyte sedimentation ra teOrdered By: Anjelica Mendoza on 12-05-2024 ESR (Bld) [Velocity] 31 mm/h [facility] [address] [facility] Magnetic resonance imaging r eportOrdered By: Antoinette Chavez on 12-05-2024 Study report [facility] Imaging Services [address] [facility] [address] Spine Cervical (Routine) MR#: [id number] Acct: [id number] Name: MOUSTAPHA VASQUEZ Rep #: [id number] : 1950 M 74 From: Sagar Chavez MD PCP: Dr. Anjelica Mendoza MD Status: REG CLI Study:Spine Cervical (Routine) Date of Exam: 12/04/24 Exam# [id number] Ordering Dr: Anjelica Mendoza MD PROCEDURE: SPINE CERVICAL (ROUTINE) 12/04/2024 REASON FOR EXAM: CERVICAL NECK PAIN, HISTORY OF PANCREATIC CA TECHNIQUE: SPINE CERVICAL (ROUTINE) Multiplanar and multisequence images were obtained without IV contrast administration. COMPARISON: None. FINDINGS: Vertebrae: Cervical vertebral body heights are preserved. Bone marrow signal is unremarkable. Alignment: Normal. No spondylolisthesis. Spinal Cord: Cervical spinal cord is of normal size and signal intensities. Structures at the foramen magnum are unremarkable. C2-3: Unremarkable C3-4: Unremarkable C4-5: Unremarkable C5-6: Disc desiccation. Left paracentral disc osteophyte complex measures 3 mm. Severe left foramina stenosis. No canal stenosis. C6-7: Uncovertebral hypertrophy. Mild bilateral foramina stenosis. No canal stenosis. C7-T1: Unremarkable MRI/Spine Cervical (Routine) IMPRESSION: C5-6, disc desiccation. Left paracentral disc osteophyte complex measures 3 mm.Severe left foramina stenosis. No canal stenosis. Reading Location: [facility] CC: Dr. Anjelica Mendoza MD ~ Street Supervisor: Signed [facility] Serum or plasma C reactive p rotein measurement (mass/volume)Ordered By: Anjelica Mendoza on 12-05-2024 CRP [Mass/Vol] 8.64 mg/L High 0.0-3.0 [facility] Magnetic resonance imaging r eportOrdered By: Bryon Menezes on 12-04-2024 Study report [facility] Imaging Services [address] [place] [address] Spine Thoracic (Routine) MR#: [id number] Acct: [id number] Name: MOUSTAPHA VASQUEZ Rep #: [id number] : 1950 M 74 From: Fernando Menezes MD PCP: Dr. Anjelica Mendoza MD Status: REG CLI Study:Spine Thoracic (Routine) Date of Exam: 12/04/24 Exam# [id number] Ordering Dr: Anjelica Mendoza MD PROCEDURE: SPINE THORACIC (ROUTINE) 12/04/2024 REASON FOR EXAM: THORACIC BACK PAIN, HISTORY OF PANCREATIC CA TECHNIQUE: SPINE THORACIC (ROUTINE) Multiplanar and multisequence images were obtained. CONTRAST: None COMPARISON: October 29, 2024 x-ray FINDINGS: Vertebrae: Vertebral body height is preserved. No fracture seen. No bone marrow edema identified. No significant exit foraminal narrowing seen. Alignment: Normal thoracic kyphosis. Spinal Cord: No abnormal signal within the spinal cord. No central stenosis. Thoracic aorta is normal caliber. Branching pattern is conventional of the aortic arch. No mass is identified. MRI/Spine Thoracic (Routine) IMPRESSION: No acute abnormality Reading Location: [id number] CC: Dr. Anjelica Mendoza MD ~ Street Supervisor: Signed [facility] Spine Cervical (Routine)on 0 12-04-2024 Spine Cervical (Routine) [facility] Imaging Services [address] [place] [id number] Spine Cervical (Routine) MR#: [id number] Acct: [id number] Name: MOUSTAPHA VASQUEZ Rep #: [id number] : 1950 74 From: Antoinette Chavez MD PCP: Dr. Anjelica Mendoza MD Status: REG CLI Study: Spine Cervical (Routine) Date of Exam: Exam# [id number] Ordering Dr: Anjelica eMndoza MD PROCEDURE: SPINE CERVICAL (ROUTINE) 12/04/2024 REASON FOR EXAM: CERVICAL NECK PAIN, HISTORY OF PANCREATIC CA TECHNIQUE: SPINE CERVICAL (ROUTINE) Multiplanar and multisequence images were obtained without IV contrast administration. COMPARISON: None. FINDINGS: Vertebrae: Cervical vertebral body heights are preserved. Bone marrow signal is unremarkable. Alignment: Normal. No spondylolisthesis. Spinal Cord: Cervical spinal cord is of normal size and signal intensities. Structures at the foramen magnum are unremarkable. C2-3: Unremarkable C3-4: Unremarkable C4-5: Unremarkable C5-6: Disc desiccation. Left paracentral disc osteophyte complex measures 3 mm. Severe left foramina stenosis. No canal stenosis. C6-7: Uncovertebral hypertrophy. Mild bilateral foramina stenosis. No canal stenosis. C7-T1: Unremarkable MRI/Spine Cervical (Routine) IMPRESSION: C5-6, disc desiccation. Left paracentral disc osteophyte complex measures 3 mm. Severe left foramina stenosis. No canal stenosis. Reading Location: [id number] CC: Dr. Anjelica Mendoza MD Street Supervisor: Signed Normal [facility] Spine Thoracic (Routine)on 0 12-04-2024 Spine Thoracic (Routine) [facility] Imaging Services [address] [place] [address] Spine Thoracic (Routine) MR#: [id number] Acct: [id number] Name: MOUSTAPHA VASQUEZ Rep #: [id number] : 1950 M 74 From: Bryon Menezes MD PCP: Dr. Anjelica Mendoza MD Status: REG CLI Study: Spine Thoracic (Routine) Date of Exam: Exam# [id number] Ordering Dr: Anjelica Mendoza MD PROCEDURE: SPINE THORACIC (ROUTINE) 12/04/2024 REASON FOR EXAM: THORACIC BACK PAIN, HISTORY OF PANCREATIC CA TECHNIQUE: SPINE THORACIC (ROUTINE) Multiplanar and multisequence images were obtained. CONTRAST: None COMPARISON: October 29, 2024 x-ray FINDINGS: Vertebrae: Vertebral body height is preserved. No fracture seen. No bone marrow edema identified. No significant exit foraminal narrowing seen. Alignment: Normal thoracic kyphosis. Spinal Cord: No abnormal signal within the spinal cord. No central stenosis. Thoracic aorta is normal caliber. Branching pattern is conventional of the aortic arch. No mass is identified. MRI/Spine Thoracic (Routine) IMPRESSION: No acute abnormality Reading Location: [facility] CC: Dr. Anjelica Mendoza MD Street Supervisor: Signed Normal [facility] Absolute lymphocyte countOrd ered By: Anjelica Mendoza on 10-29-2024 Lymphocytes Auto (Unsp spec) [#/Vol] 0.63 10*3/uL Low 0.83-4.51 [facility] Absolute neutrophil countOrd ered By: Anjelica Mendoza on 10-29-2024 Neutrophils (Bld) [#/Vol] 3.8 10*3/uL 2.0-7.7 [facility] Anion gap in Serum or Plasma Ordered By: Anjelica Mendoza on 10-29-2024 Anion gap [Moles/Vol] 8 mmol/L 5-15 [facility] Automated lymphocyte count a s percentage of total leukocytesOrdered By: Anjelica Mendoza on 10-29-2024 Lymphocytes/100 WBC Auto (Unsp spec) 12.1 % Low 19-41 [facility] BUN/creatinine ratioOrdered By: Anjelica Mendoza on 10-29-2024 Urea nitrogen/Creatinine [Mass ratio] 11.7 mg/mg 10-20 [facility] Basophil percentageOrdered B y: Anjelica Mendoza on 10-29-2024 Basophils/100 WBC (Bld) 0.8 % 0-1 [facility] Bilirubin, totalOrdered By: Anjelica Mendoza on 10-29-2024 Bilirubin [Mass/Vol] 0.26 mg/dL 0.00-1.30 [facility] CBC W/Diff, Automatedon 07 Absolute Lymph 0.63 X10 3/uL Low 0.83-4.51 [facility] Comment on above: Performed By: #### L 100.0100, L501.5200, L501.2450, L500.4050 ####[facility] [address] [place], [address] Absolute Neut 3.8 X10 3/uL Normal 2.0-7.7 [facility] Comment on above: Performed By: #### L 100.0100, L501.5200, L501.2450, L500.4050 ####[facility] [address] [place], [address] Basophils/100 WBC (Bld) 0.8 % Normal 0-1 [facility] Comment on above: Performed By: #### L 100.0100, L501.5200, L501.2450, L500.4050 ####[facility] [address] [place], [address] Eosinophils/100 WBC (Bld) 5.4 % High 0-5 [facility] Comment on above: Performed By: #### L 100.0100, L501.5200, L501.2450, L500.4050 ####[facility] [address] [place], [address] Erythrocyte distribution width (RBC) [Ratio] 13.5 % Normal 11.6-14.6 [facility] Comment on above: Performed By: #### L 100.0100, L501.5200, L501.2450, L500.4050 ####[facility] [address] [place], [address] Hematocrit (Bld) [Volume fraction] 33.2 % Low 40-54 [facility] Comment on above: Performed By: #### L 100.0100, L501.5200, L501.2450, L500.4050 ####[facility] [address] [place], [address] Hemoglobin (Bld) [Mass/Vol] 10.9 g/dL Low 13.0-16.5 [facility] Comment on above: Performed By: #### L 100.0100, L501.5200, L501.2450, L500.4050 ####[facility] [address] [place], [address] IG% 0.200 Normal 0.0-0.9 [facility] Comment on above: Result Comment: IG% - Immature Granulocytes (promyelocytes, myelocytes and metamyelocytes) > 1% indicates that a LEFT SHIFT is Present. Performed By: #### L 100.0100, L501.5200, L501.2450, L500.4050 ####[facility] [address] [place], [address] Lymphocytes/100 WBC (Bld) 12.1 % Low 19-41 [facility] Comment on above: Performed By: #### L 100.0100, L501.5200, L501.2450, L500.4050 ####[facility] [facility] [address] [place], [address] MCH (RBC) [Entitic mass] 32.5 pg High 27.0-32.0 [facility] Comment on above: Performed By: #### L 100.0100, L501.5200, L501.2450, L500.4050 ####[facility] [address] [place], [address] MCHC (RBC) [Mass/Vol] 32.8 g/dL Normal 32-36 [facility] Comment on above: Performed By: #### L 100.0100, L501.5200, L501.2450, L500.4050 ####[facility] [address] [place], [address] MCV (RBC) [Entitic vol] 99.1 fL High 80-94 [facility] Comment on above: Performed By: #### L 100.0100, L501.5200, L501.2450, L500.4050 ####[facility] [address] [place], [address] Monocytes/100 WBC (Bld) 7.7 % Normal 0-10 [facility] Comment on above: Performed By: #### L 100.0100, L501.5200, L501.2450, L500.4050 ####[facility] [address] [place], [address] Neutrophils/100 WBC (Bld) 73.8 % High 47-70 [facility] Comment on above: Performed By: #### L 100.0100, L501.5200, L501.2450, L500.4050 ####[facility] [address] [place], [address] Nucleated RBC (Bld) [#/Vol] 0 10*3/uL Normal 0-5 [facility] Comment on above: Performed By: #### L 100.0100, L501.5200, L501.2450, L500.4050 ####[facility] [address] [place], [address] Platelet mean volume (Bld) [Entitic vol] 8.7 fL Normal 6.2-12.0 [facility] Comment on above: Performed By: #### L 100.0100, L501.5200, L501.2450, L500.4050 ####[facility] [address] [place], [address] Platelets (Bld) [#/Vol] 424 10*3/uL Normal 150-450 [facility] Comment on above: Performed By: #### L 100.0100, L501.5200, L501.2450, L500.4050 ####[facility] [address] [place], [address] RBC (Bld) [#/Vol] 3.35 10*6/uL Low 4.6-6.2 [facility] Comment on above: Performed By: #### L 100.0100, L501.5200, L501.2450, L500.4050 ####[facility] [address] [place], [address] RDW SD 49.5 fl High 35.1-43.9 [facility] Comment on above: Performed By: #### L 100.0100, L501.5200, L501.2450, L500.4050 ####[facility] [address] [place], [address] WBC (Bld) [#/Vol] 5.2 10*3/uL Normal 4.4-11.0 [facility] Comment on above: Performed By: #### L 100.0100, L501.5200, L501.2450, L500.4050 ####[facility] [address] [place], [address] Carbon dioxide, total [Moles /volume] in Central venous bloodOrdered By: Anjelica Mendoza on 10-29-2024 CO2 [Moles/Vol] 22.6 mmol/L 21.0-32.0 [facility] Chloride assayOrdered By: Margarita Mendoza on 10-29-2024 Chloride [Moles/Vol] 108 mmol/L 98-108 [facility] Comprehensive Metabolic Prof ilon 10-29-2024 Albumin [Mass/Vol] 2.9 g/dL Low 3.4-4.8 [facility] Comment on above: Performed By: #### L 100.0100, L501.5200, L501.2450, L500.4050 ####[facility] [address] [place], [address] Albumin/Globulin [Mass ratio] 0.9 {ratio} Normal 0.9-2.4 [facility] Comment on above: Performed By: #### L 100.0100, L501.5200, L501.2450, L500.4050 ####[facility] [address] [place], [address] ALK PHOS 98 U/L Normal 40-129 [facility] Comment on above: Performed By: #### L 100.0100, L501.5200, L501.2450, L500.4050 ####[facility] [address] [place], [address] ALT [Catalytic activity/Vol] 29 U/L Normal <=46 [facility] Comment on above: Performed By: #### L 100.0100, L501.5200, L501.2450, L500.4050 ####[facility] [address] [place], [address] AST [Catalytic activity/Vol] 28 U/L Normal <=37 [facility] Comment on above: Performed By: #### L 100.0100, L501.5200, L501.2450, L500.4050 ####[facility] [address] [place], [address] Bilirubin [Mass/Vol] 0.26 mg/dL Normal 0.00-1.30 [facility] Comment on above: Performed By: #### L 100.0100, L501.5200, L501.2450, L500.4050 ####[facility] [address] [place], [address] BUN/CRE 11.7 RATIO Normal 10-20 [facility] Comment on above: Performed By: #### L 100.0100, L501.5200, L501.2450, L500.4050 ####[facility] [address] [place], [address] Calcium [Mass/Vol] 8.3 mg/dL Normal 7.6-11.0 [facility] Comment on above: Performed By: #### L 100.0100, L501.5200, L501.2450, L500.4050 ####[facility] [address] [place], [address] Chloride [Moles/Vol] 108 mmol/L Normal 98-108 [facility] Comment on above: Performed By: #### L 100.0100, L501.5200, L501.2450, L500.4050 ####[facility] [address] [place], [address] CO2 [Moles/Vol] 22.6 mmol/L Normal 21.0-32.0 [facility] Comment on above: Performed By: #### L 100.0100, L501.5200, L501.2450, L500.4050 ####[facility] [address] [place], [address] Creatinine [Mass/Vol] 0.99 mg/dL Normal 0.70-1.20 [facility] Comment on above: Performed By: #### L 100.0100, L501.5200, L501.2450, L500.4050 ####[facility] [address] [place], [address] GAP 8 Normal 5-15 [facility] Comment on above: Performed By: #### L 100.0100, L501.5200, L501.2450, L500.4050 ####[facility] [address] [place], [address] GFR/1.73 sq M.predicted among non-blacks MDRD (S/P/Bld) [Vol rate/Area] 81 mL/min/{1.73_m2} Normal >60 [facility] Comment on above: Result Comment: mL/m in/1.73m2 CKD-EPI Creatinine Equation (2020) Performed By: #### L 100.0100, L501.5200, L501.2450, L500.4050 ####[facility] [address] [place], [address] Globulin (S) [Mass/Vol] 3.1 g/dL Normal 2.2-4.2 [facility] Comment on above: Performed By: #### L 100.0100, L501.5200, L501.2450, L500.4050 ####[facility] [address] [place], [address] Glucose [Mass/Vol] 122 mg/dL High 70-99 [facility] Comment on above: Performed By: #### L 100.0100, L501.5200, L501.2450, L500.4050 ####[facility] [address] [place], [address] Potassium [Moles/Vol] 4.4 mmol/L Normal 3.3-5.1 [facility] Comment on above: Performed By: #### L 100.0100, L501.5200, L501.2450, L500.4050 ####[facility] [address] [place], [address] Sodium [Moles/Vol] 138 mmol/L Normal 133-145 [facility] Comment on above: Performed By: #### L 100.0100, L501.5200, L501.2450, L500.4050 ####[facility] [address] [place], [address] T PROT 6.0 g/dL Normal 5.9-8.4 [facility] Comment on above: Performed By: #### L 100.0100, L501.5200, L501.2450, L500.4050 ####[facility] [address] [place], [address] Urea nitrogen [Mass/Vol] 12 mg/dL Normal 4-19 [facility] Comment on above: Performed By: #### L 100.0100, L501.5200, L501.2450, L500.4050 ####[facility] [address] [place], [address] Eosinophil percentageOrdered By: Anjelica Mendoza on 10-29-2024 Eosinophils/100 WBC (Bld) 5.4 % High 0-5 [facility] Erythrocyte distribution wid th ratioOrdered By: Anjelica Mendoza on 10-29-2024 Erythrocyte distribution width (RBC) [Ratio] 13.5 % 11.6-14.6 [facility] Erythrocyte distribution wid th standard deviationOrdered By: Anjelica Mendoza on 10-29-2024 Erythrocyte distribution width (RBC) [Ratio] 49.5 fl High 35.1-43.9 [facility] Glomerular filtration rate ( GFR) estimation/1.73 sq m using serum, plasma, or whole bOrdered By: Anjelica Mendoza on 10-29-2024 GFR/1.73 sq M.predicted among non-blacks MDRD (S/P/Bld) [Vol rate/Area] 81 mL/min/{1.73_m2} >60 [facility] Comment on above: mL/min/1.73m2 CKD-EP I Creatinine Equation (2020) Hematocrit Auto (Bld) [Volum e fraction]Ordered By: Anjelica Mendoza on 10-29-2024 Hematocrit (Bld) [Volume fraction] 33.2 % Low 40-54 [facility] Hemoglobin measurementOrdere d By: Anjelica Mendoza on 10-29-2024 Hemoglobin (Bld) [Mass/Vol] 10.9 g/dL Low 13.0-16.5 [facility] Immature granulocytes/100 WB C Auto (Bld)Ordered By: Anjelica Mendoza on 10-29-2024 Immature granulocytes/100 WBC (Bld) 0.200 % 0.0-0.9 [facility] Comment on above: IG% - Immature Granu locytes (promyelocytes, myelocytes and metamyelocytes) > 1% indicates that a LEFT SHIFT is Present. Laboratory - Chemistry and C hemistry - challengeOrdered By: Anjelica Mendoza on 10-29-2024 AST [Catalytic activity/Vol] 28 U/L <38 [facility] Lipaseon 10-29-2024 Lipase [Catalytic activity/Vol] 6 U/L Low 13-75 [facility] Comment on above: Result Comment: Plea note: LIPASE revised reference range effective 22. New Lipase methodology. Expected to produce lower values than the previous assay method. NEW Reference Range: 13 - 75 U/L Performed By: #### L 100.0100, L501.5200, L501.2450, L500.4050 ####[facility] [address] [place], [address] Lipase measurementOrdered By : Anjelica Mendoza on 10-29-2024 Lipase [Catalytic activity/Vol] 6 U/L Low 13-75 [facility] Comment on above: Please note:LIPASE r evised reference range effective 22. New Lipase methodology. Expected to produce lower values than the previous assay method. NEW Reference Range: 13 - 75 U/L MCV (mean corpuscular volume ) determinationOrdered By: Anjelica Mendoza on 10-29-2024 MCV (RBC) [Entitic vol] 99.1 fL High 80-94 [facility] MR/BMS.IMBon 10-29-2024 MR/BMS.IMB [facility] [address] [place] [address] OFFICE VISIT Date of Service: 10/29/24 MR#: [id number] Acct: [id number] Name: MOUSTAPHA VASQUEZ Rep #: [id number] : 1950 Provider: Dr. Anjelica crawford MD Age/Sex: 74/M Location: [facility] Status: Signed Intake Vital Signs 07/21/24 10:06 [...] PAIN, FATIGUE Chief Complaint: Back pain, fatigue Promotions Assistant Sales Marketing Required: No Accompanied by: Self Is patient [...] past year?: No PFSH Medical History (Updated 10/29/24 @ 13:[address] Anjelica Mendoza MD) [...] who underwent chemotherapy followed by resection, at [facility]. He has not had follow-up there really [...] He describes the consistency to be somewhat "thick cottage cheese." He has not had tenesmus, abdominal cramping, [...] with applesauc (more content not included)... Normal [facility] Magnesiumon 10-29-2024 Magnesium [Mass/Vol] 1.9 mg/dL Normal 1.5-2.2 [facility] Comment on above: Performed By: #### L 100.0100, L501.5200, L501.2450, L500.4050 ####[facility] [address] [place], [address] Magnesium measurement (mass/ volume)Ordered By: Anjelica Mendoza on 10-29-2024 Magnesium (Unsp spec) [Mass/Vol] 1.9 mg/dL 1.5-2.2 [facility] Mean corpuscular hemoglobin (MCH) determinationOrdered By: Anjelica Mendoza on 10-29-2024 MCH (RBC) [Entitic mass] 32.5 pg High 27.0-32.0 [facility] Mean corpuscular hemoglobin concentration (MCHC) determinationOrdered By: Anjelica Mendoza on 10-29-2024 MCHC (RBC) [Mass/Vol] 32.8 g/dL 32-36 [facility] Mean platelet volume determi nationOrdered By: Anjelica Mendoza on 10-29-2024 Platelet mean volume (Bld) [Entitic vol] 8.7 fL 6.2-12.0 [facility] Monocyte percentageOrdered B y: Anjelica Mendoza on 07-09-2025 Monocytes/100 WBC (Bld) 7.7 % 0-10 [facility] Neutrophil percentageOrdered By: Anjelica Mendoza on 10-29-2024 Neutrophils/100 WBC (Bld) 73.8 % High 47-70 [facility] Nucleated red blood cell per centageOrdered By: Anjelica Mendoza on 10-29-2024 Nucleated RBC/100 WBC (Bld) [Ratio] 0 % 0-5 [facility] Platelet countOrdered By: Margarita Mendoza on 10-29-2024 Platelets (Bld) [#/Vol] 424 10*3/uL 150-450 [facility] Potassium measurement (mass/ volume)Ordered By: Anjelica Mendoza on 10-29-2024 Potassium (Unsp spec) [Mass/Vol] 4.4 mmol/L 3.3-5.1 [facility] RBC Auto (Bld) [#/Vol]Ordere d By: Anjelica Mendoza on 10-29-2024 RBC (Bld) [#/Vol] 3.35 10*6/uL Low 4.6-6.2 [facility] Serum creatinine measurement (mass/volume)Ordered By: Anjelica Mendoza on 10-29-2024 Creatinine [Mass/Vol] 0.99 mg/dL 0.70-1.20 [facility] Serum globulin measurementOr dered By: Anjelica Mendoza on 10-29-2024 Globulin (S) [Mass/Vol] 3.1 g/dL 2.2-4.2 [facility] Serum glucose measurement (m ass/volume)Ordered By: Anjelica Mendoza on 10-29-2024 Glucose [Mass/Vol] 122 mg/dL High 70-99 [facility] Serum or plasma alanine webster otransferase (ALT) measurementOrdered By: Anjelica Mendoza on 10-29-2024 ALT [Catalytic activity/Vol] 29 U/L <47 [facility] Serum or plasma albumin pretty urement (mass/volume)Ordered By: Anjelica Mendoza on 10-29-2024 Albumin [Mass/Vol] 2.9 g/dL Low 3.4-4.8 [facility] Serum or plasma albumin/glob ulin mass ratioOrdered By: Anjelica Mendoza on 10-29-2024 Albumin/Globulin [Mass ratio] 0.9 {ratio} 0.9-2.4 [facility] Serum or plasma alkaline rosenda sphatase measurementOrdered By: Anjelica Mendoza on 10-29-2024 ALP [Catalytic activity/Vol] 98 U/L 40-129 [facility] Serum or plasma calcium pretty urement (mass/volume)Ordered By: Anjelica Mendoza on 10-29-2024 Calcium [Mass/Vol] 8.3 mg/dL 7.6-11.0 [facility] Serum or plasma urea nitroge n measurement (mass/volume)Ordered By: Anjelica Mendoza on 10-29-2024 Urea nitrogen [Mass/Vol] 12 mg/dL 4-19 [facility] Sodium levelOrdered By: Martha Mendoza on 10-29-2024 Sodium [Moles/Vol] 138 mmol/L 133-145 [facility] Thoracic Spine 3 Viewson Thoracic Spine 3 Views [facility] Imaging Services [address] [place], [place] [address] Thoracic Spine 3 Views MR#: [id number] Acct: [id number] Name: MOUSTAPHA VASQUEZ Rep #: [id number] : 1950 M 74 From: Kisha graham MD PCP: Dr. Anjelica Mendoza MD Status: REG CLI Study: Thoracic Spine 3 Views Date of Exam: 10/29/24 Exam# [id number] Ordering Dr: Anjelica Mendoza MD PROCEDURE: THORACIC [...] Thoracic spondylosis. No acute fracture. Reading Location: [place] [address] CC: Dr. Anjelica Mendoza MD Street Supervisor: Signed Normal [facility] Total proteinOrdered By: Jessica Mendoza on 10-29-2024 Protein [Mass/Vol] 6.0 g/dL 5.9-8.4 [facility] Vitamin B12 ser/plasOrdered By: Anjelica Mendoza on 10-29-2024 Cobalamin (Vitamin B12) [Mass/Vol] 301 pg/mL 180-914 [facility] White blood cell (WBC) count Ordered By: Anjelica Mendoza on 10-29-2024 WBC (Bld) [#/Vol] 5.2 10*3/uL 4.4-11.0 [facility] MR/BMS.IMBon 07-21-2024 MR/BMS.[facility] [address] [place] [address] OFFICE VISIT Date of Service: 07/21/24 MR#: [id number] Acct: [id number] Name: MOUSTAPHA VASQUEZ Rep #: [id number] : 1950 Provider: Dr. 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 Also history of TIA. He takes aspirin although he has not been taking that recently states. Otherwise he does take potassium supplement 20 mill equivalents p.o. 3 times daily. He has had hypokalemia, since he had been treated with chemotherapy, gemcitabine and paclitaxel. That was noted while at [facility]. In any event, he presents today with [...] is ident (more content not included)... Normal [facility] Chest PA and Lateralon 07-10 Chest PA and Lateral [facility] Imaging Services [address] [place], [place] [address] Chest PA and Lateral MR#: [id number] Acct: [id number] Name: MOUSTAPHA VASQUEZ Rep #: [id number] : 1950 M 74 From: Suresh Rasmussen MD PCP: Dr. Anjelica Mendoza MD Status: REG CLI Study: Chest PA and Lateral Date of Exam: 07/10/24 Exam# [id number] Ordering Dr: Arsen Delcid PA PROCEDURE: CHEST [...] 2. Additional description as above. Reading Location: [id number] CC: LUCRECIA Prieto; Dr. Anjelica Mendoza MD Street Supervisor: Signed Normal [facility] No Panel InformationOrdered By: Arsen Delcid on 07-10-2024 Influenza Types A,B Rapid (Clinic) Pos FLU A &Neg FLU B [facility] Urgent Care Visit Reporton 0 07-10-2024 Urgent Care Visit Report [facility] [address], [address] [place] [address] OFFICE VISIT Date of Service: 07/10/24 MR#: [id number] Acct: [id number] Name: MOUSTAPHA VASQUEZ Rep #: [id number] : 1950 Provider: LUCRECIA Prieto Age/Sex: 74/M Location: [facility] Status: Signed Intake Vital Signs [...] also states that his ear are clogged. [facility] Medical History (Updated 07/10/24 @ 13:14 by Arsen SINGER, PA) Nausea Hypokalemia Port Plalcement PIN IN LEFT [...] Exam Const General: cooperative and well developed HENNC Head: normal to inspection and atraumatic Ears: [...] past year?: No 07/10/24 1320 Date Arsen SINGER Cosignty Signature: Date (if applicable) CC: Normal [facility] Aldosterone, Serumon 04-11-2 024 ALDOSTERONE,S 1.3 ng/dL Normal 0.0-30.0 [facility] Comment on above: Order Comment: Test( s) 578912-[id number] Activity, Plasmawas developed and its performance characteristicsdetermined by [facility]. It has not been cleared or approvedby the Food and Drug Administration. Performed By: #### L 509.6000, L3400.4000, L3300.1100 ####[facility] [address] [place], [address] Renin, Plasmaon 04-11-2024 RENIN, PLASMA 0.560 ng/mL/hr Normal 0.167-5.380 [facility] Comment on above: Order Comment: Test( s) [id number]-[id number] Activity, Plasmawas developed and its performance characteristicsdetermined by [facility]. It has not been cleared or approvedby the Food and Drug Administration. Performed By: #### L 509.6000, L3400.4000, L3300.1100 ####[facility] [address] [place], [address] Aldosterone, serumOrdered By : Anjelica Mendoza on 04-01-2024 Aldosterone 1.3 ng/dL 0.0-30.0 [facility] CORTISOL SERUMon 04-01-2024 CORTISOL 13.80 ug/dL Normal 3.44-22.45 [facility] Comment on above: Result Comment: Adul t (AM) 5.27 - 22.45 ug/dL Adult (PM) 3.44 - 16.76 ug/dL Performed By: #### L 509.6000, L3400.4000, L3300.1100 ####[facility] [address] [place], [place], [address] Cortisol [Mass/Vol]Ordered B y: Anjelica Mendoza on 04-01-2024 Cortisol 13.80 ug/dL 3.44-22.45 [facility] Comment on above: Adult (AM) 5.27 - 22 .45 ug/dL Adult (PM) 3.44 - 16.76 ug/dL Renin (P) [Catalytic activit y/Vol]Ordered By: Anjelica Mendoza on 04-01-2024 Renin 0.560 ng/mL/hr 0.167-5.380 [facility] Absolute neutrophil countOrd ered By: Anjelica Mendoza on 03-27-2024 Neutrophils (Bld) [#/Vol] 2.4 10*3/uL 2.0-7.7 [facility] Albumin to globulin ratioOrd ered By: Anjelica Mendoza on 03-27-2024 Albumin/Globulin [Mass ratio] 1.1 {ratio} 0.9-2.4 [facility] Basophil percentageOrdered B y: Anjelica Mendoza on 03-27-2024 Basophils/100 WBC (Bld) 1.3 % High 0-1 [facility] Bilirubin, totalOrdered By: Anjelica Mendoza on 03-27-2024 Bilirubin [Mass/Vol] 0.50 mg/dL 0.20-1.00 [facility] Comment on above: For patients on eltr ombopag therapy, use of Dimension [place] TBIL is not recommended. Blood urea nitrogen (BUN)/cr eatinine ratioOrdered By: Anjelica Mendoza on 03-27-2024 Urea nitrogen/Creatinine [Mass ratio] 14.0 mg/mg 10-20 [facility] CBC W/Diff, Automatedon Absolute Lymph 0.73 X10 3/uL Low 0.83-4.51 [facility] Comment on above: Performed By: #### L 100.0100, L500.4050, L501.5200, L501.9520 #### [facility] [address] [place], [address] Absolute Neut 2.4 X10 3/uL Normal 2.0-7.7 [facility] Comment on above: Performed By: #### L 100.0100, L500.4050, L501.5200, L501.9520 #### [facility] [address] [place], [address] Basophils/100 WBC (Bld) 1.3 % High 0-1 [facility] Comment on above: Performed By: #### L 100.0100, L500.4050, L501.5200, L501.9520 #### [facility] [address] [place], [address] Eosinophils/100 WBC (Bld) 10.5 % High 0-5 [facility] Comment on above: Performed By: #### L 100.0100, L500.4050, L501.5200, L501.9520 #### [facility] [address] [place], [address] Erythrocyte distribution width (RBC) [Ratio] 15.1 % High 11.6-14.6 [facility] Comment on above: Performed By: #### L 100.0100, L500.4050, L501.5200, L501.9520 #### [facility] [address] [place], [address] Hematocrit (Bld) [Volume fraction] 37.3 % Low 40-54 [facility] Comment on above: Performed By: #### L 100.0100, L500.4050, L501.5200, L501.9520 #### [facility] [address] [place], [address] Hemoglobin (Bld) [Mass/Vol] 12.4 g/dL Low 13.0-16.5 [facility] Comment on above: Performed By: #### L 100.0100, L500.4050, L501.5200, L501.9520 #### [facility] [address] [place], [address] IG% 0.300 Normal 0.0-0.9 [facility] Comment on above: Result Comment: IG% - Immature Granulocytes (promyelocytes, myelocytes and metamyelocytes) > 1% indicates that a LEFT SHIFT is Present. Performed By: #### L 100.0100, L500.4050, L501.5200, L501.9520 #### [facility] [address] [place], [address] Lymphocytes/100 WBC (Bld) 18.6 % Low 19-41 [facility] Comment on above: Performed By: #### L 100.0100, L500.4050, L501.5200, L501.9520 #### [facility] [address] [place], [address] MCH (RBC) [Entitic mass] 32.6 pg High 27.0-32.0 [facility] Comment on above: Performed By: #### L 100.0100, L500.4050, L501.5200, L501.9520 #### [facility] [address] [place], [address] MCHC (RBC) [Mass/Vol] 33.2 g/dL Normal 32-36 [facility] Comment on above: Performed By: #### L 100.0100, L500.4050, L501.5200, L501.9520 #### [facility] [address] [place], [address] MCV (RBC) [Entitic vol] 98.2 fL High 80-94 [facility] Comment on above: Performed By: #### L 100.0100, L500.4050, L501.5200, L501.9520 #### [facility] [address] [place], [address] Monocytes/100 WBC (Bld) 9.2 % Normal 0-10 [facility] [facility] Comment on above: Performed By: #### L 100.0100, L500.4050, L501.5200, L501.9520 #### [facility] [address] [place], [address] Neutrophils/100 WBC (Bld) 60.1 % Normal 47-70 [facility] Comment on above: Performed By: #### L 100.0100, L500.4050, L501.5200, [id number] #### [facility] [address] [place], [address] Nucleated RBC (Bld) [#/Vol] 0 10*3/uL Normal 0-5 [facility] Comment on above: Performed By: #### L 100.0100, L500.4050, L501.5200, [id number] #### [facility] [address] [place], [address] Platelet mean volume (Bld) [Entitic vol] 9.1 fL Normal 6.2-12.0 [facility] Comment on above: Performed By: #### L 100.0100, L500.4050, L501.5200, [id number] #### [facility] [address] [place], [address] Platelets (Bld) [#/Vol] 268 10*3/uL Normal 150-450 [facility] Comment on above: Performed By: #### L 100.0100, L500.4050, L501.5200, [id number] #### [facility] [address] [place], [address] RBC (Bld) [#/Vol] 3.80 10*6/uL Low 4.6-6.2 [facility] Comment on above: Performed By: #### L 100.0100, L500.4050, L501.5200, [id number] #### [facility] [address] [place], [address] RDW SD 54.4 fl High 35.1-43.9 [facility] Comment on above: Performed By: #### L 100.0100, L500.4050, L501.5200, [id number] #### [facility] [address] [place], [address] WBC (Bld) [#/Vol] 3.9 10*3/uL Low 4.4-11.0 [facility] Comment on above: Performed By: #### L 100.0100, L500.4050, L501.5200, [id number] #### [facility] [address] [place], [address] Carbon dioxide measurementOr dered By: Anjelica Mendoza on 03-27-2024 CO2 [Moles/Vol] 21.0 mmol/L 21.0-32.0 [facility] Chloride measurementOrdered By: Anjelica Mendoza on 03-27-2024 Chloride [Moles/Vol] 119 mmol/L High 98-107 [facility] Comprehensive Metabolic Prof ilon 03-27-2024 Albumin [Mass/Vol] 3.5 g/dL Normal 3.2-5.0 [facility] Comment on above: Performed By: #### L 100.0100, L500.4050, L501.5200, [id number] #### [facility] [address] [place], [address] Albumin/Globulin [Mass ratio] 1.1 {ratio} Normal 0.9-2.4 [facility] Comment on above: Performed By: #### L 100.0100, L500.4050, L501.5200, [id number] #### [facility] [address] [place], [address] ALK P 91 U/L Normal 45-117 [facility] Comment on above: Performed By: #### L 100.0100, L500.4050, L501.5200, [id number] #### [facility] [address] [place], [address] ALT [Catalytic activity/Vol] 37 U/L Normal 16-61 [facility] Comment on above: Performed By: #### L 100.0100, L500.4050, L501.5200, [id number] #### [facility] [address] [place], [address] AST [Catalytic activity/Vol] 23 U/L Normal 15-37 [facility] Comment on above: Performed By: #### L 100.0100, L500.4050, L501.5200, [id number] #### [facility] [address] [place], [address] Bilirubin [Mass/Vol] 0.50 mg/dL Normal 0.20-1.00 [facility] Comment on above: Result Comment: For patients on eltrombopag therapy, use of Dimension [place] TBIL is not recommended. Performed By: #### L 100.0100, L500.4050, L501.5200, [id number] #### [facility] [address] [place], [address] BUN/CRE 14.0 RATIO Normal 10-20 [facility] Comment on above: Performed By: #### L 100.0100, L500.4050, L501.5200, [id number] #### [facility] [address] [place], [address] CA,Total 8.4 mg/dL Low 8.5-10.1 [facility] Comment on above: Performed By: #### L 100.0100, L500.4050, L501.5200, [id number] #### [facility] [address] [place], [address] Chloride [Moles/Vol] 119 mmol/L High 98-107 [facility] Comment on above: Performed By: #### L 100.0100, L500.4050, L501.5200, [id number] #### [facility] [address] [place], [address] CO2 [Moles/Vol] 21.0 mmol/L Normal 21.0-32.0 [facility] Comment on above: Performed By: #### L 100.0100, L500.4050, L501.5200, L501.9520 #### [facility] [address] [place], [address] Creatinine [Mass/Vol] 1.07 mg/dL Normal 0.70-1.30 [facility] Comment on above: Result Comment: The validity of the calculated GFR GFRAA in patients over 70 years has not been determined. Clinical correlation is essential. Performed By: #### L 100.0100, L500.4050, L501.5200, L501.9520 #### [facility] [address] [place], [address] EST GFR - AA 87 mL/min Normal >60 [facility] Comment on above: Result Comment: Afri can Yemeni GFR Calc Performed By: #### L 100.0100, L500.4050, L501.5200, [id number] #### [facility] [address] [place], [address] GAP 4 Low 5-15 [facility] Comment on above: Performed By: #### L 100.0100, L500.4050, L501.5200, [id number] #### [facility] [address] [place], [address] GFR/1.73 sq M.predicted among non-blacks MDRD (S/P/Bld) [Vol rate/Area] 72 mL/min/{1.73_m2} Normal >60 [facility] Comment on above: Result Comment: Non- GFR Calc Performed By: #### L 100.0100, L500.4050, L501.5200, L501.9520 #### [facility] [address] [place], [address] Globulin (S) [Mass/Vol] 3.2 g/dL Normal 2.2-4.2 [facility] Comment on above: Performed By: #### L 100.0100, L500.4050, L501.5200, L501.9520 #### [facility] [address] [place], [address] Glucose [Mass/Vol] 140 mg/dL High 74-106 [facility] Comment on above: Result Comment: Fast ing Glucose result greater than or equal to 126 mg/dL suggests DIABETES MELLITUS per A.D.A. criteria. Performed By: #### L 100.0100, L500.4050, L501.5200, L501.9520 #### [facility] [address] [place], [address] Potassium [Moles/Vol] 2.9 mmol/L Low 3.5-5.1 [facility] Comment on above: Performed By: #### L 100.0100, L500.4050, L501.5200, L501.9520 #### [facility] [address] [place], [address] Sodium [Moles/Vol] 144 mmol/L Normal 136-145 [facility] Comment on above: Performed By: #### L 100.0100, L500.4050, L501.5200, L501.9520 #### [facility] [address] [place], [address] T PROT 6.7 g/dL Normal 6.4-8.2 [facility] Comment on above: Performed By: #### L 100.0100, L500.4050, L501.5200, L501.9520 #### [facility] [address] [place], [address] Urea nitrogen [Mass/Vol] 15 mg/dL Normal 7-18 [facility] Comment on above: Performed By: #### L 100.0100, L500.4050, L501.5200, L501.9520 #### [facility] [address] [place], [address] Eosinophil percentageOrdered By: Anjelica Mendoza on 03-27-2024 Eosinophils/100 WBC (Bld) 10.5 % High 0-5 [facility] Erythrocyte distribution wid th ratioOrdered By: Anjelica Mendoza on 03-27-2024 Erythrocyte distribution width (RBC) [Ratio] 15.1 % High 11.6-14.6 [facility] Erythrocyte distribution wid th standard deviationOrdered By: Anjelica Mendoza on 03-27-2024 Erythrocyte distribution width (RBC) [Entitic vol] 54.4 fL High 35.1-43.9 [facility] Estimated glomerular filtrat ion rate (GFR) AmericanOrdered By: Anjelica Mendoza on 03-27-2024 Estimated GFR (MDRD) Amer 87 mL/min >60 [facility] Comment on above: GFR Calc Glomerular filtration rate ( GFR) estimationOrdered By: Anjelica Mendoza on 03-27-2024 Estimated GFR (MDRD) Non-Af Amer 72 mL/min >60 [facility] Comment on above: Non- GFR Calc Glucose measurementOrdered B y: Anjelica Mendoza on 03-27-2024 Glucose [Mass/Vol] 140 mg/dL High 74-106 [facility] Comment on above: Fasting Glucose resu lt greater than or equal to 126 mg/dL suggests DIABETES MELLITUS per A.D.A. criteria. Hematocrit Auto (Bld) [Volum e fraction]Ordered By: Anjelica Mendoza on 03-27-2024 Hematocrit (Bld) [Volume fraction] 37.3 % Low 40-54 [facility] Hemoglobin measurementOrdere d By: Anjelica Mendoza on 03-27-2024 Hemoglobin (Bld) [Mass/Vol] 12.4 g/dL Low 13.0-16.5 [facility] Immature granulocytes/100 WB C Auto (Bld)Ordered By: Anjelica Mendoza on 03-27-2024 Immature granulocytes/100 WBC (Bld) 0.300 % 0.0-0.9 [facility] Comment on above: IG% - Immature Granu locytes (promyelocytes, myelocytes and metamyelocytes) > 1% indicates that a LEFT SHIFT is Present. Laboratory - Chemistry and C hemistry - challengeOrdered By: Anjelica Mendoza on 03-27-2024 AST [Catalytic activity/Vol] 23 U/L 15-37 [facility] Lymphocytes Auto (Unsp spec) [#/Vol]Ordered By: Anjelica Mendoza on 03-27-2024 Lymphocytes (Bld) [#/Vol] 0.73 10*3/uL Low 0.83-4.51 [facility] Lymphocytes/100 WBC Auto (Un sp spec)Ordered By: Anjelica Mendoza on 03-27-2024 Lymphocytes/100 WBC (Bld) 18.6 % Low 19-41 [facility] MCV (mean corpuscular volume ) determinationOrdered By: Anjelica Mendoza on 03-27-2024 MCV (RBC) [Entitic vol] 98.2 fL High 80-94 [facility] MR/BMS.IMBon 03-27-2024 MR/BMS.IMB [facility] [address] [place] [address] OFFICE VISIT Date of Service: 03/27/24 MR#: [id number] Acct: [id number] Name: MOUSTAPHA VASQUEZ Rep #: [id number] : 1950 Provider: Dr. 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 He ultimately decided to go to [facility] where he underwent chemotherapy regimen, regimen that [...] neck pa (more content not included)... Normal [facility] Magnesiumon 03-27-2024 Magnesium [Mass/Vol] 2.4 mg/dL Normal 1.6-2.6 [facility] Comment on above: Performed By: #### L 100.0100, L500.4050, L501.5200, L501.9520 #### [facility] [address] [place], [address] Magnesium measurementOrdered By: Anjelica Mendoza on 03-27-2024 Magnesium [Mass/Vol] 2.4 mg/dL 1.6-2.6 [facility] Mean corpuscular hemoglobin (MCH) determinationOrdered By: Anjelica Mendoza on 03-27-2024 MCH (RBC) [Entitic mass] 32.6 pg High 27.0-32.0 [facility] Mean corpuscular hemoglobin concentration (MCHC) determinationOrdered By: Anjelica Mendoza on 03-27-2024 MCHC (RBC) [Mass/Vol] 33.2 g/dL 32-36 [facility] Mean platelet volume determi nationOrdered By: Anjelica Mendoza on 03-27-2024 Platelet mean volume (Bld) [Entitic vol] 9.1 fL 6.2-12.0 [facility] Monocyte percentageOrdered B y: Anjelica Mendoza on 03-27-2024 Monocytes/100 WBC (Bld) 9.2 % 0-10 [facility] Neutrophil percentageOrdered By: Anjelica Mendoza on 03-27-2024 Neutrophils/100 WBC (Bld) 60.1 % 47-70 [facility] Nucleated red blood cell per centageOrdered By: Anjelica Mendoza on 03-27-2024 Nucleated RBC/100 WBC (Bld) [Ratio] 0 % 0-5 [facility] Platelet countOrdered By: Margarita Mendoza on 03-27-2024 Platelets (Bld) [#/Vol] 268 10*3/uL 150-450 [facility] Potassium measurementOrdered By: Anjelica Mendoza on 03-27-2024 Potassium [Moles/Vol] 2.9 mmol/L Low 3.5-5.1 [facility] RBC Auto (Bld) [#/Vol]Ordere d By: Anjelica Mendoza on 03-27-2024 RBC (Bld) [#/Vol] 3.80 10*6/uL Low 4.6-6.2 [facility] Serum anion gap measurementO rdered By: Anjelica Mendoza on 03-27-2024 Anion gap [Moles/Vol] 4 mmol/L Low 5-15 [facility] Serum globulin measurementOr dered By: Anjelica Mendoza on 03-27-2024 Globulin (S) [Mass/Vol] 3.2 g/dL 2.2-4.2 [facility] Serum or plasma alanine webster otransferase (ALT) measurementOrdered By: Anjelica Mendoza on 03-27-2024 ALT [Catalytic activity/Vol] 37 U/L 16-61 [facility] Serum or plasma albumin pretty urement (mass/volume)Ordered By: Anjelica Mendoza on 03-27-2024 Albumin [Mass/Vol] 3.5 g/dL 3.2-5.0 [facility] Serum or plasma alkaline rosenda sphatase measurementOrdered By: Anjelica Mendoza on 03-27-2024 ALP [Catalytic activity/Vol] 91 U/L 45-117 [facility] Serum or plasma calcium pretty urement (mass/volume)Ordered By: Anjelica Mendoza on 03-27-2024 Calcium [Mass/Vol] 8.4 mg/dL Low 8.5-10.1 [facility] Serum or plasma creatinine m easurement (mass/volume)Ordered By: Anjelica Mendoza on 03-27-2024 Creatinine [Mass/Vol] 1.07 mg/dL 0.70-1.30 [facility] Comment on above: The validity of the calculated GFR & GFRAA in patients over 70 years has not been determined. Clinical correlation is essential. Serum or plasma urea nitroge n measurement (mass/volume)Ordered By: Anjelica Mendoza on 03-27-2024 Urea nitrogen [Mass/Vol] 15 mg/dL 7-18 [facility] Sodium levelOrdered By: Martha Mendoza on 03-27-2024 Sodium [Moles/Vol] 144 mmol/L 136-145 [facility] TSH QnOrdered By: Anjelica Dickson hner on 03-27-2024 Thyroid Stimulating Hormone (TSH) 3.020 uIU/mL 0.358-3.740 [facility] Thyroid Stim Hormone (TSH)on 03-27-2024 TSH 3.020 uIU/mL Normal 0.358-3.740 [facility] Comment on above: Performed By: #### L 100.0100, L500.4050, L501.5200, L501.9520 #### [facility] [address] [place], [address] Total proteinOrdered By: Jessica Mendoza on 03-27-2024 Protein [Mass/Vol] 6.7 g/dL 6.4-8.2 [facility] White blood cell (WBC) count Ordered By: Anjelica Mendoza on 03-27-2024 WBC (Bld) [#/Vol] 3.9 10*3/uL Low 4.4-11.0 [facility] Basophil percentageOrdered B y: Anjelica Mendoza on 05-09-2023 Chloride [Moles/Vol] 115 mmol/L 98-107 [facility] Glucose [Mass/Vol] 94 mg/dL 74-106 [facility] Potassium [Moles/Vol] 3.1 mmol/L 3.5-5.1 [facility] Sodium [Moles/Vol] 145 mmol/L 136-145 [facility] Laboratory - Chemistry and C hemistry - challengeOrdered By: Anjelica Mendoza on 05-09-2023 CO2 [Moles/Vol] 26.0 mmol/L 21.0-32.0 [facility] Magnesium [Mass/Vol] 2.3 mg/dL 1.6-2.6 [facility] Sodium (U) [Moles/Vol] 92 mmol/L Not Establ. [facility] Urea nitrogen/Creatinine [Mass ratio] 18.7 mg/mg 10-20 [facility] No Panel InformationOrdered By: Anjelica Mendoza on 05-09-2023 Estimated GFR (MDRD) Amer 114 mL/min >60 [facility] Comment on above: GFR Calc Estimated GFR (MDRD) Non-Af Amer 94 mL/min >60 [facility] Comment on above: Non- GFR Calc Urine Potassium 7.0 mmol/L Not Establ. [facility] Serum or plasma calcium pretty urement (mass/volume)Ordered By: Anjelica Mendoza on 05-09-2023 Calcium [Mass/Vol] 8.6 mg/dL 8.5-10.1 [facility] Serum or plasma creatinine m easurement (mass/volume)Ordered By: Anjelica Mendoza on 05-09-2023 Creatinine [Mass/Vol] 0.86 mg/dL 0.70-1.30 [facility] Comment on above: The validity of the calculated GFR & GFRAA in patients over 70 years has not been determined. Clinical correlation is essential. Serum or plasma urea nitroge n measurement (mass/volume)Ordered By: Anjelica Mendoza on 05-09-2023 Urea nitrogen [Mass/Vol] 16 mg/dL 7-18 [facility] Thin prep Papanicolaou smear with manual screeningOrdered By: Anjelica Mendoza on 05-09-2023 Thin prep Papanicolaou smear with manual screening 4 5-15 [facility] Urine chloride measurement ( moles/volume)Ordered By: Anjelica Mendoza on 05-09-2023 Chloride (U) [Moles/Vol] 113 mmol/L Not Establ. [facility] Basophil percentageOrdered B y: Dr. Mendoza on 09-12-2022 Chloride [Moles/Vol] 115 mmol/L 98-107 [facility] Glucose [Mass/Vol] 79 mg/dL 74-106 [facility] Potassium [Moles/Vol] 2.9 mmol/L 3.5-5.1 [facility] Sodium [Moles/Vol] 144 mmol/L 136-145 [facility] Laboratory - Chemistry and C hemistry - challengeOrdered By: Dr. Mendoza on 09-12-2022 CO2 [Moles/Vol] 22.0 mmol/L 21.0-32.0 [facility] Urea nitrogen/Creatinine [Mass ratio] 20.2 mg/mg 10-20 [facility] No Panel InformationOrdered By: Dr. Mendoza on 09-12-2022 Estimated GFR (MDRD) Amer 116 mL/min >60 [facility] Comment on above: GFR Calc Estimated GFR (MDRD) Non-Af Amer 96 mL/min >60 [facility] Comment on above: Non- GFR Calc Serum or plasma calcium pretty urement (mass/volume)Ordered By: Dr. eMndoza on 09-12-2022 Calcium [Mass/Vol] 7.8 mg/dL 8.5-10.1 [facility] Serum or plasma creatinine m easurement (mass/volume)Ordered By: Dr. Mendoza on 09-12-2022 Creatinine [Mass/Vol] 0.84 mg/dL 0.70-1.30 [facility] Comment on above: The validity of the calculated GFR & GFRAA in patients over 70 years has not been determined. Clinical correlation is essential. Serum or plasma urea nitroge n measurement (mass/volume)Ordered By: Dr. Mendoza on 09-12-2022 Urea nitrogen [Mass/Vol] 17 mg/dL 7-18 [facility] Thin prep Papanicolaou smear with manual screeningOrdered By: Dr. Mendoza on 09-12-2022 Thin prep Papanicolaou smear with manual screening 7 5-15 [facility] Basophil percentageOrdered B y: Dr. Mendoza on 07-17-2022 Chloride [Moles/Vol] 117 mmol/L 98-107 [facility] Glucose [Mass/Vol] 116 mg/dL 74-106 [facility] Comment on above: Fasting Glucose resu lt from 100 to 125 mg/dL suggests IMPAIRED HOMEOSTASIS per A.D.A. criteria. Potassium [Moles/Vol] 3.2 mmol/L 3.5-5.1 [facility] Sodium [Moles/Vol] 144 mmol/L 136-145 [facility] Laboratory - Chemistry and C hemistry - challengeOrdered By: Dr. Mendoza on 07-17-2022 CO2 [Moles/Vol] 22.0 mmol/L 21.0-32.0 [facility] Urea nitrogen/Creatinine [Mass ratio] 20.3 mg/mg 10-20 [facility] No Panel InformationOrdered By: Dr. Mendoza on 07-17-2022 Estimated GFR (MDRD) Amer 117 mL/min >60 [facility] Comment on above: GFR Calc Estimated GFR (MDRD) Non-Af Amer 96 mL/min >60 [facility] Comment on above: Non- GFR Calc Serum or plasma calcium pretty urement (mass/volume)Ordered By: Dr. Mendoza on 07-17-2022 Calcium [Mass/Vol] 8.4 mg/dL 8.5-10.1 [facility] Serum or plasma creatinine m easurement (mass/volume)Ordered By: Dr. Mendoza on 07-17-2022 Creatinine [Mass/Vol] 0.84 mg/dL 0.70-1.30 [facility] Comment on above: The validity of the calculated GFR & GFRAA in patients over 70 years has not been determined. Clinical correlation is essential. Serum or plasma urea nitroge n measurement (mass/volume)Ordered By: Dr. Mendoza on 07-17-2022 Urea nitrogen [Mass/Vol] 17 mg/dL 7-18 [facility] Thin prep Papanicolaou smear with manual screeningOrdered By: Dr. Mendoza on 07-17-2022 Thin prep Papanicolaou smear with manual screening 5 5-15 [facility] Basophil percentageOrdered B y: Dr. Mendoza on 06-29-2022 Chloride [Moles/Vol] 113 mmol/L 98-107 [facility] Glucose [Mass/Vol] 106 mg/dL 74-106 [facility] Comment on above: Fasting Glucose resu lt from 100 to 125 mg/dL suggests IMPAIRED HOMEOSTASIS per A.D.A. criteria. Potassium [Moles/Vol] 2.8 mmol/L 3.5-5.1 [facility] Sodium [Moles/Vol] 146 mmol/L 136-145 [facility] Laboratory - Chemistry and C hemistry - challengeOrdered By: Dr. Mendoza on 06-29-2022 CO2 [Moles/Vol] 26.0 mmol/L 21.0-32.0 [facility] Urea nitrogen/Creatinine [Mass ratio] 18.7 mg/mg 10-20 [facility] No Panel InformationOrdered By: Dr. Mendoza on 06-29-2022 Estimated GFR (MDRD) Amer 122 mL/min >60 [facility] Comment on above: GFR Calc Estimated GFR (MDRD) Non-Af Amer 101 mL/min >60 [facility] Comment on above: Non- GFR Calc Serum or plasma calcium pretty urement (mass/volume)Ordered By: Dr. Mendoza on 06-29-2022 Calcium [Mass/Vol] 8.4 mg/dL 8.5-10.1 [facility] Serum or plasma creatinine m easurement (mass/volume)Ordered By: Dr. Mendoza on 06-29-2022 Creatinine [Mass/Vol] 0.80 mg/dL 0.70-1.30 [facility] Comment on above: The validity of the calculated GFR & GFRAA in patients over 70 years has not been determined. Clinical correlation is essential. Serum or plasma urea nitroge n measurement (mass/volume)Ordered By: Dr. Mendoza on 06-29-2022 Urea nitrogen [Mass/Vol] 15 mg/dL 7-18 [facility] Thin prep Papanicolaou smear with manual screeningOrdered By: Dr. Mendoza on 06-29-2022 Thin prep Papanicolaou smear with manual screening 7 5-15 [facility] Basophil percentageOrdered B y: Dr. Mendoza on 05-08-2022 Bilirubin [Mass/Vol] 0.40 mg/dL 0.20-1.00 [facility] Comment on above: For patients on eltr ombopag therapy, use of Dimension [place] TBIL is not recommended. Chloride [Moles/Vol] 111 mmol/L 98-107 [facility] Glucose [Mass/Vol] 98 mg/dL 74-106 [facility] Potassium [Moles/Vol] 3.0 mmol/L 3.5-5.1 [facility] Protein [Mass/Vol] 6.7 g/dL 6.4-8.2 [facility] Sodium [Moles/Vol] 144 mmol/L 136-145 [facility] Laboratory - Chemistry and C hemistry - challengeOrdered By: Dr. Mendoza on 05-08-2022 ALP [Catalytic activity/Vol] 79 U/L 45-117 [facility] ALT [Catalytic activity/Vol] 38 U/L 16-61 [facility] CO2 [Moles/Vol] 24.0 mmol/L 21.0-32.0 [facility] Globulin (S) [Mass/Vol] 3.1 g/dL 2.2-4.2 [facility] Magnesium [Mass/Vol] 2.1 mg/dL 1.6-2.6 [facility] Urea nitrogen/Creatinine [Mass ratio] 18.3 mg/mg 10-20 [facility] No Panel InformationOrdered By: Dr. Mendoza on 05-08-2022 Estimated GFR (MDRD) Amer 130 mL/min >60 [facility] Comment on above: GFR Calc Estimated GFR (MDRD) Non-Af Amer 107 mL/min >60 [facility] Comment on above: Non- GFR Calc Serum or plasma albumin pretty urement (mass/volume)Ordered By: Dr. Mendoza on 05-08-2022 Albumin [Mass/Vol] 3.6 g/dL 3.2-5.0 [facility] Serum or plasma albumin/glob ulin mass ratioOrdered By: Dr. Mendoza on 05-08-2022 Albumin/Globulin [Mass ratio] 1.2 {ratio} 0.9-2.4 [facility] Serum or plasma calcium pretty urement (mass/volume)Ordered By: Dr. Mendoza on 05-08-2022 Calcium [Mass/Vol] 8.2 mg/dL 8.5-10.1 [facility] Serum or plasma creatinine m easurement (mass/volume)Ordered By: Dr. Mendoza on 05-08-2022 Creatinine [Mass/Vol] 0.76 mg/dL 0.70-1.30 [facility] Comment on above: The validity of the calculated GFR & GFRAA in patients over 70 years has not been determined. Clinical correlation is essential. Serum or plasma urea nitroge n measurement (mass/volume)Ordered By: Dr. Menodza on 05-08-2022 Urea nitrogen [Mass/Vol] 14 mg/dL 7-18 [facility] Thin prep Papanicolaou smear with manual screeningOrdered By: Dr. Mendoza on 05-08-2022 Thin prep Papanicolaou smear with manual screening 28 U/L 15-37 [facility] Thin prep Papanicolaou smear with manual screening 9 5-15 [facility] Basophil percentageOrdered B y: Dr. Hernandez on 04-27-2022 Basophil percentage 3.1 mg/dL 2.5-4.9 [facility] Basophil percentageOrdered B y: Dr. Crum on 04-27-2022 Chloride [Moles/Vol] 118 mmol/L 98-107 [facility] Glucose [Mass/Vol] 107 mg/dL 74-106 [facility] Comment on above: Fasting Glucose resu lt from 100 to 125 mg/dL suggests IMPAIRED HOMEOSTASIS per A.D.A. criteria. Potassium [Moles/Vol] 2.6 mmol/L 3.5-5.1 [facility] Comment on above: Critical Result(s) C alled at: 08:15:44 04/27/2022 by: Fatou Mcgregor. Results read back by same. Sodium [Moles/Vol] 146 mmol/L 136-145 [facility] Laboratory - Chemistry and C hemistry - challengeOrdered By: Dr. Crum on 04-27-2022 CO2 [Moles/Vol] 21.0 mmol/L 21.0-32.0 [facility] Urea nitrogen/Creatinine [Mass ratio] 13.8 mg/mg 10-20 [facility] Laboratory - Chemistry and C hemistry - challengeOrdered By: Dr. Hernandez on 04-27-2022 Magnesium [Mass/Vol] 2.1 mg/dL 1.6-2.6 [facility] No Panel InformationOrdered By: Dr. Crum on 04-27-2022 Estimated Creatinine Clearance Calc 76.42 ml/min [facility] Estimated GFR (MDRD) Amer 123 mL/min >60 [facility] Comment on above: GFR Calc Estimated GFR (MDRD) Non-Af Amer 102 mL/min >60 [facility] Comment on above: Non- GFR Calc Serum or plasma calcium pretty urement (mass/volume)Ordered By: Dr. Crum on 04-27-2022 Calcium [Mass/Vol] 7.9 mg/dL 8.5-10.1 [facility] Serum or plasma creatinine m easurement (mass/volume)Ordered By: Dr. Crum on 04-27-2022 Creatinine [Mass/Vol] 0.80 mg/dL 0.70-1.30 [facility] Comment on above: The validity of the calculated GFR & GFRAA in patients over 70 years has not been determined. Clinical correlation is essential. Serum or plasma urea nitroge n measurement (mass/volume)Ordered By: Dr. Crum on 04-27-2022 Urea nitrogen [Mass/Vol] 11 mg/dL 7-18 [facility] Thin prep Papanicolaou smear with manual screeningOrdered By: Dr. Crum on 04-27-2022 Thin prep Papanicolaou smear with manual screening 7 5-15 [facility] Absolute lymphocyte countOrd ered By: Dr. Chan on 04-26-2022 Lymphocytes Auto (Unsp spec) [#/Vol] 0.73 10*3/uL 0.83-4.51 [facility] Basophil percentageOrdered B y: Dr. Chan on 04-26-2022 Basophils/100 WBC (Bld) 1.0 % 0-1 [facility] Eosinophils/100 WBC (Bld) 10.1 % 0-5 [facility] Neutrophils (Bld) [#/Vol] 1.7 10*3/uL 2.0-7.7 [facility] Neutrophils/100 WBC (Bld) 56.2 % 47-70 [facility] WBC (Bld) [#/Vol] 3.1 10*3/uL 4.4-11.0 [facility] Basophil percentageon 2022 Chloride [Moles/Vol] 114 mmol/L 98-107 [facility] Work Phone: Glucose [Mass/Vol] 167 mg/dL 74-106 [facility] Work Phone: Comment on above: Fasting Glucose resu lt greater than or equal to 126 mg/dL suggests DIABETES MELLITUS per A.D.A. criteria. Potassium [Moles/Vol] 2.4 mmol/L 3.5-5.1 [facility] Work Phone: Comment on above: Critical Result(s) C alled at: 11:41:36 04/26/2022 by: Fatou Hermosillo. Results read back by same. Sodium [Moles/Vol] 143 mmol/L 136-145 [facility] Work Phone: Basophil percentageOrdered B y: Dr. Crum on 04-26-2022 Cholesterol [Mass/Vol] 119 mg/dL <200 [facility] Comment on above: <200 mg/dL Desirable 200-240 mg/dL Borderline >240 mg/dL High Risk Triglyceride [Mass/Vol] 92 mg/dL <199 [facility] Comment on above: The drugs N-Acetylcy steine and Metamizole may falsely depress this assay.Serum Triglycerides Reference Interval Normal <150 mg/dL Borderline high 150 - 199 mg/dL High 200 - 499 mg/dL Very High > or = 500 mg/dL Blood erythrocytes count (nu mber/volume)Ordered By: Dr. Chan on 04-26-2022 RBC (Bld) [#/Vol] 3.72 10*6/uL 4.6-6.2 [facility] Blood hemoglobin measurement (mass/volume)Ordered By: Dr. Chan on 04-26-2022 Hemoglobin (Bld) [Mass/Vol] 12.6 g/dL 13.0-16.5 [facility] Blood lymphocytes/100 leukoc ytesOrdered By: Dr. Chan on 04-26-2022 Lymphocytes/100 WBC (Bld) 23.9 % 19-41 [facility] Blood monocytes/100 leukocyt esOrdered By: Dr. Chan on 04-26-2022 Monocytes/100 WBC (Bld) 8.8 % 0-10 [facility] Blood platelet mean volumeOr dered By: Dr. Chan on 04-26-2022 Platelet mean volume (Bld) [Entitic vol] 8.6 fL 6.2-12.0 [facility] Determination of erythrocyte mean corpuscular volume (MCV)Ordered By: Dr. Chan on 04-26-2022 MCV (RBC) [Entitic vol] 97.0 fL 80-94 [facility] Hematocrit Auto (Bld) [Volum e fraction]Ordered By: Dr. Chan on 04-26-2022 Hematocrit (Bld) [Volume fraction] 36.1 % 40-54 [facility] INR in Blood by Coagulation assayOrdered By: Dr. Chan on 04-26-2022 INR Coag (Bld) [Relative time] 1.1 {INR} [facility] Laboratory - Chemistry and C hemistry - challengeon 04-26-2022 CO2 [Moles/Vol] 25.0 mmol/L 21.0-32.0 [facility] Work Phone: Urea nitrogen/Creatinine [Mass ratio] 17.2 mg/mg 10-20 [facility] Work Phone: Laboratory - CoagulationOrde red By: Dr. Chan on 04-26-2022 aPTT Coag (Bld) [Time] 24.6 s 24.1-36.2 [facility] PT Coag (PPP) [Time] 13.9 s 11.7-14.9 [facility] Laboratory - Hematology and Cell countsOrdered By: Dr. Chan on 04-26-2022 Erythrocyte distribution width (RBC) [Entitic vol] 49.6 fL 35.1-43.9 [facility] Erythrocyte distribution width (RBC) [Ratio] 13.9 % 11.6-14.6 [facility] Immature granulocytes/100 WBC (Bld) 0.000 % 0.0-0.9 [facility] Comment on above: IG% - Immature Granu locytes (promyelocytes, myelocytes and metamyelocytes) > 1% indicates that a LEFT SHIFT is Present. MCH (RBC) [Entitic mass] 33.9 pg 27.0-32.0 [facility] Nucleated RBC/100 WBC (Bld) [Ratio] 0 % 0-5 [facility] MCHC Auto (RBC) [Mass/Vol]Or dered By: Dr. Chan on 04-26-2022 MCHC (RBC) [Mass/Vol] 34.9 g/dL 32-36 [facility] No Panel Informationon 04-26 Estimated Creatinine Clearance Calc 76.40 ml/min [facility] Work Phone: Estimated GFR (MDRD) Amer 112 mL/min >60 [facility] Work Phone: Comment on above: GFR Calc Estimated GFR (MDRD) Non-Af Amer 92 mL/min >60 [facility] Work Phone: Comment on above: Non- GFR Calc No Panel InformationOrdered By: Dr. Chan on 04-26-2022 Troponin I High Sensitivity 11 pg/mL 3.0-78.0 [facility] Comment on above: Please Note: New Isablea t Units and Gender Specific Reference Ranges. For more information see Policy Stat Procedure [place] High Sensitivity Troponin (TNIH) and attachments. Platelets bldOrdered By: Dr. Chan on 04-26-2022 Platelets (Bld) [#/Vol] 212 10*3/uL 150-450 [facility] Serum or plasma calcium pretty urement (mass/volume)on 04-26-2022 Calcium [Mass/Vol] 8.1 mg/dL 8.5-10.1 [facility] Work Phone: Serum or plasma cholesterol in HDL measurement (mass/volume)Ordered By: Dr. Crum on 04-26-2022 Cholesterol in HDL [Mass/Vol] 53 mg/dL >40 [facility] Comment on above: The drugs N-Acetylcy steine and Metamizole may falsely depress this assay. Reference Range HDL <40 mg/dL Low HDL Cholesterol HDL >or= 60 mg/dL High HDL Cholesterol Serum or plasma cholesterol in VLDL measurement (mass/volume)Ordered By: Dr. Crum on 04-26-2022 Cholesterol in VLDL [Mass/Vol] 18 mg/dL 5-40 [facility] Serum or plasma creatinine m easurement (mass/volume)on 04-26-2022 Creatinine [Mass/Vol] 0.87 mg/dL 0.70-1.30 [facility] Work Phone: Comment on above: The validity of the calculated GFR & GFRAA in patients over 70 years has not been determined. Clinical correlation is essential. Serum or plasma low density lipoprotein (LDL) cholesterol measurement (mass/volume)Ordered By: Dr. Crum on 04-26-2022 Cholesterol in LDL [Mass/Vol] 48 mg/dL 0-130 [facility] Serum or plasma urea nitroge n measurement (mass/volume)on 04-26-2022 Urea nitrogen [Mass/Vol] 15 mg/dL 7-18 [facility] Work Phone: Thin prep Papanicolaou smear with manual screeningon 04-26-2022 Thin prep Papanicolaou smear with manual screening 4 5-15 [facility] Work Phone: Basophil percentageon 2021 Chloride [Moles/Vol] 112 mmol/L 98-107 [facility] Work Phone: Glucose [Mass/Vol] 202 mg/dL 74-106 [facility] Work Phone: Comment on above: Glucose result great er than or equal to 200 mg/dLsuggests DIABETES MELLITUS per A.D.A. criteria. Potassium [Moles/Vol] 3.4 mmol/L 3.5-5.1 [facility] Work Phone: Sodium [Moles/Vol] 143 mmol/L 136-145 [facility] Work Phone: Laboratory - Chemistry and C hemistry - challengeon 10-05-2021 CO2 [Moles/Vol] 23.0 mmol/L 21.0-32.0 [facility] Work Phone: Urea nitrogen/Creatinine [Mass ratio] 15.6 mg/mg 10-20 [facility] Work Phone: No Panel Informationon 10-05 Estimated GFR (MDRD) Amer 117 mL/min >60 [facility] Work Phone: Comment on above: GFR Calc Estimated GFR (MDRD) Non-Af Amer 97 mL/min >60 [facility] Work Phone: Comment on above: Non- GFR Calc Serum or plasma calcium pretty urement (mass/volume)on 10-05-2021 Calcium [Mass/Vol] 8.2 mg/dL 8.5-10.1 [facility] Work Phone: Serum or plasma creatinine m easurement (mass/volume)on 10-05-2021 Creatinine [Mass/Vol] 0.84 mg/dL 0.70-1.30 [facility] Work Phone: Comment on above: The validity of the calculated GFR & GFRAA in patients over 70 years has not been determined. Clinical correlation is essential. Serum or plasma urea nitroge n measurement (mass/volume)on 10-05-2021 Urea nitrogen [Mass/Vol] 13 mg/dL 7-18 [facility] Work Phone: Thin prep Papanicolaou smear with manual screeningon 10-05-2021 Thin prep Papanicolaou smear with manual screening 8 5-15 [facility] Work Phone: Absolute lymphocyte counton 09-26-2021 Lymphocytes Auto (Unsp spec) [#/Vol] 0.76 10*3/uL 0.83-4.51 [facility] Work Phone: Basophil percentageon 2021 Basophils/100 WBC (Bld) 1.2 % 0-1 [facility] Work Phone: Bilirubin [Mass/Vol] 0.30 mg/dL 0.20-1.00 [facility] Work Phone: Comment on above: For patients on eltr ombopag therapy, use of Dimension [place] TBIL is not recommended. Chloride [Moles/Vol] 110 mmol/L 98-107 [facility] Work Phone: Eosinophils/100 WBC (Bld) 11.8 % 0-5 [facility] Work Phone: Glucose [Mass/Vol] 86 mg/dL 74-106 [facility] Work Phone: Neutrophils (Bld) [#/Vol] 1.7 10*3/uL 2.0-7.7 [facility] Work Phone: Neutrophils/100 WBC (Bld) 51.6 % 47-70 [facility] Work Phone: Potassium [Moles/Vol] 2.7 mmol/L 3.5-5.1 [facility] Work Phone: [phone] Comment on above: Critical Result(s) C alled at: 17:06:44 09/26/2021 by: Huber Hamilton to Dr Medina . Results read back by same. Protein [Mass/Vol] 6.5 g/dL 6.4-8.2 [facility] Work Phone: Sodium [Moles/Vol] 141 mmol/L 136-145 [facility] Work Phone: WBC (Bld) [#/Vol] 3.2 10*3/uL 4.4-11.0 [facility] Work Phone: Blood erythrocytes count (nu mber/volume)on 09-26-2021 RBC (Bld) [#/Vol] 3.69 10*6/uL 4.6-6.2 [facility] Work Phone: Blood hemoglobin measurement (mass/volume)on 09-26-2021 Hemoglobin (Bld) [Mass/Vol] 12.2 g/dL 13.0-16.5 [facility] Work Phone: Blood lymphocytes/100 leukoc yteson 09-26-2021 Lymphocytes/100 WBC (Bld) 23.6 % 19-41 [facility] Work Phone: Blood monocytes/100 leukocyt eson 09-26-2021 Monocytes/100 WBC (Bld) 11.5 % 0-10 [facility] Work Phone: Blood platelet mean volumeon 09-26-2021 Platelet mean volume (Bld) [Entitic vol] 8.8 fL 6.2-12.0 [facility] Work Phone: [phone] Determination of erythrocyte mean corpuscular volume (MCV)on 09-26-2021 MCV (RBC) [Entitic vol] 100.3 fL 80-94 [facility] Work Phone: Hematocrit Auto (Bld) [Volum e fraction]on 09-26-2021 Hematocrit (Bld) [Volume fraction] 37.0 % 40-54 [facility] Work Phone: Laboratory - Chemistry and C hemistry - challengeon 09-26-2021 Cobalamin (Vitamin B12) [Mass/Vol] 270 pg/mL 211-911 [facility] Work Phone: ALP [Catalytic activity/Vol] 83 U/L 45-117 [facility] Work Phone: ALT [Catalytic activity/Vol] 38 U/L 16-61 [facility] Work Phone: CO2 [Moles/Vol] 25.0 mmol/L 21.0-32.0 [facility] Work Phone: [phone] Globulin (S) [Mass/Vol] 3.3 g/dL 2.2-4.2 [facility] Work Phone: Urea nitrogen/Creatinine [Mass ratio] 18.4 mg/mg 10-20 [facility] Work Phone: Laboratory - Hematology and Cell countson 09-26-2021 Erythrocyte distribution width (RBC) [Entitic vol] 49.7 fL 35.1-43.9 [facility] Work Phone: Erythrocyte distribution width (RBC) [Ratio] 13.5 % 11.6-14.6 [facility] Work Phone: Immature granulocytes/100 WBC (Bld) 0.300 % 0.0-0.9 [facility] Work Phone: Comment on above: IG% - Immature Granu locytes (promyelocytes, myelocytes and metamyelocytes) > 1% indicates that a LEFT SHIFT is Present. MCH (RBC) [Entitic mass] 33.1 pg 27.0-32.0 [facility] Work Phone: Nucleated RBC/100 WBC (Bld) [Ratio] 0 % 0-5 [facility] Work Phone: MCHC Auto (RBC) [Mass/Vol]on 09-26-2021 MCHC (RBC) [Mass/Vol] 33.0 g/dL 32-36 [facility] Work Phone: No Panel Informationon 09-26 Estimated GFR (MDRD) Amer 130 mL/min >60 [facility] Work Phone: Comment on above: GFR Calc Estimated GFR (MDRD) Non-Af Amer 108 mL/min >60 [facility] Work Phone: Comment on above: Non- GFR Calc Prostate Specific Antigen Screen 0.73 ng/mL 0.00-4.00 [facility] Work Phone: Comment on above: This test was perfor med using the TPSA assay method for the[facility]. Values obtained with differentassay methods cannot be used interchangably.When changing PSA assays in the course of monitoring apatient, additional sequential testing should be carriedout to confirm baseline values. Thyroid Stimulating Hormone (TSH) 3.51 uIU/mL 0.358-3.74 [facility] Work Phone: Vitamin D 25-Hydroxy 13.9 ng/mL [facility] Work Phone: Comment on above: Vitamin D 25(OH) Sta tus Range Deficiency <20 ng/mL (50nmol/L) Insufficiency 20 - 30 ng/mL (50 - 75 nmol/L) Sufficiency 30 - 100 ng/mL (75 - 250 nmol/L) Toxicity >100 ng/mL (>250 nmol/L) Platelets bldon 09-26-2021 Platelets (Bld) [#/Vol] 246 10*3/uL 150-450 [facility] Work Phone: Serum or plasma albumin pretty urement (mass/volume)on 09-26-2021 Albumin [Mass/Vol] 3.2 g/dL 3.2-5.0 [facility] Work Phone: Serum or plasma albumin/glob ulin mass ratioon 09-26-2021 Albumin/Globulin [Mass ratio] 1.0 {ratio} 0.9-2.4 [facility] Work Phone: Serum or plasma calcium pretty urement (mass/volume)on 09-26-2021 Calcium [Mass/Vol] 8.3 mg/dL 8.5-10.1 [facility] Work Phone: Serum or plasma creatinine m easurement (mass/volume)on 09-26-2021 Creatinine [Mass/Vol] 0.76 mg/dL 0.70-1.30 [facility] Work Phone: Comment on above: The validity of the calculated GFR & GFRAA in patients over 70 years has not been determined. Clinical correlation is essential. Serum or plasma urea nitroge n measurement (mass/volume)on 09-26-2021 Urea nitrogen [Mass/Vol] 14 mg/dL 7-18 [facility] Work Phone: Thin prep Papanicolaou smear with manual screeningon 09-26-2021 Thin prep Papanicolaou smear with manual screening 27 U/L 15-37 [facility] Work Phone: Thin prep Papanicolaou smear with manual screening 6 5-15 [facility] Work Phone: PROGRESSon 09-07-2019 PROGRESS HNO ID: [id number] Author: Sergey Ceron Service: General Surgery Author Type: Resident Type: Progress Notes Filed: 09/07/2019 12:22 PM Note Text: Attestation signed by Navneet Benavides at 09/07/2019 12:26 PM I personally saw and examined the patient. I reviewed the resident's note. I agree with the resident's assessment and plan except as noted below. Plan of care discussed with Patient and RN PROGRESS NOTE Elective Surgery Progress Note Elective General Surgery Service Pager: For questions or concerns Mon-Fri 6a-5p please page [phone]. After 5pm and on Weekends and Holidays, please page [phone] if in ICU or [phone] if on RNF. SERVICE DATE: 09/07/2019 SERVICE [...] (Src) 98.2 (Oral) Resp 18 Ht 5' 8" (1.73m) Wt 159 lb (72.1kg) SpO2 98% BMI 24.18 kg/(m2). O2 Therapy: Room Air Temp (24hrs), Av.7 ?C (98 ?F), Min:36.5 ?C (97.7 ?F), Max:36.8 ?C (98.2 ?F) Date 09/06/19699 - 09/07/19 0659 09/07/19 07 - 09/08/19 0659 Shift 4109-4051 1308-6629 6078-7775 24 Hour Total 0426-2608 4223-0416 7748-9312 24 Hour Total INTAKE PO 340 240 [...] September 07, 2019 TIME: 12:21 PM PAGER: [phone] Plan of care discussed with: RN. Normal [facility] Lipase Bloodon 09-06-2019 Lipase Blood 534 U/L High 16-61 [facility] Comment on above: Performed By: #### P T #### [facility] [address] [place] [address] PROGRESSon 09-06-2019 PROGRESS HNO ID: [id number] Author: Julio (Lynne Hancock MD Service: General Surgery Author Type: Resident Type: Progress Notes Filed: 09/06/2019 6:52 AM Note Text: Attestation signed by Navneet Benavides at 09/07/2019 11:46 AM I personally saw and examined the patient. I reviewed the resident's note. I agree with the resident's assessment and plan except as noted below. Plan of care discussed with Patient and RN Delayed entry - I personally saw/examined the patient on 09/06/2019 PROGRESS NOTE Elective Surgery Progress Note Elective General Surgery Service Pager: For questions or concerns Mon-Fri 6a-5p please page [phone]. After 5pm and on Weekends and Holidays, please page [phone] if in ICU or [phone] if on RNF. SERVICE DATE: 09/06/2019 SERVICE [...] (Src) 98.1 (Oral) Resp 18 Ht 5' 8" (1.73m) Wt 159 lb (72.1kg) SpO2 98% BMI 24.18 kg/(m2). O2 Therapy: Room Air Temp (24hrs), Av.7 ?C (98.1 ?F), Min:36.4 ?C (97.5 ?F), Max:36.9 ?C (98.4 ?F) Date 09/05/19 07 - 09/06/19 0659 09/06/19699 - 09/07/19 0659 Shift 3487-6473 4363-3366 5615-1621 24 Hour Total 7920-6657 8519-6918 6386-7632 24 Hour Total INTAKE PO 450 120 240 810 PO 450 120 240 810 IV 1000 1250 2250 Volume (mL) (lactated ringers infusion) 1000 1250 2250 Shift Total 6502 471 9315 3060 OUTPUT Urine 600 600 Void (ml) [...] questions or concerns Mon-Fri 6a-5p please page [phone]. After 5pm and on Weekends and Holidays, please page [phone] if in ICU or [phone] if on RNF. SIGNATURE: Julio Hancock MD PATIENT NAME: Moustapha Vasquez DATE: September 06, 2019 TIME: 6:50 AM PAGER: [facility] CASE MANAGEMon 09-05-2019 CASE MANAGEM HNO ID: [id number] Author: Tammy Barrios Service: Care Management Author [...] 05, 2019 TIME: 11:02 AM PAGER/CONTACT #: [phone] [facility] CONSULT PROGon 09-05-2019 CONSULT PROG HNO ID: [id number] Author: Nabila Olivas (Pa) Service: Gastroenterology Author Type: Physician Community Action Worker Type: Consult Progress Note Filed: 09/05/2019 3:11 [...] (Tympanic) Resp 18 Ht 172.7 cm (5' 8") Wt 72.1 kg (159 lb) SpO2 98% [...] planning for whipple September [address] Ali - Dispo: likely DC today or early in AM - GI will sign off D/w Dr. Acevedo. SIGNATURE: Nabila Olivas PA-C PATIENT NAME: Moustapha Vasquez DATE: September 05, 2019 TIME: 3:04 PM PAGER/CONTACT #: [phone] [facility] Hepatic Function Panelon Albumin [Mass/Vol] 3.1 g/dL Low 3.9-4.9 [facility] Comment on above: Performed By: #### H FP #### [facility] [address] [place], [place] [address] ALP [Catalytic activity/Vol] 438 U/L High 38-113 [facility] Comment on above: Performed By: #### H FP #### [address] [address] ALT [Catalytic activity/Vol] 168 U/L High 10-54 [facility] Comment on above: Performed By: #### H FP #### [address] [address] AST [Catalytic activity/Vol] 97 U/L High 14-40 [facility] Comment on above: Performed By: #### H FP #### [facility] [address] [place], [place] [address] Bilirubin [Mass/Vol] 3.7 mg/dL High 0.2-1.3 [facility] Comment on above: Performed By: #### H FP #### [address] [address] Bilirubin [Mass/Vol] 2.3 mg/dL High 0.0-0.2 [facility] Comment on above: Performed By: #### H FP #### [facility] [address] [place], [place] [address] Protein [Mass/Vol] 6.0 g/dL Low 6.3-8.0 [facility] Comment on above: Performed By: #### H FP #### [address] [address] PROGRESSon 09-05-2019 PROGRESS HNO ID: [id number] Author: German (Lynne Cruz DO Service: General Surgery Author Type: Resident Type: Progress Notes Filed: 09/05/2019 8:13 AM Note Text: Attestation signed by Margarita Castillo at 09/19/2019 [...] on surgical resection in a few weeks Elective General Surgery Progress Note SERVICE DATE: 09/05/2019 Elective General Surgery Service Pager: For questions or concerns Mon-Fri 6a-5p please page [phone]. After 5pm and on Weekends and Holidays, please page [phone] if in ICU or [phone] if on RNF. SUBJECTIVE: NAEON. Having some pain s/p ERCP. Tolerable pain. Plan for whipple on the 21 of September. Tolerating diet DIET LIQUID OBJECTIVE: Vitals: Temp (24hrs), Av.6 ?C (97.8 ?F), Min:36 ?C (96.8 ?F), Max:36.9 ?C (98.4 ?F) BP 112/67 Pulse 88 Temp 36.6 ?C (97.9 ?F) (Oral) Resp 16 Ht 172.7 cm (5' 8") Wt 72.1 kg (159 lb) SpO2 99% BMI 24.18 kg/m? O2 Therapy: Room Air IANDO: Date 09/04/19 07 - 09/05/19 0659 09/05/19 07 - 09/06/19 0659 Shift 4250-6668 7966-6159 5764-3919 24 Hour Total 8339-0732 2873-3723 6522-6734 24 Hour Total INTAKE PO 120 360 480 PO 120 360 480 IV 1400 1250 2650 OR Crystalloid intake (mL) 800 800 Volume (mL) (lactated ringers infusion) 1250 1250 Volume (mL) (lactated ringers infusion) 200 200 Volume (mL) (lactated ringers infusion) 400 400 Shift Total 2917 216 9013 3130 OUTPUT Urine 634 581 0921 Void (ml) 658 525 4468 # of BMs Number of BMs 1 x 1 x Shift Total 316 532 5424 Weight (kg) 72.1 72.1 72.1 72.1 72.1 [...] Labs: Recent Labs 09/05/19 0500 09/03/19 0742 05/12/20 1400 NA -- 138 141 K -- [...] questions or concerns Mon-Fri 6a-5p please page [phone]. After 5pm and on Weekends and Holidays, please page [phone]. Normal [facility] ANES Sarah 09-04-2019 ANES POST HNO ID: [id number] Author: Arnol Kuo Service: Anesthesiology Author Type: [...] 1553 Resp: 16 12 15 16 09/04/19 14109/04/19 1430 09/04/19 1445 09/04/19 1553 SpO2: 100% [...] 04, 2019 TIME: 4:52 PM PAGER/CONTACT #: [facility] ANES PREOPon 09-04-2019 ANES PREOP HNO ID: [id number] Author: Cecil Walter Service: Anesthesiology Author Type: Physician Type: Anesthesia PreOp Filed: 09/04/2019 11:08 AM Note Text: ANESTHESIOLOGY DAY OF SURGERY NOTE SERVICE DATE: 09/04/2019 SERVICE TIME: 1100 : 1950 Procedure(s) (LRB): ERCP W/ BRUSHING (N/A) Surgeon(s): Pily Acevedo Estimated body mass index is 24.18 kg/m? as calculated from the following: Height as of this encounter: 172.7 cm (5' 8"). Weight as of this encounter: 72.1 kg [...] SURGICAL HISTORY Procedure Laterality Date - LAP CHOLECYSTECT/CHOLANGIOGRAPH Y 02-10-08 - UPPER ARM/ELBOW SURGERY UNLISTED Left [...] AND THROAT) q 2 H PRN Sergey Antoneb - [MAR Hold due to Transfer] melatonin 3 mg tab(s) 3 mg ORAL DAILY (8 PM) German MillerIzzy) Anthony, DO 3 mg at 09/03/192054 - [MAR Hold due to Transfer] acetaminophen 325 mg tab(s) (TYLENOL) 325 mg ORAL q 4 H PRN German (Izzy) Anthony, DO - [MAR Hold due to [...] INTRAVENOUS CONTINUOUS Aijaz Kristina 75 mL/hr at 09/02/192099 75 mL/hr at [...] September 04, 2019 TIME: 10:57 AM CSN: [id number] [facility] CASE MANAGEMon 09-04-2019 CASE MANAGEM HNO ID: [id number] Author: Corie Douglas (Sw) Service: ? Author Type: [employer] Supervisor Type: Care Mgt Progress Note Filed: 09/04/2019 [...] 04, 2019 TIME: 10:32 AM PAGER/CONTACT #: [phone] [facility] CASE MANAGEM HNO ID: [id number] Author: Sosa (Rn) YOEL Jean Service: Care Management Author Type: [...] 04, 2019 TIME: 9:15 AM PAGER/CONTACT #: [phone] [facility] NURSING PROGon 09-04-2019 NURSING PROG HNO ID: [id number] Author: Elijah MillerRn) YOEL Willingham Service: ? Author Type: Registered Nurse Type: Nursing Progress Note Filed: 09/04/2019 2:28 PM Note Text: Dr Acevedo in at bedside talking to pt [facility] OPERATIVE NOon 09-04-2019 OPERATIVE NO HNO ID: [id number] Author: Pily Acevedo Service: Gastroenterology Author Type: Physician Type: Operative Report Filed: 09/04/2019 1:02 PM Note Text: OPERATIVE/PROCEDURE REPORT LOG ID: [id number] Surgery/Procedure Date: 09/04/2019 Incision/Procedure Start Time: 12:05 PM Incision Close/Procedure End Time: Surgeon(s)/Proceduralist(s) and Community Action Worker(s): Surgeon(s) and Role: * Pily Acevedo - [...] 04, 2019 TIME: 12:53 PM PAGER/CONTACT #: [phone] [facility] PROGRESSon 09-04-2019 PROGRESS HNO ID: [id number] Author: Celeste Mcmahan Service: General Surgery Author Type: Resident Type: Progress Notes Filed: 09/04/2019 7:31 AM Note Text: Attestation signed by Margarita Castillo at 09/04/2019 7:18 PM Attending Note I personally saw and examined the patient. I reviewed the resident's note. I agree with the resident's assessment and plan with the following revisions and/or additions: Await ERCP today. Signature: Margarita Castillo MD Date: 09/04/2019 Time: 7:18 PM [facility] General Surgery Progress Note SERVICE DATE: 09/04/2019 Elective General Surgery Service Pager: For questions or concerns Mon-Fri 6a-5p please page [phone]. After 5pm and on Weekends and Holidays, please page [phone] if in ICU or [phone] if on RNF. SUBJECTIVE: NAEON. Denies fevers, [...] (Oral) Resp 18 Ht 172.7 cm (5' 8") Wt 72.1 kg (159 lb) SpO2 98% BMI 24.18 kg/m? O2 Therapy: Room Air IANDO: Date 09/03/19699 - 09/04/19 0659 09/04/19 07 - 09/05/19 0659 Shift 9184-8571 9588-2804 6721-3755 24 Hour Total 3200-4189 3537-5066 5936-0108 24 Hour Total INTAKE PO 360 360 [...] questions or concerns Mon-Fri 6a-5p please page [phone]. After 5pm and on Weekends and Holidays, please page [phone]. [facility] PT EDon 09-04-2019 PT ED HNO ID: [id number] Author: Luna (Rn) YOEL Olivas Service: ? [...] Olivas (RN) In Department: [place] SURGERY OR [facility] XR ERCP READ ONLYon 09-04-19 XR ERCP READ ONLY * * *Final Report* * * DATE OF EXAM: Sep 04 2019 1:01PM [facility] 5565 - XR ERCP READ ONLY / [...] bile duct stricture and placement of Wallstent. Street Supervisor: LUIS Transcribe Date/Time: Sep 04 2019 1:43P Dictated by : MANASA JANE MD This examination was interpreted and the report reviewed and electronically signed by: MANASA JANE MD on Sep 04 2019 1:45PM EST [facility] ANES Sarah 09-03-2019 ANES POST HNO ID: [id number] Author: Cecil Walter Service: Anesthesiology Author Type: [...] 03, 2019 TIME: 2:50 PM PAGER/CONTACT #: [facility] ANES PREOPon 09-03-2019 ANES PREOP HNO ID: [id number] Author: Cecil Walter Service: Anesthesiology Author Type: Physician Type: Anesthesia PreOp Filed: 09/03/2019 10:45 AM Note Text: ANESTHESIOLOGY DAY OF SURGERY NOTE SERVICE DATE: 09/03/2019 SERVICE TIME: 1020 : 1950 Procedure(s) (LRB): ENDOSCOPY UPPER GI W/ ENDOSCOPIC ULTRASOUND EXAMINATION, (Left) Surgeon(s): Pily Acevedo Estimated body mass index is 24.18 kg/m? as calculated from the following: Height as of this encounter: 172.7 cm (5' 8"). Weight as of this encounter: 72.1 kg [...] SURGICAL HISTORY Procedure Laterality Date - LAP CHOLECYSTECT/CHOLANGIOGRAPH Y 02-10-08 - UPPER ARM/ELBOW SURGERY UNLISTED Left [...] iv contrast (radiology procedure) INTRAVENOUS DIRECTED PRN Julio Hancock MD And - [MAR Hold due [...] September 03, 2019 TIME: 10:44 AM CSN: [id number] Normal [facility] [id number] 09-03-2019 CA19-9 140.7 U/ml High 0.0-35.0 [facility] Comment on above: Performed By: #### C A199 #### [facility] [address] [place] [address] CONSULTon 09-03-2019 CONSULT HNO ID: [id number] Author: Susana Brown Service: Gastroenterology Author Type: Nurse Practitioner Type: Consults Filed: 09/03/2019 9:54 AM Note Text: CONSULT: GI SERVICE SERVICE DATE: 09/03/2019 SERVICE TIME: 8:55 am REASON FOR CONSULT: EUS REQUESTING PHYSICIAN: surgery PRIMARY CARE PHYSICIAN: Anjelica Mendoza MD Subjective Mr. Vasquez is a 69 year old male who presents from [facility] as transfer for pancreatic mass. PMHx of acute cholecystitis s/p lap joshua 2007. GI was consulted for EUS. Patient reports fatigues, loss of appetite and weight loss for 2 weeks. He states that he was also told that he is jaundice at [facility]. He does c/o shortness of breath with activity as well. He denies any fever, no chest pain and no shortness of breath at rest. He did have workup done at [facility] for obstructive jaundice and MRCP showed a mass in the pancreatic head so patient was transferred to [facility] under general surgery. He does not take [...] SURGICAL HISTORY Procedure Laterality Date - LAP CHOLECYSTECT/CHOLANGIOGRAPH Y 02-10-08 No family history on file. Social [...] (Src) 98.4 (Oral) Resp 16 Ht 5' 8" (1.73m) Wt 159 lb (72.1kg) SpO2 100% [...] loss and fatigue who was transferred from [facility] for pancreatic mass. He had workup [...] per primary team EUS today with Dr. Kristina REYES will follow SIGNATURE: Susana Brown APRN.CNP PATIENT NAME: Moustapha Vasquez DATE: September 03, 2019 TIME: 9:18 AM PAGER: [phone] [facility] Comprehensive Metabolic Pane kendrick 09-03-2019 Albumin [Mass/Vol] 3.3 g/dL Low 3.9-4.9 [facility] Comment on above: Performed By: #### C MP #### [facility] [address] [place], [place] [address] ALP [Catalytic activity/Vol] 495 U/L High 38-113 [facility] Comment on above: Performed By: #### C MP #### [facility] [address] [place], [place] [address] ALT [Catalytic activity/Vol] 228 U/L High 10-54 [facility] Comment on above: Performed By: #### C MP #### [address] [address] Anion gap [Moles/Vol] 11 mmol/L Normal 9-18 [facility] Comment on above: Performed By: #### C MP #### [facility] [address] [place], [place] [address] AST [Catalytic activity/Vol] 178 U/L High 14-40 [facility] Comment on above: Performed By: #### C MP #### [address] [address] Bilirubin [Mass/Vol] 5.9 mg/dL High 0.2-1.3 [facility] Comment on above: Performed By: #### C MP #### [facility] [address] [place], [place] [address] Calcium [Mass/Vol] 8.7 mg/dL Normal 8.5-10.2 [facility] Comment on above: Performed By: #### C MP #### [address] [address] Chloride [Moles/Vol] 102 mmol/L Normal 97-105 [facility] Comment on above: Performed By: #### C MP #### [facility] [address] [place], [place] [address] CO2 Blood 25 mmol/L Normal 22-30 [facility] Comment on above: Performed By: #### C MP #### [facility] [address] [place], [place] [address] Creatinine [Mass/Vol] 0.65 mg/dL Low 0.73-1.22 [facility] [place] Comment on above: Performed By: #### C MP #### [facility] [address] [place], [place] [address] Glucose [Mass/Vol] 122 mg/dL High 74-99 [facility] Comment on above: Result Comment: The [place] Diabetes Association (ADA) provides guidance for cutoff [...] Standards of Medical Care in Diabetes 2016; [place] [employer]. Diabetes Care. 2016;39(Suppl 1). Performed By: #### C MP #### [facility] [address] [place], [place] [address] Potassium [Moles/Vol] 3.3 mmol/L Low 3.7-5.1 [facility] [place] Comment on above: Performed By: #### C MP #### [facility] [address] [place], [place] [address] Protein [Mass/Vol] 6.2 g/dL Low 6.3-8.0 [facility] Comment on above: Performed By: #### C MP #### [facility] [address] [place], [place] [address] Sodium [Moles/Vol] 138 mmol/L Normal 136-144 [facility] Comment on above: Performed By: #### C MP #### [facility] [address] [place], [place] [address] Urea nitrogen [Mass/Vol] 5 mg/dL Low 9-24 [facility] Comment on above: Performed By: #### C MP #### [address] [address] Cytology, Medicalon 09-03-19 20 Cytology, Medical Test performed at [address] [address] NAME: MOUSTAPHA VASQUEZ REQUESTING: MARGARITA CASTILLO MD COPY TO: PILY ACEVEDO DIAGNOSIS PANCREATIC HEAD MASS, ENDOSCOPIC ULTRASOUND GUIDED ASPIRATION - POSITIVE FOR MALIGNANT CELLS. ADENOCARCINOMA. COMMENT A KERATIN STAIN IS POSITIVE WITHIN NEOPLASTIC CELLS. THE CASE HAS BEEN REVIEWED AT [facility] AND A SEPARATE CONCURRING REPORT HAS [...] 2, 3, 5, 6: Not adequate by School Bus Driver/Custodian: RUPERTO. ADQ # 4, 7: Adequate by School Bus Driver/Custodian: RUPERTO. Electronically Signed: 09/10/2019 Screened by: DEEPTI MCDONNELL(ASCP) Signed Out by: JAYESH DAVIDSON M.D., PATHOLOGIST Printed on: September 10, 2019 Page 1 of 1 Normal [facility] Comment on above: Performed By: #### P T #### [facility] [address] [place], [place] [address] MDRD GFRon 09-03-2019 GFR/1.73 sq M predicted among non-blacks MDRD (S/P/Bld) [Vol rate/Area] mL/min/{1.73_m2} Normal >60mL/min/1 .73m2 [facility] Comment on above: Result Comment: If t he patient is , multiply the result by 1.210. Performed By: #### G FR #### [facility] [address] [place], [place] [address] OPERATIVE NOon 09-03-2019 OPERATIVE NO HNO ID: [id number] Author: Pily Acevedo Service: Gastroenterology Author Type: Physician Type: Operative Report Filed: 09/03/2019 1:23 PM Note Text: OPERATIVE/PROCEDURE REPORT LOG ID: [id number] Surgery/Procedure Date: 09/03/2019 Incision/Procedure Start Time: 11:46 AM Incision Close/Procedure End Time: Surgeon(s)/Proceduralist(s) and Community Action Worker(s): Surgeon(s) and Role: * Pliy Acevedo - Primary No Additional Staff Procedure(s): [...] portal vein or other major vessels. Using Chirpify 22 G needle, 7 passes made into the mass and tissue obtained. On site table hand confirmed adequate tissue sample. In addition, one [...] September 03, 2019 TIME: 1:12 PM PAGER/CONTACT #:[phone] [facility] PROGRESSon 09-03-2019 PROGRESS HNO ID: [id number] Author: Virginie Moss MD Service: General Surgery Author Type: Resident Type: Progress Notes Filed: 09/03/2019 8:23 AM Note Text: Attestation signed by Margarita Castillo at 09/03/2019 10:26 AM Attending Note I personally saw and examined the patient. I reviewed the resident's note. I agree with the resident's assessment and plan with the following revisions and/or additions: Await EUS today. CT did not show a distinct mass. Biliribun higher today. Signature: Margarita Castillo MD Date: 09/03/2019 Time: 10:25 AM Elect[facility] General Surgery Progress Note SERVICE DATE: 09/03/2019 Elective General Surgery Service Pager: For questions or concerns Mon-Fri 6a-5p please page [phone]. After 5pm and on Weekends and Holidays, please page [phone] if in ICU or [phone] if on [...] (Temporal) Resp 16 Ht 172.7 cm (5' 8") Wt 72.1 kg (159 lb) SpO2 99% BMI 24.18 kg/m? O2 Therapy: Room Air IANDO: Date 09/02/19699 - 09/03/1965809/03/19699 - 09/04/19 0659 Shift 2604-6507 5222-3458 3528-2068 24 Hour Total 5035-1610 1132-2834 4755-3941 24 Hour Total INTAKE PO 200 200 [...] questions or concerns Mon-Fri 6a-5p please page [phone]. After 5pm and on Weekends and Holidays, please page [phone]. Normal [facility] PT EDon 09-03-2019 PT ED HNO ID: [id number] Author: Bisi MillerRn) YOEL Dunlap Service: Nursing Author Type: Registered Nurse Type: Patient Education Filed: 09/03/2019 1:31 PM Note Text: ONGOING PATIENT EDUCATION TOPIC Reinforced: sedation Patient Name: [facility]oustapha [facility]quez [facility] Readiness To Learn Motivation To Learn: Interested Instruction Provided To: Patient Learning Response Patient/Family Response: Verbalizes understanding of: POST-PROCEDURE INSTRUCTIONS-Correct actions to take to reduce post procedure complications Method of Instruction: Verbal instruction Follow-Up Plan: Complete - No need for follow-up Electronically signed by: Bisi Dunlap RN [facility] PT ED HNO ID: [id number] Author: Libia MillerRn) YOEL Lovell Service: Nursing [...] Signed By: Libia Lovell RN In Department: [facility] ALLIED [facility] 09-02-2019 ALLIED HEALTH HNO ID: [id number] Author: Mari Peralta (Chaplain) Service: ? 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 Actively listened to PT, connected PT with his ganga, and prayed with PT. To contact the Spiritual Care Department: Please call [phone]. SIGNATURE: Chaplain Pa PATIENT NAME: Moustapha Vasquez DATE: September 02, 2019 TIME: 3:55 PM PAGER/CONTACT #: [phone] [facility] CASE MGT INIT ASSESon 2019 CASE MGT INIT ASSES HNO ID: [id number] Author: Sosa MillerRnAntelmo Jean RN Service: Care Management Author Type: Registered Nurse [...] if he has Rx coverage. Will follow. 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 Last discharge within 30 days: No Advance Directive: Current Advance Directive: None Chainstitch Tunnel Elastic Operator Attempted to Assist with AD Completion: Yes [...] With: Alone Financial Resources: EmployedPrimary Contact: Shiva Christina Relation: Son Phone number: [phone] Supportive Patient Contact:: Yes Contact Resources: Family [...] Adherance Assessement not completed due to: No SUPERVISOR DELIVERY DEPARTMENT meds Are you interested in bedside delivery of your medications? Yes Is Patient Psychosocially Complex?: Yes, refer to Social Work ASSESSMENT AND PLAN: Medical Needs: Medical Needs: None Psychosocial Needs: Psychosocial Needs: Other: See Comment(Depression Screen. Social work consulted.) FREEDOM OF CHOICE EXPLAINED: Farber of Choice Given: No Reason Not Given: [...] 02, 2019 TIME: 3:56 PM PAGER/CONTACT #: [phone] [facility] CONSULTon 09-02-2019 CONSULT HNO ID: [id number] Author: Patrick Recinos Service: Cardiovascular Medicine Author [...] past medical history who was transferred from [facility] due to findings of a pancreatic mass. [...] month. Given his symptoms, he went to [facility] with workup revealing findings consistent with obstructive jaundiced an MRCP revealing a mass in the pancreatic head. As a result, he was transferred to [facility] for evaluation for surgery. In discussion with [...] cardiac evaluation a few months ago at [facility] with an echocardiogram which was unremarkable per his report. PAST MEDICAL HISTORY Diagnosis Date - Acute cholecystitis PAST SURGICAL HISTORY Procedure Laterality Date - LAP CHOLECYSTECT/CHOLANGIOGRAPH Y 02-10-08 Left elbow surgery Family history: Notable [...] kg (159 lb) Height: 172.7 cm (5' 8") Patient Vitals for the past 12 hrs: BP Temp Temp src Pulse Resp SpO2 Height Weight 09/02/19 1239 151/88 36.7 ?C (98.1 ?F) Axillary 78 16 98 % 172.7 cm (5' 8") 72.1 kg (159 lb) General appearance: Jaundiced [...] TTE within the last few months at [facility] which was unremarkable per patient report I personally reviewed patient's labs, EKG, and records from [facility]. AANDP: Mr. Vasquez is a 69 year old male with no significant past medical history who was transferred from [facility] due to findings of a pancreatic mass. Cardiology consulted for preoperative cardiac risk assessment. 1. Pre-operative cardiac assessment: Mr. Vasquez does not have any high-risk features of unstable angina, decompensated heart failure, severe valve disease, or malignant arrhythmias. His EKG reveals normal sinus rhythm without any ischemic changes. He also reports having had a recent echocardiogram (which has been requested from [facility]) which was reportedly unremarkable. In addition, he [...] 02, 2019 TIME: 3:44 PM PAGER/CONTACT #: [phone] [facility] CT CHEST W IVCONon 0 CT CHEST W IVCON * * *Final Report* * * DATE OF EXAM: Sep 02 2019 4:51PM [facility] 0539 - CT CHEST W IVCON / [...] identified in the rest of the chest. Street Supervisor: PSCB Transcribe Date/Time: Sep 02 2019 6:30P Dictated by : ALAYNA BENJAMIN MD This examination was interpreted and the report reviewed and electronically signed by: ALAYNA BENJAMIN MD on Sep 02 2019 6:35PM EST Normal [facility] CT PANCREAS/PELVIS W IVCONon 09-02-2019 CT PANCREAS/PELVIS W IVCON * * *Final Report* * * DATE OF EXAM: Sep 02 2019 4:51PM [facility] 0553 - CT PANCREAS/PELVIS W IVCON / [...] significant abdominal or pelvic abnormality is appreciated. Street Supervisor: PSCB Transcribe Date/Time: Sep 02 2019 6:39P Dictated [...] C MP #### [facility] [address] [place], [place] [address] ALP [Catalytic activity/Vol] 518 U/L High 38-113 [facility] Comment on above: Performed By: #### C MP #### [facility] [address] [place], [place] [address] ALT [Catalytic activity/Vol] 230 U/L High 10-54 [facility] Comment on above: Performed By: #### C MP #### [facility] [address] [place], [place] [address] Anion gap [Moles/Vol] 12 mmol/L Normal 9-18 [facility] Comment on above: Performed By: #### C MP #### [facility] [address] [place], [place] [address] AST [Catalytic activity/Vol] 161 U/L High 14-40 [facility] Comment on above: Performed By: #### C MP #### [facility] [address] [place], [place] [address] Bilirubin [Mass/Vol] 5.6 mg/dL High 0.2-1.3 [facility] Comment on above: Performed By: #### C MP #### [facility] [address] [place], [place] [address] Calcium [Mass/Vol] 8.9 mg/dL Normal 8.5-10.2 [facility] Comment on above: Performed By: #### C MP #### [facility] [address] [place], [place] [address] Chloride [Moles/Vol] 102 mmol/L Normal 97-105 [facility] Comment on above: Performed By: #### C MP #### [facility] [address] [place], [place] [address] CO2 Blood 27 mmol/L Normal 22-30 [facility] Comment on above: Performed By: #### C MP #### [facility] [address] [place], [place] [address] Creatinine [Mass/Vol] 0.69 mg/dL Low 0.73-1.22 [facility] Comment on above: Performed By: #### C MP #### [facility] [address] [place], [place] [address] Glucose [Mass/Vol] 135 mg/dL High 74-99 [facility] Comment on above: Result Comment: The [place] Diabetes [employer] (ADA) provides guidance for cutoff [...] Standards of Medical Care in Diabetes 2016; [place] [employer]. Diabetes Care. 2016;39(Suppl 1). Performed By: #### C MP #### [facility] [address] [place], [place] [address] Potassium [Moles/Vol] 3.8 mmol/L Normal 3.7-5.1 [facility] Comment on above: Performed By: #### C MP #### [facility] [address] [place], [place] [address] Protein [Mass/Vol] 6.6 g/dL Normal 6.3-8.0 [facility] Comment on above: Performed By: #### C MP #### [facility] [address] [place], [place] [address] Sodium [Moles/Vol] 141 mmol/L Normal 136-144 [facility] Comment on above: Performed By: #### C MP #### [facility] [address] [place], [place] [address] Urea nitrogen [Mass/Vol] 8 mg/dL Low 9-24 [facility] Comment on above: Performed By: #### C PHYLLIS #### [facility] [address] [place], [place] [address] HISTORY PHYSICALon 0 HISTORY PHYSICAL HNO ID: [id number] Author: Moustapha Gasca MD Service: General Surgery Author Type: Resident Type: HANDP Filed: 09/02/2019 1:53 PM Note Text: Attestation signed by Margarita Castillo at 09/02/2019 [...] Castillo MD Date: 09/02/2019 Time: 5:05 PM GENERAL SURGERY HANDP Pt: MOUSTAPHA VASQUEZ Date of Admission: 09/02/2019 Chief Complaint: Pancreatic mass HPI: 69 year old male presented to [facility] with a pancreatic mass. Patient originally [...] SURGICAL HISTORY Procedure Laterality Date - LAP CHOLECYSTECT/CHOLANGIOGRAPH Y 02-10-08 Allergies: Patient has no known allergies. [...] (Axillary) Resp 16 Ht 172.7 cm (5' 8") Wt 72.1 kg (159 lb) SpO2 98% [...] HOSPon 09-02-2019 HOSP Patient:Moustapha Vasquez MRN: Height:5' 8"(1.727 m) Weight:159 lb (72.122 kg) Outpatient Medications [...] 40.1 Progress Notes (): Moustapha Gasca MD, MD 09/02/2019 1:53 PM Attested Attestation signed by Margarita Castillo at 09/02/2019 [...] Castillo MD Date: 09/02/2019 Time: 5:05 PM GENERAL SURGERY HANDP Pt: MOUSTAPHA VASQUEZ Date of Admission: 09/02/2019 Chief Complaint: Pancreatic mass HPI: 69 year old male presented to [facility] with a pancreatic mass. Patient originally [...] SURGICAL HISTORY Procedure Laterality Date - LAP CHOLECYSTECT/CHOLANGIOGRAPH Y 02-10-08 Allergies: Patient has no known allergies. [...] (Axillary) Resp 16 Ht 172.7 cm (5' 8") Wt 72.1 kg (159 lb) SpO2 98% [...] past medical history who was transferred from [facility] due to findings of a pancreatic mass. [...] month. Given his symptoms, he went to [facility] with workup revealing findings consistent with obstructive jaundiced an MRCP revealing a mass in the pancreatic head. As a result, he was transferred to [facility] for evaluation for surgery. In discussion with the patient, he denies any cardiac complaints. He specifically denies any complaints of exertional chest pain, dyspnea on exertion, orthopnea, paroxysmal nocturnal dyspnea, lower extremity edema, presyncope, syncope, or palpitations. He reports that he exercises on a regular basis and was doing a high intensity exercise routine on a [employer] for 10-20 minutes daily without limitations. 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 Patient does report he had cardiac evaluation a few months ago at [facility] with an echocardiogram which was unremarkable per his report. PAST MEDICAL HISTORY Diagnosis Date - Acute cholecystitis PAST SURGICAL HISTORY Procedure Laterality Date - LAP CHOLECYSTECT/CHOLANGIOGRAPH Y 02-10-08 Left elbow surgery Family history: Notable [...] kg (159 lb) Height: 172.7 cm (5' 8") Patient Vitals for the past 12 hrs: BP Temp Temp src Pulse Resp SpO2 Height Weight 09/02/19 1239 151/88 36.7 ?C (98.1 ?F) Axillary 78 16 98 % 172.7 cm (5' 8") 72.1 kg (159 lb) General appearance: Jaundiced [...] TTE within the last few months at [facility] which was unremarkable per patient report I personally reviewed patient's labs, EKG, and records from [facility]. AANDP: Mr. Vasquez is a 69 year old male with no significant past medical history who was transferred from [facility] due to findings of a pancreatic mass. Cardiology consulted for preoperative cardiac risk assessment. 1. Pre-operative cardiac assessment: Mr. Vasquez does not have any high-risk features of unstable angina, decompensated heart failure, severe valve disease, or malignant arrhythmias. His EKG reveals normal sinus rhythm without any ischemic changes. He also reports having had a recent echocardiogram (which has been requested from [facility]) which was reportedly unremarkable. 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 Actively listened to PT, connected PT with his ganga, and prayed with PT. To contact the Spiritual Care Department: Please call [phone]. SIGNATURE: Chaplain Pa PATIENT NAME: Moustapha Vasquez [...] if he has Rx coverage. Will follow. 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 Yes Is Patient Psychosocially Complex?: Yes, refer to Social Work ASSESSMENT AND PLAN: Medical Needs: Medical Needs: None Psychosocial Needs: Psychosocial Needs: Other: See Comment(Depression Screen. Social work consulted.) FREEDOM OF CHOICE EXPLAINED: Farber of Choice Given: No Reason Not Given: [...] 02, 2019 TIME: 3:56 PM PAGER/CONTACT #: [phone] Previous Version Nicole Kwok (Jewelry Drilling Machine Operator) 09/02/2019 4:34 PM Addendum LINUX NETWORK ENGINEER BEDSIDE DELIVERY SURVEY 1. Patient to use [facility] Bedside Delivery - YES Insurance Information as follows: 2. Insurance card on file - NO 3. Credit card for payment - N/A Patient elected to use bedside delivery. No prescriptions currently written. Please call pharmacy bedside delivery at [phone] or [phone] when patient has discharge orders and prescriptions are ready to be filled and delivered prior to discharge. Thank you. Nicole Kwok (Jewelry Drilling Machine Operator) Previous Version Virginie Moss MD, MD 09/03/2019 8:23 AM Attested Attestation signed by Margarita Castillo at 09/03/2019 10:26 AM Attending Note I personally saw and examined the patient. I reviewed the resident's note. I agree with the resident's assessment and plan with the following revisions and/or additions: Await EUS today. CT did not show a distinct mass. Biliribun higher today. Signature: Margarita Castillo MD Date: 09/03/2019 Time: 10:25 AM Elective General Surgery Progress Note SERVICE DATE: 09/03/2019 Elective General Surgery Service Pager: For questions or concerns Mon-Fri 6a-5p please page [phone]. After 5pm and on Weekends and Holidays, please page [phone] if in ICU or [phone] if on RNF. SUBJECTIVE: NAEON. Denies fevers, [...] (Temporal) Resp 16 Ht 172.7 cm (5' 8") Wt 72.1 kg (159 lb) SpO2 99% BMI 24.18 kg/m? O2 Therapy: Room Air IANDO: Date 09/02/19699 - 09/03/1965809/03/19699 - 09/04/19 0659 Shift 0059-1807 9278-1099 0418-0452 24 Hour Total 1241-8580 4294-9645 5726-1514 24 Hour Total INTAKE PO 200 200 [...] questions or concerns Mon-Fri 6a-5p please page [phone]. After 5pm and on Weekends and Holidays, please page [phone]. Susana Brown, [facility] 09/03/2019 9:54 AM Signed CONSULT: GI SERVICE SERVICE DATE: 09/03/2019 SERVICE TIME: 8:55 am REASON FOR CONSULT: EUS REQUESTING PHYSICIAN: surgery PRIMARY CARE PHYSICIAN: Anjelica Mendoza MD Subjective Mr. Vasquez is a 69 year old male who presents from [facility] as transfer for pancreatic mass. PMHx of acute cholecystitis s/p lap ojshua 2007. GI was consulted for EUS. Patient reports fatigues, loss of appetite and weight loss for 2 weeks. He states that he was also told that he is jaundice at [facility]. He does c/o shortness of breath with activity as well. He denies any fever, no chest pain and no shortness of breath at rest. He did have workup done at [facility] for obstructive jaundice and MRCP showed a mass in the pancreatic head so patient was transferred to [facility] under general surgery. He does not take [...] SURGICAL HISTORY Procedure Laterality Date - LAP CHOLECYSTECT/CHOLANGIOGRAPH Y 02-10-08 No family history on file. Social [...] (Src) 98.4 (Oral) Resp 16 Ht 5' 8" (1.73m) Wt 159 lb (72.1kg) SpO2 100% [...] loss and fatigue who was transferred from [facility] for pancreatic mass. He had workup [...] Acevedo GI will follow SIGNATURE: Susana Brown APRN.LOGGING EQUIPMENT MECHANIC PATIENT NAME: Moustapha Vasquez DATE: September 03, 2019 TIME: 9:18 AM PAGER: [phone] Libia Lovell, RN, RN 09/03/2019 9:52 AM Signed PRE [...] as of this encounter: 172.7 cm (5' 8"). Weight as of this encounter: 72.1 kg [...] SURGICAL HISTORY Procedure Laterality Date - LAP CHOLECYSTECT/CHOLANGIOGRAPH Y 02-10-08 - UPPER ARM/ELBOW SURGERY UNLISTED Left [...] September 03, 2019 TIME: 10:44 AM CSN: [id number] Pily Acevedo MD 09/03/2019 1:23 PM Signed OPERATIVE/PROCEDURE REPORT LOG ID: [id number] Surgery/Procedure Date: 09/03/2019 Incision/Procedure Start Time: 11:46 AM Incision Close/Procedure End Time: Surgeon(s)/Proceduralist(s) and Community Action Worker(s): Surgeon(s) and Role: * Pily Acevedo - [...] the mass and tissue obtained. On site table hand confirmed adequate tissue sample. In addition, one [...] September 03, 2019 TIME: 1:12 PM PAGER/CONTACT #:[phone] Bisi Dunlap RN, RN 09/03/2019 1:31 PM [...] questions or concerns Mon-Fri 6a-5p please page [phone]. After 5pm and on Weekends and Holidays, [...] (Oral) Resp 18 Ht 172.7 cm (5' 8") Wt 72.1 kg (159 lb) SpO2 98% BMI 24.18 kg/m? O2 Therapy: Room Air IANDO: Date 09/03/19699 - 09/04/19 0659 09/04/19 07 - 09/05/19 0659 Shift 4747-4817 5063-2416 7566-7673 24 Hour Total 4107-6069 9252-7238 1843-5743 24 Hour Total INTAKE PO 360 360 [...] questions or concerns Mon-Fri 6a-5p please page [phone]. After 5pm and on Weekends and Holidays, please page [phone]. Sosa Jean RN, RN 09/04/2019 9:17 AM [...] 04, 2019 TIME: 9:15 AM PAGER/CONTACT #: [phone] MARA Camacho 09/04/2019 10:40 AM Signed CARE [...] 04, 2019 TIME: 10:32 AM PAGER/CONTACT #: [phone] Cecil Walter MD 09/04/2019 11:08 AM Signed ANESTHESIOLOGY DAY OF SURGERY NOTE SERVICE DATE: 09/04/2019 SERVICE TIME: 1100 : 1950 Procedure(s) (LRB): ERCP W/ BRUSHING (N/A) Surgeon(s): Pily Acevedo Estimated body mass index is 24.18 kg/m? as calculated from the following: Height as of this encounter: 172.7 cm (5' 8"). Weight as of this encounter: 72.1 kg [...] SURGICAL HISTORY Procedure Laterality Date - LAP CHOLECYSTECT/CHOLANGIOGRAPH Y 02-10-08 - UPPER ARM/ELBOW SURGERY UNLISTED Left [...] mg ORAL q 4 H PRN German (Izzy) DO Anthony - [MAR Hold due to Transfer] morphine 2 mg injection 2 mg INTRAVENOUS q 2 H PRN German (Res) Anthony, DO 2 mg at 09/03/192111 - [MAR Hold due to Transfer] NaCl 0.9% 3-5 mL 3-5 mL INTRAVENOUS q 12 H Pily Lui 3 mL at 09/04/19 0807 - [MAR [...] INTRAVENOUS CONTINUOUS Aijaz Kristina 75 mL/hr at 09/02/192099 75 mL/hr at [...] within 48 hours of Surgery/Procedure. SIGNATURE: Cecil Waltre MD PATIENT NAME: Moustapha Vasquez DATE: September 04, 2019 TIME: 10:57 AM CSN: [id number] Luna SOOD), YOEL 09/04/2019 11:22 AM Signed PRE OP LEARNING ASSESSMENT PROCEDURE/SURGERY: SURGERY: ercp READINESS TO LEARN COGNITIVE ABILITY: Alert and oriented MOTIVATION TO LEARN: Interested FAMILY SUPPORT: None - Unavailable/disinterested PATIENT LEARNS BEST BY: Individual Instruction Verbal Instruction FACTORS AFFECTING LEARNING: None PHYSICAL LIMITATIONS AFFECTING LEARNING: None Electronically Signed By: Luna Olivas (RN) In Department: [place] SURGERY OR Normal [facility] Hemogram/Diffon 09-02-2019 Abs Immature Grans 0.01 thou/cmm Normal 0.00-0.05 [facility] Comment on above: Performed By: #### C BCD1 #### [place] [address] Abs Neut (ANC) 4.19 thou/cmm Normal 1.78-5.38 [facility] Comment on above: Performed By: #### C BCD1 #### [place] [address] Abs. Baso 0.05 thou/cmm Normal 0.01-0.08 [facility] Comment on above: Performed By: #### C BCD1 #### [place] [address] Abs. [place] 0.55 thou/cmm Normal 0.30-0.82 [facility] Comment on above: Performed By: #### C BCD1 #### [place] [address] Basophils/100 WBC (Bld) 0.9 % Normal [facility] Comment on above: Performed By: #### C BCD1 #### [place] [address] Eosinophils (Bld) [#/Vol] 0.31 thou/cmm Normal 0.04-0.54 [facility] Comment on above: Performed By: #### C BCD1 #### [place] [address] Eosinophils/100 WBC (Bld) 5.3 % Normal [facility] Comment on above: Performed By: #### C BCD1 #### [place] [address] Erythrocyte distribution width (RBC) [Ratio] 13.9 % Normal 11.6-14.4 [facility] Comment on above: Performed By: #### C BCD1 #### [facility] [address] [place] [address] Hematocrit (Bld) [Volume fraction] 37.5 % Low 40.1-51.0 [facility] Comment on above: Performed By: #### C BCD1 #### [facility] [address] [place] [address] Hemoglobin (Bld) [Mass/Vol] 12.7 g/dL Low 13.7-17.5 [facility] Comment on above: Performed By: #### C BCD1 #### [facility] [address] [place] [address] Immature Grans 0.20 % Normal [facility] Comment on above: Performed By: #### C BCD1 #### [place] [address] Lymphocytes (Bld) [#/Vol] 0.70 thou/cmm Low 0.84-2.85 [facility] Comment on above: Performed By: #### C BCD1 #### [facility] [address] [place] [address] Lymphocytes/100 WBC (Bld) 12.0 % Normal [facility] Comment on above: Performed By: #### C BCD1 #### [facility] [address] [place] [address] MCH (RBC) [Entitic mass] 33.7 pg High 25.7-32.2 [facility] Comment on above: Performed By: #### C BCD1 #### [facility] [address] [place] [address] MCHC (RBC) [Mass/Vol] 33.9 % Normal 32.3-36.5 [facility] Comment on above: Performed By: #### C BCD1 #### [facility] [address] [place] [address] MCV (RBC) [Entitic vol] 99.5 fL High 83.2-95.6 [facility] Comment on above: Performed By: #### C BCD1 #### [facility] [address] [place], [place] [address] Monocytes/100 WBC (Bld) 9.5 % Normal [facility] Comment on above: Performed By: #### C BCD1 #### [facility] [address] [place], [place] [address] Platelet mean volume (Bld) [Entitic vol] 9.2 fL Normal 8.7-12.0 [facility] Comment on above: Performed By: #### C BCD1 #### [facility] [address] [place] [address] Platelets (Bld) [#/Vol] 360 thou/cmm Normal 141-365 [facility] Comment on above: Performed By: #### C BCD1 #### [facility] [address] [place] [address] RBC (Bld) [#/Vol] 3.77 mil/cmm Low 4.63-6.08 [facility] Comment on above: Performed By: #### C BCD1 #### [facility] [address] [place] [address] RDW SD 50.8 fl High 36.1-45.8 [facility] Comment on above: Performed By: #### C BCD1 #### [facility] [address] [place] [address] Seg Neutrophil 72.1 % Normal [facility] Comment on above: Performed By: #### C BCD1 #### [facility] [address] [place] [address] WBC (Bld) [#/Vol] 5.81 thou/cmm Normal 4.23-9.07 [facility] Comment on above: Performed By: #### C BCD1 #### [facility] [address] [place] [address] PLAN OF CAREon 09-02-2019 PLAN OF CARE HNO ID: [id number] Author: Nicole Kwok (Jewelry Drilling Machine Operator) Service: ? Author Type: ? Type: Plan of Care Filed: 09/02/2019 4:34 PM Note Text: LINUX NETWORK ENGINEER BEDSIDE DELIVERY SURVEY 1. Patient to use [facility] Bedside Delivery - YES Insurance Information as follows: 2. Insurance card on file - NO 3. Credit card for payment - N/A Patient elected to use bedside delivery. No prescriptions currently written. Please call pharmacy bedside delivery at [phone] or [phone] when patient has discharge orders and prescriptions are ready to be filled and delivered prior to discharge. Thank you. Nicole Kwok (Jewelry Drilling Machine Operator) Normal [facility] Protimeon 09-02-2019 INR Coag (PPP) [Relative time] 1.32 {INR} High 0.90-1.30 [facility] Comment on above: Result Comment: Lela min K Antagonist (VKA) Therapeutic Range: INR 2 to 3 (Target INR of 2.5) Note: For patients treated with VKA drugs, such as warfarin, the [place] [employer] 2012 Guideline recommends [...] GH, et al. Chest 2012; 141:7S-47S Amrik HOFFMAN et al. JAC 2017; 70: 252-289 Performed By: #### P T #### [address] [address] PT Coag (PPP) [Time] 14.2 s High 9.7-13.0 [facility] Comment on above: Performed By: #### P T #### [address] [address] Vital Signs Date Time Vital Sign Value Performing Clinician Hernesto jewell 12-18-2024 10:35-0400 Body height 172.[address] Anjelica Mendoza MD Work Phone: [facility] 12-18-2024 10:35-0400 Body mass index (BMI) [Ratio] 19.2 kg/m2 Dr. Anjelica Mendoza MD Work Phone: [facility] 12-18-2024 10:35-0400 Body temperature 98.4 [degF] Dr. Anjelica Mendoza MD Work Phone: [facility] 12-18-2024 10:35-0400 Body weight 57.[address] Anjelica Mendoza MD Work Phone: [facility] 12-18-2024 10:35-0400 Diastolic blood pressure 73 mm[Hg] Dr. Anjelica Mendoza MD Work Phone: [facility] 12-18-2024 10:35-0400 Heart rate 69 /min Dr. Anjelica Mendoza MD Work Phone: [facility] 12-18-2024 10:35-0400 Respiratory rate 16 /min Dr. Anjelica Mendoza MD Work Phone: [facility] 12-18-2024 10:35-0400 SaO2% (BldA) [Mass fraction] 98 % Dr. Anjelica Mendoza MD Work Phone: [facility] 12-18-2024 10:35-0400 Systolic blood pressure 119 mm[Hg] Dr. Anjelica Mendoza MD Work Phone: [facility] 10-29-2024 11:11-0400 Body height 172.[address] Anjelica Mendoza MD Work Phone: [facility] 10-29-2024 11:11-0400 Body mass index (BMI) [Ratio] 20 kg/m2 Dr. Anjelica Mendoza MD Work Phone: [facility] 10-29-2024 11:11-0400 Body temperature 98.6 [degF] Dr. Anjelica Mendoza MD Work Phone: [facility] 10-29-2024 11:11-0400 Body weight 59.[address] Anjelica Mendoza MD Work Phone: [facility] 10-29-2024 11:11-0400 Diastolic blood pressure 58 mm[Hg] Dr. Anjelica Mendoza MD Work Phone: [facility] 10-29-2024 11:11-0400 Heart rate 72 /min Dr. Anjelica Mendoza MD Work Phone: [facility] 10-29-2024 11:11-0400 Respiratory rate 16 /min Dr. Anjelica Mendoza MD Work Phone: [facility] 10-29-2024 11:11-0400 SaO2% (BldA) [Mass fraction] 97 % Dr. Anjelica Mendoza MD Work Phone: [facility] 10-29-2024 11:11-0400 Systolic blood pressure 98 mm[Hg] Dr. Anjelica Mendoza MD Work Phone: [facility] 07-21-2024 10:06-0400 Body mass index (BMI) [Ratio] 19.6 kg/m2 Dr. Anjelica Mendoza MD Work Phone: [facility] 07-21-2024 10:06-0400 Body temperature 98.2 [degF] Dr. Anjelica Mendoza MD Work Phone: [facility] 07-21-2024 10:06-0400 Body weight 58.[address] Anjelica Mendoza MD Work Phone: [facility] 07-21-2024 10:06-0400 Diastolic blood pressure 73 mm[Hg] Dr. Anjelica Mendoza MD Work Phone: [facility] 07-21-2024 10:06-0400 Heart rate 65 /min Dr. Anjelica Mendoza MD Work Phone: [facility] 07-21-2024 10:06-0400 Respiratory rate 16 /min Dr. Anjelica Mendoza MD Work Phone: [facility] 07-21-2024 10:06-0400 SaO2% (BldA) [Mass fraction] 98 % Dr. Anjelica Mendoza MD Work Phone: [facility] 07-21-2024 10:06-0400 Systolic blood pressure 120 mm[Hg] Dr. Anjelica Mendoza MD Work Phone: [facility] 07-10-2024 12:34-0400 Body temperature 98 [degF] Dr. Anjelica Mendoza MD Work Phone: [facility] 07-10-2024 12:34-0400 Diastolic blood pressure 60 mm[Hg] Dr. Anjelica Mendoza MD Work Phone: [facility] 07-10-2024 12:34-0400 Heart rate 61 /min Dr. Anjelica Mendoza MD Work Phone: [facility] 07-10-2024 12:34-0400 SaO2% (BldA) [Mass fraction] 96 % Dr. Anjelica Mendoza MD Work Phone: [facility] 07-10-2024 12:34-0400 Systolic blood pressure 98 mm[Hg] Dr. Anjelica Mendoza MD Work Phone: [facility] 03-27-2024 10:19-0500 Body height 172.[address] Anjelica Mendoza MD Work Phone: [facility] 03-27-2024 10:19-0500 Body mass index (BMI) [Ratio] 20.9 kg/m2 Dr. Anjelica Mendoza MD Work Phone: [facility] 03-27-2024 10:19-0500 Body temperature 98.6 [degF] Dr. Anjelica Mendoza MD Work Phone: [facility] 03-27-2024 10:19-0500 Body weight 62.[address] Anjelica Mendoza MD Work Phone: [facility] 03-27-2024 10:19-0500 Diastolic blood pressure 62 mm[Hg] Dr. Anjelica Mendoza MD Work Phone: [facility] 03-27-2024 10:19-0500 Heart rate 77 /min Dr. Anjelica Mendoza MD Work Phone: [facility] 03-27-2024 10:19-0500 Respiratory rate 16 /min Dr. Anjelica Mendoza MD Work Phone: [facility] 03-27-2024 10:19-0500 SaO2% (BldA) [Mass fraction] 97 % Dr. Anjelica Mendoza MD Work Phone: [facility] 03-27-2024 10:19-0500 Systolic blood pressure 117 mm[Hg] Dr. Anjelica Mendoza MD Work Phone: [facility] 06-15-2023 21:16-0500 Body height 172.72 cm [facility] 06-15-2023 21:16-0500 Body mass index (BMI) [Ratio] 20.5 kg/m2 [facility] 06-15-2023 21:16-0500 Body temperature 97.2 [degF] [facility] 06-15-2023 21:16-0500 Body weight 61.23 kg [facility] 06-15-2023 21:16-0500 Diastolic blood pressure 83 mm[Hg] [facility] 06-15-2023 21:16-0500 Heart rate 77 /min [facility] 06-15-2023 21:16-0500 Respiratory rate 16 /min [facility] 06-15-2023 21:16-0500 SaO2% (BldA) [Mass fraction] 100 % [facility] 06-15-2023 21:16-0500 Systolic blood pressure 144 mm[Hg] [facility] 05-08-2022 13:41-0500 Body temperature 97.2 [degF] Dr. Anjelica Mendoza Work Phone: [facility] 05-08-2022 13:41-0500 Body weight 62.[address] Anjelica Mendoza Work Phone: [facility] 05-08-2022 13:41-0500 Diastolic blood pressure 75 mm[Hg] Dr. Anjelica Mendoza Work Phone: [facility] 05-08-2022 13:41-0500 Heart rate 58 /min Dr. Anjelica Mendoza Work Phone: [facility] 05-08-2022 13:41-0500 Respiratory rate 16 /min Dr. Anjelica Mendoza Work Phone: [facility] 05-08-2022 13:41-0500 SaO2% (BldA) [Mass fraction] 98 % Dr. Anjelica Mendoza Work Phone: [facility] 05-08-2022 13:41-0500 Systolic blood pressure 135 mm[Hg] Dr. Anjelica Mendoza Work Phone: [facility] 04-27-2022 12:49-0500 Body temperature 98.1 [degF] Dr. Anjelica Mendoza Work Phone: [facility] 04-27-2022 12:49-0500 Diastolic blood pressure 70 mm[Hg] Dr. Anjelica Mendoza Work Phone: [facility] 04-27-2022 12:49-0500 Heart rate 60 /min Dr. Anjelica Mendoza Work Phone: [facility] 04-27-2022 12:49-0500 Respiratory rate 14 /min Dr. Anjelica Mendoza Work Phone: [facility] 04-27-2022 12:49-0500 SaO2% (BldA) [Mass fraction] 100 % Dr. Anjelica Mendoza Work Phone: [facility] 04-27-2022 12:49-0500 Systolic blood pressure 122 mm[Hg] Dr. Anjelica Mendoza Work Phone: [facility] 04-27-2022 12:35-0500 Body mass index (BMI) [Ratio] 20.7 kg/m2 Dr. Anjelica Mendoza Work Phone: [facility] 04-26-2022 13:09-0500 Body height 172.[address] Anjelica Mendoza Work Phone: [facility] 04-26-2022 13:09-0500 Body weight [address] Anjelica Mendoza Work Phone: [facility] 04-26-2022 12:34-0500 Body temperature 96.6 [degF] [facility] Work Phone: 04-26-2022 12:34-0500 Diastolic blood pressure 83 mm[Hg] [facility] Work Phone: 04-26-2022 12:34-0500 Heart rate 61 /min [facility] Work Phone: 04-26-2022 12:34-0500 Respiratory rate 14 /min [facility] Work Phone: 04-26-2022 12:34-0500 SaO2% (BldA) [Mass fraction] 99 % [facility] Work Phone: 04-26-2022 12:34-0500 Systolic blood pressure 145 mm[Hg] [facility] Work Phone: 04-26-2022 11:04-0500 Body height 172.72 cm [facility] Work Phone: 04-26-2022 11:04-0500 Body mass index (BMI) [Ratio] 22.6 kg/m2 [facility] Work Phone: 04-26-2022 11:04-0500 Body weight 67.4 kg [facility] Work Phone: 09-26-2021 13:17-0400 Body height 172.[address] Anjelica Mendoza Work Phone: [facility] Work Phone: 09-26-2021 13:17-0400 Body mass index (BMI) [Ratio] 20.9 kg/m2 Dr. Anjelica Mendoza Work Phone: [facility] Work Phone: 09-26-2021 13:17-0400 Body temperature 97.8 [degF] Dr. Anjelica Mendoza Work Phone: [facility] Work Phone: 09-26-2021 13:17-0400 Body weight 62.[address] Anjelica Mendoza Work Phone: [facility] Work Phone: 09-26-2021 13:17-0400 Diastolic blood pressure 66 mm[Hg] Dr. Anjelica Mendoza Work Phone: [facility] Work Phone: 09-26-2021 13:17-0400 Heart rate 65 /min Dr. Anjelica Mendoza Work Phone: [facility] Work Phone: 09-26-2021 13:17-0400 Respiratory rate 16 /min Dr. Anjelica Mendoza Work Phone: [facility] Work Phone: 09-26-2021 13:17-0400 SaO2% (BldA) [Mass fraction] 99 % Dr. Anjelica Mendoza Work Phone: [facility] Work Phone: 09-26-2021 13:17-0400 Systolic blood pressure 118 mm[Hg] Dr. Anjelica Mendoza Work Phone: [facility] Work Phone: 09-26-2021 13:17-0400 Body height 172.[address] Anjelica Mendoza Work Phone: [facility] Work Phone: 09-26-2021 13:17-0400 Body mass index (BMI) [Ratio] 20.9 kg/m2 Dr. Anjelica Mendoza Work Phone: [facility] Work Phone: 09-26-2021 13:17-0400 Body temperature 97.8 [degF] Dr. Anjelica Mendoza Work Phone: [facility] Work Phone: 09-26-2021 13:17-0400 Body weight 62.[address] Anjelica Mendoza Work Phone: [facility] Work Phone: 09-26-2021 13:17-0400 Diastolic blood pressure 66 mm[Hg] Dr. Anjelica Mendoza Work Phone: [facility] [facility] Work Phone: 09-26-2021 13:17-0400 Heart rate 65 /min Dr. Anjelica Mendoza Work Phone: [facility] Work Phone: 09-26-2021 13:17-0400 Respiratory rate 16 /min Dr. Anjelica Mendoza Work Phone: [facility] Work Phone: 09-26-2021 13:17-0400 SaO2% (BldA) [Mass fraction] 99 % Dr. Anjelica Mendoza Work Phone: [facility] Work Phone: 09-26-2021 13:17-0400 Systolic blood pressure 118 mm[Hg] Dr. Anjelica Mendoza Work Phone: [facility] Work Phone: Encounters Encounter Date Encounter Type Care Provider Facility Start: 02-11-2025 ambulatory Anjelica Mendoza Facility :[facility] Start: 12-18-2024 End: 12-18-[address] Anjelica Mendoza MD -[facility] Work Phone: Start: 12-18-2024 End: 12-18-[address] Anjelica Mendoza MD Work Phone: -[facility] Start: 12-05-2024 End: 12-05-[address] Anjelica Mendoza MD Work Phone: -Laboratory Start: 12-05-2024 End: 12-05-[address] Anjelica Mendoza MD -Laboratory Work Phone: Start: 12-04-2024 End: 12-05-[address] Anjelica Mendoza MD Work Phone: -[facility] Start: 12-04-2024 End: 12-04-[address] Anjelica Mendoza MD -[facility] Work Phone: Start: 12-04-2024 End: 12-04-2024 ambulatory Anjelica Mendoza Facility:[facility] Start: 10-29-2024 End: 10-29-[address] Anjelica Mendoza MD Work Phone: -Laboratory Start: 10-29-2024 End: 10-29-[address] Anjelica Mendoza MD -Laboratory Work Phone: Start: 10-29-2024 End: 10-29-[address] Anjelica Menodza MD -[facility] Work Phone: Start: 10-29-2024 End: 10-29-[address] Anjelica Mendoza MD Work Phone: -[facility] Start: 10-29-2024 End: 10-29-2024 ambulatory Anjelica Mendoza Facility:[facility] Start: 07-21-2024 End: 07-21-[address] Anjelica Mendoza MD -[facility] Work Phone: Start: 07-21-2024 End: 07-21-2024 ambulatory Anjelica Mendoza Facility:[facility] Start: 07-10-2024 End: 07-10-2024 Patient encounter procedure Arsen SINGER -[facility] Work Phone: Start: 07-10-2024 End: 07-10-[address] Anjelica Mendoza MD Work Phone: [facility] Work Phone: Start: 07-10-2024 End: 07-10-2024 ambulatory Anjelica Mendoza Facility:[facility] Start: 04-01-2024 End: 04-01-[address] Anjelica Mendoza MD -Laboratory Work Phone: Start: 04-01-2024 End: 04-01-2024 ambulatory Anjelica Mendoza Facility:[facility] Start: 03-27-2024 End: 03-27-[address] Anjelica Mendoza MD -[facility] Work Phone: Start: 03-27-2024 End: 03-27-2024 ambulatory Anjelica Mendoza Facility:[facility] Start: 03-27-2024 End: 03-27-2024 ambulatory Anjelicaigor Mendoza Facility:[facility] Start: 06-15-2023 End: 06-15-2023 Emergency department patient visit [facility] Work Phone: Start: 05-09-2023 End: 05-09-2023 ambulatory [facility] Work Phone: Start: 05-09-2023 End: 05-09-2023 Patient encounter procedure [facility] Work Phone: Start: 09-12-2022 End: 09-12-2022 ambulatory [facility] Work Phone: Start: 09-12-2022 End: 09-12-2022 Patient encounter procedure [facility] Start: 07-17-2022 End: 07-17-[address] Anjelica Mendoza Work Phone: [facility] Work Phone: Start: 07-17-2022 End: 07-17-[address] Anjelica Mendoza Work Phone: [facility] Start: 06-29-2022 End: 06-29-[address] [facility] Start: 05-08-2022 End: 05-08-[address] Anjelica Mendoza Work Phone: [facility] Work Phone: Start: 05-08-2022 End: 05-08-[address] [facility] Start: 05-08-2022 End: 05-08-[address] Anjelica Mendoza Work Phone: [facility] Start: 04-27-2022 Non-patient / Non-visit Dr. Margarita Mendoza Work Phone: [facility] Start: 04-27-2022 Non-patient / Non-visit Dr. Margarita Mendoza Work Phone: [facility] Start: 04-26-2022 Non-patient / Non-visit Dr. Margarita Mendoza Work Phone: [facility] Start: 04-26-2022 End: 04-27-2022 Evaluation and management of inpatient Dr. Anjelica Mendoza [facility] Start: 04-26-2022 [facility] Start: 10-07-2021 End: 10-07-[address] Anjelica Mendoza Work Phone: [facility] Start: 10-05-2021 End: 10-05-[address] Anjel[facility] Mendoza [facility] Start: 09-26-2021 End: 09-26-[address] Anjelica Mendoza [facility] Start: 09-26-2021 End: 09-26-[address] Anjelica Mendoza Work Phone: [facility] Start: 06-09-2020 Encounter for genera l adult medical examination without abnormal findings SHANNON [facility] Start: 06-09-2020 End: 06-12-2020 Patient encounter procedure SHANNON AGUERO [facility] Start: 08-15-2019 Patient encounter procedure SURESH CRUM Facility:[facility] Encounter for genera l adult medical examination without abnormal findings [facility] Procedures Date Procedure Procedure Detail Performing Clinician Start: 12-04-2024 MRI of cervical spine Raheem Mendoza MD Work Phone: Start: 12-04-2024 MRI of thoracic spine Raheem Mendoza MD Work Phone: Start: 10-29-2024 X-ray of thoracic sp ine, [...] spine, three views Thoracic Spine 3 Views [facility] Start: 10-29-2024 XR Thoracic spine 3 Views [facility] Start: 10-29-2024 CBC W Auto Differential panel - Blood [facility] Start: 10-29-2024 Comprehensive metabolic 2000 panel - Serum or Plasma [facility] Start: 10-29-2024 Magnesium measurement [facility] Start: 10-29-2024 Triacylglycerol lipase measurement [facility] Start: 06-15-2023 [facility] Start: 04-27-2022 Patient discharge [facility] Start: 04-26-2022 Ambulation without limitation [facility] Start: 04-26-2022 Assessment of risk of venous thromboembolism [facility] Start: 04-26-2022 Insertion of catheter into peripheral vein [facility] Start: 04-26-2022 Measuring intake and output [facility] Start: 04-26-2022 Providing care according to standard [facility] Start: 04-26-2022 Referral to occupational therapist [facility] Start: 04-26-2022 Referral to service [facility] Start: 04-26-2022 [facility] Start: 04-26-2022 Admission procedure [facility] Start: 04-26-2022 Following clinical pathway protocol [facility] Start: 04-26-2022 Oxygen therapy [facility] Start: 04-26-2022 End: 04-26-2022 [facility] Work Phone: Alanine aminotransfe rase [Enzymatic activity/volume] in Serum or Plasma [facility] Albumin [Mass/volume ] in Serum or Plasma [facility] Alkaline phosphatase [Enzymatic activity/volume] in Serum or Plasma [facility] Anion gap in Serum or Plasma [facility] Bilirubin, total measurement [facility] BUN/Creatinine ratio [facility] Calcium [Mass/volume ] in Serum or Plasma [facility] Carbon dioxide, tota l [Moles/volume] in Central venous blood [facility] Creatinine [Mass/vol ume] in Serum or Plasma [facility] Glucose [Mass/volume ] in Serum or Plasma [facility] Measurement of renal function [facility] Patient Education ED Myalgias ED Muscle Strain, Extremity [facility] Work Phone: Patient referral [facility] Work Phone: Potassium measurement [facility] Serum chloride measurement [facility] Sodium measurement [facility] Total protein measurement [facility] Urea nitrogen [Mass/ volume] in Serum or Plasma [facility] Payers Date Payer Category Payer Self-pay [id number] 2024 Medicare [id number] 2019 Unknown [id number] 1950 Unknown [id number] 2.16. [id number] 1950 Unknown [id number] 2.16.84 [id number] Medicare [id number] Unknown [id number] Unknown [id number] 2.16.8 [id number] Unknown [id number] 2.16.8 [id number] Unknown [id number] 2.16.8 [id number] Unknown [id number] 2.16.8 [id number] Unknown [id number] 2.16.8 [id number] Unknown [id number] 2.16.8 [id number] Unknown [id number] 2.16.8 [id number] Unknown [id number] 2.16.8 [id number] Unknown [id number] 2.16.8 [id number] Unknown [id number] 2.16.8 [id number] Unknown [id number] 2.16.8 [id number] Unknown [id number] 2.16.8 [id number] Social History Date Type Detail Facility Start: 09-26-2021 End: 06-15-2023 Tobacco smoking status OKIS Unknown if ever smoked [facility] Start: 06-18-2019 Occasional [facility] Start: 06-18-2019 None [facility] Start: 06-18-2019 Alone [facility] Start: 01-19-2020 Non-smoker [facility] Start: 1950 Sex Assigned At Male [facility] Start: 06-15-2023 Tobacco smoking stat [facility] Never smoked tobacco (finding) [facility] Start: 07-18-2024 Sex Male (finding) [facility] Medical Equipment Procedure Code Equipment Code Equipment [...] Facility 04-27-2022 Functional status Ambulates;Up ad louisa [facility] Work Phone: Mental Status Date Assessment Result Facility 04-27-2022 Cognitive function Voice/Name [facility] Work Phone: Clinical Notes 03-27-2024 to 10-30-2024 Note Date & Type Note Facility 10-30-2024 Radiology Diagnostic study note [facility] Imaging Services [address] [place] [address] Thoracic Spine 3 Views MR#: [id number] Acct: [id number] Name: MOUSTAPHA VASQUEZ Rep #: [id number] : [id number] M 74 From: Nito Franks MD PCP: Dr. Anjelica Mendoza MD Status: REG CLI Study:Thoracic Spine 3 Views Date of Exam: 10/29/24 Exam# [id number] Ordering Dr: Anjelica Mendoza MD PROCEDURE: THORACIC [...] Thoracic spondylosis. No acute fracture. Reading Location: [facility] CC: Dr. Anjelica Mendoza MD ~ Street Supervisor: Signed [facility] 10-29-2024 Evaluation note Diagnosis Onset Date Resolution Easy fatigability acute October 11:02am Loose stools acute October 29 11:02am Thoracic back pain acute October 292024 11:02am Pancreatic adenocarcinoma chronic October 29, 2024 11:02am [facility] Work Phone: 1(240) 131-688903-20-2025 Evaluation note* Diagnosis Onset Date Resolution Status Admit Date Influenza due to influenza virus, type A, human acute July 10, 2024 12:33pm Dry mouth acute July 21 9:58am Hypokalemia acute July 21, 025 9:58am Pancreatic adenocarcinoma chronic July 21, 2024 9:58am TIA (transient ischemic attack) [facility] July 21, 2024 9:58am [facility] Work Phone: 1(813) 217-812503-20-2025 Evaluation note* Diagnosis Onset Date Resolution Status Admit Date Influenza due to influenza virus, type A, human acute July 10, 2024 12:33pm Dry mouth acute July 21 9:58am Hypokalemia acute July 21, 2 025 9:58am Pancreatic adenocarcinoma chronic July 21, 2024 9:58am TIA (transient ischemic attack) [facility] July 21, 2024 9:58am Easy fatigability acute October 11:02am Loose stools acute October 29 11:02am Thoracic back pain acute October 292024 11:02am Pancreatic adenocarcinoma chronic October 29, 2024 11:02am [facility] Work Phone: 1(143) 255-211203-20-2025 Radiology Diagnostic study note [facility] Imaging Services [address] [place] [address] Chest PA and Lateral MR#: [id number] Acct: [id number] Name: MOUSTAPHA VASQUEZ Rep #: [id number] : 1950 M 74 From: Natalee Rasmussen MD PCP: Dr. Anjelica Mendoza MD Status: REG CLI Study:Chest PA and Lateral Date of Exam: 07/10/24 Exam# [id number] Ordering Dr: Kell Delcid PA PA PROCEDURE: [...] 2. Additional description as above. Reading Location: [id number] CC: LUCRECIA Prieto; Dr. Anjelica Mendoza MD ~ Street Supervisor: Signed [facility]12-05-2024 Evaluation note* Diagnosis Onset Date Resolution Status Admit Date Hypokalemia acute March 27, 2024 10:09am Hyponatremia acute March 10:09am Nausea acute March 27, 2024 10:09am whipple surgery acute March 27, 2024 10:09am Malnutrition following gastrointestinal surgery chronic Decembe 2023 10:09am Pancreatic adenocarcinoma chronic March 27, 2024 10:09am Influenza due to influenza virus, type A, human acute July 10, 2024 12:33pm [facility] Work Phone: Evaluation note* Diagnosis Onset Date Resolution Status Loose stools acute Malnutrition following gastrointestinal surgery chronic Pancreatic adenocarcinoma ch ronic [facility] Work Phone: Evaluation note* Diagnosis Onset Date Resolution Status Brain TIA acute Hyperglycemia acute Hypokalemia acute [facility] Work Phone: Evaluation note* Diagnosis Onset Date Resolution Status Hypokalemia acute Malnutrition following gastrointestinal surgery chronic Pancreatic adenocarcinoma ch ronic TIA (transient ischemic attack) chronic [facility] Work Phone: Evaluation noteNo assessment information available [facility] Work Phone: Hospital Discharge instructions Additional Instructions Your ultrasound showed no sign of DVT/blood clot and on exam there is no sign of infection. Follow-up with your family doctor for repeat evaluation return to the ER should [facility] have any [facility] Work Phone: Reason for referral (narrative)No reason for referral information [facility] Work Phone: Summary Purpose Family History [...] September 07, 2020 1 :18pm Power of Pastry Wrapper Yes September 07, 2020 1:18pm Advance Directive Response Recorded Date/ Time Advance Directives No September 07 1 12:18pm Living Will No April 26 3 11:04am Power of Pastry Wrapper No April 26, 2 023 11:04am Advance Directive Response Recorded Date/ Time Advance Directives No September 07 1 12:18pm Living Will No April 26 3 1:09pm Power of Pastry Wrapper No April 26, 2 023 1:09pm Advance Directive Response Recorded Date/ Time Advance Directives No September 07 1 1:18pm Living Will No April 26 3 2:09pm Power of Pastry Wrapper No April 26, 2 023 2:09pm Advance Directive Response Recorded Date/ Time Name of Medical Power of Pastry Wrapper lester vasquez June 15, 2023 11:05pm Advance Directives No September 07 1 12:18pm Living Will Yes June 15, 2 024 11:05pm Power of Pastry Wrapper Yes June 15, 2023 11:05pm Advance Directive Response Recorded Date/ Time Advance Directives No September 07 1 1:18pm Hospital Course Note HNO ID: [id number] Author: Toby Walker DO Service: General Surgery Author Type: Resident Type: Discharge Summary Filed: 09/07/2019 11:39 AM Note Text: Attestation signed by Navenet Benavides at 09/07/2019 11:47 AM I personally [...] Complaint TIA, HYPOKALEMIA TIA, HYPOKALEMIA TIA, HYPOKALEMIA [facility] ER FU EORDER Reason for Visit Hypokalemia Malnutrition following gastrointestinal surgery Pancreatic adenocarcinoma TIA (transient ischemic attack) Chief Complaint TIA, HYPOKALEMIA TIA, HYPOKALEMIA TIA, HYPOKALEMIA [facility] ER FU EORDER INT LABS [...] am Pancreatic adenocarcinoma October 29, 2024 11:02am Chief Complaint Admit Date BACK PAIN, FATIGUE October 29, 2024 11:02 am E-ORDER October 29, 2024 12:19 pm Pain in thoracic spine December 04, 2024 1:18pm Reason for Visit Admit Date Easy fatigability October 29, 2024 11:02 am Loose stools October 29, 2024 11:02 am Thoracic back pain October 29, 2024 11:02 am Pancreatic adenocarcinoma October 29, 2024 11:02am Chief Complaint Admit Date BACK PAIN, FATIGUE October 29, 2024 11:02 am E-ORDER October 29, 2024 12:19 pm Pain in thoracic spine December 04, 2024 1:18pm 2 WK FU December 18, 2024 10 :29am Additional Source Comments (unrecognized sect ion and content) No Status Records FoundNo Status Records FoundNo Status Records FoundNo Status Records FoundNo Status Records Found INFORMATION SOURCE (unrecogn ized section and content) DATE CREATED AUTHOR 08/15/2019 [facility] DATE CREATED AUTHOR AUTHOR'S ORGANIZ ATION 09/19/2019 [facility] DATE CREATED AUTHOR AUTHOR'S ORGANIZ ATION 09/22/2019 [facility] DATE CREATED AUTHOR AUTHOR'S ORGANIZ ATION 06/21/2020 [facility] DATE CREATED AUTHOR AUTHOR'S ORGANIZ ATION 01/14/2025 [facility] Goals (unrecognized section and content) Goals [...] Anjelica Mendoza MD Primary Care Provider, Attendi Provider Active Team Status: Inactive Member Role [...] 10, 2024 End: July 10, 2024 Arsen Bhavin PA, PA Referring Provider Active Sta rt: July [...] 2024 End: October 29, 2024 Team Status: Inactive Member Role/Relationship Status Dates Dr. Anjelica Mendoza MD Primary Care Provider Active Start: October 29, 2024 End: October 29, 2024 Dr. Anjelica Mendoza MD Attending Provider Active Start: October 29, 2024 End: October 29, 2024 Dr. Anjelica Mendoza MD Referring Provider Active Start: October 29, 2024 End: October 29, 2024 Team Status: Inactive Member Role/Relationship Status Dates Dr. Anjelica Mendoza MD Primary Care Provider Active Start: December 04, 2024 End: December 04, 2024 Dr. Anjelica Mendoza MD Attending Provider Active Start: December 04, 2024 End: December 04, 2024 Dr. Anjelica Mendoza MD Referring Provider Active Start: December 04, 2024 End: December 04, 2024 Team Status: Active Member Role/Relationship Status Dates Dr. Anjelica Mendoza MD Primary Care Provider Active Start: December 05, 2024 Dr. Anjelica Mendoza MD Attending Provider Active Start: December 05, 2024 Dr. Anjelica Mendoza MD Referring Provider Active Start: December 05, 2024 Team Status: Inactive Member Role/Relationship Status Dates Dr. Anjelica Mendoza MD Primary Care Provider Active Start: December 05, 2024 End: December 05, 2024 Dr. Anjelica Mendoza MD Attending Provider Active Start: December 05, 2024 End: December 05, 2024 Dr. Anjelica Mendoza MD Referring Provider Active Start: December 05, 2024 End: December 05, 2024 Team Status: Inactive Member Role/Relationship Status Dates Dr. Anjelica Mendoza MD Primary Care Provider Active Start: December 18, 2024 End: December 18, 2024 Dr. Anjelica Mendoza MD Attending Provider Active Start: December 18, 2024 End: December 18, 2024 FOR RECORDS PERTAINING TO PATIENTS WHO [...] BE BASED ON THE PRIMARY CLINICAL RECORDS. [facility] [employer] [facility]. provides no warranty or guarantee of the accuracy or completeness of information in this document.
[2025-01-15 17:50] VITALS: BP 139/90; PULSE 88; RESP 18; TEMP 36.8; O2SAT 99
--- NOTE | 2025-01-15 17:51 | ED.RN ---
postassium continues to infuse, occlussion frequently, infusion prolonged.
[2025-01-15 18:15] VITALS: BMI 15.5
[2025-01-15] MEDS: SUZETRIGINE 50 MG PO (18:44)
[2025-01-15] MEDS: 0.9% Normal Saline (1000mL) 1,000 ML 50 ML IV (18:46)
[2025-01-15 18:49] VITALS: BP 150/97; PULSE 90; RESP 18; TEMP 36.7; O2SAT 98
[2025-01-15 19:00] VITALS: PULSE 82
[2025-01-15 19:41] LABS: Anion Gap 12 (5-15); BUN 15 mg/dL (4-19); BUN/Creat Ratio 17.5 RATIO (10-20); Calcium,Total 7.7 mg/dL (7.6-11.0); Carbon Dioxide 22.7 mmol/L (21.0-32.0); Chloride 103 mmol/L (98-108); Estimated Creatinine Clearance 54.04 ml/min (50-250); Glucose 101 mg/dL (70-99); Potassium 2.5 mmol/L (3.3-5.1)
[2025-01-15 19:48] LABS: Magnesium 2.0 mg/dL (1.5-2.2)
--- NOTE | 2025-01-15 20:08 | PCM.HOSP.N ---
Hospitalist Note Notified by nrsg that pt is screaming at them for his dose of steroids. He has been on prednisone to treat pain from PMR. I reviewed the workload communication between him and Dr. Mendoza regarding plans to taper his prednisone from 40mg down to 20mg, and then continue the daily 20mg daily dose for a while. On assessment, he states that he was supposed to take his "second dose" of prednisone at noon but he was here at the hospital and "missed it." He states that he brought his "own pills to take" and is asking to take them, I advised that taking unlabeled pills is not allowed once admitted without proper identification. To this he began screaming at me, "Just give me my pills!" I advised him that screaming at staff or providers is not how we expedite care. Ordered prednisone 20mg PO x1 now for today's dose. Cautioned insomnia, palpitations at late hour ingestion of prednisone; he was not concerned with these.
[2025-01-15] MEDS: Potassium Chloride Oral Tablet 20 MEQ PO ×2 (20:17→20:56)
[2025-01-15] MEDS: Arthritis Pain Compound 60 CLICK TUBE TOPICAL (20:24)
[2025-01-15] MEDS: 0.9% Saline Lock 10 ML Syringe IV (20:58)
[2025-01-15 22:00] VITALS: BP 147/90; PULSE 91; RESP 16; TEMP 36.7; O2SAT 98
[2025-01-15 23:12] LABS: Anion Gap 13 (5-15); BUN 14 mg/dL (4-19); BUN/Creat Ratio 17.3 RATIO (10-20); Calcium,Total 7.3 mg/dL (7.6-11.0); Carbon Dioxide 17.3 mmol/L (21.0-32.0); Chloride 106 mmol/L (98-108); Estimated Creatinine Clearance 59.44 ml/min (50-250); Glucose 129 mg/dL (70-99); Potassium 3.4 mmol/L (3.3-5.1)
[2025-01-16] MEDS: Potassium Chloride 10mEq/100mL 10 MEQ/100 ML IV.SOLN. 100 MEQ IV BOLUS (01:00)
[2025-01-16 05:28] LABS: Hematocrit 28.0 % (40-54); Hemoglobin 9.4 g/dL (13.0-16.5); Immature Granulocytes Count 0.060 X10^3/uL (0.0-0.0); Mean Corp Hgb Conc 33.6 g/dL (32-36); Mean Corpuscular Volume 86.4 fL (80-94); Mean Platelet Vol. 10.1 fl (6.2-12.0); NRBC Flagged by Analyzer 0 % (0-5); POSITIVE DIFFERENTIAL YES; Platelet Count 185 K/mm3 (150-450); RBC Distribution Width CV 14.1 % (11.6-14.6); RBC Distribution Width SD 43.6 fl (35.1-43.9); Red Blood Count 3.24 M/mm3 (4.6-6.2); White Blood Count 8.0 K/mm3 (4.4-11.0)
[2025-01-16 06:18] LABS: Anion Gap 11 (5-15); BUN 16 mg/dL (4-19); BUN/Creat Ratio 20.7 RATIO (10-20); Calcium,Total 7.5 mg/dL (7.6-11.0); Carbon Dioxide 18.7 mmol/L (21.0-32.0); Chloride 107 mmol/L (98-108); Estimated Creatinine Clearance 59.44 ml/min (50-250); Glucose 137 mg/dL (70-99); Potassium 3.8 mmol/L (3.3-5.1)
[2025-01-16] MEDS: SUZETRIGINE 50 MG PO ×2 (09:18→20:36)
[2025-01-16 09:22] VITALS: BP 159/78; PULSE 89; RESP 18; TEMP 36.6; O2SAT 98
[2025-01-16] MEDS: Ensure Plus High Protein 120 ML LIQUID PO ×3 (09:31→16:47)
[2025-01-16] MEDS: Arthritis Pain Compound 60 CLICK TUBE TOPICAL ×2 (09:33→20:37)
[2025-01-16] MEDS: 0.9% Saline Lock 10 ML Syringe IV (09:38)
--- NOTE | 2025-01-16 10:19 | PN.HOSP_ITS ---
Reason for Visit Chief Complaint: Left hip pain Objective Data Objective Data Vital Signs: Vital Signs Temp Pulse Resp BP Pulse Ox O2 Del Method 97.9 F 89 18 159/78 H 98 Room Air 01/16/25 09:22 01/16/25 09:22 01/16/25 09:22 01/16/25 09:22 01/16/25 09:22 01/16/25 09:41 Oxygen Delivery Method Room Air Weight: 111 lb Body Mass Index (BMI) 15.5 Intake & Output: Intake and Output for Last 24 Hours 01/14/25 01/15/25 01/16/25 23:59 23:59 23:59 Intake Total 400 / 400 1000 / 1000 Output Total 900 / 900 Balance 400 / 200 100 / 100 Lab / Micro Data 01/16/25 05:10 01/16/25 05:10 Labs: Laboratory Results - last 24 hr 01/15/25 12:00: WBC 9.3, RBC 3.60 L, Hgb 10.6 L, Hct 31.4 L, MCV 87.2, MCH 29.4, MCHC 33.8, RDW Std Deviation 44.9 H, RDW Coeff of [place] 14.0, Plt Count 177, MPV 10.4, Immature Gran % (Auto) 1.200 H, Neut % (Auto) 91.7 H, Lymph % (Auto) 4.6 L , Antelope % (Auto) 2.1, Eos % (Auto) 0.3, Baso % (Auto) 0.1, Absolute Neuts (auto) 8.5 H, Absolute Lymphs (auto) 0.43 L, Nucleated RBC % 0, ESR 55 H, Sodium 137, P otassium 2.1 L*, Chloride 103, Carbon Dioxide 20.9 L, Anion Gap 12, BUN 17, Creatinine 0.90, Estim Creat Clear Calc 59.08, Est GFR (MDRD) Non-Af 91, BUN/Creatinine Ratio 19.0, Glucose 104 H, Calcium 7.9, C-React Prot Ext Range 93.30 H 01/15/25 18:42: Sodium 137, Potassium 2.5 L*, Chloride 103, Carbon Dioxide 22.7, Anion Gap 12, BUN 15, Creatinine 0.88, Estim Creat Clear Calc 54.04, Est GFR (MDRD) Non-Af 91, BUN/Creatinine Ratio 17.5, Glucose 101 H, Calcium 7.7, Magnesium 2.0 01/15/25 22:17: Sodium 135, Potassium 3.4, Chloride 106, Carbon Dioxide 17.3 L, Anion Gap 13, BUN 14, Creatinine 0.80, Estim Creat Clear Calc 59.44, Est GFR (MDRD) Non-Af 94, BUN/Creatinine Ratio 17.3, Glucose 129 H, Calcium 7.3 L 01/16/25 02:35: Sodium Cancelled, Potassium Cancelled, Chloride Cancelled, Carbon Dioxide Cancelled, Anion Gap Cancelled, BUN Cancelled, Creatinine Cancelled, Estim Creat Clear Calc Cancelled, Est GFR (MDRD) Non-Af Cancelled, BUN/Creatinine Ratio Cancelled, Glucose Cancelled, Calcium Cancelled 01/16/25 05:10: WBC 8.0, RBC 3.24 L, Hgb 9.4 L, Hct 28.0 L, MCV 86.4, MCH 29.0, MCHC 33.6, RDW Std Deviation 43.6, RDW Coeff of [place] 14.1, Plt Count 185, MPV 10.1, Immature Gran % (Auto) 0.700, Neut % (Auto) 93.8 H, Lymph % (Auto) 3.1 L, Antelope % (Auto) 2.4, Eos % (Auto) 0.0, Baso % (Auto) 0.0, Absolute Neuts (auto) 7.5, Absolute Lymphs (auto) 0.25 L, Nucleated RBC % 0, Sodium 136, Potassium 3.8, Chloride 107, Carbon Dioxide 18.7 L, Anion Gap 11, BUN 16, Creatinine 0.78, Estim Creat Clear Calc 59.44, Est GFR (MDRD) Non-Af 95, BUN/Creatinine Ratio 20.7 H, Glucose 137 H, Calcium 7.5 L Radiography Diagnostic Testing: Radiology Impression Hip/Pelvis X-Ray 01/15/25 13:50 IMPRESSION: No acute bony abnormalities. Reading Location: [facility] Lower Extremity CT 01/15/25 15:30 IMPRESSION: No acute or aggressive osseous abnormality. Nonspecific small hip joint effusion. Reading Location[facility] Physical Exam Narrative Patient stated he did not had diarrhea or acute symptoms before starting steroid for the back pain. Started on a steroid 2-1/2 weeks ago for hold for upper back pain shoulder pain and he lowered the dose he started having pain in the left hip, feeling cold and loose bowel movement. At 4 AM today complained of hurting left knee. Left hip is better. Physical exam General: Alert, Oriented x3, Cooperative HEENT: Atraumatic, PERRLA, EOMI, Normocephalic. Oral: No Gingival or Mucosal Lesions/ Ulcerations Neck: Supple, No JVD, Negative Carotid Bruits Chest wall/Lungs: Air entry diminished in bilateral lung bases. No crepitation/rhonchi Cardiovascular: Regular rate and rhythm, Normal S1,S2, No M/G/R Abdomen: Bowel Sounds Present, Soft, Non Tender, Non-Distended : No dysuria. No renal angle tenderness. No suprapubic tenderness. Extremities: No edema, Capillary Refill Less than 3 Seconds Skin: No rashes, No breakdown Musculoskeletal: Tenderness in the left hip and left knee joint. Left knee joint has reactive spasm. ROM restricted because of pain. Neurological: Cranial nerves II-XII grossly intact, DTR 2+/4. No acute focal neurological deficit. Psych/Mental Status: Normal Affect, Appropriate. Assessment & Plan Assessment/Plan (1) Left hip pain: PLAN: Plan 74-year-old gentleman was admitted with a left hip pain, on steroids for back pain. Trying to titrate off. Increased pain since lowering the dose. # Increasing left hip pain -Hip x-ray no acute process -Lower extremity CT reported no acute fracture or dislocation or aggressive osseous abnormality. Left hip joint is intact without erosion or substantial arthrosis. No bony destruction or periosteal reaction appreciated. -Reports very specifically that this pain started when he decreased dose of steroids, discussed going back up on the steroids and patient presently refusing, said he wants to completely get off of the steroids and does not want to go backwards and go up at this time, discussed that we can try supportive care with anti-inflammatories and pain control but if that does not work may need to give higher dose of steroids and have him follow-up with rheumatology -Will continue 20 mg of prednisone which is what patient was supposed to be on 1 try scheduled Tylenol, Toradol and pain control -ESR and CRP were ordered in ED and are pending - PT/OT -Pain control -Supportive care -Case management consult # Hypokalemia -Potassium 2.1 -Patient reports he had ran out of his potassium and due to pain in his leg he had not gone and refilled it so he has not taken potassium in several days -Will replace and repeat BMP # History of pancreatic adenocarcinoma -Status post chemo, reportedly no active disease # History of carotid stenosis - Per chart review -Continue aspirin #DVT ppx: SCDs Clinical Impression(s) from Imaging Studies Hip/Pelvis X-Ray 01/15/25 13:50 IMPRESSION: No acute bony abnormalities. Lower Extremity CT 01/15/25 15:30 IMPRESSION: No acute or aggressive osseous abnormality. Nonspecific small hip joint effusion. Reading Location: [id number]
[2025-01-16 11:00] VITALS: PULSE 82
--- NOTE | 2025-01-16 11:00 | CASEMGMT ---
YOEL ROSARIO Face to Face with patient for initial transition planning/care coordination assessment. RN CM introduced self and role at [facility]. Patient lying in bed, alert and oriented. Patient willing to participate in assessment and is able to answer all questions appropriately. Care providers, pharmacy, and demographics verified. Strata: 2 PCP: Reji Specialists: none Preferred Pharmacy: [facility] Insurance: [employer] Prescription Benefit: yes Living Will/HPOA: none LNOK: sons Living Arrangements: Patient lives alone in a single story home with no steps to enter. Patient is independent at home. Son lives next door. Transportation: self, son DME/HHC: Patient has walker at home. No previous HHC or SNF. Patient wishes to discharge home. RN MARLENE inquired how patient would do at home if he is unable to ambulate on his own. Patient states he has friend that would stay with him. RN CM reviewed SNF level of care with patient, patient adamant that he will not go to SNF if recommended. RN CM discussed HHC vs outpatient, patient states he would like outpatient therapy at discharge and would schedule himself at facility of choice. Patient states he has no further needs or concerns at this time. RN CM to assist with outpatient therapy script. CM to follow for discharge planning needs that may arise. Disposition Plan: Leti BENITEZ, RN, CM
--- NOTE | 2025-01-16 12:44 | CHAPLAIN ---
Type of Pastoral Visit _x__ Initial Visit ___ Follow-up Visit ___ On-call Visit ___ General Patient Visit ___ Spiritual Assessment ___ Family Conference ___ Bereavement ___ Rapid Response ___ Code Blue ___ Other (describe below) Pastoral Care Referral From _x__ Patient ___ Family ___ Nurse ___ Physician ___ Bituminous Distributor Operator ___ Clip Coater ___ Other (describe below) Sacrament/Intervention _x__ Active listening ___ Anointing ___ Faith ___ Bereavement ___ Communion _x__ Rama exploration ___ ___ Life review _x__ Prayer ___ Reconciliation ___ Sacrament of Sick _x__ Supportive presence ___ Wedding ___ Other (describe below) Pastoral Comments patient presents self with a smile and pleasant demeanor but admits to concerns about not being able to walk and the pain in his leg; pt says that his son lives next door and is able to help him; pt still has 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
--- NOTE | 2025-01-16 13:09 | NURSING ---
This RN went into pt room to do MRI questioner and pt is refusing to have the test done. I explained that it was to look to see if he had a stroke and he said that he would not do the test. Dr. Tellez made aware.
[2025-01-16] MEDS: Potassium Chloride Oral Tablet 20 MEQ PO ×2 (14:31→20:37)
[2025-01-16 14:36] VITALS: BP 110/75; PULSE 86; RESP 18; TEMP 36.4; O2SAT 98
--- NOTE | 2025-01-16 17:00 | CASEMGMT ---
YOEL ROSARIO updated hospitalist regarding plan for outpatient therapy at discharge, script received. YOEL ROSARIO provided script to patient with [facility] information and placed in discharge folder. Patient had no further questions or concerns. YOEL ROSARIO updated discharge plan.
[2025-01-16] MEDS: Senna/Docusate Sodium 1 Tablet 2 TABLET PO (20:36)
[2025-01-16 22:00] VITALS: BP 118/70; PULSE 73; RESP 16; TEMP 36.1; O2SAT 99
[2025-01-17] MEDS: MELATONIN 10 MG TABLET PO ×2 (00:43→23:05)
[2025-01-17 04:00] VITALS: BP 128/77; PULSE 74; RESP 16; TEMP 36; O2SAT 99
[2025-01-17] MEDS: Potassium Chloride Oral Tablet 20 MEQ PO ×3 (09:44→20:39)
[2025-01-17] MEDS: Ensure Plus High Protein 120 ML LIQUID PO ×2 (09:46→15:13)
[2025-01-17] MEDS: Arthritis Pain Compound 60 CLICK TUBE TOPICAL (09:47)
[2025-01-17 09:55] VITALS: BP 116/73; PULSE 101; RESP 16; TEMP 36.6; O2SAT 99
--- NOTE | 2025-01-17 12:35 | PCM.PN.HOSP ---
Reason for Visit Chief Complaint: Left hip pain Objective Data Objective Data Vital Signs: Vital Signs Temp Pulse Resp BP Pulse Ox O2 Del Method 98 F 101 H 16 116/73 99 Room Air 01/17/25 09:55 01/17/25 09:55 01/17/25 09:55 01/17/25 09:55 01/17/25 09:55 01/17/25 09:55 Oxygen Delivery Method Room Air Weight: 128 lb 1.417 oz Body Mass Index (BMI) 15.5 Intake & Output: Intake and Output for Last 24 Hours 01/15/25 01/16/25 01/17/25 23:59 23:59 23:59 Intake Total 400 / 400 2000 / 2000 Output Total 1100 / 1100 250 / 250 Balance 400 / 200 900 / 900 -250 / -250 Lab / Micro Data 01/16/25 05:10 01/16/25 05:10 Physical Exam Narrative Left leg knee and hip pain better. Patient able to walk with support to bathroom but still not independent. Did not had a bowel movement but passing flatus Physical exam General: Alert, Oriented x3, Cooperative HEENT: Atraumatic, PERRLA, EOMI, Normocephalic. Oral: No Gingival or Mucosal Lesions/ Ulcerations Neck: Supple, No JVD, Negative Carotid Bruits Chest wall/Lungs: Air entry diminished in bilateral lung bases. No crepitation/rhonchi Cardiovascular: Regular rate and rhythm, Normal S1,S2, No M/G/R Abdomen: Bowel Sounds Present, Soft, Non Tender, Non-Distended : No dysuria. No renal angle tenderness. No suprapubic tenderness. Extremities: No edema, Capillary Refill Less than 3 Seconds Skin: No rashes, No breakdown Musculoskeletal: Mild tenderness in the left hip and left knee joint. L Mild weakness at left knee and hip joint possible due to pain or other etiology Neurological: Cranial nerves II-XII grossly intact, DTR 2+/4. No acute focal neurological deficit. Psych/Mental Status: Normal Affect, Appropriate. Assessment & Plan Assessment/Plan (1) Left hip pain: PLAN: Plan 74-year-old gentleman was admitted with a left hip pain, on steroids for back pain. Trying to titrate off. Left hip increased pain since lowering the dose.Patient stated he did not had diarrhea or acute symptoms before starting steroid for the back pain. Started on a steroid 2-1/2 weeks ago for upper back pain shoulder pain and when lowered the dose he started having pain in the left hip # Increasing left hip pain normal in the left knee and lower thoracic and shoulder area -Hip x-ray no acute process -Lower extremity CT reported no acute fracture or dislocation or aggressive osseous abnormality. Left hip joint is intact without erosion or substantial arthrosis. No bony destruction or periosteal reaction appreciated. He stated that various steroid dose decreased then started having left hip pain although back pain is better. He does not want to full dose of his steroid also as he is very concerned about side effects of the steroid even though I said it might be a short course. Asking for other anti-inflammatory agents. Continue prednisone 20 mg daily. ESR 55 and CRP 93 are elevated and high. Possible differential might be acute inflammatory rheumatological disease, synovitis, palindromic rheumatism/reactive arthritis. Patient denies prior history of diarrhea/ankle lysing his pleuritis or other features of reactive arthritis. Overall, he needs follow-up with ceramic saw tender. Continue PT and OT 01/17: Pain and spasm is better. Zanaflex 2 mg every 8 hourly as needed. Discussed with the PT, left leg and knee is not spontaneously moving forward with strength and but required support. Needs more PT and assessment # Hypokalemia -Potassium 2.1 Repeat BMP shows K3.8. Hypokalemia resolved. # History of pancreatic adenocarcinoma -Status post chemo, reportedly no active disease # History of carotid stenosis - Per chart review -Continue aspirin #DVT ppx: SCDs Clinical Impression(s) from Imaging Studies Hip/Pelvis X-Ray 01/15/25 13:50 IMPRESSION: No acute bony abnormalities. Lower Extremity CT 01/15/25 15:30 IMPRESSION: No acute or aggressive osseous abnormality. Nonspecific small hip joint effusion. Reading Location: [id number] Charges/Coding Visit Charges Inpatient E&M: 66671 Subs Hosp L2
[2025-01-17] MEDS: Senna/Docusate Sodium 1 Tablet 2 TABLET PO ×2 (13:08→20:39)
[2025-01-17] MEDS: Polyethylene Glycol 3350 17 GM PACKET PO (15:12)
[2025-01-17 16:00] VITALS: BP 120/75; PULSE 103; RESP 16; TEMP 36.6; O2SAT 99
[2025-01-17] MEDS: SUZETRIGINE 50 MG PO (20:39)
[2025-01-17 20:45] VITALS: BP 132/82; PULSE 89; RESP 16; TEMP 36.7; O2SAT 98
[2025-01-18 02:45] VITALS: BP 141/93; PULSE 75; RESP 16; TEMP 36.8; O2SAT 98
[2025-01-18] MEDS: Potassium Chloride Oral Tablet 20 MEQ PO ×2 (05:34→14:52)
[2025-01-18] MEDS: Polyethylene Glycol 3350 17 GM PACKET PO (08:18)
[2025-01-18] MEDS: Senna/Docusate Sodium 1 Tablet 2 TABLET PO (08:18)
[2025-01-18] MEDS: Ensure Plus High Protein 120 ML LIQUID PO ×2 (08:18→14:52)
[2025-01-18] MEDS: Arthritis Pain Compound 60 CLICK TUBE TOPICAL (08:19)
[2025-01-18 09:00] VITALS: BP 132/80; PULSE 76; RESP 16; TEMP 37; O2SAT 98
--- NOTE | 2025-01-18 10:33 | PCM.DC ---
Discharge Instructions DC O2, CPAP, BIPAP needs Home O2 Discharge instructions: No Follow Up Care Test Results: Test results from this visit will be discussed in further detail at your follow-up appointment, if applicable. Discharge Plan Admission Admit Date/Time: 01/15/25 16:49 Primary Reason for Your Visit: Left leg weakness. Attending Provider: Scar Tellez Primary Care Provider: Anjelica Mendoza Consulting Providers: Isabelle Nicole Discharge Orders/Prescriptions Prescriptions: New sennosides-docusate sodium [Stimulant Laxative Plus] 8.6-50 mg Tablet 2 tab PO BID Qty: 0 0RF Continued Digestive Enzymes(mal,lac,inv) 2 tab PO/SL TIDCM aspirin 81 mg Tablet,Chewable 81 mg PO BREAKFAST Qty: 30 0RF prednisone 10 mg tablet 20 mg PO QDAY Qty: 90 0RF Rx Instructions: Take 20 mg (2 tabs) daily. Take both tabs at same time. Take with food on the stomach. potassium chloride 20 mEq tablet extended release 20 meq PO TID Qty: 270 1RF Journavx 50 mg tablet 50 mg PO BID PRN (Reason: pain) Qty: 15 0RF Held diphenoxylate-atropine 2.5-0.025 mg tablet 1 tab PO BID PRN (Reason: diarrhea) Qty: 20 0RF Hold Instructions: Hold it because patient having constipation Discontinued potassium chloride 20 mEq/15 mL liquid 20 meq PO TID Qty: 1500 3RF Rx Instructions: Pt. intolerant/unable to take tablet form of potassium. Fill as directed. Referrals / Follow Up: Anjelica Mendoza MD [Primary Care Provider, Internal Medicine - [facility]] Yvrose Etienne MD [Med Staff - Trimming Cutter Machine, RHEUMATOLOGY] - Within 2 Weeks Disposition Disposition (needs filled in before D/C Order can be placed): Home, Self Care
--- NOTE | 2025-01-18 10:40 | DS.PCM_ITS ---
Providers Date of Admission: 01/15/25 Date of Discharge: 01/18/25 Primary Care Physician: Dr. Anjelica Mendoza MD Reason For Visit: LEFT HIP PAIN AND HYPOKALEMIA Diagnosis Discharge Diagnosis (1) Left hip pain: Status: Acute Code(s): M25.552 - Pain in left hip Plan 74-year-old gentleman was admitted with a left hip pain, on steroids for back pain. Trying to titrate off. Left hip increased pain since lowering the dose.Patient stated he did not had diarrhea or acute symptoms before starting steroid for the back pain. Started on a steroid 2-1/2 weeks ago for upper back pain shoulder pain and when lowered the dose he started having pain in the left hip # Increasing left hip pain normal in the left knee and lower thoracic and shoulder area -Hip x-ray no acute process -Lower extremity CT reported no acute fracture or dislocation or aggressive osseous abnormality. Left hip joint is intact without erosion or substantial arthrosis. No bony destruction or periosteal reaction appreciated. He stated that various steroid dose decreased then started having left hip pain although back pain is better. He does not want to full dose of his steroid also as he is very concerned about side effects of the steroid even though I said it might be a short course. Asking for other anti-inflammatory agents. Continue prednisone 20 mg daily. ESR 55 and CRP 93 are elevated and high. Possible differential might be acute inflammatory rheumatological disease, synovitis, palindromic rheumatism/reactive arthritis. Patient denies prior history of diarrhea/ankle lysing his pleuritis or other features of reactive arthritis. Overall, he needs follow-up with md ophthalmologist. Continue PT and OT 01/17: Pain and spasm is better. Zanaflex 2 mg every 8 hourly as needed. Discussed with the PT, left leg and knee is not spontaneously moving forward with strength and but required support. Needs more PT and assessment 01/18: Pain has resolved. Patient has focal weakness of left leg at knee and hip joint. Patient refused for going to intermediate or home PT but agreeable for outpatient physical therapy. Patient has help at home and equipment to assist ambulation. Prescription signed. Discussed with the rehabilitation case coordinator. Has not moved bowels but passing gas. On stool softener. Patient on prednisone. Advised to follow-up with md ophthalmologist Dr. Etienne in 2 weeks # Hypokalemia -Potassium 2.1 Repeat BMP shows K3.8. Hypokalemia resolved. # History of pancreatic adenocarcinoma -Status post chemo, reportedly no active disease # History of carotid stenosis - Per chart review -Continue aspirin #DVT ppx: SCDs Discharge medication reconciliation done. Discharge follow-up instructions completed. Discharge process discussed with the patient and all questions were answered to patient's satisfaction. Follow with PCP in 1 to 2 weeks Total time spent, exact 35 minutes on discharge meds reconciliation, examination, coordination of care with nurses and ancillary staff, review of imaging and blood test and discussion with the patient on follow-up instructions. Clinical Impression(s) from Imaging Studies Hip/Pelvis X-Ray 01/15/25 13:50 IMPRESSION: No acute bony abnormalities. Lower Extremity CT 01/15/25 15:30 IMPRESSION: No acute or aggressive osseous abnormality. Nonspecific small hip joint effusion. Reading Location: [id number] Medications at Discharge Home Medications Digestive Enzymes(mal,lac,inv) 2 tab PO/SL TIDCM DIGESTION 04/26/22 aspirin 81 mg chewable tablet 81 mg PO BREAKFAST [facility] [employer] #30 tabs 04/27/22 potassium chloride 20 mEq tablet,extended release 20 meq PO TID supplement #270 tabs 10/23/24 diphenoxylate-atropine 2.5 mg-0.025 mg tablet 1 tab PO BID PRN diarrhea #20 tabs 12/25/24 Held on 01/18/25. Instructions: Hold it because patient having constipation suzetrigine 50 mg tablet (Journavx) 50 mg PO BID PRN pain #15 tabs 01/14/25 prednisone 10 mg tablet 20 mg (2 x 10 mg) PO QDAY #90 tabs 01/18/25 sennosides 8.6 mg-docusate sodium 50 mg tablet (Stimulant Laxative Plus) 2 tab PO BID #0 tabs 01/18/25 Physical Exam Narrative Seen and examined in the morning. He stated he wants to go home. Left leg knee and hip pain has resolved. Still in problem with ambulation and needs help. Patient able to walk with support to bathroom but still not independent. Did not had a bowel movement but passing flatus. Patient was on Lomotil at home, holding Jardiance patient having constipation Physical exam General: Alert, Oriented x3, Cooperative HEENT: Atraumatic, PERRLA, EOMI, Normocephalic. Oral: No Gingival or Mucosal Lesions/ Ulcerations Neck: Supple, No JVD, Negative Carotid Bruits Chest wall/Lungs: Air entry diminished in bilateral lung bases. No crepitation/rhonchi Cardiovascular: Regular rate and rhythm, Normal S1,S2, No M/G/R Abdomen: Bowel Sounds Present, Soft, Non Tender, Non-Distended : No dysuria. No renal angle tenderness. No suprapubic tenderness. Extremities: No edema, Capillary Refill Less than 3 Seconds Skin: No rashes, No breakdown Musculoskeletal: No tenderness in the left hip and left knee joint. Mild weakness at left knee and hip joint. Neurological: Cranial nerves II-XII grossly intact, DTR 2+/4. No acute focal neurological deficit. Psych/Mental Status: Normal Affect, Appropriate. Weight / BMI Weight Weight: 127 lb 10.362 oz Body Mass Index (BMI) 15.5 ABG / Lab / Microbiology Data 01/16/25 05:10 01/16/25 05:10 D/C Instructions DC O2, CPAP, BIPAP Needs Home O2 Discharge instructions: No Meaningful Use Info Meaningful Use Meaningful Use Diagnoses (Choose all that apply): None applicable Discharge Plan Admission Admit Date/Time: 01/15/25 16:49 Primary Reason for Your Visit: Left leg weakness. Attending Provider: Scar Tellez Primary Care Provider: Anjelica Mendoza Consulting Providers: Isabelle Nicole Discharge Orders/Prescriptions Prescriptions: New sennosides-docusate sodium [Stimulant Laxative Plus] 8.6-50 mg Tablet 2 tab PO BID Qty: 0 0RF Continued Digestive Enzymes(mal,lac,inv) 2 tab PO/SL TIDCM aspirin 81 mg Tablet,Chewable 81 mg PO BREAKFAST Qty: 30 0RF prednisone 10 mg tablet 20 mg PO QDAY Qty: 90 0RF Rx Instructions: Take 20 mg (2 tabs) daily. Take both tabs at same time. Take with food on the stomach. potassium chloride 20 mEq tablet extended release 20 meq PO TID Qty: 270 1RF Journavx 50 mg tablet 50 mg PO BID PRN (Reason: pain) Qty: 15 0RF Held diphenoxylate-atropine 2.5-0.025 mg tablet 1 tab PO BID PRN (Reason: diarrhea) Qty: 20 0RF Hold Instructions: Hold it because patient having constipation Discontinued potassium chloride 20 mEq/15 mL liquid 20 meq PO TID Qty: 1500 3RF Rx Instructions: Pt. intolerant/unable to take tablet form of potassium. Fill as directed. Referrals / Follow Up: Anjelica Mendoza MD [Primary Care Provider, Internal Medicine - [facility]] Yvrose Etienne MD [Med Staff - Phy Therapist, RHEUMATOLOGY] - Within 2 Weeks Disposition Disposition (needs filled in before D/C Order can be placed): Home, Self Care Charges/Coding Visit Charges Inpatient E&M: 52283 Disch Hosp >30min
[2025-01-18 15:00] VITALS: BP 127/71; PULSE 76; RESP 16; TEMP 36.9; O2SAT 98
== END 2025-01-18 17:37 | disposition home or self-care (01) | DRG 556 ==
LOC: ED 16:50 → PCU 17:26
PROVIDERS: Admitting Provider Internal Medicine; Emergency Provider Emergency Medicine; PCP Internal Medicine; Visit Provider Internal Medicine
DX: M25.552 Pain in left hip (principal); Z68.1 Body mass index [BMI] 19.9 or less, adult; D64.9 Anemia, unspecified; I65.29 Occlusion and stenosis of unspecified carotid artery; E87.6 Hypokalemia; M54.6 Pain in thoracic spine; M25.562 Pain in left knee; K59.00 Constipation, unspecified; M54.2 Cervicalgia; R26.2 Difficulty in walking, not elsewhere classified; R25.2 Cramp and spasm; R63.6 Underweight; R29.898 Other symptoms and signs involving the musculoskeletal system; Z85.07 Personal history of malignant neoplasm of pancreas; Z86.19 Personal history of other infectious and parasitic diseases; Z79.82 Long term (current) use of aspirin; Z90.49 Acquired absence of other specified parts of digestive tract; Z79.899 Other long term (current) drug therapy; Z92.21 Personal history of antineoplastic chemotherapy; Z91.148 Patient's other noncompliance with medication regimen for other reason; Z79.52 Long term (current) use of systemic steroids
CPT/HCPCS: 36415; 73502; 73700; 80048; 83735; 85025; 85652; 86140; 97110; 97116; 97162; 97166; 97530; 97535; 97802; 99284; A4216; J2405

== ENCOUNTER 2025-03-26 11:40 | Emergency (ER) | payer MEDICARE, SELFPAY ==
[2025-03-26 11:41] VITALS: BP 214/190; PULSE 77; RESP 26; TEMP 36.6; O2SAT 99
--- NOTE | 2025-03-26 11:57 | EDS_ITS ---
HPI History of Present Illness HPI Narrative: 74-year-old male [id number]. History of pancreatic cancer. 30 years ago said he had an elbow fracture which he had surgically repaired. Describes left elbow pain is started today. He was doing some lifting yesterday. Denies any fall or trauma the pain did not start for the day. Denies any fever or chills. Says he has difficulty moving the elbow. He said he can never completely straighten out the elbow because of the prior fracture but it moves better and it did today. Denies any other complaints. Chief Complaint: Upper Extremity Injury Informant: patient Occured/Mechanism Mechanism/Context: No injury and No blunt trauma Comment: Denies any trauma. Onset/Context/Timing Onset: Hours Context: Gradual Onset Timing: Continuous Quality of Pain: Sharp Current Severity: Moderate Maximum Severity: Moderate Associated Symptoms Associated Symptoms: Negative for Parasthesia, Weakness or Loss of Funtion Narrative Narrative: 74-year-old male prior left elbow fracture 30 years ago with surgical repair complaining of atraumatic left elbow pain today. Denies fever or chills. Denies fall or trauma. Prior similar symptoms: No Recent Illness/Hospitalization: No PFSH PFS Medical History Hearing loss, left Hearing loss, right Cancer Non-smoker Left hip pain Polymyalgia rheumatica Diarrhea Cervical pain (neck) Easy fatigability Thoracic back pain Dry mouth Nausea Hypokalemia Port Plalcement PIN IN LEFT ARM Herpes zoster Hearing loss Carotid artery stenosis Adenocarcinoma of pancreas Home Medications ?Medication ?Instructions ?Recorded ?Last Taken ?Type Digestive Enzymes(mal,lac,inv) 2 tab PO/SL TIDCM DIGES TION 04/26/22 Unknown History aspirin 81 mg chewable tablet 81 mg PO BREAKFAST heart health 04/27/22 Unknown Rx #30 tabs potassium chloride 20 mEq 20 meq PO TID supplement #27 0 tabs 10/23/24 Unknown Rx tablet,extended release diphenoxylate-atropine 2.5 1 tab PO BID PRN diarrhea # 20 tabs 12/25/24 Unknown Rx mg-0.025 mg tablet Held on 01/18/25. Instructions: Hold it because patient having constipation suzetrigine 50 mg tablet (Journavx) 50 mg PO BID PRN p ain #15 tabs 01/14/25 Unknown Rx sennosides 8.6 mg-docusate sodium 2 tab PO BID #0 tabs 01/18/25 Unknown Rx 50 mg tablet (Stimulant Laxative Plus) prednisone 1 mg tablet 4 mg (4 x 1 mg) PO QDAY #180 tabs 03/09/25 Unknown Rx hydrocodone 7.5 mg-acetaminophen 1 tab PO Q6H PRN pain 7 days #14 03/26/25 Unknown Rx 325 mg tablet tabs Allergy/AdvReac Type Severity Reaction Status Date / Time acetaminophen (From Vicodin) AdvReac Intermediate Nausea/Vom/ Verified 03/26/25 11:44 Diarrhea hydrocodone (From Vicodin) AdvReac Intermediate Nausea/Vom/ Verified 03/26/25 11:44 Diarrhea Family History Son No problems noted. Sister Diabetes Mother CAD (coronary artery disease) Grandmother Breast cancer Surgical History whipple surgery History of cholecystectomy Social History Smoking Status: Never smoker alcohol intake: current alcohol intake frequency: holidays/special occasions only substance use type: does not use ROS ROS ED ROS Narrative Denies recent illness. Constitutional Constitutional ED: Denies fever(s) Eyes Eyes: Denies blurry vision ENT ENT ED: Denies ear pain Cardiovascular Cardiovascular: Denies chest pain Respiratory/Chest Respiratory/Chest: Denies cough or dyspnea Gastrointestinal Gastrointestinal: Denies abdominal pain Genitourinary Genitourinary ED: Denies dysuria or hematuria Musculoskeletal Musculoskeletal: Denies back pain Integumentary Denies abscess Neurologic Neurologic: Denies headache(s) Psychiatric Psychiatric: Reports anxiety; Denies depression Endocrine Endocrinology: Denies cold intolerance Hematologic/Lymphatic Hematologic/Lymphatic: Denies easy bleeding, easy bruising or lymphadenopathy Allergic/Immunologic Allergic/Immunologic ED: Denies mouth swelling, tongue swelling or urticaria EXAM Physical Exam Narrative Exam Narrative: 72-year-old male vital signs are stable afebrile does not look septic or toxic complaint left elbow pain. Initial blood pressures reported 214/190 that will be rechecked. He complained of elbow pain. He does not look septic or toxic. H EENT exam pupils round react to light. Moist mucous membranes. Neck nontender no lymphadenopathy. Lungs clear to auscultation bilaterally. Heart regular rhythm rate about 75 no murmur. Chest wall ribs nontender. Abdomen soft nontender. Back nontender. Moving all 4 extremities. Neurovascularly intact. Left shoulder nontender no axillary lymphadenopathy. Left wrist and hand nontender. Wrist nontender on swelling. 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 Normal touch sensation. Normal radial pulse. Left elbow minimally swollen. He is holding it in a flexed position at 90 degrees. Complains of pain with extension. No large effusion. No lymphangitic streaking. No cellulitis no. No bursitis. No signs of trauma or bony deformity. Patient is awake alert. Answering questions following commands. He is anxious. Const Vital Signs: 03/26/25 11:41 Temperature 97.9 F Temperature Source Oral Pulse Rate 77 Respiratory Rate 26 H Blood Pressure 214/190 H Blood Pressure Mean 198 Pulse Ox 99 Oxygen Delivery Method Room Air MDM MDM MDM Narrative Medical decision making narrative: 74-year-old male with atraumatic left elbow pain began today. History of prior fracture and surgical repair. Denies fever or chills. No history of trauma. X-ray will be obtained screening labs of the sed rate and CRP. This could be early infection and could be overuse. Does not look dislocated and there is no history of trauma to think it would be fractured. Will be given morphine for pain and Zofran. Repeat exam patient was given second dose of pain medication is doing better. Reexamination elbow is really no significant swelling. There is no significant effusion. He has chronic arthritic changes to the elbow and increased bone compared to the right from his prior fracture. There is no cellulitis. No lymphangitic streaking. No axillary lymphadenopathy. He is able to flex and extend it he has discomfort but it does not appear to be a septic joint at this time. 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 I discussed with the patient and his son at bedside test results. Clinically at this time I think this is all osteoarthritis. He is comfortable being discha rged home he knows if he develops a fever, chills or swelling or redness to return otherwise he will follow-up with orthopedics tomorrow. He knows to call for an appointment with [facility] orthopedics. I have Dr. Daryl Queen on page to try to ensure close follow-up. Patient be written for [facility]! for pain. History & Record Review Discussion w/independent historian: Patient Additional record(s) reviewed:: Prior outpatient record, Prior ED visit and Prior labs Lab Data Attestation: I reviewed the patient's lab results. Radiography Diagnostic Testing: Left elbow x-ray, 4 views, interpreted by myself shows a prosthesis in the elbow. There appears to be a fracture mostly to the old on the medial epicondyle of the distal humerus. I do not think it is acute.. No dislocation. Significant osteoarthritis. No large effusion. Radiologist also read the film and agrees. Discharge Plan Triage Chief Complaint: Upper Extremity Injury ED Provider: Tariq Wilder Dx/Rx/DC Orders Clinical Impression: Elbow pain, left, Osteoarthritis Instructions: ED Osteoarthritis Prescriptions: New hydrocodone-acetaminophen 7.5-325 mg tablet 1 tab PO Q6H PRN (Reason: pain) 7 Days Qty: 14 0RF No Action Digestive Enzymes(mal,lac,inv) 2 tab PO/SL TIDCM aspirin 81 mg Tablet,Chewable 81 mg PO BREAKFAST Qty: 30 0RF sennosides-docusate sodium [Stimulant Laxative Plus] 8.6-50 mg Tablet 2 tab PO BID Qty: 0 0RF potassium chloride 20 mEq tablet extended release 20 meq PO TID Qty: 270 1RF diphenoxylate-atropine 2.5-0.025 mg tablet 1 tab PO BID PRN (Reason: diarrhea) Qty: 20 0RF Journavx 50 mg tablet 50 mg PO BID PRN (Reason: pain) Qty: 15 0RF prednisone 1 mg tablet 4 mg PO QDAY Qty: 180 0RF Primary Care Provider: Anjelica Mendoza Referrals: Anjelica Mendoza MD [Primary Care Provider, Internal Medicine - [facility]] Daryl Queen MD [Med Staff - Active Staff, Orthopedics] - 1 Day Referral Note: Call his office today to set up appointment to be rechecked tomorrow to have your elbow reevaluated. Activity Restrictions/Additional Instructions: Ice your elbow to decrease the pain and inflammation. Pain medication as prescribed as needed. If you develop a fever, chills or redness to your elbow or worsening pain just return. Currently there is no signs of infection I think this is all from osteoarthritis. Make sure you call the orthopedic office today, was to orthopedics, Dr. Daryl Queen in 7 appointment to be rechecked tomorrow. Print Language: Micronesian Disposition Disposition: Home, Self Care
[2025-03-26 12:02] VITALS: BMI 17.3
[2025-03-26 12:15] LABS: Hematocrit 34.4 % (40-54); Hemoglobin 11.0 g/dL (13.0-16.5); Immature Granulocytes Count 0.050 X10^3/uL (0.0-0.0); Mean Corp Hgb Conc 32.0 g/dL (32-36); Mean Corpuscular Volume 87.5 fL (80-94); Mean Platelet Vol. 9.0 fl (6.2-12.0); NRBC Flagged by Analyzer 0 % (0-5); POSITIVE DIFFERENTIAL YES; Platelet Count 399 K/mm3 (150-450); RBC Distribution Width CV 17.9 % (11.6-14.6); RBC Distribution Width SD 57.2 fl (35.1-43.9); Red Blood Count 3.93 M/mm3 (4.6-6.2); White Blood Count 11.4 K/mm3 (4.4-11.0)
--- NOTE | 2025-03-26 12:26 | RAD_ITS ---
PROCEDURE: ELBOW MIN 3 VIEWS 03/26/2025 REASON FOR EXAM: ATRAUMATIC LEFT ELBOW PAIN. TECHNIQUE: Procedure Code: RADEL Modality: DX Procedure: ELBOW MIN 3 VIEWS Laterality: Left COMPARISON: None. FINDINGS: Bones: Status post reconstruction of the radial head with metallic hardware. A corticated defect at the anterior cortex of the medial humeral condyle consistent with age-indeterminate fracture. Joints: Well aligned. Arthritic changes at the humeral ulnar joint with sclerosis. Displacement of the anterior and posterior fat pads consistent with elbow effusion. Soft tissues: No soft tissue abnormalities. RAD/Elbow min 3 Views IMPRESSION: A corticated defect at the anterior cortex of the medial humeral condyle consis tent with age-indeterminate fracture. Elbow effusion. Follow-up x-ray in 1 week may be performed for further evaluation de pendent on clinical background. Reading Location: [id number]
[2025-03-26 12:43] LABS: Anion Gap 9 (5-15); BUN 13 mg/dL (4-19); BUN/Creat Ratio 19.5 RATIO (10-20); CRP 5.44 mg/L (0.0-3.0); Calcium,Total 8.4 mg/dL (7.6-11.0); Carbon Dioxide 21.5 mmol/L (21.0-32.0); Chloride 107 mmol/L (98-108); Estimated Creatinine Clearance 61.15 ml/min (50-250); Glucose 108 mg/dL (70-99); Potassium 3.6 mmol/L (3.3-5.1)
[2025-03-26 15:12] VITALS: BP 113/78; PULSE 89; RESP 16; TEMP 37.1; O2SAT 99
== END 2025-03-26 15:29 | disposition home or self-care (01) ==
PROVIDERS: Emergency Provider Emergency Medicine; PCP Internal Medicine; Visit Provider Emergency Medicine
DX: M19.022 Primary osteoarthritis, left elbow (principal)
CPT/HCPCS: 73080; 80048; 85025; 85652; 86140; 96374; 96375; 96376; 99283; A4216; J2405